=== PATIENT | male | born 1975 | race Caucasian/White ===

== ENCOUNTER 2024-02-07 15:39 | Inpatient (IN) | payer BC, SELFPAY ==
[2024-02-07] VITALS (65 sets, daily range): BP systolic 147–240; BP diastolic 87–140; PULSE 63–85; TEMP 36.4–36.9; O2SAT 94–98; BMI 53.1; BMI 53.9
--- NOTE | 2024-02-07 15:57 | XR_ITS ---
The [address] [address] Patient Name: HEMANTH RIVERA MRN: [id number] date: 1975 Sex: M Assigned Patient Location: ER Current Patient Location: ER Accession/Order Number: [id number] Exam Date: 02/07/2024 16:15 Report Date: 02/07/2024 16:27 At the request of: VALERIE PAULSON Procedure: XR chest 1V EXAMINATION: XR chest 1V HISTORY: SOB COMPARISON: No relevant comparison available. FINDINGS: LUNGS: Mild haziness within the mid lung regions bilaterally partially obscuring the bronchovascular markings. Slight wall thickening of a few bronchi. VASCULATURE: No increased pulmonary vasculature. PLEURA: No pneumothorax, effusion, or pleural thickening. CARDIAC: No cardiomegaly or cardiac silhouette abnormality. MEDIASTINUM: No visible mass or adenopathy. BONES: No fracture or visible bone lesion. OTHER: Negative. XR/XR chest 1V IMPRESSION: 1. Examination is limited by patient body habitus and AP portable technique. 2. Possible mild bronchiolitis. 2. Mild pulmonary infiltrates/pulmonary edema versus atelectasis. Electronically authenticated by: JUAN JC Date: 02/07/2024 16:27
--- NOTE | 2024-02-07 15:57 | ECG_ITS ---
The [facility] Test Date: 2024-02-07 Pat Name: HEMANTH RIVERA Department: Room: - Gender: Male [employer] Worker: : 1975 Requested By: Order Number: [id number] Reading MD: AJ MURRAY Measurements Intervals [place] Rate: 63 P: 20 [place]: 190 QRS: -50 QRSD: 102 T: 77 QT: 420 QTc: 427 Interpretive Statements 1100 Sinus rhythm 2630 Left anterior fascicular block 5234 Left ventricular hypertrophy with repolarization abnormality 9150 abnormal ECG No previous ECG available for comparison Electronically Signed On 02-08-2024 8:56:40 EST by AJ MURRAY
--- NOTE | 2024-02-07 15:58 | ED.GENADUL1 ---
HPI HPI - General Adult General Chief complaint: Shortness of Breath/Dyspnea Stated complaint: SOB Time Seen by Provider: 02/07/24 15:48 History of Present Illness HPI narrative: 49-year-old male presents for shortness of breath. He has been having this for for 5 days and it only comes on with exertion. He has not had any pain or fever or cough. He has had no symptoms like this in the past. He does not smoke and never did. He has no history of asthma or heart disease. He has a history of hypertension and has been taking his blood pressure medicine regularly. He reports he had an ultrasound of his leg 2 days ago at another facility to check the valves. He does not know the result of the test. Related Data Home Medications ?Medication ?Instructions ?Recorded ?Confirmed hydrochlorothiazide 25 mg tablet mg 02/07/24 lisinopril 40 mg tablet mg 02/07/24 metoprolol succinate 200 mg mg PO 02/07/24 tablet,extended release 24 hr Allergies Allergy/AdvReac Type Severity Reaction Status Date / Time No Known Drug Allergies Allergy Verified 02/07/24 15:49 Opioid HPI Opioid Management Most Recent Opioid Data: No Data to Display Review of Systems ROS Narrative A ten point review of systems is negative except as noted above. PFSH PFSH Social History Little interest or pleasure in doing things: not at all Feeling down, depressed, or hopeless: not at all Exam Narrative Exam Narrative: Nurses note and vital signs reviewed and patient is not hypoxic. General: The patient appears well and in no apparent distress and is speaking in full sentences. Patient is resting comfortably on cart. Skin: Warm, dry, no pallor noted. There is no rash noted. Head: Normocephalic, atraumatic Eye: Normal conjunctiva, no drainage Ears, Nose, Mouth, and Throat: oral mucosa is moist. Nares patent. Cardiovascular: Regular Rate and Rhythm Respiratory: Patient is in no distress, no accessory muscle use, lungs are clear to auscultation, no wheezing, rales or rhonchi Back: non-tender GI: Obese and nontender Musculoskeletal: Left leg is swollen compared to the right Neurological: A&O, normal speech Psychiatric: Cooperative Constitutional Vital Signs, click to edit/add: Last Vital Signs Temp 98.4 F 02/07/24 15:53 Pulse 67 02/07/24 15:53 Resp 18 02/07/24 15:53 BP 188/100 H 02/07/24 17:57 Pulse Ox 95 02/07/24 16:14 O2 Del Method Room Air 02/07/24 16:14 Course Vital Signs Vital signs: Vital Signs Temperature 98.4 F 02/07/24 15:53 Pulse Rate 67 02/07/24 15:53 Respiratory Rate 18 02/07/24 15:53 Blood Pressure 200/140 H 02/07/24 15:53 Pulse Oximetry 96 02/07/24 15:53 Oxygen Delivery Method Room Air 02/07/24 15:53 Temperature 98.4 F 02/07/24 15:53 Pulse Rate 67 02/07/24 15:53 Respiratory Rate 18 02/07/24 15:53 Blood Pressure 188/100 H 02/07/24 17:57 Pulse Oximetry 95 02/07/24 16:14 Oxygen Delivery Method Room Air 02/07/24 16:14 Medical Decision Making MDM Narrative Medical decision making narrative: Chest x-ray is consistent with heart failure and BUN and creatinine are elevated. In December of last year he had a normal BUN and creatinine. He was given IV Bumex and is being admitted. D-dimer is elevated but he had a negative Doppler of his left leg on February 04, 2 days ago. He will likely need VQ scan because he cannot receive IV contrast and was given a single dose of Lovenox here. He is hemodynamically stable and agreeable for admission. Treatment diagnosis and disposition were discussed with the patient Differential Diagnosis Differential Diagnosis: Pneumonia, heart failure, pulmonary edema, kidney failure Lab Data Lab results reviewed: Yes I reviewed the patient's lab results Labs: Lab Results 02/07/24 02/07/24 Range/Units 16:08 17:47 WBC 9.0 (4.0-11.0) 10^3/uL RBC 4.16 L (4.70-6.10) 10^6/uL Hgb 12.1 L (14.0-18.0) g/dL Hct 37.7 L (42.0-54.0) % MCV 90.6 (80.0-94.0) fL MCH 29.1 (25.9-34.0) pg MCHC 32.1 (29.9-35.2) g/dL RDW 13.2 (11.0-15.0) % Plt Count 305 (150-450) 10^3/uL MPV 10.6 (9.5-13.5) fL Neut % (Auto) 65.5 (43.0-75.0) % Lymph % (Auto) 23.1 (20.5-60.0) % [place] % (Auto) 5.9 (1.7-12.0) % Eos % (Auto) 4.1 (0.9-7.0) % Baso % (Auto) 1.2 (0.2-2.0) % Neut # (Auto) 5.9 (1.4-6.5) 10^3/uL Lymph # (Auto) 2.1 (1.2-3.8) 10^3/uL [place] # (Auto) 0.5 (0.3-0.8) 10^3/uL Eos # (Auto) 0.4 (0.0-0.7) 10^3/uL Baso # (Auto) 0.1 (0.0-0.1) 10^3/uL Abs Immat Gran (auto) 0.02 (0.00-0.03) 10^3/uL Imm/Tot Granulo (auto) 0.2 (0.0-0.5) % D-Dimer 1.47 H* (<=0.59) mg/L FEU Sodium 142 (136-145) mmol/L Potassium 4.6 (3.5-5.1) mmol/L Chloride 108 H (98-107) mmol/L Carbon Dioxide 26.5 (21.0-32.0) mmol/L Anion Gap 12.1 BUN 41.0 H (7.0-18.0) mg/dL Creatinine 2.81 H (0.70-1.30) mg/dL Est GFR ( Amer) 29 L (>=60 mL/min/1.73m^2) Est GFR (Non-Af Amer) 24 L (>=60 mL/min/1.73m^2) BUN/Creatinine Ratio 14.6 Glucose 101 (74-106) mg/dL Calcium 8.5 (8.5-10.1) mg/dL Troponin I High Sens 79.2 H* 70.6 (4.0-76.1) pg/mL Influenza Type A Ag Negative Influenza Type B Ag Negative SARS-CoV-2 Ag (CV2AG) Negative (NEGATIVE) Imaging Data Chest x-ray: Radiologist's impression: ITS Impressions Chest X-Ray 02/07/24 15:57 IMPRESSION: 1. Examination is limited by patient body habitus and AP portable technique. 2. Possible mild bronchiolitis. 2. Mild pulmonary infiltrates/pulmonary edema versus atelectasis. Electronically authenticated by: JUAN JC Date: 02/07/2024 16:27 ECG Data Attestation: I personally reviewed and interpreted this ECG as follows: (EKG on my interpretation shows normal sinus rhythm with LVH) Critical Care Time Critical Care Time Critical Care Time: Yes Total Critical Care Time: 35 Attestation: Due to the high probability of sudden and clinically significant deterioration in the patient's condition he/she required the highest level of my preparedness to intervene urgently I provided critical care time including documentation time, medication orders and management, reevaluation, vital sign assessment, ordering and reviewing of lab tests, ordering and reviewing of x-ray studies, and admission orders. Aggregate critical care time is 35 minutes including only time during which I was engaged in work directly related to his/her care and did not include time spent treating other patients simultaneously. Discharge Plan Discharge Chief Complaint: Shortness of Breath/Dyspnea Clinical Impression: Congestive heart failure, Acute kidney injury, Essential hypertension Patient Disposition: Admitted As Inpatient Time of Disposition Decision: 18:30 Condition: Fair
[2024-02-07 16:28] LABS: Basophils Absolute Auto 0.1 10^3/uL (0.0-0.1); Basophils Percent Auto 1.2 % (0.2-2.0); Eosinophils Absolute Auto 0.4 10^3/uL (0.0-0.7); Eosinophils Percent Auto 4.1 % (0.9-7.0); Hematocrit 37.7 % (42.0-54.0); Hemoglobin 12.1 g/dL (14.0-18.0); Immature Granulocytes Abs Auto 0.02 10^3/uL (0.00-0.03); Immature Granulocytes Pct Auto 0.2 % (0.0-0.5); Lymphocytes Absolute Auto 2.1 10^3/uL (1.2-3.8); Lymphocytes Percent Auto 23.1 % (20.5-60.0); Mean Corpuscular HGB Conc 32.1 g/dL (29.9-35.2); Mean Corpuscular Hemoglobin 29.1 pg (25.9-34.0); Mean Corpuscular Volume 90.6 fL (80.0-94.0); Mean Platelet Volume 10.6 fL (9.5-13.5); Monocytes Absolute Auto 0.5 10^3/uL (0.3-0.8); Monocytes Percent Auto 5.9 % (1.7-12.0); Neutrophils Absolute Auto 5.9 10^3/uL (1.4-6.5); Neutrophils Percent Auto 65.5 % (43.0-75.0); Platelet Count 305 10^3/uL (150-450); Red Blood Count 4.16 10^6/uL (4.70-6.10); Red Cell Distribution Width 13.2 % (11.0-15.0)
[2024-02-07 16:41] LABS: Influenza Virus A Antigen Negative; Influenza Virus B Antigen Negative; Internal Control Within Normal Limits; SARS-CoV-2 Ag NEGATIVE (NEGATIVE)
[2024-02-07 16:49] LABS: Anion Gap 12.1; BUN Creatinine Ratio 14.6; Calcium 8.5 mg/dL (8.5-10.1); Carbon Dioxide 26.5 mmol/L (21.0-32.0); Chloride 108 mmol/L (98-107); Estimated GFR (African America 29 (>=60 mL/min/1.73m^2); Estimated GFR (Non-African Ame 24 (>=60 mL/min/1.73m^2); Glucose 101 mg/dL (74-106); Potassium 4.6 mmol/L (3.5-5.1); Sodium 142 mmol/L (136-145)
[2024-02-07 16:57] LABS: D Dimer 1.47 mg/L FEU (<=0.59)
[2024-02-07 16:58] LABS: Troponin I High Sensitivity 79.2 pg/mL (4.0-76.1)
[2024-02-07] MEDS: HYDRALAZINE HCL 20 MG/ML VIAL 10 MG IVP ×2 (17:12→18:39)
[2024-02-07 18:11] LABS: Troponin I High Sensitivity 70.6 pg/mL (4.0-76.1)
[2024-02-07] MEDS: BUMETANIDE 1 MG/4 ML VIAL IVP (18:39)
[2024-02-07] MEDS: ENOXAPARIN SODIUM 100 MG/ML SYRINGE 150 MG SUBQ (18:40)
[2024-02-07] MEDS: LABETALOL HCL 20 MG/4 ML SYRINGE 10 MG IVP (21:10)
[2024-02-07] MEDS: NITROGLYCERIN 0.4 MG BOTTLE SL (21:11)
[2024-02-07 21:36] LABS: Troponin I High Sensitivity 68.6 pg/mL (4.0-76.1)
[2024-02-07] MEDS: NICARDIPINE IN NACL, ISO-OSM 40 MG/200 ML PIGGYBACK 25 MG IV (21:57)
[2024-02-07 22:00] LABS: Magnesium 2.1 mg/dL (1.8-2.4)
[2024-02-07 22:42] LABS: Bilirubin Urine NEGATIVE (NEGATIVE); Blood Urine SMALL (NEGATIVE); Clarity Urine CLEAR (CLEAR); Color Urine LT. YELLOW (YELLOW); Glucose Urine UA NEGATIVE (NEGATIVE); Ketones Urine NEGATIVE (NEGATIVE); Leukocyte Esterase Urine NEGATIVE (NEGATIVE); Nitrite Urine NEGATIVE (NEGATIVE); Protein Urine >=300 mg/dL (NEG/TRACE); Specific Gravity Urine 1.015 (1.005-1.025); Urobilinogen Urine 0.2 EU/dL (0.2-1.0); pH Urine 6.5 (5.0-9.0)
[2024-02-07 22:54] LABS: Amphetamine Screen Urine NEGATIVE (NEGATIVE); Bacteria Urine TRACE #/HPF (NONE SEEN); Barbiturates Screen Urine NEGATIVE (NEGATIVE); Benzodiazepines Screen Urine NEGATIVE (NEGATIVE); Buprenorphine Screen Urine NEGATIVE (NEGATIVE); Cannabinoid Screen Urine NEGATIVE (NEGATIVE); Cast Seen? NONE SEEN #/LPF (NONE SEEN); Cocaine Screen Urine NEGATIVE (NEGATIVE); Crystals Seen? None Seen #/HPF (None Seen); Methadone Screen Urine NEGATIVE (NEGATIVE); Methamphetamines Screen Urine NEGATIVE (NEGATIVE); Mucus Urine NONE SEEN (NONE SEEN); Opiate Screen Urine NEGATIVE (NEGATIVE); Oxycodone Screen Urine NEGATIVE (NEGATIVE); Phencyclidine Screen Urine NEGATIVE (NEGATIVE); RBC Urine 0-2 #/HPF (0-2); Squamous Epithelial Cell Urine NONE SEEN #/LPF (NONE/RARE); Tricyclic Antidepressant Urine NEGATIVE (NEGATIVE); WBC Urine 0-2 #/HPF (NONE SEEN)
[2024-02-08] VITALS (73 sets, daily range): BP systolic 120–203; BP diastolic 73–127; PULSE 56–88; TEMP 36.5–36.7; O2SAT 93–97
[2024-02-08] MEDS: NICARDIPINE IN NACL, ISO-OSM 40 MG/200 ML PIGGYBACK 25 MG IV (04:15)
[2024-02-08] MEDS: ACETAMINOPHEN 325 MG TABLET 650 MG PO (05:17)
[2024-02-08 06:38] LABS: Basophils Absolute Auto 0.1 10^3/uL (0.0-0.1); Basophils Percent Auto 1.2 % (0.2-2.0); Eosinophils Absolute Auto 0.3 10^3/uL (0.0-0.7); Eosinophils Percent Auto 3.5 % (0.9-7.0); Hematocrit 39.2 % (42.0-54.0); Hemoglobin 12.6 g/dL (14.0-18.0); Immature Granulocytes Abs Auto 0.01 10^3/uL (0.00-0.03); Immature Granulocytes Pct Auto 0.1 % (0.0-0.5); Lymphocytes Absolute Auto 2.3 10^3/uL (1.2-3.8); Lymphocytes Percent Auto 25.4 % (20.5-60.0); Mean Corpuscular HGB Conc 32.1 g/dL (29.9-35.2); Mean Corpuscular Hemoglobin 28.8 pg (25.9-34.0); Mean Corpuscular Volume 89.5 fL (80.0-94.0); Mean Platelet Volume 10.7 fL (9.5-13.5); Monocytes Absolute Auto 0.5 10^3/uL (0.3-0.8); Neutrophils Absolute Auto 5.8 10^3/uL (1.4-6.5); Neutrophils Percent Auto 63.8 % (43.0-75.0); Platelet Count 325 10^3/uL (150-450); Red Blood Count 4.38 10^6/uL (4.70-6.10); Red Cell Distribution Width 13.3 % (11.0-15.0); White Blood Count 9.1 10^3/uL (4.0-11.0)
--- NOTE | 2024-02-08 06:53 | P.HP_ITS ---
HPI H&P: HPI History of Present Illness Chief complaint: CHF , DELIO, ESSENTIAL HYPERTENSION, Narrative: Patient presented to the emergency room with increasing shortness of breath, some headache. Mostly just the shortness of breath. In ER found to have significantly elevated high blood pressure and acute renal failure. Patient admitted for workup and treatment of same Opioid HPI Opioid Management Most Recent Pain and Opioid Data: Last Pain Scale 1 02/08/24 06:35 02/08/24 Last Pain Assessment 02/08/24 12:00 Last MAR Pain Assessment 02/08/24 06:35 Last ORT Total Score 0 02/07/24 20:37 02/07/24 Last ORT Risk Category Low Risk 02/07/24 20:37 02/07/24 Ur Phencyclidine Scrn Negative (NEGATIVE) 02/07/24 22:28 08/25 Review of Systems ROS Status of ROS 10 or more systems reviewed and unremark able except as noted in history and below PFSH PFSH Medical History Hypertension ?I10 - Essential (primary) hypertension (ICD-10) Family History Other Family history of diabetes mellitus Family history of hypertension Family history of myocardial infarction Social History Within the past year, how often did you have a drink containing alcohol: monthly or less Within the past year, how many standard drinks containing alcohol did you have on a typical day: 1 or 2 Total score: 0 Score interpretation: A score less than 4 is consistent with normal alcohol consumption. 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 Highest level of school completed/degree received: high school graduate Are you now , , , , never or living with a partner: In a typical week, how many times do you talk on the telephone with family, friends, or neighbors: 3 or more times per week How often do you get together with friends or relatives: 3 or more times per week Little interest or pleasure in doing things: not at all Feeling down, depressed, or hopeless: not at all Do you think of yourself as: straight/heterosexual Gender Identity: male Meds Home Medications and Allergies Home Medications ?Medication ?Instructions ?Recorded ?Confirmed ?Type hydrochlorothiazide 25 mg tablet 25 mg PO DAILY 02/07/24 02/07/24 History lisinopril 40 mg tablet 40 mg PO DAILY 02/07/24 02/07/24 History metoprolol succinate 200 mg 200 mg PO DAILY 02/07/24 02/07/24 History tablet,extended release 24 hr Allergies Allergy/AdvReac Type Severity Reaction Status Date / Time No Known Drug Allergies Allergy Verified 02/07/24 15:49 Exam Constitutional Vital Signs, click to edit/add: Last Vital Signs Temp 98.2 F 02/07/24 23:32 Pulse 70 02/08/24 06:15 Resp 16 02/08/24 06:15 BP 167/86 H 02/08/24 06:15 Pulse Ox 97 02/08/24 05:00 O2 Del Method Room Air 02/08/24 05:00 Documenting provider has reviewed patient's vital signs: yes Common normals: no apparent distress Lymph Other: Possibly lymphedema lower extremities Chest Common normals: inspection of chest normal and palpation of chest normal Respiratory Common normals: normal respiratory effort and no retractions Cardio Common normals: regular rate and regular rhythm GI Common normals: Normal to inspection, nondistended, normoactive bowel sounds present Extremity Common normals: abnormal to inspection (Chronic but appears to be more venous stasis type edema) Results Labs Labs: Short CBC 02/07/24 02/08/24 Range/Units 16:08 05:38 WBC 9.0 9.1 (4.0-11.0) 10^3/uL Hgb 12.1 L 12.6 L (14.0-18.0) g/dL Hct 37.7 L 39.2 L (42.0-54.0) % Plt Count 305 325 (150-450) 10^3/uL BMP 02/07/24 16:08 Sodium 142 Potassium 4.6 Chloride 108 H Carbon Dioxide 26.5 BUN 41.0 H Creatinine 2.81 H Glucose 101 Calcium 8.5 Urine 02/07/24 Range/Units 22:28 Urine Color Lt. yellow (YELLOW) Urine Clarity Clear (CLEAR) Urine pH 6.5 (5.0-9.0) Ur Specific [place] 1.015 (1.005-1.025) Urine Protein >=300 A (NEG/TRACE) mg/dL Urine Glucose (UA) Negative (NEGATIVE) mg/dL Assessment and Plan Assessment and Plan (1) Essential hypertension: (2) Acute kidney injury: (3) Congestive heart failure: Plan Admission findings: Respiratory distress, significantly elevated systolic and diastolic blood pressure resulting in heart failure consistent with hypertensive emergency. Patient transferred to ICU on Cardene drip Hypertensive emergency(organs affected her lung heart and kidney)-shortness of breath is slightly better this morning. Blood pressure is better this morning. Able to wean off of the Cardene drip. Will adjust his oral medications. Have patient ambulate to evaluate the shortness of breath. Elevated high-sensitivity troponin I think this is likely secondary to the hypertensive emergency. His troponins are trending downward currently Elevated BNP-I think this is related to his hypertensive emergency. It is slightly elevated further today. He did have some urine output last night with the diuresis with the Bumex, chest x-ray is clear and the edema that he does have appears to be more consistent with venous stasis which she is in the workup for that Iron deficiency anemia-monitor daily Proteinuria likely secondary to the hypertensive urgency-follow as an outpatient Acute kidney injury secondary to the hypertensive emergency. Creatinine is somewhat better today. Continue to monitor Admission status: Patient with hypertensive emergency organs affected her lung heart and kidney-placed on Cardene drip and transferred to ICU, medically necessary treatment will span 2 midnights. Inpatient status.
[2024-02-08 07:07] LABS: INR 1.03; Partial Thromboplastin Time 32.5 sec (22.3-36.2); Prothrombin Time 10.9 sec (9.0-11.6)
[2024-02-08 07:27] LABS: Alanine Aminotransferase 26 U/L (16-63); Albumin Globulin Ratio 0.6; Albumin Level 2.6 g/dL (3.4-5.0); Alkaline Phosphatase 98 U/L (46-116); Anion Gap 14.3; Aspartate Amino Transferase 19 U/L (15-37); BUN Creatinine Ratio 14.1; Bilirubin Total 0.6 mg/dL (0.2-1.0); Calcium 8.8 mg/dL (8.5-10.1); Carbon Dioxide 23.6 mmol/L (21.0-32.0); Chloride 109 mmol/L (98-107); Estimated GFR (African America 32 (>=60 mL/min/1.73m^2); Estimated GFR (Non-African Ame 27 (>=60 mL/min/1.73m^2); Globulin 4.5 g/dL; Glucose 82 mg/dL (74-106); Magnesium 1.9 mg/dL (1.8-2.4); Potassium 3.9 mmol/L (3.5-5.1); Sodium 143 mmol/L (136-145); Total Protein 7.1 g/dL (6.4-8.2)
[2024-02-08] MEDS: AMLODIPINE BESYLATE 5 MG TABLET 2.5 MG PO ×2 (07:27→09:59)
[2024-02-08] MEDS: METOPROLOL SUCCINATE 100 MG TAB.ER.24H 200 MG PO (07:27)
[2024-02-08 07:33] LABS: Thyroid Stimulating Hormone 2.921 uIU/mL (0.358-3.740)
[2024-02-08] MEDS: CLONIDINE HCL 0.1 MG TABLET PO ×3 (09:59→21:15)
--- NOTE | 2024-02-08 13:44 | PC.NURSE ---
aware of transfer to room 203. ambulated to room with family and belongings. report given to carmen gallagher
[2024-02-08] MEDS: LABETALOL HCL 20 MG/4 ML SYRINGE 10 MG IVP (21:15)
[2024-02-09] VITALS (11 sets, daily range): BP systolic 156–203; BP diastolic 76–127; PULSE 57–74; TEMP 36.4–36.7; O2SAT 94–96
[2024-02-09] MEDS: CLONIDINE HCL 0.1 MG TABLET PO (05:54)
[2024-02-09 06:28] LABS: Basophils Absolute Auto 0.1 10^3/uL (0.0-0.1); Basophils Percent Auto 1.4 % (0.2-2.0); Eosinophils Absolute Auto 0.4 10^3/uL (0.0-0.7); Eosinophils Percent Auto 5.1 % (0.9-7.0); Hematocrit 38.5 % (42.0-54.0); Hemoglobin 12.1 g/dL (14.0-18.0); Immature Granulocytes Abs Auto 0.01 10^3/uL (0.00-0.03); Immature Granulocytes Pct Auto 0.1 % (0.0-0.5); Lymphocytes Absolute Auto 2.5 10^3/uL (1.2-3.8); Lymphocytes Percent Auto 32.4 % (20.5-60.0); Mean Corpuscular HGB Conc 31.4 g/dL (29.9-35.2); Mean Corpuscular Hemoglobin 28.5 pg (25.9-34.0); Mean Corpuscular Volume 90.6 fL (80.0-94.0); Mean Platelet Volume 10.2 fL (9.5-13.5); Monocytes Absolute Auto 0.5 10^3/uL (0.3-0.8); Monocytes Percent Auto 6.7 % (1.7-12.0); Neutrophils Absolute Auto 4.1 10^3/uL (1.4-6.5); Neutrophils Percent Auto 54.3 % (43.0-75.0); Platelet Count 302 10^3/uL (150-450); Red Blood Count 4.25 10^6/uL (4.70-6.10); Red Cell Distribution Width 13.6 % (11.0-15.0); White Blood Count 7.6 10^3/uL (4.0-11.0)
[2024-02-09 06:48] LABS: Anion Gap 14.9; BUN Creatinine Ratio 15.2; Calcium 8.6 mg/dL (8.5-10.1); Carbon Dioxide 24.4 mmol/L (21.0-32.0); Chloride 109 mmol/L (98-107); Estimated GFR (African America 33 (>=60 mL/min/1.73m^2); Estimated GFR (Non-African Ame 27 (>=60 mL/min/1.73m^2); Glucose 81 mg/dL (74-106); Potassium 4.3 mmol/L (3.5-5.1); Sodium 144 mmol/L (136-145)
[2024-02-09] MEDS: METOPROLOL SUCCINATE 100 MG TAB.ER.24H 200 MG PO (08:43)
[2024-02-09] MEDS: AMLODIPINE BESYLATE 5 MG TABLET 10 MG PO (08:43)
--- NOTE | 2024-02-09 09:01 | P.DS_ITS ---
DS: Providers Provider Date of admission: 02/07/24 20:26 Primary care physician: JOHANN LEE DS: Diagnosis Discharge Diagnosis (1) Essential hypertension: (2) Acute kidney injury: (3) Congestive heart failure: Plan Admission findings: Respiratory distress, significantly elevated systolic and diastolic blood pressure resulting in heart failure consistent with hypertensive emergency. Patient transferred to ICU on Cardene drip Hypertensive emergency(organs affected her lung heart and kidney)-shortness of breath is slightly better this morning. Blood pressure is better this morning. Able to wean off of the Cardene drip. Will adjust his oral medications. Have patient ambulate to evaluate the shortness of breath. Elevated high-sensitivity troponin I think this is likely secondary to the hypertensive emergency. His troponins are trending downward currently Elevated BNP-I think this is related to his hypertensive emergency. It is slightly elevated further today. He did have some urine output last night with the diuresis with the Bumex, chest x-ray is clear and the edema that he does have appears to be more consistent with venous stasis which she is in the workup for that Iron deficiency anemia-monitor daily Proteinuria likely secondary to the hypertensive urgency-follow as an outpatient Acute kidney injury secondary to the hypertensive emergency. Creatinine is somewhat better today. Continue to monitor Admission status: Patient with hypertensive emergency organs affected her lung heart and kidney-placed on Cardene drip and transferred to ICU, medically necessary treatment will span 2 midnights. Inpatient status. ? DS: Summary Hospital Course Hospital Course: Patient presented to the emergency with increasing shortness of breath and headache. Found to have hypertensive emergency. Placed on Cardene drip and transferred to the intensive care unit, medications were adjusted we are able to wean him off of his Cardene drip, still having significant elevations in blood pressures and medications were adjusted the day prior to discharge, blood pressure still up this morning and clonidine was increased to 0.2 mg 3 times a day. If he stable later today can be discharged to home in improving condition. Medications see list. Follow-up with his PCP WILLIAM. Status at Discharge Overall status at discharge: patient is not back to baseline Time Spent with Patient Time attestation: Total time spent providing and/or coordinating discharge services: Time spent: greater than 30 minutes Exam Constitutional Vital Signs, click to edit/add: Last Vital Signs Temp 97.6 F 02/09/24 05:53 Pulse 61 02/09/24 07:52 Resp 19 02/09/24 05:53 BP 173/100 H 02/09/24 05:53 Pulse Ox 96 02/09/24 05:53 O2 Del Method Room Air 02/09/24 05:53 Documenting provider has reviewed patient's vital signs: yes Common normals: no apparent distress Lymph Other: Possibly lymphedema lower extremities Chest Common normals: inspection of chest normal and palpation of chest normal Respiratory Common normals: normal respiratory effort and no retractions Cardio Common normals: regular rate and regular rhythm GI Common normals: Normal to inspection, nondistended, normoactive bowel sounds present Extremity Common normals: abnormal to inspection (Chronic but appears to be more venous stasis type edema) DS: Data Data Completed and Pending Labs on day of discharge: Labs from last 24 hours 02/09/24 05:56 WBC 7.6 RBC 4.25 L Hgb 12.1 L Hct 38.5 L MCV 90.6 MCH 28.5 MCHC 31.4 RDW 13.6 Plt Count 302 MPV 10.2 Neut % (Auto) 54.3 Lymph % (Auto) 32.4 [place] % (Auto) 6.7 Eos % (Auto) 5.1 Baso % (Auto) 1.4 Neut # (Auto) 4.1 Lymph # (Auto) 2.5 [place] # (Auto) 0.5 Eos # (Auto) 0.4 Baso # (Auto) 0.1 Abs Immat Gran (auto) 0.01 Imm/Tot Granulo (auto) 0.1 Sodium 144 Potassium 4.3 Chloride 109 H Carbon Dioxide 24.4 Anion Gap 14.9 BUN 38.0 H Creatinine 2.50 H Est GFR ( Amer) 33 L Est GFR (Non-Af Amer) 27 L BUN/Creatinine Ratio 15.2 Glucose 81 Calcium 8.6 NT-Pro-B Natriuret Pep 1600.0 H* Discharge Plan Discharge Disposition: Home, Self-Care Condition: Fair Discharge Medications: New clonidine HCl 0.1 mg Tablet 0.1 mg PO TID Qty: 90 11RF amlodipine 10 mg tablet 10 mg PO DAILY Qty: 30 11RF Continued metoprolol succinate 200 mg tablet extended release 24 hr 200 mg PO DAILY hydrochlorothiazide 25 mg tablet 25 mg PO DAILY Discontinued lisinopril 40 mg tablet 40 mg PO DAILY Activity: resume usual activities as tolerated Diet: diabetic diet Print Language: Kinyarwanda Patient Instructions: Acute Kidney Injury (DC), Chronic Hypertension (DC), Hypertensive Crisis (DC) Forms: Portal Instructions Follow Up Appointments: Follow up with Dr. Lee next week Discuss BP medications Discharge Date/Time: 02/09/24 15:30
[2024-02-09] MEDS: CLONIDINE HCL 0.1 MG TABLET 0.2 MG PO (13:18)
--- NOTE | 2024-02-11 14:33 | CM.DCFOLLOWU ---
Person spoke with: patient How are you feeling?well How is your pain?no pain Did you understand your discharge instructions?yes Do you have any questions about your discharge instructions?no Were you given any prescriptions at discharge?yes Were you able to get your prescriptions filled?yes Do you understand how to take your medications as ordered?yes Do you have any questions about your follow up appointment and do you plan to keep your follow up appointment? no questions, already had follow up with PCP and spoke about BP meds Is there anything else that you would like to discuss?no Questions/Comments/Concerns/Other:none
== END 2024-02-09 15:30 | disposition home or self-care (01) | DRG 305 ==
LOC: ER 18:30 → MS 20:29 → ICU 21:51 → MS 02-08 13:47
PROVIDERS: Internal Medicine; Registered Nurse; Admitting Provider Family Medicine; Emergency Provider Emergency Medicine; PCP Family Medicine; Visit Provider Family Medicine
DX: I16.1 Hypertensive emergency (principal); N17.9 Acute kidney failure, unspecified; D50.9 Iron deficiency anemia, unspecified; I11.0 Hypertensive heart disease with heart failure; R80.9 Proteinuria, unspecified; I50.9 Heart failure, unspecified; R06.03 Acute respiratory distress; I87.8 Other specified disorders of veins; R79.89 Other specified abnormal findings of blood chemistry
CPT/HCPCS: 36415; 71045; 80048; 80053; 80307; 81001; 83735; 83880; 84100; 84436; 84443; 84484; 85025; 85378; 85610; 85730; 87804; 87811; 93005; 94761; 96372; 96374; 96375; 96376; 99285; J0360; J1650; J1920; J2404

== ENCOUNTER 2024-10-22 21:59 | Inpatient (IN) | payer BC, SELFPAY ==
--- OUTSIDE RECORDS SUMMARY | 2024-10-22 22:05 | XMS_ITS | CCD ---
Author Organization [facility]iniSy[facility] Care Team Providers Care Statement Distribution Clerk Name Role Phone ROSA, DR JUVENCIO Fish Consulting Unavailable ROSA, DR JUVENCIO Fish Attending Unavailable ROSA, DR JUVENCIO Fish Admitting Unavailable ROSA, DR JUVENCIO Fish Primary Care Unavailable ILAERMELINDA Admitting Unavailable ILAERMELINDA Attending Unavailable ROSA, DR JUVENCIO Fish Primary Care Unavailable Rosa, DO Juvencio M. Primary Care Provider Rosa, DO Juvencio M. Referring Provider [phone] MD Eber Krause Attending Provider [phone] Rosa, Juvencio Unavailable Michelle Cristina Unavailable Rosa, DO Juvencio M. Primary Care Provider MICHELE Cristina Attending Provider ROSA, JUVENCIO M Primary Care Physician Rosa, DO Juvencio M. Primary Care Provider MICHELE Cristina Attending Provider [phone] EDVIN HASTINGS. Attending Unavailab EDVIN Webb Referring Unavailab EDVIN Webb Admitting Unavailab le ROSA, JUVENCIO M Admitting Unavailable ROSA, JUVENCIO M Attending Unavailable ROSA, JUVENCIO M Referring Unavailable Rosa DO, Juvencio M. Primary Care Provider Edvin Hastings MD Attending Provider Rosa DO, Juvencio M. Primary Care Provider Daniel Gloria MD Attending Provider Juvencio Lee Primary Care Unavailable Edvin Hastings Admitting Edvin Alicia Attending Lettyabl e Daniel Gloria Admitting Unavai lable FranciaomDaniel styles Attending Unavai lable Rosa Juvencio MBaljeet Primary Care Unavailable Daniel Gloria Attending Unavai lable Rosa Juvencio MBaljeet Primary Care Unavailable Daniel Gloria Admitting Unavai lable FranciaomDaniel styles Attending Unavai lable Rosa Juvencio MBaljeet Primary Care Unavailable Daniel Gloria Admitting Unavai lable Rosa DO, Juvencio MBaljeet Primary Care Provider Juvencio Lee DO Referring Provider Daniel Gloria MD Attending Provider Juvencio Lee DO Attending Provider Edvin Hastings MD Attending Provider [phone] Medications Current Medications Medication Drug Class(es) Dates Sig (Normalized) Sig (Original) acetaminophen 500 mg oral tablet (15 sources) Start: 05-07-2023 take 1 tablet by mouth every six hours as needed Acetaminophen (Tylenol Extra Strength) 500 mg tablet Active 1 TAB PO Every 6 hours May 07, 2023 1:00am FreeTextSi tablet as needed Orally every 6 hrs; Note: Source Status: Taking; Provider: Rosa Henning ( ) Complies with drug therapy take 1 tablet by mouth every six hours Tylenol Extra Strength 500 MG 1 tablet as needed Orally every 6 hrs Active amLODIPine 10 mg oral tablet (20 sources) Dihydropyridine Calcium Channel Jasson Start: 02-10-2024 take 1 tablet by mouth once daily Amlodipine 10 mg tablet Active 10 MG PO Daily February 10, 2024 1:00am Complies with drug therapy Start: 05-07-2023 End: 12-25-2023 take 5 mg by mouth once daily Amlodipine 10 mg tablet Discontinued 5 MG PO Daily May 07, 2023 5:44pm December 25, 2023 3:17pm Start: 05-07-2023 End: 05-07-2023 take 0.5 tablet by mouth once daily Amlodipine 10 mg tablet Discontinued 0.5 TAB PO Daily May 07, 2023 1:00am May 07, 2023 5:45pm FreeTextSi/2 tab Orally Once a day; Note: Source Status: Taking; Refills: 5; Provider: Rosa Fish Start: 05-07-2023 End: 12-25-2023 take 5 mg by mouth once daily Amlodipine Discontinued 5 MG PO Daily May 07, 2023 5:44pm December 25, 2023 3:17pm take 0.5 tablet by m outh once daily amLODIPine Besylate 10 MG 1/2 tab Orally Once a day for 30 days Active take 1 tablet by wilder th every twenty-four hours amLODIPine Besylate 10 MG 1 tablet Orally Once a day for 30 day(s) Active carvedilol 25 mg oral tablet (6 sources) alpha-Adrenergic Jasson, beta-Adrenergic Jasson Start: 07-08-2024 take 1 tablet by mouth twice daily at mealtime Carvedilol (Coreg) 25 mg tablet Active 25 MG PO Twice daily 60 30 July 08, 2024 12:00am must administer with a meal/food Complies with drug therapy cloNIDine hydrochloride 0.1 mg oral tablet (20 sources) Central alpha-2 Adrenergic Agonist Start: 07-08-2024 take 1 tablet by mouth three times daily Clonidine Hcl 0.1 mg tablet Active 0.1 MG PO Three times daily July 08, 2024 3:16pm Complies with drug therapy Start: 03-11-2024 End: 06-10-2024 take 1 tablet by mouth three times daily Clonidine Hcl 0.2 mg tablet Discontinued 0.2 MG PO Three times daily 270 90 March 11, 2024 1:00am June 10, 2024 3:37pm Start: 02-10-2024 End: 07-08-2024 take 2 tablets by mouth three times daily Clonidine Hcl 0.1 mg tablet Discontinued 0.2 MG PO Three times daily February 10, 2024 1:00am July 08, 2024 3:16pm CPAP (13 sources) Start: 05-07-2023 CPAP Active 0 .Route .[facility] May 07, 2023 12:00am Medication Name: CPAP Machine; Note: Source Status: Taking; Provider: JuvencioRosa ( ) Start: 05-07-2023 CPAP Active 0 .Route .[facility] May 07, 2023 1:00am Medication Name: CPAP Machine; Note: Source Status: Taking; Provider: Juvencio Rosa ( ) Start: 05-07-2023 CPAP Active 0 .ROUTE .[facility] May 07, 2023 1:00am Medication Name: CPAP Machine; Note: Source Status: Taking; Provider: JuvencioAnitaes ( ) CPAP Machine (6 sources) CPAP Machine Act frances ergocalciferol 1.25 mg oral capsule (9 sources) Provitamin D2 Compound Start: 2022 take 1 capsule by mouth every week Vitamin D (Ergocalciferol) 1.25 MG (47153 UT) 1 capsule Orally weekly for 90 days Oct, Active hydroCHLOROthiazide 25 mg oral tablet (20 sources) Thiazide Diuretic Start: 2024 take 1 tablet by mouth once daily Hydrochlorothiazide 25 mg tablet Active 25 MG PO Daily September 17, 2024 3:48pm Complies with drug therapy Start: 06-18-2024 End: 09-17-2024 take 1 tablet by mouth once daily Hydrochlorothiazide 25 mg tablet Discontinued 0 .ROUTE .COMPLEX 90 June 18, 2024 7:57am September 17, 2024 3:48pm TAKE 1 TABLET BY MOUTH DAILY Start: 05-07-2023 End: 06-18-2024 take 1 tablet by mouth once daily Hydrochlorothiazide 25 mg tablet Discontinued 25 MG PO Daily May 07, 2023 5:44pm March 09, 2024 1:39pm take 1 tablet by wilder th every twenty-four hours hydroCHLOROthiazide 25 mg 1 tablet in the morning Orally Once a day for 30 day(s) Active Tylenol Extra Strength 500 MG (12 sources) take 1 tablet by wilder th every six hours as needed Tylenol Extra Strength 500 MG 1 tablet as needed Orally every 6 hrs Active Completed/Discontinued Medications Medication Drug Class(es) Dates Sig (Normalized) Sig (Original) lisinopril 40 mg oral tablet (20 sources) Angiotensin Converting Enzyme Inhibitor Start: 12-25-2023 End: 02-10-2024 take 1 tablet by mouth once daily Lisinopril 40 mg tablet Discontinued 40 MG PO Daily December 25, 2023 3:27pm February 10, 2024 4:13pm Start: 06-03-2023 End: 12-25-2023 take 1 tablet by mouth once daily Lisinopril 40 mg tablet Discontinued 0 .ROUTE .COMPLEX June 03, 2023 11:43am December 25, 2023 3:27pm TAKE 1 TABLET BY MOUTH EVERY DAY FOR 30 DAYS Start: 06-03-2023 End: 12-25-2023 take 1 tablet by mouth once daily Lisinopril Discontinued 0 .ROUTE .COMPLEX June 03, 2023 11:43am December 25, 2023 3:27pm TAKE 1 TABLET BY MOUTH EVERY DAY FOR 30 DAYS Start: 05-07-2023 End: 06-03-2023 take 1 tablet by mouth once daily Lisinopril 40 mg tablet Discontinued 40 MG PO Daily May 07, 2023 5:44pm June 03, 2023 11:43am take 1 tablet by wilder th every twenty-four hours Lisinopril 40 mg 1 tablet Orally Once a day for 30 day(s) Active 24 hr metoprolol succinate 200 mg extended release oral tablet (20 sources) beta-Adrenergic Jasson Start: 06-10-2024 End: 07-08-2024 take 1 tablet by mouth once daily Metoprolol Succinate 200 mg tablet extended release 24 hr Discontinued 200 MG PO Daily June 10, 2024 3:37pm July 08, 2024 3:48pm Start: 03-31-2024 End: 06-10-2024 take 1 tablet by mouth once daily Metoprolol Succinate 200 mg tablet extended release 24 hr Discontinued 0 .ROUTE .COMPLEX March 31, 2024 3:24pm June 10, 2024 3:38pm TAKE 1 TABLET BY MOUTH DAILY Start: 03-31-2024 End: 06-10-2024 take 1 tablet by mouth once daily Metoprolol Succinate 200 mg tablet extended release 24 hr Discontinued 0 .ROUTE .COMPLEX March 31, 2024 3:24pm June 10, 2024 3:38pm TAKE 1 TABLET BY MOUTH DAILY Start: 03-31-2024 take 1 tablet by wilder th once daily Metoprolol Succinate 200 mg tablet extended release 24 hr Active 0 .ROUTE .COMPLEX March 31, 2024 3:24pm TAKE 1 TABLET BY MOUTH DAILY Start: 12-25-2023 End: 03-31-2024 take 1 tablet by mouth once daily Metoprolol Succinate 200 mg tablet extended release 24 hr Discontinued 200 MG PO Daily December 25, 2023 3:33pm March 31, 2024 3:24pm Start: 05-07-2023 End: 12-25-2023 take 1 tablet by mouth once daily Metoprolol Succinate 100 mg tablet extended release 24 hr Discontinued 100 MG PO Daily May 07, 2023 1:00am December 25, 2023 3:33pm Start: 05-07-2023 End: 05-07-2023 take 1 tablet by mouth once daily Metoprolol Succinate 50 mg tablet extended release 24 hr Discontinued 50 MG PO Daily May 07, 2023 5:44pm May 07, 2023 5:49pm Start: 11-24-2021 take 1 tablet by wilder th every twenty-four hours Metoprolol Succinate ER 50 MG 1 tablet Orally Once a day for 90 days Nov, Active Start: 11-24-2021 take 1 tablet by wilder th every twenty-four hours Metoprolol Succinate ER 25 MG 1 tablet Orally Once a day for 30 days Nov, Active Problems Active Problems Problem Classification Problem Date Documented Date Episodic/Chronic Coma; stupor; and brain damage (20 sources) Daytime somnolence; Translations: [Somnolence] Onset: 03-08-2021 Resolved: 03-08-2021 Episodic Diabetes mellitus without complication (1 source) Other abnormal glucose; Translations: [Other abnormal glucose] Onset: 07-13-2024 Episodic Essential hypertension (20 sources) Essential (primary) hypertension; Translations: [Malignant hypertension] Onset: 01-23-2021 Resolved: 11-20-2021 Chronic Malaise and fatigue (20 sources) Chronic fatigue, unspecified; Translations: [Fatigue] Onset: 01-23-2021 Resolved: 05-24-2021 Chronic Other connective tissue disease (8 sources) Other specified soft tissue disorders; Translations: [Swelling of limb] 12-25-2023 Episodic Other connective tissue disease (11 sources) Swelling of left lower limb; Translations: [Other specified soft tissue disorders] 2024 Episodic Other diseases of veins and lymphatics (9 sources) Venous insufficiency of leg; Translations: [Venous insufficiency (chronic) (peripheral)] 02-13-2024 Episodic Other diseases of veins and lymphatics (5 sources) Venous insufficiency (chronic) (peripheral); Translations: [Venous (peripheral) insufficiency, unspecified] 02-13-2024 Episodic Other lower respiratory disease (7 sources) Dyspnea on exertion; Translations: [Other forms of dyspnea] 07-08-2024 Episodic Other lower respiratory disease (3 sources) Other forms of dyspnea; Translations: [Other respiratory abnormalities] 07-08-2024 Episodic Other lower respiratory disease (1 source) Dyspnea, unspecified; Translations: [Dyspnea, unspecified] Onset: 08-10-2024 Episodic Other nutritional; endocrine; and metabolic disorders (20 sources) Severe obesity; Translations: [Other obesity due to excess calories] Chronic Other nutritional; endocrine; and metabolic disorders (4 sources) Body mass index (BMI) 50.0-59.9, adult; Translations: [Body Mass Index 50.0-59.9, adult] 06-10-2024 Chronic Other screening for suspected conditions (not mental disorders or infectious disease) (8 sources) Abnormal results of kidney function studies; Translations: [Other specified abnormal findings of blood chemistry] Onset: 08-10-2024 Episodic Residual codes; unclassified (20 sources) Obstructive sleep apnea syndrome; Translations: [Obstructive sleep apnea (adult) (pediatric)] 02-10-2024 Chronic Residual codes; unclassified (6 sources) Obstructive sleep apnea (adult) (pediatric); Translations: [Obstructive sleep apnea (adult)(pediatric)] Onset: 10-25-2021 Resolved: 10-25-2021 Chronic Past or Other Problems Problem Classification Problem Date Documented Da te Episodic/Chronic Varicose veins of lower extremity (1 source) Varicose veins of bilateral lower extremities with pain; Translations: [Varicose veins of bilateral lower extremities with pain] Onset: 02-05-2024 Episodic Results Test Name Value Interpretation Reference Range Facility US renal doppleron US renal doppler [place] [address] Ultrasound Report Signed Patient: Suresh Vallejo MR#: [id number] 0 : 1975 Acct:[id number] Age/Sex: 49 / M ADM Date: 08/10/24 Loc: UL Room: Type: [facility] [place] CLI Attending Dr: Daniel Gloria MD Ordering Provider: Daniel Gloria MD Date of Service: 08/10/24 US/US renal doppler: R/O Renal artery stenosis Copies to: Daniel Gloria MD Renal artery duplex examination performed using B-mode, color flow and spectral Doppler assessment (CPT: 74603) INDICATION: FINDINGS: Aorta: PSV 54.2 cm/s Right Kidney Size: 11.81 cm x 1.69 cm x 6.5 cm Left Kidney Size: 11.09 cm x 5.4 cm x 5.54 cm Right renal artery origin: PSV not visualized Right proximal renal artery: PSV not visualized Right mid renal artery: PSV not visualized Right distal renal artery: PSV not visualized RI: Unable to compute. RAR: Unable to compute Left renal artery origin: PSV not visualized Left proximal renal artery: PSV not visualized Left mid renal artery: PSV not visualized Left distal renal artery: PSV 23.2 cm/s RI: Unabe to compute RAR: Unable to compute. US/US renal doppler IMPRESSION: Nondiagnostic study. Impression dictated by: Edvin Hastings MD,FACS,FSVS 08/11/2024 12:33 PM Dictation Location: [place] [address] Tech: Elis Sotelo Transcribed By: [facility] 08/11/24 1233 Dictated By: Edvin Hastings MD 08/11/24 1232 Signed By: 08/11/24 1233 Normal [facility] echo [facility]horacicon [facility] echo transthoracic [facility] [place] [address] Echocardiogram Signed Patient: Suresh Vallejo MR#: [id number] 0 : 1975 Acct:[id number] Age/Sex: 49 / M ADM Date: 08/10/24 Loc: UL Room: Type: [facility] CLI Attending Dr: Daniel Gloria MD Ordering Provider: Daniel Gloria MD Date of Service: 08/10/2411/27/847 [facility] echo transthoracic: I10 - Essential (primary) hypertension Copies to: MD Ernesto English MD, [facility] Weight: 380 lb Performed By: ALICIA Amador BSA: 2.7 m2 BP: 183/112 mmHg HR: 57 Reason For Study: I10 - Essential (primary) hypertension History: HTN Interpretation Summary Moderate concentric left ventricular hypertrophy. The LV ejection fraction is 55 %. A variety of Doppler measurements indicate normal left ventricular diastolic function. Mild aortic root dilatation. The aortic root is 4.0 cm There is no prior echocardiogram noted for this patient. Procedure/Quality: A two-dimensional transthoracic echocardiogram with color flow, Doppler and injection of contrast agent Definity was performed. The study was technically good in quality. There is no prior echocardiogram noted for this patient. Left Ventricle: Moderate concentric left ventricular hypertrophy. Left ventricular systolic function is normal. The LV ejection fraction is 55 %. A variety of Doppler measurements indicate normal left ventricular diastolic function. Left Atrium: The left atrium appears normal in size. The atrial septum appears normal. Right Atrium: The right atrium appears normal in size. Right Ventricle: The right ventricular size, thickness and function are normal. Aortic Valve: The aortic valve is normal in structure and function. Mitral Valve: The mitral valve is normal. There is trace mitral regurgitation. Tricuspid Valve: The tricuspid valve is normal in structure. Pulmonic Valve: The pulmonic valve is not well seen, but is grossly normal. Arteries: Mild aortic root dilatation. The aortic root is 4.0 cm. Pericardium/Pleura: No pericardial effusion seen. There is no pleural effusion. IVC/Hepatic Veins: The IVC is normal in size with an inspiratory collapse of greater then 50%, suggesting normal right atrial pressure. Miscellaneous: No thrombus, vegetation or mass is seen. Measurements with Normals IVSd: 1.9 cm (0.7-1.1 cm)LVIDd: 5.3 cm (3.7-5.4 cm) LVPWd: 1.7 cm (0.7-1.1 cm)LVIDs: 3.4 cm (2.3-3.6 cm) LA dimension: 3.8 cm (2.3-4.0 cm)Ao root diam: 3.9 cm(2.0-3.6 cm) asc Aorta Diam: 4.0 cm(2.1-3.4cm) Doppler with Normals LV V1 max: 105.7 cm/sec (0.7-1.7m/s)MV E max saleem: 96.0 cm/sec(0.8-1.3m/s) MV A max saleem: 93.1 cm/sec(0.0-0.0m/s) MV E/A: 1.0 (<1.5) MMode/2D Measurements Calculations RVDd: 3.7 cm FS: 35.8 % Ao root area: LVOT diam: 2.8 cm TAPSE: 3.6 cm EDV(Teich): 12.1 cm2 LVOT area: 6.0 cm2 RV S Saleem: 133.6 ml 19.4 cm/sec ESV(Teich): 46.8 ml EF(Teich): 65.0 % __ LVLd ap4: 10.8 cm SV(MOD-sp4): LAV(MOD-sp4): LA A2 area: 22.1 cm2 EDV(MOD-sp4): 157.0 ml 69.1 ml 296.0 ml LAV(MOD-sp2): LA A4 area: 21.6 cm2 LVLs ap4: 9.4 cm 60.9 ml LA length (vol): ESV(MOD-sp4): 5.4 cm 139.0 ml LA vol: 74.9 ml EF(MOD-sp4): 53.0 % LA vol index: 27.3 ml/m2 Doppler Measurements Calculations MV dec time: MV V2 max: E/E' lat: 11.8 MV P1/2t max saleem: 0.31 sec 98.3 cm/sec E/E' med: 10.1 92.9 cm/sec MV max PG: MV P1/2t: 87.4 msec 33.0 mmHg MV V2 mean: MVA(P1/2t): 2.5 cm2 60.2 cm/sec MV dec slope: MV mean P.4 cm/sec2 1.7 mmHg MV V2 VTI: 41.3 cm MVA(VTI): 3.9 cm2 __ Ao V2 max: LV V1 max PG: MR max saelem: RAP systole: 5.0 mmHg 182.3 cm/sec 4.5 mmHg 288.1 cm/sec Ao max PG: LV V1 mean PG: MR max P.3 mmHg 2.5 mmHg 33.2 mmHg Ao mean PG: LV V1 mean: 6.0 mmHg 74.8 cm/sec Ao V2 mean: LV V1 VTI: 113.8 cm/sec 27.2 cm Ao V2 VTI: 45.7 cm MARGAUX(I,D): 3.6 cm2 MARGAUX(V,D): 3.5 cm2 Transcribed By: SCV Performed At: 08/10/24 0938 Signed By: Ernesto Ch MD, [facility] 08/10/24 1041 Normal [facility] A1C with Estimated Average G luon 07-13-2024 Glucose [Mass/Vol] 128 mg/dL Normal [facility] Comment on above: Result Comment: PERF ORMED BY: [place] [address] PATHOLOGIST COMMODITY INDUSTRY ANALYST SEBASTIAN SIMMS M.D. Performed By: #### R SHANA DINERO, ALD #### [facility] , #### A1C WT eA, [facility] #### [facility] [address] A1C with Estimated Average G luOrdered By: Daniel Gloria on 07-13-2024 HbA1c (Bld) [Mass fraction] 6.1 % High 4.3-5.6 [facility] Comment on above: Result Comment: Incr eased risk for diabetes: 5.7 - 6.4 diabetes: >6.4 glycemic control for adults with diabetes: <7.0 Performed By: #### R KASHT UMETRA, ALD #### [facility] , #### A1C WTH eA, BMP #### [facility] [address] [place] [address] Increased risk for d iabetes: 5.7 - 6.4diabetes: >6.4glycemic control for adults with diabetes: <7.0 Aldosteroneon 07-13-2024 Aldosterone 8.6 ng/dL Normal 0.0-30.0 [facility] Comment on above: Result Comment: This test was developed and its performance characteristics determined by [facility]. It has not been cleared or approved by the Food and Drug Administration. Performed at: [facility] [address] [id number] Research Programmer: John Mandel MD, Phone: [phone] PERFORMED BY: [place] [address] PATHOLOGIST COMMODITY INDUSTRY ANALYST SEBASTIAN SIMMS M.D. Performed By: #### R ENACT, UMETRA, ALD #### [facility] , #### A1C WTH eA, BMP #### [facility] [address] [place] [address] Basic Metabolic PanelOrdered By: Daniel Gloria on 07-13-2024 Anion gap [Moles/Vol] 11.8 mmol/L 6.0-15.0 [facility] Comment on above: Performed By: #### R ENACT, UMETRA, ALD #### [facility] , #### A1C WTH eA, BMP #### [facility] [address] [place] [address] Calcium [Mass/Vol] 8.8 mg/dL 8.6-10.3 [facility] Comment on above: Result Comment: PERF ORMED BY: [place] [address] PATHOLOGIST COMMODITY INDU[employer]Y ANALYST SEBASTIAN SIMMS M.D. Performed By: #### R ENACT, UMETRA, ALD #### [facility] , #### A1C WTH eA, BMP #### [facility] [address] [place] [address] [place] Chloride [Moles/Vol] 103 mmol/L 98-107 [facility] Comment on above: Performed By: #### R ROSETTE, UMETRA, ALD #### [facility] , #### A1C WTH eA, BMP #### [facility] [address] CO2 [Moles/Vol] 27.0 mmol/L 21.0-31.0 [facility] Comment on above: Performed By: #### R ENACT, UMETRA, ALD #### [facility] , #### A1C WTH eA, BMP #### [facility] [address] Creatinine [Mass/Vol] 2.53 mg/dL High 0.70-1.30 [facility] Comment on above: Performed By: #### R KASHT, UMETRA, ALD #### [facility] , #### A1C WTH eA, BMP #### [facility] [address] Glucose [Mass/Vol] 119 mg/dL High 70-100 [facility] Comment on above: Result Comment: [place] om Glucose Reference Range is dependent on time and content of last meal. Glucose of more than 200 mg/dL in a nonstressed, ambulatory subject supports the diagnosis of Diabetes Mellitus. ADA recommended reference range Performed By: #### R ENACT, UMETRA, ALD #### [facility] , #### A1C WTH eA, BMP #### [facility] [address] [place] [address] ADA recommended refe rence rangeRandom Glucose Reference Range is dependent on time and content of last meal. Glucose of more than 200 mg/dL in a nonstressed, ambulatory subject supports the diagnosis of Diabetes Mellitus. Potassium [Moles/Vol] 3.8 mmol/L 3.5-5.1 [facility] Comment on above: Performed By: #### R ENACT, UMETRA, ALD #### [facility] , #### A1C WTH eA, BMP #### [facility] [address] Sodium [Moles/Vol] 138 mmol/L 136-145 [facility] Comment on above: Performed By: #### R ENACT, UMETRA, ALD #### [facility] , #### A1C WTH eA, BMP #### [facility] [address] [place] [address] Urea nitrogen [Mass/Vol] 40 mg/dL High 7-25 [facility] Comment on above: Performed By: #### R ENACT, UMETRA, ALD #### [facility] , #### A1C WTH eA, BMP #### [address] Basic Metabolic Panelon 07-02 Estimated GFR 29.915 mL/Min Normal [facility] Comment on above: Performed By: #### R ENACT, UMETRA, ALD #### [facility] , #### A1C WTH eA, BMP #### [facility] [address] [place] [address] Blood estimated average gluc ose determination by estimation from glycated hemoglobinOrdered By: Daniel Gloria on 07-13-2024 Average glucose Estimated from glycated hemoglobin (Bld) [Mass/Vol] Glucose mean value [Mass/volume] in Blood Estimated from glycated hemoglobin [facility] Average glucose Estimated from glycated hemoglobin (Bld) [Mass/Vol] 128 mg/dL [facility] Calcium [Mass/volume] in Ser um or PlasmaOrdered By: Daniel Glorai on 07-13-2024 Calcium [Mass/Vol] Calcium [Mass/volume ] in Serum or Plasma 8.6-10.3 [facility] Carbon dioxide, total [Moles /volume] in Serum or PlasmaOrdered By: Daniel Gloria on 07-13-2024 CO2 [Moles/Vol] Carbon dioxide, tota l [Moles/volume] in Serum or Plasma 21.0-31.0 [facility] Chloride [Moles/volume] in S brenton or PlasmaOrdered By: Daniel Gloria on 07-13-2024 Chloride [Moles/Vol] Chloride [Moles/vol ume] in Serum or Plasma 98-107 [facility] Creatinine [Mass/volume] in Serum or PlasmaOrdered By: Daniel Gloria on 07-13-2024 Creatinine [Mass/Vol] Creatinine [Mass/v olume] in Serum or Plasma High 0.70-1.30 [facility] Glucose [Mass/volume] in Ser um or PlasmaOrdered By: Daniel Gloria on 07-13-2024 Glucose [Mass/Vol] Glucose [Mass/volume ] in Serum or Plasma High 70-100 [facility] Comment on above: ADA recommended refe rence rangeRandom Glucose Reference Range is dependent on time and content of last meal. Glucose of more than 200 mg/dL in a nonstressed, ambulatory subject supports the diagnosis of Diabetes Mellitus. Hemoglobin A1c/Hemoglobin.to frandy in BloodOrdered By: Daniel Gloria on 07-13-2024 HbA1c (Bld) [Mass fraction] Hemoglobin A1c percentage High 4.3-5.6 [facility] Comment on above: Increased risk for d iabetes: 5.7 - 6.4diabetes: >6.4glycemic control for adults with diabetes: <7.0 Metanephrine Urine Randomon 07-13-2024 Creatinine, Random Ur 73.3 mg/dL Normal Not Estab. [facility] Comment on above: Performed By: #### R SHANA DINERO ALD #### [facility] , #### A1C WT eA, BMP #### [facility] [address] Metanephrine Random Urine 49 Normal Undefined [facility] Comment on above: Result Comment: This test was developed and its performance characteristics determined by [facility]. It has not been cleared or approved by the Food and Drug Administration. Performed By: #### R SHANA DINERO ALD #### [facility] , #### A1C WTH eA, BMP #### [address] Metanephrine/Creatinin e Ratio 0.4 Normal 0.0-1.0 [facility] Comment on above: Result Comment: Resu lt Units: ug/mg Creat Performed at: [address] [id number] Research Programmer: John Mandel MD, Phone: [phone] Performed By: #### R ENACT, UMETRA, ALD #### [facility] , #### A1C WTH eA, BMP #### [address] Normetanephrine Random Urine 199 Normal Undefined [facility] Comment on above: Result Comment: This test was developed and its performance characteristics determined by [facility]. It has not been cleared or approved by the Food and Drug Administration. PERFORMED BY: [place] [address] PATHOLOGIST [employer]ITY INDUSTRY ANALYST SEBASTIAN SIMMS M.D. Performed By: #### R ENACT, UMETRA, ALD #### [facility] , #### A1C WTH eA, BMP #### [address] Metanephrines [Mass/volume] in 24 hour UrineOrdered By: Daniel Gloria on 07-13-2024 Metanephrines (24H U) [Mass/Vol] Metanephrines [Mass/volume] in 24 hour Urine Undefined [facility] Comment on above: This test was develo ped and its performance characteristicsdetermined by [facility]. It has not been cleared orapproved by the Food and Drug Administration. Metanephrines (24H U) [Mass/Vol] 49 ug/L Undefined [facility] Comment on above: This test was develo ped and its performance characteristicsdetermined by [facility]. It has not been cleared orapproved by the Food and Drug Administration. Metanephrines/Creatinine [Ma ss Ratio] in UrineOrdered By: Daniel Gloria on 07-13-2024 Metanephrines/Creatini ne (U) [Mass ratio] Metanephrines/Creatinine [Mass Ratio] in Urine 0.0-1.0 [facility] Comment on above: Result Units: ug/mg CreatPerformed at: [facility] - [facility] [address] [id number] Director: John Mandel MD, Phone: [phone] Metanephrines/Creatini ne (U) [Mass ratio] 0.4 0.0-1.0 [facility] Comment on above: Result Units: ug/mg CreatPerformed at: [facility] - [facility] [address] [id number] Director: John Mandel MD, Phone: [phone] No Panel InformationOrdered By: Daniel Gloria on 07-13-2024 Estimated GFR (CKD-EPI) 29.915 mL/Min [facility] Creatinine Clearance (Chem N/A [facility] Normetanephrine [Mass/volume ] in 24 hour UrineOrdered By: Daniel Gloria on 07-13-2024 Normetanephrine (24H U) [Mass/Vol] Normetanephrine [Mass/volume] in 24 hour Urine Undefined [facility] Comment on above: This test was develo ped and its performance characteristicsdetermined by [facility]. It has not been cleared orapproved by the Food and Drug Administration. Normetanephrine (24H U) [Mass/Vol] 199 ug/L Undefined [facility] Comment on above: This test was develo ped and its performance characteristicsdetermined by [facility]. It has not been cleared orapproved by the Food and Drug Administration. Potassium [Moles/volume] in Serum or PlasmaOrdered By: Daniel Gloria on 07-13-2024 Potassium [Moles/Vol] Potassium [Moles/v olume] in Serum or Plasma 3.5-5.1 [facility] Renin Activityon 07-13-2024 Renin Activity 0.247 Normal 0.167-5.38 0 [facility] Comment on above: Result Comment: This test was developed and its performance characteristics determined by [facility]. It has not been cleared or approved by the Food and Drug Administration. Performed at: [address] [id number] Research Programmer: John Mandel MD, Phone: [phone] PERFORMED BY: [place] [address] PATHOLOGIST COMMODITY INDU[employer]Y ANALYST SEBASTIAN SIMMS M.D. Performed By: #### R ENACT, UMETRA, ALD #### [facility] , #### A1C WTH eA, BMP #### [address] Renin activityOrdered By: Trino Gloria on 07-13-2024 Renin (P) [Catalytic activity/Vol] Renin activity 0.167-5.38 0 [facility] Comment on above: This test was develo ped and its performance characteristicsdetermined by [facility]. It has not been cleared orapproved by the Food and Drug Administration.Performed at: [address] [id number] Director: John Mandel MD, Phone: [phone] Renin (P) [Catalytic activity/Vol] 0.247 ng/mL/hr 0.167-5.38 0 [facility] Comment on above: This test was develo ped and its performance characteristicsdetermined by [facility]. It has not been cleared orapproved by the Food and Drug Administration.Performed at: [address] [id number] Director: John Mandel MD, Phone: [phone] Serum or plasma aldosterone measurement (mass/volume)Ordered By: Daniel Gloria on 07-13-2024 Aldosterone [Mass/Vol] Serum or plasma a ldosterone measurement (mass/volume) 0.0-30.0 [facility] Comment on above: This test was develo ped and its performance characteristicsdetermined by [facility]. It has not been cleared orapproved by the Food and Drug Administration.Performed at: [address] [id number] Director: John Mandel MD, Phone: [phone] Aldosterone [Mass/Vol] 8.6 ng/dL 0.0-30.0 [facility] Comment on above: This test was develo ped and its performance characteristicsdetermined by [facility]. It has not been cleared orapproved by the Food and Drug Administration.Performed at: [facility] [address] [id number] Director: John Mandel MD, Phone: [phone] Serum or plasma anion gap de terminationOrdered By: Daniel Gloria on 07-13-2024 Anion gap [Moles/Vol] Serum or plasma an ion gap determination 6.0-15.0 [facility] Sodium [Moles/volume] in Ser um or PlasmaOrdered By: Daniel Gloria on 07-13-2024 Sodium [Moles/Vol] Sodium [Moles/volume ] in Serum or Plasma 136-145 [facility] Urea nitrogen [Mass/volume] in Serum or PlasmaOrdered By: Daniel Gloria on 07-13-2024 Urea nitrogen [Mass/Vol] Urea nitrogen [Mass/volume] in Serum or Plasma High 7-25 [facility] Urine creatinine measurement (mass/volume)Ordered By: Daniel Gloria on 07-13-2024 Creatinine (U) [Mass/Vol] Creatinine [Mass/volume] in Urine Not Estab. [facility] Creatinine (U) [Mass/Vol] 73.3 mg/dL Not Estab. [facility] FPG ECG *CARDIOLOGY ONLY*on 07-08-2024 FPG ECG *CARDIOLOGY ONLY* [facility] [place] [address] [place] [address] Electrocardiograph Report Signed Patient: Suresh Vallejo MR#: [id number] 0 : 1975 Acct:[id number] Age/Sex: 49 / M ADM Date: 07/08/24 Loc: EKGCARDIO Room: Type: [facility] Attending Dr: Daniel Gloria MD Ordering Provider: Daniel Gloria MD Date of Service: 07/08/2409/26/1511 ECG/FPG ECG *CARDIOLOGY ONLY*: I10 - Essential (primary) hypertension Copies to: Test Reason : Blood Pressure : */* mmHG Vent. Rate : 58 BPM Atrial Rate : 58 BPM P-R Int : 216 ms QRS Dur : 112 ms QT Int : 412 ms P-R-T Axes : 14 -28 57 degrees QTcB Int : 404 ms Sinus bradycardia with 1st degree AV block Minimal voltage criteria for LVH, may be normal variant ( Matti product ) Borderline ECG No previous ECGs available Confirmed by Daniel Gloria ([id number]) on 07/08/2024 4:29:16 PM Referred By: Electronically Signed By: Daniel Gloria Transcribed By: MUS Signed By Daniel Gloria MD 07/08/24 4011 Normal [facility] Basophils Auto (Bld) [#/Vol] on 02-09-2024 Basophils (Bld) [#/Vol] Automated basophil count 0.0-0.1 [facility] Basophils/100 WBC Auto (Bld) on 02-09-2024 Basophils/100 WBC (Bld) Automated basophil % 0.2-2.0 [facility] Eosinophils/100 WBC Auto (Bl d)on 02-09-2024 Eosinophils/100 WBC (Bld) Automated eosinophil % 0.9-7.0 [facility] Erythrocyte distribution wid th Auto (RBC) [Ratio]on 02-09-2024 Erythrocyte distribution width (RBC) [Ratio] Erythrocyte distribution width [Ratio] by Automated count 11.0-15.0 [facility] Estimated glomerular filtrat ion rate (GFR) non- Americanon 02-09-2024 GFR/1.73 sq M.predicted among non-blacks MDRD (S/P/Bld) [Vol rate/Area] Estimated glomerular filtration rate (GFR) non- Low >=60 mL/min/1.7 3m 2 [facility] Hematocrit Auto (Bld) [Volum e fraction]on 02-09-2024 Hematocrit (Bld) [Volume fraction] Hematocrit [Volume Fraction] of Blood by Automated count Low 42.0-54.0 [facility] Hemoglobin [Mass/volume] in Bloodon 02-09-2024 Hemoglobin (Bld) [Mass/Vol] Hemoglobin [Mass/volume] in Blood Low 14.0-18.0 [facility] Laboratory - Chemistry and C hemistry - challengeon 02-09-2024 Calcium [Mass/Vol] 8.6 mg/dL 8.5-10.1 [facility] Chloride [Moles/Vol] 109 mmol/L High 98-107 [facility] CO2 [Moles/Vol] 24.4 mmol/L 21.0-32.0 [facility] Creatinine [Mass/Vol] 2.50 mg/dL High 0.70-1.30 [facility] GFR/1.73 sq M.predicted MDRD (S/P/Bld) [Vol rate/Area] 33 mL/min/{1.73_m2} Low >=60 mL/min/1.7 3m 2 [facility] Glucose [Mass/Vol] 81 mg/dL 74-106 [facility] Natriuretic peptide B (Bld) [Mass/Vol] 1600.0 pg/mL Critically high <=900.0 [facility] Comment on above: RESULTS CALLED TO LAZ VELASQUEZ RN @BY [place] [phone] Potassium [Moles/Vol] 4.3 mmol/L 3.5-5.1 [facility] Sodium [Moles/Vol] 144 mmol/L 136-145 [facility] Urea nitrogen [Mass/Vol] 38.0 mg/dL High 7.0-18.0 [facility] Urea nitrogen/Creatinine [Mass ratio] 15.2 mg/mg [facility] Laboratory - Hematology and Cell countson 02-09-2024 Immature granulocytes/100 WBC (Bld) 0.1 % 0.0-0.5 [facility] Leukocytes [#/volume] correc miguel for nucleated erythrocytes in Blood by Automated counon 02-09-2024 WBC corrected for nucl RBC Auto (Bld) [#/Vol] Leukocytes [#/volume] corrected for nucleated erythrocytes in Blood by Automated coun 4.0-11.0 [facility] Lymphocytes Auto (Bld) [#/Vo l]on 02-09-2024 Lymphocytes (Bld) [#/Vol] Lymphocytes [#/volume] in Blood by Automated count 1.2-3.8 [facility] Lymphocytes/100 WBC Auto (Bl d)on 02-09-2024 Lymphocytes/100 WBC (Bld) Lymphocytes/100 leukocytes in Blood by Automated count 20.5-60.0 [facility] MCH Auto (RBC) [Entitic mass ]on 02-09-2024 MCH (RBC) [Entitic mass] MCH [Entitic mass] by Automated count 25.9-34.0 [facility] MCHC Auto (RBC) [Mass/Vol]on 02-09-2024 MCHC (RBC) [Mass/Vol] MCHC [Mass/volume] by Automated count 29.9-35.2 [facility] MCV Auto (RBC) [Entitic vol] on 02-09-2024 MCV (RBC) [Entitic vol] MCV [Entitic volume] by Automated count 80.0-94.0 [facility] Monocytes Auto (Bld) [#/Vol] on 02-09-2024 Monocytes (Bld) [#/Vol] Automated blood monocyte count 0.3-0.8 [facility] Monocytes/100 WBC Auto (Bld) on 02-09-2024 Monocytes/100 WBC (Bld) Automated monocyte % 1.7-12.0 [facility] Neutrophils Auto (Bld) [#/Vo l]on 02-09-2024 Neutrophils (Bld) [#/Vol] Neutrophils [#/volume] in Blood by Automated count 1.4-6.5 [facility] Neutrophils/100 WBC Auto (Bl d)on 02-09-2024 Neutrophils/100 WBC (Bld) Automated neutrophil % 43.0-75.0 [facility] No Panel Informationon 02-08 Eosinophils # (Auto) 0.4 10 3/uL 0.0-0.7 [facility] Immature Granulocyte # (Auto) 0.01 10 3/uL 0.00-0.03 [facility] Platelet mean volume Auto (B ld) [Entitic vol]on 02-09-2024 Platelet mean volume (Bld) [Entitic vol] Platelet mean volume [Entitic volume] in Blood by Automated count 9.5-13.5 [facility] Platelets Auto (Bld) [#/Vol] on 02-09-2024 Platelets (Bld) [#/Vol] Platelets [#/volume] in Blood by Automated count 150-450 [facility] RBC Auto (Bld) [#/Vol]on RBC (Bld) [#/Vol] Erythrocytes [#/volu me] in Blood by Automated count Low 4.70-6.10 [facility] Serum or plasma anion gap de terminationon 02-09-2024 Anion gap [Moles/Vol] Serum or plasma an ion gap determination [facility] Activated partial thrombopla stin time (aPTT) in platelet poor plasma by coagulation aon 02-08-2024 aPTT Coag (PPP) [Time] Activated partial thromboplastin time (aPTT) in platelet poor plasma by coagulation a 22.3-36.2 [facility] Basophils Auto (Bld) [#/Vol] on 02-08-2024 Basophils (Bld) [#/Vol] Automated basophil count 0.0-0.1 [facility] Basophils/100 WBC Auto (Bld) on 02-08-2024 Basophils/100 WBC (Bld) Automated basophil % 0.2-2.0 [facility] Eosinophils/100 WBC Auto (Bl d)on 02-08-2024 Eosinophils/100 WBC (Bld) Automated eosinophil % 0.9-7.0 [facility] Erythrocyte distribution wid th Auto (RBC) [Ratio]on 02-08-2024 Erythrocyte distribution width (RBC) [Ratio] Erythrocyte distribution width [Ratio] by Automated count 11.0-15.0 [facility] Estimated glomerular filtrat ion rate (GFR) non- Americanon 02-08-2024 GFR/1.73 sq M.predicted among non-blacks MDRD (S/P/Bld) [Vol rate/Area] Estimated glomerular filtration rate (GFR) non- Low >=60 mL/min/1.7 3m 2 [facility] Globulin Calc (S) [Mass/Vol] on 02-08-2024 Globulin (S) [Mass/Vol] Serum globulin measurement by calculation (mass/volume) [facility] Hematocrit Auto (Bld) [Volum e fraction]on 02-08-2024 Hematocrit (Bld) [Volume fraction] Hematocrit [Volume Fraction] of Blood by Automated count Low 42.0-54.0 [facility] Hemoglobin [Mass/volume] in Bloodon 02-08-2024 Hemoglobin (Bld) [Mass/Vol] Hemoglobin [Mass/volume] in Blood Low 14.0-18.0 [facility] INR in Platelet poor plasma by Coagulation assayon 02-08-2024 INR Coag (PPP) [Relative time] INR in Platelet poor plasma by Coagulation assay [facility] Comment on above: DESIRED INR:2.0-3.0 CONDITIONS NOT LISTED BELOW2.5-3.5 FOR PROSTHETIC HEART VALVE REPLACEMENT2.5-3.5 RECURRENT THROMBOSIS Laboratory - Chemistry and C hemistry - challengeon 02-08-2024 Albumin [Mass/Vol] 2.6 g/dL Low 3.4-5.0 [facility] ALP [Catalytic activity/Vol] 98 U/L 46-116 [facility] ALT [Catalytic activity/Vol] 26 U/L 16-63 [facility] AST [Catalytic activity/Vol] 19 U/L 15-37 [facility] Bilirubin [Mass/Vol] 0.6 mg/dL 0.2-1.0 [facility] Calcium [Mass/Vol] 8.8 mg/dL 8.5-10.1 [facility] Chloride [Moles/Vol] 109 mmol/L High 98-107 [facility] CO2 [Moles/Vol] 23.6 mmol/L 21.0-32.0 [facility] Creatinine [Mass/Vol] 2.55 mg/dL High 0.70-1.30 [facility] GFR/1.73 sq M.predicted MDRD (S/P/Bld) [Vol rate/Area] 32 mL/min/{1.73_m2} Low >=60 mL/min/1.7 3m 2 [facility] Glucose [Mass/Vol] 82 mg/dL 74-106 [facility] Magnesium [Mass/Vol] 1.9 mg/dL 1.8-2.4 [facility] Natriuretic peptide B (Bld) [Mass/Vol] 4053.0 pg/mL Critically high <=900.0 [facility] Comment on above: RESULTS CALLED TO DONALDO SANTO RN @BY Kim Madrid at 0731 Potassium [Moles/Vol] 3.9 mmol/L 3.5-5.1 [facility] Protein [Mass/Vol] 7.1 g/dL 6.4-8.2 [facility] Sodium [Moles/Vol] 143 mmol/L 136-145 [facility] T4 [Mass/Vol] 6.90 ug/dL 4.50-12.10 [facility] TSH Qn 2.921 m[IU]/L 0.358-3.74 0 [facility] Urea nitrogen [Mass/Vol] 36.0 mg/dL High 7.0-18.0 [facility] Urea nitrogen/Creatinine [Mass ratio] 14.1 mg/mg [facility] Laboratory - Hematology and Cell countson 02-08-2024 Immature granulocytes/100 WBC (Bld) 0.1 % 0.0-0.5 [facility] Leukocytes [#/volume] correc miguel for nucleated erythrocytes in Blood by Automated counon 02-08-2024 WBC corrected for nucl RBC Auto (Bld) [#/Vol] Leukocytes [#/volume] corrected for nucleated erythrocytes in Blood by Automated coun 4.0-11.0 [facility] Lymphocytes Auto (Bld) [#/Vo l]on 02-08-2024 Lymphocytes (Bld) [#/Vol] Lymphocytes [#/volume] in Blood by Automated count 1.2-3.8 [facility] Lymphocytes/100 WBC Auto (Bl d)on 02-08-2024 Lymphocytes/100 WBC (Bld) Lymphocytes/100 leukocytes in Blood by Automated count 20.5-60.0 [facility] MCH Auto (RBC) [Entitic mass ]on 02-08-2024 MCH (RBC) [Entitic mass] MCH [Entitic mass] by Automated count 25.9-34.0 [facility] MCHC Auto (RBC) [Mass/Vol]on 02-08-2024 MCHC (RBC) [Mass/Vol] MCHC [Mass/volume] by Automated count 29.9-35.2 [facility] MCV Auto (RBC) [Entitic vol] on 02-08-2024 MCV (RBC) [Entitic vol] MCV [Entitic volume] by Automated count 80.0-94.0 [facility] Monocytes Auto (Bld) [#/Vol] on 02-08-2024 Monocytes (Bld) [#/Vol] Automated blood monocyte count 0.3-0.8 [facility] Monocytes/100 WBC Auto (Bld) on 02-08-2024 Monocytes/100 WBC (Bld) Automated monocyte % 1.7-12.0 [facility] Neutrophils Auto (Bld) [#/Vo l]on 02-08-2024 Neutrophils (Bld) [#/Vol] Neutrophils [#/volume] in Blood by Automated count 1.4-6.5 [facility] Neutrophils/100 WBC Auto (Bl d)on 02-08-2024 Neutrophils/100 WBC (Bld) Automated neutrophil % 43.0-75.0 [facility] No Panel Informationon 02-07 Eosinophils # (Auto) 0.3 10 3/uL 0.0-0.7 [facility] Immature Granulocyte # (Auto) 0.01 10 3/uL 0.00-0.03 [facility] Phosphorus Level 4.0 mg/dL 2.6-4.7 [facility] Platelet mean volume Auto (B ld) [Entitic vol]on 02-08-2024 Platelet mean volume (Bld) [Entitic vol] Platelet mean volume [Entitic volume] in Blood by Automated count 9.5-13.5 [facility] Platelets Auto (Bld) [#/Vol] on 02-08-2024 Platelets (Bld) [#/Vol] Platelets [#/volume] in Blood by Automated count 150-450 [facility] Prothrombin time (PT)on PT Coag (PPP) [Time] Prothrombin time (PT) 9.0- 11.6 [facility] RBC Auto (Bld) [#/Vol]on RBC (Bld) [#/Vol] Erythrocytes [#/volu me] in Blood by Automated count Low 4.70-6.10 [facility] Serum or plasma albumin/glob ulin mass ratioon 02-08-2024 Albumin/Globulin [Mass ratio] Serum or plasma albumin/globulin mass ratio [facility] Serum or plasma anion gap de terminationon 02-08-2024 Anion gap [Moles/Vol] Serum or plasma an ion gap determination [facility] Buprenorphine [Presence] in Urineon 02-07-2024 Buprenorphine Ql (U) Buprenorphine [Pres ence] in Urine NEGATIVE [facility] Comment on above: DRUG CLASS TEST SYST EM CUT-OFF CONCENTRATIONS ARE ASFOLLOWS:AMP (Amphetamine): 500 ng/mLBAR (Barbiturates): 200 ng/mLBZO (Benzodiazepines): 150 ng/mLBUP (Buprenorphine): 10 ng/mLCOC (Cocaine): 150 ng/mLmAMP (Methamphetamine): 500 ng/mLMTD (Methadone): 200 ng/mLOPI (Opiates): 100 ng/mLOXY (Oxycodone): 100 ng/mLPCP (Phencyclidine): 25 ng/mLTHC (Cannabinoids): 50 ng/mLTCA (Trycyclic Antidepressants): 300 ng/mL Laboratory - Chemistry and C hemistry - challengeon 02-07-2024 Bilirubin Ql (U) Negative NEGATIVE [facility] Glucose (U) [Mass/Vol] Negative NEGATIVE [facility] Ketones Ql (U) Negative NEGATIVE [facility] pH (U) 6.5 [pH] 5.0-9.0 [facility] Specific gravity (U) [Rel density] 1.015 1.005-1.02 5 [facility] Urobilinogen Qn (U) 0.2 {Abiola'U}/dL 0.2-1.0 [facility] Magnesium [Mass/Vol] 2.1 mg/dL 1.8-2.4 [facility] Natriuretic peptide B (Bld) [Mass/Vol] 3918.0 pg/mL Critically high <=900.0 [facility] Comment on above: RESULTS CALLED TO RICHIE Tang @BY Rogelio [place] 1934 Laboratory - Drug toxicology on 02-07-2024 Amphetamines Ql (U) Negative NEGATIVE [facility] Benzodiazepines Ql (U) Negative NEGATIVE [facility] Cocaine Ql (U) Negative NEGATIVE [facility] Opiates Ql (U) Negative NEGATIVE [facility] Phencyclidine Ql (U) Negative NEGATIVE [facility] Laboratory - Specimen inform ationon 02-07-2024 Appearance (U) CLEAR CLEAR [facility] Color (U) LT. YELLOW YELLOW [facility] Laboratory - Urinalysison Leukocyte esterase Test strip Ql (U) Negative NEGATIVE [facility] Mucus Ql (Urine sed) NONE SEEN NONE SEEN [facility] Nitrite Ql (U) Negative NEGATIVE [facility] Protein Ql (U) >=300 mg/dL Abnormal NEG/TRACE [facility] Methadone [Presence] in Urin e by Screen methodon 02-07-2024 Methadone Screen Ql (U) Methadone [Presence] in Urine by Screen method NEGATIVE [facility] No Panel Informationon 02-06 Urine Bacteria TRACE #/HPF Abnormal NONE SEEN [facility] Urine Barbiturates Screen Negative NEGATIVE [facility] Urine Marijuana (THC) Screen Negative NEGATIVE [facility] Urine Methamphetamines Screen Negative NEGATIVE [facility] Urine Occult Blood SMALL Abnormal NEGATIVE [facility] Urine Other Casts NONE SEEN #/LPF NONE SEEN [facility] Urine Other Crystals None Seen #/HPF None Seen [facility] Urine RBC 0-2 #/HPF 0-2 [facility] Urine Squamous Epithelial Cells NONE SEEN #/LPF NONE/RARE [facility] Urine WBC 0-2 #/HPF Abnormal NONE SEEN [facility] Troponin I High Sensitivity 68.6 pg/mL 4.0-76.1 [facility] Comment on above: CUT-OFF POINTS HAVE BEEN ESTABLISHED BASED ON THE FOURTHUNIVERSAL DEFINITION OF MYOCARDIAL INFARCTION. THE UPPERREFERENCE LIMIT (URL) OF TROPONIN, DEFINED THE 99THPERCENTILE OF cTnI DISTRIBUTION IN A REFERENCE POPULATION,HAS BEEN CONFIRMED THE DECISION THRESHOLD FOR MIDIAGNOSIS.99TH PERCENTILE = 76.2 PG/MLNOTE: HIGH-SENSITIVITY TROPONIN ASSAY IS NOT INTENDED TO BEUSED IN ISOLATION BUT SHOULD BE INTERPRETED IN CONJUNCTIONWITH OTHER DIAGNOSTIC AND CLINICAL INFORMATION. Urine tricyclic antidepressa nt measurementon 02-07-2024 Tricyclic antidepressants (U) [Mass/Vol] Urine tricyclic antidepressant measurement NEGATIVE [facility] oxyCODONE+oxyMORphone [Prese nce] in Urine by Screen methodon 02-07-2024 oxyCODONE+oxyMORphone Screen Ql (U) oxyCODONE+oxyMORphone [Presence] in Urine by Screen method NEGATIVE [facility] US venous duplex LE BIon US venous duplex LE BI [facility] [place] [address] [place] [address] Ultrasound Report Signed Patient: Suresh Vallejo MR#: [id number] 0 : 1975 Acct:[id number] Age/Sex: 49 / M ADM Date: 02/05/24 Loc: Room: Type: [facility] Attending Dr: Edvin Hastings MD Ordering Provider: Edvin Hastings MD Date of Service: 02/05/24 US/US venous duplex LE BI: I83.813 - Varicose veins of bilateral lower extremities w... Copies to: Edvin Hastings MD BILATERAL LOWER EXTREMITY VENOUS DUPLEX INDICATION: Symptomatic varicose veins. PROCEDURE: Color-flow duplex scanning is used to interrogate the deep venous system of the right and left lower extremities. The common femoral vein, femoral vein and popliteal vein show good compressibility with normal proximal and distal augmentation. The calf veins are compressible. US/US venous duplex LE BI IMPRESSION: NO EVIDENCE FOR DEEP VEIN THROMBOSIS OR PROXIMAL SUPERFICIAL THROMBOPHLEBITIS IN THE RIGHT OR LEFT LOWER EXTREMITY. Continuous flow and severe reflux was identified in the bilateral common femoral vein saphenofemoral junction and greater saphenous veins and femoral vein. Severe reflux and continuous flow was also identified in the left lesser saphenous vein. The greater saphenous vein was patent from the groin to the ankle, bilaterally and was massively enlarged, bilaterally. Impression dictated by: Edvin Hastings MD02/06/2024 4:14 PM Dictation Location[facility] Tech: Oksana Lucia Transcribed By: LAKSHMI 02/06/24 1614 Dictated By: Edvin Hastings MD 02/06/24 1613 Signed By: 02/06/24 161 Normal [facility] US Lower Extremity Venous Du plex Bilateralon 01-13-2024 US Lower Extremity Venous Duplex Bilateral Exam Date/Time: 01/08/2024 15:51 EST Reason for Exam: I83.813 Report IMPRESSION: NO DVT OF EITHER LOWER EXTREMITY IDENTIFIED. EXAM: US Lower Extremity Venous Duplex Bilateral DATE: 01/08/2024 3:15 PM CLINICAL HISTORY: I83.813. COMPARISON: 12/25/2023. TECHNIQUE: Diamond scale, compression, color and waveform Doppler analysis of the deep and superficial venous systems of both lower extremities was performed with augmentation. Spectral Doppler waveforms were evaluated for spontaneity, phasicity and appropriate augmentation. FINDINGS: There is no venous thrombus, abnormal masses, organized fluid collections, or other findings of concern identified within either lower extremity. Ordering Provider: , FINAL REPORT Dictated: 01/13/2024 1:50 pm Kenn Crow MD Signed (Electronic Signature): 01/13/2024 1:50 pm Signed by: Kenn Crow MD Transcribed by: MARTINEZ Technologist: AARON Kimbrough [facility] US Lower Extremity Venous Du plex Lefton 12-26-2023 US Lower Extremity Venous Duplex Left Exam Date/Time: 12/25/2023 20:30 EDT Reason for Exam: LEFT LEG PAIN Report IMPRESSION: NO LEFT LOWER EXTREMITY DVT IDENTIFIED. APPROXIMATELY 5.4 CM LEFT POPLITEAL CYST. EXAM: US Lower Extremity Venous Duplex Left DATE: 12/25/2023 7:49 PM CLINICAL HISTORY: LEFT LEG PAIN. COMPARISON: None available. TECHNIQUE: Grayscale, compression, color and waveform Doppler analysis of the left lower extremity venous systems was performed with augmentation. Spectral Doppler waveforms were evaluated for spontaneity, phasicity and appropriate augmentation. FINDINGS: An approximately 5.4 x 2.9 x 2.3 cm left popliteal cyst is most consistent with a Araujo's cyst. Ill-defined edema is present within the superficial calf, with nonvisualization of the calf veins. There is no deep or superficial venous thrombosis or other findings of concern identified within the left lower extremity. No DVT present within the visualized right common femoral vein. Ordering Provider: JUVENCIO LEE FINAL REPORT Dictated: 12/26/2023 11:00 am Kenn Crow MD Signed (Electronic Signature): 12/26/2023 11:00 am Signed by: Kenn Crow MD Transcribed by: MARTINEZ Technologist: AARON Kimbrough [facility] CHEMISTRYOrdered By: SYSTEM SYSTEM on 10-10-2022 25-hydroxyvitamin D3 [Mass/Vol] 13.6 ng/mL Low 30.0 - 100.0 ng/mL [facility] Albumin [Mass/Vol] 3.8 g/dL Normal 3.3 - 5.0 gm/dL [facility] Albumin/Globulin [Mass ratio] 0.9 {ratio} Low 1.1 - 2.2 [facility] ALP [Catalytic activity/Vol] 78 [iU]/d Normal 21 - 98 Int._Unit/ L [facility] ALT No additional P-5'-P [Catalytic activity/Vol] 32 [iU]/d Normal 6 - 46 Int._Unit/ L [facility] Anion gap [Moles/Vol] 11 mmol/L Normal 6 - 16 mEq/L [facility] AST [Catalytic activity/Vol] 23 [iU]/d Normal 5 - 43 Int._Unit/ L [facility] Bilirubin [Mass/Vol] 0.5 mg/dL Normal 0.0 - 1 .1 mg/dL [facility] Calcium [Mass/Vol] 9.2 mg/dL Normal 8.9 - 11. 1 mg/dL [facility] Chloride [Moles/Vol] 103 mmol/L Normal 101 - 1 11 mmol/L [facility] Cholesterol [Mass/Vol] 165 mg/dL Normal 120 - 200 mg/dL [facility] Cholesterol in HDL [Mass/Vol] 46 mg/dL Invalid Interpretation Code [facility] Cholesterol in LDL [Mass/Vol] 96 mg/dL Normal <=129mg/dL [facility] Cholesterol in VLDL [Mass/Vol] 14 mg/dL Normal 7 - 40 mg/dL [facility] CO2 [Moles/Vol] 28 mmol/L Normal 21 - 31 mmol/L [facility] Cobalamin (Vitamin B12) [Mass/Vol] 279 pg/mL Normal 50 - 1500 pg/mL [facility] Creatinine [Mass/Vol] 1.7 mg/dL High 0.5 - 1.3 mg/dL [facility] GFR/1.73 sq M.predicted among non-blacks MDRD (S/P/Bld) [Vol rate/Area] 49 mL/min/1.73 m2 Low >=59mL/min /1.73 m2 [facility] Chem S Globulin (S) [Mass/Vol] 4.4 g/dL High 1.4 - 4.0 gm/dL [facility] Glucose [Mass/Vol] 90 mg/dL Normal 55 - 199 mg/dL [facility] Potassium [Moles/Vol] 3.3 mmol/L Low 3.5 - 5.3 mmol/L [facility] Protein [Mass/Vol] 8.2 g/dL High 6.0 - 7.8 gm/dL [facility] Sodium [Moles/Vol] 139 mmol/L Normal 135 - 145 mmol/L [facility] Triglyceride [Mass/Vol] 71 mg/dL Normal <=149mg/dL [facility] TSH Qn 1.71 m[IU]/L Normal 0.34 - 5.60 mcIU/mL [facility] Urea nitrogen [Mass/Vol] 16 mg/dL Normal 5 - 21 mg/dL [facility] Urea nitrogen/Creatinine [Mass ratio] 9 mg/mg Low 10 - 20 [facility] HEMATOLOGYOrdered By: SYSTEM SYSTEM on 10-10-2022 Basophils/100 WBC (Bld) 1.1 % Normal 0.0 - 2.0 % [facility]eAutoSS Basophils/Leukocytes Auto (Bld) [Pure # fraction] 0.1 E9/L Normal 0.0 - 0.2 E9/L [facility] Eosinophils/100 WBC (Bld) 1.5 % Normal 0.0 - 8.0 % [facility] Eosinophils/Leukocytes Auto (Bld) [Pure # fraction] 0.1 E9/L Normal 0.0 - 0.5 E9/L [facility] Lymphocytes/100 WBC (Bld) 26.6 % Normal 14.0 - 50.0 % [facility] Lymphocytes/Leukocytes Auto (Bld) [Pure # fraction] 2.4 E9/L Normal 1.0 - 4.0 E9/L [facility]AutoSS Monocytes/100 WBC (Bld) 5.8 % Normal 4.0 - 14.0 % [facility]eAutoSS Monocytes/Leukocytes Auto (Bld) [Pure # fraction] 0.5 E9/L Normal 0.2 - 1.0 E9/L [facility] Neutrophils/100 WBC (Bld) 65.0 % Normal 36.0 - 75.0 % [facility] Neutrophils/Leukocytes Auto (Bld) [Pure # fraction] 5.8 E9/L Normal 2.0 - 7.5 E9/L [facility] HEMATOLOGYOrdered By: Mamadou Guevara on 10-10-2022 Erythrocyte distribution width (RBC) [Ratio] 14.3 % High 10.9 - 14.2 % [facility] Hematocrit (Bld) [Volume fraction] 44.9 % Normal 37.7 - 49.0 % [facility] Hemoglobin (Bld) [Mass/Vol] 15.1 g/dL Normal 13.5 - 17.5 gm/dL [facility] MCH (RBC) [Entitic mass] 28.7 pg Normal 27.0 - 34.0 pg [facility] MCHC (RBC) [Mass/Vol] 33.7 g/dL Normal 31.4 - 36.0 gm/dL [facility] MCV (RBC) [Entitic vol] 85.2 fL Normal 80.0 - 100.0 fL [facility] Platelet mean volume (Bld) [Entitic vol] 8.6 fL Normal 6.4 - 10.8 fL [facility] Platelets (Bld) [#/Vol] 316.0 E9/L Normal 150.0 - 500.0 E9/L [facility] RBC (Bld) [#/Vol] 5.3 E12/L Normal 4.3 - 5.9 E12/L [facility] WBC corrected for nucl RBC Auto (Bld) [#/Vol] 8.9 E9/L Normal 4.0 - 11.0 E9/L [facility] CBC AUTO DIFFon 02-07-2021 BASO # 0.1 103/ul Normal 0.0-0.1 [facility] Comment on above: Performed By: #### C BC #### [facility] [address] [address] [address] Aubrey Tatum Basophils/100 WBC (Bld) 0.8 % Normal 0.2-2.0 [facility] Comment on above: Performed By: #### C BC #### [facility] [address] [place] [address] Dr. Aubrey Tatum EO # 0.1 103/ul Normal 0.0-0.7 [facility] Comment on above: Performed By: #### C BC #### [facility] [address] [place] [address] Dr. Aubrey Tatum Eosinophils/100 WBC (Bld) 1.3 % Normal 0.9-7.0 [facility] Comment on above: Performed By: #### C BC #### [facility] [address] [place] [address] Dr. Aubrey Tatum Erythrocyte distribution width (RBC) [Ratio] 13.6 % Normal 11.0-15.0 [facility] Comment on above: Performed By: #### C BC #### [facility] [address] [place] [address] Dr. Aubrey Tatum Hematocrit (Bld) [Volume fraction] 41.0 % Critically low 42.0-54.0 [facility] Comment on above: Performed By: #### C BC #### [facility] [address] [place] [address] Dr. Aubrey Tatum Hemoglobin (Bld) [Mass/Vol] 13.0 g/dL Critically low 14.0-18.0 [facility] Comment on above: Performed By: #### C BC #### [facility] [address] [place] [address] Dr. Aubrey Tatum IG # 0.02 10e3/ul Normal 0.00-0.03 [facility] Comment on above: Performed By: #### C BC #### [facility] [address] [place] [address] Dr. Aubrey Tatum IG % 0.2 % Normal 0.0-0.5 [facility] Comment on above: Performed By: #### C BC #### [facility] [address] [place] [address] Dr. Aubrey Tatum LYMPH # 2.0 103/ul Normal 1.2-3.8 [facility] Comment on above: Performed By: #### C BC #### [facility] [address] [place] [address] Dr. Aubrey Tatum Lymphocytes/100 WBC (Bld) 21.8 % Normal 20.5-60.0 [facility] Comment on above: Performed By: #### C BC #### [facility] [address] [place] [address] Dr. Aubrey Tatum MANUAL DIFF REQ NO Normal [facility] Comment on above: Performed By: #### C BC #### [facility] [address] [place] [address] Dr. Aubrey Tatum MCH (RBC) [Entitic mass] 28.1 pg Normal 25.9-34.0 [facility] Comment on above: Performed By: #### C BC #### [facility] [address] [place] [address] Dr. Aubrey Tatum MCHC (RBC) [Mass/Vol] 31.7 g/dL Normal 29.9-35.2 [facility] Comment on above: Performed By: #### C BC #### [facility] [address] [place] [address] Dr. Aubrey Tatum MCV (RBC) [Entitic vol] 88.7 fL Normal 80.0-94.0 [facility] Comment on above: Performed By: #### C BC #### [facility] [address] [place] [address] Dr. Aubrey Tatum MONO # 0.5 103/ul Normal 0.3-0.8 [facility] Comment on above: Performed By: #### C BC #### [facility] [address] [place] [address] Dr. Aubrey Tatum Monocytes/100 WBC (Bld) 5.7 % Normal 1.7-12.0 [facility] Comment on above: Performed By: #### C BC #### [facility] [address] [place] [address] Dr. Aubrey Tatum NEUT # 6.4 103/ul Normal 1.4-6.5 [facility] Comment on above: Performed By: #### C BC #### [facility] [address] [address] [address] Aubrey Tatum Neutrophils/100 WBC (Bld) 70.2 % Normal 43.0-75.0 [facility] Comment on above: Performed By: #### C BC #### [facility] [address] [place] [address] Dr. Aubrey Tatum Platelet mean volume (Bld) [Entitic vol] 9.6 fL Normal 9.5-13.5 [facility] Comment on above: Performed By: #### C BC #### [facility] [address] [place] [address] Dr. Aubrey Tatum PLT 334 103/ul Normal 150-450 [facility] Comment on above: Performed By: #### C BC #### [facility] [address] [place] [address] Dr. Aubrey Tatum RBC 4.62 106/ul Critically low 4.70-6.10 [facility] Comment on above: Performed By: #### C BC #### [facility] [address] [place] [address] Dr. Aubrey Tatum WBC 9.1 103/ul Normal 4.0-11.0 [facility] Comment on above: Performed By: #### C BC #### [facility] [address] [place] [address] Dr. Aubrey Tatum FREE T3on 02-07-2021 FREE T3 2.57 pg/mlL Critically low 2.77-5.27 [facility] Comment on above: Performed By: #### L IPID, CMP, FT3, TSH #### [facility] [address] [place] [address] Dr. Aubrey Tatum FREE T4on 02-07-2021 Free T4 [Mass/Vol] 0.93 ng/dL Normal 0.78-2.19 [facility] Comment on above: Performed By: #### F T4 #### [facility] [address] [place] [address] Dr. Aubrey Tatum LIPID PROFILEon 02-07-2021 CHOL-HDL RATIO NORM SEE BELOW Normal [facility] Comment on above: Result Comment: 3.3 - 4.4 LOW RISK 4.4 - 7.1 AVERAGE RISK 7.1 - 11.0 MODERATE RISK >11.0 HIGH RISK Performed By: #### L IPID, CMP, FT3, TSH #### [facility] [address] [address] [address] Aubrey Tatum Cholesterol [Mass/Vol] 155 mg/dL Normal <=200 Th e [facility] Comment on above: Performed By: #### L IPID, CMP, FT3, TSH #### [facility] [address] [address] [address] Aubrey Tatum Cholesterol in HDL [Mass/Vol] 51 mg/dL Normal [facility] Comment on above: Performed By: #### L IPID, CMP, FT3, TSH #### [facility] [address] [address] [address] Aubrey Tatum Cholesterol in LDL [Mass/Vol] 94.2 mg/dL Normal [facility] Comment on above: Performed By: #### L IPID, CMP, FT3, TSH #### [facility] [address] [address] [address] Aubrey Tatum Cholesterol.total/Chol esterol in HDL [Mass ratio] 3.0 {ratio} Normal [facility] Comment on above: Performed By: #### L IPID, CMP, FT3, TSH #### [facility] [address] [address] [address] Aubrey Tatum HDL NORMAL > or = 60 mg/dl - LO W CARDIOVASCULAR RISK <40 mg/dl - HIGH CARDIOVASCULAR RISK Normal [facility] Comment on above: Performed By: #### L IPID, CMP, FT3, TSH #### [facility] [address] [address] [address] Aubrey Tatum LDL CALC NORMAL SEE BELOW Normal [facility] Comment on above: Result Comment: <100 mg/dl OPTIMAL 100 - 129 mg/dl NEAR OR ABOVE OPTIMAL 130 - 159 mg/dl BORDERLINE HIGH 160 - 189 mg/dl HIGH >190 mg/dl VERY HIGH Performed By: #### L IPID, CMP, FT3, TSH #### [facility] [address] [place] [address] Dr. Aubrey Tatum Triglyceride [Mass/Vol] 49 mg/dL Normal <=150 [facility] Comment on above: Performed By: #### L IPID, CMP, FT3, TSH #### [facility] [address] [address] [address] Aubrey Tatum VLDL CALC 9.8 mg/dL Normal [facility] Comment on above: Performed By: #### L IPID, CMP, FT3, TSH #### [facility] [address] [place] [address] Dr. Aubrey Tatum PROF 14(COMP METB)on 021 Albumin [Mass/Vol] 3.1 g/dL Critically low 3.5-5.0 [facility] Comment on above: Performed By: #### L IPID, CMP, FT3, TSH #### [facility] [address] [place] [address] Dr. Aubrey Tatum Albumin/Globulin [Mass ratio] 0.7 {ratio} Normal [facility] Comment on above: Performed By: #### L IPID, CMP, FT3, TSH #### [facility] [address] [place] [address] Dr. Aubrey Tatum ALP [Catalytic activity/Vol] 86 U/L Normal 38-126 [facility] Comment on above: Performed By: #### L IPID, CMP, FT3, TSH #### [facility] [address] [place] [address] Dr. Aubrey Tatum ALT [Catalytic activity/Vol] 45 U/L Normal 21-72 [facility] Comment on above: Performed By: #### L IPID, CMP, FT3, TSH #### [facility] [address] [place] [address] Dr. Aubrey Tatum Anion gap [Moles/Vol] 11.7 mmol/L Normal [facility] Comment on above: Performed By: #### L IPID, CMP, FT3, TSH #### [facility] [address] [place] [address] Dr. Aubrey Tatum AST [Catalytic activity/Vol] 26 U/L Normal 17-59 [facility] Comment on above: Performed By: #### L IPID, CMP, FT3, TSH #### [facility] [address] [address] [address] Aubrey Tatum Bilirubin [Mass/Vol] 0.4 mg/dL Normal 0.2-1.3 [facility] Comment on above: Performed By: #### L IPID, CMP, FT3, TSH #### [facility] [address] [address] [address] Aubrey Tatum Calcium [Mass/Vol] 9.0 mg/dL Normal 8.4-10.2 [facility] Comment on above: Performed By: #### L IPID, CMP, FT3, TSH #### [facility] [address] [address] [address] Aubrey Tatum Chloride [Moles/Vol] 103 mmol/L Normal 98-107 [facility] Comment on above: Performed By: #### L IPID, CMP, FT3, TSH #### [facility] [address] [address] [address] Aubrey Tatum CO2 [Moles/Vol] 27.9 mmol/L Normal 22.0-30.0 [facility] Comment on above: Performed By: #### L IPID, CMP, FT3, TSH #### [facility] [address] [address] [address] Aubrey Tatum Creatinine [Mass/Vol] 1.31 mg/dL Critically high 0.66-1.25 [facility] Comment on above: Performed By: #### L IPID, CMP, FT3, TSH #### [facility] [address] [address] [address] Aubrey Tatum EGFR-AF PORTUGUESE >60 Normal >=60 [facility] Comment on above: Performed By: #### L IPID, CMP, FT3, TSH #### [facility] [address] [address] [address] Aubrey Tatum EGFR-NON AF [place]UES[place] 58 mL/min/1.73m2 Critically low >=60 [facility] Comment on above: Performed By: #### L IPID, CMP, FT3, TSH #### [facility] [address] [address] [address] Aubrey Tatum Globulin (S) [Mass/Vol] 4.5 g/dL Normal [facility] Comment on above: Performed By: #### L IPID, CMP, FT3, TSH #### [facility] [address] [place] [address] Dr. Aubrey Tatum Glucose [Mass/Vol] 85 mg/dL Normal 74-106 [facility] Comment on above: Performed By: #### L IPID, CMP, FT3, TSH #### [facility] [address] [place] [address] Dr. Aubrey Tatum Potassium [Moles/Vol] 3.6 mmol/L Normal 3.4-5.0 [facility] Comment on above: Performed By: #### L IPID, CMP, FT3, TSH #### [facility] [address] [place] [address] Dr. Aubrey Tatum Protein [Mass/Vol] 7.6 g/dL Normal 6.1-8.2 [facility] Comment on above: Performed By: #### L IPID, CMP, FT3, TSH #### [facility] [address] [place] [address] Dr. Aubrey Tatum Sodium [Moles/Vol] 139 mmol/L Normal 137-145 [facility] Comment on above: Performed By: #### L IPID, CMP, FT3, TSH #### [facility] [address] [place] [address] Dr. Aubrey Tatum Urea nitrogen [Mass/Vol] 26.0 mg/dL Critically high 9.0-20.0 [facility] Comment on above: Performed By: #### L IPID, CMP, FT3, TSH #### [facility] [address] [place] [address] Dr. Aubrey Tatum Urea nitrogen/Creatinine [Mass ratio] 19.8 mg/mg Normal [facility] Comment on above: Performed By: #### L IPID, CMP, FT3, TSH #### [facility] [address] [place], [place] [address] Dr. Aubrey Tatum TSHon 02-07-2021 TSH 2.234 uIU/mL Normal 0.470-4.68 0 [facility] Comment on above: Performed By: #### L IPID, CMP, FT3, TSH #### [facility] [address] [place], [place] [address] Dr. Aubrey Tatum TSH RANGE SEE BELOW Normal [facility] Comment on above: Result Comment: <0.3 4 UIU/ml HYPERTHYROID 0.34-5.60 UIU/ml EUTHYROID >5.60 UIU/ml HYPOTHYROID Performed By: #### L IPID, CMP, FT3, TSH #### [facility] [address] [address] [address] Aubrey Tatum Vital Signs Date Time Vital Sign Value Performing Clinician Facility 09-24-2024 15:38-0400 Body temperature 97.5 [degF] Juvencio Rosa DO Work Phone: [facility] 09-24-2024 15:38-0400 Diastolic blood pressure 98 mm[Hg] Juvencio Rosa DO Work Phone: [facility] 09-24-2024 15:38-0400 Heart rate 78 /min Juvencio Rosa DO Work Phone: [facility] 09-24-2024 15:38-0400 SaO2% (BldA) [Mass fraction] 97 % Juvencio Rosa DO Work Phone: [facility] 09-24-2024 15:38-0400 Systolic blood pressure 190 mm[Hg] Juvencio Rosa DO Work Phone: [facility] 09-17-2024 15:37-0400 Body height 177.8 cm Juvencio Rosa DO Work Phone: [facility] 09-17-2024 15:37-0400 Body mass index (BMI) [Ratio] 55.1 kg/m2 Juvencio Rosa DO Work Phone: [facility] 09-17-2024 15:37-0400 Body temperature 99 [degF] Juvencio Rosa DO Work Phone: [facility] 09-17-2024 15:37-0400 Body weight 174.34 kg Juvencio Rosa DO Work Phone: [facility] 09-17-2024 15:37-0400 Diastolic blood pressure 100 mm[Hg] Juvencio Rosa DO Work Phone: [facility] 09-17-2024 15:37-0400 Heart rate 74 /min Juvencio Rosa DO Work Phone: [facility] 09-17-2024 15:37-0400 Respiratory rate 18 /min Juvencio Rosa DO Work Phone: [facility] 09-17-2024 15:37-0400 SaO2% (BldA) [Mass fraction] 96 % Juvencio Rosa DO Work Phone: [facility] 09-17-2024 15:37-0400 Systolic blood pressure 152 mm[Hg] Juvencio Rosa DO Work Phone: [facility] 07-08-2024 15:21-0400 Body height 177.8 cm Juvencio Rosa DO Work Phone: [facility] 07-08-2024 15:21-0400 Body mass index (BMI) [Ratio] 55.2 kg/m2 Juvencio Rosa DO Work Phone: [facility] 07-08-2024 15:21-0400 Body weight 174.63 kg Juvencio Rosa DO Work Phone: [facility] 07-08-2024 15:21-0400 Diastolic blood pressure 80 mm[Hg] Juvencio Rosa DO Work Phone: [facility] 07-08-2024 15:21-0400 Heart rate 95 /min Juvencio Rosa DO Work Phone: [facility] 07-08-2024 15:21-0400 Respiratory rate 18 /min Juvencio Rosa DO Work Phone: [facility] 07-08-2024 15:21-0400 SaO2% (BldA) [Mass fraction] 95 % Juvencio Rosa DO Work Phone: [facility] 07-08-2024 15:21-0400 Systolic blood pressure 128 mm[Hg] Juvencio Rosa DO Work Phone: [facility] 06-18-2024 15:39-0400 Body height 177.8 cm Juvencio Rosa DO Work Phone: [facility] 06-18-2024 15:39-0400 Body mass index (BMI) [Ratio] 54.1 kg/m2 Juvencio Rosa DO Work Phone: [facility] 06-18-2024 15:39-0400 Body temperature 97.5 [degF] Juvencio Rosa DO Work Phone: [facility] 06-18-2024 15:39-0400 Body weight 171 kg Juvencio Rosa DO Work Phone: [facility] 06-18-2024 15:39-0400 Diastolic blood pressure 78 mm[Hg] Juvencio Rosa DO Work Phone: [facility] 06-18-2024 15:39-0400 Heart rate 60 /min Juvencio Rosa DO Work Phone: [facility] 06-18-2024 15:39-0400 SaO2% (BldA) [Mass fraction] 99 % Juvencio Rosa DO Work Phone: [facility] 06-18-2024 15:39-0400 Systolic blood pressure 160 mm[Hg] Juvencio Rosa DO Work Phone: [facility] 06-10-2024 15:34-0400 Body height 177.8 cm [facility] 06-10-2024 15:34-0400 Body mass index (BMI) [Ratio] 54.2 kg/m2 [facility] 06-10-2024 15:34-0400 Body temperature 97.8 [degF] [facility] 06-10-2024 15:34-0400 Body weight 171.45 kg [facility] 06-10-2024 15:34-0400 Diastolic blood pressure 100 mm[Hg] [facility] 06-10-2024 15:34-0400 Heart rate 62 /min [facility] 06-10-2024 15:34-0400 Respiratory rate 18 /min [facility] 06-10-2024 15:34-0400 SaO2% (BldA) [Mass fraction] 98 % [facility] 06-10-2024 15:34-0400 Systolic blood pressure 142 mm[Hg] [facility] 03-11-2024 15:38-0500 Body height 177.8 cm Juvencio Rosa DO Work Phone: [facility] 03-11-2024 15:38-0500 Body mass index (BMI) [Ratio] 52.6 kg/m2 Juvencio Rosa DO Work Phone: [facility] 03-11-2024 15:38-0500 Body temperature 97.2 [degF] Juvencio Rosa DO Work Phone: [facility] 03-11-2024 15:38-0500 Body weight 166.46 kg Juvencio Rosa DO Work Phone: [facility] 03-11-2024 15:38-0500 Diastolic blood pressure 88 mm[Hg] Juvencio Rosa DO Work Phone: [facility] 03-11-2024 15:38-0500 Heart rate 62 /min Juvencio Rosa DO Work Phone: [facility] 03-11-2024 15:38-0500 Respiratory rate 18 /min Juvencio Rosa DO Work Phone: [facility] 03-11-2024 15:38-0500 SaO2% (BldA) [Mass fraction] 97 % Juvencio Rosa DO Work Phone: [facility] 03-11-2024 15:38-0500 Systolic blood pressure 122 mm[Hg] Juvencio Rosa DO Work Phone: [facility] 02-10-2024 15:08-0500 Body height 177.8 cm Juvencio Rosa DO Work Phone: [facility] 02-10-2024 15:08-0500 Body mass index (BMI) [Ratio] 54.5 kg/m2 Juvencio Rosa DO Work Phone: [facility] 02-10-2024 15:08-0500 Body temperature 98.2 [degF] Juvencio Rosa DO Work Phone: [facility] 02-10-2024 15:08-0500 Body weight 172.36 kg Juvencio Rosa DO Work Phone: [facility] 02-10-2024 15:08-0500 Diastolic blood pressure 112 mm[Hg] Juvencio Rosa DO Work Phone: [facility] 02-10-2024 15:08-0500 Heart rate 59 /min Juvencio Rosa DO Work Phone: [facility] 02-10-2024 15:08-0500 Respiratory rate 18 /min Juvencio Rosa DO Work Phone: [facility] 02-10-2024 15:08-0500 SaO2% (BldA) [Mass fraction] 99 % Juvencio Rosa DO Work Phone: [facility] 02-10-2024 15:08-0500 Systolic blood pressure 170 mm[Hg] Juvencio Rosa DO Work Phone: [facility] 01-16-2024 15:20-0500 Body height 177.8 cm [facility] 01-16-2024 15:20-0500 Body mass index (BMI) [Ratio] 52.4 kg/m2 [facility] 01-16-2024 15:20-0500 Body temperature 97.8 [degF] [facility] 01-16-2024 15:20-0500 Body weight 166 kg [facility] 01-16-2024 15:20-0500 Diastolic blood pressure 78 mm[Hg] [facility] 01-16-2024 15:20-0500 Heart rate 72 /min [facility] 01-16-2024 15:20-0500 Respiratory rate 16 /min [facility] 01-16-2024 15:20-0500 SaO2% (BldA) [Mass fraction] 98 % [facility] 01-16-2024 15:20-0500 Systolic blood pressure 124 mm[Hg] [facility] 2024 15:17-0400 Body height 177.8 cm [facility] 2024 15:17-0400 Body mass index (BMI) [Ratio] 52.4 kg/m2 [facility] 2024 15:17-0400 Body temperature 98.6 [degF] [facility] 2024 15:17-0400 Body weight 166 kg [facility] 2024 15:17-0400 Diastolic blood pressure 94 mm[Hg] [facility] 2024 15:17-0400 Heart rate 74 /min [facility] 2024 15:17-0400 Respiratory rate 16 /min [facility] 2024 15:17-0400 SaO2% (BldA) [Mass fraction] 98 % [facility] 2024 15:17-0400 Systolic blood pressure 158 mm[Hg] [facility] 12-25-2023 15:18-0400 Diastolic blood pressure 100 mm[Hg] [facility] 12-25-2023 15:18-0400 Systolic blood pressure 152 mm[Hg] [facility] 12-25-2023 15:15-0400 Body height 177.8 cm [facility] 12-25-2023 15:15-0400 Body mass index (BMI) [Ratio] 52.6 kg/m2 [facility] 12-25-2023 15:15-0400 Body weight 166.46 kg [facility] 12-25-2023 15:15-0400 Heart rate 70 /min [facility] 12-25-2023 15:15-0400 Respiratory rate 18 /min [facility] 12-25-2023 15:15-0400 SaO2% (BldA) [Mass fraction] 98 % [facility] 11-06-2022 16:30-0400 Body height 177.8 cm Juvencio Rosa Other [employer] [facility] [employer] Other 11-06-2022 16:30-0400 Body mass index (BMI) [Ratio] 49.93 kg/m2 Juvencio Rosa Other [employer] [facility] [employer] Other 11-06-2022 16:30-0400 Body temperature 97.7 [degF] Juvencio Rosa Other [employer] Other 11-06-2022 16:30-0400 Body weight 157.85 kg Juvencio Rosa Other [employer] Other 11-06-2022 16:30-0400 Diastolic blood pressure 74 mm[Hg] Juvencio Rosa Other [employer] Other 11-06-2022 16:30-0400 Respiratory rate 20 /min Juvencio Rosa Other [employer] Other 11-06-2022 16:30-0400 SaO2% (BldA) [Mass fraction] 97 % Juvencio Rosa Other [employer] Other 11-06-2022 16:30-0400 Systolic blood pressure 170 mm[Hg] Juvencio Rosa Other [employer] Other 10-24-2022 15:15-0400 Body height 177.8 cm Michelle Ibeth Other [employer] Other 10-24-2022 15:15-0400 Body mass index (BMI) [Ratio] 50.64 kg/m2 Michelle Ibeth Other [employer] Other 10-24-2022 15:15-0400 Body weight 160.12 kg Michelle Ibeth Other [employer] Other 10-24-2022 15:15-0400 Diastolic blood pressure 95 mm[Hg] Michelle Ibeth Other [employer] Other 10-24-2022 15:15-0400 SaO2% (BldA) [Mass fraction] 97 % Michelle Ibeth Other [employer] Other 10-24-2022 15:15-0400 Systolic blood pressure 153 mm[Hg] Michelle Ibeth Other [employer] Other 05-02-2022 16:30-0500 Body height 177.8 cm Juvencio Rosa Other [employer] Other 05-02-2022 16:30-0500 Body mass index (BMI) [Ratio] 53.94 kg/m2 Juvencio Rosa Other [employer] Other 05-02-2022 16:30-0500 Body temperature 97.5 [degF] Juvencio Rosa Other [employer] Other 05-02-2022 16:30-0500 Body weight 170.55 kg Juvencio Rosa Other [employer] Other 05-02-2022 16:30-0500 Diastolic blood pressure 90 mm[Hg] Juvencio Rosa Other [employer] Other 05-02-2022 16:30-0500 Respiratory rate 20 /min Juvencio Rosa Other [employer] Other 05-02-2022 16:30-0500 SaO2% (BldA) [Mass fraction] 97 % Juvencio Rosa Other [employer] Other 05-02-2022 16:30-0500 Systolic blood pressure 150 mm[Hg] Juvencio Rosa Other [employer] Other 01-31-2022 19:45-0500 Body height 177.8 cm Juvencio Rosa Other [employer] Other 01-31-2022 19:45-0500 Body mass index (BMI) [Ratio] 54.95 kg/m2 Ujvencio Rosa Other [employer] Other 01-31-2022 19:45-0500 Body temperature 99.1 [degF] Juvencio Rosa Other [employer] Other 01-31-2022 19:45-0500 Body weight 173.73 kg Juvencio Rosa Other [employer] Other 01-31-2022 19:45-0500 Diastolic blood pressure 92 mm[Hg] Juvencio Rosa Other [employer] Other 01-31-2022 19:45-0500 Respiratory rate 20 /min Juvencio Rosa Other [employer] Other 01-31-2022 19:45-0500 SaO2% (BldA) [Mass fraction] 98 % Juvencio Rosa Other [employer] Other 01-31-2022 19:45-0500 Systolic blood pressure 142 mm[Hg] Juvencio Rosa Other [employer] Other 11-24-2021 09:45-0400 Body height 177.8 cm Juvencio Rosa Other [employer] Other 11-24-2021 09:45-0400 Body mass index (BMI) [Ratio] 53.23 kg/m2 Juvencio Rosa Other [employer] Other 11-24-2021 09:45-0400 Body temperature 97.6 [degF] Juvencio Rosa Other [employer] Other 11-24-2021 09:45-0400 Body weight 168.29 kg Juvencio Rosa Other [employer] Other 11-24-2021 09:45-0400 Diastolic blood pressure 102 mm[Hg] Juvencio Rosa Other [employer] Other 11-24-2021 09:45-0400 Respiratory rate 20 /min Juvencio Rosa Other [employer] Other 11-24-2021 09:45-0400 SaO2% (BldA) [Mass fraction] 99 % Juvencio Rosa Other [employer] Other 11-24-2021 09:45-0400 Systolic blood pressure 148 mm[Hg] Juvencio Rosa Other [employer] Other 10-25-2021 16:15-0400 Body height 177.8 cm Michelle Ibeth Other [employer] Other 10-25-2021 16:15-0400 Body mass index (BMI) [Ratio] 54.09 kg/m2 Michelle Ibeth Other [employer] Other 10-25-2021 16:15-0400 Body temperature 97.3 [degF] Michelle Ibeth Other [employer] Other 10-25-2021 16:15-0400 Body weight 171.01 kg Michelle Ibeth Other [employer] Other 10-25-2021 16:15-0400 Diastolic blood pressure 111 mm[Hg] Michelle Ibeth Other [employer] Other 10-25-2021 16:15-0400 SaO2% (BldA) [Mass fraction] 96 % Michelle Ibeth Other [employer] Other 10-25-2021 16:15-0400 Systolic blood pressure 182 mm[Hg] Michelle Ibeth Other [employer] Other 01-05-2022 17:30-0500 Body height 177.8 cm Juvencio Rosa Other [employer] Other 03-08-2021 17:30-0500 Body mass index (BMI) [Ratio] 57.93 kg/m2 Juvencio Rosa Other [employer] Other 03-08-2021 17:30-0500 Body temperature 98.9 [degF] Juvencio Rosa Other [employer] Other 03-08-2021 17:30-0500 Body weight 183.16 kg Juvencio Rosa Other [employer] Other 03-08-2021 17:30-0500 Diastolic blood pressure 90 mm[Hg] Juvencio Rosa Other [employer] Other 03-08-2021 17:30-0500 Respiratory rate 20 /min Juvencio Rosa Other [employer] Other 03-08-2021 17:30-0500 SaO2% (BldA) [Mass fraction] 96 % Juvencio Rosa Other [employer] Other 03-08-2021 17:30-0500 Systolic blood pressure 144 mm[Hg] Juvencio Rosa Other [employer] Other 01-23-2021 17:45-0500 Body height 177.8 cm Juvencio Rosa Other [employer] Other 01-23-2021 17:45-0500 Body mass index (BMI) [Ratio] 57.24 kg/m2 Juvencio Rosa Other [employer] Other 01-23-2021 17:45-0500 Body temperature 98.7 [degF] Juvencio Rosa Other [employer] Other 01-23-2021 17:45-0500 Body weight 180.99 kg Juvencio Rosa Other [employer] Other 01-23-2021 17:45-0500 Diastolic blood pressure 90 mm[Hg] Juvencio Rosa Other [employer] Other 01-23-2021 17:45-0500 Respiratory rate 20 /min Juvencio Rosa Other [employer] Other 01-23-2021 17:45-0500 SaO2% (BldA) [Mass fraction] 98 % Juvencio Rosa Other [employer] Other 01-23-2021 17:45-0500 Systolic blood pressure 138 mm[Hg] Juvencio Rosa Other [employer] Other Encounters Encounter Date Encounter Type Care Provider Facility Start: 09-24-2024 End: 09-24-2024 ambulatory Juvencio M. Rosa DO Work Phone: [facility] Work Phone: Start: 09-24-2024 End: 09-24-2024 Patient encounter procedure Edvin Hastings MD -[facility] V[facility] [place] Work Phone: Start: 09-17-2024 End: 09-17-2024 ambulatory Juvencio M. Rosa DO Work Phone: [facility] Work Phone: Start: 09-17-2024 End: 09-17-2024 Patient encounter procedure Juvencioasif AdamsRosa M DO -[facility] [place] Work Phone: Start: 08-10-2024 End: 08-10-2024 ambulatory Juvencio Abe. Rosa DO Work Phone: [facility] Work Phone: Start: 08-10-2024 End: 08-10-2024 Patient encounter procedure Juvencio Rosa DO Work Phone: [facility]-Ultrasound [facility] [place] Work Phone: Start: 07-13-2024 End: 07-13-2024 Patient encounter procedure Juvencio Rosa DO Work Phone: [facility]-Lab [facility] [place] Work Phone: Start: 07-13-2024 End: 07-13-2024 ambulatory Juvencio M. Rosa DO Work Phone: [facility] Work Phone: Start: 07-08-2024 End: 07-08-2024 ambulatory Juvencio Abe. Rosa DO Work Phone: [facility] Work Phone: Start: 07-08-2024 End: 07-08-2024 Patient encounter procedure Juvencio Rosa DO Work Phone: [facility] Work Phone: Start: 06-18-2024 End: 06-18-2024 Patient encounter procedure Juvencio Rosa DO Work Phone: [facility] Vascular Surgery [place] Work Phone: Start: 06-10-2024 End: 06-10-[address] [facility] Work Phone: Start: 06-10-2024 End: 06-10-2024 Patient encounter procedure [facility] [place] Work Phone: Start: 05-20-2024 End: 05-20-[address] [facility] Work Phone: Start: 05-20-2024 End: 05-20-2024 Patient encounter procedure [facility] S[facility] Work Phone: Start: 03-11-2024 End: 03-11-2024 ambulatory Juvencio M. Rosa DO Work Phone: [facility] Work Phone: Start: 03-11-2024 End: 03-11-2024 Patient encounter procedure Juvencio Rosa DO Work Phone: [facility] Work Phone: Start: 02-13-2024 End: 02-13-2024 Patient encounter procedure Juvencio Rosa DO Work Phone: [facility] Vascular Surg Work Phone: Start: 02-10-2024 End: 02-10-2024 Patient encounter procedure Juvencio Rosa DO Work Phone: [facility] Work Phone: Start: 02-10-2024 Non-patient / Non-visit Juvencio Rosa DO Work Phone: [facility] Work Phone: Start: 02-09-2024 Non-patient / Non-visit Juvencio Rosa DO Work Phone: [facility] [place] Work Phone: Start: 02-08-2024 Non-patient / Non-visit Juvencio Rosa DO Work Phone: [facility] [place] Work Phone: Start: 02-07-2024 Non-patient / Non-visit Juvencio Rosa DO Work Phone: [facility] [place] Work Phone: Start: 02-05-2024 End: 02-05-2024 Patient encounter procedure Juvencioasif AdamsRosa DO Work Phone: [facility]-Ultrasound [facility] [place] Work Phone: Start: 02-05-2024 End: 02-05-2024 ambulatory Juvencio M. Rosa Facility:[facility] Start: 01-16-2024 End: 01-16-[address] [facility] Work Phone: Start: 01-16-2024 End: 01-16-2024 Patient encounter procedure [facility] Vascular Surgery [place] Work Phone: Start: 01-08-2024 End: 01-08-2024 ambulatory EDVIN HASTINGS Facility:[facility] Start: 01-08-2024 End: 01-08-2024 Patient encounter procedure EDVIN HASTINGS [facility] Start: 2024 End: [address] [facility] Work Phone: Start: 2024 End: 2024 Patient encounter procedure [facility] Vascular Surgery [place] Work Phone: Start: 12-25-2023 End: 12-25-2023 ambulatory JUVENCIO Abe ROSA Facility:[facility] Start: 12-25-2023 End: 12-25-2023 Patient encounter procedure JUVENCIOAsif ADAMSGLES [facility] Start: 12-25-2023 End: 12-25-[address] [facility] Work Phone: Start: 12-25-2023 End: 12-25-2023 Patient encounter procedure [facility] Work Phone: Start: 04-12-2023 End: 04-12-2023 ambulatory Juvencio Rosa Other [employer] Other Start: 04-12-2023 Telephone encounter Juvencio Rosa [facility] Start: 02-28-2023 End: 02-28-2023 ambulatory Juvencio Rosa Other [employer] Other Start: 02-28-2023 Telephone encounter Juvencio Rosa [facility] Start: 01-08-2023 End: 01-08-2023 ambulatory Juvencio Rosa Other [employer] Other Start: 01-08-2023 Telephone encounter Juvencio Rosa [facility] Start: 12-06-2022 End: 12-06-2022 ambulatory Juvencio Rosa Other [employer] Other Start: 12-06-2022 Telephone encounter Juvencio Rosa [facility] Start: 11-20-2022 End: 11-20-2022 ambulatory Juvencio Rosa Other [employer] Other Start: 11-20-2022 Telephone encounter Juvencio Rosa [facility] Start: 11-06-2022 End: 11-06-2022 ambulatory Juvencio Rosa Other [employer] Other Start: 11-06-2022 Office outpatient visit 15 minutes Juvencio Rosa [facility] Start: 10-30-2022 End: 10-30-2022 ambulatory Juvencio Rosa Other [employer] Other Start: 10-30-2022 Telephone encounter Juvencio Rosa [facility] Start: 10-24-2022 End: 10-24-2022 Patient encounter procedure DO Juvencio Rosa Work Phone: [facility] Work Phone: Start: 10-24-2022 End: 10-24-2022 ambulatory DO Juvencio M. Rosa Work Phone: [facility] Work Phone: Start: 10-24-2022 Office outpatient visit 10 minutes Michelle Ibeth [facility] Start: 10-16-2022 End: 10-16-2022 ambulatory Juvencio Rosa Other [employer] Other Start: 10-16-2022 Telephone encounter Juvencio Rosa [facility] Start: 10-10-2022 End: 10-10-2022 Patient encounter procedure JUVENCIO M ROSA [facility] Start: 09-18-2022 End: 09-18-2022 ambulatory Juvencio Rosa Other [employer] Other Start: 09-18-2022 Telephone encounter Juvencio Rosa [facility] Start: 05-07-2022 End: 05-07-2022 ambulatory Juvencio Rosa Other [employer] Other Start: 05-07-2022 Telephone encounter Juvencio Rosa [facility] Start: 05-04-2022 End: 05-04-2022 ambulatory Juvencio Rosa Other [employer] Other Start: 05-04-2022 Telephone encounter Juvencio Rosa [facility] Start: 05-02-2022 End: 05-02-2022 ambulatory Juvencio Rosa Other [employer] Other Start: 05-02-2022 Office outpatient visit 15 minutes Juvencio Rosa [facility] Start: 01-31-2022 End: 01-31-2022 ambulatory Juvencio Rosa Other [employer] Other Start: 01-31-2022 Office outpatient visit 15 minutes Juvencio Rosa [facility] Start: 12-22-2021 End: 12-22-2021 ambulatory Juvencio Rosa Other [employer] Other Start: 12-22-2021 Telephone encounter Juvencio Rosa [facility] Start: 11-24-2021 End: 11-24-2021 ambulatory Juvencio Rosa Other [employer] Other Start: 11-24-2021 Office outpatient visit 15 minutes Juvencio Rosa [facility] Start: 11-20-2021 End: 11-20-2021 ambulatory Juvencio Rosa Other [employer] Other Start: 11-20-2021 Telephone encounter Juvencio Rosa [facility] Start: 10-25-2021 End: 10-25-2021 Patient encounter procedure DO Juvencio Rosa Work Phone: [facility] Start: 10-25-2021 End: 10-25-2021 ambulatory Michelle Ibeth Other [employer] Other Start: 10-25-2021 Office outpatient visit 10 minutes Michelle Ibeth [facility] Start: 09-07-2021 End: 09-07-2021 ambulatory Juvencio Rosa Other [employer] Other Start: 09-07-2021 Telephone encounter Juvencio Rosa [facility] Start: 07-24-2021 End: 07-24-2021 ambulatory Juvencio Rosa Other [employer] Other Start: 07-24-2021 Telephone encounter Juvencio Rosa [facility] Start: 05-31-2021 End: 05-31-2021 ambulatory Juvencio Rosa Other [employer] Other Start: 05-31-2021 Telephone encounter Juvencio Rosa [facility] Start: 05-30-2021 End: 05-30-2021 Patient encounter procedure DO Juvencio Rosa Work Phone: [facility] Start: 05-24-2021 End: 05-24-2021 ambulatory Juvencio Rosa Other [employer] Other Start: 05-24-2021 Telephone encounter Juvencio Rosa [facility] Start: 05-16-2021 End: 05-16-2021 ambulatory Juvencio Rosa Other [employer] Other Start: 05-16-2021 Telephone encounter Juvencio Rosa [facility] Start: 04-14-2021 End: 04-14-2021 ambulatory Juvencio Rosa Other [employer] Other Start: 04-14-2021 Telephone encounter Juvencio Rosa [facility] Start: 03-08-2021 End: 03-08-2021 ambulatory Juvencio Rosa Other [employer] Other Start: 03-08-2021 Office outpatient visit 15 minutes Juvencio Rosa [facility] Start: 03-08-2021 Telephone encounter Juvencio Rosa [facility] Start: 02-07-2021 End: 02-08-[address] JUVENCIO LEE Facility:[facility] Start: 01-23-2021 End: 01-23-2021 ambulatory Juvencio Rosa Other [employer] Other Start: 01-23-2021 Office outpatient visit 25 minutes Juvencioasif AdamsRosa [facility] Start: 08-30-2020 ambulatory ERMELINDA Hawthorne y:H1 Procedures Date Procedure Procedure Detail Performing Clinician Start: 08-10-2024 Doppler ultrasonogra phy of kidney Juvencio Rosa DO Work Phone: Start: 02-05-2024 Duplex scan of lower limb veins Juvencio Rosa DO Work Phone: Plan of Treatment Date Care Activity Detail Author Start: 08-10-2024 Doppler ultrasonogra phy of kidney US renal doppler [facility] Start: 08-10-2024 US Unspecified body region [facility] Start: 07-13-2024 Aldosterone [Mass/vo lume] in Serum or Plasma [facility] Start: 07-13-2024 Renin [Enzymatic activity/volume] in Plasma [facility] Start: 07-13-2024 [facility] Start: 07-08-2024 [facility] Start: 02-10-2024 Patient referral [facility] Work Phone: Aldosterone [Mass/vo lume] in Serum or Plasma [facility] Creatinine [Mass/vol ume] in Urine [facility] Metanephrines [Mass/ volume] in 24 hour Urine [facility] Metanephrines/Creati nine [Mass Ratio] in Urine [facility] Normetanephrine [Mass/volume] in 24 hour Urine [facility] Patient referral [facility] Work Phone: Renin [Enzymatic activity/volume] in Plasma [facility] US Heart Transthoracic [facility] US Lower extremity v ein - bilateral [facility] US Lower extremity v ein - bilateral [facility] US Unspecified body region [facility] Immunizations Immunization Date Immunization Notes Care Provider Fa cility 08-14-2020 Do not use COVID-19 Pfizer 2 dose Juvencio Rosa Other [facility] 07-24-2020 COVID-19 Vaccine Pfizer - Documentation Purposes Only Juvencio Rosa Other [facility] NEGATED: Highlighted row has not occurred!01-23-2021 influenza, injectable, quadrivalent, contains preservative Patient Objection Juvencio Rosa Other [employer] Other NEGATED: Highlighted row has not occurred!12-09-2019 influenza, injectable, quadrivalent, contains preservative Patient Objection Juvencio Rosa Other [employer] Other NEGATED: Highlighted row has not occurred!01-05-2019 influenza, injectable, quadrivalent, contains preservative Patient Objection Juvencio Rosa Other [employer] Other NEGATED: Highlighted row has not occurred!01-04-2017 influenza, injectable, quadrivalent, contains preservative Patient Objection Juvencio Rosa Other [employer] Other Payers Date Payer Category Payer Self-pay [id number] 1975 Unknown [id number] 1975 Unknown [id number] [id number] [id number] 1973 Unknown [id number] 2.16.8 [id number] 1973 Unknown [id number] 2.16.8 [id number] 1959 Unknown [id number] Unknown [id number] 2.16.8 [id number] Unknown [id number] 2.16.8 [id number] Unknown [id number] 2.16.8 [id number] Unknown [id number] [id number] [id number] Social History Date Type Detail Facility Tobacco smoking stat us ORIS Unknown if ever smoked [employer] Other Start: 1975 Sex Assigned At Male F [facility] Sex Assigned At [facility] Tobacco smoking status No Smokin g Status Entered [facility] Start: 12-25-2023 End: 07-08-2024 Tobacco smoking status NHIS Never smoked tobacco (finding) [facility] Start: 01-16-2024 End: 08-11-2024 Sex Male (finding) [facility] Clinical Notes 01-23-2021 to 07-08-2024 Note Date & Type Note Facility 07-08-2024 Evaluation note Diagnosis Onset Date Resolution Dyspnea on exertion acute July 082024 3:10pm Essential (primary) hypertension acute July 08, 2024 3: 10pm Obstructive sleep apnea acute 2024 3:10pm Elevated serum creatinine noneactive July 08, 2024 3: 10pm Essential (primary) hypertension acute September 17, 2024 3:16pm [facility] Work Phone: 1(804) 946-426204-09-2025 Evaluation note* Diagnosis Onset Date Resolution Status Admit Date Essential (primary) hypertension acute June 10, 2024 3:32pm Body mass index [BMI] 50.0-59.9, adult noneactive June 10, 2024 3:32pm Venous insufficiency of left leg acute June 18, 2024 3:36pm [facility] Work Phone: 1(728) 275-969304-09-2025 Evaluation note* Diagnosis Onset Date Resolution Status Admit Date Essential (primary) hypertension acute June 10, 2024 3:32pm Body mass index [BMI] 50.0-59.9, adult noneactive June 10, 2024 3:32pm Venous insufficiency of left leg acute June 18, 2024 3:36pm Dyspnea on exertion acute July 082024 3:10pm Essential (primary) hypertension acute July 08, 2024 3: 10pm Obstructive sleep apnea acute 2024 3:10pm Elevated serum creatinine noneactive July 08, 2024 3:10pm [facility] Work Phone: 1(123) 545-653401-08-2025 Evaluation note* Diagnosis Onset Date Resolution Status Admit Date Essential (primary) hypertension acute March 11 3:24pm [facility] Work Phone: 1(729) 261-143410-23-2024 Evaluation note* Diagnosis Onset Date Resolution Status Admit Date Essential (primary) hypertension acute December 24 3:13pm Left leg swelling noneactive December 25, 2023 3:13pm Swelling of left lower extremity acute January 01 3:14pm [facility] Work Phone: 1(485) 764-535610-23-2024 Evaluation note* Diagnosis Onset Date Resolution Status Admit Date Essential (primary) hypertension acute December 24 3:13pm Left leg swelling noneactive December 25, 2023 3:13pm Swelling of left lower extremity acute January 01 3:14pm Essential (primary) hypertension acute February 09 3:07pm Obstructive sleep apnea acute D ec2023 3:07pm Venous insufficiency of left leg acute February 12, 2 024 3:29pm Essential (primary) hypertension acute March 11 3:24pm [facility] Work Phone: 1([phone]) 744-812912-28-2023 Evaluation note* Encounter Date Diagnosis Assessment Notes Treatment Notes Treatment Clinical Notes Feb, Decreased GFR (ICD-10 - R94.4) [facility] Other 10-05-2023 Evaluation note* Encounter Date Diagnosis Assessment Notes Treatment Notes Treatment Clinical Notes Dec, Decreased GFR (ICD-10 - R94.4) [facility] Other 09-19-2023 Evaluation note* Encounter Date Diagnosis Assessment Notes Treatment Notes Treatment Clinical Notes Nov, Essential (primary) hypertension (ICD-10 - I10) [facility] Other 09-05-2023 Evaluation note* Encounter Date Diagnosis Assessment Notes Treatment Notes Treatment Clinical Notes Nov, Essential (primary) hypertension (ICD-10 - I10) eRX sent. Pt to take two fo current med then start new one a day med. Nov, Other The goal of hypertension as always to have a blood pressure within acceptable limits, with patient staying compliant with medication. Increased activity, monitoring diet, and weight loss are always encouraged. [facility] Other 08-23-2023 Evaluation note* Encounter Date Diagnosis Assessment Notes Treatment Notes Treatment Clinical Notes Oct, Obstructive sleep apnea (ICD-10 - G47.33) [facility] Other 07-18-2023 Evaluation note* Encounter Date Diagnosis Assessment Notes Treatment Notes Treatment Clinical Notes Sep, Essential (primary) hypertension (ICD-10 - I10) [facility] Other 03-03-2023 Evaluation note* Encounter Date Diagnosis Assessment Notes Treatment Notes Treatment Clinical Notes May, Essential (primary) hypertension (ICD-10 - I10) [facility] Other 03-01-2023 Evaluation note* Encounter Date Diagnosis Assessment Notes Treatment Notes Treatment Clinical Notes May, Essential (primary) hypertension (ICD-10 - I10) May, Chronic fatigue (ICD-10 - R53.82) May, Other The goal of hypertension as always to have a blood pressure within acceptable limits, with patient staying compliant with medication. Increased activity, monitoring diet, and weight loss are always encouraged. [facility] Other 03-01-2023 Evaluation note* Encounter Date Diagnosis Assessment Notes Treatment Notes Treatment Clinical Notes May, Essential (primary) hypertension (ICD-10 - I10) May, Chronic fatigue (ICD-10 - R53.82) Discussed with patient that we can pursue some blood work, I would suggest thyroid as well as some vitamin review. He voices agreement and understanding and we will call him with results. May, Other The goal of hypertension as always to have a blood pressure within acceptable limits, with patient staying compliant with medication. Increased activity, monitoring diet, and weight loss are always encouraged. [facility] Other 11-30-2022 Evaluation note* Encounter Date Diagnosis Assessment Notes Treatment Notes Treatment Clinical Notes Jan, Essential (primary) hypertension (ICD-10 - I10) Better control with his blood pressure with the quadruple therapy. I am somewhat concerned about his increased swelling in his legs. I wonder if this could be secondary to his amlodipine. Therefore I would like him to decrease the amlodipine to 5 mg. We may need to adjust his other medication if the swelling improves but his blood pressure increases. He voices agreement and understanding and will call with update. Jan, Other The goal of hypertension as always to have a blood pressure within acceptable limits, with patient staying compliant with medication. Increased activity, monitoring diet, and weight loss are always encouraged. [facility] Other 10-21-2022 Evaluation note* Encounter Date Diagnosis Assessment Notes Treatment Notes Treatment Clinical Notes Dec, Essential (primary) hypertension (ICD-10 - I10) [facility] Other 09-23-2022 Evaluation note* Encounter Date Diagnosis Assessment Notes Treatment Notes Treatment Clinical Notes Nov, Essential (primary) hypertension (ICD-10 - I10) eRX sent. Will recheck in 2-3 months. Nov, Other The goal of hypertension as always to have a blood pressure within acceptable limits, with patient staying compliant with medication. Increased activity, monitoring diet, and weight loss are always encouraged. [facility] Other 09-19-2022 Evaluation note* Encounter Date Diagnosis Assessment Notes Treatment Notes Treatment Clinical Notes Nov, Essential (primary) hypertension (ICD-10 - I10) [facility] Other 08-24-2022 Evaluation note* Encounter Date Diagnosis Assessment Notes Treatment Notes Treatment Clinical Notes Oct, Obstructive sleep apnea (ICD-10 - G47.33) [facility] Other 05-23-2022 Evaluation note* Encounter Date Diagnosis Assessment Notes Treatment Notes Treatment Clinical Notes July, Essential (primary) hypertension (ICD-10 - I10) [facility] Other 03-23-2022 Evaluation note* Encounter Date Diagnosis Assessment Notes Treatment Notes Treatment Clinical Notes May, Chronic fatigue (ICD-10 - R53.82) [facility] Other 02-11-2022 Evaluation note* Encounter Date Diagnosis Assessment Notes Treatment Notes Treatment Clinical Notes Apr, Essential (primary) hypertension (ICD-10 - I10) [facility] Other 01-05-2022 Evaluation note* Encounter Date Diagnosis Assessment Notes Treatment Notes Treatment Clinical Notes Mar, Essential (primary) hypertension (ICD-10 - I10) Lengthy discussion with patient that he really needs to take his medications routinely. If that means leaving them at work and taking them when he gets to work every day, or setting an alarm on his phone, or putting a note on the dash of his car, he really needs to take this medication routinely. His weight is also continue to elevate and now he is over 400 pounds. This is not good, and really not helping his cause with his blood pressure. He voices agreement and understanding to the all of this. Mar, Daytime somnolence (ICD-10 - R40.0) Lengthy discussion with patient today that I think it is quite reasonable to have him see sleep medicine for review. He would like to go ahead and pursue this. We will make referral. Mar, Other The goal of hypertension as always to have a blood pressure within acceptable limits, with patient staying compliant with medication. Increased activity, monitoring diet, and weight loss are always encouraged. [facility] Other 11-22-2021 Evaluation note* Encounter Date Diagnosis Assessment Notes Treatment Notes Treatment Clinical Notes Jan, Essential (primary) hypertension (ICD-10 - I10) Stable control today, but certainly at the upper limit of normal. We talked at great length regarding his weight, which is almost 400 pounds. He really needs to start watching his diet much more carefully and stay away from fast food. He needs to lose a lot of weight. Jan, Chronic fatigue (ICD-10 - R53.82) Lengthy 30+ minute discussion today. I think I would like to pursue some blood work, as we need to make sure there are not any abnormalities on the blood work that could be contributing to his weight gain, specifically thyroid. Jan, Other The goal of hypertension as always to have a blood pressure within acceptable limits, with patient staying compliant with medication. Increased activity, monitoring diet, and weight loss are always encouraged. [facility] [employer] Other Evaluation + Plan note No data available for this section [facility] assessment information available [facility] Work Phone: Evaluation noteNo InformationNortUPMC [facility] [employer] Other Evaluation note* Diagnosis Onset Date Resolution Status Essential (primary) hypertension acute Left leg swelling noneactive [facility] Work Phone: Evaluation note* Diagnosis Onset Date Resolution Status Admit Date Essential (primary) hypertension acu te June 10, 2024 3:32pm [facility] Work Phone: History general Narrative - Reported* Type Description Date Medical History Hypertension [facility] [employer] Other History general Narrative - Reported* Type Description Date Medical History Hypertension Medical History Sleep Apnea [facility] [employer] Other Hospital Discharge instructions No data available for this section [facility] No data available for this section [facility] HospitalReason for referral (narrative)No reason for referral information availablePark[facility] Work Phone: Summary Purpose Family History Relationship Condition Age at Onset Recorded Date/T lucas brother Diabetes mellitus Unknown Unknown father Diabetes mellitus Unknown Hypertension Unknown mother Unknown Diabetes mellitus Unknown Malignant neoplasm of pancreas Unknown Advance Directives Advance Directive Response Recorded Date/ Time Advance Directives No December 26, 2016 11:07am Advance Directive Response Recorded Date/ Time Advance Directives No December 26, 2016 10:07am Chief Complaint and Reason for Visit Chief Complaint r06.83 e66.9 i10 day time fatigue Chief Complaint Sleep apnea 31-90 da y follow up Chief Complaint Sleep apnea annual f ollow up Chief Complaint BP concerns Reason for Visit Essential (primary) hypertension Left leg swelling Chief Complaint BP concerns REF BY DR. LEE FOR LEG SWELLING Reason for Visit Essential (primary) hypertension Left leg swelling Chief Complaint Admit Date BP concerns December 25, 2023 3 :13pm REF BY DR. LEE FOR LEG SWELLING [facility] 2023 3:14pm GO OVER F/F DONE AT [facility] January 16, 2024 3:15pm Reason for Visit Admit Date Essential (primary) hypertension December 25, 2023 3:13pm Left leg swelling December 25, 2023 3 :13pm Swelling of left lower extremity 2024 3:14pm Chief Complaint Admit Date BP concerns December 25, 2023 3 :13pm REF BY DR. LEE FOR LEG SWELLING Dec 2023 3:14pm GO OVER F/F DONE AT [facility] January 16, 2024 3:15pm I83.813 February 05, 2024 3 :22pm Amb Documentation February 10, 2024 1 2:03pm chest congestion February 10, 2024 3 :07pm GO OVER F/F DONE [place] [facility] February 13, 2024 3:29pm one month March 11, 2024 3: 24pm Reason for Visit Admit Date Essential (primary) hypertension December 25, 2023 3:13pm Left leg swelling December 25, 2023 3 :13pm Swelling of left lower extremity 2024 3:14pm Essential (primary) hypertension [facility] [place] [facility] 2023 3:07pm Obstructive sleep apnea February 09 3:07pm Venous insufficiency of left leg [facility] [place] [facility] 2023 3:29pm Essential (primary) hypertension March 11, 2024 3:24pm Chief Complaint Admit Date one month March 11, 2024 3: 24pm rfa lt gsv May 20, 2024 1:1 4pm Reason for Visit Admit Date Essential (primary) hypertension March 11, 2024 3:24pm Chief Complaint Admit Date rfa lt gsv May 20, 2024 1:1 4pm 3 MONTH June 10, 2024 3:32 pm Reason for Visit Admit Date Essential (primary) hypertension June 102024 3:32pm Chief Complaint Admit Date rfa lt gsv May 20, 2024 1:1 4pm 3 MONTH June 10, 2024 3:32 pm 4 WK S/P RFA LEFT LEG June 18, 2024 3 :36pm Essential HTN July 08, 2024 3:10pm Reason for Visit Admit Date Essential (primary) hypertension June 102024 3:32pm Body mass index [BMI] 50.0-59.9, adult A pril 2024 3:32pm Venous insufficiency of left leg June 022024 3:36pm Reason for Visit Admit Date Essential (primary) hypertension June 102024 3:32pm Body mass index [BMI] 50.0-59.9, adult A pril 2024 3:32pm Venous insufficiency of left leg June 022024 3:36pm Dyspnea on exertion July 08, 2024 3:10pm Essential (primary) hypertension July 3:10pm Obstructive sleep apnea July 08, 2024 3: 10pm Elevated serum creatinine July 08, 2024 3:10pm Chief Complaint Admit Date rfa lt gsv May 20, 2024 1:1 4pm 3 MONTH June 10, 2024 3:32 pm 4 WK S/P RFA LEFT LEG June 18, 2024 3 :36pm Essential HTN July 08, 2024 3:10pm I10 July 08, 2024 3:12pm I10 July 13, 2024 3:32p m Chief Complaint Admit Date rfa lt gsv May 20, 2024 1:1 4pm 3 MONTH June 10, 2024 3:32 pm 4 WK S/P RFA LEFT LEG June 18, 2024 3 :36pm Essential HTN July 08, 2024 3:10pm I10 July 08, 2024 3:12pm I10 July 13, 2024 3:32p m I10 August 10, 2024 7:58a m Chief Complaint Admit Date Essential HTN July 08, 2024 3:10pm I10 July 08, 2024 3:12pm I10 July 13, 2024 3:32p m I10 August 10, 2024 7:58a m 3 month follow up September 17, 2024 3:16 pm Reason for Visit Admit Date Dyspnea on exertion July 08, 2024 3:10pm Essential (primary) hypertension July 3:10pm Obstructive sleep apnea July 08, 2024 3: 10pm Elevated serum creatinine July 08, 2024 3:10pm Essential (primary) hypertension September 172024 3:16pm Chief Complaint Admit Date Essential HTN July 08, 2024 3:10pm I10 July 08, 2024 3:12pm I10 July 13, 2024 3:32p m I10 August 10, 2024 7:58a m 3 month follow up September 17, 2024 3:16 pm 3 mo VV F/U no testing September 24, 2024 3 :37pm Additional Source Comments (unrecognized sect ion and content) No Status Records FoundNo Status Records FoundNo Status Records Found INFORMATION SOURCE (unrecogn ized section and content) DATE CREATED AUTHOR 02/12/2021 [facility] DATE CREATED AUTHOR AUTHOR'S ORGANIZ ATION [facility]20[facility] DATE CREATED AUTHOR AUTHOR'S ORGANIZ ATION 09/14/2024 [facility] Care Teams (unrecognized sec tion and content) Team Status: Inactive Member Role Status Dates Juvencio Lee DO Primary Care Provider, Referring Provider Active Eber Krause MD Attending Provider Active Team Status: Active Member Role Status Dates Juvencio Lee DO Primary Care Provider Active Team Status: Inactive Member Role Status Dates Juvencio Lee DO Primary Care Provider Active Michelle Cristina APRN [facility] Attending Provider Active Team Status: Inactive Member Role Status Dates Juvencio Lee DO Primary Care Provid er, Attending Provider Active Start: December 25, 2023 End: December 25, 2023 Team Status: Inactive Member Role Status Dates Juvencio Lee DO Primary Care Provider Active Start: 2024 End: 2024 Edvin Hastings MD Attending Provider Active Start: 2024 End: 2024 Team Status: Inactive Member Role Status Dates Juvencio Lee DO Primary Care Provider Active Start: January 16, 2024 End: January 16, 2024 Edvin Hastings MD Attending Provider Active Start: January 16, 2024 End: January 16, 2024 Team Status: Inactive Member Role Status Dates Juvencio Lee DO Primary Care Provider Active Start: February 05, 2024 End: February 05, 2024 Edvin Hastings MD Attending Provider Active Start: February 05, 2024 End: February 05, 2024 Team Status: Active Member Role Status Dates Juvencio Lee DO Primary Care Provider Active Start: February 07, 2024 Suresh Naik DO Attending Provider Active S tart: February 07, 2024 Team Status: Active Member Role Status Dates Juvencio Lee DO Primary Care Provider Active Start: February 08, 2024 Kristopher Andrew MD Attending Provider Active Sta rt: February 08, 2024 Team Status: Active Member Role Status Dates Juvencio Lee DO Primary Care Provider Active Start: February 09, 2024 Kristopher Andrew MD Attending Provider Active Sta rt: February 09, 2024 Team Status: Active Member Role Status Dates Juvencio Lee DO Primary Care Provider Active Start: February 10, 2024 Victor M Chiu LPN Attending Provider Active St art: February 10, 2024 Team Status: Inactive Member Role Status Dates Juvencio Lee DO Primary Care Provid er, Attending Provider Active Start: February 10, 2024 End: February 10, 2024 Team Status: Inactive Member Role Status Dates Juvencio Lee DO Primary Care Provider Active Start: February 13, 2024 End: February 13, 2024 Edvin Hastings MD Attending Provider Active Start: February 13, 2024 End: February 13, 2024 Team Status: Inactive Member Role Status Dates Juvencio Lee DO Primary Care Provid er, Attending Provider Active Start: March 11, 2024 End: March 11, 2024 Team Status: Inactive Member Role Status Dates Juvencio Lee DO Primary Care Provider Active Start: May 20, 2024 End: May 20, 2024 Edvin Hastings MD Attending Provider Active Start: May 20, 2024 End: May 20, 2024 Team Status: Inactive Member Role Status Dates Juvencio Lee DO Primary Care Provid er, Attending Provider Active Start: June 10, 2024 End: June 10, 2024 Team Status: Inactive Member Role Status Dates Juvencio Lee DO Primary Care Provider Active Start: June 18, 2024 End: June 18, 2024 Edvin Hastings MD Attending Provider Active Start: June 18, 2024 End: June 18, 2024 Team Status: Inactive Member Role Status Dates Juvencio Lee DO Primary Care Provid er, Referring Provider Active Start: July 08, 2024 End: July 08, 2024 Daniel Gloria MD Attending Provider Activ e Start: July 08, 2024 End: July 08, 2024 Team Status: Active Member Role Status Dates Juvencio Lee DO Primary Care Provider Active Start: July 08, 2024 Daniel Gloria MD Attending Provider Activ e Start: July 08, 2024 Team Status: Inactive Member Role Status Dates Juvencio Lee DO Primary Care Provider Active Start: July 08, 2024 End: July 08, 2024 Daniel Gloria MD Attending Provider Activ e Start: July 08, 2024 End: July 08, 2024 Team Status: Inactive Member Role Status Dates Juvencio Lee DO Primary Care Provider Active Start: July 13, 2024 End: July 13, 2024 Daniel Gloria MD Attending Provider Activ e Start: July 13, 2024 End: July 13, 2024 Team Status: Inactive Member Role Status Dates Juvencio Lee DO Primary Care Provider Active Start: August 10, 2024 End: August 10, 2024 Daniel Gloria MD Attending Provider Activ e Start: August 10, 2024 End: August 10, 2024 Team Status: Inactive Member Role Status Dates Juvencio Lee DO Primary Care Provider Active Start: July 08, 2024 End: July 08, 2024 Juvencio Lee DO Referring Provider Active S tart: July 08, 2024 End: July 08, 2024 Daniel Gloria MD Attending Provider Activ e Start: July 08, 2024 End: July 08, 2024 Team Status: Inactive Member Role Status Dates Juvencio Lee DO Primary Care Provider Active Start: September 17, 2024 End: September 17, 2024 Juvencio Lee DO Attending Provider Active S tart: September 17, 2024 End: September 17, 2024 Team Status: Inactive Member Role Status Dates Juvencio Lee DO Primary Care Provider Active Start: September 24, 2024 End: September 24, 2024 Edvin Hastings MD Attending Provider Active Start: September 24, 2024 End: September 24, 2024 Goals (unrecognized section and content) Goals may be documented in a n alternate sectionNo InformationNo InformationNo InformationNo InformationNo InformationNo InformationNo InformationNo InformationNo InformationNo InformationGoals may be documented in an alternate sectionNo InformationNo InformationNo InformationNo InformationNo InformationNo InformationNo InformationNo InformationNo Information No data available for this sectionNo InformationNo InformationGoals may be documented in an alternate sectionNo InformationNo InformationNo InformationNo InformationNo InformationNo InformationNo InformationGoals may be documented in an alternate section No data available for this sectionGoals may be documented in an alternate section No data available for this sectionGoals may be documented in an alternate sectionGoals may be documented in an alternate sectionGoals may be documented in an alternate sectionGoals may be documented in an alternate sectionGoals may be documented in an alternate sectionGoals may be documented in an alternate sectionGoals may be documented in an alternate sectionGoals may be documented in an alternate sectionGoals may be documented in an alternate sectionGoals may be documented in an alternate sectionGoals may be documented in an alternate section REASON FOR VISIT (unrecogniz ed section and content) 6 month Follow upSleep Med R eferralFollow up, Review Labs he had drawn 02/2021, Hypertension Management - Takes medications as prescribed the best he can, states he does forget on occasion, Patient denies checking his blood pressure at homerefill norvascSleep Lab Referralrefill hctzlab reminderrefill norvasclisinoprilSLEEP LABrefill norvascfollow upRefill Metoprolol2 month Follow up3 month Follow uprefill metoprololrefill Lisinopril3 month Follow uprefill norvascLab resultsSLEEP LABrefill Vit D6 month Follow up, pt says he hadnt' taken his bp medications for a few days but i'm back on them -refill metoprolollab remindercmp lab results/ reminderLab reminderrefill hctz FOR RECORDS PERTAINING TO PATIENTS WHO ARE OR HAVE BEEN ENROLLED IN A CHEMICAL DEPENDENCY/SUBSTANCEABUSE PROGRAM, SOME INFORMATION MAY BE OMITTED. This clinical summary was aggregated from multiple sources. Caution should be exercised in using it in the provision of clinical care. This summary normalizes information from multiple sources, and as a consequence, information in this document may materially change the coding, format and clinical context of patient data. In addition, data may be omitted in some cases. CLINICAL DECISIONS SHOULD BE BASED ON THE PRIMARY CLINICAL RECORDS. [facility] [facility] provides no warranty or guarantee of the accuracy or completeness of information in this document.
[2024-10-22 22:10] VITALS: BP 180/82; PULSE 76; TEMP 37.9; O2SAT 98; BMI 55.2
[2024-10-23] VITALS (9 sets, daily range): BP systolic 140–172; BP diastolic 71–93; PULSE 63–79; TEMP 36.7–37.2; O2SAT 92–98; BMI 54.6
--- NOTE | 2024-10-23 00:33 | ED.EXTPRO1 ---
HPI - Extremity Problem General Chief complaint: Extremity Problem, Nontraumatic Stated complaint: EXTREMITY PROBLEM NONTRAUMATIC Time Seen by Provider: 10/22/24 23:57 Source: patient Mode of arrival: walk-in Limitations: no limitations History of Present Illness HPI Narrative: This 49-year-old male who is morbidly obese is brought to the emergency department by his family for evaluation of redness and swelling of the left lower extremity. The patient states the symptoms have been present for about a week. He has also been having some fevers chills nausea and diarrhea. He denies any chest pain or shortness of breath. The patient states that since having the surgery several years ago the left leg has been larger than the right leg. At this time it is markedly enlarged compared to the right leg with multiple sores on the anterior surface with redness and swelling that extends from the foot to the lower medial thigh. He is also noted to have a fever. The patient's family states that he did not realize it was this red and swollen because he is always wearing pants. He is not diabetic. Related Data Home Medications ?Medication ?Instructions ?Recorded ?Confirmed hydrochlorothiazide 25 mg tablet 25 mg PO DAILY 02/07/24 10/22/24 metoprolol succinate 200 mg 200 mg PO DAILY 02/07/24 02/07/24 tablet,extended release 24 hr carvedilol 25 mg tablet mg 10/22/24 clonidine HCl 0.2 mg tablet mg 10/22/24 Previous Rx's ?Medication ?Instructions ?Recorded amlodipine 10 mg tablet 10 mg PO DAILY #30 tabs 02/09/24 clonidine HCl 0.1 mg tablet 0.1 mg PO TID #90 tabs 02/09/24 Allergies Allergy/AdvReac Type Severity Reaction Status Date / Time No Known Drug Allergies Allergy Verified 10/22/24 22:13 Review of Systems ROS Status of ROS 10 or more systems reviewed and unremarkable except as noted in history and below PFSH PFS Medical History Hypertension ?I10 - Essential (primary) hypertension (ICD-10) Family History Other Family history of diabetes mellitus Family history of hypertension Family history of myocardial infarction Social History Within the past year, how often did you have a drink containing alcohol: monthly or less Within the past year, how many standard drinks containing alcohol did you have on a typical day: 1 or 2 Total score: 0 Score interpretation: A score less than 4 is consistent with normal alcohol consumption. Smoking status: Never smoker Non-prescribed substance use: denies use Previous occupational history: [employer] Highest level of school completed/degree received: high school graduate Are you now , , , , never or living with a partner: In a typical week, how many times do you talk on the telephone with family, friends, or neighbors: 3 or more times per week How often do you get together with friends or relatives: 3 or more times per week Little interest or pleasure in doing things: not at all Feeling down, depressed, or hopeless: not at all Do you think of yourself as: straight/heterosexual Gender Identity: male Exam Narrative Exam Narrative: Vital signs and Nursing Notes reviewed: Patient is febrile with a normal pulse, blood pressure is elevated at 180/82, he is not hypoxic with pulse ox of 98% on room air General: Awake, alert, oriented, mildly ill-appearing obese adult male, no respiratory distress HEENT: Normocephalic atraumatic, mucous membranes are pink and dry Neck: Supple, no meningeal signs, no anterior or posterior cervical lymphadenopathy Chest: Lungs are clear to auscultation with good air entry, there is no wheezing rhonchi or rales appreciated no accessory muscle use, patient is speaking in complete sentences-no chest wall tenderness to palpation CVS: Regular rate and rhythm S1-S2, no murmurs rubs or gallops, pulses are brisk and equal bilaterally ABD: Soft, nondistended, nontender, no rebound guarding or rigidity, bowel sounds are normal, no pulsatile masses appreciated Extremities: The left lower extremity is markedly enlarged compared to the right lower extremity with circumferential lower leg erythema and multiple small sores on the anterior, lateral and to a lesser extent posterior surface of the leg. The erythema extends medially up to the lower thigh, foot is also edematous. Toes are warm and sensate. Dorsalis pedis pulses present-there is no drainage to culture Skin: Normal the exception of the left lower leg as described above Neuro: No focal deficits Constitutional Vital Signs, click to edit/add: Last Vital Signs Temp 100.3 F 10/22/24 22:10 Pulse 76 10/22/24 22:10 Resp 18 10/22/24 22:10 BP 180/82 H 10/22/24 22:10 Pulse Ox 98 10/22/24 22:10 O2 Del Method Room Air 10/22/24 22:10 Course Vital Signs Vital signs: Vital Signs Temperature 100.3 F 10/22/24 22:10 Pulse Rate 76 10/22/24 22:10 Respiratory Rate 18 10/22/24 22:10 Blood Pressure 180/82 H 10/22/24 22:10 Pulse Oximetry 98 10/22/24 22:10 Oxygen Delivery Method Room Air 10/22/24 22:10 Temperature 100.3 F 10/22/24 22:10 Pulse Rate 76 10/22/24 22:10 Respiratory Rate 18 10/22/24 22:10 Blood Pressure 180/82 H 10/22/24 22:10 Pulse Oximetry 98 10/22/24 22:10 Oxygen Delivery Method Room Air 10/22/24 22:10 MDM - Extremity (Nontraumatic) MDM Narrative Medical decision making narrative: This 49-year-old male who is morbidly obese and states that his left leg is always swollen compared to the right leg after having knee surgery in the past is brought to the emergency department by his family after his saw his left leg. The patient has not been feeling well for the past several days with chills, sweats and diarrhea. He does have a history of chronic renal insufficiency. His baseline creatinine is around 2.5-2.8. On arrival he was taken to room 2. His left leg is markedly erythematous and edematous with multiple sores on the anterior and posterior surface with redness extending up past the knee into the lower medial thigh. His foot is warm and sensate with a palpable dorsalis pedis pulse. He was febrile upon arrival and a septic workup was ordered. EKG is a sinus rhythm at 76 bpm with no acute changes. An IV was placed and he was medicated with IV fluids and Tylenol. Empiric antibiotics including Zofran and vancomycin were ordered. The patient has a markedly elevated white count at 21.5. Hemoglobin is stable at 12. His D-dimer is elevated at 1.39. Ultrasound is not available at this time and he was given subcutaneous Lovenox pending an ultrasound evaluation for DVT. His sodium is 132. Potassium is mildly low at 3.2. 1 is 46 and creatinine is 3.79. Troponin is normal at 44.8. Lactic is normal at 1.9. Glucose was 119. He remains hemodynamically stable in the emergency department. The full 30 cc/kg of normal saline was not given to the patient due to his compromised kidney function. He appears more comfortable after the fluids, Tylenol and antibiotics. He remains hemodynamically stable on the monitor. The case was discussed with the hospitalist and the patient is accepted for admission. Lab Data Attestation: I reviewed the patient's lab results. Labs: Lab Results 10/23/24 Range/Units 00:40 WBC 21.5 H (4.0-11.0) 10^3/uL RBC 4.10 L (4.70-6.10) 10^6/uL Hgb 12.0 L (14.0-18.0) g/dL Hct 35.5 L (42.0-54.0) % MCV 86.6 (80.0-94.0) fL MCH 29.3 (25.9-34.0) pg MCHC 33.8 (29.9-35.2) g/dL RDW 13.6 (11.0-15.0) % Plt Count 257 (150-450) 10^3/uL MPV 10.3 (9.5-13.5) fL Neut % (Auto) 87.6 H (43.0-75.0) % Lymph % (Auto) 7.6 L (20.5-60.0) % [place] % (Auto) 3.3 (1.7-12.0) % Eos % (Auto) 0.8 L (0.9-7.0) % Baso % (Auto) 0.2 (0.2-2.0) % Neut # (Auto) 18.9 H (1.4-6.5) 10^3/uL Lymph # (Auto) 1.6 (1.2-3.8) 10^3/uL [place] # (Auto) 0.7 (0.3-0.8) 10^3/uL Eos # (Auto) 0.2 (0.0-0.7) 10^3/uL Baso # (Auto) 0.1 (0.0-0.1) 10^3/uL Abs Immat Gran (auto) 0.10 H (0.00-0.03) 10^3/uL Imm/Tot Granulo (auto) 0.5 (0.0-0.5) % PT 11.3 (9.0-11.6) sec INR 1.07 APTT 35.6 (22.3-36.2) sec D-Dimer 1.39 H* (<=0.59) mg/L FEU Sodium 132 L (136-145) mmol/L Potassium 3.2 L (3.5-5.1) mmol/L Chloride 97 L (98-107) mmol/L Carbon Dioxide 25.1 (21.0-32.0) mmol/L Anion Gap 13.1 BUN 46.0 H (7.0-18.0) mg/dL Creatinine 3.79 H (0.70-1.30) mg/dL Est GFR ( Amer) 21 L (>=60 mL/min/1.73m^2) Est GFR (Non-Af Amer) 17 L (>=60 mL/min/1.73m^2) BUN/Creatinine Ratio 12.1 Glucose 119 H (74-106) mg/dL Lactate 1.1 (0.4-2.0) mmol/L Calcium 8.5 (8.5-10.1) mg/dL Total Bilirubin 0.4 (0.2-1.0) mg/dL AST 24 (15-37) U/L ALT 27 (16-63) U/L Alkaline Phosphatase 89 (46-116) U/L Troponin I High Sens 44.8 (4.0-76.1) pg/mL Total Protein 7.8 (6.4-8.2) g/dL Albumin 2.4 L (3.4-5.0) g/dL Globulin 5.4 g/dL Albumin/Globulin Ratio 0.4 ECG Data Attestation ECG: I personally reviewed and interpreted this ECG as follows: (Sinus rhythm at 76 bpm, nonspecific interventricular conduction delay, no acute ST segment elevation or T wave inversion) Discharge Plan Discharge Chief Complaint: Extremity Problem, Nontraumatic Clinical Impression: Cellulitis of left lower limb, Acute kidney injury Patient Disposition: Admitted As Inpatient Time of Disposition Decision: 02:36 Condition: Good
[2024-10-23 01:01] LABS: Hematocrit 35.5 % (42.0-54.0); Hemoglobin 12.0 g/dL (14.0-18.0); Immature Granulocytes Abs Auto 0.10 10^3/uL (0.00-0.03); Immature Granulocytes Pct Auto 0.5 % (0.0-0.5); Lymphocytes Absolute Auto 1.6 10^3/uL (1.2-3.8); Mean Corpuscular HGB Conc 33.8 g/dL (29.9-35.2); Mean Corpuscular Hemoglobin 29.3 pg (25.9-34.0); Mean Corpuscular Volume 86.6 fL (80.0-94.0); Platelet Count 257 10^3/uL (150-450); Red Blood Count 4.10 10^6/uL (4.70-6.10); White Blood Count 21.5 10^3/uL (4.0-11.0)
[2024-10-23] MEDS: ACETAMINOPHEN 325 MG TABLET 650 MG PO (01:02)
[2024-10-23] MEDS: 0.9 % SODIUM CHLORIDE 1,000 ML 999 ML IV (01:03)
[2024-10-23] MEDS: PIPERACILLIN SODIUM/TAZOBACTAM 3.375 GM in 0.9 % SODIUM CHLORIDE 50 ML IV ×2 (01:04→16:33)
[2024-10-23 01:14] LABS: INR 1.07; Partial Thromboplastin Time 35.6 sec (22.3-36.2); Prothrombin Time 11.3 sec (9.0-11.6)
[2024-10-23 01:19] LABS: Lactate/Lactic Acid 1.1 mmol/L (0.4-2.0)
[2024-10-23 01:25] LABS: Alanine Aminotransferase 27 U/L (16-63); Albumin Globulin Ratio 0.4; Albumin Level 2.4 g/dL (3.4-5.0); Alkaline Phosphatase 89 U/L (46-116); Anion Gap 13.1; Aspartate Amino Transferase 24 U/L (15-37); Blood Urea Nitrogen 46.0 mg/dL (7.0-18.0); Calcium 8.5 mg/dL (8.5-10.1); Carbon Dioxide 25.1 mmol/L (21.0-32.0); Chloride 97 mmol/L (98-107); Estimated GFR (African America 21 (>=60 mL/min/1.73m^2); Estimated GFR (Non-African Ame 17 (>=60 mL/min/1.73m^2); Globulin 5.4 g/dL; Glucose 119 mg/dL (74-106); Potassium 3.2 mmol/L (3.5-5.1); Sodium 132 mmol/L (136-145); Total Protein 7.8 g/dL (6.4-8.2)
[2024-10-23] MEDS: VANCOMYCIN HCL 2,000 MG in 0.9 % SODIUM CHLORIDE 500 ML 250 MG IV (02:03)
[2024-10-23] MEDS: ENOXAPARIN SODIUM 120 MG/0.8 ML SYRINGE 150 MG SUBQ (02:06)
--- NOTE | 2024-10-23 02:33 | ECG_ITS ---
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
--- OUTSIDE RECORDS SUMMARY | 2024-10-23 03:23 | XMS_ITS | CCD ---
Author Organization [facility] CliniSyma Care Team Providers Care Buttoner Name Role Phone ROSA, DR JUVENCIO Fish Consulting Unavailable ROSA, DR JUVENCIO Fish Attending Unavailable ROSA, DR JUVENCIO Fish Admitting Unavailable ROSA, DR JUVENCIO Fish Primary Care Unavailable ILAERMELINDA Admitting Unavailable ILAERMELINDA Attending Unavailable ROSA, DR JUVENCIO Fish Primary Care Unavailable Rosa, DO Juvencio M. Primary Care Provider Rosa, DO Juvencio M. Referring Provider MD Eber Krause Attending Provider Rosa, Juvencio Unavailable Michelle Cristina Unavailable Rosa, DO Juvencio M. Primary Care Provider MICHELE Cristina Attending Provider [phone] ROSA, JUVENCIO M Primary Care Physician [phone] Rosa, DO Juvencio M. Primary Care Provider MICHELE Cristina Attending Provider EDVIN HASTINGS. Attending Unavailab EDVIN Webb Referring Unavailab EDVIN Webb Admitting Unavailab le ROSA, JUVENCIO M Admitting Unavailable ROSA, JUVENCIO M Attending Unavailable ROSA, JUVENCIO M Referring Unavailable Rosa DO, Juvencio M. Primary Care Provider Edvin Hastings MD Attending Provider [phone] Rosa DO, Juvencio M. Primary Care Provider [...] Attending Provider Edvin Hastings MD Attending Provider [phone] Medications Current Medications Medication Drug Class(es) Dates [...] ) Start: 05-07-2023 CPAP Active 0 .Route .[facility] May 07, 2023 1:00am Medication Name: CPAP [...] every week Vitamin D (Ergocalciferol) 1.25 MG (22488 UT) 1 capsule Orally weekly for 90 [...] Facility US renal doppleron US renal doppler [facility] [place] [address] Ultrasound Report Signed Patient: Suresh Vallejo MR#: [id number] 0 : 1975 Acct:[id number] Age/Sex: 49 / M ADM Date: 08/10/24 Loc: UL Room: Type: [facility] CLI Attending Dr: Daniel Gloria MD Ordering Provider: Daniel Gloria MD Date of Service: 08/10/24 US/US renal doppler: R/O Renal artery stenosis Copies to: Daniel Gloria MD Renal artery duplex examination performed using B-mode, color flow and spectral Doppler assessment (CPT: 54819) INDICATION: FINDINGS: Aorta: PSV 54.2 cm/s Right [...] Hastings MD,FACS,FSVS 08/11/2024 12:33 PM Dictation Location: [place] [address] Tech: Elis Sotelo Transcribed By: [facility] 08/11/24 1233 Dictated By: Edvin Hastings MD 08/11/24 1232 Signed By: 08/11/24 1233 Normal [facility] echo transthoracicon [facility] echo transthoracic [facility] [place] [address] Echocardiogram Signed Patient: Suresh Vallejo MR#: [id number] 0 : 1975 Acct:[id number] Age/Sex: 49 / M ADM Date: 08/10/24 Loc: UL Room: Type: [facility] CLI Attending Dr: Daniel Gloria MD Ordering Provider: Daniel Gloria MD Date of Service: 08/10/2411/27/847 ECH/[facility] echo transthoracic: I10 - Essential (primary) hypertension Copies to: MD Ernesto English MD, [facility] Weight: 380 lb Performed By: ALICIA [...] max: LV V1 max PG: MR max saleem: RAP systole: 5.0 mmHg 182.3 cm/sec 4.5 [...] 08/10/24 0938 Signed By: Ernesto Ch MD, [facility] 08/10/24 1041 Normal [facility] A1C with Estimated Average G luon 07-13-2024 Glucose [Mass/Vol] 128 mg/dL Normal [facility] Comment on above: Result Comment: PERF ORMED BY: [place] [address] PATHOLOGIST RESIDENT PROGRAM SPECIALIST SBEASTIAN SIMMS M.D. Performed By: #### R SHANA DINERO, ALD #### [facility] , #### A1C WT eA, [facility] #### [facility] [address] A1C with Estimated Average G luOrdered By: Daniel Gloria on 07-13-2024 HbA1c (Bld) [Mass fraction] 6.1 % High 4.3-5.6 [facility] Comment on above: Result Comment: Incr eased risk for diabetes: 5.7 - 6.4 diabetes: >6.4 glycemic control for adults with diabetes: <7.0 Performed By: #### R KASHT UMETRA, ALD #### [facility] , #### A1C WTH eA, BMP #### [facility] [address] [place] [address] Increased risk for d iabetes: 5.7 - 6.4diabetes: >6.4glycemic control for adults with diabetes: <7.0 Aldosteroneon 07-13-2024 Aldosterone 8.6 ng/dL Normal 0.0-30.0 [facility] Comment on above: Result Comment: This test was developed and its performance characteristics determined by [facility]. It has not been cleared or approved by the Food and Drug Administration. Performed at: [facility] [address] [id number] [employer] Plant Operators: John Mandel MD, Phone: [phone] PERFORMED BY: [place] [address] PATHOLOGIST RESIDENT PROGRAM SPECIALIST SEBASTIAN SIMMS M.D. Performed By: #### R ENACT, UMETRA, ALD #### [facility] , #### A1C WTH eA, BMP #### [facility] [address] [place] [address] Basic Metabolic PanelOrdered By: Daniel Gloria on 07-13-2024 Anion gap [Moles/Vol] 11.8 mmol/L 6.0-15.0 [facility] Comment on above: Performed By: #### R ENACT, UMETRA, ALD #### [facility] , #### A1C WTH eA, BMP #### [facility] [address] [place] [address] Calcium [Mass/Vol] 8.8 mg/dL 8.6-10.3 [facility] Comment on above: Result Comment: PERF ORMED BY: [place] [address] PATHOLOGIST RESIDENT PROGRAM SPECIALIST SEBASTIAN SIMMS M.D. Performed By: #### R ENACT, UMETRA, ALD #### [facility] , #### A1C WTH eA, BMP #### [facility] [address] [place] [address] [place] Chloride [Moles/Vol] 103 mmol/L 98-107 [facility] Comment on above: Performed By: #### R ROSETTE, UMETRA, ALD #### [facility] , #### A1C WTH eA, BMP #### [facility] [address] CO2 [Moles/Vol] 27.0 mmol/L 21.0-31.0 [facility] Comment on above: Performed By: #### R ENACT, UMETRA, ALD #### [facility] , #### A1C WTH eA, BMP #### [facility] [address] Creatinine [Mass/Vol] 2.53 mg/dL High 0.70-1.30 [facility] Comment on above: Performed By: #### R KASHT, UMETRA, ALD #### [facility] , #### A1C WTH eA, BMP #### [facility] [address] Glucose [Mass/Vol] 119 mg/dL High 70-100 [facility] Comment on above: Result Comment: [place] om Glucose Reference Range is dependent on time and content of last meal. Glucose of more than 200 mg/dL in a nonstressed, ambulatory subject supports the diagnosis of Diabetes Mellitus. ADA recommended reference range Performed By: #### R ENACT, UMETRA, ALD #### [facility] , #### A1C WTH eA, BMP #### [facility] [address] [place] [address] ADA recommended refe rence rangeRandom Glucose Reference Range is dependent on time and content of last meal. Glucose of more than 200 mg/dL in a nonstressed, ambulatory subject supports the diagnosis of Diabetes Mellitus. Potassium [Moles/Vol] 3.8 mmol/L 3.5-5.1 [facility] Comment on above: Performed By: #### R ENACT, UMETRA, ALD #### [facility] , #### A1C WTH eA, BMP #### [facility] [address] Sodium [Moles/Vol] 138 mmol/L 136-145 [facility] Comment on above: Performed By: #### R ENACT, UMETRA, ALD #### [facility] , #### A1C WTH eA, BMP #### [facility] [address] [place] [address] Urea nitrogen [Mass/Vol] 40 mg/dL High 7-25 [facility] Comment on above: Performed By: #### R ENACT, UMETRA, ALD #### [facility] , #### A1C WTH eA, BMP #### [address] Basic Metabolic Panelon 07-02 Estimated GFR 29.915 mL/Min Normal [facility] Comment on above: Performed By: #### R ENACT, UMETRA, ALD #### [facility] , #### A1C WTH eA, BMP #### [facility] [address] [place] [address] Blood estimated average gluc ose determination by estimation from glycated hemoglobinOrdered By: Daniel Gloria on 07-13-2024 Average glucose Estimated from glycated hemoglobin (Bld) [Mass/Vol] Glucose mean value [Mass/volume] in Blood Estimated from glycated hemoglobin [facility] Average glucose Estimated from glycated hemoglobin (Bld) [Mass/Vol] 128 mg/dL [facility] Calcium [Mass/volume] in Ser um or PlasmaOrdered By: Daniel Gloria on 07-13-2024 Calcium [Mass/Vol] Calcium [Mass/volume ] in Serum or Plasma 8.6-10.3 [facility] Carbon dioxide, total [Moles /volume] in Serum or PlasmaOrdered By: Daniel Gloria on 07-13-2024 CO2 [Moles/Vol] Carbon dioxide, tota l [Moles/volume] in Serum or Plasma 21.0-31.0 [facility] Chloride [Moles/volume] in S brenton or PlasmaOrdered By: Daniel Gloria on 07-13-2024 Chloride [Moles/Vol] Chloride [Moles/vol ume] in Serum or Plasma 98-107 [facility] Creatinine [Mass/volume] in Serum or PlasmaOrdered By: Daniel Gloria on 07-13-2024 Creatinine [Mass/Vol] Creatinine [Mass/v olume] in Serum or Plasma High 0.70-1.30 [facility] Glucose [Mass/volume] in Ser um or PlasmaOrdered By: Daniel Gloria on 07-13-2024 Glucose [Mass/Vol] Glucose [Mass/volume ] in Serum or Plasma High 70-100 [facility] Comment on above: ADA recommended refe rence rangeRandom Glucose Reference Range is dependent on time and content of last meal. Glucose of more than 200 mg/dL in a nonstressed, ambulatory subject supports the diagnosis of Diabetes Mellitus. Hemoglobin A1c/Hemoglobin.to frandy in BloodOrdered By: Daniel Gloria on 07-13-2024 HbA1c (Bld) [Mass fraction] Hemoglobin A1c percentage High 4.3-5.6 [facility] Comment on above: Increased risk for d iabetes: 5.7 - 6.4diabetes: >6.4glycemic control for adults with diabetes: <7.0 Metanephrine Urine Randomon 07-13-2024 Creatinine, Random Ur 73.3 mg/dL Normal Not Estab. [facility] Comment on above: Performed By: #### R SHANA DINERO ALD #### [facility] , #### A1C WT eA, BMP #### [facility] [address] Metanephrine Random Urine 49 Normal Undefined [facility] Comment on above: Result Comment: This test was developed and its performance characteristics determined by [facility]. It has not been cleared or approved by the Food and Drug Administration. Performed By: #### R SHANA DINERO ALD #### [facility] , #### A1C WTH eA, BMP #### [address] Metanephrine/Creatinin e Ratio 0.4 Normal 0.0-1.0 [facility] Comment on above: Result Comment: Resu lt Units: ug/mg Creat Performed at: [address] [id number] [employer] Operators: John Mandel MD, Phone: [phone] Performed By: #### R ENACT, UMETRA, ALD #### [facility] , #### A1C WTH eA, BMP #### [address] Normetanephrine Random Urine 199 Normal Undefined [facility] Comment on above: Result Comment: This test was developed and its performance characteristics determined by [facility]. It has not been cleared or approved by the Food and Drug Administration. PERFORMED BY: [place] [address] PATHOLOGIST RESIDENT PROGRAM SPECIALIST SEBASTIAN SIMMS M.D. Performed By: #### R ENACT, UMETRA, ALD #### [facility] , #### A1C WTH eA, BMP #### [address] Metanephrines [Mass/volume] in 24 hour UrineOrdered By: Daniel Gloria on 07-13-2024 Metanephrines (24H U) [Mass/Vol] Metanephrines [Mass/volume] in 24 hour Urine Undefined [facility] Comment on above: This test was develo ped and its performance characteristicsdetermined by [facility]. It has not been cleared orapproved by the Food and Drug Administration. Metanephrines (24H U) [Mass/Vol] 49 ug/L Undefined [facility] Comment on above: This test was develo ped and its performance characteristicsdetermined by [facility]. It has not been cleared orapproved by the Food and Drug Administration. Metanephrines/Creatinine [Ma ss Ratio] in UrineOrdered By: Daniel Gloria on 07-13-2024 Metanephrines/Creatini ne (U) [Mass ratio] Metanephrines/Creatinine [Mass Ratio] in Urine 0.0-1.0 [facility] Comment on above: Result Units: ug/mg CreatPerformed at: [facility] [address] [id number] Director: John Mandel MD, Phone: [phone] Metanephrines/Creatini ne (U) [Mass ratio] 0.4 0.0-1.0 [facility] Comment on above: Result Units: ug/mg CreatPerformed at: [facility] [address] [id number] Director: John Mandel MD, Phone: [phone] No Panel InformationOrdered By: Daniel Gloria on 07-13-2024 Estimated GFR (CKD-EPI) 29.915 mL/Min [facility] Creatinine Clearance (Chem N/A [facility] Normetanephrine [Mass/volume ] in 24 hour UrineOrdered By: Daniel Gloria on 07-13-2024 Normetanephrine (24H U) [Mass/Vol] Normetanephrine [Mass/volume] in 24 hour Urine Undefined [facility] Comment on above: This test was develo ped and its performance characteristicsdetermined by [facility]. It has not been cleared orapproved by the Food and Drug Administration. Normetanephrine (24H U) [Mass/Vol] 199 ug/L Undefined [facility] Comment on above: This test was develo ped and its performance characteristicsdetermined by [facility]. It has not been cleared orapproved by the Food and Drug Administration. Potassium [Moles/volume] in Serum or PlasmaOrdered By: Daniel Gloria on 07-13-2024 Potassium [Moles/Vol] Potassium [Moles/v olume] in Serum or Plasma 3.5-5.1 [facility] Renin Activityon 07-13-2024 Renin Activity 0.247 Normal 0.167-5.38 0 [facility] Comment on above: Result Comment: This test was developed and its performance characteristics determined by [facility]. It has not been cleared or approved by the Food and Drug Administration. Performed at: [address] [id number] [employer] Operators: John Mandel MD, Phone: [phone] PERFORMED BY: [place] [address] PATHOLOGIST RESIDENT PROGRAM SPECIALIST SEBASTIAN SIMMS M.D. Performed By: #### R ENACT, UMETRA, ALD #### [facility] , #### A1C WTH eA, BMP #### [address] Renin activityOrdered By: Trino Gloria on 07-13-2024 Renin (P) [Catalytic activity/Vol] Renin activity 0.167-5.38 0 [facility] Comment on above: This test was develo ped and its performance characteristicsdetermined by [facility]. It has not been cleared orapproved by the Food and Drug Administration.Performed at: [address] [id number] Director: John Mandel MD, Phone: [phone] Renin (P) [Catalytic activity/Vol] 0.247 ng/mL/hr 0.167-5.38 0 [facility] Comment on above: This test was develo ped and its performance characteristicsdetermined by [facility]. It has not been cleared orapproved by the Food and Drug Administration.Performed at: [address] [id number] Director: John Mandel MD, Phone: [phone] Serum or plasma aldosterone measurement (mass/volume)Ordered By: Daniel Gloria on 07-13-2024 Aldosterone [Mass/Vol] Serum or plasma a ldosterone measurement (mass/volume) 0.0-30.0 [facility] Comment on above: This test was develo ped and its performance characteristicsdetermined by [facility]. It has not been cleared orapproved by the Food and Drug Administration.Performed at: [address] [id number] Director: John Mandel MD, Phone: [phone] Aldosterone [Mass/Vol] 8.6 ng/dL 0.0-30.0 [facility] Comment on above: This test was develo ped and its performance characteristicsdetermined by [facility]. It has not been cleared orapproved by the Food and Drug Administration.Performed at: [facility] [address] [id number] Director: John Mandel MD, Phone: [phone] Serum or plasma anion gap de terminationOrdered By: Daniel Gloria on 07-13-2024 Anion gap [Moles/Vol] Serum or plasma an ion gap determination 6.0-15.0 [facility] Sodium [Moles/volume] in Ser um or PlasmaOrdered By: Daniel Gloria on 07-13-2024 Sodium [Moles/Vol] Sodium [Moles/volume ] in Serum or Plasma 136-145 [facility] Urea nitrogen [Mass/volume] in Serum or PlasmaOrdered By: Daniel Gloria on 07-13-2024 Urea nitrogen [Mass/Vol] Urea nitrogen [Mass/volume] in Serum or Plasma High 7-25 [facility] Urine creatinine measurement (mass/volume)Ordered By: Daniel Gloria on 07-13-2024 Creatinine (U) [Mass/Vol] Creatinine [Mass/volume] in Urine Not Estab. [facility] Creatinine (U) [Mass/Vol] 73.3 mg/dL Not Estab. [facility] FPG ECG *CARDIOLOGY ONLY*on 07-08-2024 FPG ECG *CARDIOLOGY ONLY* [facility] [place] [address] [place] [address] Electrocardiograph Report Signed Patient: Suresh Vallejo MR#: [id number] 0 : 1975 Acct:[id number] Age/Sex: 49 / M ADM Date: 07/08/24 Loc: EKGCARDIO Room: Type: [facility] Attending Dr: Daniel Gloria MD Ordering Provider: [...] previous ECGs available Confirmed by Daniel Gloria ([id number]) on 07/08/2024 4:29:16 PM Referred By: Electronically Signed By: Daniel Gloria Transcribed By: MUS Signed By Daniel Gloria MD 07/08/24 4778 Normal [facility] Basophils Auto (Bld) [#/Vol] on 02-09-2024 Basophils (Bld) [#/Vol] Automated basophil count 0.0-0.1 [facility] Basophils/100 WBC Auto (Bld) on 02-09-2024 Basophils/100 WBC (Bld) Automated basophil % 0.2-2.0 [facility] Eosinophils/100 WBC Auto (Bl d)on 02-09-2024 Eosinophils/100 WBC (Bld) Automated eosinophil % 0.9-7.0 [facility] Erythrocyte distribution wid th Auto (RBC) [Ratio]on 02-09-2024 Erythrocyte distribution width (RBC) [Ratio] Erythrocyte distribution width [Ratio] by Automated count 11.0-15.0 [facility] Estimated glomerular filtrat ion rate (GFR) non- Americanon 02-09-2024 GFR/1.73 sq M.predicted among non-blacks MDRD (S/P/Bld) [Vol rate/Area] Estimated glomerular filtration rate (GFR) non- Low >=60 mL/min/1.7 3m 2 [facility] Hematocrit Auto (Bld) [Volum e fraction]on 02-09-2024 Hematocrit (Bld) [Volume fraction] Hematocrit [Volume Fraction] of Blood by Automated count Low 42.0-54.0 [facility] Hemoglobin [Mass/volume] in Bloodon 02-09-2024 Hemoglobin (Bld) [Mass/Vol] Hemoglobin [Mass/volume] in Blood Low 14.0-18.0 [facility] Laboratory - Chemistry and C hemistry - challengeon 02-09-2024 Calcium [Mass/Vol] 8.6 mg/dL 8.5-10.1 [facility] Chloride [Moles/Vol] 109 mmol/L High 98-107 [facility] CO2 [Moles/Vol] 24.4 mmol/L 21.0-32.0 [facility] Creatinine [Mass/Vol] 2.50 mg/dL High 0.70-1.30 [facility] GFR/1.73 sq M.predicted MDRD (S/P/Bld) [Vol rate/Area] 33 mL/min/{1.73_m2} Low >=60 mL/min/1.7 3m 2 [facility] Glucose [Mass/Vol] 81 mg/dL 74-106 [facility] Natriuretic peptide B (Bld) [Mass/Vol] 1600.0 pg/mL Critically high <=900.0 [facility] Comment on above: RESULTS CALLED TO LAZ VELASQUEZ RN @BY Kim [place] [id number] Potassium [Moles/Vol] 4.3 mmol/L 3.5-5.1 [facility] Sodium [Moles/Vol] 144 mmol/L 136-145 [facility] Urea nitrogen [Mass/Vol] 38.0 mg/dL High 7.0-18.0 [facility] Urea nitrogen/Creatinine [Mass ratio] 15.2 mg/mg [facility] Laboratory - Hematology and Cell countson 02-09-2024 Immature granulocytes/100 WBC (Bld) 0.1 % 0.0-0.5 [facility] Leukocytes [#/volume] correc miguel for nucleated erythrocytes in Blood by Automated counon 02-09-2024 WBC corrected for nucl RBC Auto (Bld) [#/Vol] Leukocytes [#/volume] corrected for nucleated erythrocytes in Blood by Automated coun 4.0-11.0 [facility] Lymphocytes Auto (Bld) [#/Vo l]on 02-09-2024 Lymphocytes (Bld) [#/Vol] Lymphocytes [#/volume] in Blood by Automated count 1.2-3.8 [facility] Lymphocytes/100 WBC Auto (Bl d)on 02-09-2024 Lymphocytes/100 WBC (Bld) Lymphocytes/100 leukocytes in Blood by Automated count 20.5-60.0 [facility] MCH Auto (RBC) [Entitic mass ]on 02-09-2024 MCH (RBC) [Entitic mass] MCH [Entitic mass] by Automated count 25.9-34.0 [facility] MCHC Auto (RBC) [Mass/Vol]on 02-09-2024 MCHC (RBC) [Mass/Vol] MCHC [Mass/volume] by Automated count 29.9-35.2 [facility] MCV Auto (RBC) [Entitic vol] on 02-09-2024 MCV (RBC) [Entitic vol] MCV [Entitic volume] by Automated count 80.0-94.0 [facility] Monocytes Auto (Bld) [#/Vol] on 02-09-2024 Monocytes (Bld) [#/Vol] Automated blood monocyte count 0.3-0.8 [facility] Monocytes/100 WBC Auto (Bld) on 02-09-2024 Monocytes/100 WBC (Bld) Automated monocyte % 1.7-12.0 [facility] Neutrophils Auto (Bld) [#/Vo l]on 02-09-2024 Neutrophils (Bld) [#/Vol] Neutrophils [#/volume] in Blood by Automated count 1.4-6.5 [facility] Neutrophils/100 WBC Auto (Bl d)on 02-09-2024 Neutrophils/100 WBC (Bld) Automated neutrophil % 43.0-75.0 [facility] No Panel Informationon 02-08 Eosinophils # (Auto) 0.4 10 3/uL 0.0-0.7 [facility] Immature Granulocyte # (Auto) 0.01 10 3/uL 0.00-0.03 [facility] Platelet mean volume Auto (B ld) [Entitic vol]on 02-09-2024 Platelet mean volume (Bld) [Entitic vol] Platelet mean volume [Entitic volume] in Blood by Automated count 9.5-13.5 [facility] Platelets Auto (Bld) [#/Vol] on 02-09-2024 Platelets (Bld) [#/Vol] Platelets [#/volume] in Blood by Automated count 150-450 [facility] RBC Auto (Bld) [#/Vol]on RBC (Bld) [#/Vol] Erythrocytes [#/volu me] in Blood by Automated count Low 4.70-6.10 [facility] Serum or plasma anion gap de terminationon 02-09-2024 Anion gap [Moles/Vol] Serum or plasma an ion gap determination [facility] Activated partial thrombopla stin time (aPTT) in platelet poor plasma by coagulation aon 02-08-2024 aPTT Coag (PPP) [Time] Activated partial thromboplastin time (aPTT) in platelet poor plasma by coagulation a 22.3-36.2 [facility] Basophils Auto (Bld) [#/Vol] on 02-08-2024 Basophils (Bld) [#/Vol] Automated basophil count 0.0-0.1 [facility] Basophils/100 WBC Auto (Bld) on 02-08-2024 Basophils/100 WBC (Bld) Automated basophil % 0.2-2.0 [facility] Eosinophils/100 WBC Auto (Bl d)on 02-08-2024 Eosinophils/100 WBC (Bld) Automated eosinophil % 0.9-7.0 [facility] Erythrocyte distribution wid th Auto (RBC) [Ratio]on 02-08-2024 Erythrocyte distribution width (RBC) [Ratio] Erythrocyte distribution width [Ratio] by Automated count 11.0-15.0 [facility] Estimated glomerular filtrat ion rate (GFR) non- Americanon 02-08-2024 GFR/1.73 sq M.predicted among non-blacks MDRD (S/P/Bld) [Vol rate/Area] Estimated glomerular filtration rate (GFR) non- Low >=60 mL/min/1.7 3m 2 [facility] Globulin Calc (S) [Mass/Vol] on 02-08-2024 Globulin (S) [Mass/Vol] Serum globulin measurement by calculation (mass/volume) [facility] Hematocrit Auto (Bld) [Volum e fraction]on 02-08-2024 Hematocrit (Bld) [Volume fraction] Hematocrit [Volume Fraction] of Blood by Automated count Low 42.0-54.0 [facility] Hemoglobin [Mass/volume] in Bloodon 02-08-2024 Hemoglobin (Bld) [Mass/Vol] Hemoglobin [Mass/volume] in Blood Low 14.0-18.0 [facility] INR in Platelet poor plasma by Coagulation assayon 02-08-2024 INR Coag (PPP) [Relative time] INR in Platelet poor plasma by Coagulation assay [facility] Comment on above: DESIRED INR:2.0-3.0 CONDITIONS NOT LISTED BELOW2.5-3.5 FOR PROSTHETIC HEART VALVE REPLACEMENT2.5-3.5 RECURRENT THROMBOSIS Laboratory - Chemistry and C hemistry - challengeon 02-08-2024 Albumin [Mass/Vol] 2.6 g/dL Low 3.4-5.0 [facility] ALP [Catalytic activity/Vol] 98 U/L 46-116 [facility] ALT [Catalytic activity/Vol] 26 U/L 16-63 [facility] AST [Catalytic activity/Vol] 19 U/L 15-37 [facility] Bilirubin [Mass/Vol] 0.6 mg/dL 0.2-1.0 [facility] Calcium [Mass/Vol] 8.8 mg/dL 8.5-10.1 [facility] [facility] Chloride [Moles/Vol] 109 mmol/L High 98-107 [facility] CO2 [Moles/Vol] 23.6 mmol/L 21.0-32.0 [facility] Creatinine [Mass/Vol] 2.55 mg/dL High 0.70-1.30 [facility] GFR/1.73 sq M.predicted MDRD (S/P/Bld) [Vol rate/Area] 32 mL/min/{1.73_m2} Low >=60 mL/min/1.7 3m 2 [facility] Glucose [Mass/Vol] 82 mg/dL 74-106 [facility] Magnesium [Mass/Vol] 1.9 mg/dL 1.8-2.4 [facility] Natriuretic peptide B (Bld) [Mass/Vol] 4053.0 pg/mL Critically high <=900.0 [facility] Comment on above: RESULTS CALLED TO DONALDO SANTO RN @BY Kim Madrid at 0731 Potassium [Moles/Vol] 3.9 mmol/L 3.5-5.1 [facility] Protein [Mass/Vol] 7.1 g/dL 6.4-8.2 [facility] Sodium [Moles/Vol] 143 mmol/L 136-145 [facility] T4 [Mass/Vol] 6.90 ug/dL 4.50-12.10 [facility] TSH Qn 2.921 m[IU]/L 0.358-3.74 0 [facility] Urea nitrogen [Mass/Vol] 36.0 mg/dL High 7.0-18.0 [facility] Urea nitrogen/Creatinine [Mass ratio] 14.1 mg/mg [facility] Laboratory - Hematology and Cell countson 02-08-2024 Immature granulocytes/100 WBC (Bld) 0.1 % 0.0-0.5 [facility] Leukocytes [#/volume] correc miguel for nucleated erythrocytes in Blood by Automated counon 02-08-2024 WBC corrected for nucl RBC Auto (Bld) [#/Vol] Leukocytes [#/volume] corrected for nucleated erythrocytes in Blood by Automated coun 4.0-11.0 [facility] Lymphocytes Auto (Bld) [#/Vo l]on 02-08-2024 Lymphocytes (Bld) [#/Vol] Lymphocytes [#/volume] in Blood by Automated count 1.2-3.8 [facility] Lymphocytes/100 WBC Auto (Bl d)on 02-08-2024 Lymphocytes/100 WBC (Bld) Lymphocytes/100 leukocytes in Blood by Automated count 20.5-60.0 [facility] MCH Auto (RBC) [Entitic mass ]on 02-08-2024 MCH (RBC) [Entitic mass] MCH [Entitic mass] by Automated count 25.9-34.0 [facility] MCHC Auto (RBC) [Mass/Vol]on 02-08-2024 MCHC (RBC) [Mass/Vol] MCHC [Mass/volume] by Automated count 29.9-35.2 [facility] MCV Auto (RBC) [Entitic vol] on 02-08-2024 MCV (RBC) [Entitic vol] MCV [Entitic volume] by Automated count 80.0-94.0 [facility] Monocytes Auto (Bld) [#/Vol] on 02-08-2024 Monocytes (Bld) [#/Vol] Automated blood monocyte count 0.3-0.8 [facility] Monocytes/100 WBC Auto (Bld) on 02-08-2024 Monocytes/100 WBC (Bld) Automated monocyte % 1.7-12.0 [facility] Neutrophils Auto (Bld) [#/Vo l]on 02-08-2024 Neutrophils (Bld) [#/Vol] Neutrophils [#/volume] in Blood by Automated count 1.4-6.5 [facility] Neutrophils/100 WBC Auto (Bl d)on 02-08-2024 Neutrophils/100 WBC (Bld) Automated neutrophil % 43.0-75.0 [facility] No Panel Informationon 02-07 Eosinophils # (Auto) 0.3 10 3/uL 0.0-0.7 [facility] Immature Granulocyte # (Auto) 0.01 10 3/uL 0.00-0.03 [facility] Phosphorus Level 4.0 mg/dL 2.6-4.7 [facility] Platelet mean volume Auto (B ld) [Entitic vol]on 02-08-2024 Platelet mean volume (Bld) [Entitic vol] Platelet mean volume [Entitic volume] in Blood by Automated count 9.5-13.5 [facility] Platelets Auto (Bld) [#/Vol] on 02-08-2024 Platelets (Bld) [#/Vol] Platelets [#/volume] in Blood by Automated count 150-450 [facility] Prothrombin time (PT)on PT Coag (PPP) [Time] Prothrombin time (PT) 9.0- 11.6 [facility] RBC Auto (Bld) [#/Vol]on RBC (Bld) [#/Vol] Erythrocytes [#/volu me] in Blood by Automated count Low 4.70-6.10 [facility] Serum or plasma albumin/glob ulin mass ratioon 02-08-2024 Albumin/Globulin [Mass ratio] Serum or plasma albumin/globulin mass ratio [facility] Serum or plasma anion gap de terminationon 02-08-2024 Anion gap [Moles/Vol] Serum or plasma an ion gap determination [facility] Buprenorphine [Presence] in Urineon 02-07-2024 Buprenorphine Ql (U) Buprenorphine [Pres ence] in Urine NEGATIVE [facility] Comment on above: DRUG CLASS TEST SYST EM CUT-OFF CONCENTRATIONS ARE ASFOLLOWS:AMP (Amphetamine): 500 ng/mLBAR (Barbiturates): 200 ng/mLBZO (Benzodiazepines): 150 ng/mLBUP (Buprenorphine): 10 ng/mLCOC (Cocaine): 150 ng/mLmAMP (Methamphetamine): 500 ng/mLMTD (Methadone): 200 ng/mLOPI (Opiates): 100 ng/mLOXY (Oxycodone): 100 ng/mLPCP (Phencyclidine): 25 ng/mLTHC (Cannabinoids): 50 ng/mLTCA (Trycyclic Antidepressants): 300 ng/mL Laboratory - Chemistry and C hemistry - challengeon 02-07-2024 Bilirubin Ql (U) Negative NEGATIVE [facility] Glucose (U) [Mass/Vol] Negative NEGATIVE [facility] Ketones Ql (U) Negative NEGATIVE [facility] pH (U) 6.5 [pH] 5.0-9.0 [facility] Specific gravity (U) [Rel density] 1.015 1.005-1.02 5 [facility] Urobilinogen Qn (U) 0.2 {Abiola'U}/dL 0.2-1.0 [facility] Magnesium [Mass/Vol] 2.1 mg/dL 1.8-2.4 [facility] Natriuretic peptide B (Bld) [Mass/Vol] 3918.0 pg/mL Critically high <=900.0 [facility] Comment on above: RESULTS CALLED TO RICHIE Tang @BY Rogelio [place] 1934 Laboratory - Drug toxicology on 02-07-2024 Amphetamines Ql (U) Negative NEGATIVE [facility] Benzodiazepines Ql (U) Negative NEGATIVE [facility] Cocaine Ql (U) Negative NEGATIVE [facility] Opiates Ql (U) Negative NEGATIVE [facility] Phencyclidine Ql (U) Negative NEGATIVE [facility] Laboratory - Specimen inform ationon 02-07-2024 Appearance (U) CLEAR CLEAR [facility] Color (U) LT. YELLOW YELLOW [facility] Laboratory - Urinalysison Leukocyte esterase Test strip Ql (U) Negative NEGATIVE [facility] Mucus Ql (Urine sed) NONE SEEN NONE SEEN [facility] Nitrite Ql (U) Negative NEGATIVE [facility] Protein Ql (U) >=300 mg/dL Abnormal NEG/TRACE [facility] Methadone [Presence] in Urin e by Screen methodon 02-07-2024 Methadone Screen Ql (U) Methadone [Presence] in Urine by Screen method NEGATIVE [facility] No Panel Informationon 02-06 Urine Bacteria TRACE #/HPF Abnormal NONE SEEN [facility] Urine Barbiturates Screen Negative NEGATIVE [facility] Urine Marijuana (THC) Screen Negative NEGATIVE [facility] Urine Methamphetamines Screen Negative NEGATIVE [facility] Urine Occult Blood SMALL Abnormal NEGATIVE [facility] Urine Other Casts NONE SEEN #/LPF NONE SEEN [facility] Urine Other Crystals None Seen #/HPF None Seen [facility] Urine RBC 0-2 #/HPF 0-2 [facility] Urine Squamous Epithelial Cells NONE SEEN #/LPF NONE/RARE [facility] Urine WBC 0-2 #/HPF Abnormal NONE SEEN [facility] Troponin I High Sensitivity 68.6 pg/mL 4.0-76.1 [facility] Comment on above: CUT-OFF POINTS HAVE BEEN [...] (U) [Mass/Vol] Urine tricyclic antidepressant measurement NEGATIVE [facility] oxyCODONE+oxyMORphone [Prese nce] in Urine by Screen methodon 02-07-2024 oxyCODONE+oxyMORphone Screen Ql (U) oxyCODONE+oxyMORphone [Presence] in Urine by Screen method NEGATIVE [facility] US venous duplex LE BIon US venous duplex LE BI [facility] [place] [address] [place] [address] Ultrasound Report Signed Patient: Suresh Vallejo MR#: [id number] 0 : 1975 Acct:[id number] Age/Sex: 49 / M ADM Date: 02/05/24 Loc: Room: Type: [facility] Attending Dr: Edvin Hastings MD Ordering [...] Edvin Hastings MD02/06/2024 4:14 PM [facility] Tech: Oksana Lucia Transcribed By: LAKSHMI 02/06/24 1614 Dictated By: Edvin Hastings MD 02/06/24 1613 Signed By: 02/06/24 161 Normal [facility] US Lower Extremity Venous [...] MD Transcribed by: MARTINEZ Technologist: AARON [facility] US Lower Extremity Venous Du plex [...] MD Transcribed by: MARTINEZ Technologist: AARON [facility] CHEMISTRYOrdered By: SYSTEM SYSTEM on 10-10-2022 [...] 0.0-0.1 [facility] Comment on above: Performed By: #### C BC #### [facility] Laboratory [address] [address] [address] Aubrey Tatum Basophils/100 WBC (Bld) 0.8 % Normal 0.2-2.0 [facility] Comment on above: Performed By: #### C BC #### [facility] Laboratory [address] [place] [address] Dr. Aubrey Tatum EO # 0.1 103/ul Normal 0.0-0.7 [facility] Comment on above: Performed By: #### C BC #### [facility] Laboratory [address] [place] [address] Dr. Aubrey Tatum Eosinophils/100 WBC (Bld) 1.3 % Normal 0.9-7.0 [facility] Comment on above: Performed By: #### C BC #### [facility] Laboratory [address] [place] [address] Dr. Aubrey Tatum Erythrocyte distribution width (RBC) [Ratio] 13.6 % Normal 11.0-15.0 [facility] Comment on above: Performed By: #### C BC #### [facility] Laboratory [address] [place] [address] Dr. Aubrey Tatum Hematocrit (Bld) [Volume fraction] 41.0 % Critically low 42.0-54.0 [facility] Comment on above: Performed By: #### C BC #### [facility] Laboratory [address] [place] [address] Dr. Aubrey Tatum Hemoglobin (Bld) [Mass/Vol] 13.0 g/dL Critically low 14.0-18.0 [facility] Comment on above: Performed By: #### C BC #### [facility] Laboratory [address] [place] [address] Dr. Aubrey Tatum IG # 0.02 10e3/ul Normal 0.00-0.03 [facility] Comment on above: Performed By: #### C BC #### [facility] Laboratory [address] [place] [address] Dr. Aubrey Tatum IG % 0.2 % Normal 0.0-0.5 [facility] Comment on above: Performed By: #### C BC #### [facility] Laboratory [address] [place] [address] Dr. Aubrey Tatum LYMPH # 2.0 103/ul Normal 1.2-3.8 [facility] Comment on above: Performed By: #### C BC #### [facility] Laboratory [address] [place] [address] Dr. Aubrey Tatum Lymphocytes/100 WBC (Bld) 21.8 % Normal 20.5-60.0 [facility] Comment on above: Performed By: #### C BC #### [facility] Laboratory [address] [place] [address] Dr. Aubrey Tatum MANUAL DIFF REQ NO Normal [facility] Comment on above: Performed By: #### C BC #### [facility] Laboratory [address] [place] [address] Dr. Aubrey Tatum MCH (RBC) [Entitic mass] 28.1 pg Normal 25.9-34.0 [facility] Comment on above: Performed By: #### C BC #### [facility] Laboratory [address] [place] [address] Dr. Aubrey Tatum MCHC (RBC) [Mass/Vol] 31.7 g/dL Normal 29.9-35.2 [facility] Comment on above: Performed By: #### C BC #### [facility] Laboratory [address] [place] [address] Dr. Aubrey Tatum MCV (RBC) [Entitic vol] 88.7 fL Normal 80.0-94.0 [facility] Comment on above: Performed By: #### C BC #### [facility] Laboratory [address] [place] [address] Dr. Aubrey Tatum MONO # 0.5 103/ul Normal 0.3-0.8 [facility] Comment on above: Performed By: #### C BC #### [facility] Laboratory [address] [place] [address] Dr. Aubrey Tatum Monocytes/100 WBC (Bld) 5.7 % Normal 1.7-12.0 [facility] Comment on above: Performed By: #### C BC #### [facility] Laboratory [address] [place] [address] Dr. Aubrey Tatum NEUT # 6.4 103/ul Normal 1.4-6.5 [facility] Comment on above: Performed By: #### C BC #### [facility] Laboratory [address] [address] [address] Aubrey Tatum Neutrophils/100 WBC (Bld) 70.2 % Normal 43.0-75.0 [facility] Comment on above: Performed By: #### C BC #### [facility] Laboratory [address] [place] [address] Dr. Aubrey Tatum Platelet mean volume (Bld) [Entitic vol] 9.6 fL Normal 9.5-13.5 [facility] Comment on above: Performed By: #### C BC #### [facility] Laboratory [address] [place] [address] Dr. Aubrey Tatum PLT 334 103/ul Normal 150-450 [facility] Comment on above: Performed By: #### C BC #### [facility] Laboratory [address] [place] [address] Dr. Aubrey Tatum RBC 4.62 106/ul Critically low 4.70-6.10 [facility] Comment on above: Performed By: #### C BC #### [facility] Laboratory [address] [place] [address] Dr. Aubrey Tatum WBC 9.1 103/ul Normal 4.0-11.0 [facility] Comment on above: Performed By: #### C BC #### [facility] Laboratory [address] [place] [address] Dr. Aubrey Tatum FREE T3on 02-07-2021 FREE T3 2.57 pg/mlL Critically low 2.77-5.27 [facility] Comment on above: Performed By: #### L IPID, CMP, FT3, TSH #### [facility] Laboratory [address] [place] [address] Dr. Aubrey Tatum FREE T4on 02-07-2021 Free T4 [Mass/Vol] 0.93 ng/dL Normal 0.78-2.19 [facility] Comment on above: Performed By: #### F T4 #### [facility] Laboratory [address] [place] [address] Dr. Aubrey Tatum LIPID PROFILEon 02-07-2021 CHOL-HDL RATIO NORM SEE BELOW Normal [facility] Comment on above: Result Comment: 3.3 - 4.4 LOW RISK 4.4 - 7.1 AVERAGE RISK 7.1 - 11.0 MODERATE RISK >11.0 HIGH RISK Performed By: #### L IPID, CMP, FT3, TSH #### [facility] Laboratory [address] [address] [address] Aubrey Tatum Cholesterol [Mass/Vol] 155 mg/dL Normal <=200 Th e [facility] Comment on above: Performed By: #### L IPID, CMP, FT3, TSH #### [facility] Laboratory [address] [address] [address] Aubrey Tatum Cholesterol in HDL [Mass/Vol] 51 mg/dL Normal [facility] Comment on above: Performed By: #### L IPID, CMP, FT3, TSH #### [facility] Laboratory [address] [address] [address] Aubrey Tatum Cholesterol in LDL [Mass/Vol] 94.2 mg/dL Normal [facility] Comment on above: Performed By: #### L IPID, CMP, FT3, TSH #### [facility] Laboratory [address] [address] [address] Aubrey Tatum Cholesterol.total/Chol esterol in HDL [Mass ratio] 3.0 {ratio} Normal [facility] Comment on above: Performed By: #### L IPID, CMP, FT3, TSH #### [facility] Laboratory [address] [address] [address] Aubrey Tatum HDL NORMAL > or = 60 mg/dl - LO W CARDIOVASCULAR RISK <40 mg/dl - HIGH CARDIOVASCULAR RISK Normal [facility] Comment on above: Performed By: #### L IPID, CMP, FT3, TSH #### [facility] Laboratory [address] [address] [address] Aubrey Tatum LDL CALC NORMAL SEE BELOW Normal [facility] Comment on above: Result Comment: <100 mg/dl OPTIMAL 100 - 129 mg/dl NEAR OR ABOVE OPTIMAL 130 - 159 mg/dl BORDERLINE HIGH 160 - 189 mg/dl HIGH >190 mg/dl VERY HIGH Performed By: #### L IPID, CMP, FT3, TSH #### [facility] Laboratory [address] [place] [address] Dr. Aubrey Tatum Triglyceride [Mass/Vol] 49 mg/dL Normal <=150 [facility] Comment on above: Performed By: #### L IPID, CMP, FT3, TSH #### [facility] Laboratory [address] [address] [address] Aubrey Tatum VLDL CALC 9.8 mg/dL Normal [facility] Comment on above: Performed By: #### L IPID, CMP, FT3, TSH #### [facility] Laboratory [address] [place] [address] Dr. Aubrey Tatum PROF 14(COMP METB)on 021 Albumin [Mass/Vol] 3.1 g/dL Critically low 3.5-5.0 [facility] Comment on above: Performed By: #### L IPID, CMP, FT3, TSH #### [facility] Laboratory [address] [place] [address] Dr. Aubrey Tatum Albumin/Globulin [Mass ratio] 0.7 {ratio} Normal [facility] Comment on above: Performed By: #### L IPID, CMP, FT3, TSH #### [facility] Laboratory [address] [place] [address] Dr. Aubrey Tatum ALP [Catalytic activity/Vol] 86 U/L Normal 38-126 [facility] Comment on above: Performed By: #### L IPID, CMP, FT3, TSH #### [facility] Laboratory [address] [place] [address] Dr. Aubrey Tatum ALT [Catalytic activity/Vol] 45 U/L Normal 21-72 [facility] Comment on above: Performed By: #### L IPID, CMP, FT3, TSH #### [facility] Laboratory [address] [place] [address] Dr. Aubrey Tatum Anion gap [Moles/Vol] 11.7 mmol/L Normal [facility] Comment on above: Performed By: #### L IPID, CMP, FT3, TSH #### [facility] Laboratory [address] [place] [address] Dr. Aubrey Tatum AST [Catalytic activity/Vol] 26 U/L Normal 17-59 [facility] Comment on above: Performed By: #### L IPID, CMP, FT3, TSH #### [facility] Laboratory [address] [address] [address] Aubrey Tatum Bilirubin [Mass/Vol] 0.4 mg/dL Normal 0.2-1.3 [facility] Comment on above: Performed By: #### L IPID, CMP, FT3, TSH #### [facility] Laboratory [address] [address] [address] Aubrey Tatum Calcium [Mass/Vol] 9.0 mg/dL Normal 8.4-10.2 [facility] Comment on above: Performed By: #### L IPID, CMP, FT3, TSH #### [facility] Laboratory [address] [address] [address] Aubrey Tatum Chloride [Moles/Vol] 103 mmol/L Normal 98-107 [facility] Comment on above: Performed By: #### L IPID, CMP, FT3, TSH #### [facility] Laboratory [address] [address] [address] Aubrey Tatum CO2 [Moles/Vol] 27.9 mmol/L Normal 22.0-30.0 [facility] Comment on above: Performed By: #### L IPID, CMP, FT3, TSH #### [facility] Laboratory [address] [address] [address] Aubrey Tatum Creatinine [Mass/Vol] 1.31 mg/dL Critically high 0.66-1.25 [facility] Comment on above: Performed By: #### L IPID, CMP, FT3, TSH #### [facility] Laboratory [address] [address] [address] Aubrey Tatum EGFR-AF [place]ORE[place] >60 Normal >=60 [facility] Comment on above: Performed By: #### L IPID, CMP, FT3, TSH #### [facility] Laboratory [address] [address] [address] Aubrey Tatum EGFR-NON AF [place]ORE[place] 58 mL/min/1.73m2 Critically low >=60 [facility] Comment on above: Performed By: #### L IPID, CMP, FT3, TSH #### [facility] Laboratory [address] [address] [address] Aubrey Tatum Globulin (S) [Mass/Vol] 4.5 g/dL Normal [facility] Comment on above: Performed By: #### L IPID, CMP, FT3, TSH #### [facility] Laboratory [address] [place] [address] Dr. Aubrey Tatum Glucose [Mass/Vol] 85 mg/dL Normal 74-106 [facility] Comment on above: Performed By: #### L IPID, CMP, FT3, TSH #### [facility] Laboratory [address] [place] [address] Dr. Aubrey Tatum Potassium [Moles/Vol] 3.6 mmol/L Normal 3.4-5.0 [facility] Comment on above: Performed By: #### L IPID, CMP, FT3, TSH #### [facility] Laboratory [address] [place] [address] Dr. Aubrey Tatum Protein [Mass/Vol] 7.6 g/dL Normal 6.1-8.2 [facility] Comment on above: Performed By: #### L IPID, CMP, FT3, TSH #### [facility] Laboratory [address] [place] [address] Dr. Aubrey Tatum Sodium [Moles/Vol] 139 mmol/L Normal 137-145 [facility] Comment on above: Performed By: #### L IPID, CMP, FT3, TSH #### [facility] Laboratory [address] [place] [address] Dr. Aubrey Tatum Urea nitrogen [Mass/Vol] 26.0 mg/dL Critically high 9.0-20.0 [facility] Comment on above: Performed By: #### L IPID, CMP, FT3, TSH #### [facility] Laboratory [address] [place] [address] Dr. Aubrey Tatum Urea nitrogen/Creatinine [Mass ratio] 19.8 mg/mg Normal [facility] Comment on above: Performed By: #### L IPID, CMP, FT3, TSH #### [facility] Laboratory [address] [place], [place] [address] Dr. Aubrey Tatum TSHon 02-07-2021 TSH 2.234 uIU/mL Normal 0.470-4.68 0 [facility] Comment on above: Performed By: #### L IPID, CMP, FT3, TSH #### [facility] Laboratory [address] [place], [place] [address] Dr. Aubrey Tatum TSH RANGE SEE BELOW Normal [facility] Comment on above: Result Comment: <0.3 4 UIU/ml HYPERTHYROID 0.34-5.60 UIU/ml EUTHYROID >5.60 UIU/ml HYPOTHYROID Performed By: #### L IPID, CMP, FT3, TSH #### [facility] Laboratory [address] [address] [address] Aubrey Tatum Vital Signs Date Time Vital Sign Value Performing Clinician Facility 09-24-2024 15:38-0400 Body temperature 97.5 [degF] Juvencio Rosa DO Work Phone: [facility] 09-24-2024 15:38-0400 Diastolic blood pressure 98 mm[Hg] Juvencio Rosa DO Work Phone: [facility] 09-24-2024 15:38-0400 Heart rate 78 /min Juvencio Rosa DO Work Phone: [facility] 09-24-2024 15:38-0400 SaO2% (BldA) [Mass fraction] 97 % Juvencio Rosa DO Work Phone: [facility] 09-24-2024 15:38-0400 Systolic blood pressure 190 mm[Hg] Juvencio Rosa DO Work Phone: [facility] 09-17-2024 15:37-0400 Body height 177.8 cm Juvencio Rosa DO Work Phone: [facility] 09-17-2024 15:37-0400 Body mass index (BMI) [Ratio] 55.1 kg/m2 Juvencio Rosa DO Work Phone: [facility] 09-17-2024 15:37-0400 Body temperature 99 [degF] Juvencio Rosa DO Work Phone: [facility] 09-17-2024 15:37-0400 Body weight 174.34 kg Juvencio Rosa DO Work Phone: [facility] 09-17-2024 15:37-0400 Diastolic blood pressure 100 mm[Hg] Juvencio Rosa DO Work Phone: [facility] 09-17-2024 15:37-0400 Heart rate 74 /min Juvencio Rosa DO Work Phone: [facility] 09-17-2024 15:37-0400 Respiratory rate 18 /min Juvencio Rosa DO Work Phone: [facility] 09-17-2024 15:37-0400 SaO2% (BldA) [Mass fraction] 96 % Juvencio Rosa DO Work Phone: [facility] 09-17-2024 15:37-0400 Systolic blood pressure 152 mm[Hg] Juvencio Rosa DO Work Phone: [facility] 07-08-2024 15:21-0400 Body height 177.8 cm Juvencio Rosa DO Work Phone: [facility] 07-08-2024 15:21-0400 Body mass index (BMI) [Ratio] 55.2 kg/m2 Juvencio Rosa DO Work Phone: [facility] 07-08-2024 15:21-0400 Body weight 174.63 kg Juvencio Rosa DO Work Phone: [facility] 07-08-2024 15:21-0400 Diastolic blood pressure 80 mm[Hg] Juvencio Rosa DO Work Phone: [facility] 07-08-2024 15:21-0400 Heart rate 95 /min Juvencio Rosa DO Work Phone: [facility] 07-08-2024 15:21-0400 Respiratory rate 18 /min Juvencio Rosa DO Work Phone: [facility] 07-08-2024 15:21-0400 SaO2% (BldA) [Mass fraction] 95 % Juvencio Rosa DO Work Phone: [facility] 07-08-2024 15:21-0400 Systolic blood pressure 128 mm[Hg] Juvencio Rosa DO Work Phone: [facility] 06-18-2024 15:39-0400 Body height 177.8 cm Juvencio Rosa DO Work Phone: [facility] 06-18-2024 15:39-0400 Body mass index (BMI) [Ratio] 54.1 kg/m2 Juvencio Rosa DO Work Phone: [facility] 06-18-2024 15:39-0400 Body temperature 97.5 [degF] Juvencio Rosa DO Work Phone: [facility] 06-18-2024 15:39-0400 Body weight 171 kg Juvencio Rosa DO Work Phone: [facility] 06-18-2024 15:39-0400 Diastolic blood pressure 78 mm[Hg] Juvencio Rosa DO Work Phone: [facility] 06-18-2024 15:39-0400 Heart rate 60 /min Juvencio Rosa DO Work Phone: [facility] 06-18-2024 15:39-0400 SaO2% (BldA) [Mass fraction] 99 % Juvencio Rosa DO Work Phone: [facility] 06-18-2024 15:39-0400 Systolic blood pressure 160 mm[Hg] Juvencio Rosa DO Work Phone: [facility] 06-10-2024 15:34-0400 Body height 177.[address] [facility] 06-10-2024 15:34-0400 Body mass index (BMI) [Ratio] 54.2 kg/m2 [facility] 06-10-2024 15:34-0400 Body temperature 97.8 [degF] [facility] 06-10-2024 15:34-0400 Body weight 171.[address] [facility] 06-10-2024 15:34-0400 Diastolic blood pressure 100 mm[Hg] [facility] 06-10-2024 15:34-0400 Heart rate 62 /min [facility] 06-10-2024 15:34-0400 Respiratory rate 18 /min [facility] 06-10-2024 15:34-0400 SaO2% (BldA) [Mass fraction] 98 % [facility] 06-10-2024 15:34-0400 Systolic blood pressure 142 mm[Hg] [facility] 03-11-2024 15:38-0500 Body height 177.8 cm Juvencio Rosa DO Work Phone: [facility] 03-11-2024 15:38-0500 Body mass index (BMI) [Ratio] 52.6 kg/m2 Juvencio Rosa DO Work Phone: [facility] 03-11-2024 15:38-0500 Body temperature 97.2 [degF] Juvencio Rosa DO Work Phone: [facility] 03-11-2024 15:38-0500 Body weight 166.46 kg Juvencio Rosa DO Work Phone: [facility] 03-11-2024 15:38-0500 Diastolic blood pressure 88 mm[Hg] Juvencio Rosa DO Work Phone: [facility] 03-11-2024 15:38-0500 Heart rate 62 /min Juvencio Rosa DO Work Phone: [facility] 03-11-2024 15:38-0500 Respiratory rate 18 /min Juvencio Rosa DO Work Phone: [facility] 03-11-2024 15:38-0500 SaO2% (BldA) [Mass fraction] 97 % Juvencio Rosa DO Work Phone: [facility] 03-11-2024 15:38-0500 Systolic blood pressure 122 mm[Hg] Juvencio Rosa DO Work Phone: [facility] 02-10-2024 15:08-0500 Body height 177.8 cm Juvencio Rosa DO Work Phone: [facility] 02-10-2024 15:08-0500 Body mass index (BMI) [Ratio] 54.5 kg/m2 Juvencio Rosa DO Work Phone: [facility] 02-10-2024 15:08-0500 Body temperature 98.2 [degF] Juvencio Rosa DO Work Phone: [facility] 02-10-2024 15:08-0500 Body weight 172.36 kg Juvencio Rosa DO Work Phone: [facility] 02-10-2024 15:08-0500 Diastolic blood pressure 112 mm[Hg] Juvencio Rosa DO Work Phone: [facility] 02-10-2024 15:08-0500 Heart rate 59 /min Juvencio Rosa DO Work Phone: [facility] 02-10-2024 15:08-0500 Respiratory rate 18 /min Juvencio Rosa DO Work Phone: [facility] 02-10-2024 15:08-0500 SaO2% (BldA) [Mass fraction] 99 % Juvencio Rosa DO Work Phone: [facility] 02-10-2024 15:08-0500 Systolic blood pressure 170 mm[Hg] Juvencio Rosa DO Work Phone: [facility] 01-16-2024 15:20-0500 Body height 177.[address] [facility] 01-16-2024 15:20-0500 Body mass index (BMI) [Ratio] 52.4 kg/m2 [facility] 01-16-2024 15:20-0500 Body temperature 97.8 [degF] [facility] 01-16-2024 15:20-0500 Body weight [address] [facility] 01-16-2024 15:20-0500 Diastolic blood pressure 78 mm[Hg] [facility] 01-16-2024 15:20-0500 Heart rate 72 /min [facility] 01-16-2024 15:20-0500 Respiratory rate 16 /min [facility] 01-16-2024 15:20-0500 SaO2% (BldA) [Mass fraction] 98 % [facility] 01-16-2024 15:20-0500 Systolic blood pressure 124 mm[Hg] [facility] 2024 15:17-0400 Body height 177.[address] [facility] 2024 15:17-0400 Body mass index (BMI) [Ratio] 52.4 kg/m2 [facility] 2024 15:17-0400 Body temperature 98.6 [degF] [facility] 2024 15:17-0400 Body weight [address] [facility] 2024 15:17-0400 Diastolic blood pressure 94 mm[Hg] [facility] 2024 15:17-0400 Heart rate 74 /min [facility] 2024 15:17-0400 Respiratory rate 16 /min [facility] 2024 15:17-0400 SaO2% (BldA) [Mass fraction] 98 % [facility] 2024 15:17-0400 Systolic blood pressure 158 mm[Hg] [facility] 12-25-2023 15:18-0400 Diastolic blood pressure 100 mm[Hg] [facility] 12-25-2023 15:18-0400 Systolic blood pressure 152 mm[Hg] [facility] 12-25-2023 15:15-0400 Body height 177.[address] [facility] 12-25-2023 15:15-0400 Body mass index (BMI) [Ratio] 52.6 kg/m2 [facility] 12-25-2023 15:15-0400 Body weight 166.[address] [facility] 12-25-2023 15:15-0400 Heart rate 70 /min [facility] 12-25-2023 15:15-0400 Respiratory rate 18 /min [facility] 12-25-2023 15:15-0400 SaO2% (BldA) [Mass fraction] 98 % [facility] 11-06-2022 16:30-0400 Body height 177.8 cm Juvencio Rosa Other [facility] [employer] [facility] [employer] Other 11-06-2022 16:30-0400 Body mass index (BMI) [Ratio] 49.93 kg/m2 Juvencio Rosa Other [employer] [employer] [facility] [employer] Other 11-06-2022 16:30-0400 Body temperature 97.7 [degF] Juvencio Rosa Other [facility] Other 11-06-2022 16:30-0400 Body weight 157.85 kg Juvencio Rosa Other [employer] Other 11-06-2022 16:30-0400 Diastolic blood pressure 74 mm[Hg] Juvencio Rosa Other [employer] Other 11-06-2022 16:30-0400 Respiratory rate 20 /min Juvencio Rosa Other [employer] Other 11-06-2022 16:30-0400 SaO2% (BldA) [Mass fraction] 97 % Juvencio Rosa Other [employer] Other 11-06-2022 16:30-0400 Systolic blood pressure 170 mm[Hg] Juvencio Rosa Other [employer] Other 10-24-2022 15:15-0400 Body height 177.8 cm Michelle Ibeth Other [employer] Other 10-24-2022 15:15-0400 Body mass index (BMI) [Ratio] 50.64 kg/m2 Michelle Ibeth Other [facility] Other 10-24-2022 15:15-0400 Body weight 160.12 kg Michelle Ibeth Other [employer] Other 10-24-2022 15:15-0400 Diastolic blood pressure 95 mm[Hg] Michelle Ibeth Other [employer] Other 10-24-2022 15:15-0400 SaO2% (BldA) [Mass fraction] 97 % Michelle Ibeth Other [employer] Other 10-24-2022 15:15-0400 Systolic blood pressure 153 mm[Hg] Michelle Ibeth Other [employer] Other 05-02-2022 16:30-0500 Body height 177.8 cm Juvencio Rosa Other [employer] Other 05-02-2022 16:30-0500 Body mass index (BMI) [Ratio] 53.94 kg/m2 Juvencio Rosa Other [employer] Other 05-02-2022 16:30-0500 Body temperature 97.5 [degF] Juvencio Rosa Other [employer] Other 05-02-2022 16:30-0500 Body weight 170.55 kg Juvencio Rosa Other [facility] Other 05-02-2022 16:30-0500 Diastolic blood pressure 90 mm[Hg] Juvencio Rosa Other [employer] Other 05-02-2022 16:30-0500 Respiratory rate 20 /min Juvencio Rosa Other [employer] Other 05-02-2022 16:30-0500 SaO2% (BldA) [Mass fraction] 97 % Juvencio Rosa Other [employer] Other 05-02-2022 16:30-0500 Systolic blood pressure 150 mm[Hg] Juvencio Rosa Other [employer] Other 01-31-2022 19:45-0500 Body height 177.8 cm Juvencio Rosa Other [employer] Other 01-31-2022 19:45-0500 Body mass index (BMI) [Ratio] 54.95 kg/m2 Juvencio Rosa Other [facility] Other 01-31-2022 19:45-0500 Body temperature 99.1 [degF] Juvencio Rosa Other [facility] Other 01-31-2022 19:45-0500 Body weight 173.73 kg Juvencio Rosa Other [facility] Other 01-31-2022 19:45-0500 Diastolic blood pressure 92 mm[Hg] Juvencio Rosa Other [employer] Other 01-31-2022 19:45-0500 Respiratory rate 20 /min Juvencio Rosa Other [employer] Other 01-31-2022 19:45-0500 SaO2% (BldA) [Mass fraction] 98 % Juvencio Rosa Other [employer] Other 01-31-2022 19:45-0500 Systolic blood pressure 142 mm[Hg] Juvencio Rosa Other [employer] Other 11-24-2021 09:45-0400 Body height 177.8 cm Juvencio Rosa Other [employer] Other 11-24-2021 09:45-0400 Body mass index (BMI) [Ratio] 53.23 kg/m2 Juvencio Rosa Other [employer] Other 11-24-2021 09:45-0400 Body temperature 97.6 [degF] Juvencio Rosa Other [facility] Other 11-24-2021 09:45-0400 Body weight 168.29 kg Juvencio Rosa Other [employer] Other 11-24-2021 09:45-0400 Diastolic blood pressure 102 mm[Hg] Juvencio Rosa Other [facility] Other 11-24-2021 09:45-0400 Respiratory rate 20 /min Juvencio Rosa Other [employer] Other 11-24-2021 09:45-0400 SaO2% (BldA) [Mass fraction] 99 % Juvencio Rosa Other [employer] Other 11-24-2021 09:45-0400 Systolic blood pressure 148 mm[Hg] Juvencio Rosa Other [employer] Other 10-25-2021 16:15-0400 Body height 177.8 cm Michelle Ibeth Other [employer] Other 10-25-2021 16:15-0400 Body mass index (BMI) [Ratio] 54.09 kg/m2 Michelle Ibeth Other [employer] Other 10-25-2021 16:15-0400 Body temperature 97.3 [degF] Michelle Ibeth Other [employer] Other 10-25-2021 16:15-0400 Body weight 171.01 kg Michelle Ibeth Other [employer] Other 10-25-2021 16:15-0400 Diastolic blood pressure 111 mm[Hg] Michelle Ibeth Other [employer] Other 10-25-2021 16:15-0400 SaO2% (BldA) [Mass fraction] 96 % Michelle Ibeth Other [facility] Other 10-25-2021 16:15-0400 Systolic blood pressure 182 mm[Hg] Michelle Ibeth Other [employer] Other 01-05-2022 17:30-0500 Body height 177.8 cm Juvencio Rosa Other [employer] Other 03-08-2021 17:30-0500 Body mass index (BMI) [Ratio] 57.93 kg/m2 Juvencio Rosa Other [employer] Other 03-08-2021 17:30-0500 Body temperature 98.9 [degF] Juvencio Rosa Other [employer] Other 03-08-2021 17:30-0500 Body weight 183.16 kg Juvencio Rosa Other [employer] Other 03-08-2021 17:30-0500 Diastolic blood pressure 90 mm[Hg] Juvencio Rosa Other [employer] Other 03-08-2021 17:30-0500 Respiratory rate 20 /min Juvencio Rosa Other [employer] Other 03-08-2021 17:30-0500 SaO2% (BldA) [Mass fraction] 96 % Juvencio Rosa Other [employer] Other 03-08-2021 17:30-0500 Systolic blood pressure 144 mm[Hg] Juvencio Rosa Other [employer] Other 01-23-2021 17:45-0500 Body height 177.8 cm Juvencio Rosa Other [employer] Other 01-23-2021 17:45-0500 Body mass index (BMI) [Ratio] 57.24 kg/m2 Juvencio Rosa Other [employer] Other 01-23-2021 17:45-0500 Body temperature 98.7 [degF] Juvencio Rosa Other [employer] Other 01-23-2021 17:45-0500 Body weight 180.99 kg Juvencio Rosa Other [facility] Other 01-23-2021 17:45-0500 Diastolic blood pressure 90 mm[Hg] Juvencio Rosa Other [employer] Other 01-23-2021 17:45-0500 Respiratory rate 20 /min Juvencio Rosa Other [employer] Other 01-23-2021 17:45-0500 SaO2% (BldA) [Mass fraction] 98 % Juvencio Rosa Other [facility] Other 01-23-2021 17:45-0500 Systolic blood pressure 138 mm[Hg] Juvencio Rosa Other [employer] Other Encounters Encounter Date Encounter Type Care Provider Facility Start: 09-24-2024 End: 09-24-2024 ambulatory Juvencio M. Rosa DO Work Phone: [facility] Work Phone: Start: 09-24-2024 End: 09-24-2024 Patient encounter procedure Edvin Hastings MD -[facility] [place] Work Phone: Start: 09-17-2024 End: 09-17-2024 ambulatory Juvencio M. Rosa DO Work Phone: [facility] Work Phone: Start: 09-17-2024 End: 09-17-2024 Patient encounter procedure Juvencioasif AdamsRosa M DO -[facility] [place] Work Phone: Start: 08-10-2024 End: 08-10-2024 ambulatory Juvencio Abe. Rosa DO Work Phone: [facility] Work Phone: Start: 08-10-2024 End: 08-10-2024 Patient encounter procedure Juvencio Rosa DO Work Phone: [facility]-Ultrasound [place] Work Phone: Start: 07-13-2024 End: 07-13-2024 Patient encounter procedure Juvencio Rosa DO Work Phone: [facility]-Lab [place] Work Phone: Start: 07-13-2024 End: 07-13-2024 ambulatory Juvencio M. Rosa DO Work Phone: [facility] Work Phone: Start: 07-08-2024 End: 07-08-2024 ambulatory Juvencio Abe. Rosa DO Work Phone: [facility] Work Phone: Start: 07-08-2024 End: 07-08-2024 Patient encounter procedure Juvencio Rosa DO Work Phone: [facility] Work Phone: Start: 06-18-2024 End: 06-18-2024 Patient encounter procedure Juvencio Rosa DO Work Phone: [facility] V[facility] [place] Work Phone: Start: 06-10-2024 End: 06-10-2024 ambulatory [facility] Work Phone: Start: 06-10-2024 End: 06-10-2024 Patient encounter procedure [facility] [place] Work Phone: Start: 05-20-2024 End: 05-20-2024 ambulatory [facility] Work Phone: Start: 05-20-2024 End: 05-20-2024 Patient encounter procedure [facility] Work Phone: Start: 03-11-2024 End: 03-11-2024 ambulatory Juvencio M. Rosa DO Work Phone: [facility] Work Phone: Start: 03-11-2024 End: 03-11-2024 Patient encounter procedure Juvencio Rosa DO Work Phone: [facility] Work Phone: Start: 02-13-2024 End: 02-13-2024 Patient encounter procedure Juvencio Rosa DO Work Phone: [facility] Work Phone: Start: 02-10-2024 End: 02-10-2024 Patient encounter procedure Juvencio Rosa DO Work Phone: [facility] Work Phone: Start: 02-10-2024 Non-patient / Non-visit Juvencio Rosa DO Work Phone: [facility] Work Phone: Start: 02-09-2024 Non-patient / Non-visit Juvencio Rosa DO Work Phone: [facility] Work Phone: Start: 02-08-2024 Non-patient / Non-visit Juvencio Rosa DO Work Phone: [facility] Work Phone: Start: 02-07-2024 Non-patient / Non-visit Juvencio Rosa DO Work Phone: [facility] Work Phone: Start: 02-05-2024 End: 02-05-2024 Patient encounter procedure Juvencioasif AdamsRosa DO Work Phone: [facility]-Ultrasound [place] Work Phone: Start: 02-05-2024 End: 02-05-2024 ambulatory Juvencio M. Rosa Facility:[facility] Start: 01-16-2024 End: 01-16-2024 ambulatory [facility] Work Phone: Start: 01-16-2024 End: 01-16-2024 Patient encounter procedure [facility] [place] Work Phone: Start: 01-08-2024 End: 01-08-2024 ambulatory EDVIN HASTINGS Facility:[facility] Start: 01-08-2024 End: 01-08-2024 Patient encounter procedure EDVIN HASTINGS [facility] Start: 2024 End: 2024 ambulatory [facility] Work Phone: Start: 2024 End: 2024 Patient encounter procedure [facility] [place] Work Phone: Start: 12-25-2023 End: 12-25-2023 ambulatory JUVENCIO Abe ROSA Facility:[facility] Start: 12-25-2023 End: 12-25-2023 Patient encounter procedure JUVENCIOAsif ADAMSGLES [facility] Start: 12-25-2023 End: 12-25-2023 ambulatory [facility] Work Phone: Start: 12-25-2023 End: 12-25-2023 Patient encounter procedure [facility] Work Phone: Start: 04-12-2023 End: 04-12-2023 ambulatory Juvencio Rosa Other [employer] Other Start: 04-12-2023 Telephone encounter Juvencio Rosa [facility] Start: 02-28-2023 End: 02-28-2023 ambulatory Juvencio Rosa Other [employer] Other Start: 02-28-2023 Telephone encounter Juvencio Rosa [facility] Start: 01-08-2023 End: 01-08-2023 ambulatory Juvencio Rosa Other [facility] Other Start: 01-08-2023 Telephone encounter Juvencio Rosa [facility] Start: 12-06-2022 End: 12-06-2022 ambulatory Juvencio Rosa Other [facility] Other Start: 12-06-2022 Telephone encounter Juvencio Rosa [facility] Start: 11-20-2022 End: 11-20-2022 ambulatory Juvencio Rosa Other [facility] Other Start: 11-20-2022 Telephone encounter Juvencio Rosa [facility] Start: 11-06-2022 End: 11-06-2022 ambulatory Juvencio Rosa Other [employer] Other Start: 11-06-2022 Office outpatient visit 15 minutes Juvencio Rosa [facility] Start: 10-30-2022 End: 10-30-2022 ambulatory Juvencio Rosa Other [employer] Other Start: 10-30-2022 Telephone encounter Juvencio Rosa [facility] Start: 10-24-2022 End: 10-24-2022 Patient encounter procedure DO Juvencio Rosa Work Phone: [facility] Work Phone: Start: 10-24-2022 End: 10-24-2022 ambulatory DO Juvencio M. Rosa Work Phone: [facility] Work Phone: Start: 10-24-2022 Office outpatient visit 10 minutes Michelle Ibeth [facility] Start: 10-16-2022 End: 10-16-2022 ambulatory Juvencio Rosa Other [employer] Other Start: 10-16-2022 Telephone encounter Juvencio Rosa [facility] Start: 10-10-2022 End: 10-10-2022 Patient encounter procedure JUVENCIO M ROSA [facility] Start: 09-18-2022 End: 09-18-2022 ambulatory Juvencio Rosa Other [employer] Other Start: 09-18-2022 Telephone encounter Juvencio Rosa [facility] Start: 05-07-2022 End: 05-07-2022 ambulatory Juvencio Rosa Other [employer] Other Start: 05-07-2022 Telephone encounter Juvencio Rosa [facility] Start: 05-04-2022 End: 05-04-2022 ambulatory Juvencio Rosa Other [employer] Other Start: 05-04-2022 Telephone encounter Juvencio Rosa [facility] Start: 05-02-2022 End: 05-02-2022 ambulatory Juvencio Rosa Other [employer] Other Start: 05-02-2022 Office outpatient visit 15 minutes Juvencio Rosa [facility] Start: 01-31-2022 End: 01-31-2022 ambulatory Juvencio Rosa Other [employer] Other Start: 01-31-2022 Office outpatient visit 15 minutes Juvencio Rosa [facility] Start: 12-22-2021 End: 12-22-2021 ambulatory Juvencio Rosa Other [employer] Other Start: 12-22-2021 Telephone encounter Juvencio Rosa [facility] Start: 11-24-2021 End: 11-24-2021 ambulatory Juvencio Rosa Other [employer] Other Start: 11-24-2021 Office outpatient visit 15 minutes Juvencio Rosa [facility] Start: 11-20-2021 End: 11-20-2021 ambulatory Juvencio Rosa Other [employer] Other Start: 11-20-2021 Telephone encounter Juvencio Rosa [facility] Start: 10-25-2021 End: 10-25-2021 Patient encounter procedure DO Juvencio Rosa Work Phone: [facility] Start: 10-25-2021 End: 10-25-2021 ambulatory Michelle Ibeth Other [employer] Other Start: 10-25-2021 Office outpatient visit 10 minutes Michelle Ibeth [facility] Start: 09-07-2021 End: 09-07-2021 ambulatory Juvencio Rosa Other [employer] Other Start: 09-07-2021 Telephone encounter Juvencio Rosa [facility] Start: 07-24-2021 End: 07-24-2021 ambulatory Juvencio Rosa Other [employer] Other Start: 07-24-2021 Telephone encounter Juvencio Rosa [facility] Start: 05-31-2021 End: 05-31-2021 ambulatory Juvencio Rosa Other [employer] Other Start: 05-31-2021 Telephone encounter Juvencio Rosa [facility] Start: 05-30-2021 End: 05-30-2021 Patient encounter procedure DO Juvencio Rosa Work Phone: [facility] Start: 05-24-2021 End: 05-24-2021 ambulatory Juvencio Rosa Other [employer] Other Start: 05-24-2021 Telephone encounter Juvencio Rosa [facility] Start: 05-16-2021 End: 05-16-2021 ambulatory Juvencio Rosa Other [employer] Other Start: 05-16-2021 Telephone encounter Juvencio Rosa [facility] Start: 04-14-2021 End: 04-14-2021 ambulatory Juvencio Rosa Other [employer] Other Start: 04-14-2021 Telephone encounter Juvencio Rosa [facility] Start: 03-08-2021 End: 03-08-2021 ambulatory Juvencio Rosa Other [employer] Other Start: 03-08-2021 Office outpatient visit 15 minutes Juvencio Rosa [facility] Start: 03-08-2021 Telephone encounter Juvencio Rosa [facility] Start: 02-07-2021 End: 02-08-[address] JUVENCIO LEE Facility:[facility] Start: 01-23-2021 End: 01-23-2021 ambulatory Juvencio Rosa Other [facility] Other Start: 01-23-2021 Office outpatient visit 25 minutes Juvencioasif AdamsRosa [facility] Start: 08-30-2020 ambulatory ERMELINDA Hawthorne y:[facility]1 Procedures Date Procedure Procedure Detail Performing Clinician Start: 08-10-2024 Doppler ultrasonogra phy of kidney Juvencio Rosa DO Work Phone: Start: 02-05-2024 Duplex scan of lower limb veins Juvencio Rosa DO Work Phone: Plan of Treatment Date Care Activity Detail Author Start: 08-10-2024 Doppler ultrasonogra phy of kidney US renal doppler [facility] Start: 08-10-2024 US Unspecified body region [facility] Start: 07-13-2024 Aldosterone [Mass/vo lume] in Serum or Plasma [facility] Start: 07-13-2024 Renin [Enzymatic activity/volume] in Plasma [facility] Start: 07-13-2024 [facility] Start: 07-08-2024 [facility] Start: 02-10-2024 Patient referral [facility] Work Phone: Aldosterone [Mass/vo lume] in Serum or Plasma [facility] Creatinine [Mass/vol ume] in Urine [facility] Metanephrines [Mass/ volume] in 24 hour Urine [facility] Metanephrines/Creati nine [Mass Ratio] in Urine [facility] Normetanephrine [Mass/volume] in 24 hour Urine [facility] Patient referral [facility] Work Phone: Renin [Enzymatic activity/volume] in Plasma [facility] US Heart Transthoracic [facility] US Lower extremity v ein - bilateral [facility] US Lower extremity v ein - bilateral [facility] US Unspecified body region [facility] Immunizations Immunization Date Immunization Notes Care Provider Fa cility 08-14-2020 Do not use COVID-19 Pfizer 2 dose Juvencio Rosa Other [facility] 07-24-2020 COVID-19 Vaccine Pfizer - Documentation Purposes Only Juvencio Rosa Other [facility] NEGATED: Highlighted row has not occurred!01-23-2021 influenza, injectable, quadrivalent, contains preservative Patient Objection Juvencio Rosa Other [facility] Other NEGATED: Highlighted row has not occurred!12-09-2019 influenza, injectable, quadrivalent, contains preservative Patient Objection Juvencio Rosa Other [facility] Other NEGATED: Highlighted row has not occurred!01-05-2019 influenza, injectable, quadrivalent, contains preservative Patient Objection Juvencio Rosa Other [facility] Other NEGATED: Highlighted row has not occurred!01-04-2017 influenza, injectable, quadrivalent, contains preservative Patient Objection Juvencio Rosa Other [facility] Other Payers Date Payer Category Payer Self-pay [id number] 1975 Unknown [id number] 2.16.84 [id number] 1975 Unknown [id number] 2.16.84 [id number] 1973 Unknown [id number] 2.16.8 [id number] 1973 Unknown [id number] 2.16.8 [id number] 1959 Unknown [id number] Unknown [id number] 2.16.8 [id number] Unknown [id number] 2.16.8 [id number] Unknown [id number] 2.16.8 [id number] Unknown [id number] 2.16.8 [id number] Social History Date Type Detail Facility Tobacco smoking stat us NVIS Unknown if ever smoked [facility] Other Start: 1975 Sex Assigned At Male [facility] Sex Assigned At [facility] Tobacco smoking status No Smokin g Status Entered [facility] Start: 12-25-2023 End: 07-08-2024 Tobacco smoking status NHIS Never smoked tobacco (finding) [facility] Start: 01-16-2024 End: 08-11-2024 Sex Male (finding) [facility] Clinical Notes 01-23-2021 to 07-08-2024 Note Date & Type Note Facility 07-08-2024 Evaluation note Diagnosis Onset Date Resolution Dyspnea on exertion acute July 082024 3:10pm Essential (primary) hypertension acute July 08, 2024 3: 10pm Obstructive sleep apnea acute 2024 3:10pm Elevated serum creatinine noneactive July 08, 2024 3: 10pm Essential (primary) hypertension acute September 17, 2024 3:16pm [facility] Work Phone: 1(623) 738-471404-09-2025 Evaluation note* Diagnosis Onset Date Resolution Status Admit Date Essential (primary) hypertension acute June 10, 2024 3:32pm Body mass index [BMI] 50.0-59.9, adult noneactive June 10, 2024 3:32pm Venous insufficiency of left leg acute June 18, 2024 3:36pm [facility] Work Phone: 1(451) 699-213604-09-2025 Evaluation note* Diagnosis Onset Date Resolution Status [...] serum creatinine noneactive July 08, 2024 3:10pm [facility] Work Phone: 1(163) 615-723701-08-2025 Evaluation note* Diagnosis Onset Date Resolution Status Admit Date Essential (primary) hypertension acute March 11 3:24pm [facility] Work Phone: 1(509) 390-390210-23-2024 Evaluation note* Diagnosis Onset Date Resolution Status Admit Date Essential (primary) hypertension acute December 24 3:13pm Left leg swelling noneactive December 25, 2023 3:13pm Swelling of left lower extremity acute January 01 3:14pm [facility] Work Phone: 1(238) 192-957010-23-2024 Evaluation note* Diagnosis Onset Date Resolution Status [...] Essential (primary) hypertension acute March 11 3:24pm [facility] Work Phone: 1([phone]) 121-423512-28-2023 Evaluation note* Encounter Date Diagnosis Assessment Notes Treatment Notes Treatment Clinical Notes Feb, Decreased GFR (ICD-10 - R94.4) [facility] Other 10-05-2023 Evaluation note* Encounter Date Diagnosis Assessment Notes Treatment Notes Treatment Clinical Notes Dec, Decreased GFR (ICD-10 - R94.4) [facility] Other 09-19-2023 Evaluation note* Encounter Date Diagnosis Assessment Notes Treatment Notes Treatment Clinical Notes Nov, Essential (primary) hypertension (ICD-10 - I10) [facility] Other 09-05-2023 Evaluation note* Encounter Date Diagnosis [...] diet, and weight loss are always encouraged. [facility] Other 08-23-2023 Evaluation note* Encounter Date Diagnosis Assessment Notes Treatment Notes Treatment Clinical Notes Oct, Obstructive sleep apnea (ICD-10 - G47.33) [facility] Other 07-18-2023 Evaluation note* Encounter Date Diagnosis Assessment Notes Treatment Notes Treatment Clinical Notes Sep, Essential (primary) hypertension (ICD-10 - I10) [facility] 03-03-2023 Evaluation note* Encounter Date Diagnosis Assessment Notes Treatment Notes Treatment Clinical Notes May, Essential (primary) hypertension (ICD-10 - I10) [facility] 03-01-2023 Evaluation note* Encounter Date Diagnosis Assessment Notes Treatment Notes Treatment Clinical Notes May, Essential (primary) hypertension (ICD-10 - I10) May, Chronic fatigue (ICD-10 - R53.82) May, Other The goal of hypertension as always to have a blood pressure within acceptable limits, with patient staying compliant with medication. Increased activity, monitoring diet, and weight loss are always encouraged. [facility] Other 03-01-2023 Evaluation note* Encounter Date Diagnosis [...] diet, and weight loss are always encouraged. [facility] Other 11-30-2022 Evaluation note* Encounter Date Diagnosis [...] diet, and weight loss are always encouraged. [facility] Other 10-21-2022 Evaluation note* Encounter Date Diagnosis Assessment Notes Treatment Notes Treatment Clinical Notes Dec, Essential (primary) hypertension (ICD-10 - I10) [facility] Other 09-23-2022 Evaluation note* Encounter Date Diagnosis Assessment Notes Treatment Notes Treatment Clinical Notes Nov, Essential (primary) hypertension (ICD-10 - I10) eRX sent. Will recheck in 2-3 months. Nov, Other The goal of hypertension as always to have a blood pressure within acceptable limits, with patient staying compliant with medication. Increased activity, monitoring diet, and weight loss are always encouraged. [facility] Other 09-19-2022 Evaluation note* Encounter Date Diagnosis Assessment Notes Treatment Notes Treatment Clinical Notes Nov, Essential (primary) hypertension (ICD-10 - I10) [facility] Other 08-24-2022 Evaluation note* Encounter Date Diagnosis Assessment Notes Treatment Notes Treatment Clinical Notes Oct, Obstructive sleep apnea (ICD-10 - G47.33) [facility] Other 05-23-2022 Evaluation note* Encounter Date Diagnosis Assessment Notes Treatment Notes Treatment Clinical Notes July, Essential (primary) hypertension (ICD-10 - I10) [facility] Other 03-23-2022 Evaluation note* Encounter Date Diagnosis Assessment Notes Treatment Notes Treatment Clinical Notes May, Chronic fatigue (ICD-10 - R53.82) [facility] Other 02-11-2022 Evaluation note* Encounter Date Diagnosis Assessment Notes Treatment Notes Treatment Clinical Notes Apr, Essential (primary) hypertension (ICD-10 - I10) [facility] Other 01-05-2022 Evaluation note* Encounter Date Diagnosis [...] diet, and weight loss are always encouraged. [facility] Other 11-22-2021 Evaluation note* Encounter Date Diagnosis [...] diet, and weight loss are always encouraged. [facility] Other Evaluation + Plan note No data available for this section [facility] information available [facility] Work Phone: Evaluation [facility]No [facility] Other Evaluation note* Diagnosis Onset Date Resolution Status Essential (primary) hypertension acute Left leg swelling noneactive [facility] Work Phone: Evaluation note* Diagnosis Onset Date Resolution Status Admit Date Essential (primary) hypertension acu te June 10, 2024 3:32pm [facility] Work Phone: History general Narrative - Reported* Type Description Date Medical History Hypertension [facility] Other History general Narrative - Reported* Type Description Date Medical History Hypertension Medical History Sleep Apnea [facility] Other Hospital Discharge instructions No data available for this section [facility] No data available for this section [facility] (narrative)No reason for referral [facility] available[facility] Work Phone: Summary Purpose Family History Relationship [...] REF BY DR. LEE FOR LEG SWELLING [facility] 2023 3:14pm GO OVER F/F DONE AT [facility] January 16, 2024 3:15pm Reason for Visit Admit Date Essential (primary) hypertension December 25, 2023 3:13pm Left leg swelling December 25, 2023 3 :13pm Swelling of left lower extremity 2024 3:14pm Chief Complaint Admit Date BP concerns December 25, 2023 3 :13pm REF BY DR. LEE FOR LEG SWELLING Dec 2023 3:14pm GO OVER F/F DONE AT [facility] January 16, 2024 3:15pm I83.813 February 05, 2024 3 :22pm Amb Documentation February 10, 2024 1 2:03pm chest congestion February 10, 2024 3 :07pm GO OVER F/F DONE AT [facility] February 13, 2024 3:29pm one month March 11, 2024 3: 24pm Reason for Visit Admit Date Essential (primary) hypertension December 25, 2023 3:13pm Left leg swelling December 25, 2023 3 :13pm Swelling of left lower extremity 2024 3:14pm [facility] ([facility] 3:07[facility] Obstructive sleep apnea February 09 3:07pm Venous insufficiency of left leg [facility] 3:29[facility] Essential (primary) hypertension March [...] DATE CREATED AUTHOR AUTHOR'S ORGANIZ ATION [facility]/18/2024 [facility] DATE CREATED AUTHOR AUTHOR'S ORGANIZ ATION 09/14/2024 [facility] Care Teams (unrecognized sec tion and content) Team Status: Inactive Member Role Status Dates Juvencio Lee DO Primary Care Provider, Referring Provider Active Eber Krause MD Attending Provider Active Team Status: Active Member Role Status Dates Juvencio Lee DO Primary Care Provider Active Team Status: Inactive Member Role Status Dates Juvencio Lee DO Primary Care Provider Active Michelle Crisitna APRN [facility] Attending Provider Active Team Status: Inactive Member [...] BE BASED ON THE PRIMARY CLINICAL RECORDS. [facility]. provides no warranty or guarantee of the accuracy or completeness of information in this document.
--- NOTE | 2024-10-23 05:23 | US_ITS ---
[address] [address] Patient Name: HEMANTH RIVREA MRN: [id number] date: 1975 Sex: M Assigned Patient Location: [place] Current Patient Location: [place] Accession/Order Number: [id number] Exam Date: 10/23/2024 07:15 Report Date: 10/23/2024 14:20 At the request of: NATALIE VILLATORO MD Procedure: US renal BI Bilateral Renal Ultrasound HISTORY: Acute kidney injury. COMPARISON: None RIGHT kidney measures 11.7 cm. LEFT kidney measures 10.5 cm. Hydronephrosis: None RENAL STONE: No shadowing renal calculus is seen. RENAL LESIONS: 4.8 cm anechoic cyst superior pole right kidney. URINARY BLADDER: Unremarkable REPRODUCTIVE STRUCTURES Not assessed IMPRESSION : No hydronephrosis. Impression dictated by: Hemanth Bates M.D. 10/23/2024 2:20 PM Dictation Location: [place] [address] Electronically authenticated by: [id number] Y Date: 10/23/2024 14:20
[2024-10-23] MEDS: 0.9 % SODIUM CHLORIDE 1,000 ML 100 ML IV ×2 (05:49→16:33)
[2024-10-23] MEDS: CLONIDINE HCL 0.1 MG TABLET PO ×2 (05:51→13:27)
[2024-10-23] MEDS: POTASSIUM CHLORIDE 10 MEQ ER TABLET 20 MEQ PO (05:51)
[2024-10-23] MEDS: HEPARIN SODIUM (PORCINE) 5,000 UNIT/ML VIAL 5000 UNIT SUBQ ×2 (08:14→16:38)
[2024-10-23] MEDS: CARVEDILOL 25 MG TABLET PO ×2 (08:14→16:33)
[2024-10-23] MEDS: AMLODIPINE BESYLATE 5 MG TABLET 10 MG PO (08:15)
--- NOTE | 2024-10-23 09:00 | CM.NOTE ---
[facility] Dr. Garcia[facility] Santana discussed diagnosis and plan of care. Pt will need IV antibiotics and could possibly require long term care administrator IV antibiotics at discharge. Pt verbalizes understanding.
--- NOTE | 2024-10-23 14:38 | CT_ITS ---
[address] [address] Patient Name: HEMANTH RIVERA MRN: [id number] date: 1975 Sex: M Assigned Patient Location: [place] Current Patient Location: [place] Accession/Order Number: [id number] Exam Date: 10/23/2024 15:04 Report Date: 10/23/2024 16:20 At the request of: NATALIE VILLATORO MD Procedure: CT lower leg LT wo con CT left lower leg without contrast TECHNIQUE: The CT exam was performed using one or more the following dose reduction techniques: Automated exposure control, adjustment of the MA and/or Kv according to patient size, or use of the iterative reconstruction technique. COMPARISON: None HISTORY: Cellulitis. Assessment for abscess. Assessment for osteomyelitis Skin thickening and subcutaneous fatty stranding consistent with cellulitis. No distended fluid collection seen to suggest abscess. No subcutaneous air. No muscle infiltration. Intact bony structures. CT/CT lower leg LT wo con IMPRESSION: Cellulitis. No subcutaneous air. No abscess. No osteomyelitis. Impression dictated by: Hemanth Bates M.D. 10/23/2024 4:20 PM Dictation Location: [employer] Electronically authenticated by: [id number] Y Date: 10/23/2024 16:20
--- NOTE | 2024-10-23 14:43 | PM.HP ---
HPI H&P: HPI History of Present Illness Chief complaint: DELIO, LEFT LOWER EXT. CELLULITIS Narrative: Mr. Vallejo is a 49-year-old gentleman with the history of hypertension and CKD. Patient came in with history of progressive left leg pain, swelling, redness and tenderness over the last many weeks and even months. Patient has quite extensive cellulitis involving the left leg. Patient reports having fever and chills. No chest pain or palpitation. No abdominal pain, nausea or vomiting Opioid HPI Opioid Management Most Recent Pain and Opioid Data: Last Pain Scale 5 10/22/24, 22:10 Last Pain Assessment Today, 04:00 Last ORT Total Score 0 Today, 03:27 Last ORT Risk Category Low Risk Today, 03:27 Ur Phencyclidine Scrn, (NEGATIVE) Negative 02/07/24, 22:28 Review of Systems ROS Status of ROS 10 or more systems reviewed and unremarkable except as noted in history and below PFSH PFS Medical History (Updated 10/23/24 @ 14:46 by María Santana MD) Essential hypertension ?I10 - Essential (primary) hypertension (ICD-10) Acute kidney injury ?N17.9 - Acute kidney failure, unspecified (ICD-10) Congestive heart failure ?I50.9 - Heart failure, unspecified (ICD-10) Surgical History (Updated 10/23/24 @ 03:38 by Lora Badillo RN) Deficient knowledge of leg surgery ?Z55.8 - Other problems related to education and literacy (ICD-10) Family History (Updated 10/23/24 @ 03:42 by Lora Badillo RN) Mother Family history of cancer Family history of diabetes mellitus Father Family history of diabetes mellitus Other Family history of hypertension Family history of myocardial infarction Social History (Updated 10/23/24 @ 03:42 by Lora Badillo RN) Within the past year, how often did you have a drink containing alcohol: never Within the past year, how many standard drinks containing alcohol did you have on a typical day: 1 or 2 Within the past year, how often did you have six or more drinks on one occasion: never Total score: 0 Score interpretation: A score less than 4 is consistent with normal alcohol consumption. Smoking status: Never smoker Second hand tobacco smoke exposure: No Non-prescribed substance use: denies use Previous occupational history: [employer] Known occupational exposures/hazards: No Highest level of school completed/degree received: high school graduate Are you now , , , , never or living with a partner: In a typical week, how many times do you talk on the telephone with family, friends, or neighbors: 3 or more times per week How often do you get together with friends or relatives: 3 or more times per week Little interest or pleasure in doing things: not at all Feeling down, depressed, or hopeless: not at all Feel stressed/tense/nervous/anxious/difficulty sleeping: not at all Do you think of yourself as: straight/heterosexual Gender Identity: male Meds Home Medications and Allergies Home Medications ?Medication ?Instructions ?Recorded ?Confirmed ?Type hydrochlorothiazide 25 mg tablet 25 mg PO DAILY 02/07/24 10/22/24 History amlodipine 10 mg tablet 10 mg PO DAILY #30 tabs 02/09/24 10/22/24 Rx clonidine HCl 0.1 mg tablet 0.1 mg PO TID #90 tabs 02/09/24 10/23/24 Rx carvedilol 25 mg tablet 25 mg PO Q12H 10/22/24 10/23/24 History Allergies Allergy/AdvReac Type Severity Reaction Status Date / Time No Known Drug Allergies Allergy Verified 10/22/24 22:13 Exam Narrative Exam Narrative: [pt is awake and alert. oriented to place, time and person, morbidly obese HEENT: [place] conjunctiva and NL buccal mucosa Neck: Supple, no tenderness Endocrine: No Thyromegaly. Vascular: No JVD or carotid bruit. Lymphatic: No cervical lymphadenopathy. Chest: CTA no DTP. Heart RRR, no extra sound or murmur. Abd: Soft, no tenderness, no rebound and no rigidity. Increase abd girth therefore clinically I could not exclude the possibility of intra abd mass or organomegaly. LE: No cyanosis or clubbing, quite extensive erythema, swelling, tenderness, induration and superficial ulceration involving the left leg from the knee down to the ankle. The left leg is triple size the right leg. No clinical evidence of superficial abscess or fluctuation. Faint dorsalis pedis pulse. Neuro: A A O. Nl speech, comprehension and attention. Nl and symetrical motor and tone examination through out. []] Constitutional Vital Signs, click to edit/add: Last Vital Signs Temp 98.2 F 10/23/24 07:26 Pulse 74 10/23/24 08:00 Resp 18 10/23/24 08:00 BP 172/93 H 10/23/24 08:15 Pulse Ox 92 L 10/23/24 07:26 O2 Del Method Room Air 10/23/24 07:26 Results Labs Labs: Short CBC 10/23/24 Range/Units 00:40 WBC 21.5 H (4.0-11.0) 10^3/uL Hgb 12.0 L (14.0-18.0) g/dL Hct 35.5 L (42.0-54.0) % Plt Count 257 (150-450) 10^3/uL BMP 10/23/24 00:40 Sodium 132 L Potassium 3.2 L Chloride 97 L Carbon Dioxide 25.1 BUN 46.0 H Creatinine 3.79 H Glucose 119 H Calcium 8.5 Liver Function 10/23/24 Range/Units 00:40 Total Bilirubin 0.4 (0.2-1.0) mg/dL AST 24 (15-37) U/L ALT 27 (16-63) U/L Alkaline Phosphatase 89 (46-116) U/L Albumin 2.4 L (3.4-5.0) g/dL Assessment and Plan Assessment and Plan (1) Acute kidney injury: (2) Cellulitis of left lower limb: (3) Sepsis: (4) Obesity: (5) Sleep apnea: (6) CKD (chronic kidney disease): Plan Sepsis present on admission. Please refer to initial sepsis evaluation, diagnosis and treatment completed in the emergency room department according to sepsis protocol Quite extensive cellulitis involving the right leg anteriorly, medially, laterally and posteriorly up to a point that the left leg is triple size the right leg I start the patient on broad-spectrum antibiotic I requested venous ultrasound rule out DVT I requested the CT scan rule out deep tissue abscess or osteomyelitis Thus far, no clinical evidence of compartment syndrome. Faint dorsalis pedis pulse but palpable I anticipate that patient would require long-term intravenous antibiotic as this may not get better in a few days. Acute on chronic kidney failure. Patient has chronic stage IV. GFR is in the mid 20s. This could be acute kidney failure or progression of chronic kidney disease Requested UA to see if he has any RBC or protein to suggest glomerulonephritis. This could be related to sepsis or postinfectious glomerulonephritis Requested renal ultrasound rule out obstructive uropathy. That came back negative. If his kidney function continues to worsen he would need referral to see nephrology and possible initiation of dialysis. Thus far there is no indication for urgent dialysis. Obstructive sleep apnea. Patient will ask his family to bring his CPAP machine from home Morbid obesity. Patient weighs about 400 pounds. Diet, exercise and lifestyle modification. Patient may benefit from GLP-1. Patient may benefit from gastric bypass surgery. Noncompliance It appears that patient neglected the development of cellulitis involving his left leg 4 weeks if not months. Counseling and education were provided. DVT prophylaxis Heparin subcu Hypertension Resume preadmission home medications. Adjust accordingly Chronic medical conditions not listed above, incidental findings seen on labs and imaging. These would need to be addressed. Could be addressed when time and condition are appropriate. Could be addressed in the outpatient setting by PCP collaboration with other needed outpatient providers.
[2024-10-23] MEDS: DOCUSATE SODIUM 100 MG CAPSULE PO (21:59)
[2024-10-23] MEDS: CLONIDINE HCL 0.1 MG TABLET 0.2 MG PO (22:00)
[2024-10-23 22:13] LABS: Glucose Urine UA NEGATIVE (NEGATIVE)
[2024-10-23 22:23] LABS: Crystals Seen? Seen #/HPF (None Seen)
[2024-10-23 22:24] LABS: Cast Seen? NONE SEEN #/LPF (NONE SEEN)
[2024-10-23 22:25] LABS: Urine Culture Indicated YES-FRMC
[2024-10-24] VITALS: BP 137/80; PULSE 67; TEMP 37.1; O2SAT 91
[2024-10-24] MEDS: HEPARIN SODIUM (PORCINE) 5,000 UNIT/ML VIAL 5000 UNIT SUBQ ×3 (02:05→17:08)
[2024-10-24 03:53] VITALS: BP 165/91; PULSE 72; TEMP 37.4; O2SAT 91
[2024-10-24] MEDS: CLONIDINE HCL 0.1 MG TABLET 0.2 MG PO (04:59)
[2024-10-24] MEDS: PIPERACILLIN SODIUM/TAZOBACTAM 3.375 GM in 0.9 % SODIUM CHLORIDE 50 ML IV ×2 (04:59→17:07)
[2024-10-24 07:24] LABS: Hematocrit 34.5 % (42.0-54.0); Hemoglobin 11.3 g/dL (14.0-18.0); Immature Granulocytes Abs Auto 0.10 10^3/uL (0.00-0.03); Immature Granulocytes Pct Auto 0.6 % (0.0-0.5); Lymphocytes Absolute Auto 1.6 10^3/uL (1.2-3.8); Mean Corpuscular HGB Conc 32.8 g/dL (29.9-35.2); Mean Corpuscular Hemoglobin 28.6 pg (25.9-34.0); Mean Corpuscular Volume 87.3 fL (80.0-94.0); Platelet Count 257 10^3/uL (150-450); Red Blood Count 3.95 10^6/uL (4.70-6.10); White Blood Count 16.7 10^3/uL (4.0-11.0)
[2024-10-24 07:38] LABS: Anion Gap 14.7; Blood Urea Nitrogen 45.0 mg/dL (7.0-18.0); Calcium 8.7 mg/dL (8.5-10.1); Carbon Dioxide 23.7 mmol/L (21.0-32.0); Chloride 100 mmol/L (98-107); Estimated GFR (African America 23 (>=60 mL/min/1.73m^2); Estimated GFR (Non-African Ame 19 (>=60 mL/min/1.73m^2); Glucose 106 mg/dL (74-106); Potassium 3.4 mmol/L (3.5-5.1); Sodium 135 mmol/L (136-145)
[2024-10-24 08:00] VITALS: BP 147/71; PULSE 65; TEMP 36.9; O2SAT 94
[2024-10-24] MEDS: CARVEDILOL 25 MG TABLET PO ×2 (08:14→17:08)
[2024-10-24] MEDS: AMLODIPINE BESYLATE 5 MG TABLET 10 MG PO (08:14)
[2024-10-24] MEDS: DOCUSATE SODIUM 100 MG CAPSULE PO ×2 (08:14→20:59)
[2024-10-24] MEDS: FUROSEMIDE 40 MG/4 ML VIAL IVP ×2 (08:57→20:46)
[2024-10-24] MEDS: POTASSIUM CHLORIDE 10 MEQ ER TABLET 20 MEQ PO (08:57)
--- NOTE | 2024-10-24 09:23 | PM.PN ---
Progress Note: Subjective Subjective Interval history: Patient is feeling somewhat better. Less pain and discomfort in the leg. No chest pain. No abdominal pain. No nausea or vomiting. Exam Narrative Exam Narrative: [pt is awake and alert. oriented to place, time and person, morbidly obese HEENT: [place] conjunctiva and NL buccal mucosa Neck: Supple, no tenderness Endocrine: No Thyromegaly. Vascular: No JVD or carotid bruit. Lymphatic: No cervical lymphadenopathy. Chest: CTA no DTP. Heart RRR, no extra sound or murmur. Abd: Soft, no tenderness, no rebound and no rigidity. Increase abd girth therefore clinically I could not exclude the possibility of intra abd mass or organomegaly. LE: No cyanosis or clubbing, quite extensive erythema, swelling, tenderness, induration and superficial ulceration involving the left leg from the knee down to the ankle. The left leg is triple size the right leg. No clinical evidence of superficial abscess or fluctuation. Faint dorsalis pedis pulse. Erythema, induration and tenderness are fading away compared to admission state Neuro: A A O. Nl speech, comprehension and attention. Nl and symetrical motor and tone examination through out. []] Constitutional Vital Signs, click to edit/add: Last Vital Signs Temp 98.4 F 10/24/24 08:00 Pulse 65 10/24/24 08:00 Resp 18 10/24/24 08:00 BP 147/71 H 10/24/24 08:00 Pulse Ox 94 L 10/24/24 08:00 O2 Del Method Room Air 10/24/24 08:00 Progress Note: Objective Labs Labs: Short CBC 10/24/24 Range/Units 07:06 WBC 16.7 H (4.0-11.0) 10^3/uL Hgb 11.3 L (14.0-18.0) g/dL Hct 34.5 L (42.0-54.0) % Plt Count 257 (150-450) 10^3/uL BMP 10/24/24 07:06 Sodium 135 L Potassium 3.4 L Chloride 100 Carbon Dioxide 23.7 BUN 45.0 H Creatinine 3.38 H Glucose 106 Calcium 8.7 Urine 10/23/24 Range/Units 21:56 Urine Color Lt. yellow (YELLOW) Urine Clarity Sl cloudy (CLEAR) Urine pH 5.5 (5.0-9.0) Ur Specific [place] 1.025 (1.005-1.025) Urine Protein 100 A (NEG/TRACE) mg/dL Urine Glucose (UA) Negative (NEGATIVE) mg/dL Progress Note: A&P Assessment and Plan (1) Acute kidney injury: (2) Cellulitis of left lower limb: (3) Sepsis: (4) Obesity: (5) Sleep apnea: (6) CKD (chronic kidney disease): Plan Sepsis present on admission. Please refer to initial sepsis evaluation, diagnosis and treatment completed in the emergency room department according to sepsis protocol Quite extensive cellulitis involving the right leg anteriorly, medially, laterally and posteriorly up to a point that the left leg is triple size the right leg I start the patient on broad-spectrum antibiotic I requested venous ultrasound rule out DVT. I requested the CT scan rule out deep tissue abscess or osteomyelitis. This came back negative for deep tissue abscess or osteomyelitis Thus far, no clinical evidence of compartment syndrome. Faint dorsalis pedis pulse but palpable I anticipate that patient would require long-term intravenous antibiotic as this may not get better in a few days. Acute on chronic kidney failure. Patient has chronic stage IV. GFR is in the mid 20s. This could be acute kidney failure or progression of chronic kidney disease Requested UA to see if he has any RBC or protein to suggest glomerulonephritis. No significant microscopic immaturity or proteinuria. This could be related to sepsis or postinfectious glomerulonephritis Requested renal ultrasound rule out obstructive uropathy. That came back negative. If his kidney function continues to worsen he would need referral to see nephrology and possible initiation of dialysis. Thus far there is no indication for urgent dialysis. I will refer patient to follow-up with nephrology in the outpatient setting. Obstructive sleep apnea. Patient will ask his family to bring his CPAP machine from home Morbid obesity. Patient weighs about 400 pounds. Diet, exercise and lifestyle modification. Patient may benefit from GLP-1. Patient may benefit from gastric bypass surgery. Noncompliance It appears that patient neglected the development of cellulitis involving his left leg 4 weeks if not months. Counseling and education were provided. DVT prophylaxis Heparin subcu Hypertension Resume preadmission home medications. Adjust accordingly Chronic medical conditions not listed above, incidental findings seen on labs and imaging. These would need to be addressed. Could be addressed when time and condition are appropriate. Could be addressed in the outpatient setting by PCP collaboration with other needed outpatient providers.
[2024-10-24 11:46] VITALS: BP 142/73; PULSE 68; TEMP 36.8; O2SAT 93
[2024-10-24] MEDS: CLONIDINE HCL 0.1 MG TABLET PO ×2 (13:16→20:59)
[2024-10-24 16:00] VITALS: BP 142/70; PULSE 68; O2SAT 94
[2024-10-24 20:00] VITALS: BP 136/77; PULSE 67; TEMP 36.6; O2SAT 92
[2024-10-25] VITALS (7 sets, daily range): BP systolic 139–167; BP diastolic 76–89; PULSE 68–76; TEMP 36.6–36.9; O2SAT 92–94
[2024-10-25] MEDS: VANCOMYCIN HCL 2,000 MG in 0.9 % SODIUM CHLORIDE 500 ML 250 MG IV (00:06)
[2024-10-25] MEDS: HEPARIN SODIUM (PORCINE) 5,000 UNIT/ML VIAL 5000 UNIT SUBQ ×2 (00:06→09:16)
[2024-10-25] MEDS: PIPERACILLIN SODIUM/TAZOBACTAM 3.375 GM in 0.9 % SODIUM CHLORIDE 50 ML IV ×2 (04:54→16:50)
[2024-10-25] MEDS: CLONIDINE HCL 0.1 MG TABLET PO ×3 (05:02→21:07)
[2024-10-25 06:38] LABS: Hematocrit 31.3 % (42.0-54.0); Hemoglobin 10.4 g/dL (14.0-18.0); Mean Corpuscular HGB Conc 33.2 g/dL (29.9-35.2); Mean Corpuscular Hemoglobin 28.7 pg (25.9-34.0); Mean Corpuscular Volume 86.2 fL (80.0-94.0); Platelet Count 279 10^3/uL (150-450); Red Blood Count 3.63 10^6/uL (4.70-6.10); White Blood Count 15.7 10^3/uL (4.0-11.0)
[2024-10-25 06:51] LABS: Anion Gap 16.0; Blood Urea Nitrogen 42.0 mg/dL (7.0-18.0); Calcium 8.6 mg/dL (8.5-10.1); Carbon Dioxide 22.3 mmol/L (21.0-32.0); Chloride 100 mmol/L (98-107); Estimated GFR (African America 25 (>=60 mL/min/1.73m^2); Estimated GFR (Non-African Ame 21 (>=60 mL/min/1.73m^2); Glucose 111 mg/dL (74-106); Potassium 3.3 mmol/L (3.5-5.1); Sodium 135 mmol/L (136-145)
[2024-10-25] MEDS: AMLODIPINE BESYLATE 5 MG TABLET 10 MG PO (09:16)
[2024-10-25] MEDS: CARVEDILOL 25 MG TABLET PO ×2 (09:16→16:50)
[2024-10-25] MEDS: DOCUSATE SODIUM 100 MG CAPSULE PO (09:16)
--- NOTE | 2024-10-25 09:45 | P.PN_ITS ---
Progress Note: Subjective Subjective Interval history: Persistent discomfort, redness and swelling of the left leg. No chest pain. No abdominal pain. No nausea or vomiting. Exam Narrative Exam Narrative: [pt is awake and alert. oriented to place, time and person, morbidly obese HEENT: [place] conjunctiva and NL buccal mucosa Neck: Supple, no tenderness Endocrine: No Thyromegaly. Vascular: No JVD or carotid bruit. Lymphatic: No cervical lymphadenopathy. Chest: CTA no DTP. Heart RRR, no extra sound or murmur. Abd: Soft, no tenderness, no rebound and no rigidity. Increase abd girth therefore clinically I could not exclude the possibility of intra abd mass or organomegaly. LE: No cyanosis or clubbing, quite extensive erythema, swelling, tenderness, induration and superficial ulceration involving the left leg from the knee down to the ankle. The left leg is triple size the right leg. No clinical evidence of superficial abscess or fluctuation. Faint dorsalis pedis pulse. Erythema, induration and tenderness are fading away compared to admission state Neuro: A A O. Nl speech, comprehension and attention. Nl and symetrical motor and tone examination through out. []] Constitutional Vital Signs, click to edit/add: Last Vital Signs Temp 98.3 F 10/25/24 07:36 Pulse 72 10/25/24 07:36 Resp 18 10/25/24 07:47 BP 158/85 H 10/25/24 07:36 Pulse Ox 92 L 10/25/24 07:36 O2 Del Method Room Air 10/25/24 07:36 Progress Note: Objective Labs Labs: Short CBC 10/25/24 Range/Units 06:22 WBC 15.7 H (4.0-11.0) 10^3/uL Hgb 10.4 L (14.0-18.0) g/dL Hct 31.3 L (42.0-54.0) % Plt Count 279 (150-450) 10^3/uL BMP 10/25/24 06:22 Sodium 135 L Potassium 3.3 L Chloride 100 Carbon Dioxide 22.3 BUN 42.0 H Creatinine 3.17 H Glucose 111 H Calcium 8.6 Progress Note: A&P Assessment and Plan (1) Acute kidney injury: (2) Cellulitis of left lower limb: (3) Sepsis: (4) Obesity: (5) Sleep apnea: (6) CKD (chronic kidney disease): Plan Sepsis present on admission. Please refer to initial sepsis evaluation, diagnosis and treatment completed in the emergency room department according to sepsis protocol Quite extensive cellulitis involving the right leg anteriorly, medially, laterally and posteriorly up to a point that the left leg is triple size the right leg Continue Vanco and Zosyn manage by pharmacy I requested venous ultrasound rule out DVT. Negative for DVT but positive for superficial saphenous vein thrombosis. I started patient on Xarelto 10 mg daily for DVT prophylaxis. Recommend repeat ultrasound in 7 to 10 days to exclude the progression into the deep system. I requested the CT scan rule out deep tissue abscess or osteomyelitis. This came back negative for deep tissue abscess or osteomyelitis Thus far, no clinical evidence of compartment syndrome. Faint dorsalis pedis pulse but palpable I anticipate that patient would require long-term intravenous antibiotic as this may not get better in a few days. Acute on chronic kidney failure. Patient has chronic stage IV. GFR is in the mid 20s. This could be acute kidney failure or progression of chronic kidney disease Requested UA to see if he has any RBC or protein to suggest glomerulonephritis. No significant microscopic immaturity or proteinuria. This could be related to sepsis or postinfectious glomerulonephritis Requested renal ultrasound rule out obstructive uropathy. That came back negative. His kidney function improved over the last 48 hours. Thus far there is no indication for urgent dialysis. Continue diuresis to keep patient in a euvolemic state I will refer patient to follow-up with nephrology in the outpatient setting. Obstructive sleep apnea. Patient will ask his family to bring his CPAP machine from home Morbid obesity. Patient weighs about 400 pounds. Diet, exercise and lifestyle modification. Patient may benefit from GLP-1. Patient may benefit from gastric bypass surgery. Noncompliance It appears that patient neglected the development of cellulitis involving his left leg 4 weeks if not months. Counseling and education were provided. DVT prophylaxis Heparin subcu Hypertension Resume preadmission home medications. Adjust accordingly Chronic medical conditions not listed above, incidental findings seen on labs and imaging. These would need to be addressed. Could be addressed when time and condition are appropriate. Could be addressed in the outpatient setting by PCP collaboration with other needed outpatient providers.
[2024-10-25] MEDS: POTASSIUM CHLORIDE 10 MEQ ER TABLET 20 MEQ PO (10:46)
[2024-10-25] MEDS: FUROSEMIDE 20 MG/2 ML VIAL 40 MG IV ×2 (10:47→22:50)
[2024-10-25] MEDS: RIVAROXABAN 10 MG TABLET PO (10:47)
[2024-10-26] VITALS (7 sets, daily range): BP systolic 158–168; BP diastolic 83–93; PULSE 70–72; TEMP 36.6–37.2; O2SAT 91–95
[2024-10-26] MEDS: PIPERACILLIN SODIUM/TAZOBACTAM 3.375 GM in 0.9 % SODIUM CHLORIDE 50 ML IV (04:44)
[2024-10-26] MEDS: CLONIDINE HCL 0.1 MG TABLET PO (05:12)
[2024-10-26 06:21] LABS: Anion Gap 15.9; Blood Urea Nitrogen 40.0 mg/dL (7.0-18.0); Calcium 8.6 mg/dL (8.5-10.1); Carbon Dioxide 23.4 mmol/L (21.0-32.0); Chloride 100 mmol/L (98-107); Estimated GFR (African America 27 (>=60 mL/min/1.73m^2); Estimated GFR (Non-African Ame 22 (>=60 mL/min/1.73m^2); Glucose 123 mg/dL (74-106); Potassium 3.3 mmol/L (3.5-5.1); Sodium 136 mmol/L (136-145)
--- NOTE | 2024-10-26 08:10 | CM.NOTE ---
Rounds made with Dr. Santana, discussed plan of care with pt. Pt will need halfway IV antibiotic as outpatient. Pt is in agreement to have treatment in [facility]. 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 Possible discharge to home tomorrow.
[2024-10-26] MEDS: CARVEDILOL 25 MG TABLET PO ×2 (08:41→17:43)
[2024-10-26] MEDS: AMLODIPINE BESYLATE 5 MG TABLET 10 MG PO (08:41)
[2024-10-26] MEDS: TORSEMIDE 20 MG TABLET 40 MG PO (08:41)
[2024-10-26] MEDS: RIVAROXABAN 10 MG TABLET PO (08:41)
[2024-10-26] MEDS: POTASSIUM CHLORIDE 10 MEQ ER TABLET 20 MEQ PO (08:41)
[2024-10-26] MEDS: HYDRALAZINE HCL 25 MG TABLET PO ×2 (08:42→20:05)
--- NOTE | 2024-10-26 08:58 | P.PN_ITS ---
Progress Note: Subjective Subjective Interval history: Persistent discomfort, redness and swelling of the left leg. No chest pain. No abdominal pain. No nausea or vomiting. Exam Narrative Exam Narrative: [pt is awake and alert. oriented to place, time and person, morbidly obese HEENT: [place] conjunctiva and NL buccal mucosa Neck: Supple, no tenderness Endocrine: No Thyromegaly. Vascular: No JVD or carotid bruit. Lymphatic: No cervical lymphadenopathy. Chest: CTA no DTP. Heart RRR, no extra sound or murmur. Abd: Soft, no tenderness, no rebound and no rigidity. Increase abd girth therefore clinically I could not exclude the possibility of intra abd mass or organomegaly. LE: No cyanosis or clubbing, quite extensive erythema, swelling, tenderness, induration and superficial ulceration involving the left leg from the knee down to the ankle. The left leg is triple size the right leg. No clinical evidence of superficial abscess or fluctuation. Faint dorsalis pedis pulse. Erythema, induration and tenderness are fading away compared to admission state Neuro: A A O. Nl speech, comprehension and attention. Nl and symetrical motor and tone examination through out. []] Constitutional Vital Signs, click to edit/add: Last Vital Signs Temp 99.0 F 10/26/24 08:45 Pulse 72 10/26/24 08:45 Resp 18 10/26/24 08:45 BP 168/93 H 10/26/24 08:45 Pulse Ox 92 L 10/26/24 08:45 O2 Del Method Room Air 10/26/24 08:45 Progress Note: Objective Labs Labs: [facility] 10/26/24 05:49 Sodium 136 Potassium 3.3 L Chloride 100 Carbon Dioxide 23.4 BUN 40.0 H Creatinine 3.04 H Glucose 123 H Calcium 8.6 Progress Note: A&P Assessment and Plan (1) Acute kidney injury: (2) Cellulitis of left lower limb: (3) Sepsis: (4) Obesity: (5) Sleep apnea: (6) CKD (chronic kidney disease): Plan Sepsis present on admission. Please refer to initial sepsis evaluation, diagnosis and treatment completed in the emergency room department according to sepsis protocol Quite extensive cellulitis involving the right leg anteriorly, medially, laterally and posteriorly up to a point that the left leg is triple size the right leg Continue Vanco and Zosyn manage by pharmacy I requested venous ultrasound rule out DVT. Negative for DVT but positive for superficial saphenous vein thrombosis. I started patient on Xarelto 10 mg daily for DVT prophylaxis. Recommend repeat ultrasound in 7 to 10 days to exclude the progression into the deep system. I requested the CT scan rule out deep tissue abscess or osteomyelitis. This came back negative for deep tissue abscess or osteomyelitis Thus far, no clinical evidence of compartment syndrome. Faint dorsalis pedis pulse but palpable Persistent but improved extensive cellulitis involving the left leg from the knee down to the foot. I recommend patient to have long-term IV antibiotic. We will arrange for outpatient ertapenem daily infusion for 10 days in addition to oral doxycycline to cover possibility of MRSA Saphenous vein thrombus Start the patient on Xarelto 10 mg daily for DVT prophylaxis Patient will continue to have increased risk of progression into the deep system while he has active infection therefore I will continue Xarelto for the next 15 days post discharge Recommend repeat ultrasound in 10 days to exclude progression into the deep venous system Acute on chronic kidney failure. Patient has chronic stage IV. GFR is in the mid 20s. This could be acute kidney failure or progression of chronic kidney disease Requested UA to see if he has any RBC or protein to suggest glomerulonephritis. No significant microscopic immaturity or proteinuria. This could be related to sepsis or postinfectious glomerulonephritis Requested renal ultrasound rule out obstructive uropathy. That came back negative. His kidney function improved over the last 48 hours. Thus far there is no indication for urgent dialysis. Continue diuresis to keep patient in a euvolemic state I will refer patient to follow-up with nephrology in the outpatient setting. Obstructive sleep apnea. Patient will ask his family to bring his CPAP machine from home Morbid obesity. Patient weighs about 400 pounds. Diet, exercise and lifestyle modification. Patient may benefit from GLP-1. Patient may benefit from gastric bypass surgery. Noncompliance It appears that patient neglected the development of cellulitis involving his left leg 4 weeks if not months. Counseling and education were provided. DVT prophylaxis Heparin subcu Hypertension Resume preadmission home medications. Adjust accordingly Will discontinue clonidine due to potential side effect and rebound hypertensi on. I started patient on Demadex 40 mg daily. I started patient on hydralazine 25 mg twice daily with additional titration may be needed to keep systolic between 140 and 160 Chronic medical conditions not listed above, incidental findings seen on labs and imaging. These would need to be addressed. Could be addressed when time and condition are appropriate. Could be addressed in the outpatient setting by PCP collaboration with other needed outpatient providers.
[2024-10-26] MEDS: ERTAPENEM SODIUM 0.5 GM in 0.9 % SODIUM CHLORIDE 50 ML IV (10:40)
[2024-10-26] MEDS: 0.9 % SODIUM CHLORIDE 250 ML 10 ML IV (10:40)
--- NOTE | 2024-10-26 11:29 | CM.NOTE ---
Pt at discharge will f/u with [facility] for additional 10 days of IV antibiotics. Called centralized scheduling to set up appointment to start on 10/28 3:00. Copy also given to pharmacy. Updated pt on date and time for start after discharge. Pt will discharge to home 10/27.
[2024-10-26] MEDS: ACETAMINOPHEN 325 MG TABLET 650 MG PO (17:42)
[2024-10-26] MEDS: VANCOMYCIN HCL 2,000 MG in 0.9 % SODIUM CHLORIDE 500 ML 250 MG IV (22:23)
[2024-10-27 03:49] VITALS: BP 176/74; PULSE 71; TEMP 37.3; O2SAT 93
[2024-10-27 04:21] VITALS: BP 168/74
[2024-10-27 06:10] LABS: Anion Gap 15.5; Blood Urea Nitrogen 39.0 mg/dL (7.0-18.0); Calcium 9.0 mg/dL (8.5-10.1); Carbon Dioxide 24.8 mmol/L (21.0-32.0); Chloride 101 mmol/L (98-107); Estimated GFR (African America 28 (>=60 mL/min/1.73m^2); Estimated GFR (Non-African Ame 23 (>=60 mL/min/1.73m^2); Glucose 104 mg/dL (74-106); Potassium 3.3 mmol/L (3.5-5.1); Sodium 138 mmol/L (136-145)
[2024-10-27] MEDS: AMLODIPINE BESYLATE 5 MG TABLET 10 MG PO (09:04)
[2024-10-27] MEDS: TORSEMIDE 20 MG TABLET 40 MG PO (09:04)
[2024-10-27] MEDS: RIVAROXABAN 10 MG TABLET PO (09:04)
[2024-10-27] MEDS: CARVEDILOL 25 MG TABLET PO (09:04)
[2024-10-27] MEDS: HYDRALAZINE HCL 25 MG TABLET PO ×2 (09:04→10:59)
[2024-10-27] MEDS: ACETAMINOPHEN 325 MG TABLET 650 MG PO (09:05)
[2024-10-27] MEDS: POTASSIUM CHLORIDE 10 MEQ ER TABLET 20 MEQ PO ×2 (09:05→10:59)
[2024-10-27 09:08] VITALS: BP 177/95; PULSE 77; TEMP 37.2; O2SAT 92
--- NOTE | 2024-10-27 09:15 | CM.NOTE ---
Rounds made with Dr. Santana, pt will discharge to home today. Pt will f/u with PCP, wound, and Dr. Awan and appointments are scheduled. Called pharmacy regarding IV dose of vancomycin for today. Vancomycin at this time is q 36hr, next dose to be 10/28 scheduled in [facility]. Updated RN
[2024-10-27] MEDS: ERTAPENEM SODIUM 0.5 GM in 0.9 % SODIUM CHLORIDE 50 ML IV (10:29)
[2024-10-27 10:33] VITALS: BP 151/74
--- NOTE | 2024-10-27 10:36 | P.DS_ITS ---
DS: Providers Provider Date of admission: 10/23/24 03:09 Primary care physician: JOHANN LEE DS: Diagnosis Discharge Diagnosis (1) Acute kidney injury: (2) Cellulitis of left lower limb: (3) Sepsis: (4) Obesity: (5) Sleep apnea: (6) CKD (chronic kidney disease): Plan As listed above and below and others that are not listed DS: Summary Hospital Course Hospital Course: Mr. Vallejo is a 49-year-old gentleman who came in with left leg pain, swelling and redness and was found to have the following Sepsis present on admission. Please refer to initial sepsis evaluation, diagnosis and treatment completed in the emergency room department according to sepsis protocol Quite extensive cellulitis involving the right leg anteriorly, medially, laterally and posteriorly up to a point that the left leg is triple size the right leg Treated with Vanco and Zosyn manage by pharmacy I requested venous ultrasound rule out DVT. Negative for DVT but positive for superficial saphenous vein thrombosis. I started patient on Xarelto 10 mg daily for DVT prophylaxis. Recommend repeat ultrasound in 7 to 10 days to exclude the progression into the deep system. I requested the CT scan rule out deep tissue abscess or osteomyelitis. This ca me back negative for deep tissue abscess or osteomyelitis Thus far, no clinical evidence of compartment syndrome. Faint dorsalis pedis pulse but palpable Persistent but improved extensive cellulitis involving the left leg from the knee down to the foot. I recommend patient to have long-term IV antibiotic. We will arrange for outpatient ertapenem daily infusion for 10 days in addition to oral doxycycline to cover possibility of MRSA Outpatient CBC and CRP weekly for 3 weeks, results to be communicated to PCP. Saphenous vein thrombus Treatment is a debatable between conservative management versus full anticoagulation. Warm compresses, leg elevation. Started the patient on Xarelto 10 mg daily for DVT prophylaxis Patient will continue to have increased risk of progression into the deep system while he has active infection therefore I will continue Xarelto for the next 20 days post discharge Recommend repeat ultrasound in 10 days to exclude progression into the deep venous system. Results to be communicated to PCP Acute on chronic kidney failure. Acute component had resolved otherwise patient kidney function is back to his stage IV kidney failure with a baseline creatinine around 2.8. Patient has chronic stage IV. GFR is in the mid 20s. This could be acute kidney failure or progression of chronic kidney disease Requested UA to see if he has any RBC or protein to suggest glomerulonephritis. No significant microscopic immaturity or proteinuria. This could be related to sepsis or postinfectious glomerulonephritis Requested renal ultrasound rule out obstructive uropathy. That came back negative. His kidney function improved over the last 96 hours. Thus far there is no indication for urgent dialysis. Continue diuresis to keep patient in a euvolemic state I will refer patient to follow-up with nephrology in the outpatient setting. Obstructive sleep apnea. Patient will ask his family to bring his CPAP machine from home Morbid obesity. Patient weighs about 400 pounds. Diet, exercise and lifestyle modification. Patient may benefit from GLP-1. Patient may benefit from gastric bypass surgery. Noncompliance It appears that patient neglected the development of cellulitis involving his left leg 4 weeks if not months. Counseling and education were provided. DVT prophylaxis Heparin subcu patient will be discharged home on Xarelto 10 mg daily for 20 days. Repeat ultrasound in 10 days to exclude progression into the deep system. Hypertension Resume preadmission home medications. Adjust accordingly Will discontinue clonidine due to potential side effect and rebound hypertension. I started patient on Demadex 40 mg daily. I started patient on hydralazine 25 mg twice daily with additional titration may be needed to keep systolic between 140 and 160. Hydralazine has been increased to 50 mg twice daily. Chronic medical conditions not listed above, incidental findings seen on labs and imaging. These would need to be addressed. Could be addressed when time and condition are appropriate. Could be addressed in the outpatient setting by PCP collaboration with other needed outpatient providers. Patient has multiple complex medical issues as listed above and others that are not listed. All appear to be stable. I do not have any clear or strong clinical justification to extend inpatient hospitalization. Patient however will require close and frequent monitoring as well as additional work-up, investigation and therapeutic intervention that could take place from this point on post discharge. That is to prevent relapse, decompensation, rehospitalization and other medical implications. I instructed patient to ask her primary care doctor to obtain [facility] record entirely to address abnormalities seen on labs and imaging that I have and have not addressed during this hospitalization, follow-up on pending blood work, imaging and pathology is if available and to follow-up on needed medical care in the outpatient setting. Time Spent with Patient Time attestation: Total time spent providing and/or coordinating discharge services: Exam Constitutional Vital Signs, click to edit/add: Last Vital Signs Temp 98.9 F 10/27/24 09:08 Pulse 77 10/27/24 09:08 Resp 18 10/27/24 09:08 BP 151/74 H 10/27/24 10:33 Pulse Ox 92 L 10/27/24 09:08 O2 Del Method Room Air 10/27/24 09:08 DS: Data Data Completed and Pending Labs on day of discharge: Labs from last 24 hours 10/27/24 05:49 Sodium 138 Potassium 3.3 L Chloride 101 Carbon Dioxide 24.8 Anion Gap 15.5 BUN 39.0 H Creatinine 2.86 H Est GFR ( Amer) 28 L Est GFR (Non-Af Amer) 23 L BUN/Creatinine Ratio 13.6 Glucose 104 Calcium 9.0 Preliminary micro results at discharge 10/23/24 00:45 Blood Culture Result 2 - Preliminary Blood - Left Antecubital NO GROWTH AT 36-48 HOURS. FINAL TO FOLLOW. 10/23/24 00:40 Blood Culture Result 1 - Preliminary Blood - Right Antecubital NO GROWTH AT 36-48 HOURS. FINAL TO FOLLOW. Discharge Plan Discharge Disposition: Home, Self-Care Condition: Good Discharge Medications: New hydralazine 50 mg tablet 50 mg PO BID Qty: 60 2RF Xarelto 10 mg Tablet 10 mg PO QD Qty: 20 0RF torsemide 40 mg tablet 40 mg PO QD Qty: 30 1RF doxycycline monohydrate 100 mg tablet 100 mg PO BID 10 Days Qty: 20 0RF potassium chloride 10 mEq Tablet,Er Particles/Crystals 10 meq PO QD Qty: 30 0RF ertapenem 1 gram recon soln 500 mg IV DAILY 10 Days Continued amlodipine 10 mg tablet 10 mg PO DAILY Qty: 30 11RF carvedilol 25 mg tablet 25 mg PO Q12H Discontinued hydrochlorothiazide 25 mg tablet 25 mg PO DAILY clonidine HCl 0.1 mg Tablet 0.1 mg PO TID Qty: 90 11RF Print Language: [place] Activity Restrictions/Additional Instructions: I may not have addressed or treated all of your medical illnesses or the abnormal blood work or imaging studies during this hospitalization. Please ask your primary care provider to obtain [facility] records entirely to follow up on all of the abnormal physical, laboratory, and imaging findings that I have not addressed. Please return back to the emergency room or seek medical attention if your symptoms worsen or return. Recommended blood test CBC BMP and CRP weekly for 3 weeks, results to be communicated to primary care doctor. Recommend repeat venous ultrasound of your left leg to make sure that the clot does not go into the deep vein system. Meanwhile continue to take a blood thinner Xarelto 1 tablet daily for 20 days. Please return back to the emergency room if you develop worsening pain, swelling and redness in the left leg or if you develop any fever or chills Please follow-up with your primary care doctor, heart doctor Dr. Sanchez and new kidney doctor Dr. Porras. Discharging you from [facility] does not mean that your medical care ends here and now. You may still need additional monitoring, work up, investigation, and treatment plan to be handled from this point on by out patient providers including your primary care provider and specialists. For any medication question, please contact your retail pharmacist or your primary care provider. Thank you. Forms: Portal Instructions Follow Up Appointments: Nirav. 11/03 @ 3pm with Dr. Porras (Nephrology) [facility] Pam Plazausky [phone] Sat. 11/04 @ 1:30pm [facility] [address] [place] [address] , [address], [place] [phone] . 11/12 @ 2:30pm with Dr. Lee [facility] Jacky Melendez [address], [place] [phone]
--- NOTE | 2024-10-27 10:54 | CM.NOTE ---
Pt provided with oupatient requisition for weekly CRP,CMP, and CBC x3 weeks. L leg Doppler repeat in 10 days f/u for venous thrombosis r/o progression into deep vein system. Pt verbalizes understanding.
--- NOTE | 2024-10-27 10:57 | CM.NOTE ---
Faxed outpatient orders to lab and radiology.
--- NOTE | 2024-10-27 11:26 | PC.NURSE ---
RN clarified patient is being dcd on ertapenem IV. This RN will removed the PIV from his left AC and the [facility] can place a new one tomorrow
--- NOTE | 2024-10-28 09:30 | CM.NOTE ---
Called Dr. Hanley's office to schedule f/u appointment for pt. Left message, updated Dr. Santana.
--- NOTE | 2024-10-28 09:39 | CM.NOTE ---
Call back from Dayan's office appointment scheduled for Nov 04 at 10:45. Called pt for update of new appointment and additional medication being called in 10/27 to pharmacy. Pt verbalizes understanding.
--- NOTE | 2024-10-28 12:16 | CM.NOTE ---
Unable to reach , called 's phone and updated with new appointment scheduled for vascular Dr. Bhakta Nov 04 @10:45. 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 verbalizes understanding. Pt will also be seen in [facility] today for IV antibiotics. Left paper with Dr. Bhakta's appointment information to be given to pt on arrival.
== END 2024-10-27 12:19 | disposition home or self-care (01) | DRG 872 ==
LOC: ER 10-23 02:37 → MS 10-23 03:19
PROVIDERS: Admitting Provider Internal Medicine; Emergency Provider Emergency Medicine; PCP Family Medicine; Visit Provider Internal Medicine
DX: A41.9 Sepsis, unspecified organism (principal); L03.116 Cellulitis of left lower limb; N17.9 Acute kidney failure, unspecified; N18.4 Chronic kidney disease, stage 4 (severe); I13.0 Hypertensive heart and chronic kidney disease with heart failure and stage 1 through stage 4 chronic kidney disease, or unspecified chronic kidney disease; I82.812 Embolism and thrombosis of superficial veins of left lower extremity; Z68.43 Body mass index [BMI] 50.0-59.9, adult; E66.01 Morbid (severe) obesity due to excess calories; G47.33 Obstructive sleep apnea (adult) (pediatric); Z91.198 Patient's noncompliance with other medical treatment and regimen for other reason; Z79.899 Other long term (current) drug therapy; I50.9 Heart failure, unspecified
CPT/HCPCS: 36415; 71045; 73700; 76775; 80048; 80053; 81001; 83605; 84484; 85025; 85027; 85378; 85610; 85730; 86140; 87040; 87086; 93005; 93971; 96365; 96367; 96372; 99285; J0696; J1335; J1644; J1650; J1938; J2543; J3373

== ENCOUNTER 2024-10-29 14:24 | Emergency (ER) | payer BC, SELFPAY ==
[2024-10-29 14:29] VITALS: BP 161/87; PULSE 72; TEMP 36.6; O2SAT 97; BMI 52.2
--- OUTSIDE RECORDS SUMMARY | 2024-10-29 14:29 | XMS_ITS | Encounter Summary ---
Author Organization [facility] Address [address] [place] [address] Phone Care Team Providers Care Referral Agent Name Role Phone Unavailable Primary Care Provider Unavailabl e Encounter Details Date Type Department Care Team (Late st Contact Info) Description 08/10/2024 Scanned Document [facility] [address] [place] [address] Scanning, Generic Provider Social History Tobacco Use Types Packs/Day Years Used Date Smoking Tobacco: Never Assessed Sex and Gender Information Value Date Recorded Sex Assigned at Not on file Legal Sex Male 10:53 AM EDT Gender Identity Not on file Sexual Orientation Not on file documented as of this encounter Plan of Treatment Not on file documented as of this encounter Procedures Procedure Name Priority Date/Time Associated Diagnosis Comments ECHOCARDIOGRAM 08/10/2024 documented in this encounter Results * Echocardiogram (08/10/2024) Narrative 08/10/2024 Ordered by an unspecified provider. us Generic Provider Scanning CV ECHO PROCEDURES Fin al Result documented in this encounter Visit Diagnoses Not on filedocumented in this encounter
--- OUTSIDE RECORDS SUMMARY | 2024-10-29 14:29 | XMS_ITS | Clinical Summary ---
Author Organization [facility] Address [address] [place] [address] Care Team Providers Care Wrecker Driver Name Role Phone Unavailable Primary Care Provider Unavailabl e Social History Tobacco Use Types Packs/Day Years Used Date Smoking Tobacco: Never Assessed Sex and Gender Information Value Date Recorded Sex Assigned at Not on file Legal Sex Male 9:49 PM EDT Gender Identity Not on file Sexual Orientation Not on file Last Filed Vital Signs Vital Sign Reading Time Taken Comments Blood Pressure 162/98 01/16/2019 12:00 PM EST Pulse - - Temperature - - Respiratory Rate - - Oxygen Saturation - - Inhaled Oxygen Concentration - - Weight 159 kg (351 lb) 01/16/2019 12:00 PM EST Height 180.3 cm (5' 11 ) 01/16/2019 12:00 PM EST Body Mass Index 48.95 01/16/2019 12:00 PM EST Plan of Treatment Not on file Insurance [facility]
--- OUTSIDE RECORDS SUMMARY | 2024-10-29 14:29 | XMS_ITS | Clinical Summary ---
Author Organization [facility] Address [address] [place] [address] Phone Care Team Providers Care Fagoting Machine Operator Name Role Phone Unavailable Primary Care Provider Unavailabl e Encounters Date Type Department Care Team Description 08/10/2024 Scanned Document [facility] [address] [address] Scanning, Generic Provider from Last 3 Months Social History Tobacco Use Types Packs/Day Years Used Date Smoking Tobacco: Never Assessed Sex and Gender Information Value Date Recorded Sex Assigned at Not on file Legal Sex Male 10:53 AM EDT Gender Identity Not on file Sexual Orientation Not on file Plan of Treatment Health Maintenance Due Date Last Done Comments CT Colonography 1973 Colonoscopy 1973 Colorectal Cancer Screening 1973 FIT-DNA (Cologuard) 1973 FIT 1973 HIV Screening 1973 Lipid Panel 1973 Sigmoidoscopy 1973 Yearly Adult Physical 1973 MMR Vaccines (1 of 1 - Stand gurmeet series) 1974 Hepatitis C Screening 1991 Hepatitis B Vaccines (1 of 3 - 19+ 3-dose series) 01/03/1992 DTaP/Tdap/Td Vaccines (1 - Tdap) 1995 PSA Prostate Cancer Screening 2018 Pneumococcal Vaccine (1 of 1 - PCV) 2023 Zoster Vaccines (1 of 2) 2023 COVID-19 Vaccine (1 - 2023-2 5 season) 2023 Influenza Vaccine (#1) 2024 HIB Vaccines Aged Out No longer eligi ble based on patient's age to complete this topic HPV Vaccines Aged Out No longer eligi ble based on patient's age to complete this topic Hepatitis A Vaccines Aged Out No long er eligible based on patient's age to complete this topic IPV Vaccines Aged Out No longer eligi ble based on patient's age to complete this topic Meningococcal Vaccine Aged Out No anjana adrianna eligible based on patient's age to complete this topic Rotavirus Vaccines Aged Out No longer eligible based on patient's age to complete this topic Procedures Procedure Name Priority Date/Time Associated Diagnosis Comments ECHOCARDIOGRAM 08/10/2024 from Last 3 Months Results * Echocardiogram (08/10/2024) Narrative 08/10/2024 Ordered by an unspecified provider. us Generic Provider Scanning CV ECHO PROCEDURES Fin al Result from Last 3 Months Insurance [facility]
[2024-10-29] MEDS: DIPHENHYDRAMINE HCL 50 MG/ML VIAL 25 MG IVP (14:50)
[2024-10-29] MEDS: METHYLPREDNISOLONE SOD SUCC PF 125 MG/2 ML VIAL IVP (14:50)
--- OUTSIDE RECORDS SUMMARY | 2024-10-29 15:01 | XMS_ITS | CCD ---
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 Primary Care Provider Rosa, DO Juvencio M. Referring Provider [phone] MD Eber Krause Attending Provider Rosa, Juvencio Unavailable Michelle Cristina Unavailable Rosa, DO Juvencio M. Primary Care Provider MICHELE Cristina Attending Provider [phone] ROSA, JUVENCIO M Primary Care Physician Rosa, DO Juvencio M. Primary Care Provider MICHELE Cristina Attending Provider [phone] EDVIN HASTINGS. Attending Unavailab EDVIN Webb Referring Unavailab EDVIN Webb Admitting Unavailab le ROSA, JUVENCIO M Admitting Unavailable ROSA, JUVENCIO M Attending Unavailable ROSA, JUVENCIO M Referring Unavailable Rosa DO, Juvencio M. Primary Care Provider Edvin Hastings MD Attending Provider Rosa DO, Juvencio M. Primary Care Provider Daniel Gloria MD Attending Provider Rosa DO, Juvencio M. Primary Care Provider Rosa DO, Juvencio MBaljeet Referring Provider Daniel Gloria MD Attending Provider Rosa DO, Juvencio M. Attending Provider [phone] Edvin Hastings MD Attending Provider [phone] Rosa DO, Juvencio M. Primary Care Provider Daniel Gloria MD Attending Provider Randi Garcia DO Attending Provider [phone] María Santana MD Attending Provider Daniel Gloria Attending Unavai lable Rosa, Juvencio M. Primary Care Unavailable Daniel Gloria Admitting Unavai lable Rosa, Juvencio M. Primary Care Unavailable Edvin Hastings Admitting UnavailEdvin Perez Attending UnavailDaniel Sarabia Attending Unavai lable Rosa, Juvencio M. Primary Care Unavailable Daniel Gloria Admitting Unavai lable Rosa, Juvencio M. Primary Care Unavailable María Santana Admitting Unavailable María Santana Attending Unavailable Daniel Gloria Attending Unavai lable Rosa, Juvencio M. Primary Care Unavailable Daniel Gloria Admitting Unavai lable Medications Current Medications Medication Drug Class(es) Dates Sig (Normalized) Sig (Original) acetaminophen 500 mg oral tablet (16 sources) Start: 05-07-2023 take 1 tablet by mouth every six hours as needed take 1 tablet by mouth every six hours Tylenol Extra Strength 500 MG 1 tablet as needed Orally every 6 hrs Active amLODIPine 10 mg oral tablet (20 sources) Dihydropyridine Calcium Channel Jasson Start: 02-10-2024 take 1 tablet by mouth once daily Start: 05-07-2023 End: 12-25-2023 take 5 mg [...] day(s) Active carvedilol 25 mg oral tablet (7 sources) alpha-Adrenergic Jasson, beta-Adrenergic Jasson Start: 07-08-2024 take 1 tablet by mouth twice daily at mealtime cloNIDine hydrochloride 0.1 mg oral tablet (20 sources) Central alpha-2 Adrenergic Agonist Start: 07-08-2024 take 1 tablet by mouth three times daily Start: 03-11-2024 End: 06-10-2024 take 1 tablet [...] 2024 1:00am July 08, 2024 3:16pm CPAP (14 sources) Start: 05-07-2023 CPAP Active 0 .Route .MEDSUPPLY May 07, 2023 12:00am Medication Name: CPAP Machine; Note: Source Status: Taking; Provider: Rosa Henning ( ) Start: 05-07-2023 CPAP Active 0 .Route .MEDSUPPLY May 07, 2023 1:00am Medication Name: CPAP Machine; Note: Source Status: Taking; Provider: Rosa Henning ( ) Start: 05-07-2023 CPAP Active 0 .ROUTE .MEDSUPPLY May 07, 2023 1:00am Medication Name: CPAP Machine; Note: Source Status: Taking; Provider: JuvencioRosa ( ) CPAP Machine (6 sources) CPAP Machine Active ergocalciferol 1.25 mg oral capsule (9 sources) Provitamin D2 Compound Start: 10-17-19 take 1 capsule by mouth every week Vitamin D (Ergocalciferol ) 1.25 MG (08229 UT) 1 capsule Orally weekly for 90 days Oct, Active hydroCHLOROthiazide 25 mg oral tablet (20 sources) Thiazide Diuretic Start: 10-14-19 take 1 tablet by mouth once daily Start: 09-17-2024 End: 10-13-2024 take 1 tablet by mouth once daily Hydrochlorothiazide 25 mg tablet Discontinued 25 MG PO Daily September 17, 2024 3:48pm October 13, 2024 1:53pm Start: 06-18-2024 End: 09-17-2024 take 1 tablet [...] 24 hr Discontinued 200 MG PO Daily 90 90 December 25, 2023 3:33pm March 31, 2024 3:24pm Start: 05-07-2023 End: 12-25-2023 take 1 tablet by mouth once daily Metoprolol Succinate 100 mg tablet extended release 24 hr Discontinued 100 MG PO Daily 90 90 May 07, 2023 1:00am December 25, 2023 [...] Translations: [Somnolence] Onset: 03-08-2021 Resolved: 03-08-2021 Episodic Essential hypertension (20 sources) Essential (primary) hypertension; Translations: [Malignant hypertension] Onset: 01-23-2021 Resolved: 11-20-2021 Chronic Malaise and fatigue (20 sources) Chronic fatigue, unspecified; Translations: [Fatigue] Onset: 01-23-2021 Resolved: 05-24-2021 Chronic Other connective tissue disease (8 sources) Other specified soft tissue disorders; Translations: [Swelling of limb] 12-25-2023 Episodic Other connective tissue disease (12 sources) Swelling of left lower limb; Translations: [Other specified soft tissue disorders] 2024 Episodic Other diseases of veins and lymphatics (11 sources) Venous insufficiency of leg; Translations: [Venous insufficiency (chronic) (peripheral)] 02-13-2024 Episodic Other diseases of veins and lymphatics (5 sources) Venous insufficiency (chronic) (peripheral); Translations: [Venous (peripheral) insufficiency, unspecified] 02-13-2024 Episodic Other lower respiratory disease (8 sources) Dyspnea on exertion; Translations: [Other forms [...] Classification Problem Date Documented Da te Episodic/Chronic Diabetes mellitus without complication (1 source) Other abnormal glucose; Translations: [Other abnormal glucose] Onset: 07-13-2024 Episodic Varicose veins of lower extremity (1 source) Varicose veins of bilateral lower extremities with pain; Translations: [Varicose veins of bilateral lower extremities with pain] Onset: 02-05-2024 Episodic Results Test Name Value Interpretation Reference Range Facility Basophils Auto (Bld) [#/Vol] Ordered By: María Santana on 10-24-2024 Basophils (Bld) [#/Vol] 0.1 10 3/uL 0.0-0.1 [facility] Basophils/100 WBC Auto (Bld) Ordered By: María Santana on 10-24-2024 Basophils/100 WBC (Bld) 0.4 % 0.2-2.0 [facility] Eosinophils/100 WBC Auto (Bl d)Ordered By: María Santana on 10-24-2024 Eosinophils/100 WBC (Bld) 0.4 % Low 0.9-7.0 [facility] Erythrocyte distribution wid th Auto (RBC) [Ratio]Ordered By: María Santana on 10-24-2024 Erythrocyte distribution width (RBC) [Ratio] 13.5 % 11.0-15.0 [facility] Glomerular filtration rate ( GFR) estimation in non- AmericanOrdered By: María Santana on 10-24-2024 GFR/1.73 sq M.predicted among non-blacks MDRD (S/P/Bld) [Vol rate/Area] 19 mL/min/{1.73_m2} Low >=60 mL/min/1.7 3m 2 [facility] Hematocrit Auto (Bld) [Volum e fraction]Ordered By: María Santana on 10-24-2024 Hematocrit (Bld) [Volume fraction] 34.5 % Low 42.0-54.0 [facility] Hemoglobin [Mass/volume] in BloodOrdered By: María Santana on 10-24-2024 Hemoglobin (Bld) [Mass/Vol] 11.3 g/dL Low 14.0-18.0 [facility] Laboratory - Chemistry and C hemistry - challengeOrdered By: María Santana on 10-24-2024 Calcium [Mass/Vol] 8.7 mg/dL 8.5-10.1 [facility] [place] [facility] Chloride [Moles/Vol] 100 mmol/L 98-107 [facility] CO2 [Moles/Vol] 23.7 mmol/L 21.0-32.0 [facility] Creatinine [Mass/Vol] 3.38 mg/dL High 0.70-1.[address] [facility] GFR/1.73 sq M.predicted MDRD (S/P/Bld) [Vol rate/Area] 23 mL/min/{1.73_m2} Low >=60 mL/min/1.7 3m 2 [facility] Glucose [Mass/Vol] 106 mg/dL 74-106 [facility] [place] [facility] Potassium [Moles/Vol] 3.4 mmol/L Low 3.5-5.[address] [facility] Sodium [Moles/Vol] 135 mmol/L Low 136-145 [facility] Urea nitrogen [Mass/Vol] 45.0 mg/dL High 7.0-18.0 [facility] Urea nitrogen/Creatinine [Mass ratio] 13.3 mg/mg [facility] Laboratory - Hematology and Cell countsOrdered By: María Santana on 10-24-2024 Immature granulocytes/100 WBC (Bld) 0.6 % High 0.0-0.5 [facility] Leukocytes [#/volume] correc miguel for nucleated erythrocytes in Blood by Automated counOrdered By: María Santana on 10-24-2024 WBC corrected for nucl RBC Auto (Bld) [#/Vol] 16.7 10 3/uL High 4.0-11.0 [facility] Lymphocytes Auto (Bld) [#/Vo l]Ordered By: María Santana on 10-24-2024 Lymphocytes (Bld) [#/Vol] 1.6 10 3/uL 1.2-3.8 [facility] Lymphocytes/100 WBC Auto (Bl d)Ordered By: María Santana on 10-24-2024 Lymphocytes/100 WBC (Bld) 9.5 % Low 20.5-60.0 [facility] MCH Auto (RBC) [Entitic mass ]Ordered By: María Santana on 10-24-2024 MCH (RBC) [Entitic mass] 28.6 pg 25.9-34.0 [facility] MCHC Auto (RBC) [Mass/Vol]Or dered By: María Santana on 10-24-2024 MCHC (RBC) [Mass/Vol] 32.8 g/dL 29.9-35.[address] [facility] MCV Auto (RBC) [Entitic vol] Ordered By: María Santana on 10-24-2024 MCV (RBC) [Entitic vol] 87.3 fL 80.0-94.0 [facility] Monocytes Auto (Bld) [#/Vol] Ordered By: María Santana on 10-24-2024 Monocytes (Bld) [#/Vol] 0.8 10 3/uL 0.3-0.8 [facility] Monocytes/100 WBC Auto (Bld) Ordered By: María Santana on 10-24-2024 Monocytes/100 WBC (Bld) 4.9 % 1.7-12.0 [facility] Neutrophils Auto (Bld) [#/Vo l]Ordered By: María Santana on 10-24-2024 Neutrophils (Bld) [#/Vol] 14.1 10 3/uL High 1.4-6.5 [facility] Neutrophils/100 WBC Auto (Bl d)Ordered By: María Santana on 10-24-2024 Neutrophils/100 WBC (Bld) 84.2 % High 43.0-75.0 [facility] No Panel InformationOrdered By: María Santana on 10-24-2024 Eosinophils # (Auto) 0.1 10 3/uL 0.0-0.[address] [facility] Immature Granulocyte # (Auto) 0.10 10 3/uL High 0.00-0.03 [facility] Platelet mean volume Auto (B ld) [Entitic vol]Ordered By: María Santana on 10-24-2024 Platelet mean volume (Bld) [Entitic vol] 10.8 fL 9.5-13.5 [facility] Platelets Auto (Bld) [#/Vol] Ordered By: María Santana on 10-24-2024 Platelets (Bld) [#/Vol] 257 10 3/uL 150-450 [facility] RBC Auto (Bld) [#/Vol]Ordere d By: María Santana on 10-24-2024 RBC (Bld) [#/Vol] 3.95 10 6/uL Low 4.70-6.10 [facility] Serum or plasma anion gap de terminationOrdered By: María Santana on 10-24-2024 Anion gap [Moles/Vol] 14.7 mmol/L [facility] Activated partial thrombopla stin time (aPTT) in platelet poor plasma by coagulation aOrdered By: Randi Garcia on 10-23-2024 aPTT Coag (PPP) [Time] 35.6 s 22.3-36.2 [facility] Basophils Auto (Bld) [#/Vol] Ordered By: Randi Marker on 10-23-2024 Basophils (Bld) [#/Vol] 0.1 10 3/uL 0.0-0.1 [facility] Basophils/100 WBC Auto (Bld) Ordered By: Randi Marker on 10-23-2024 Basophils/100 WBC (Bld) 0.2 % 0.2-2.0 [facility] Eosinophils/100 WBC Auto (Bl d)Ordered By: Randi Marker on 10-23-2024 Eosinophils/100 WBC (Bld) 0.8 % Low 0.9-7.0 [facility] Erythrocyte distribution wid th Auto (RBC) [Ratio]Ordered By: Randi Marker on 10-23-2024 Erythrocyte distribution width (RBC) [Ratio] 13.6 % 11.0-15.0 [facility] Fibrin D-dimer [Presence] in Platelet poor plasma by Latex agglutinationOrdered By: Randi Marker on 10-23-2024 Fibrin D-dimer LA Ql (PPP) 1.39 mg/L FEU Critically high <=0.59 [facility] Comment on above: RESULTS CALLED TO WALTER Martinez (Baker), RN @BY Jad Keane MLT at [address]119Increases in D-Dimer concentration observed withthromboembolic events can be variable due to localization,size, and age of the thrombus. Therefore, a thromboembolicevent cannot be diagnosed with certainty on the basis of thereference range. D-Dimers may also be elevated for a varietyof disorders including advanced age, , coronarydisease, cancer, liver disease, infection, inflammation,hematoma, DIC, trauma, post-surgery, diabetes, thrombolyticor anticoagulant therapy, stress, and generalizedhospitalization. Globulin Calc (S) [Mass/Vol] Ordered By: Randi Marker on 10-23-2024 Globulin (S) [Mass/Vol] 5.4 g/dL [facility] Glomerular filtration rate ( GFR) estimation in non- AmericanOrdered By: Randi Marker on 10-23-2024 GFR/1.73 sq M.predicted among non-blacks MDRD (S/P/Bld) [Vol rate/Area] 17 mL/min/{1.73_m2} Low >=60 mL/min/1.7 3m 2 [facility] Hematocrit Auto (Bld) [Volum e fraction]Ordered By: Randi Marker on 10-23-2024 Hematocrit (Bld) [Volume fraction] 35.5 % Low 42.0-54.0 [facility] Hemoglobin [Mass/volume] in BloodOrdered By: Randi Marker on 10-23-2024 Hemoglobin (Bld) [Mass/Vol] 12.0 g/dL Low 14.0-18.0 [facility] INR in Platelet poor plasma by Coagulation assayOrdered By: Randi Marker on 10-23-2024 INR Coag (PPP) [Relative time] 1.07 {INR} [facility] Comment on above: DESIRED INR:2.0-3.0 CONDITIONS NOT LISTED BELOW2.5-3.5 FOR PROSTHETIC HEART VALVE REPLACEMENT2.5-3.5 [facility] Laboratory - Chemistry and C hemistry - challengeOrdered By: María Santana on 10-23-2024 Bilirubin Ql (U) Negative NEGATIVE [facility] Glucose (U) [Mass/Vol] Negative NEGATIVE [facility] Ketones Ql (U) Negative NEGATIVE [facility] pH (U) 5.5 [pH] 5.0-9.0 [facility] Specific gravity (U) [Rel density] 1.025 1.005-1.02 5 [facility] Urobilinogen Qn (U) 1.0 {Abiola'U}/dL 0.2-1.0 [facility] Laboratory - Chemistry and C hemistry - challengeOrdered By: Randi Marker on 10-23-2024 Albumin [Mass/Vol] 2.4 g/dL Low 3.4-5.0 [facility] ALP [Catalytic activity/Vol] 89 U/L 46-116 [facility] ALT [Catalytic activity/Vol] 27 U/L 16-63 [facility] AST [Catalytic activity/Vol] 24 U/L 15-37 [facility] Bilirubin [Mass/Vol] 0.4 mg/dL 0.2-1.0 [facility] Calcium [Mass/Vol] 8.5 mg/dL 8.5-10.1 [facility] Chloride [Moles/Vol] 97 mmol/L Low 98-107 [facility] CO2 [Moles/Vol] 25.1 mmol/L 21.0-32.0 [facility] Creatinine [Mass/Vol] 3.79 mg/dL High 0.70-1.[address] [facility] GFR/1.73 sq M.predicted MDRD (S/P/Bld) [Vol rate/Area] 21 mL/min/{1.73_m2} Low >=60 mL/min/1.7 3m 2 [facility] Glucose [Mass/Vol] 119 mg/dL High 74-106 [facility] Lactate [Moles/Vol] 1.1 mmol/L 0.4-2.0 [facility] Potassium [Moles/Vol] 3.2 mmol/L Low 3.5-5.[address] [facility] Protein [Mass/Vol] 7.8 g/dL 6.4-8.2 [facility] Sodium [Moles/Vol] 132 mmol/L Low 136-145 [facility] Urea nitrogen [Mass/Vol] 46.0 mg/dL High 7.0-18.0 [facility] Urea nitrogen/Creatinine [Mass ratio] 12.1 mg/mg [facility] Laboratory - Hematology and Cell countsOrdered By: Randi Marker on 10-23-2024 Immature granulocytes/100 WBC (Bld) 0.5 % 0.0-0.5 [facility] Laboratory - Specimen inform ationOrdered By: María Santana on 10-23-2024 Appearance (U) SL CLOUDY CLEAR [facility] Color (U) LT. YELLOW YELLOW [facility] Laboratory - UrinalysisOrder ed By: María Santana on 10-23-2024 Amorphous sediment LM Ql (Urine sed) FEW [facility] Leukocyte esterase Test strip Ql (U) Negative NEGATIVE [facility] Mucus Ql (Urine sed) NONE SEEN NONE SEEN [facility] Nitrite Ql (U) Negative NEGATIVE [facility] Protein Ql (U) 100 mg/dL Abnormal NEG/TRACE [facility] Leukocytes [#/volume] correc miguel for nucleated erythrocytes in Blood by Automated counOrdered By: Randi Marker on 10-23-2024 WBC corrected for nucl RBC Auto (Bld) [#/Vol] 21.5 10 3/uL High 4.0-11.0 [facility] Lymphocytes Auto (Bld) [#/Vo l]Ordered By: Randi Marker on 10-23-2024 Lymphocytes (Bld) [#/Vol] 1.6 10 3/uL 1.2-3.8 [facility] Lymphocytes/100 WBC Auto (Bl d)Ordered By: Randi Marker on 10-23-2024 Lymphocytes/100 WBC (Bld) 7.6 % Low 20.5-60.0 [facility] MCH Auto (RBC) [Entitic mass ]Ordered By: Randi Marker on 10-23-2024 MCH (RBC) [Entitic mass] 29.3 pg 25.9-34.0 [facility] MCHC Auto (RBC) [Mass/Vol]Or dered By: Randi Marker on 10-23-2024 MCHC (RBC) [Mass/Vol] 33.8 g/dL 29.9-35.[address] [facility] MCV Auto (RBC) [Entitic vol] Ordered By: Randi Marker on 10-23-2024 MCV (RBC) [Entitic vol] 86.6 fL 80.0-94.0 [facility] Monocytes Auto (Bld) [#/Vol] Ordered By: Randi Marker on 10-23-2024 Monocytes (Bld) [#/Vol] 0.7 10 3/uL 0.3-0.8 [facility] Monocytes/100 WBC Auto (Bld) Ordered By: Randi Marker on 10-23-2024 Monocytes/100 WBC (Bld) 3.3 % 1.7-12.0 [facility] Neutrophils Auto (Bld) [#/Vo l]Ordered By: Randi Marker on 10-23-2024 Neutrophils (Bld) [#/Vol] 18.9 10 3/uL High 1.4-6.5 [facility] Neutrophils/100 WBC Auto (Bl d)Ordered By: Randi Marker on 10-23-2024 Neutrophils/100 WBC (Bld) 87.6 % High 43.0-75.0 [facility] No Panel InformationOrdered By: María Santana on 10-23-2024 Urine Bacteria TRACE #/HPF Abnormal NONE SEEN [facility] Urine Culture Reflexed YES-[facility] Urine Occult Blood LARGE Abnormal NEGATIVE [facility] Urine Other Casts NONE SEEN #/LPF NONE SEEN [facility] Urine Other Crystals Seen #/HPF Abnormal None Seen [facility] Urine RBC 5-10 #/HPF Abnormal 0-2 [facility] Urine Squamous Epithelial Cells FEW #/LPF Abnormal NONE/RARE [facility] Urine WBC 2-5 #/HPF Abnormal NONE SEEN [facility] No Panel InformationOrdered By: Randi Marker on 10-23-2024 Eosinophils # (Auto) 0.2 10 3/uL 0.0-0.[address] [facility] Immature Granulocyte # (Auto) 0.10 10 3/uL High 0.00-0.03 [facility] Troponin I High Sensitivity 44.8 pg/mL 4.0-76.1 [facility] Comment on above: CUT-OFF POINTS HAVE [...] IN CONJUNCTIONWITH OTHER DIAGNOSTIC AND CLINICAL INFORMATION. Platelet mean volume Auto (B ld) [Entitic vol]Ordered By: Randi Marker on 10-23-2024 Platelet mean volume (Bld) [Entitic vol] 10.3 fL 9.5-13.5 [facility] Platelets Auto (Bld) [#/Vol] Ordered By: Randi Marker on 10-23-2024 Platelets (Bld) [#/Vol] 257 10 3/uL 150-450 [facility] Prothrombin time (PT)Ordered By: Randi Marker on 10-23-2024 PT Coag (PPP) [Time] 11.3 s 9.0-11.6 [facility] RBC Auto (Bld) [#/Vol]Ordere d By: Randi Marker on 10-23-2024 RBC (Bld) [#/Vol] 4.10 10 6/uL Low 4.70-6.10 [facility] Serum or plasma albumin/glob ulin mass ratioOrdered By: Randi Marker on 10-23-2024 Albumin/Globulin [Mass ratio] 0.4 {ratio} [facility] Serum or plasma anion gap de terminationOrdered By: Randi Marker on 10-23-2024 Anion gap [Moles/Vol] 13.1 mmol/L [facility] Urine Cultureon 10-23-2024 Bacteria identified Cx Nom (U) No Growth 2 Days PERFORMED BY: [place] [address] PATHOLOGIST SPECIAL INVESTIGATOR SHLOMO FIGUEROA M.D. Normal [facility] Comment on above: Performed By: #### C UU #### [address] US renal doppleron 5 US renal doppler [facility] [place] [address] [place] [address] Ultrasound Report Signed Patient: uSresh Vallejo MR#: [id number] 0 : 1975 Acct:[id number] Age/Sex: 49 / M ADM Date: 08/10/24 Loc: Room: Type: [facility] Attending Dr: Daniel Gloria MD Ordering Provider: Daniel Gloria MD Date of Service: 08/10/24 US/US renal doppler: R/O Renal artery stenosis Copies to: Daniel Gloria MD Renal artery duplex examination performed using B-mode, color flow and spectral Doppler assessment (CPT: 81591) INDICATION: FINDINGS: Aorta: PSV 54.2 cm/s Right [...] Hastings MD,FACS,FSVS 08/11/2024 12:33 PM Dictation Location: [place] [address] Tech: Elis Adamsanastasiia Transcribed By: PWS 08/11/24 1233 Dictated By: Edvin Hastings MD 08/11/24 1232 Signed By: 08/11/24 1233 Normal [facility] echo transthoracicon [facility] echo transthoracic [place] [address] Echocardiogram Signed Patient: Suresh Vallejo MR#: [id number] 0 : 1975 Acct:[id number] Age/Sex: 49 / M ADM Date: 08/10/24 Loc: Room: Type: [facility] Attending Dr: Daniel Gloria MD Ordering Provider: Daniel Gloria MD Date of Service: 08/10/2411/27/847 [facility] echo transthoracic: I10 - Essential (primary) hypertension Copies to: MD Ernesto English MD, [facility] Weight: 380 lb Performed By: ALICIA Amador [...] 3.6 cm2 MARGAUX(V,D): 3.5 cm2 Transcribed By: GENET Performed At: 08/10/24 0938 Signed By: Ernesto Ch MD, [facility] 08/10/24 1041 Normal [facility] A1C with Estimated Average G luon 07-13-2024 Glucose [Mass/Vol] 128 mg/dL Normal [facility] Comment on above: Result Comment: PERF ORMED BY: [place] [address] PATHOLOGIST SPECIAL INVESTIGATOR SEBASTIAN SIMMS M.D. Performed By: #### R ENACT, UMETRA, ALD #### [facility] , #### A1C WTH eA, BMP #### [address] Aldosteroneon 07-13-2024 Aldosterone 8.6 ng/dL Normal 0.0-30.0 [facility] Comment on above: Result Comment: This test was developed and its performance characteristics determined by [employer]. It has not been cleared or approved by the Food and Drug Administration. Performed at: [address] [id number] [employer]: John Mandel MD, Phone: [phone] PERFORMED BY: [place] [address] PATHOLOGIST SPECIAL INVESTIGATOR SEBASTIAN SIMMS M.D. Performed By: #### R ENACT, UMETRA, ALD #### [facility] , #### A1C WTH eA, BMP #### [facility] [address] [place], [place] [id number] [facility] Basic Metabolic Panelon 07-02 Estimated GFR 29.915 mL/Min Normal [facility] Comment on above: Performed By: #### R ENACT, UMETRA, ALD #### [facility] , #### A1C WTH eA, BMP #### [facility] [address] [place] [address] Blood estimated average gluc ose determination by estimation from glycated hemoglobinOrdered By: Daniel Gloria on 07-13-2024 Average glucose Estimated from glycated hemoglobin (Bld) [Mass/Vol] Glucose mean value [Mass/volume] in Blood Estimated from glycated hemoglobin [facility] Average glucose Estimated from glycated hemoglobin (Bld) [Mass/Vol] 128 mg/dL [facility] Calcium [Mass/volume] in Ser um or PlasmaOrdered By: Daniel Gloria on 07-13-2024 Calcium [Mass/Vol] Calcium [Mass/volume ] in Serum or Plasma 8.6-10.3 [facility] Calcium [Mass/Vol] 8.8 mg/dL Normal 8.6-10.3 [facility] [place] [facility] Comment on above: Result Comment: PERF ORMED BY: [place] [address] PATHOLOGIST SPECIAL INVESTIGATOR SEBASTIAN SIMMS M.D. Performed By: #### R KASHTSHANA, ALD #### [facility] , #### A1C WTH eA, BMP #### [facility] [address] [place] [address] [place] Carbon dioxide, total [Moles /volume] in Serum or PlasmaOrdered By: Daniel Gloria on 07-13-2024 CO2 [Moles/Vol] Carbon dioxide, tota l [Moles/volume] in Serum or Plasma 21.0-31.0 [facility] CO2 [Moles/Vol] 27.0 mmol/L Normal 21.0-31.0 [facility] Comment on above: Performed By: #### R ENACT, UMETRA, ALD #### [facility] , #### A1C WTH eA, BMP #### [facility] [address] [place] [address] [place] Chloride [Moles/volume] in S brenton or PlasmaOrdered By: Daniel Gloria on 07-13-2024 Chloride [Moles/Vol] Chloride [Moles/vol ume] in Serum or Plasma 98-107 [facility] Chloride [Moles/Vol] 103 mmol/L Normal 98-107 [facility] Comment on above: Performed By: #### R ENACT UMETRA, ALD #### [facility] , #### A1C WTH eA, BMP #### [facility] [address] Creatinine [Mass/volume] in Serum or PlasmaOrdered By: Daniel Gloria on 07-13-2024 Creatinine [Mass/Vol] Creatinine [Mass/v olume] in Serum or Plasma High 0.70-1.30 [facility] Creatinine [Mass/Vol] 2.53 mg/dL High 0.70-1.[address] [facility] Comment on above: Performed By: #### R KATHY DINEROETRA, ALD #### [facility] , #### A1C WTH eA, BMP #### [facility] [address] Glucose [Mass/volume] in Ser um or PlasmaOrdered By: Daniel Gloria on 07-13-2024 Glucose [Mass/Vol] Glucose [Mass/volume ] in Serum or Plasma High 70-100 [facility] Comment on above: ADA recommended refe rence rangeRandom Glucose Reference Range is dependent on time and content of last meal. Glucose of more than 200 mg/dL in a nonstressed, ambulatory subject supports the diagnosis of Diabetes Mellitus. Glucose [Mass/Vol] 119 mg/dL High 70-100 [facility] Comment on above: ADA recommended refe rence rangeRandom Glucose Reference Range is dependent on time and content of last meal. Glucose of more than 200 mg/dL in a nonstressed, ambulatory subject supports the diagnosis of Diabetes Mellitus. Result Comment: [place] om Glucose Reference Range is dependent on time and content of last meal. Glucose of more than 200 mg/dL in a nonstressed, ambulatory subject supports the diagnosis of Diabetes Mellitus. ADA recommended reference range Performed By: #### R ENACT, UMETRA, ALD #### [facility] , #### A1C WTH eA, BMP #### [facility] [address] [place] [address] [place] Hemoglobin A1c/Hemoglobin.to frandy in BloodOrdered By: Daniel Gloria on 07-13-2024 HbA1c (Bld) [Mass fraction] Hemoglobin A1c percentage High 4.3-5.6 [facility] Comment on above: Increased risk for d iabetes: 5.7 - 6.4diabetes: >6.4glycemic control for adults with diabetes: <7.0 HbA1c (Bld) [Mass fraction] 6.1 % High 4.3-5.6 [facility] Comment on above: Increased risk for d iabetes: 5.7 - 6.4diabetes: >6.4glycemic control for adults with diabetes: <7.0 Result Comment: Incr eased risk for diabetes: 5.7 - 6.4 diabetes: >6.4 glycemic control for adults with diabetes: <7.0 Performed By: #### R SHANA DINERO, ALD #### [facility] , #### A1C WTH eA, BMP #### [facility] [address] [place] [id number] [place] Metanephrine Urine Randomon 07-13-2024 Creatinine, Random Ur 73.3 mg/dL Normal Not Estab. [facility] Comment on above: Performed By: #### R KASHTKATHYETRA, ALD #### [facility] , #### A1C WTH eA, BMP #### [facility] [address] [place] [address] [place] Metanephrine Random Urine 49 Normal Undefined [facility] Comment on above: Result Comment: This test was developed and its performance characteristics determined by [facility]. It has not been cleared or approved by the Food and Drug Administration. Performed By: #### R ENACT UMETRA, ALD #### [facility] , #### A1C WTH eA, BMP #### [facility] [address] Metanephrine/Creatinin e Ratio 0.4 Normal 0.0-1.0 [facility] Comment on above: Result Comment: Resu lt Units: ug/mg Creat Performed at: [address] [id number] Repairer Recreational Vehicle: John Mandel MD, Phone: [phone] Performed By: #### R ENACT, UMETRA, ALD #### [facility] , #### A1C WTH eA, BMP #### [facility] [address] Normetanephrine Random Urine 199 Normal Undefined [facility] Comment on above: Result Comment: This test was developed and its performance characteristics determined by [facility]. It has not been cleared or approved by the Food and Drug Administration. PERFORMED BY: [place] [address] PATHOLOGIST SPECIAL INVESTIGATOR SEBASTIAN SIMMS M.D. Performed By: #### R ENACT, UMETRA, ALD #### [facility] , #### A1C WTH eA, BMP #### [facility] [address] Metanephrines [Mass/volume] in 24 hour UrineOrdered By: Daniel Gloria on 07-13-2024 Metanephrines (24H U) [Mass/Vol] Metanephrines [Mass/volume] in 24 hour Urine Undefined [facility] Comment on above: This test was develo ped and its performance characteristicsdetermined by [facility]. It has not been cleared orapproved by the Food and Drug Administration. Metanephrines (24H U) [Mass/Vol] 49 ug/L Undefined [facility] Comment on above: This test was develo ped and its performance characteristicsdetermined by [facility]. It has not been cleared orapproved by the Food and Drug Administration. Metanephrines/Creatinine [Ma ss Ratio] in UrineOrdered By: Daniel Gloria on 07-13-2024 Metanephrines/Creatini ne (U) [Mass ratio] Metanephrines/Creatinine [Mass Ratio] in Urine 0.0-1.0 [facility] Comment on above: Result Units: ug/mg CreatPerformed at: BN - [facility] [address] [id number] Director: John Mandel MD, Phone: [phone] Metanephrines/Creatini ne (U) [Mass ratio] 0.4 0.0-1.0 [facility] Comment on above: Result Units: ug/mg CreatPerformed at: - [facility] [address] [id number] Director: John Mandel MD, Phone: [phone] No Panel InformationOrdered By: Daniel Gloria on 07-13-2024 Estimated GFR (CKD-EPI) 29.915 mL/Min [facility] Creatinine Clearance (Chem N/A [facility] Normetanephrine [Mass/volume ] in 24 hour UrineOrdered By: Daniel Gloria on 07-13-2024 Normetanephrine (24H U) [Mass/Vol] Normetanephrine [Mass/volume] in 24 hour Urine Undefined [facility] Comment on above: This test was develo ped and its performance characteristicsdetermined by [facility]. It has not been cleared orapproved by the Food and Drug Administration. Normetanephrine (24H U) [Mass/Vol] 199 ug/L Undefined [facility] Comment on above: This test was develo ped and its performance characteristicsdetermined by [facility]. It has not been cleared orapproved by the Food and Drug Administration. Potassium [Moles/volume] in Serum or PlasmaOrdered By: Daniel Gloria on 07-13-2024 Potassium [Moles/Vol] Potassium [Moles/v olume] in Serum or Plasma 3.5-5.1 [facility] Potassium [Moles/Vol] 3.8 mmol/L Normal 3.5-5.[address] [facility] Comment on above: Performed By: #### R ENACT, UMETRA, ALD #### [facility] , #### A1C WT eA, BMP #### [address] Renin Activityon 07-13-2024 Renin Activity 0.247 Normal 0.167-5.38 0 [facility] Comment on above: Result Comment: This test was developed and its performance characteristics determined by [facility]. It has not been cleared or approved by the Food and Drug Administration. Performed at: [address] [id number] Repaire[employer] Recreational Vehicle: John Mandel MD, Phone: [phone] PERFORMED BY: [facility] [address] [place] [address] PATHOLOGIST SPECIAL INVESTIGATOR SEBASTIAN SIMMS M.D. Performed By: #### R ENACT, UMETRA, ALD #### [facility] , #### A1C WTH eA, BMP #### [facility] [address] Renin activityOrdered By: Trino Gloria on 07-13-2024 Renin (P) [Catalytic activity/Vol] Renin activity 0.167-5.38 0 [facility] Comment on above: This test was develo ped and its performance characteristicsdetermined by [facility]. It has not been cleared orapproved by the Food and Drug Administration.Performed at: [address] [id number] Director: John Mandel MD, Phone: [phone] Renin (P) [Catalytic activity/Vol] 0.247 ng/mL/hr 0.167-5.38 0 [facility] Comment on above: This test was develo ped and its performance characteristicsdetermined by [facility]. It has not been cleared orapproved by the Food and Drug Administration.Performed at: [address] [id number] Director: John Mandel MD, Phone: [phone] Serum or plasma aldosterone measurement (mass/volume)Ordered By: Daniel Gloria on 07-13-2024 Aldosterone [Mass/Vol] Serum or plasma a ldosterone measurement (mass/volume) 0.0-30.0 [facility] Comment on above: This test was develo ped and its performance characteristicsdetermined by [facility]. It has not been cleared orapproved by the Food and Drug Administration.Performed at: [facility] - [facility] [id number] Director: John Mandel MD, Phone: [phone] Aldosterone [Mass/Vol] 8.6 ng/dL 0.0-30.0 [facility] Comment on above: This test was develo ped and its performance characteristicsdetermined by [facility]. It has not been cleared orapproved by the Food and Drug Administration.Performed at: - [address] [id number] Director: John Mandel MD, Phone: [phone] Serum or plasma anion gap de terminationOrdered By: Daniel Gloria on 07-13-2024 Anion gap [Moles/Vol] Serum or plasma an ion gap determination 6.0-15.0 [facility] Anion gap [Moles/Vol] 11.8 mmol/L Normal 6.0-15.0 [facility] Comment on above: Performed By: #### R SHANA DINERO ALD #### [facility] , #### A1C WTH eA, BMP #### [facility] [address] [place] [address] [place] Sodium [Moles/volume] in Ser um or PlasmaOrdered By: Daniel Gloria on 07-13-2024 Sodium [Moles/Vol] Sodium [Moles/volume ] in Serum or Plasma 136-145 [facility] Sodium [Moles/Vol] 138 mmol/L Normal 136-145 [facility] Comment on above: Performed By: #### R SHANA DINERO ALD #### [facility] , #### A1C WT eA, BMP #### [facility] [address] [place] [id number] [place] Urea nitrogen [Mass/volume] in Serum or PlasmaOrdered By: Daniel Gloria on 07-13-2024 Urea nitrogen [Mass/Vol] Urea nitrogen [Mass/volume] in Serum or Plasma High 7-25 [facility] Urea nitrogen [Mass/Vol] 40 mg/dL High 7-25 [facility] Comment on above: Performed By: #### R ENACT, UMETRA, ALD #### [facility] , #### A1C WTH eA, BMP #### [address] Urine creatinine measurement (mass/volume)Ordered By: Daniel Gloria on 07-13-2024 Creatinine (U) [Mass/Vol] Creatinine [Mass/volume] in Urine Not Estab. [facility] Creatinine (U) [Mass/Vol] 73.3 mg/dL Not Estab. [facility]PG ECG *CARDIOLOGY ONLY*on 07-08-2024 FPG ECG *CARDIOLOGY ONLY* [facility] [place] [address] [place] [address] Electrocardiograph Report Signed Patient: Suresh Vallejo MR#: [id number] 0 : 1975 Acct:[id number] Age/Sex: 49 / M ADM Date: 07/08/24 Loc: [facility] Room: Type: [facility] Attending Dr: Daniel Gloria MD Ordering Provider: [...] for LVH, may be normal variant ( [place] product ) Borderline ECG No previous ECGs available Confirmed by Daniel Gloria ([id number]) on 07/08/2024 4:29:16 PM Referred By: Electronically Signed By: Daniel Gloria Transcribed By: MUS Signed By Daniel Gloria MD 07/08/24 5918 Normal [facility] Basophils Auto (Bld) [#/Vol] on 02-09-2024 Basophils (Bld) [#/Vol] Automated basophil count 0.0-0.1 [facility] Basophils/100 WBC Auto (Bld) on 02-09-2024 Basophils/100 WBC (Bld) Automated basophil % 0.2-2.0 [facility] Eosinophils/100 WBC Auto (Bl d)on 02-09-2024 Eosinophils/100 WBC (Bld) Automated eosinophil % 0.9-7.0 [facility] Erythrocyte distribution wid th Auto (RBC) [Ratio]on 02-09-2024 Erythrocyte distribution width (RBC) [Ratio] Erythrocyte distribution width [Ratio] by Automated count 11.0-15.0 [facility] Estimated glomerular filtrat ion rate (GFR) non- Americanon 02-09-2024 GFR/1.73 sq M.predicted among non-blacks MDRD (S/P/Bld) [Vol rate/Area] Estimated glomerular filtration rate (GFR) non- Low >=60 mL/min/1.7 3m 2 [facility] Hematocrit Auto (Bld) [Volum e fraction]on 02-09-2024 Hematocrit (Bld) [Volume fraction] Hematocrit [Volume Fraction] of Blood by Automated count Low 42.0-54.0 [facility] Hemoglobin [Mass/volume] in Bloodon 02-09-2024 Hemoglobin (Bld) [Mass/Vol] Hemoglobin [Mass/volume] in Blood Low 14.0-18.0 [facility] Laboratory - Chemistry and C hemistry - challengeon 02-09-2024 Calcium [Mass/Vol] 8.6 mg/dL 8.5-10.1 [facility] Chloride [Moles/Vol] 109 mmol/L High 98-107 [facility] CO2 [Moles/Vol] 24.4 mmol/L 21.0-32.0 [facility] Creatinine [Mass/Vol] 2.50 mg/dL High 0.70-1.[address] [facility] GFR/1.73 sq M.predicted MDRD (S/P/Bld) [Vol rate/Area] 33 mL/min/{1.73_m2} Low >=60 mL/min/1.7 3m 2 [facility] Glucose [Mass/Vol] 81 mg/dL 74-106 [facility] Natriuretic peptide B (Bld) [Mass/Vol] 1600.0 pg/mL Critically high <=900.0 [facility] Comment on above: RESULTS CALLED TO LAZ VELASQUEZ RN @BY [facility] [id number] Potassium [Moles/Vol] 4.3 mmol/L 3.5-5.[address] [facility] Sodium [Moles/Vol] 144 mmol/L 136-145 [facility] Urea nitrogen [Mass/Vol] 38.0 mg/dL High 7.0-18.0 [facility] Urea nitrogen/Creatinine [Mass ratio] 15.2 mg/mg [facility] Laboratory - Hematology and Cell countson 02-09-2024 Immature granulocytes/100 WBC (Bld) 0.1 % 0.0-0.5 [facility] Leukocytes [#/volume] correc miguel for nucleated erythrocytes in Blood by Automated counon 02-09-2024 WBC corrected for nucl RBC Auto (Bld) [#/Vol] Leukocytes [#/volume] corrected for nucleated erythrocytes in Blood by Automated coun 4.0-11.0 [facility] Lymphocytes Auto (Bld) [#/Vo l]on 02-09-2024 Lymphocytes (Bld) [#/Vol] Lymphocytes [#/volume] in Blood by Automated count 1.2-3.8 [facility] Lymphocytes/100 WBC Auto (Bl d)on 02-09-2024 Lymphocytes/100 WBC (Bld) Lymphocytes/100 leukocytes in Blood by Automated count 20.5-60.0 [facility] MCH Auto (RBC) [Entitic mass ]on 02-09-2024 MCH (RBC) [Entitic mass] MCH [Entitic mass] by Automated count 25.9-34.0 [facility] MCHC Auto (RBC) [Mass/Vol]on 02-09-2024 MCHC (RBC) [Mass/Vol] MCHC [Mass/volume] by Automated count 29.9-35.2 [facility] MCV Auto (RBC) [Entitic vol] on 02-09-2024 MCV (RBC) [Entitic vol] MCV [Entitic volume] by Automated count 80.0-94.0 [facility] Monocytes Auto (Bld) [#/Vol] on 02-09-2024 Monocytes (Bld) [#/Vol] Automated blood monocyte count 0.3-0.8 [facility] Monocytes/100 WBC Auto (Bld) on 02-09-2024 Monocytes/100 WBC (Bld) Automated monocyte % 1.7-12.0 [facility] Neutrophils Auto (Bld) [#/Vo l]on 02-09-2024 Neutrophils (Bld) [#/Vol] Neutrophils [#/volume] in Blood by Automated count 1.4-6.5 [facility] Neutrophils/100 WBC Auto (Bl d)on 02-09-2024 Neutrophils/100 WBC (Bld) Automated neutrophil % 43.0-75.0 [facility] No Panel Informationon 02-08 Eosinophils # (Auto) 0.4 10 3/uL 0.0-0.[address] [facility] Immature Granulocyte # (Auto) 0.01 10 3/uL 0.00-0.03 [facility] Platelet mean volume Auto (B ld) [Entitic vol]on 02-09-2024 Platelet mean volume (Bld) [Entitic vol] Platelet mean volume [Entitic volume] in Blood by Automated count 9.5-13.5 [facility] Platelets Auto (Bld) [#/Vol] on 02-09-2024 Platelets (Bld) [#/Vol] Platelets [#/volume] in Blood by Automated count 150-450 [facility] RBC Auto (Bld) [#/Vol]on RBC (Bld) [#/Vol] Erythrocytes [#/volu me] in Blood by Automated count Low 4.70-6.10 [facility] Serum or plasma anion gap de terminationon 02-09-2024 Anion gap [Moles/Vol] Serum or plasma an ion gap determination [facility] Activated partial thrombopla stin time (aPTT) in platelet poor plasma by coagulation aon 02-08-2024 aPTT Coag (PPP) [Time] Activated partial thromboplastin time (aPTT) in platelet poor plasma by coagulation a 22.3-36.2 [facility] Basophils Auto (Bld) [#/Vol] on 02-08-2024 Basophils (Bld) [#/Vol] Automated basophil count 0.0-0.1 [facility] Basophils/100 WBC Auto (Bld) on 02-08-2024 Basophils/100 WBC (Bld) Automated basophil % 0.2-2.0 [facility] Eosinophils/100 WBC Auto (Bl d)on 02-08-2024 Eosinophils/100 WBC (Bld) Automated eosinophil % 0.9-7.0 [facility] Erythrocyte distribution wid th Auto (RBC) [Ratio]on 02-08-2024 Erythrocyte distribution width (RBC) [Ratio] Erythrocyte distribution width [Ratio] by Automated count 11.0-15.0 [facility] Estimated glomerular filtrat ion rate (GFR) non- Americanon 02-08-2024 GFR/1.73 sq M.predicted among non-blacks MDRD (S/P/Bld) [Vol rate/Area] Estimated glomerular filtration rate (GFR) non- Low >=60 mL/min/1.7 3m 2 [facility] Globulin Calc (S) [Mass/Vol] on 02-08-2024 Globulin (S) [Mass/Vol] Serum globulin measurement by calculation (mass/volume) [facility] Hematocrit Auto (Bld) [Volum e fraction]on 02-08-2024 Hematocrit (Bld) [Volume fraction] Hematocrit [Volume Fraction] of Blood by Automated count Low 42.0-54.0 [facility] Hemoglobin [Mass/volume] in Bloodon 02-08-2024 Hemoglobin (Bld) [Mass/Vol] Hemoglobin [Mass/volume] in Blood Low 14.0-18.0 [facility] INR in Platelet poor plasma by Coagulation assayon 02-08-2024 INR Coag (PPP) [Relative time] INR in Platelet poor plasma by Coagulation assay [facility] Comment on above: DESIRED INR:2.0-3.0 CONDITIONS NOT LISTED BELOW2.5-3.5 FOR PROSTHETIC HEART VALVE REPLACEMENT2.5-3.5 [facility]ROMBOSIS Laboratory - Chemistry and C hemistry - challengeon 02-08-2024 Albumin [Mass/Vol] 2.6 g/dL Low 3.4-5.0 [facility] ALP [Catalytic activity/Vol] 98 U/L 46-116 [facility] ALT [Catalytic activity/Vol] 26 U/L 16-63 [facility] AST [Catalytic activity/Vol] 19 U/L 15-37 [facility] Bilirubin [Mass/Vol] 0.6 mg/dL 0.2-1.0 [facility] Calcium [Mass/Vol] 8.8 mg/dL 8.5-10.1 [facility] Chloride [Moles/Vol] 109 mmol/L High 98-107 [facility] CO2 [Moles/Vol] 23.6 mmol/L 21.0-32.0 [facility] Creatinine [Mass/Vol] 2.55 mg/dL High 0.70-1.[address] [facility] GFR/1.73 sq M.predicted MDRD (S/P/Bld) [Vol rate/Area] 32 mL/min/{1.73_m2} Low >=60 mL/min/1.7 3m 2 [facility] Glucose [Mass/Vol] 82 mg/dL 74-106 [facility] Magnesium [Mass/Vol] 1.9 mg/dL 1.8-2.4 [facility] Natriuretic peptide B (Bld) [Mass/Vol] 4053.0 pg/mL Critically high <=900.0 [facility] Comment on above: RESULTS CALLED TO DONALDO SANTO RN @BY Kim [place] at 0731 Potassium [Moles/Vol] 3.9 mmol/L 3.5-5.[address] [facility] Protein [Mass/Vol] 7.1 g/dL 6.4-8.2 [facility] Sodium [Moles/Vol] 143 mmol/L 136-145 [facility] T4 [Mass/Vol] 6.90 ug/dL 4.50-12.10 [facility] TSH Qn 2.921 m[IU]/L 0.358-3.74 0 [facility] Urea nitrogen [Mass/Vol] 36.0 mg/dL High 7.0-18.0 [facility] Urea nitrogen/Creatinine [Mass ratio] 14.1 mg/mg [facility] Laboratory - Hematology and Cell countson 02-08-2024 Immature granulocytes/100 WBC (Bld) 0.1 % 0.0-0.5 [facility] Leukocytes [#/volume] correc miguel for nucleated erythrocytes in Blood by Automated counon 02-08-2024 WBC corrected for nucl RBC Auto (Bld) [#/Vol] Leukocytes [#/volume] corrected for nucleated erythrocytes in Blood by Automated coun 4.0-11.0 [facility] Lymphocytes Auto (Bld) [#/Vo l]on 02-08-2024 Lymphocytes (Bld) [#/Vol] Lymphocytes [#/volume] in Blood by Automated count 1.2-3.8 [facility] Lymphocytes/100 WBC Auto (Bl d)on 02-08-2024 Lymphocytes/100 WBC (Bld) Lymphocytes/100 leukocytes in Blood by Automated count 20.5-60.0 [facility] MCH Auto (RBC) [Entitic mass ]on 02-08-2024 MCH (RBC) [Entitic mass] MCH [Entitic mass] by Automated count 25.9-34.0 [facility] MCHC Auto (RBC) [Mass/Vol]on 02-08-2024 MCHC (RBC) [Mass/Vol] MCHC [Mass/volume] by Automated count 29.9-35.2 [facility] MCV Auto (RBC) [Entitic vol] on 02-08-2024 MCV (RBC) [Entitic vol] MCV [Entitic volume] by Automated count 80.0-94.0 [facility] Monocytes Auto (Bld) [#/Vol] on 02-08-2024 Monocytes (Bld) [#/Vol] Automated blood monocyte count 0.3-0.8 [facility] Monocytes/100 WBC Auto (Bld) on 02-08-2024 Monocytes/100 WBC (Bld) Automated monocyte % 1.7-12.0 [facility] Neutrophils Auto (Bld) [#/Vo l]on 02-08-2024 Neutrophils (Bld) [#/Vol] Neutrophils [#/volume] in Blood by Automated count 1.4-6.5 [facility] Neutrophils/100 WBC Auto (Bl d)on 02-08-2024 Neutrophils/100 WBC (Bld) Automated neutrophil % 43.0-75.0 [facility] No Panel Informationon 02-07 Eosinophils # (Auto) 0.3 10 3/uL 0.0-0.[address] [facility] Immature Granulocyte # (Auto) 0.01 10 3/uL 0.00-0.03 [facility] Phosphorus Level 4.0 mg/dL 2.6-4.7 [facility] Platelet mean volume Auto (B ld) [Entitic vol]on 02-08-2024 Platelet mean volume (Bld) [Entitic vol] Platelet mean volume [Entitic volume] in Blood by Automated count 9.5-13.5 [facility] Platelets Auto (Bld) [#/Vol] on 02-08-2024 Platelets (Bld) [#/Vol] Platelets [#/volume] in Blood by Automated count 150-450 [facility] Prothrombin time (PT)on PT Coag (PPP) [Time] Prothrombin time (PT) 9.0- 11.6 [facility] RBC Auto (Bld) [#/Vol]on RBC (Bld) [#/Vol] Erythrocytes [#/volu me] in Blood by Automated count Low 4.70-6.10 [facility] Serum or plasma albumin/glob ulin mass ratioon 02-08-2024 Albumin/Globulin [Mass ratio] Serum or plasma albumin/globulin mass ratio [facility] Serum or plasma anion gap de terminationon 02-08-2024 Anion gap [Moles/Vol] Serum or plasma an ion gap determination [facility] Buprenorphine [Presence] in Urineon 02-07-2024 Buprenorphine Ql (U) Buprenorphine [Pres ence] in Urine NEGATIVE [facility] Comment on above: DRUG CLASS TEST [...] challengeon 02-07-2024 Bilirubin Ql (U) Negative NEGATIVE [facility] Glucose (U) [Mass/Vol] Negative NEGATIVE [facility] Ketones Ql (U) Negative NEGATIVE [facility] pH (U) 6.5 [pH] 5.0-9.0 [facility] Specific gravity (U) [Rel density] 1.015 1.005-1.02 5 [facility] Urobilinogen Qn (U) 0.2 {Abiola'U}/dL 0.2-1.0 [facility] Magnesium [Mass/Vol] 2.1 mg/dL 1.8-2.4 [facility] Natriuretic peptide B (Bld) [Mass/Vol] 3918.0 pg/mL Critically high <=900.0 [facility] Comment on above: RESULTS CALLED TO ER RICHIE Whitney @BY Rogelio [place] 193 Laboratory - Drug toxicology on 02-07-2024 Amphetamines Ql (U) Negative NEGATIVE [facility] Benzodiazepines Ql (U) Negative NEGATIVE [facility] Cocaine Ql (U) Negative NEGATIVE [facility] Opiates Ql (U) Negative NEGATIVE [facility] Phencyclidine Ql (U) Negative NEGATIVE [facility] Laboratory - Specimen inform ationon 02-07-2024 Appearance (U) CLEAR CLEAR [facility] Color (U) LT. YELLOW YELLOW [facility] Laboratory - Urinalysison Leukocyte esterase Test strip Ql (U) Negative NEGATIVE [facility] Mucus Ql (Urine sed) NONE SEEN NONE SEEN [facility] Nitrite Ql (U) Negative NEGATIVE [facility] Protein Ql (U) >=300 mg/dL Abnormal NEG/TRACE [facility] Methadone [Presence] in Urin e by Screen methodon 02-07-2024 Methadone Screen Ql (U) Methadone [Presence] in Urine by Screen method NEGATIVE [facility] No Panel Informationon 02-06 Urine Bacteria TRACE #/HPF Abnormal NONE SEEN [facility] Urine Barbiturates Screen Negative NEGATIVE [facility] Urine Marijuana (THC) Screen Negative NEGATIVE [facility] Urine Methamphetamines Screen Negative NEGATIVE [facility] Urine Occult Blood SMALL [facility] Urine Other Casts NONE SEEN #/LPF NONE SEEN [facility] Urine Other Crystals None Seen #/HPF None Seen [facility] Urine RBC 0-2 #/HPF 0-2 [facility] Urine Squamous Epithelial Cells NONE SEEN #/LPF NONE/RARE [facility] Urine WBC 0-2 #/HPF Abnormal NONE SEEN [facility] Troponin I High Sensitivity 68.6 pg/mL 4.0-76.1 [facility] Comment on above: CUT-OFF POINTS HAVE [...] (U) [Mass/Vol] Urine tricyclic antidepressant measurement NEGATIVE [facility] oxyCODONE+oxyMORphone [Prese nce] in Urine by Screen methodon 02-07-2024 oxyCODONE+oxyMORphone Screen Ql (U) oxyCODONE+oxyMORphone [Presence] in Urine by Screen method NEGATIVE [facility] US venous duplex LE BIon US venous duplex LE BI [place] [address] Ultrasound Report Signed Patient: Suresh Vallejo MR#: [id number] 0 : 1975 Acct:[id number] Age/Sex: 49 / M ADM Date: 02/05/24 Loc: UL Room: Type: [facility] Attending Dr: Edvin Hastings MD Ordering [...] veins are compressible. US/US venous duplex LE IMPRESSION: NO EVIDENCE FOR DEEP VEIN THROMBOSIS [...] Edvin Hastings MD02/06/2024 4:14 PM Dictation Location: [place] [address] Tech: Oksana Lucia Transcribed By: LAKSHMI 02/06/24 161 Dictated By: Edvin Hastings MD 02/06/24 1613 Signed By: 02/06/24 1614 Aquilino [facility] [place] Lower Extremity Venous Du [...] Crow MD Transcribed by: MARTINEZ Technologist: AARON Rolle [facility] [place] Lower Extremity Venous Du plex Lefton [...] Crow MD Transcribed by: MARTINEZ Technologist: AARON Rolle [facility] CHEMISTRYOrdered By: SYSTEM SYSTEM on 10-10-2022 25-hydroxyvitamin [...] 10 - 20 [facility] HEMATOLOGYOrdered By: [employer] SYSTEM on 10-10-2022 Basophils/100 WBC (Bld) 1.1 [...] 5.8 E9/L Normal 2.0 - 7.5 E9/L [facility] HEMATOLOGYOrdered By: Mamadou Guevara on 10-10-2022 Erythrocyte distribution width (RBC) [Ratio] 14.3 % High 10.9 - 14.2 % [facility] Hematocrit (Bld) [Volume fraction] 44.9 % Normal 37.7 - 49.0 % [facility] Hemoglobin (Bld) [Mass/Vol] 15.1 g/dL Normal 13.5 - 17.5 gm/dL [facility] MCH (RBC) [Entitic mass] 28.7 pg Normal 27.0 - 34.0 pg [facility] MCHC (RBC) [Mass/Vol] 33.7 g/dL Normal 31.4 - 36.0 gm/dL [facility] MCV (RBC) [Entitic vol] 85.2 fL Normal 80.0 - 100.0 fL [facility] Platelet mean volume (Bld) [Entitic vol] 8.6 fL Normal 6.4 - 10.8 fL [facility] Platelets (Bld) [#/Vol] 316.0 E9/L Normal 150.0 - 500.0 E9/L [facility] RBC (Bld) [#/Vol] 5.3 E12/L Normal 4.3 - 5.9 E12/L [facility] WBC corrected for nucl RBC Auto (Bld) [#/Vol] 8.9 E9/L Normal 4.0 - 11.0 E9/L [facility] CBC AUTO DIFFon 02-07-2021 BASO # 0.1 103/ul Normal 0.0-0.1 [facility] Comment on above: Performed By: #### C BC #### [facility] [address] [place] [address] Dr. Aubrey Tatum Basophils/100 WBC (Bld) 0.8 % Normal 0.2-2.0 [facility] Comment on above: Performed By: #### C BC #### [facility] [address] [place] [address] Dr. Aubrey Tatum EO # 0.1 103/ul Normal 0.0-0.7 [facility] Comment on above: Performed By: #### C BC #### [facility] [address] [place] [address] Dr. Aubrey Tatum Eosinophils/100 WBC (Bld) 1.3 % Normal 0.9-7.0 [facility] Comment on above: Performed By: #### C BC #### [facility] [address] [place] [address] Dr. Aubrey Tatum Erythrocyte distribution width (RBC) [Ratio] 13.6 % Normal 11.0-15.0 [facility] Comment on above: Performed By: #### C BC #### [facility] [address] [place] [address] Dr. Aubrey Tatum Hematocrit (Bld) [Volume fraction] 41.0 % Critically low 42.0-54.0 [facility] Comment on above: Performed By: #### C BC #### [facility] [address] [place] [address] Dr. Aubrey Tatum Hemoglobin (Bld) [Mass/Vol] 13.0 g/dL Critically low 14.0-18.0 [facility] Comment on above: Performed By: #### C BC #### [facility] [address] [place] [address] Dr. Aubrey Tatum IG # 0.02 10e3/ul Normal 0.00-0.03 [facility] Comment on above: Performed By: #### C BC #### [facility] [address] [place] [address] Dr. Aubrey Tatum IG % 0.2 % Normal 0.0-0.5 [facility] Comment on above: Performed By: #### C BC #### [facility] [address] [place] [address] Dr. Aubrey Tatum LYMPH # 2.0 103/ul Normal 1.2-3.8 [facility] Comment on above: Performed By: #### C BC #### [facility] [address] [place] [address] Dr. Aubrey Tatum Lymphocytes/100 WBC (Bld) 21.8 % Normal 20.5-60.0 [facility] Comment on above: Performed By: #### C BC #### [facility] [address] [place] [address] Dr. Aubrey Tatum MANUAL DIFF REQ NO Normal [facility] Comment on above: Performed By: #### C BC #### [facility] [address] [place] [address] Dr. Aubrey Tatum MCH (RBC) [Entitic mass] 28.1 pg Normal 25.9-34.0 [facility] Comment on above: Performed By: #### C BC #### [facility] [address] [place] [address] Dr. Aubrey Tatum MCHC (RBC) [Mass/Vol] 31.7 g/dL Normal 29.9-35.2 [facility] Comment on above: Performed By: #### C BC #### [facility] [address] [place] [address] Dr. Aubrey Tatum MCV (RBC) [Entitic vol] 88.7 fL Normal 80.0-94.0 [facility] Comment on above: Performed By: #### C BC #### [facility] [address] [place] [address] Dr. Aubrey Tatum MONO # 0.5 103/ul Normal 0.3-0.8 [facility] Comment on above: Performed By: #### C BC #### [facility] [address] [place] [address] Dr. Aubrey Tatum Monocytes/100 WBC (Bld) 5.7 % Normal 1.7-12.0 [facility] Comment on above: Performed By: #### C BC #### [facility] [address] [place] [address] Dr. Aubrey Tatum NEUT # 6.4 103/ul Normal 1.4-6.5 [facility] Comment on above: Performed By: #### C BC #### [facility] [address] [place] [address] Dr. Aubrey Tatum Neutrophils/100 WBC (Bld) 70.2 % Normal 43.0-75.0 [facility] Comment on above: Performed By: #### C BC #### [facility] [address] [place] [address] Dr. Aubrey Tatum Platelet mean volume (Bld) [Entitic vol] 9.6 fL Normal 9.5-13.5 [facility] Comment on above: Performed By: #### C BC #### [facility] [address] [place] [address] Dr. Aubrey Tatum PLT 334 103/ul Normal 150-450 [facility] Comment on above: Performed By: #### C BC #### [facility] [address] [place] [address] Dr. Aubrey Tatum RBC 4.62 106/ul Critically low 4.70-6.10 [facility] Comment on above: Performed By: #### C BC #### [facility] [address] [place] [address] Dr. Aubrey Tatum WBC 9.1 103/ul Normal 4.0-11.0 [facility] Comment on above: Performed By: #### C BC #### [facility] [address] [place] [address] Dr. Aubrey Tatum FREE T3on 02-07-2021 FREE T3 2.57 pg/mlL Critically low 2.77-5.27 [facility] Comment on above: Performed By: #### L IPID, CMP, FT3, TSH #### [facility] [address] [place] [address] Dr. Aubrey Tatum FREE T4on 02-07-2021 Free T4 [Mass/Vol] 0.93 ng/dL Normal 0.78-2.19 [facility] Comment on above: Performed By: #### F T4 #### [facility] [address] [place] [address] Dr. Aubrey Tatum LIPID PROFILEon 02-07-2021 CHOL-HDL RATIO NORM SEE BELOW Normal [facility] Comment on above: Result Comment: 3.3 - 4.4 LOW RISK 4.4 - 7.1 AVERAGE RISK 7.1 - 11.0 MODERATE RISK >11.0 HIGH RISK Performed By: #### L IPID, CMP, FT3, TSH #### [facility] [address] [place] [address] Dr. Aubrey Tatum Cholesterol [Mass/Vol] 155 mg/dL Normal <=200 Th [facility] Comment on above: Performed By: #### L IPID, CMP, FT3, TSH #### [facility] [address] [place] [address] Dr. Aubrey Tatum Cholesterol in HDL [Mass/Vol] 51 mg/dL Normal [facility] Comment on above: Performed By: #### L IPID, CMP, FT3, TSH #### [facility] [address] [place] [address] Dr. Aubrey Tatum Cholesterol in LDL [Mass/Vol] 94.2 mg/dL Normal [facility] Comment on above: Performed By: #### L IPID, CMP, FT3, TSH #### [facility] [address] [place] [address] Dr. Aubrey Tatum Cholesterol.total/Chol esterol in HDL [Mass ratio] 3.0 {ratio} Normal [facility] Comment on above: Performed By: #### L IPID, CMP, FT3, TSH #### [facility] [address] [place] [address] [address] Aubrey Tatum HDL NORMAL > or = 60 mg/dl - LO W CARDIOVASCULAR RISK <40 mg/dl - HIGH CARDIOVASCULAR RISK Normal [facility] Comment on above: Performed By: #### L IPID, CMP, FT3, TSH #### [facility] [address] [place] [address] Dr. Aubrey Tatum LDL CALC NORMAL SEE BELOW Normal [facility] Comment on above: Result Comment: <100 mg/dl OPTIMAL 100 - 129 mg/dl NEAR OR ABOVE OPTIMAL 130 - 159 mg/dl BORDERLINE HIGH 160 - 189 mg/dl HIGH >190 mg/dl VERY HIGH Performed By: #### L IPID, CMP, FT3, TSH #### [facility] [address] [place] [address] Dr. Aubrey Tatum Triglyceride [Mass/Vol] 49 mg/dL Normal <=150 [facility] Comment on above: Performed By: #### L IPID, CMP, FT3, TSH #### [facility] [address] [place] [address] [address] Aubrey Tatum VLDL CALC 9.8 mg/dL Normal [facility] Comment on above: Performed By: #### L IPID, CMP, FT3, TSH #### [facility] [address] [place] [address] [address] Aubrey Tatum PROF 14(COMP METB)on 021 Albumin [Mass/Vol] 3.1 g/dL Critically low 3.5-5.0 Th e [facility] Comment on above: Performed By: #### L IPID, CMP, FT3, TSH #### [facility] [address] [place] [address] [address] Aubrey Tatum Albumin/Globulin [Mass ratio] 0.7 {ratio} Normal [facility] Comment on above: Performed By: #### L IPID, CMP, FT3, TSH #### [facility] [address] [place] [address] [address] Aubrey Tatum ALP [Catalytic activity/Vol] 86 U/L Normal 38-126 [facility] Comment on above: Performed By: #### L IPID, CMP, FT3, TSH #### [facility] [address] [place] [address] [address] Aubrey Tatum ALT [Catalytic activity/Vol] 45 U/L Normal 21-72 [facility] Comment on above: Performed By: #### L IPID, CMP, FT3, TSH #### [facility] [address] [place] [address] Dr. Aubrey Tatum Anion gap [Moles/Vol] 11.7 mmol/L Normal [facility] Comment on above: Performed By: #### L IPID, CMP, FT3, TSH #### [facility] [address] [place] [address] [address] Aubrey Tatum AST [Catalytic activity/Vol] 26 U/L Normal 17-59 [facility] Comment on above: Performed By: #### L IPID, CMP, FT3, TSH #### [facility] [address] [place] [address] Dr. Aubrey Tatum Bilirubin [Mass/Vol] 0.4 mg/dL Normal 0.2-1.3 [facility] Comment on above: Performed By: #### L IPID, CMP, FT3, TSH #### [facility] [address] [place] [address] Dr. Aubrey Tatum Calcium [Mass/Vol] 9.0 mg/dL Normal 8.4-10.2 [facility] Comment on above: Performed By: #### L IPID, CMP, FT3, TSH #### [facility] [address] [place] [address] Dr. Aubrey Tatum Chloride [Moles/Vol] 103 mmol/L Normal 98-107 [facility] Comment on above: Performed By: #### L IPID, CMP, FT3, TSH #### [facility] [address] [place] [address] Dr. Aubrey Tatum CO2 [Moles/Vol] 27.9 mmol/L Normal 22.0-30.0 [facility] Comment on above: Performed By: #### L IPID, CMP, FT3, TSH #### [facility] [address] [place] [address] [address] Aubrey Tatum Creatinine [Mass/Vol] 1.31 mg/dL Critically high 0.66-1.25 [facility] Comment on above: Performed By: #### L IPID, CMP, FT3, TSH #### [facility] [address] [place] [address] Dr. Aubrey Tatum EGFR-AF IRISH >60 Normal >=60 [facility] Comment on above: Performed By: #### L IPID, CMP, FT3, TSH #### [facility] [address] [place] [address] Dr. Aubrey Tatum EGFR-NON AF IRISH 58 mL/min/1.73m2 Critically low >=60 [facility] Comment on above: Performed By: #### L IPID, CMP, FT3, TSH #### [facility] [address] [place] [address] Dr. Aubrey Tatum Globulin (S) [Mass/Vol] 4.5 g/dL Normal [facility] Comment on above: Performed By: #### L IPID, CMP, FT3, TSH #### [facility] [address] [place] [address] Dr. Aubrey Tatum Glucose [Mass/Vol] 85 mg/dL Normal 74-106 [facility] Comment on above: Performed By: #### L IPID, CMP, FT3, TSH #### [facility] [address] [place] [address] Dr. Aubrey Tatum Potassium [Moles/Vol] 3.6 mmol/L Normal 3.4-5.0 [facility] Comment on above: Performed By: #### L IPID, CMP, FT3, TSH #### [facility] [address] [place] [address] Dr. Aubrey Tatum Protein [Mass/Vol] 7.6 g/dL Normal 6.1-8.2 [facility] Comment on above: Performed By: #### L IPID, CMP, FT3, TSH #### [facility] [address] [place] [address] Dr. Aubrey Tatum Sodium [Moles/Vol] 139 mmol/L Normal 137-145 [facility] Comment on above: Performed By: #### L IPID, CMP, FT3, TSH #### [facility] [address] [place] [address] Dr. Aubrey Tatum Urea nitrogen [Mass/Vol] 26.0 mg/dL Critically high 9.0-20.0 [facility] Comment on above: Performed By: #### L IPID, CMP, FT3, TSH #### [facility] [address] [place] [address] Dr. Aubrey Tatum Urea nitrogen/Creatinine [Mass ratio] 19.8 mg/mg Normal [facility] Comment on above: Performed By: #### L IPID, CMP, FT3, TSH #### [facility] [address] [place] [address] Dr. Aubrey Tatum TSHon 02-07-2021 TSH 2.234 uIU/mL Normal 0.470-4.68 0 [facility] Comment on above: Performed By: #### L IPID, CMP, FT3, TSH #### [facility] [address] [place] [address] Dr. Aubrey Tatum TSH RANGE SEE BELOW Normal [facility] Comment on above: Result Comment: <0.3 4 UIU/ml HYPERTHYROID 0.34-5.60 UIU/ml EUTHYROID >5.60 UIU/ml HYPOTHYROID Performed By: #### L IPID, CMP, FT3, TSH #### [facility] [address] [place] [address] Dr. Aubrey Tatum Vital Signs Date Time Vital Sign Value Performing Clinician Facility 09-24-2024 15:38-0400 Body temperature 97.5 [degF] Juvencio Rosa DO Work Phone: [facility] 09-24-2024 15:38-0400 Diastolic blood pressure 98 mm[Hg] Juvencio Rosa DO Work Phone: [facility] 09-24-2024 15:38-0400 Heart rate 78 /min Juvencio Rosa DO Work Phone: [facility] 09-24-2024 15:38-0400 SaO2% (BldA) [Mass fraction] 97 % Juvencio Rosa DO Work Phone: [facility] 09-24-2024 15:38-0400 Systolic blood pressure 190 mm[Hg] Juvencio Rosa DO Work Phone: [facility] 09-17-2024 15:37-0400 Body height 177.8 cm Juvencio Rosa DO Work Phone: [facility] 09-17-2024 15:37-0400 Body mass index (BMI) [Ratio] 55.1 kg/m2 Juvencio Rosa DO Work Phone: [facility] 09-17-2024 15:37-0400 Body temperature 99 [degF] Juvencio Rosa DO Work Phone: [facility] 09-17-2024 15:37-0400 Body weight 174.34 kg Juvencio Rosa DO Work Phone: [facility] 09-17-2024 15:37-0400 Diastolic blood pressure 100 mm[Hg] Juvencio Rosa DO Work Phone: [facility] 09-17-2024 15:37-0400 Heart rate 74 /min Juvencio Rosa DO Work Phone: [facility] 09-17-2024 15:37-0400 Respiratory rate 18 /min Juvencio Rosa DO Work Phone: [facility] 09-17-2024 15:37-0400 SaO2% (BldA) [Mass fraction] 96 % Juvencio Rosa DO Work Phone: [facility] 09-17-2024 15:37-0400 Systolic blood pressure 152 mm[Hg] Juvencio Rosa DO Work Phone: [facility] 07-08-2024 15:21-0400 Body height 177.8 cm Juvencio Rosa DO Work Phone: [facility] 07-08-2024 15:21-0400 Body mass index (BMI) [Ratio] 55.2 kg/m2 Juvencio Rosa DO Work Phone: [facility] 07-08-2024 15:21-0400 Body weight 174.63 kg Juvencio Rosa DO Work Phone: [facility] 07-08-2024 15:21-0400 Diastolic blood pressure 80 mm[Hg] Juvencio Rosa DO Work Phone: [facility] 07-08-2024 15:21-0400 Heart rate 95 /min Juvencio Rosa DO Work Phone: [facility] 07-08-2024 15:21-0400 Respiratory rate 18 /min Juvencio Rosa DO Work Phone: [facility] 07-08-2024 15:21-0400 SaO2% (BldA) [Mass fraction] 95 % Juvencio Rosa DO Work Phone: [facility] 07-08-2024 15:21-0400 Systolic blood pressure 128 mm[Hg] Juvencio Rosa DO Work Phone: [facility] 06-18-2024 15:39-0400 Body height 177.8 cm Juvencio Rosa DO Work Phone: [facility] 06-18-2024 15:39-0400 Body mass index (BMI) [Ratio] 54.1 kg/m2 Juvencio Rosa DO Work Phone: [facility] 06-18-2024 15:39-0400 Body temperature 97.5 [degF] Juvencio Rosa DO Work Phone: [facility] 06-18-2024 15:39-0400 Body weight 171 kg Juvencio Rosa DO Work Phone: [facility] 06-18-2024 15:39-0400 Diastolic blood pressure 78 mm[Hg] Juvencio Rosa DO Work Phone: [facility] 06-18-2024 15:39-0400 Heart rate 60 /min Juvencio Rosa DO Work Phone: [facility] 06-18-2024 15:39-0400 SaO2% (BldA) [Mass fraction] 99 % Juvencio Rosa DO Work Phone: [facility] 06-18-2024 15:39-0400 Systolic blood pressure 160 mm[Hg] Juvencio Rosa DO Work Phone: [facility] 06-10-2024 15:34-0400 Body height 177.8 cm [facility] 06-10-2024 15:34-0400 Body mass index (BMI) [Ratio] 54.2 kg/m2 [facility] 06-10-2024 15:34-0400 Body temperature 97.8 [degF] [facility] 06-10-2024 15:34-0400 Body weight 171.45 kg [facility] 06-10-2024 15:34-0400 Diastolic blood pressure 100 mm[Hg] [facility] 06-10-2024 15:34-0400 Heart rate 62 /min [facility] 06-10-2024 15:34-0400 Respiratory rate 18 /min [facility] 06-10-2024 15:34-0400 SaO2% (BldA) [Mass fraction] 98 % [facility] 06-10-2024 15:34-0400 Systolic blood pressure 142 mm[Hg] [facility] 03-11-2024 15:38-0500 Body height 177.8 cm Juvencio Rosa DO Work Phone: [facility] 03-11-2024 15:38-0500 Body mass index (BMI) [Ratio] 52.6 kg/m2 Juvencio Rosa DO Work Phone: [facility] 03-11-2024 15:38-0500 Body temperature 97.2 [degF] Juvencio Rosa DO Work Phone: [facility] 03-11-2024 15:38-0500 Body weight 166.46 kg Juvencio Rosa DO Work Phone: [facility] 03-11-2024 15:38-0500 Diastolic blood pressure 88 mm[Hg] Juvencio Rosa DO Work Phone: [facility] 03-11-2024 15:38-0500 Heart rate 62 /min Juvencio Rosa DO Work Phone: [facility] 03-11-2024 15:38-0500 Respiratory rate 18 /min Juvencio Rosa DO Work Phone: [facility] 03-11-2024 15:38-0500 SaO2% (BldA) [Mass fraction] 97 % Juvencio Rosa DO Work Phone: [facility] 03-11-2024 15:38-0500 Systolic blood pressure 122 mm[Hg] Juvencio Rosa DO Work Phone: [facility] 02-10-2024 15:08-0500 Body height 177.8 cm Juvencio Rosa DO Work Phone: [facility] 02-10-2024 15:08-0500 Body mass index (BMI) [Ratio] 54.5 kg/m2 Juvencio Rosa DO Work Phone: [facility] 02-10-2024 15:08-0500 Body temperature 98.2 [degF] Juvencio Rosa DO Work Phone: [facility] 02-10-2024 15:08-0500 Body weight 172.36 kg Juvencio Rosa DO Work Phone: [facility] 02-10-2024 15:08-0500 Diastolic blood pressure 112 mm[Hg] Juvencio Rosa DO Work Phone: [facility] 02-10-2024 15:08-0500 Heart rate 59 /min Juvencio Rosa DO Work Phone: [facility] 02-10-2024 15:08-0500 Respiratory rate 18 /min Juvencio Rosa DO Work Phone: [facility] 02-10-2024 15:08-0500 SaO2% (BldA) [Mass fraction] 99 % Juvencio Rosa DO Work Phone: [facility] 02-10-2024 15:08-0500 Systolic blood pressure 170 mm[Hg] Juvencio Rosa DO Work Phone: [facility] 01-16-2024 15:20-0500 Body height 177.8 cm [facility] 01-16-2024 15:20-0500 Body mass index (BMI) [Ratio] 52.4 kg/m2 [facility] 01-16-2024 15:20-0500 Body temperature 97.8 [degF] [facility] 01-16-2024 15:20-0500 Body weight 166 kg [facility] 01-16-2024 15:20-0500 Diastolic blood pressure 78 mm[Hg] [facility] 01-16-2024 15:20-0500 Heart rate 72 /min [facility] 01-16-2024 15:20-0500 Respiratory rate 16 /min [facility] 01-16-2024 15:20-0500 SaO2% (BldA) [Mass fraction] 98 % [facility] 01-16-2024 15:20-0500 Systolic blood pressure 124 mm[Hg] [facility] 2024 15:17-0400 Body height 177.8 cm [facility] 2024 15:17-0400 Body mass index (BMI) [Ratio] 52.4 kg/m2 [facility] 2024 15:17-0400 Body temperature 98.6 [degF] [facility] 2024 15:17-0400 Body weight 166 kg [facility] 2024 15:17-0400 Diastolic blood pressure 94 mm[Hg] [facility] 2024 15:17-0400 Heart rate 74 /min [facility] 2024 15:17-0400 Respiratory rate 16 /min [facility] 2024 15:17-0400 SaO2% (BldA) [Mass fraction] 98 % [facility] 2024 15:17-0400 Systolic blood pressure 158 mm[Hg] [facility] 12-25-2023 15:18-0400 Diastolic blood pressure 100 mm[Hg] [facility] 12-25-2023 15:18-0400 Systolic blood pressure 152 mm[Hg] [facility] 12-25-2023 15:15-0400 Body height 177.8 cm [facility] 12-25-2023 15:15-0400 Body mass index (BMI) [Ratio] 52.6 kg/m2 [facility] 12-25-2023 15:15-0400 Body weight 166.46 kg [facility] 12-25-2023 15:15-0400 Heart rate 70 /min [facility] 12-25-2023 15:15-0400 Respiratory rate 18 /min [facility] 12-25-2023 15:15-0400 SaO2% (BldA) [Mass fraction] 98 % [facility] 11-06-2022 16:30-0400 Body height 177.8 cm Juvencio Lee Other [email or web address] Other 11-06-2022 16:30-0400 Body mass index (BMI) [Ratio] 49.93 kg/m2 Juvencio Rosa Other [email or web address] Other 11-06-2022 16:30-0400 Body temperature 97.7 [degF] Juvencio Rosa Other [email or web address] Other 11-06-2022 16:30-0400 Body weight 157.85 kg Juvencio Rosa Other [email or web address] Other 11-06-2022 16:30-0400 Diastolic blood pressure 74 mm[Hg] Juvencio Rosa Other [email or web address] Other 11-06-2022 16:30-0400 Respiratory rate 20 /min Juvencio Rosa Other [email or web address] Other 11-06-2022 16:30-0400 SaO2% (BldA) [Mass fraction] 97 % Juvencio Rosa Other [email or web address] Other 11-06-2022 16:30-0400 Systolic blood pressure 170 mm[Hg] Juvencio Rosa Other [email or web address] Other 10-24-2022 15:15-0400 Body height 177.8 cm Michelle Ibeth Other [email or web address] Other 10-24-2022 15:15-0400 Body mass index (BMI) [Ratio] 50.64 kg/m2 Michelle Ibeth Other [email or web address] Other 10-24-2022 15:15-0400 Body weight 160.12 kg Michelle Ibeth Other [email or web address] Other 10-24-2022 15:15-0400 Diastolic blood pressure 95 mm[Hg] Michelle Ibeth Other [email or web address] Other 10-24-2022 15:15-0400 SaO2% (BldA) [Mass fraction] 97 % Michelle Ibeth Other [email or web address] Other 10-24-2022 15:15-0400 Systolic blood pressure 153 mm[Hg] Michelle Ibeth Other [email or web address] Other 05-02-2022 16:30-0500 Body height 177.8 cm Juvencio Rosa Other [email or web address] Other 05-02-2022 16:30-0500 Body mass index (BMI) [Ratio] 53.94 kg/m2 Juvencio Rosa Other [email or web address] Other 05-02-2022 16:30-0500 Body temperature 97.5 [degF] Juvencio Rosa Other [email or web address] Other 05-02-2022 16:30-0500 Body weight 170.55 kg Juvencio Rosa Other [email or web address] Other 05-02-2022 16:30-0500 Diastolic blood pressure 90 mm[Hg] Juvencio Rosa Other [email or web address] Other 05-02-2022 16:30-0500 Respiratory rate 20 /min Juvencio Rosa Other [email or web address] Other 05-02-2022 16:30-0500 SaO2% (BldA) [Mass fraction] 97 % Juvencio Rosa Other [email or web address] Other 05-02-2022 16:30-0500 Systolic blood pressure 150 mm[Hg] Juvencio Rosa Other [email or web address] Other 01-31-2022 19:45-0500 Body height 177.8 cm Juvencio Rosa Other [email or web address] Other 01-31-2022 19:45-0500 Body mass index (BMI) [Ratio] 54.95 kg/m2 Juvencio Rosa Other [email or web address] Other 01-31-2022 19:45-0500 Body temperature 99.1 [degF] Juvencio Rosa Other [email or web address] Other 01-31-2022 19:45-0500 Body weight 173.73 kg Juvencio Rosa Other [email or web address] Other 01-31-2022 19:45-0500 Diastolic blood pressure 92 mm[Hg] Juvencio Rosa Other [email or web address] Other 01-31-2022 19:45-0500 Respiratory rate 20 /min Juvencio Rosa Other [email or web address] Other 01-31-2022 19:45-0500 SaO2% (BldA) [Mass fraction] 98 % Juvencio Rosa Other [email or web address] Other 01-31-2022 19:45-0500 Systolic blood pressure 142 mm[Hg] Juvencio Rosa Other [email or web address] Other 11-24-2021 09:45-0400 Body height 177.8 cm Juvencio Rosa Other [email or web address] Other 11-24-2021 09:45-0400 Body mass index (BMI) [Ratio] 53.23 kg/m2 Juvencio Rosa Other [email or web address] Other 11-24-2021 09:45-0400 Body temperature 97.6 [degF] Juvencio Rosa Other [email or web address] Other 11-24-2021 09:45-0400 Body weight 168.29 kg Juvencio Rosa Other [email or web address] Other 11-24-2021 09:45-0400 Diastolic blood pressure 102 mm[Hg] Juvencio Rosa Other [email or web address] Other 11-24-2021 09:45-0400 Respiratory rate 20 /min Juvencio Rosa Other [email or web address] Other 11-24-2021 09:45-0400 SaO2% (BldA) [Mass fraction] 99 % Juvencio Rosa Other [email or web address] Other 11-24-2021 09:45-0400 Systolic blood pressure 148 mm[Hg] Juvencio Rosa Other [email or web address] Other 10-25-2021 16:15-0400 Body height 177.8 cm Michelle Ibeth Other [email or web address] Other 10-25-2021 16:15-0400 Body mass index (BMI) [Ratio] 54.09 kg/m2 Michelle Ibeth Other [email or web address] Other 10-25-2021 16:15-0400 Body temperature 97.3 [degF] Michelle Ibeth Other [email or web address] Other 10-25-2021 16:15-0400 Body weight 171.01 kg Michelle Ibeth Other [email or web address] Other 10-25-2021 16:15-0400 Diastolic blood pressure 111 mm[Hg] Michelle Ibeth Other [email or web address] Other 10-25-2021 16:15-0400 SaO2% (BldA) [Mass fraction] 96 % Michelle Ibeth Other [email or web address] Other 10-25-2021 16:15-0400 Systolic blood pressure 182 mm[Hg] Michelle Ibeth Other [email or web address] Other 03-08-2021 17:30-0500 Body height 177.8 cm Juvencio Rosa Other [email or web address] Other 03-08-2021 17:30-0500 Body mass index (BMI) [Ratio] 57.93 kg/m2 Juvencio Rosa Other [email or web address] Other 03-08-2021 17:30-0500 Body temperature 98.9 [degF] Juvencio Rosa Other [email or web address] Other 03-08-2021 17:30-0500 Body weight 183.16 kg Juvencio Rosa Other [email or web address] Other 03-08-2021 17:30-0500 Diastolic blood pressure 90 mm[Hg] Juvencio Rosa Other [email or web address] Other 03-08-2021 17:30-0500 Respiratory rate 20 /min Juvencio Rosa Other [email or web address] Other 03-08-2021 17:30-0500 SaO2% (BldA) [Mass fraction] 96 % Juvencio Rosa Other [email or web address] Other 03-08-2021 17:30-0500 Systolic blood pressure 144 mm[Hg] Juvencio Rosa Other [email or web address] Other 01-23-2021 17:45-0500 Body height 177.8 cm Juvencio Rosa Other [email or web address] Other 01-23-2021 17:45-0500 Body mass index (BMI) [Ratio] 57.24 kg/m2 Juvencio Rosa Other [email or web address] Other 01-23-2021 17:45-0500 Body temperature 98.7 [degF] Juvencio Rosa Other [email or web address] Other 01-23-2021 17:45-0500 Body weight 180.99 kg Juvencio Rosa Other [facility] Other 01-23-2021 17:45-0500 Diastolic blood pressure 90 mm[Hg] Juvencio Rosa Other [email or web address] Other 01-23-2021 17:45-0500 Respiratory rate 20 /min Juvencio Rosa Other [email or web address] Other 01-23-2021 17:45-0500 SaO2% (BldA) [Mass fraction] 98 % Juvencio Lee Other [email or web address] Other 01-23-2021 17:45-0500 Systolic blood pressure 138 mm[Hg] Juvencio Howardes Other [place] Other Encounters Encounter Date Encounter Type Care Provider Facility Start: 10-24-2024 Non-patient / Non-visit María Santana MD -[facility] Work Phone: Start: 10-23-2024 End: 10-23-2024 ambulatory Juvencioasif Adamsgles DO Work Phone: [facility] Work Phone: Start: 10-23-2024 End: 10-23-2024 Departed Referred María Santana MD -[facility] Start: 10-23-2024 Non-patient / Non-visit Randi Porras Jose DO -[facility] Work Phone: Start: 09-24-2024 End: 09-24-2024 ambulatory Juvencioasif Adamsgles DO Work Phone: [facility] Work Phone: Start: 09-24-2024 End: 09-24-2024 Patient encounter procedure Edvin Hastings MD -[facility] [place] Work Phone: Start: 09-17-2024 End: 09-17-2024 ambulatory Juvencio M. Rosa DO Work Phone: [facility] Work Phone: Start: 09-17-2024 End: 09-17-2024 Patient encounter procedure Juvencio Fish DO -[facility] Family Medicine [place] Work Phone: Start: 08-10-2024 End: 08-10-2024 ambulatory Juvencio Abe. Rosa DO Work Phone: [facility] Work Phone: Start: 08-10-2024 End: 08-10-2024 Patient encounter procedure Juvencio Rosa DO Work Phone: [facility] [place] Work Phone: Start: 07-13-2024 End: 07-13-2024 Patient encounter procedure Juvencio Rosa DO Work Phone: [facility] [place] Work Phone: Start: 07-13-2024 End: 07-13-2024 ambulatory Juvencio Abe. Rosa DO Work Phone: [facility] Work Phone: Start: 07-08-2024 End: 07-08-2024 ambulatory Juvencio Abe. Rosa DO Work Phone: [facility] Work Phone: Start: 07-08-2024 End: 07-08-2024 Patient encounter procedure Juvencio Rosa DO Work Phone: [facility] Work Phone: Start: 06-18-2024 End: 06-18-2024 Patient encounter procedure Juvencio Rosa DO Work Phone: [facility] [place] Work Phone: Start: 06-10-2024 End: 06-10-2024 ambulatory [facility] Work Phone: Start: 06-10-2024 End: 06-10-2024 Patient encounter procedure [facility] [place] Work Phone: Start: 05-20-2024 End: 05-20-2024 ambulatory [facility] Work Phone: Start: 05-20-2024 End: 05-20-2024 Patient encounter procedure [facility] Work Phone: Start: 03-11-2024 End: 03-11-2024 ambulatory Juvencio M. Rosa DO Work Phone: [facility] Work Phone: Start: 03-11-2024 End: 03-11-2024 Patient encounter procedure Juvencio Rosa DO Work Phone: [facility] [place] Work Phone: Start: 02-13-2024 End: 02-13-2024 Patient encounter procedure Juvencio Rosa DO Work Phone: [facility] Work Phone: Start: 02-10-2024 End: 02-10-2024 Patient encounter procedure Juvencio Rosa DO Work Phone: [facility] [place] Work Phone: Start: 02-10-2024 Non-patient / Non-visit Juvencio Rosa DO Work Phone: [facility] [place] Work Phone: Start: 02-09-2024 Non-patient / Non-visit Juvencio Rosa DO Work Phone: [facility] Work Phone: Start: 02-08-2024 Non-patient / Non-visit Juvencio Rosa DO Work Phone: [facility] Work Phone: Start: 02-07-2024 Non-patient / Non-visit Juvencio Rosa DO Work Phone: [facility] Work Phone: Start: 02-05-2024 End: 02-05-2024 Patient encounter procedure Juvencio Howardes DO Work Phone: [facility] [place] Work Phone: Start: 02-05-2024 End: 02-05-2024 ambulatory Juvencio M. Rosa Facility:[facility] Start: 01-16-2024 End: 01-16-2024 ambulatory [facility] Work Phone: Start: 01-16-2024 End: 01-16-2024 Patient encounter procedure [facility] [place] Work Phone: Start: 01-08-2024 End: 01-08-2024 ambulatory EDVIN HASTINGS [place] Start: 01-08-2024 End: 01-08-2024 Patient encounter procedure EDVIN HASTINGS [facility] Start: 2024 End: 2024 ambulatory [facility] Work Phone: Start: 2024 End: 2024 Patient encounter procedure [facility] [place] Work Phone: Start: 12-25-2023 End: 12-25-2023 ambulatory JUVENCIO M ROSA [place] Start: 12-25-2023 End: 12-25-2023 Patient encounter procedure JUVENCIO Abe ADAMSROSA [facility] Start: 12-25-2023 End: 12-25-2023 ambulatory [facility] Work Phone: Start: 12-25-2023 End: 12-25-2023 Patient encounter procedure [facility] [place] Work Phone: Start: 04-12-2023 End: 04-12-2023 ambulatory Juvencio Rosa Other [email or web address] Other Start: 04-12-2023 Telephone encounter Juvencio Rosa [facility] Start: 02-28-2023 End: 02-28-2023 ambulatory Juvencio Rosa Other [email or web address] Other Start: 02-28-2023 Telephone encounter Juvencio Rosa [facility] Start: 01-08-2023 End: 01-08-2023 ambulatory Juvencio Rosa Other [email or web address] Other Start: 01-08-2023 Telephone encounter Juvencio Rosa [facility] Start: 12-06-2022 End: 12-06-2022 ambulatory Juvencio Rosa Other [email or web address] Other Start: 12-06-2022 Telephone encounter Juvencio Rosa [facility] Start: 11-20-2022 End: 11-20-2022 ambulatory Juvencio Rosa Other [email or web address] Other Start: 11-20-2022 Telephone encounter Juvencio Rosa [facility] Start: 11-06-2022 End: 11-06-2022 ambulatory Juvencio Rosa Other [email or web address] Other Start: 11-06-2022 Office outpatient visit 15 minutes Juvencio Rosa [facility] Start: 10-30-2022 End: 10-30-2022 ambulatory Juvencio Rosa Other [email or web address] Other Start: 10-30-2022 Telephone encounter Juvencio Rosa [facility] Start: 10-24-2022 End: 10-24-2022 Patient encounter procedure DO Juvencio Rosa Work Phone: [facility]-Sleep Lab Work Phone: Start: 10-24-2022 End: 10-24-2022 ambulatory DO Juvencio iFsh. Rosa Work Phone: [facility] Work Phone: Start: 10-24-2022 Office outpatient visit 10 minutes Michelleruth Cristina [facility] Start: 10-16-2022 End: 10-16-2022 ambulatory Juvencio Orsa Other [email or web address] Other Start: 10-16-2022 Telephone encounter Juvencio Rosa [facility] Start: 10-10-2022 End: 10-10-2022 Patient encounter procedure JUVENCIO M ROSA [facility] Start: 09-18-2022 End: 09-18-2022 ambulatory Juvencio Rosa Other [email or web address] Other Start: 09-18-2022 Telephone encounter Juvencio Rosa [facility] Start: 05-07-2022 End: 05-07-2022 ambulatory Juvencio Rosa Other [email or web address] Other Start: 05-07-2022 Telephone encounter Juvencio Rosa [facility] Start: 05-04-2022 End: 05-04-2022 ambulatory Juvencio Rosa Other [email or web address] Other Start: 05-04-2022 Telephone encounter Juvencio Rosa [facility] Start: 05-02-2022 End: 05-02-2022 ambulatory Juvencio Rosa Other [email or web address] Other Start: 05-02-2022 Office outpatient visit 15 minutes Juvencio Rosa [facility] Start: 01-31-2022 End: 01-31-2022 ambulatory Juvencio Rosa Other [email or web address] Other Start: 01-31-2022 Office outpatient visit 15 minutes Juvencio Rosa [facility] Start: 12-22-2021 End: 12-22-2021 ambulatory Juvencio Rosa Other [email or web address] Other Start: 12-22-2021 Telephone encounter Juvencio Rosa [facility] Start: 11-24-2021 End: 11-24-2021 ambulatory Juvencio Rosa Other [email or web address] Other Start: 11-24-2021 Office outpatient visit 15 minutes Juvencio Rosa [facility] Start: 11-20-2021 End: 11-20-2021 ambulatory Juvencio Rosa Other [email or web address] Other Start: 11-20-2021 Telephone encounter Juvencio Rosa [facility] Start: 10-25-2021 End: 10-25-2021 Patient encounter procedure DO Juvencio Rosa Work Phone: [facility] Start: 10-25-2021 End: 10-25-2021 ambulatory Michelle Ibeth Other [email or web address] Other Start: 10-25-2021 Office outpatient visit 10 minutes Michelle Ibeth [facility] Start: 09-07-2021 End: 09-07-2021 ambulatory Juvencio Rosa Other [email or web address] Other Start: 09-07-2021 Telephone encounter Juvencio Rosa [facility] Start: 07-24-2021 End: 07-24-2021 ambulatory Juvencio Rosa Other [email or web address] Other Start: 07-24-2021 Telephone encounter Juvencio Rosa [facility] Start: 05-31-2021 End: 05-31-2021 ambulatory Juvencio Rosa Other [email or web address] Other Start: 05-31-2021 Telephone encounter Juvencio Rosa [facility] Start: 05-30-2021 End: 05-30-2021 Patient encounter procedure DO Juvencio Rosa Work Phone: [facility] Start: 05-24-2021 End: 05-24-2021 ambulatory Juvencio Rosa Other [email or web address] Other Start: 05-24-2021 Telephone encounter Juvencio Rosa [facility] Start: 05-16-2021 End: 05-16-2021 ambulatory Juvencio Rosa Other [email or web address] Other Start: 05-16-2021 Telephone encounter Juvencio Rosa [facility] Start: 04-14-2021 End: 04-14-2021 ambulatory Juvencio Rosa Other [email or web address] Other Start: 04-14-2021 Telephone encounter Juvencio Rosa [facility] Start: 03-08-2021 End: 03-08-2021 ambulatory Juvencio Rosa Other [email or web address] Other Start: 03-08-2021 Office outpatient visit 15 minutes Juvencio Rosa [facility] Start: 03-08-2021 Telephone encounter Juvencio Rosa [facility] Start: 02-07-2021 End: 02-08-[address] HENNING M ROSA Facility: Start: 01-23-2021 End: 01-23-2021 ambulatory Juvencio Rosa Other [email or web address] Other Start: 01-23-2021 Office outpatient visit 25 minutes Juvencioasif Lee [facility] Start: 08-30-2020 ambulatory ERMELINDA Hawthorne y:H1 Procedures Date Procedure Procedure Detail Performing Clinician Start: 08-10-2024 Doppler ultrasonogra phy of kidney Juvencio Rosa DO Work Phone: Start: 02-05-2024 Duplex scan of lower limb veins Juvencio Rosa DO Work Phone: Plan of Treatment Date Care Activity Detail Author Start: 10-23-2024 Urine culture [facility] Start: 10-23-2024 Bacteria identified in Urine by Culture Urine Culture [facility] Start: 08-10-2024 Doppler ultrasonogra phy of kidney US renal doppler [facility] Start: 08-10-2024 US Unspecified body region [facility] Start: 07-13-2024 Aldosterone [Mass/vo lume] in Serum or Plasma [facility] Start: 07-13-2024 Renin [Enzymatic activity/volume] in Plasma [facility] Start: 07-13-2024 [facility] Start: 07-08-2024 [facility] Start: 02-10-2024 Patient referral [facility] Work Phone: Aldosterone [Mass/vo lume] in Serum or Plasma [facility] Creatinine [Mass/vol ume] in Urine [facility] Metanephrines [Mass/ volume] in 24 hour Urine [facility] Metanephrines/Creati nine [Mass Ratio] in Urine [facility] Normetanephrine [Mass/volume] in 24 hour Urine [facility] Patient referral [facility] Work Phone: Renin [Enzymatic activity/volume] in Plasma [facility] Lower extremity v ein - bilateral [facility] US Lower extremity v ein - bilateral [facility] US Unspecified body region F [facility] Immunizations Immunization Date Immunization Notes Care Provider Fa lisbeth 08-14-2020 Do not use COVID-19 Pfizer 2 dose Juvencio Rosa Other [facility] 07-24-2020 COVID-19 Vaccine Pfizer - Documentation Purposes Only Juvencio Rosa Other [facility] NEGATED: Highlighted row has not occurred!01-23-2021 influenza, injectable, quadrivalent, contains preservative Patient Objection Juvencio Rosa Other [email or web address] Other NEGATED: Highlighted row has not occurred!12-09-2019 influenza, injectable, quadrivalent, contains preservative Patient Objection Juvencio Rosa Other [email or web address] Other NEGATED: Highlighted row has not occurred!01-05-2019 influenza, injectable, quadrivalent, contains preservative Patient Objection Juvencio Rosa Other [email or web address] Other NEGATED: Highlighted row has not occurred!01-04-2017 influenza, injectable, quadrivalent, contains preservative Patient Objection Juvencio Rosa Other [email or web address] Other Payers Date Payer Category Payer Self-pay [id number] 1975 Unknown [id number] 2.16.84 [id number] 1975 Unknown [id number] 2.16.84 [id number] 1973 Unknown [id number] 2.16.8 [id number] 1973 Unknown [id number] 2.16.8 [id number] 1959 Unknown [id number] Unknown [id number] 2.16.8 [id number] Unknown [id number] 2.16.8 [id number] Unknown [id number] 2.16.8 [id number] Unknown [id number] 2.16.8 [id number] Unknown [id number] 2.16.8 [id number] Social History Date Type Detail Facility Tobacco smoking stat us AKIS Unknown if ever smoked [email or web address] Other Start: 1975 Sex Assigned At Male F [facility] Sex Assigned At [facility] Tobacco smoking status No Smokin g Status Entered [facility] Start: 12-25-2023 End: 07-08-2024 Tobacco smoking status NHIS Never smoked tobacco (finding) [facility] Start: 01-16-2024 End: 08-11-2024 Sex Male (finding) [facility] Clinical Notes 01-23-2021 to 09-17-2024 Note Date & Type Note Facility 09-17-2024 Evaluation note Diagnosis Onset Date Resolution Essential (primary) hypertension acute September 17, 2024 3:16pm Venous insufficiency of left leg acute September 24, 2024 3:37pm [facility] Work Phone: 1(502) 554-164705-07-2025 Evaluation note* Diagnosis Onset Date Resolution Status Admit Date Dyspnea on exertion acute July 082024 3:10pm Essential (primary) hypertension acute July 08, 2024 3: 10pm Obstructive sleep apnea acute M 2024 3:10pm Elevated serum creatinine noneactive July 08, 2024 3:10pm Essential (primary) hypertension acute September 17, 2024 3:16pm [facility] Work Phone: 1(409) 613-210304-09-2025 Evaluation note* Diagnosis Onset Date Resolution Status Admit Date Essential (primary) hypertension acute June 10, 2024 3:32pm Body mass index [BMI] 50.0-59.9, adult noneactive June 10, 2024 3:32pm Venous insufficiency of left leg acute June 18, 2024 3:36pm [facility] Work Phone: 1([phone]) 881-760504-09-2025 Evaluation note* Diagnosis Onset Date Resolution Status [...] serum creatinine noneactive July 08, 2024 3:10pm [facility] Work Phone: 1(284) 645-788901-08-2025 Evaluation note* Diagnosis Onset Date Resolution Status Admit Date Essential (primary) hypertension acute March 11 3:24pm [facility] Work Phone: 1(942) 604-632310-23-2024 Evaluation note* Diagnosis Onset Date Resolution Status Admit Date Essential (primary) hypertension acute December 24 3:13pm Left leg swelling noneactive December 25, 2023 3:13pm Swelling of left lower extremity acute January 01 3:14pm [facility] Work Phone: 1([phone]) 927-167410-23-2024 Evaluation note* Diagnosis Onset Date Resolution Status [...] Essential (primary) hypertension acute March 11 3:24pm [facility] Work Phone: 1(457) 126-538912-28-2023 Evaluation note* Encounter Date Diagnosis Assessment Notes Treatment Notes Treatment Clinical Notes Feb, Decreased GFR (ICD-10 - R94.4) [email or web address] Other 10-05-2023 Evaluation note* Encounter Date Diagnosis Assessment Notes Treatment Notes Treatment Clinical Notes Dec, Decreased GFR (ICD-10 - R94.4) [email or web address] Other 09-19-2023 Evaluation note* Encounter Date Diagnosis Assessment Notes Treatment Notes Treatment Clinical Notes Nov, Essential (primary) hypertension (ICD-10 - I10) [email or web address] Other 09-05-2023 Evaluation note* Encounter Date Diagnosis [...] diet, and weight loss are always encouraged. [email or web address] Other 08-23-2023 Evaluation note* Encounter Date Diagnosis Assessment Notes Treatment Notes Treatment Clinical Notes Oct, Obstructive sleep apnea (ICD-10 - G47.33) [email or web address] Other 07-18-2023 Evaluation note* Encounter Date Diagnosis Assessment Notes Treatment Notes Treatment Clinical Notes Sep, Essential (primary) hypertension (ICD-10 - I10) [email or web address] Other 03-03-2023 Evaluation note* Encounter Date Diagnosis Assessment Notes Treatment Notes Treatment Clinical Notes May, Essential (primary) hypertension (ICD-10 - I10) [email or web address] Other 03-01-2023 Evaluation note* Encounter Date Diagnosis Assessment Notes Treatment Notes Treatment Clinical Notes May, Essential (primary) hypertension (ICD-10 - I10) May, Chronic fatigue (ICD-10 - R53.82) May, Other The goal of hypertension as always to have a blood pressure within acceptable limits, with patient staying compliant with medication. Increased activity, monitoring diet, and weight loss are always encouraged. [email or web address] Other 03-01-2023 Evaluation note* Encounter Date Diagnosis [...] diet, and weight loss are always encouraged. [email or web address] Other 11-30-2022 Evaluation note* Encounter Date Diagnosis [...] diet, and weight loss are always encouraged. [email or web address] Other 10-21-2022 Evaluation note* Encounter Date Diagnosis Assessment Notes Treatment Notes Treatment Clinical Notes Dec, Essential (primary) hypertension (ICD-10 - I10) [email or web address] Other 09-23-2022 Evaluation note* Encounter Date Diagnosis Assessment Notes Treatment Notes Treatment Clinical Notes Nov, Essential (primary) hypertension (ICD-10 - I10) eRX sent. Will recheck in 2-3 months. Nov, Other The goal of hypertension as always to have a blood pressure within acceptable limits, with patient staying compliant with medication. Increased activity, monitoring diet, and weight loss are always encouraged. [email or web address] Other 09-19-2022 Evaluation note* Encounter Date Diagnosis Assessment Notes Treatment Notes Treatment Clinical Notes Nov, Essential (primary) hypertension (ICD-10 - I10) [email or web address] Other 08-24-2022 Evaluation note* Encounter Date Diagnosis Assessment Notes Treatment Notes Treatment Clinical Notes Oct, Obstructive sleep apnea (ICD-10 - G47.33) [email or web address] Other 05-23-2022 Evaluation note* Encounter Date Diagnosis Assessment Notes Treatment Notes Treatment Clinical Notes July, Essential (primary) hypertension (ICD-10 - I10) [email or web address] Other 03-23-2022 Evaluation note* Encounter Date Diagnosis Assessment Notes Treatment Notes Treatment Clinical Notes May, Chronic fatigue (ICD-10 - R53.82) [email or web address] Other 02-11-2022 Evaluation note* Encounter Date Diagnosis Assessment Notes Treatment Notes Treatment Clinical Notes Apr, Essential (primary) hypertension (ICD-10 - I10) [email or web address] Other 01-05-2022 Evaluation note* Encounter Date Diagnosis [...] diet, and weight loss are always encouraged. [email or web address] Other 11-22-2021 Evaluation note* Encounter Date Diagnosis [...] diet, and weight loss are always encouraged. [facility] Other Evaluation + Plan note No data available for this section [facility] information available [facility] Work Phone: Evaluation noteNo [facility]Well[facility] Other Evaluation note* Diagnosis Onset Date Resolution Status Essential (primary) hypertension acute Left leg swelling noneactive [facility] Work Phone: Evaluation note* Diagnosis Onset Date Resolution Status Admit Date Essential (primary) hypertension acu te June 10, 2024 3:32pm [facility] Work Phone: History general Narrative - Reported* Type Description Date Medical History Hypertension [facility] Other History general Narrative - Reported* Type Description Date Medical History Hypertension Medical History Sleep Apnea [facility] Other Hospital Discharge instructions No data available for this section [facility] No data available for this section [facility] (narrative)No reason for referral [facility] Work Phone: Summary Purpose Family History No Family History Records Found Relationship Condition Age at Onset Recorded Date/T lucas brother Diabetes mellitus Unknown Unknown father Diabetes mellitus Unknown Hypertension Unknown mother Unknown Diabetes mellitus Unknown Malignant neoplasm of pancreas Unknown Advance Directives No Advanced Directives Records Found Advance Directive Response Recorded Date/ Time Advance [...] REF BY DR. LEE FOR LEG SWELLING [facility] 2023 3:14pm [place] [facility] [place] 3:15pm Reason for Visit Admit Date Essential (primary) hypertension December 25, 2023 3:13pm Left leg swelling December 25, 2023 3 :13pm Swelling of left lower extremity 2024 3:14pm Chief Complaint Admit Date BP concerns December 25, 2023 3 :13pm REF BY DR. LEE FOR LEG SWELLING Dec 2023 3:14pm [place] [facility] [place] 16, [place]24 3:15pm I83.813 February 05, 2024 3 :22pm Amb Documentation February 10, 2024 1 2:03pm chest congestion February 10, 2024 3 :07pm GO OVER F/F DONE [place] [facility] [place] February 13, 2024 3:29pm one month March 11, 2024 3: 24pm Reason for Visit Admit Date Essential (primary) hypertension December 25, 2023 3:13pm Left leg swelling December 25, 2023 3 :13pm Swelling of left lower extremity 2024 3:14pm Essential (primary) hypertension [facility] 2023 3:07pm Obstructive sleep apnea February 09 3:07pm Venous insufficiency of left leg [facility] 2023 3:29pm Essential (primary) hypertension March 11, [...] no testing September 24, 2024 3 :37pm Chief Complaint Admit Date I10 August 10, 2024 7:58a m 3 month follow up September 17, 2024 3:16 pm 3 mo VV F/U no testing September 24, 2024 3 :37pm Unknown October 23, 2024 9: 56pm Reason for Visit Admit Date Essential (primary) hypertension September 172024 3:16pm Venous insufficiency of left leg September 242024 3:37pm Additional Source Comments (unrecognized sect ion and content) No Status Records FoundNo Status Records FoundNo Status Records Found INFORMATION SOURCE (unrecogn ized section and content) DATE CREATED AUTHOR 02/12/2021 [facility] DATE CREATED AUTHOR AUTHOR'S ORGANIZ ATION 01/18/2024 [facility] DATE CREATED AUTHOR AUTHOR'S ORGANIZ ATION 10/27/2024 [facility] Care Teams (unrecognized sec tion and content) Team Status: Inactive Member Role Status Dates Juvencio Lee DO Primary Care Provider, Referring Provider Active Eber Krause MD Attending Provider Active Team Status: Active Member Role Status Dates Juvencio Lee DO Primary Care Provider Active Team Status: Inactive Member Role Status Dates Juvencio Lee DO Primary Care Provider Active Michelle Cristina APRN [facility] Attending Provider Active Team Status: Inactive Member [...] Status: Inactive Member Role Status Dates Juvencio M. Rosa , DO Primary Care Provider Active Start: February [...] Status: Inactive Member Role Status Dates Juvencio M. Rosa , DO Primary Care Provider Active Start: August 10, 2024 End: August 10, 2024 Daniel Gloria MD Attending Provider Activ e Start: August 10, 2024 End: August 10, 2024 Team Status: Inactive Member Role Status Dates Juvencio FishBaljeet Rosa DO Primary Care Provider Active Start: July 08, 2024 End: July 08, 2024 Juvencio Lee DO Referring Provider Active S tart: July 08, 2024 End: July 08, 2024 Daniel Gloria MD Attending Provider Activ e Start: July 08, 2024 End: July 08, 2024 Team Status: Inactive Member Role Status Dates Juvencio MBaljeet Lee Primary Care Provider Active Start: September 17, 2024 End: September 17, 2024 Juvencio Howardes DO Attending Provider Active S tart: September 17, 2024 End: September 17, 2024 Team Status: Inactive Member Role Status Dates Juvencio MBaljeet Lee DO Primary Care Provider Active Start: September 24, 2024 End: September 24, 2024 Edvin Hastings MD Attending Provider Active Start: September 24, 2024 End: September 24, 2024 Team Status: Active Member Role Status Dates Juvencio AbeBaljeet Lee Primary Care Provider Active Start: October 23, 2024 Randi Garcia , DO Attending Provider Active Start: October 23, 2024 Team Status: Inactive Member Role Status Dates Juvencio MBaljeet Howardes DO Primary Care Provider Active Start: October 23, 2024 End: October 23, 2024 María Santana MD Attending Provider Active Sta rt: October 23, 2024 End: October 23, 2024 Team Status: Active Member Role Status Dates Juvencio MBaljeet Lee DO Primary Care Provider Active Start: October 24, 2024 María Santana MD Attending Provider Active Sta rt: October 24, 2024 Goals (unrecognized section and content) [...] BE BASED ON THE PRIMARY CLINICAL RECORDS. [employer] [facility]. provides no warranty or guarantee of the accuracy or completeness of information in this document.
[2024-10-29 15:07] LABS: Hematocrit 33.6 % (42.0-54.0); Hemoglobin 10.8 g/dL (14.0-18.0); Immature Granulocytes Abs Auto 0.31 10^3/uL (0.00-0.03); Immature Granulocytes Pct Auto 1.7 % (0.0-0.5); Lymphocytes Absolute Auto 1.7 10^3/uL (1.2-3.8); Mean Corpuscular HGB Conc 32.1 g/dL (29.9-35.2); Mean Corpuscular Hemoglobin 28.3 pg (25.9-34.0); Mean Corpuscular Volume 88.0 fL (80.0-94.0); Platelet Count 547 10^3/uL (150-450); Red Blood Count 3.82 10^6/uL (4.70-6.10); White Blood Count 18.4 10^3/uL (4.0-11.0)
[2024-10-29 15:20] LABS: Alanine Aminotransferase 26 U/L (16-63); Albumin Globulin Ratio 0.3; Albumin Level 1.8 g/dL (3.4-5.0); Alkaline Phosphatase 128 U/L (46-116); Anion Gap 11.9; Aspartate Amino Transferase 23 U/L (15-37); Blood Urea Nitrogen 41.0 mg/dL (7.0-18.0); Calcium 8.4 mg/dL (8.5-10.1); Carbon Dioxide 23.9 mmol/L (21.0-32.0); Chloride 102 mmol/L (98-107); Estimated GFR (African America 24 (>=60 mL/min/1.73m^2); Estimated GFR (Non-African Ame 20 (>=60 mL/min/1.73m^2); Globulin 5.9 g/dL; Glucose 112 mg/dL (74-106); Potassium 3.8 mmol/L (3.5-5.1); Sodium 134 mmol/L (136-145); Total Protein 7.7 g/dL (6.4-8.2)
[2024-10-29] MEDS: ERTAPENEM SODIUM 1 GM in 0.9 % SODIUM CHLORIDE 50 ML IV (16:28)
--- NOTE | 2024-10-29 17:21 | ED.ALLEREA1 ---
HPI - Allergic Reaction General Chief complaint: Allergic Reaction Stated complaint: RASH ALLERGIC REACTION Time Seen by Provider: 10/29/24 14:33 Source: patient Mode of arrival: walk-in Limitations: no limitations History of Present Illness HPI narrative: The patient is a 49-year-old male who was just discharged from the hospital on the of this month which is 2 days ago with a diagnosis of left leg cellulitis, was planned to get ertapenem as outpatient daily when the IV center noted that he had a rash on his anymore for evaluation, the patient he did not receive any antibiotics today and the rash developed at least yesterday when he noticed that. The patient mentioned that he has been taking the antibiotic he was prescribed and he denies any other symptoms He denies any difficulty breathing nausea vomiting or any other concerns And he mentioned that he had no fever and no increase in redness in the left leg Related Data Home Medications ?Medication ?Instructions ?Recorded ?Confirmed carvedilol 25 mg tablet 25 mg PO Q12H 10/22/24 10/23/24 Previous Rx's ?Medication ?Instructions ?Recorded amlodipine 10 mg tablet 10 mg PO DAILY #30 tabs 02/09/24 hydralazine 50 mg tablet 50 mg PO BID #60 tabs 10/27/24 rivaroxaban 10 mg tablet (Xarelto) 10 mg PO QD #20 tabs 10/27/24 torsemide 40 mg tablet 40 mg PO QD #30 tabs 10/27/24 rivaroxaban 10 mg tablet (Xarelto) 10 mg PO DAILY #25 tabs 10/28/24 ceftriaxone 1 gram solution for 1 g IV DAILY 7 days #10 ea 10/29/24 injection prednisone 50 mg tablet 50 mg PO DAILY 3 days #3 tabs 10/29/24 Allergies Allergy/AdvReac Type Severity Reaction Status Date / Time No Known Drug Allergies Allergy Verified 10/29/24 14:28 Review of Systems ROS Status of ROS 10 or more systems reviewed and unremarkable except as noted in history and below [facility] Medical History (Updated 10/29/24 @ 17:47 by Sena Izquierdo MD) Essential hypertension ?I10 - Essential (primary) hypertension (ICD-10) Acute kidney injury ?N17.9 - Acute kidney failure, unspecified (ICD-10) Congestive heart failure ?I50.9 - Heart failure, unspecified (ICD-10) Surgical History (Updated 10/23/24 @ 03:38 by Lora Badillo RN) Deficient knowledge of leg surgery ?Z55.8 - Other problems related to education and literacy (ICD-10) Family History (Updated 10/23/24 @ 03:42 by Lora Badillo RN) Mother Family history of cancer Family history of diabetes mellitus Father Family history of diabetes mellitus Other Family history of hypertension Family history of myocardial infarction Social History (Updated 10/23/24 @ 03:42 by Lora Badillo RN) Within the past year, how often did you have a drink containing alcohol: never Within the past year, how many standard drinks containing alcohol did you have on a typical day: 1 or 2 Within the past year, how often did you have six or more drinks on one occasion: never Total score: 0 Score interpretation: A score less than 4 is consistent with normal alcohol consumption. Smoking status: Never smoker Second hand tobacco smoke exposure: No Non-prescribed substance use: denies use Previous occupational history: [employer] Known occupational exposures/hazards: No Highest level of school completed/degree received: high school graduate Are you now , , , , never or living with a partner: In a typical week, how many times do you talk on the telephone with family, friends, or neighbors: 3 or more times per week How often do you get together with friends or relatives: 3 or more times per week Little interest or pleasure in doing things: not at all Feeling down, depressed, or hopeless: not at all Feel stressed/tense/nervous/anxious/difficulty sleeping: not at all Do you think of yourself as: straight/heterosexual Gender Identity: male Exam Narrative Exam Narrative: Nurses notes and vital signs reviewed and patient is not hypoxic. General: Well-appearing and in no apparent distress. Skin: There is a papular rash on the anterior of the right ankle as well as the right anterior of the forearm bilaterally mostly the upper neck and the patient have no rash in the face or the back of the neck Head: Normocephalic, atraumatic. Neck: Supple, non-tender. Eye: Pupils are equal, round and EOMI. No scleral icterus. Ears, Nose, Mouth, and Throat: TM are clear, no nasal mucosal hypertrophy. Oral mucosa is moist, no posterior oropharynx erythema, uvula is mid-line Cardiovascular: Regular Rate and Rhythm without murmur, gallop or rub. Respiratory: No accessory muscle use or respiratory distress. Lungs are clear to auscultation, no wheezing, rales or rhonchi Chest Wall: no tenderness Back: No midline thoracic or lumbar vertebral tenderness. No CVA tenderness Musculoskeletal: normal ROM, no calf or popliteal tenderness, the patient have chronic edema and mostly lymphedema of the left lower extremity extending to the knee with redness that seems to be warm and chronic although it does not look like active cellulitis GI: Abdomen is soft, non-distended. Normal bowel sounds. No masses appreciated. No tenderness to palpation. No rebound, guarding, or rigidity noted. Neurological: A&O x4. No cranial nerve dysfunction observed. Constitutional Vital Signs, click to edit/add: Last Vital Signs Temp 98 F 10/29/24 14:29 Pulse 72 10/29/24 14:29 Resp 16 10/29/24 14:29 BP 161/87 H 10/29/24 14:29 Pulse Ox 97 10/29/24 14:29 O2 Del Method Room Air 10/29/24 14:29 Course Vital Signs Vital signs: Vital Signs Temperature 98 F 10/29/24 14:29 Pulse Rate 72 10/29/24 14:29 Respiratory Rate 16 10/29/24 14:29 Blood Pressure 161/87 H 10/29/24 14:29 Pulse Oximetry 97 10/29/24 14:29 Oxygen Delivery Method Room Air 10/29/24 14:29 Temperature 98 F 10/29/24 14:29 Pulse Rate 72 10/29/24 14:29 Respiratory Rate 16 10/29/24 14:29 Blood Pressure 161/87 H 10/29/24 14:29 Pulse Oximetry 97 10/29/24 14:29 Oxygen Delivery Method Room Air 10/29/24 14:29 MDM - Allergic Reaction MDM Narrative Medical decision making narrative: Upon arrival it was noted that the patient have a rash that is significant only to the exposed area mostly the anterior of the right ankle as well as the left forearm mildly and within the proximal as well as the right mostly proximal arm The patient CBC did show some elevation of white blood cell but his presentation clinically does not correlate with worsening as it does seem it is resolving and the swelling is not pitting anymore and it is not tense Chemistry showing almost chronic kidney disease similar to his last presentation The rash was papular not hive-like The patient was provided with Benadryl 1 dose as well as Solu-Medrol after which she was feeling much better It was noted that the patient was taking antibiotic including doxycycline and ertapenem today and his rash does not seem to be secondary to the antibiotic After speaking with Dr. Marin the ID doctor the patient did not show up for his follow-up with him yet and I did explain to him my concern that this rash could be secondary to doxycycline the plan was just to continue the ertapenem right now and hold the doxycycline The patient was provided with ertapenem here in the ER with no symptoms--- his showed up at the bedside mentioned that he is not taking any antibiotic p.o. at home although the patient earlier said he is taking his medication The patient was provided with vancomycin and Zosyn also while he was in the hospital Right now the patient will be discharged home with ceftriaxone 1 g daily as replacement to the ertapenem just to make sure that we are covering possible allergic reaction although the patient did not have any symptoms with the ertapenem The patient ceftriaxone will be 1 g daily for the next 7 days with instruction to follow-up with Dr. Marin with appointment to be called tomorrow morning The patient at the bedside also instructed about the monitoring of the symptoms in case of fever or increasing redness in the left leg or any new rash the patient to be coming back to the ER The patient discharged home with the prednisone daily for the next 3 days Lab Data Labs: Lab Results 10/29/24 Range/Units 14:57 WBC 18.4 H (4.0-11.0) 10^3/uL RBC 3.82 L (4.70-6.10) 10^6/uL Hgb 10.8 L (14.0-18.0) g/dL Hct 33.6 L (42.0-54.0) % MCV 88.0 (80.0-94.0) fL MCH 28.3 (25.9-34.0) pg MCHC 32.1 (29.9-35.2) g/dL RDW 14.1 (11.0-15.0) % Plt Count 547 H (150-450) 10^3/uL MPV 9.9 (9.5-13.5) fL Neut % (Auto) 79.5 H (43.0-75.0) % Lymph % (Auto) 9.5 L (20.5-60.0) % [place] % (Auto) 5.2 (1.7-12.0) % Eos % (Auto) 3.6 (0.9-7.0) % Baso % (Auto) 0.5 (0.2-2.0) % Neut # (Auto) 14.6 H (1.4-6.5) 10^3/uL Lymph # (Auto) 1.7 (1.2-3.8) 10^3/uL [place] # (Auto) 1.0 H (0.3-0.8) 10^3/uL Eos # (Auto) 0.7 (0.0-0.7) 10^3/uL Baso # (Auto) 0.1 (0.0-0.1) 10^3/uL Abs Immat Gran (auto) 0.31 H (0.00-0.03) 10^3/uL Imm/Tot Granulo (auto) 1.7 H (0.0-0.5) % Sodium 134 L (136-145) mmol/L Potassium 3.8 (3.5-5.1) mmol/L Chloride 102 (98-107) mmol/L Carbon Dioxide 23.9 (21.0-32.0) mmol/L Anion Gap 11.9 BUN 41.0 H (7.0-18.0) mg/dL Creatinine 3.34 H (0.70-1.30) mg/dL Est GFR ( Amer) 24 L (>=60 mL/min/1.73m^2) Est GFR (Non-Af Amer) 20 L (>=60 mL/min/1.73m^2) BUN/Creatinine Ratio 12.3 Glucose 112 H (74-106) mg/dL Calcium 8.4 L (8.5-10.1) mg/dL Total Bilirubin 0.4 (0.2-1.0) mg/dL AST 23 (15-37) U/L ALT 26 (16-63) U/L Alkaline Phosphatase 128 H (46-116) U/L Total Protein 7.7 (6.4-8.2) g/dL Albumin 1.8 L (3.4-5.0) g/dL Globulin 5.9 g/dL Albumin/Globulin Ratio 0.3 Discharge Plan Discharge Chief Complaint: Allergic Reaction Clinical Impression: Rash Patient Disposition: Home, Self-Care Time of Disposition Decision: 17:48 Condition: Good Prescriptions / Home Meds: New prednisone 50 mg tablet 50 mg PO DAILY 3 Days Qty: 3 0RF ceftriaxone 1 gram recon soln 1 g IV DAILY 7 Days Qty: 10 0RF Discontinued ertapenem 1 gram recon soln 500 mg IV DAILY 10 Days doxycycline monohydrate 100 mg tablet 100 mg PO BID 10 Days Qty: 20 0RF potassium chloride 10 mEq Tablet,Er Particles/Crystals 10 meq PO QD Qty: 30 0RF No Action amlodipine 10 mg tablet 10 mg PO DAILY Qty: 30 11RF carvedilol 25 mg tablet 25 mg PO Q12H hydralazine 50 mg tablet 50 mg PO BID Qty: 60 2RF Xarelto 10 mg Tablet 10 mg PO QD Qty: 20 0RF torsemide 40 mg tablet 40 mg PO QD Qty: 30 1RF Xarelto 10 mg tablet 10 mg PO DAILY Qty: 25 0RF Rx Instructions: for 25 days. This is in addition to the previously prescribed Xarelto 10 mg daily for 20 days. Total 45 days Print Language: Greek Instructions: Acute Rash (ED) Referrals: Dr Marin [Other] - As soon as possible JOHANN JOEL [Primary Care Provider, Family Practice] - 1 week
== END 2024-10-29 18:22 | disposition home or self-care (01) ==
PROVIDERS: Emergency Provider Emergency Medicine; PCP Family Medicine
DX: R21 Rash and other nonspecific skin eruption (principal)
CPT/HCPCS: 36415; 80053; 85025; 96365; 96375; 99285; J1200; J1335; J2919

== ENCOUNTER 2024-10-30 12:18 | Outpatient (RCR) | payer BC, SELFPAY ==
[2024-10-30 14:40] VITALS: BP 184/92; PULSE 76; TEMP 36.6; O2SAT 92
== END 2024-11-01 23:59 | disposition home or self-care (01) ==
LOC: INF 12:18
PROVIDERS: PCP Family Medicine; Visit Provider Emergency Medicine
DX: L03.90 Cellulitis, unspecified (principal)
CPT/HCPCS: 96365; J0696

== ENCOUNTER 2024-10-31 15:50 | Outpatient (RCR) | payer BC, SELFPAY ==
[2024-10-28 15:19] VITALS: BP 178/95; PULSE 93; TEMP 36.7; O2SAT 95
[2024-10-28] MEDS: ERTAPENEM SODIUM 1 GM in 0.9 % SODIUM CHLORIDE 50 ML IV (15:59)
[2024-10-29 13:45] VITALS: BP 143/79; PULSE 79; TEMP 36.9; O2SAT 96
--- NOTE | 2024-10-29 14:22 | PC.NURSE ---
1400: Dr. Santana instructs to refer pt. to PCP. 1404: Dr. Lee office called, left voice message for office nurse. 1423: No return call from Dr. Lee. Dr. Izquierdo, ER physician given update on patient and instructs to have pt. be seen in ER. Pt. aware and compliant. Pt. taken to ER via w/c.
[2024-10-31 16:10] VITALS: BP 165/92; PULSE 67; TEMP 36.3; O2SAT 94
[2024-11-01 15:15] VITALS: BP 153/81; PULSE 70; TEMP 36.5; O2SAT 95
== END 2024-11-01 23:59 | disposition home or self-care (01) ==
LOC: INF 15:50
PROVIDERS: PCP Family Medicine; Visit Provider Internal Medicine
DX: L03.116 Cellulitis of left lower limb (principal)
CPT/HCPCS: 96365; J0696; J1335

== ENCOUNTER 2024-11-06 12:53 | Outpatient (RCR) | payer BC, SELFPAY ==
[2024-11-02 15:12] VITALS: BP 126/80; PULSE 80; TEMP 37; O2SAT 98
[2024-11-03 13:17] VITALS: BP 135/71; PULSE 64; TEMP 36.4; O2SAT 95
[2024-11-04 12:57] VITALS: BP 148/70; PULSE 70; TEMP 36.5; O2SAT 97
[2024-11-05 15:06] VITALS: BP 166/86; PULSE 66; TEMP 36.7; O2SAT 95
== END 2024-12-01 23:59 | disposition home or self-care (01) ==
LOC: INF 12:53
PROVIDERS: PCP Family Medicine; Visit Provider Emergency Medicine
DX: L03.90 Cellulitis, unspecified (principal)
CPT/HCPCS: 96365; J0696

== ENCOUNTER 2024-11-10 11:22 | Outpatient (RCR) | payer BC, SELFPAY ==
--- OUTSIDE RECORDS SUMMARY | 2024-11-09 10:24 | XMS_ITS | Continuity of Care Document ---
Author Organization [facility] Address [address] [place] [address] Phone Care Team Providers Care Sliver Machine Operator Name Role Phone Juvencio Lee DO Primary Care Provider [phone] Juvencio Lee DO Attending Provider Rasheed Bhakta MD Attending Provider Jose Randi Porras Attending Provider [phone] María Santana MD Attending Provider Tyra Eugene Attending Provider Unavailable Sena Izquierdo MD Attending Provider Verena Porras Attending Provider José Luis Marin MD Attending Provider Sena Izquierdo MD Referring Provider Care Teams Patient Care Team Team Status: Active Member Role Status Dates Juvencio Lee DO Primary Care Provider Active Visit Care Team Team Status: Inactive Member Role Status Dates Juvencio Lee DO Primary Care Provider Active Start: September 17, 2024 End: September 17, 2024 Juvencio Lee DO Attending Provider Active S tart: September 17, 2024 End: September 17, 2024 Visit Care Team Team Status: Inactive Member Role Status Dates Juvencio Lee DO Primary Care Provider Active Start: September 24, 2024 End: September 24, 2024 Rasheed Bhakta MD Attending Provider Active Start: September 24, 2024 End: September 24, 2024 Visit Care Team Team Status: Active Member Role Status Dates Juvencio Lee DO Primary Care Provider Active Start: October 23, 2024 Randibenoit Porras Jose DO Attending Provider Active Start: October 23, 2024 Visit Care Team Team Status: Inactive Member Role Status Dates Juvencio Lee DO Primary Care Provider Active Start: October 23, 2024 End: October 23, 2024 María Santana MD Attending Provider Active Sta rt: October 23, 2024 End: October 23, 2024 Visit Care Team Team Status: Active Member Role Status Dates Juvencio Lee DO Primary Care Provider Active Start: October 24, 2024 María Santana MD Attending Provider Active Sta rt: October 24, 2024 Visit Care Team Team Status: Active Member Role Status Dates Juvencio Lee DO Primary Care Provider Active Start: October 25, 2024 María Santana MD Attending Provider Active Sta rt: October 25, 2024 Visit Care Team Team Status: Active Member Role Status Dates Juvencio Lee DO Primary Care Provider Active Start: October 26, 2024 María Santana MD Attending Provider Active Sta rt: October 26, 2024 Visit Care Team Team Status: Active Member Role Status Dates Juvencio Lee DO Primary Care Provider Active Start: October 27, 2024 María Santana MD Attending Provider Active Sta rt: October 27, 2024 Visit Care Team Team Status: Active Member Role Status Dates Juvencio Lee DO Primary Care Provider Active Start: October 28, 2024 Tyra Eugene Attending Provider Active Start: 2024 Visit Care Team Team Status: Active Member Role Status Dates Juvencio Lee DO Primary Care Provider Active Start: October 29, 2024 Sena Izquierdo MD Attending Provider Active Sta rt: October 29, 2024 Visit Care Team Team Status: Inactive Member Role Status Dates Juvencio Lee DO Primary Care Provider Active Start: November 03, 2024 End: November 03, 2024 Norbert Porras MD Attending Provider Active Start : November 03, 2024 End: November 03, 2024 Visit Care Team Team Status: Inactive Member Role Status Dates Juvencio Lee DO Primary Care Provider Active Start: November 04, 2024 End: November 04, 2024 Juvencio Lee DO Attending Provider Active S tart: November 04, 2024 End: November 04, 2024 Patient Care Team Team Status: Inactive Member Role Status Dates Juvencio Lee DO Primary Care Provider Active Start: November 09, 2024 End: November 09, 2024 José Luis Marin MD Attending Provider Active Sta rt: November 09, 2024 End: November 09, 2024 Sena Izquierdo MD Referring Provider Active Sta rt: November 09, 2024 End: November 09, 2024 Chief Complaint and Reason for Visit Chief Complaint Admit Date 3 month follow up September 17, 2024 3:16 pm 3 mo VV F/U no testing September 24, 2024 3 :37pm Unknown October 23, 2024 9: 56pm Amb Documentation October 28, 2024 9: 25am CKD 4 November 03, 2024 2:41pm Hospital follow up/ FMLA Paperwork [facility] 2024 10:44am Ref: Dr. Sena Izquierdo - Cellulitis L. Low er Leg November 09, 2024 1:57pm Reason for Visit Admit Date Essential (primary) hypertension September 172024 3:16pm Venous insufficiency of left leg September 242024 3:37pm Anemia of renal disease November 03, 2:41pm CKD (chronic kidney disease) stage 4, GF R 15-29 ml/min November 03, 2024 2:41pm Hypertensive chronic kidney disease with stage 1 through stage 4 chronic ki November 03, 2024 2:41pm Proteinuria November 03, 2024 2:41pm Secondary hyperparathyroidism November 03, 2024 2:41pm Hypertensive chronic kidney disease with stage 1 through stage 4 chronic ki November 04, 2024 10:44am [facility] 10[facility] Allergies, Adverse Reactions, Alerts Allergen Type Severity Reaction Last Updated Verified Status ertapenem Allergy Unknown Hives November 04, 2024 10:55am Ye s Active Social History Smoking Status Status Start Date End Date Date of Observa tion Never smoked tobacco (finding) November 09, 2024 2:03pm Observation Status Observation Response Date of Response Legal Sex Male (finding) Sex Assigned At Male [birth year] Family History Relationship Condition Age at Onset Recorded Date/T lucas brother Diabetes mellitus Unknown Unknown father Diabetes mellitus Unknown Hypertension Unknown mother Unknown Hypertension Unknown Diabetes mellitus Unknown Malignant neoplasm of pancreas Unknown Problems Active Problems Medical Problem Onset Date Status Obstructive sleep apnea Unknown Active Swelling of left lower extremity Unknown Active Secondary hyperparathyroidism Unknown Ac tive Dyspnea on exertion Unknown Active CKD (chronic kidney disease) stage 4, GFR 15-29 ml/min Unknown Active Cellulitis Unknown Active Hypertensive chronic kidney disease with stage 1 through stage 4 chronic kidney disease, or unspecified chronic kidney disease Unknown Active Venous insufficiency of left leg Unknown Active Proteinuria Unknown Active Essential (primary) hypertension Unknown Active Anemia of renal disease Unknown Active Medications Medication Status Dose Units Route Directions Qty Days St art Date Stop Date End Date Instructions Adherence Lisinopril 40 mg tablet Discont inued 0 .ROUTE .[facility] June 03, 2023 11:43a m Octob er 2023 3:27p m TAKE 1 TABLET BY MOUTH EVERY DAY FOR 30 DAYS Hydrochloro thiazide 25 mg tablet Discont inued 25 MG PO Daily 2024 1:39pm June 18, 2024 7:57a m Metoprolol Succinate 200 mg tablet extended release 24 hr Discont inued 0 .ROUTE .[facility] 2024 3:24pm June 10, 2024 3:38p m TAKE 1 TABLET BY MOUTH DAILY Hydrochloro thiazide 25 mg tablet Discont inued 0 .ROUTE .[facility] June 18, 2024 7:57am September 17, 2024 3:48p m TAKE 1 TABLET BY MOUTH DAILY Hydrochloro thiazide 25 mg tablet Discont inued 0 .ROUTE .COMPLEX October 13, 2024 1:53pm [facility] 2024 2:50p m TAKE 1 TABLET BY MOUTH DAILY Amlodipine 10 mg tablet Active 10 MG PO Daily [facility] er 2023 1:00am Complies with drug therapy Clonidine Hcl 0.1 mg tablet Discont inued 0.2 MG PO Three times daily [facility] er 2023 1:00am July 08, 2024 3:16p m Clonidine Hcl 0.1 mg tablet Discont inued 0.1 MG PO Three times daily July 08, 2024 3:16pm [facility] 2024 2:50p m Ceftriaxone 1 gram recon soln Discont inued 1 [facility] 12:00a m [facility] 2024 2:01p m Hydralazine 50 mg tablet Active 50 MG PO Twice daily 2024 12:00a m Complies with drug therapy Rivaroxaban (Xarelto) 10 mg tablet Discont inued 20 MG PO Daily 2024 12:00a m [facility] 2024 10:53 am for 35 days Torsemide 40 mg tablet Discont inued 40 MG PO Every morning 2024 12:00a m [facility]2024 10:53 am Rivaroxaban (Xarelto) 10 mg tablet Active 10 MG PO Daily Nov 2024 10:52a m Complies with drug therapy Lisinopril 40 mg tablet Discont inued 1 TAB PO Daily May 07, 2023 1:00am May 07, 2023 5:45p m FreeTextSi tablet Orally Once a day; Note: Source Status: Taking; Refills: 5; Qty: 30 Tablet; Provider: Rosa Fish Amlodipine 10 mg tablet Discont inued 0.5 TAB PO Daily May 07, 2023 1:00am May 07, 2023 5:45p m FreeTextSi/2 tab Orally Once a day; Note: Source Status: Taking; Refills: 5; Provider: Rosa Fish Hydrochloro thiazide 25 mg tablet Discont inued 1 TAB PO Daily May 07, 2023 1:00am May 07, 2023 5:45p m FreeTextSi tablet in the morning Orally Once a day; Note: Source Status: Taking; Refills: 5; Provider: Rosa Fish Acetaminoph en (Tylenol Extra Strength) 500 mg tablet Discont inued 1 TAB PO Every 6 hours May 07, 2023 1:00am [facility]2024 2:51p m FreeTextSi tablet as needed Orally every 6 hrs; Note: Source Status: Taking; Provider: Rosa Henning ( ) Metoprolol Succinate 50 mg tablet extended release 24 hr Discont inued 1 TAB PO Daily May 07, 2023 1:00am May 07, 2023 5:45p m FreeTextSi tablet Orally Once a day; Note: Source Status: Refill; Refills: 1; Qty: 90 Tablet; Provider: Rosa Fish CPAP Active 0 .Route .MEDSUPPLY May 07, 2023 1:00am Medication Name: CPAP Machine; Note: Source Status: Taking; Provider: Rosa Henning ( ) Hydrochloro thiazide 25 mg tablet Discont inued 25 MG PO Daily May 07, 2023 5:44pm [facility] 2024 1:39p m Lisinopril 40 mg tablet Discont inued 40 MG PO Daily May 07, 2023 5:44pm June 03, 2023 11:43 am Metoprolol Succinate 50 mg tablet extended release 24 hr Discont inued 50 MG PO Daily May 07, 2023 5:44pm May 07, 2023 5:49p m Amlodipine 10 mg tablet Discont inued 5 MG PO Daily May 07, 2023 5:44pm Octob er 2023 3:17p m Metoprolol Succinate 100 mg tablet extended release 24 hr Discont inued 100 MG PO Daily 90 May 07, 2023 1:00am Octob er 2023 3:33p m Acetaminoph en (Tylenol Extra Strength) 500 mg tablet Active 500 MG PO Every 6 hours as needed 2024 2:51pm FreeTextSi tablet as needed Orally every 6 hrs; Note: Source Status: Taking; Provider: Rosa Henning ( ) Complies with drug therapy Lisinopril 40 mg tablet Discont inued 40 MG PO Daily Octobe r 2023 3:27pm Decem 2023 4:13p m Metoprolol Succinate 200 mg tablet extended release 24 hr Discont inued 200 MG PO Daily Octobe r 2023 3:33pm [facility] 2024 3:24p m Clonidine Hcl 0.2 mg tablet Discont inued 0.2 MG PO Three times daily 270 2024 1:00am June 10, 2024 3:37p m Carvedilol (Coreg) 25 mg tablet Active 25 MG PO Twice daily 60 July 08, 2024 12:00a m must administer with a meal/food Complies with drug therapy Metoprolol Succinate 200 mg tablet extended release 24 hr Discont inued 200 MG PO Daily June 10, 2024 3:37pm July 08, 2024 3:48p m Hydrochloro thiazide 25 mg tablet Discont inued 25 MG PO Daily September 17, 2024 3:48pm [facility] 2024 1:53p m Torsemide 20 mg tablet Active 40 MG PO Daily 2024 12:00a m Complies with drug therapy Immunizations Immunization Event Date Not Given Reason Dose Number Plating Operator Lot Number Vaccine Information Statement (VIS) Detail Administration Location COVID-19 mRNA, Comirnaty (GoYoDeo) July 24, 2020 COVID-19 mRNA, Comirnaty (GoYoDeo) August 14, 2020 Procedures Procedure Date Performed Status Urine Culture October 23, 2024 completed Relevant Diagnostic Tests and/or Laboratory Data Laboratory Results Test Collection Date/Time Result Date/Time Result Interpretation Reference Range Result Comment Performing Site Troponin I High Sensitiv ity October 23, 2024 12:40am October 23, 2024 12:40am 44.8 pg/mL 4.0-76.1 CUT-OFF POINTS HAVE BEEN ESTABLISHED BASED ON THE FOURTHUNIVE RSAL DEFINITION OF MYOCARDIAL INFARCTION. THE UPPERREFERE NCE LIMIT (URL) OF TROPONIN, DEFINED THE 99THPERCENT ILE OF cTnI DISTRIBUTIO N IN A REFERENCE POPULATION, HAS BEEN CONFIRMED THE DECISION THRESHOLD FOR MIDIAGNOSIS .99TH PERCENTILE = 76.2 PG/MLNOTE: HIGH-SENSIT IVITY TROPONIN ASSAY IS NOT INTENDED TO BEUSED IN ISOLATION BUT SHOULD BE INTERPRETED IN CONJUNCTION WITH OTHER DIAGNOSTIC AND CLINICAL INFORMATION . Anion Gap October 23, 2024 12:40am October 23, 2024 12:40am 13.1 Lactic Acid Level October 23, 2024 12:40am October 23, 2024 12:40am 1.1 mmol/L 0.4-2.0 D-Dimer Quantita tive (PE/DVT) October 23, 2024 12:40am October 23, 2024 12:40am 1.39 mg/L FEU Above upper panic limits <=0.59 RESULTS CALLED TO WALTER Martinez (Baker), RN @BY Jad Keane MLT at [id number] es in D-Dimer concentrati on observed withthrombo embolic events can be variable due to localizatio n,size, and age of the thrombus. Therefore, a thromboembo licevent cannot be diagnosed with certainty on the basis of thereferenc e range. D-Dimers may also be elevated for a varietyof disorders including advanced age, , coronarydis ease, cancer, liver disease, infection, inflammatio n,hematoma, DIC, trauma, post-surger y, diabetes, thrombolyti cor anticoagula nt therapy, stress, and generalized hospitaliza tion. Activate d Partial Thrombop last Time October 23, 2024 12:40am October 23, 2024 12:40am 35.6 sec 22.3-36.2 Prothrom b Time Internat ional Ratio October 23, 2024 12:40am October 23, 2024 12:40am 1.07 DESIRED INR:2.0-3.0 CONDITIONS NOT LISTED BELOW2.5-3. 5 FOR PROSTHETIC HEART VALVE REPLACEMENT 2.5-3.5 RECURRENT THROMBOSIS Basophil s # (Auto) October 23, 2024 12:40am October 23, 2024 12:40am 0.1 10 3/uL 0.0-0.1 Urine Culture Reflexed October 23, 2024 9:56pm YES-MC Anion Gap October 24, 2024 7:06am October 24, 2024 7:06am 14.7 Basophil s # (Auto) October 24, 2024 7:06am October 24, 2024 7:06am 0.1 10 3/uL 0.0-0.1 Anion Gap October 25, 2024 6:22am October 25, 2024 6:22am 16.0 C-Reacti ve Protein, Quantita tive October 25, 2024 6:22am October 25, 2024 6:22am 30.92 mg/dL Above high normal <=0.50 Hematocr it October 25, 2024 6:22am October 25, 2024 6:22am 31.3 % Below low normal 42.0-54.0 Anion Gap October 26, 2024 5:49am October 26, 2024 5:49am 15.9 Anion Gap October 27, 2024 5:49am October 27, 2024 5:49am 15.5 Anion Gap October 29, 2024 2:57pm October 29, 2024 2:57pm 11.9 Basophil s # (Auto) October 29, 2024 2:57pm October 29, 2024 2:57pm 0.1 10 3/uL 0.0-0.1 Albumin/ Globulin Ratio October 23, 2024 12:40am October 23, 2024 12:40am 0.4 Prothrom bin Time October 23, 2024 12:40am October 23, 2024 12:40am 11.3 sec 9.0-11.6 Basophil s (%) (Auto) October 23, 2024 12:40am October 23, 2024 12:40am 0.2 % 0.2-2.0 Urine Other Casts October 23, 2024 9:56pm NONE SEEN #/LPF NONE SEEN BUN/Crea tinine Ratio October 24, 2024 7:06am October 24, 2024 7:06am 13.3 Basophil s (%) (Auto) October 24, 2024 7:06am October 24, 2024 7:06am 0.4 % 0.2-2.0 BUN/Crea tinine Ratio October 25, 2024 6:22am October 25, 2024 6:22am 13.2 Hemoglob in October 25, 2024 6:22am October 25, 2024 6:22am 10.4 g/dL Below low normal 14.0-18.0 BUN/Crea tinine Ratio October 26, 2024 5:49am October 26, 2024 5:49am 13.2 BUN/Crea tinine Ratio October 27, 2024 5:49am October 27, 2024 5:49am 13.6 Albumin/ Globulin Ratio October 29, 2024 2:57pm October 29, 2024 2:57pm 0.3 Basophil s (%) (Auto) October 29, 2024 2:57pm October 29, 2024 2:57pm 0.5 % 0.2-2.0 Albumin October 23, 2024 12:40am October 23, 2024 12:40am 2.4 g/dL Below low normal 3.4-5.0 Eosinoph ils # (Auto) October 23, 2024 12:40am October 23, 2024 12:40am 0.2 10 3/uL 0.0-0.7 Urine Other Crystals October 23, 2024 9:56pm Seen #/HPF Abnormal (applies to non-numeric results) None Seen Blood Urea Nitrogen October 24, 2024 7:06am October 24, 2024 7:06am 45.0 mg/dL Above high normal 7.0-18.0 Eosinoph ils # (Auto) October 24, 2024 7:06am October 24, 2024 7:06am 0.1 10 3/uL 0.0-0.7 Blood Urea Nitrogen October 25, 2024 6:22am October 25, 2024 6:22am 42.0 mg/dL Above high normal 7.0-18.0 Mean Corpuscu lar Hemoglob in October 25, 2024 6:22am October 25, 2024 6:22am 28.7 pg 25.9-34.0 Blood Urea Nitrogen October 26, 2024 5:49am October 26, 2024 5:49am 40.0 mg/dL Above high normal 7.0-18.0 Blood Urea Nitrogen October 27, 2024 5:49am October 27, 2024 5:49am 39.0 mg/dL Above high normal 7.0-18.0 Albumin October 29, 2024 2:57pm October 29, 2024 2:57pm 1.8 g/dL Below low normal 3.4-5.0 Eosinoph ils # (Auto) October 29, 2024 2:57pm October 29, 2024 2:57pm 0.7 10 3/uL 0.0-0.7 Alkaline Phosphat ase October 23, 2024 12:40am October 23, 2024 12:40am 89 U/L 46-116 Eosinoph ils (%) (Auto) October 23, 2024 12:40am October 23, 2024 12:40am 0.8 % Below low normal 0.9-7.0 Urine Amorphou s Sediment October 23, 2024 9:56pm FEW Calcium Level October 24, 2024 7:06am October 24, 2024 7:06am 8.7 mg/dL 8.5-10.1 Eosinoph ils (%) (Auto) October 24, 2024 7:06am October 24, 2024 7:06am 0.4 % Below low normal 0.9-7.0 Calcium Level October 25, 2024 6:22am October 25, 2024 6:22am 8.6 mg/dL 8.5-10.1 Mean Corpuscu lar Hemoglob in Concent October 25, 2024 6:22am October 25, 2024 6:22am 33.2 g/dL 29.9-35.2 Calcium Level October 26, 2024 5:49am October 26, 2024 5:49am 8.6 mg/dL 8.5-10.1 Calcium Level October 27, 2024 5:49am October 27, 2024 5:49am 9.0 mg/dL 8.5-10.1 Alkaline Phosphat ase October 29, 2024 2:57pm October 29, 2024 2:57pm 128 U/L Above high normal 46-116 Eosinoph ils (%) (Auto) October 29, 2024 2:57pm October 29, 2024 2:57pm 3.6 % 0.9-7.0 Alanine Aminotra nsferase (ALT/SGP T) October 23, 2024 12:40am October 23, 2024 12:40am 27 U/L 16-63 Hematocr it October 23, 2024 12:40am October 23, 2024 12:40am 35.5 % Below low normal 42.0-54.0 Urine Bacteria October 23, 2024 9:56pm TRACE #/HPF Abnormal (applies to non-numeric results) NONE SEEN Chloride Level October 24, 2024 7:06am October 24, 2024 7:06am 100 mmol/L 98-107 Hematocr it October 24, 2024 7:06am October 24, 2024 7:06am 34.5 % Below low normal 42.0-54.0 Chloride Level October 25, 2024 6:22am October 25, 2024 6:22am 100 mmol/L 98-107 Mean Corpuscu lar Volume October 25, 2024 6:22am October 25, 2024 6:22am 86.2 fL 80.0-94.0 Chloride Level October 26, 2024 5:49am October 26, 2024 5:49am 100 mmol/L 98-107 Chloride Level October 27, 2024 5:49am October 27, 2024 5:49am 101 mmol/L 98-107 Alanine Aminotra nsferase (ALT/SGP T) October 29, 2024 2:57pm October 29, 2024 2:57pm 26 U/L 16-63 Hematocr it October 29, 2024 2:57pm October 29, 2024 2:57pm 33.6 % Below low normal 42.0-54.0 Aspartat e Amino Transf (AST/SGO T) October 23, 2024 12:40am October 23, 2024 12:40am 24 U/L 15-37 Hemoglob in October 23, 2024 12:40am October 23, 2024 12:40am 12.0 g/dL Below low normal 14.0-18.0 Urine Bilirubi n October 23, 2024 9:56pm NEGATIVE NEGATIVE Carbon Dioxide Level October 24, 2024 7:06am October 24, 2024 7:06am 23.7 mmol/L 21.0-32.0 Hemoglob in October 24, 2024 7:06am October 24, 2024 7:06am 11.3 g/dL Below low normal 14.0-18.0 Carbon Dioxide Level October 25, 2024 6:22am October 25, 2024 6:22am 22.3 mmol/L 21.0-32.0 Mean Platelet Volume October 25, 2024 6:22am October 25, 2024 6:22am 10.5 fL 9.5-13.5 Carbon Dioxide Level October 26, 2024 5:49am October 26, 2024 5:49am 23.4 mmol/L 21.0-32.0 Carbon Dioxide Level October 27, 2024 5:49am October 27, 2024 5:49am 24.8 mmol/L 21.0-32.0 Aspartat e Amino Transf (AST/SGO T) October 29, 2024 2:57pm October 29, 2024 2:57pm 23 U/L 15-37 Hemoglob in October 29, 2024 2:57pm October 29, 2024 2:57pm 10.8 g/dL Below low normal 14.0-18.0 BUN/Crea tinine Ratio October 23, 2024 12:40am October 23, 2024 12:40am 12.1 Immature Granuloc yte # (Auto) October 23, 2024 12:40am October 23, 2024 12:40am 0.10 10 3/uL Above high normal 0.00-0.03 Urine Occult Blood October 23, 2024 9:56pm LARGE Abnormal (applies to non-numeric results) NEGATIVE Creatini ne October 24, 2024 7:06am October 24, 2024 7:06am 3.38 mg/dL Above high normal 0.70-1.30 Immature Granuloc yte # (Auto) October 24, 2024 7:06am October 24, 2024 7:06am 0.10 10 3/uL Above high normal 0.00-0.03 Creatini ne October 25, 2024 6:22am October 25, 2024 6:22am 3.17 mg/dL Above high normal 0.70-1.30 Platelet Count October 25, 2024 6:22am October 25, 2024 6:22am 279 10 3/uL 150-450 Creatini ne October 26, 2024 5:49am October 26, 2024 5:49am 3.04 mg/dL Above high normal 0.70-1.30 Creatini ne October 27, 2024 5:49am October 27, 2024 5:49am 2.86 mg/dL Above high normal 0.70-1.30 BUN/Crea tinine Ratio October 29, 2024 2:57pm October 29, 2024 2:57pm 12.3 Immature Granuloc yte # (Auto) October 29, 2024 2:57pm October 29, 2024 2:57pm 0.31 10 3/uL Above high normal 0.00-0.03 Blood Urea Nitrogen October 23, 2024 12:40am October 23, 2024 12:40am 46.0 mg/dL Above high normal 7.0-18.0 Immature Granuloc yte % (Auto) October 23, 2024 12:40am October 23, 2024 12:40am 0.5 % 0.0-0.5 Urine Appearan ce October 23, 2024 9:56pm SL CLOUDY CLEAR Estimate d GFR ( ) October 24, 2024 7:06am October 24, 2024 7:06am 23 Below low normal >=60 mL/min/1.7 3m 2 Immature Granuloc yte % (Auto) October 24, 2024 7:06am October 24, 2024 7:06am 0.6 % Above high normal 0.0-0.5 Estimate d GFR ( ) October 25, 2024 6:22am October 25, 2024 6:22am 25 Below low normal >=60 mL/min/1.7 3m 2 Red Blood Count October 25, 2024 6:22am October 25, 2024 6:22am 3.63 10 6/uL Below low normal 4.70-6.10 Estimate d GFR ( ) October 26, 2024 5:49am October 26, 2024 5:49am 27 Below low normal >=60 mL/min/1.7 3m 2 Estimate d GFR ( ) October 27, 2024 5:49am October 27, 2024 5:49am 28 Below low normal >=60 mL/min/1.7 3m 2 Blood Urea Nitrogen October 29, 2024 2:57pm October 29, 2024 2:57pm 41.0 mg/dL Above high normal 7.0-18.0 Immature Granuloc yte % (Auto) October 29, 2024 2:57pm October 29, 2024 2:57pm 1.7 % Above high normal 0.0-0.5 Calcium Level October 23, 2024 12:40am October 23, 2024 12:40am 8.5 mg/dL 8.5-10.1 Lymphocy bela # (Auto) October 23, 2024 12:40am October 23, 2024 12:40am 1.6 10 3/uL 1.2-3.8 Urine Color October 23, 2024 9:56pm LT. YELLOW YELLOW Estimate d GFR (Non-Afr ican [place] October 24, 2024 7:06am October 24, 2024 7:06am 19 Below low normal >=60 mL/min/1.7 3m 2 Lymphocy bela # (Auto) October 24, 2024 7:06am October 24, 2024 7:06am 1.6 10 3/uL 1.2-3.8 Estimate d GFR (Non-Afr ican [place] October 25, 2024 6:22am October 25, 2024 6:22am 21 Below low normal >=60 mL/min/1.7 3m 2 Red Cell Distribu tion Width October 25, 2024 6:22am October 25, 2024 6:22am 13.7 % 11.0-15.0 Estimate d GFR (Non-Afr ican [place] October 26, 2024 5:49am October 26, 2024 5:49am 22 Below low normal >=60 mL/min/1.7 3m 2 Estimate d GFR (Non-Afr ican [place] October 27, 2024 5:49am October 27, 2024 5:49am 23 Below low normal >=60 mL/min/1.7 3m 2 Calcium Level October 29, 2024 2:57pm October 29, 2024 2:57pm 8.4 mg/dL Below low normal 8.5-10.1 Lymphocy bela # (Auto) October 29, 2024 2:57pm October 29, 2024 2:57pm 1.7 10 3/uL 1.2-3.8 Chloride Level October 23, 2024 12:40am October 23, 2024 12:40am 97 mmol/L Below low normal 98-107 Lymphocy bela (%) (Auto) October 23, 2024 12:40am October 23, 2024 12:40am 7.6 % Below low normal 20.5-60.0 Urine Glucose (UA) October 23, 2024 9:56pm NEGATIVE mg/dL NEGATIVE Glucose Level October 24, 2024 7:06am October 24, 2024 7:06am 106 mg/dL 74-106 Lymphocy bela (%) (Auto) October 24, 2024 7:06am October 24, 2024 7:06am 9.5 % Below low normal 20.5-60.0 Glucose Level October 25, 2024 6:22am October 25, 2024 6:22am 111 mg/dL Above high normal 74-106 Correcte d White Blood Count October 25, 2024 6:22am October 25, 2024 6:22am 15.7 10 3/uL Above high normal 4.0-11.0 Glucose Level October 26, 2024 5:49am October 26, 2024 5:49am 123 mg/dL Above high normal 74-106 Glucose Level October 27, 2024 5:49am October 27, 2024 5:49am 104 mg/dL 74-106 Chloride Level October 29, 2024 2:57pm October 29, 2024 2:57pm 102 mmol/L 98-107 Lymphocy bela (%) (Auto) October 29, 2024 2:57pm October 29, 2024 2:57pm 9.5 % Below low normal 20.5-60.0 Carbon Dioxide Level October 23, 2024 12:40am October 23, 2024 12:40am 25.1 mmol/L 21.0-32.0 Mean Corpuscu lar Hemoglob in October 23, 2024 12:40am October 23, 2024 12:40am 29.3 pg 25.9-34.0 Urine Ketones October 23, 2024 9:56pm NEGATIVE mg/dL NEGATIVE Potassiu m Level October 24, 2024 7:06am October 24, 2024 7:06am 3.4 mmol/L Below low normal 3.5-5.1 Mean Corpuscu lar Hemoglob in October 24, 2024 7:06am October 24, 2024 7:06am 28.6 pg 25.9-34.0 Potassiu m Level October 25, 2024 6:22am October 25, 2024 6:22am 3.3 mmol/L Below low normal 3.5-5.1 Potassiu m Level October 26, 2024 5:49am October 26, 2024 5:49am 3.3 mmol/L Below low normal 3.5-5.1 Potassiu m Level October 27, 2024 5:49am October 27, 2024 5:49am 3.3 mmol/L Below low normal 3.5-5.1 Carbon Dioxide Level October 29, 2024 2:57pm October 29, 2024 2:57pm 23.9 mmol/L 21.0-32.0 Mean Corpuscu lar Hemoglob in October 29, 2024 2:57pm October 29, 2024 2:57pm 28.3 pg 25.9-34.0 Creatini ne October 23, 2024 12:40am October 23, 2024 12:40am 3.79 mg/dL Above high normal 0.70-1.30 Mean Corpuscu lar Hemoglob in [facility] October 23, 2024 12:40am October 23, 2024 12:40am 33.8 g/dL 29.9-35.2 Urine Leukocyt e Esterase October 23, 2024 9:56pm NEGATIVE NEGATIVE Sodium Level October 24, 2024 7:06am October 24, 2024 7:06am 135 mmol/L Below low normal 136-145 Mean Corpuscu lar Hemoglob in [facility] October 24, 2024 7:06am October 24, 2024 7:06am 32.8 g/dL 29.9-35.2 Sodium Level October 25, 2024 6:22am October 25, 2024 6:22am 135 mmol/L Below low normal 136-145 Sodium Level October 26, 2024 5:49am October 26, 2024 5:49am 136 mmol/L 136-145 Sodium Level October 27, 2024 5:49am October 27, 2024 5:49am 138 mmol/L 136-145 Creatini ne October 29, 2024 2:57pm October 29, 2024 2:57pm 3.34 mg/dL Above high normal 0.70-1.30 Mean Corpuscu lar Hemoglob in [facility] October 29, 2024 2:57pm October 29, 2024 2:57pm 32.1 g/dL 29.9-35.2 Estimate d GFR ( ) October 23, 2024 12:40am October 23, 2024 12:40am 21 Below low normal >=60 mL/min/1.7 3m 2 Mean Corpuscu lar Volume October 23, 2024 12:40am October 23, 2024 12:40am 86.6 fL 80.0-94.0 Urine Mucus October 23, 2024 9:56pm NONE SEEN NONE SEEN Mean Corpuscu lar Volume October 24, 2024 7:06am October 24, 2024 7:06am 87.3 fL 80.0-94.0 Estimate d GFR ( ) October 29, 2024 2:57pm October 29, 2024 2:57pm 24 Below low normal >=60 mL/min/1.7 3m 2 Mean Corpuscu lar Volume October 29, 2024 2:57pm October 29, 2024 2:57pm 88.0 fL 80.0-94.0 Estimate d GFR (Non-Afr ican [place] October 23, 2024 12:40am October 23, 2024 12:40am 17 Below low normal >=60 mL/min/1.7 3m 2 Monocyte s # (Auto) October 23, 2024 12:40am October 23, 2024 12:40am 0.7 10 3/uL 0.3-0.8 Urine Nitrite October 23, 2024 9:56pm NEGATIVE NEGATIVE Monocyte s # (Auto) October 24, 2024 7:06am October 24, 2024 7:06am 0.8 10 3/uL 0.3-0.8 Estimate d GFR (Non-Afr ican [place] October 29, 2024 2:57pm October 29, 2024 2:57pm 20 Below low normal >=60 mL/min/1.7 3m 2 Monocyte s # (Auto) October 29, 2024 2:57pm October 29, 2024 2:57pm 1.0 10 3/uL Above high normal 0.3-0.8 Globulin October 23, 2024 12:40am October 23, 2024 12:40am 5.4 g/dL Monocyte s (%) (Auto) October 23, 2024 12:40am October 23, 2024 12:40am 3.3 % 1.7-12.0 Urine pH October 23, 2024 9:56pm 5.5 5.0-9.0 Monocyte s (%) (Auto) October 24, 2024 7:06am October 24, 2024 7:06am 4.9 % 1.7-12.0 Globulin October 29, 2024 2:57pm October 29, 2024 2:57pm 5.9 g/dL Monocyte s (%) (Auto) October 29, 2024 2:57pm October 29, 2024 2:57pm 5.2 % 1.7-12.0 Glucose Level October 23, 2024 12:40am October 23, 2024 12:40am 119 mg/dL Above high normal 74-106 Mean Platelet Volume October 23, 2024 12:40am October 23, 2024 12:40am 10.3 fL 9.5-13.5 Urine Protein October 23, 2024 9:56pm 100 mg/dL Abnormal (applies to non-numeric results) NEG/TRACE Mean Platelet Volume October 24, 2024 7:06am October 24, 2024 7:06am 10.8 fL 9.5-13.5 Glucose Level October 29, 2024 2:57pm October 29, 2024 2:57pm 112 mg/dL Above high normal 74-106 Mean Platelet Volume October 29, 2024 2:57pm October 29, 2024 2:57pm 9.9 fL 9.5-13.5 Potassiu m Level October 23, 2024 12:40am October 23, 2024 12:40am 3.2 mmol/L Below low normal 3.5-5.1 Neutroph ils # (Auto) October 23, 2024 12:40am October 23, 2024 12:40am 18.9 10 3/uL Above high normal 1.4-6.5 Urine RBC October 23, 2024 9:56pm 5-10 #/HPF Abnormal (applies to non-numeric results) 0-2 Neutroph ils # (Auto) October 24, 2024 7:06am October 24, 2024 7:06am 14.1 10 3/uL Above high normal 1.4-6.5 [place] m Level October 29, 2024 2:57pm October 29, 2024 2:57pm 3.8 mmol/L 3.5-5.1 Neutroph ils # (Auto) October 29, 2024 2:57pm October 29, 2024 2:57pm 14.6 10 3/uL Above high normal 1.4-6.5 Sodium Level October 23, 2024 12:40am October 23, 2024 12:40am 132 mmol/L Below low normal 136-145 Neutroph ils (%) (Auto) October 23, 2024 12:40am October 23, 2024 12:40am 87.6 % Above high normal 43.0-75.0 Urine Specific [place] October 23, 2024 9:56pm 1.025 1.005-1.02 5 Neutroph ils (%) (Auto) October 24, 2024 7:06am October 24, 2024 7:06am 84.2 % Above high normal 43.0-75.0 Sodium Level October 29, 2024 2:57pm October 29, 2024 2:57pm 134 mmol/L Below low normal 136-145 Neutroph ils (%) (Auto) October 29, 2024 2:57pm October 29, 2024 2:57pm 79.5 % Above high normal 43.0-75.0 Total Bilirubi n October 23, 2024 12:40am October 23, 2024 12:40am 0.4 mg/dL 0.2-1.0 Platelet Count October 23, 2024 12:40am October 23, 2024 12:40am 257 10 3/uL 150-450 Urine Squamous Epitheli al Cells October 23, 2024 9:56pm FEW #/LPF Abnormal (applies to non-numeric results) NONE/RARE Platelet Count October 24, 2024 7:06am October 24, 2024 7:06am 257 10 3/uL 150-450 Total Bilirubi n October 29, 2024 2:57pm October 29, 2024 2:57pm 0.4 mg/dL 0.2-1.0 Platelet Count October 29, 2024 2:57pm October 29, 2024 2:57pm 547 10 3/uL Above high normal 150-450 Total Protein October 23, 2024 12:40am October 23, 2024 12:40am 7.8 g/dL 6.4-8.2 Red Blood Count October 23, 2024 12:40am October 23, 2024 12:40am 4.10 10 6/uL Below low normal 4.70-6.10 Urine Urobilin ogen October 23, 2024 9:56pm 1.0 EU/dL 0.2-1.0 Red Blood Count October 24, 2024 7:06am October 24, 2024 7:06am 3.95 10 6/uL Below low normal 4.70-6.10 Total Protein October 29, 2024 2:57pm October 29, 2024 2:57pm 7.7 g/dL 6.4-8.2 Red Blood Count October 29, 2024 2:57pm October 29, 2024 2:57pm 3.82 10 6/uL Below low normal 4.70-6.10 Red Cell Distribu tion Width October 23, 2024 12:40am October 23, 2024 12:40am 13.6 % 11.0-15.0 Urine WBC October 23, 2024 9:56pm 2-5 #/HPF Abnormal (applies to non-numeric results) NONE SEEN Red Cell Distribu tion Width October 24, 2024 7:06am October 24, 2024 7:06am 13.5 % 11.0-15.0 Red Cell Distribu tion Width October 29, 2024 2:57pm October 29, 2024 2:57pm 14.1 % 11.0-15.0 Correcte d White Blood Count October 23, 2024 12:40am October 23, 2024 12:40am 21.5 10 3/uL Above high normal 4.0-11.0 Correcte d White Blood Count October 24, 2024 7:06am October 24, 2024 7:06am 16.7 10 3/uL Above high normal 4.0-11.0 Correcte d White Blood Count October 29, 2024 2:57pm October 29, 2024 2:57pm 18.4 10 3/uL Above high normal 4.0-11.0 Microbiology Results Procedure Source Result Collection Date/Time Result Date/Time Result Comment Performing Site Urine Culture Urine, Not Otherwise Specified No Growth 2 Days October 23, 2024 9:56pm October 26, 2024 12:17pm [facility] [id number] [address] [place] [address] Vital Signs Vital Reading Result Reference Range Collection Date/Time Height 70 [in_i] September 17, 2024 3:37pm Weight 174.34 kg September 17, 2024 3:37pm Body Temperature 99.0 [degF] 97.6-99.0 September 17, 2024 3:37pm Heart Rate 74 /min 60-100 September 17, 2024 3:37pm Respiratory rate 18 /min 12-September 17, 2024 3:37pm Oxygen saturation by Pulse oximetry 96 % 95-100 September 17, 2024 3:37 pm BP Systolic 152 mm[Hg] 100-140 September 17, 2024 3:37pm BP Diastolic 100 mm[Hg] 60-100 September 17, 2024 3:37pm BMI (Body Mass Index) 55.1 kg/m2 September 012024 3:37pm Body Temperature 97.5 [degF] 97.6-99.0 September 24, 2024 3:38pm Heart Rate 78 /min 60-100 September 24, 2024 3:38pm Oxygen saturation by Pulse oximetry 97 % 95-100 September 24, 2024 3:38 pm BP Systolic 190 mm[Hg] 100-140 September 24, 2024 3:38pm BP Diastolic 98 mm[Hg] 60-100 September 24, 2024 3:38pm Height 70 [in_i] November 03, 2024 2:42pm Weight 169.41 kg November 03, 2024 2:42pm Body Temperature 98.2 [degF] 97.6-99.0 November 032024 2:42pm Heart Rate 68 /min 60-100 November 03, 2024 2:42pm Respiratory rate 20 /min -November 032024 2:42pm Oxygen saturation by Pulse oximetry 98 % 95-100 November 03, 2024 2:42pm BP Systolic 150 mm[Hg] 100-140 November 03, 2024 2:42pm BP Diastolic 80 mm[Hg] 60-100 November 03, 2024 2:42pm BMI (Body Mass Index) 53.6 kg/m2 2024 2:42pm Height 70 [in_i] November 09, 2024 2:03pm Weight 169.64 kg November 09, 2024 2:03pm Body Temperature 98.0 [degF] 97.6-99.0 November 092024 2:03pm Heart Rate 77 /min 60-100 November 09, 2024 2:03pm BP Systolic 139 mm[Hg] 100-140 November 09, 2024 2:03pm BP Diastolic 79 mm[Hg] 60-100 November 09, 2024 2:03pm BMI (Body Mass Index) 53.6 kg/m2 2024 2:03pm Advance Directives Advance Directive Response Recorded Date/ Time Advance Directives No November 10:21am Insurance Providers Guarantor Suresh Vallejo Address [address] [address] Contact Info. Home Phone: Payer Policy Id Subscriber's Name Subscriber Id Effectiv e Date Expiration Date Kevin QUIROGA [id number] Suresh Vallejo [id number] Encounters Encounter Location(s) Arrival/Admit Date Discharge/Depart Date Provider(s) Departed Physician/Prov ider Office Visit -[facility] [place] September 17, 2024 3:16pm September 17, 2024 3:55pm Abe Villegas DO Departed Physician/Prov ider Office Visit -[facility] [place] September 24, 2024 3:37pm September 24, 2024 3:48pm Rasheed Bhakta MD Non-patient / Non-visit -[facility] October 23, 2024 12:40am Randi Garcia DO Departed Referred -[facility] October 23, 2024 9:56pm October 23, 2024 9:57pm María Santana MD Non-patient / Non-visit -[facility] October 24, 2024 7:06am María Santana MD Non-patient / Non-visit -[facility] October 25, 2024 6:22am María Santana MD Non-patient / Non-visit -[facility] October 26, 2024 5:49am María Santana MD Non-patient / Non-visit -[facility] October 27, 2024 5:49am María Santana MD Non-patient / Non-visit -[facility] Primary Care October 28, 2024 9:25am Tyra Eugene Non-patient / Non-visit -[facility] October 29, 2024 2:57pm Sena Izquierdo MD Departed Physician/Prov ider Office Visit -[facility] November 03, 2024 2:41pm November 03, 2024 3:10pm Norbert Porras MD Departed Physician/Prov ider Office Visit -[facility] November 04, 2024 10:44am November 04, 2024 11:30am Abe Villegas DO Departed Physician/Prov ider Office Visit -[facility] Infect Dis November 09, 2024 1:57pm November 09, 2024 2:21pm José Luis Marin MD Recent Diagnosis Onset Date Admit Date Essential (primary) hypertension Unknown September 17, 2024 3:16pm Venous insufficiency of left leg Unknown September 24, 2024 3:37pm Anemia of renal disease Unknown Novembe r 2024 2:41pm CKD (chronic kidney disease) stage 4, GFR 15-29 ml/min Unknown November 03, 2024 2:41pm Hypertensive chronic kidney disease with stage 1 through stage 4 chronic ki Unknown November 03, 2024 2:41p m Proteinuria Unknown November 03, 2:41pm Secondary hyperparathyroidism Unknown Se pt2024 2:41pm Hypertensive chronic kidney disease with stage 1 through stage 4 chronic ki Unknown November 04, 2024 10:44 am Swelling of left lower extremity Unknown November 04, 2024 10:44am Assessments Diagnosis Onset Date Resolution Status Admit Date Essential (primary) hypertension acu te September 17, 2024 3:16pm Venous insufficiency of left leg acu te September 24, 2024 3:37pm Anemia of renal disease acute S eptember 2024 2:41pm CKD (chronic kidney disease) stage 4, GFR 15-29 ml/min acute Sept2024 2:41pm Hypertensive chronic kidney disease with stage 1 through stage 4 chronic ki acute November 2:41pm Proteinuria acute November 2:41pm Secondary hyperparathyroidism acute November 03, 2024 2:41pm Hypertensive chronic kidney disease with stage 1 through stage 4 chronic ki acute November 10:44am Swelling of left lower extremity acu te November 04, 2024 10:44am Plan of Treatment Author Norbert Porras [facility] Authored November 04, 2024 11:46am It was a pleasure to see Mr. Vallejo in our office for an evaluation and management of the CKD. As you know he has a longstanding CKD likely due to the hypertension with most recent serum creatinine of 3.2 mg/dL. His renal ultrasound showed a right renal cyst with no evidence of kidney stone or hydronephrosis. I have advised him to avoid NSAIDs or any other jcoa-lvu-vamlcog nephrotoxic medications. I discussed with the importance of good blood pressure control and weight loss with diet modification to slow down the progression of his CKD. He has anemia due to the unclear etiology. Differential diagnoses are CKD, iron deficiency or paraproteinemia. I have ordered a workup to rule out these differential diagnosis. He has a proteinuria with hypoalbuminemia may be due to the hypertensive nephrosclerosis. Other differential diagnosis is paraproteinemia. His blood pressure is high. Will continue current dose of the antihypertensive medications. His serum calcium is within normal limit. Will check PTH and vitamin D. Author [facility] Authored September 20, 2024 6:20 pm Patient is well aware that asif scales needs to start monitoring his diet more carefully, as even a modest amount of weight loss would help his blood pressure tremendously. He voices agreement and understanding. We will recheck again in 3 months. He knows he needs to take his medication consistently every day. Author Rasheed Bhakta [facility] Authored September 24, 2024 3:51 pm This patient's BMI is about 55. I am not going to have much influence on his leg swelling without his help in cooperation. He needs to lose weight. I have minimal effect on his overall outcome. This is meant to be a team effort. I reinforced this point today. I will see him as needed. I did offer to send him to a weight loss specialist. Author [facility] Authored November 05, 2024 12:49pm Quite lengthy discussion wit h patient today regarding his hospital stay as well as upcoming visits. He is scheduled to see infectious disease at some point moving forward. This appointment still needs to be scheduled. Continue to monitor leg carefully. Certainly any worsening of symptoms would necessitate return to the ER. Continue to keep leg elevated and I cannot offer use of hand lotion (which he desires for dry skin) until he is seen by infectious disease. Continue to follow-up with cardiology as well as nephrology. No other change today. [facility] paperwork completed, specifically in regard to him being off work until the -this will be after he sees cardiology but also infectious disease. We may need to extend this potentially. Future Tests Future scheduled test information is unavailable Pending Tests Test Name Ordered Date Scheduled Date Immunofixation, (SARAH), Urine November 03, 2024 3:03pm 6 Weeks Renal Function Panel November 03, 2024 3:03pm 6 Weeks Future Visits Future appointment information is unavailable Referrals to Other Providers Referral information is unavailable Future Procedures Procedure Name Ordered Date Scheduled Date Dipstick and Microscopic November 03, 2024 3:0 3pm 6 Weeks Hemogram CBC Without Diff November 03, 2024 3: 03pm 6 Weeks Iron and TIBC Profile November 03, 2024 3:03pm 6 Weeks Ferritin November 03, 2024 3:03pm 6 Wee ks Immunofixation,Serum November 03, 2024 3:03pm 6 Weeks Free K+L LT Chains, Qn, S November 03, 2024 3: 03pm 6 Weeks Magnesium November 03, 2024 3:03pm 6 [place] ks Protein Creat Ratio Ur Random November 03 3:03pm 6 Weeks Parathyroid Hormone Intact November 03, 2024 3 :03pm 6 Weeks Prot Electrophoresis w/Interp November 03 3:03pm 6 Weeks Protein Electrophoresis, Serum November 03 3:03pm 6 Weeks Uric Acid November 03, 2024 3:03pm 6 [place] ks Vitamin D 25 Hydroxy Total November 03, 2024 3 :03pm 6 Weeks Future Medications Future medication information is unavailable Patient Instructions Patient instructions are unavailable
--- OUTSIDE RECORDS SUMMARY | 2024-11-10 11:26 | XMS_ITS | Clinical Summary ---
Author Organization [facility] Address [address] [place] [address] Care Team Providers Care Travel Rn Or Name Role Phone Unavailable Primary Care Provider [...] Plan of Treatment Not on file Insurance [facility]
--- OUTSIDE RECORDS SUMMARY | 2024-11-10 11:26 | XMS_ITS | Encounter Summary ---
Author Organization [facility] Address [address] [place] [address] Phone Care Team Providers Care Recreation Center Director Name Role Phone Unavailable Primary Care Provider Unavailabl e Encounter Details Date Type Department Care Team (Late st Contact Info) Description 08/10/2024 Scanned Document [facility] [address] [place] [address] Scanning, Generic Provider Social History [...]
--- OUTSIDE RECORDS SUMMARY | 2024-11-10 11:26 | XMS_ITS | Clinical Summary ---
Author Organization [facility] Address [address] [place] [address] Phone Care Team Providers Care Buzzle Buffer Name Role Phone Unavailable Primary Care Provider Unavailabl e Encounters Date Type Department Care Team Description 08/10/2024 Scanned Document [facility] [address] [place] [address] Scanning, Generic Provider from Last [...] COVID-19 Vaccine (1 - 2023-2 5 season) 2024 Influenza Vaccine (#1) 2024 HIB Vaccines Aged [...] al Result from Last 3 Months Insurance [facility]
--- OUTSIDE RECORDS SUMMARY | 2024-11-10 11:37 | XMS_ITS | CCD ---
Author Organization [facility] CliniSypr Care Team Providers Care Fire Tower Keeper Name Role Phone ROSA, DR JUVENCIO Fish [...] M. Primary Care Provider Rosa DO, Juvencio M. Referring Provider [phone] Daniel Gloria MD Attending Provider Rosa DO, Juvencio M. Attending Provider Edvin Hastings MD Attending Provider Rosa DO, Juvencio M. Primary Care Provider Daniel Gloria MD Attending Provider Randi Garcia DO Attending Provider María Santana MD Attending Provider Daniel Gloria Attending Unavai lable Rosa, Juvencio M. Primary Care Unavailable Daniel Gloria Admitting Unavai lable Rosa, Juvencio M. Primary Care Unavailable Edvin Hastings Admitting UnavailEdvin Perez Attending Unavailabl e Daniel Gloria Attending Unavai lable Rosa, Juvencio M. Primary Care Unavailable Daniel Gloria Admitting Unavai lable Rosa, Juvencio M. Primary Care Unavailable María Santana Admitting Unavailable María Santana Attending Unavailable Daniel Gloria Attending Unavai lable Rosa, Juvencio M. Primary Care Unavailable Daniel Gloria Admitting Unavai lable Tyra Eugene Attending Provider Unavailable Sena Izquierdo MD Attending Provider Norbert Porras MD Attending Provider [phone] Rosa DO, Juvencio M. Primary Care Provider José Luis Marin MD Attending Provider Sena Izquierdo MD Referring Provider Medications Current Medications Medication Drug Class(es) Dates Sig (Normalized) Sig (Original) acetaminophen 500 mg oral tablet (20 sources) Start: 05-07-2023 End: 09-02-2025 take 1 tablet by mouth every six hours as needed Acetaminophen (Tylenol Extra Strength) 500 mg tablet Active 500 MG PO Every 6 hours as needed November 03, 2024 2:51pm FreeTextSi tablet as needed Orally [...] day(s) Active carvedilol 25 mg oral tablet (10 sources) alpha-Adrenergic Jasson, beta-Adrenergic Jasson Start: 07-08-2024 take 1 tablet by mouth twice daily at mealtime Carvedilol (Coreg) 25 mg tablet Active 25 MG PO Twice daily 60 July 08, 2024 12:00am must administer with a meal/food Complies with drug therapy CPAP (17 sources) Start: 05-07-2023 CPAP Active 0 .Route .[facility] May 07, 2023 12:00am Medication Name: CPAP Machine; Note: Source Status: Taking; Provider: Rosa Henning ( ) Start: 05-07-2023 CPAP Active 0 .Route .[facility] May 07, 2023 1:00am Medication Name: CPAP Machine; Note: Source Status: Taking; Provider: Rosa Henning ( ) Start: 05-07-2023 CPAP Active 0 .ROUTE .[facility] May 07, 2023 1:00am Medication Name: CPAP Machine; Note: Source Status: Taking; Provider: Rosa Henning ( ) CPAP Machine (6 sources) CPAP Machine Act frances ergocalciferol 1.25 mg oral capsule (9 sources) Provitamin D2 Compound Start: 10-17-19 take 1 capsule by mouth every week Vitamin D (Ergocalciferol) 1.25 MG (75901 UT) 1 capsule Orally weekly for 90 days Oct, Active hydrALAZINE hydrochloride 50 mg oral tablet (3 sources) Arteriolar Vasodilator Start: 11-04-19 take 1 tablet by mouth twice daily Hydralazine 50 mg tablet Active 50 MG PO Twice daily November 03, 2024 12:00am Complies with drug therapy rivaroxaban 10 mg oral tablet (5 sources) Factor Xa Inhibitor Start: 11-05-19 take 1 tablet by mouth once daily Rivaroxaban (Xarelto) 10 mg tablet Active 10 MG PO Daily November 04, 2024 10:52am Complies with drug therapy Start: 11-03-2024 End: 11-04-2024 take 2 tablets by mouth once daily Rivaroxaban (Xarelto) 10 mg tablet Discontinued 20 MG PO Daily November 03, 2024 12:00am November 04, 2024 10:53am for 35 days torsemide 20 mg oral tablet (5 sources) Loop Diuretic Start: 11-04-2024 take 2 tablets by mouth once daily Torsemide 20 mg tablet Active 40 MG PO Daily November 04, 2024 12:00am Complies with drug therapy Start: 11-03-2024 End: 11-04-2024 take 1 tablet by mouth once daily in the morning Torsemide 40 mg tablet Discontinued 40 MG PO Every morning November 03, 2024 12:00am November 04, 2024 10:53am Start: 11-03-2024 take 1 tablet by wilder th once daily in the morning Torsemide 40 mg tablet Active 40 MG PO Every morning November 03, 2024 12:00am Complies with drug therapy Tylenol Extra Strength 500 MG (12 sources) take 1 tablet by wilder th every six hours as needed Tylenol Extra Strength 500 MG 1 tablet as needed Orally every 6 hrs Active Completed/Discontinued Medications Medication Drug Class(es) Dates Sig (Normalized) Sig (Original) cefTRIAXone 1000 mg injection (3 sources) Cephalosporin Antibacterial Start: 11-03-2024 End: 11-09-2024 inject 1 g by intramuscular injection once daily Ceftriaxone 1 gram recon soln Discontinued 1 GM IM Daily November 03, 2024 12:00am November 09, 2024 2:01pm cloNIDine hydrochloride 0.1 mg oral tablet (20 sources) Central alpha-2 Adrenergic Agonist Start: 07-08-2024 End: 11-03-2024 take 1 tablet by mouth three times daily Clonidine Hcl 0.1 mg tablet Discontinued 0.1 MG PO Three times daily July 08, 2024 3:16pm November 03, 2024 2:50pm Start: 03-11-2024 End: 06-10-2024 take 1 tablet [...] 10, 2024 1:00am July 08, 2024 3:16pm hydroCHLOROthiazide 25 mg oral tablet (20 sources) Thiazide Diuretic Start: 10-13-2024 End: 11-03-2024 take 1 tablet by mouth once daily Hydrochlorothiazide 25 mg tablet Discontinued 0 .ROUTE .COMPLEX 90 October 13, 2024 1:53pm November 03, 2024 2:50pm TAKE 1 TABLET BY MOUTH DAILY Start: 09-17-2024 End: 10-13-2024 take 1 tablet [...] Once a day for 30 day(s) Active lisinopril 40 mg oral tablet (20 sources) [...] Problem Classification Problem Date Documented Date Episodic/Chronic Chronic kidney disease (12 sources) Chronic kidney disease stage 4; Translations: [Chronic kidney disease, stage 4 (severe)] 11-03-2024 Chronic Coma; stupor; and brain damage (20 sources) Daytime somnolence; Translations: [Somnolence] Onset: 2 Resolved: 2 Episodic Essential hypertension (20 sources) Essential (primary) hypertension; Translations: [Malignant hypertension] Onset: 1 Resolved: 2 Chronic Genitourinary symptoms and ill-defined conditions (6 sources) Proteinuria; Translations: [Proteinuria, unspecified] 11-03-2024 Episodic Hypertension with complications and secondary hypertension (7 sources) Chronic kidney disease due to hypertension; Translations: [Hypertensive chronic kidney disease with stage 1 through stage 4 chronic kidney disease, or unspecified chronic kidney disease] 11-03-2024 Chronic Malaise and fatigue (20 sources) Chronic fatigue, unspecified; Translations: [Fatigue] Onset: 1 Resolved: 2 Chronic Other connective tissue disease (8 sources) Other specified soft tissue disorders; Translations: [Swelling of limb] 12-25-2023 Episodic Other connective tissue disease (16 sources) Swelling of left lower limb; Translations: [Other specified soft tissue disorders] 2024 Episodic Other diseases of kidney and ureters (6 sources) Secondary hyperparathyroidism; Translations: [Secondary hyperparathyroidism of renal origin] 11-03-2024 Chronic Other diseases of veins and lymphatics (17 sources) Venous insufficiency of leg; Translations: [Venous insufficiency (chronic) (peripheral)] 02-13-2024 Episodic Other diseases of veins and lymphatics (5 sources) Venous insufficiency (chronic) (peripheral); Translations: [Venous (peripheral) insufficiency, unspecified] 02-13-2024 Episodic Other lower respiratory disease (11 sources) Dyspnea on exertion; Translations: [Other forms of dyspnea] 07-08-2024 Episodic Other lower respiratory disease (3 sources) Other forms of dyspnea; Translations: [Other respiratory abnormalities] 07-08-2024 Episodic Other lower respiratory disease (1 source) Dyspnea, unspecified; Translations: [Dyspnea, unspecified] Onset: 5 Episodic Other nutritional; endocrine; and metabolic disorders [...] specified abnormal findings of blood chemistry] Onset: 5 Episodic Residual codes; unclassified (20 sources) Obstructive sleep apnea syndrome; Translations: [Obstructive sleep apnea (adult) (pediatric)] 02-10-2024 Chronic Residual codes; unclassified (6 sources) Obstructive sleep apnea (adult) (pediatric); Translations: [Obstructive sleep apnea (adult)(pediatric)] Onset: 2 Resolved: 2 Chronic Skin and subcutaneous tissue infections (1 source) Cellulitis; Translations: [Cellulitis, unspecified] 11-09-2024 Episodic Past or Other Problems Problem Classification Problem [...] Facility Basophils Auto (Bld) [#/Vol] Ordered By: Sena Izquierdo on 10-29-2024 Basophils (Bld) [#/Vol] 0.1 10 3/uL 0.0-0.1 [facility] Basophils/100 WBC Auto (Bld) Ordered By: Sena Izquierdo on 10-29-2024 Basophils/100 WBC (Bld) 0.5 % 0.2-2.0 [facility] Eosinophils/100 WBC Auto (Bl d)Ordered By: Sena Izquierdo on 10-29-2024 Eosinophils/100 WBC (Bld) 3.6 % 0.9-7.0 [facility] Erythrocyte distribution wid th Auto (RBC) [Ratio]Ordered By: Sena Izquierdo on 10-29-2024 Erythrocyte distribution width (RBC) [Ratio] 14.1 % 11.0-15.0 [facility] Globulin Calc (S) [Mass/Vol] Ordered By: Sena Izquierdo on 10-29-2024 Globulin (S) [Mass/Vol] 5.9 g/dL [facility] Glomerular filtration rate ( GFR) estimation in non- AmericanOrdered By: Sena Izquierdo on 10-29-2024 GFR/1.73 sq M.predicted among non-blacks MDRD (S/P/Bld) [Vol rate/Area] 20 mL/min/{1.73_m2} Low >=60 mL/min/1.7 2 [facility] Hematocrit Auto (Bld) [Volum e fraction]Ordered By: Sena Izquierdo on 10-29-2024 Hematocrit (Bld) [Volume fraction] 33.6 % Low 42.0-54.0 [facility] Hemoglobin [Mass/volume] in BloodOrdered By: Sena Izquierdo on 10-29-2024 Hemoglobin (Bld) [Mass/Vol] 10.8 g/dL Low 14.0-18.0 [facility] Laboratory - Chemistry and C hemistry - challengeOrdered By: Sena Izquierdo on 10-29-2024 Albumin [Mass/Vol] 1.8 g/dL Low 3.4-5.0 [facility] ALP [Catalytic activity/Vol] 128 U/L High 46-116 [facility] ALT [Catalytic activity/Vol] 26 U/L 16-63 [facility] AST [Catalytic activity/Vol] 23 U/L 15-37 [facility] Bilirubin [Mass/Vol] 0.4 mg/dL 0.2-1.0 [facility] Calcium [Mass/Vol] 8.4 mg/dL Low 8.5-10.1 [facility] Chloride [Moles/Vol] 102 mmol/L 98-107 [facility] CO2 [Moles/Vol] 23.9 mmol/L 21.0-32.0 [facility] Creatinine [Mass/Vol] 3.34 mg/dL High 0.70-1.30 [facility] GFR/1.73 sq M.predicted MDRD (S/P/Bld) [Vol rate/Area] 24 mL/min/{1.73_m2} Low >=60 mL/min/1.7 3m 2 [facility] Glucose [Mass/Vol] 112 mg/dL High 74-106 [facility] Potassium [Moles/Vol] 3.8 mmol/L 3.5-5.1 [facility] Protein [Mass/Vol] 7.7 g/dL 6.4-8.2 [facility] Sodium [Moles/Vol] 134 mmol/L Low 136-145 [facility] Urea nitrogen [Mass/Vol] 41.0 mg/dL High 7.0-18.0 [facility] Urea nitrogen/Creatinine [Mass ratio] 12.3 mg/mg [facility] - Hematology and Cell countsOrdered By: Sena Izquierdo on 10-29-2024 Immature granulocytes/100 WBC (Bld) 1.7 % High 0.0-0.5 [facility] Leukocytes [#/volume] correc miguel for nucleated erythrocytes in Blood by Automated counOrdered By: Sena Izquierdo on 10-29-2024 WBC corrected for nucl RBC Auto (Bld) [#/Vol] 18.4 10 3/uL High 4.0-11.0 [facility] Lymphocytes Auto (Bld) [#/Vo l]Ordered By: Sena Izquierdo on 10-29-2024 Lymphocytes (Bld) [#/Vol] 1.7 10 3/uL 1.2-3.8 [facility] Lymphocytes/100 WBC Auto (Bl d)Ordered By: Sena Izquierdo on 10-29-2024 Lymphocytes/100 WBC (Bld) 9.5 % Low 20.5-60.0 [facility] MCH Auto (RBC) [Entitic mass ]Ordered By: Sena Izquierdo on 10-29-2024 MCH (RBC) [Entitic mass] 28.3 pg 25.9-34.0 [facility] MCHC Auto (RBC) [Mass/Vol]Or dered By: Sena Izquierdo on 10-29-2024 MCHC (RBC) [Mass/Vol] 32.1 g/dL 29.9-35.2 [facility] MCV Auto (RBC) [Entitic vol] Ordered By: Sena Izquierdo on 10-29-2024 MCV (RBC) [Entitic vol] 88.0 fL 80.0-94.0 [facility] Monocytes Auto (Bld) [#/Vol] Ordered By: Sena Izquierdo on 10-29-2024 Monocytes (Bld) [#/Vol] 1.0 10 3/uL High 0.3-0.8 [facility] Monocytes/100 WBC Auto (Bld) Ordered By: Sena Izquierdo on 10-29-2024 Monocytes/100 WBC (Bld) 5.2 % 1.7-12.0 [facility] Neutrophils Auto (Bld) [#/Vo l]Ordered By: Sena Izquierdo on 10-29-2024 Neutrophils (Bld) [#/Vol] 14.6 10 3/uL High 1.4-6.5 [facility] Neutrophils/100 WBC Auto (Bl d)Ordered By: Sena Izquierdo on 10-29-2024 Neutrophils/100 WBC (Bld) 79.5 % High 43.0-75.0 [facility] No Panel InformationOrdered By: Sena Izquierdo on 10-29-2024 Eosinophils # (Auto) 0.7 10 3/uL 0.0-0.7 [facility] Immature Granulocyte # (Auto) 0.31 10 3/uL High 0.00-0.03 [facility] Platelet mean volume Auto (B ld) [Entitic vol]Ordered By: Sena Izquierdo on 10-29-2024 Platelet mean volume (Bld) [Entitic vol] 9.9 fL 9.5-13.5 [facility] Platelets Auto (Bld) [#/Vol] Ordered By: Sena Izquierdo on 10-29-2024 Platelets (Bld) [#/Vol] 547 10 3/uL High 150-450 [facility] RBC Auto (Bld) [#/Vol]Ordere d By: Sena Izquierdo on 10-29-2024 RBC (Bld) [#/Vol] 3.82 10 6/uL Low 4.70-6.10 [facility] Serum or plasma albumin/glob ulin mass ratioOrdered By: Sena Izquierdo on 10-29-2024 Albumin/Globulin [Mass ratio] 0.3 {ratio} [facility] Serum or plasma anion gap de terminationOrdered By: Sena Izquierdo on 10-29-2024 Anion gap [Moles/Vol] 11.9 mmol/L [facility] Glomerular filtration rate ( GFR) estimation in non- AmericanOrdered By: María Santana on 10-27-2024 GFR/1.73 sq M.predicted among non-blacks MDRD (S/P/Bld) [Vol rate/Area] 23 mL/min/{1.73_m2} Low >=60 mL/min/1.7 3m 2 [facility] - Chemistry and C hemistry - challengeOrdered By: María Santana on 10-27-2024 Calcium [Mass/Vol] 9.0 mg/dL 8.5-10.1 [facility] Chloride [Moles/Vol] 101 mmol/L 98-107 [facility] CO2 [Moles/Vol] 24.8 mmol/L 21.0-32.0 [facility] Creatinine [Mass/Vol] 2.86 mg/dL High 0.70-1.30 [facility] GFR/1.73 sq M.predicted MDRD (S/P/Bld) [Vol rate/Area] 28 mL/min/{1.73_m2} Low >=60 mL/min/1.7 3m 2 [facility] Glucose [Mass/Vol] 104 mg/dL 74-106 [facility] Potassium [Moles/Vol] 3.3 mmol/L Low 3.5-5.1 [facility] Sodium [Moles/Vol] 138 mmol/L 136-145 [facility] Urea nitrogen [Mass/Vol] 39.0 mg/dL High 7.0-18.0 [facility] Urea nitrogen/Creatinine [Mass ratio] 13.6 mg/mg [facility] Serum or plasma anion gap de terminationOrdered By: María Santana on 10-27-2024 Anion gap [Moles/Vol] 15.5 mmol/L [facility] Glomerular filtration rate ( GFR) estimation in non- AmericanOrdered By: María Santana on 10-26-2024 GFR/1.73 sq M.predicted among non-blacks MDRD (S/P/Bld) [Vol rate/Area] 22 mL/min/{1.73_m2} Low >=60 mL/min/1.7 3m 2 [facility] - Chemistry and C hemistry - challengeOrdered By: María Santana on 10-26-2024 Calcium [Mass/Vol] 8.6 mg/dL 8.5-10.1 [facility] Chloride [Moles/Vol] 100 mmol/L 98-107 [facility] CO2 [Moles/Vol] 23.4 mmol/L 21.0-32.0 [facility] Creatinine [Mass/Vol] 3.04 mg/dL High 0.70-1.30 [facility] GFR/1.73 sq M.predicted MDRD (S/P/Bld) [Vol rate/Area] 27 mL/min/{1.73_m2} Low >=60 mL/min/1.7 3m 2 [facility] Glucose [Mass/Vol] 123 mg/dL High 74-106 [facility] Potassium [Moles/Vol] 3.3 mmol/L Low 3.5-5.1 [facility] Sodium [Moles/Vol] 136 mmol/L 136-145 [facility] Urea nitrogen [Mass/Vol] 40.0 mg/dL High 7.0-18.0 [facility] Urea nitrogen/Creatinine [Mass ratio] 13.2 mg/mg [facility] Serum or plasma anion gap de terminationOrdered By: María Santana on 10-26-2024 Anion gap [Moles/Vol] 15.9 mmol/L [facility] Erythrocyte distribution wid th Auto (RBC) [Ratio]Ordered By: María Santana on 10-25-2024 Erythrocyte distribution width (RBC) [Ratio] 13.7 % 11.0-15.0 [facility] Glomerular filtration rate ( GFR) estimation in non- AmericanOrdered By: María Santana on 10-25-2024 GFR/1.73 sq M.predicted among non-blacks MDRD (S/P/Bld) [Vol rate/Area] 21 mL/min/{1.73_m2} Low >=60 mL/min/1.7 3m 2 [facility] Hematocrit Auto (Bld) [Volum e fraction]Ordered By: María Santana on 10-25-2024 Hematocrit (Bld) [Volume fraction] 31.3 % Low 42.0-54.0 [facility] Hemoglobin [Mass/volume] in BloodOrdered By: María Santana on 10-25-2024 Hemoglobin (Bld) [Mass/Vol] 10.4 g/dL Low 14.0-18.0 [facility] - Chemistry and C hemistry - challengeOrdered By: María Santana on 10-25-2024 Calcium [Mass/Vol] 8.6 mg/dL 8.5-10.1 [facility] Chloride [Moles/Vol] 100 mmol/L 98-107 [facility] CO2 [Moles/Vol] 22.3 mmol/L 21.0-32.0 [facility] Creatinine [Mass/Vol] 3.17 mg/dL High 0.70-1.30 [facility] GFR/1.73 sq M.predicted MDRD (S/P/Bld) [Vol rate/Area] 25 mL/min/{1.73_m2} Low >=60 mL/min/1.[address] [place] [address] Glucose [Mass/Vol] 111 mg/dL High 74-106 [facility] Potassium [Moles/Vol] 3.3 mmol/L Low 3.5-5.1 [facility] Sodium [Moles/Vol] 135 mmol/L Low 136-145 [facility] Urea nitrogen [Mass/Vol] 42.0 mg/dL High 7.0-18.0 [facility] Urea nitrogen/Creatinine [Mass ratio] 13.2 mg/mg [facility] Leukocytes [#/volume] correc miguel for nucleated erythrocytes in Blood by Automated counOrdered By: María Santana on 10-25-2024 WBC corrected for nucl RBC Auto (Bld) [#/Vol] 15.7 10 3/uL High 4.0-11.0 [facility] MCH Auto (RBC) [Entitic mass ]Ordered By: María Santana on 10-25-2024 MCH (RBC) [Entitic mass] 28.7 pg 25.9-34.0 [facility] MCHC Auto (RBC) [Mass/Vol]Or dered By: María Santana on 10-25-2024 MCHC (RBC) [Mass/Vol] 33.2 g/dL 29.9-35.2 [facility] MCV Auto (RBC) [Entitic vol] Ordered By: María Santana on 10-25-2024 MCV (RBC) [Entitic vol] 86.2 fL 80.0-94.0 [facility] No Panel InformationOrdered By: María Santana on 10-25-2024 C-Reactive Protein, Quantitative 30.92 mg/dL High <=0.50 [facility] Platelet mean volume Auto (B ld) [Entitic vol]Ordered By: María Santana on 10-25-2024 Platelet mean volume (Bld) [Entitic vol] 10.5 fL 9.5-13.5 [facility] Platelets Auto (Bld) [#/Vol] Ordered By: María Santana on 10-25-2024 Platelets (Bld) [#/Vol] 279 10 3/uL 150-450 [facility] RBC Auto (Bld) [#/Vol]Ordere d By: María Santana on 10-25-2024 RBC (Bld) [#/Vol] 3.63 10 6/uL Low 4.70-6.10 [facility] Serum or plasma anion gap de terminationOrdered By: María Santana on 10-25-2024 Anion gap [Moles/Vol] 16.0 mmol/L [facility] Basophils Auto (Bld) [#/Vol] Ordered By: María Santana on 10-24-2024 Basophils (Bld) [#/Vol] 0.1 10 3/uL 0.0-0.1 [facility] Basophils/100 WBC Auto (Bld) Ordered By: María Santana on 10-24-2024 Basophils/100 WBC (Bld) 0.4 % 0.2-2.0 [facility] Eosinophils/100 WBC Auto (Bl d)Ordered By: María Santana on 10-24-2024 Eosinophils/100 WBC (Bld) 0.4 % Low 0.9-7.0 [facility] Erythrocyte distribution wid th Auto (RBC) [Ratio]Ordered By: María Santana on 10-24-2024 Erythrocyte distribution width (RBC) [Ratio] 13.5 % 11.0-15.0 [facility] Glomerular filtration rate ( GFR) estimation in non- AmericanOrdered By: María Santana on 10-24-2024 GFR/1.73 sq M.predicted among non-blacks MDRD (S/P/Bld) [Vol rate/Area] 19 mL/min/{1.73_m2} Low >=60 mL/min/1.7 3m 2 [facility] Hematocrit Auto (Bld) [Volum e fraction]Ordered By: María Santana on 10-24-2024 Hematocrit (Bld) [Volume fraction] 34.5 % Low 42.0-54.0 [facility] Hemoglobin [Mass/volume] in BloodOrdered By: María Santana on 10-24-2024 Hemoglobin (Bld) [Mass/Vol] 11.3 g/dL Low 14.0-18.0 [facility] - Chemistry and C hemistry - challengeOrdered By: María Santana on 10-24-2024 Calcium [Mass/Vol] 8.7 mg/dL 8.5-10.1 [facility] Chloride [Moles/Vol] 100 mmol/L 98-107 [facility] CO2 [Moles/Vol] 23.7 mmol/L 21.0-32.0 [facility] Creatinine [Mass/Vol] 3.38 mg/dL High 0.70-1.30 [facility] GFR/1.73 sq M.predicted MDRD (S/P/Bld) [Vol rate/Area] 23 mL/min/{1.73_m2} Low >=60 mL/min/1.7 3m 2 [facility] Glucose [Mass/Vol] 106 mg/dL 74-106 [facility] Potassium [Moles/Vol] 3.4 mmol/L Low 3.5-5.1 [facility] Sodium [Moles/Vol] 135 mmol/L Low 136-145 [facility] Urea nitrogen [Mass/Vol] 45.0 mg/dL High 7.0-18.0 [facility] Urea nitrogen/Creatinine [Mass ratio] 13.3 mg/mg [facility] - Hematology and Cell countsOrdered By: María Santana on 10-24-2024 Immature granulocytes/100 WBC (Bld) 0.6 % High 0.0-0.5 [facility] Leukocytes [#/volume] correc miguel for nucleated erythrocytes in Blood by Automated counOrdered By: María Santana on 10-24-2024 WBC corrected for nucl RBC Auto (Bld) [#/Vol] 16.7 10 3/uL High 4.0-11.0 [facility] Lymphocytes Auto (Bld) [#/Vo l]Ordered By: María Santana on 10-24-2024 Lymphocytes (Bld) [#/Vol] 1.6 10 3/uL 1.2-3.8 [facility] Lymphocytes/100 WBC Auto (Bl d)Ordered By: María Santana on 10-24-2024 Lymphocytes/100 WBC (Bld) 9.5 % Low 20.5-60.0 [facility] MCH Auto (RBC) [Entitic mass ]Ordered By: María Santana on 10-24-2024 MCH (RBC) [Entitic mass] 28.6 pg 25.9-34.0 [facility] MCHC Auto (RBC) [Mass/Vol]Or dered By: María Santana on 10-24-2024 MCHC (RBC) [Mass/Vol] 32.8 g/dL 29.9-35.2 [facility] MCV Auto (RBC) [Entitic vol] Ordered By: María Santana on 10-24-2024 MCV (RBC) [Entitic vol] 87.3 fL 80.0-94.0 [facility] Monocytes Auto (Bld) [#/Vol] Ordered By: María Santana on 10-24-2024 Monocytes (Bld) [#/Vol] 0.8 10 3/uL 0.3-0.8 [facility] Monocytes/100 WBC Auto (Bld) Ordered By: María Santana on 10-24-2024 Monocytes/100 WBC (Bld) 4.9 % 1.7-12.0 [facility] Neutrophils Auto (Bld) [#/Vo l]Ordered By: María Santana on 10-24-2024 Neutrophils (Bld) [#/Vol] 14.1 10 3/uL High 1.4-6.5 [facility] Neutrophils/100 WBC Auto (Bl d)Ordered By: María Santana on 10-24-2024 Neutrophils/100 WBC (Bld) 84.2 % High 43.0-75.0 [facility] No Panel InformationOrdered By: María Santana on 10-24-2024 Eosinophils # (Auto) 0.1 10 3/uL 0.0-0.7 [facility] Immature Granulocyte # (Auto) 0.10 10 3/uL High 0.00-0.03 [facility] Platelet mean volume Auto (B ld) [Entitic vol]Ordered By: María Santana on 10-24-2024 Platelet mean volume (Bld) [Entitic vol] 10.8 fL 9.5-13.5 [facility] Platelets Auto (Bld) [#/Vol] Ordered By: María Santana on 10-24-2024 Platelets (Bld) [#/Vol] 257 10 3/uL 150-450 [facility] RBC Auto (Bld) [#/Vol]Ordere d By: María Santana on 10-24-2024 RBC (Bld) [#/Vol] 3.95 10 6/uL Low 4.70-6.10 [facility] Serum or plasma anion gap de terminationOrdered By: María Santana on 10-24-2024 Anion gap [Moles/Vol] 14.7 mmol/L [facility] Activated partial thrombopla stin time (aPTT) in platelet poor plasma by coagulation aOrdered By: Randi Garcia on 10-23-2024 aPTT Coag (PPP) [Time] 35.6 s 22.3-36.2 [facility] Basophils Auto (Bld) [#/Vol] Ordered By: Randi Marker on 10-23-2024 Basophils (Bld) [#/Vol] 0.1 10 3/uL 0.0-0.1 [facility] Basophils/100 WBC Auto (Bld) Ordered By: Randi Marker on 10-23-2024 Basophils/100 WBC (Bld) 0.2 % 0.2-2.0 [facility] Eosinophils/100 WBC Auto (Bl d)Ordered By: Randi Marker on 10-23-2024 Eosinophils/100 WBC (Bld) 0.8 % Low 0.9-7.0 [facility] Erythrocyte distribution wid th Auto (RBC) [Ratio]Ordered By: Randi Marker on 10-23-2024 Erythrocyte distribution width (RBC) [Ratio] 13.6 % 11.0-15.0 [facility] Fibrin D-dimer [Presence] in Platelet poor plasma by Latex agglutinationOrdered By: Randi Marker on 10-23-2024 Fibrin D-dimer LA Ql (PPP) 1.39 mg/L FEU Critically high <=0.59 [facility] Comment on above: RESULTS CALLED TO [...] on 10-23-2024 Globulin (S) [Mass/Vol] 5.4 g/dL [facility] Glomerular filtration rate ( GFR) estimation in non- AmericanOrdered By: Randi Marker on 10-23-2024 GFR/1.73 sq M.predicted among non-blacks MDRD (S/P/Bld) [Vol rate/Area] 17 mL/min/{1.73_m2} Low >=60 mL/min/1.7 3m 2 [facility] Hematocrit Auto (Bld) [Volum e fraction]Ordered By: Randi Marker on 10-23-2024 Hematocrit (Bld) [Volume fraction] 35.5 % Low 42.0-54.0 [facility] Hemoglobin [Mass/volume] in BloodOrdered By: Randi Marker on 10-23-2024 Hemoglobin (Bld) [Mass/Vol] 12.0 g/dL Low 14.0-18.0 [facility] [facility] in Platelet poor plasma by Coagulation assayOrdered By: Randi Marker on 10-23-2024 INR Coag (PPP) [Relative time] 1.07 {INR} [facility] Comment on above: DESIRED INR:2.0-3.0 CONDITIONS NOT LISTED BELOW2.5-3.5 FOR PROSTHETIC HEART VALVE REPLACEMENT2.5-3.5 RECURRENT THROMBOSIS Laboratory - Chemistry and C hemistry - challengeOrdered By: María Santana on 10-23-2024 Bilirubin Ql (U) Negative NEGATIVE [facility] Glucose (U) [Mass/Vol] Negative NEGATIVE [facility] Ketones Ql (U) Negative NEGATIVE [facility] pH (U) 5.5 [pH] 5.0-9.0 [facility] Specific gravity (U) [Rel density] 1.025 1.005-1.02 5 [facility] Urobilinogen Qn (U) 1.0 {Abiola'U}/dL 0.2-1.0 [facility] Laboratory - Chemistry and C hemistry - challengeOrdered By: Randi Marker on 10-23-2024 Albumin [Mass/Vol] 2.4 g/dL Low 3.4-5.0 [facility] ALP [Catalytic activity/Vol] 89 U/L 46-116 [facility] ALT [Catalytic activity/Vol] 27 U/L 16-63 [facility] AST [Catalytic activity/Vol] 24 U/L 15-37 [facility] Bilirubin [Mass/Vol] 0.4 mg/dL 0.2-1.0 [facility] Calcium [Mass/Vol] 8.5 mg/dL 8.5-10.1 [facility] Chloride [Moles/Vol] 97 mmol/L Low 98-107 [facility] CO2 [Moles/Vol] 25.1 mmol/L 21.0-32.0 [facility] Creatinine [Mass/Vol] 3.79 mg/dL High 0.70-1.30 [facility] GFR/1.73 sq M.predicted MDRD (S/P/Bld) [Vol rate/Area] 21 mL/min/{1.73_m2} Low >=60 mL/min/1.7 3m 2 [facility] Glucose [Mass/Vol] 119 mg/dL High 74-106 [facility] Lactate [Moles/Vol] 1.1 mmol/L 0.4-2.0 [facility] Potassium [Moles/Vol] 3.2 mmol/L Low 3.5-5.1 [facility] Protein [Mass/Vol] 7.8 g/dL 6.4-8.2 [facility] Sodium [Moles/Vol] 132 mmol/L Low 136-145 [facility] Urea nitrogen [Mass/Vol] 46.0 mg/dL High 7.0-18.0 [facility] Urea nitrogen/Creatinine [Mass ratio] 12.1 mg/mg [facility] Laboratory - Hematology and Cell countsOrdered By: Randi Garcia on 10-23-2024 Immature granulocytes/100 WBC (Bld) 0.5 % 0.0-0.5 [facility] Laboratory - Specimen inform ationOrdered By: María Santana on 10-23-2024 Appearance (U) SL CLOUDY CLEAR [facility] Color (U) LT. YELLOW YELLOW [facility] Laboratory - UrinalysisOrder ed By: María Santana on 10-23-2024 Amorphous sediment LM Ql (Urine sed) FEW [facility] Leukocyte esterase Test strip Ql (U) Negative NEGATIVE [facility] Mucus Ql (Urine sed) NONE SEEN NONE SEEN [facility] Nitrite Ql (U) Negative NEGATIVE [facility] Protein Ql (U) 100 mg/dL Abnormal NEG/TRACE [facility] Leukocytes [#/volume] correc miguel for nucleated erythrocytes in Blood by Automated counOrdered By: Randi Marker on 10-23-2024 WBC corrected for nucl RBC Auto (Bld) [#/Vol] 21.5 10 3/uL High 4.0-11.0 [facility] Lymphocytes Auto (Bld) [#/Vo l]Ordered By: Randi Marker on 10-23-2024 Lymphocytes (Bld) [#/Vol] 1.6 10 3/uL 1.2-3.8 [facility] Lymphocytes/100 WBC Auto (Bl d)Ordered By: Randi Marker on 10-23-2024 Lymphocytes/100 WBC (Bld) 7.6 % Low 20.5-60.0 [facility] MCH Auto (RBC) [Entitic mass ]Ordered By: Randi Marker on 10-23-2024 MCH (RBC) [Entitic mass] 29.3 pg 25.9-34.0 [facility] MCHC Auto (RBC) [Mass/Vol]Or dered By: Randi Marker on 10-23-2024 MCHC (RBC) [Mass/Vol] 33.8 g/dL 29.9-35.2 [facility] MCV Auto (RBC) [Entitic vol] Ordered By: Ranid Marker on 10-23-2024 MCV (RBC) [Entitic vol] 86.6 fL 80.0-94.0 [facility] Monocytes Auto (Bld) [#/Vol] Ordered By: Randi Marker on 10-23-2024 Monocytes (Bld) [#/Vol] 0.7 10 3/uL 0.3-0.8 [facility] Monocytes/100 WBC Auto (Bld) Ordered By: Randi Marker on 10-23-2024 Monocytes/100 WBC (Bld) 3.3 % 1.7-12.0 [facility] Neutrophils Auto (Bld) [#/Vo l]Ordered By: Randi Marker on 10-23-2024 Neutrophils (Bld) [#/Vol] 18.9 10 3/uL High 1.4-6.5 [facility] Neutrophils/100 WBC Auto (Bl d)Ordered By: Randi Marker on 10-23-2024 Neutrophils/100 WBC (Bld) 87.6 % High 43.0-75.0 [facility] No Panel InformationOrdered By: María Santana on 10-23-2024 Urine Bacteria TRACE #/HPF Abnormal NONE SEEN [facility] Urine Culture Reflexed YES-[facility] Urine Occult Blood LARGE Abnormal NEGATIVE [facility] Urine Other Casts NONE SEEN #/LPF NONE SEEN [facility] Urine Other Crystals Seen #/HPF Abnormal None Seen [facility] Urine RBC 5-10 #/HPF Abnormal 0-2 [facility] Urine Squamous Epithelial Cells FEW #/LPF Abnormal NONE/RARE [facility] Urine WBC 2-5 #/HPF Abnormal NONE SEEN [facility] No Panel InformationOrdered By: Randi Marker on 10-23-2024 Eosinophils # (Auto) 0.2 10 3/uL 0.0-0.7 [facility] Immature Granulocyte # (Auto) 0.10 10 3/uL High 0.00-0.03 [facility] Troponin I High Sensitivity 44.8 pg/mL 4.0-76.1 [facility] Comment on above: CUT-OFF POINTS HAVE [...] volume (Bld) [Entitic vol] 10.3 fL 9.5-13.5 [facility] Platelets Auto (Bld) [#/Vol] Ordered By: Randi Marker on 10-23-2024 Platelets (Bld) [#/Vol] 257 10 3/uL 150-450 [facility] Prothrombin time (PT)Ordered By: Randi Marker on 10-23-2024 PT Coag (PPP) [Time] 11.3 s 9.0-11.6 [facility] RBC Auto (Bld) [#/Vol]Ordere d By: Randi Marker on 10-23-2024 RBC (Bld) [#/Vol] 4.10 10 6/uL Low 4.70-6.10 [facility] Serum or plasma albumin/glob ulin mass ratioOrdered By: Randi Marker on 10-23-2024 Albumin/Globulin [Mass ratio] 0.4 {ratio} [facility] Serum or plasma anion gap de terminationOrdered By: Randi Marker on 10-23-2024 Anion gap [Moles/Vol] 13.1 mmol/L [facility] Urine Cultureon 10-23-2024 Bacteria identified Cx Nom (U) No Growth 2 Days PERFORMED BY: [place] [address] PATHOLOGIST SOFTWARE TEST MANAGER SHLOMO Rolle [facility] Comment on above: Performed By: #### C UU #### [address] Urine cultureOrdered By: Evangelist Santana on 10-23-2024 Bacteria identified Cx Nom (U) No Growth 2 Days [facility] US renal doppleron US renal doppler [facility] [place] [place] [address] Ultrasound Report Signed Patient: Suresh Vallejo MR#: [id number] 0 : 1975 Acct:[id number] Age/Sex: 49 / M ADM Date: 08/10/24 Loc: Room: Type: [facility] Attending Dr: Daniel Gloria MD Ordering Provider: Daniel Gloria MD Date of Service: 08/10/24 US/US renal doppler: R/O Renal artery stenosis Copies to: Daniel Gloria MD Renal artery duplex examination performed using B-mode, color flow and spectral Doppler assessment (CPT: 34109) INDICATION: FINDINGS: Aorta: PSV 54.2 cm/s Right [...] 08/11/2024 12:33 PM Dictation Location: [place] [address] Tech: Elis Sotelo Transcribed By: [facility] 08/11/24 1233 Dictated By: Edvin Hastings MD 08/11/24 1232 Signed By: 08/11/24 1233 Normal [facility] echo transthoracicon [facility] echo transthoracic [facility] [place] [address] Echocardiogram Signed Patient: Suresh Vallejo MR#: [id number] 0 : 1975 Acct:[id number] Age/Sex: 49 / M ADM Date: 08/10/24 Loc: Room: Type: [facility] Attending Dr: Daniel Gloria MD Ordering Provider: Daniel Gloria MD Date of Service: 08/10/2411/27/847 [facility] echo transthoracic: I10 - Essential (primary) hypertension Copies to: MD Ernesto English MD, [facility] Weight: 380 lb Performed By: ALICIA [...] 3.5 cm2 Transcribed By: GENET Performed At: 08/10/2438 Signed By: Ernesto Ch MD, [facility] 08/10/24 1041 Normal [facility] A1C with Estimated Average G svenn 07-13-2024 Glucose [Mass/Vol] 128 mg/dL Normal [facility] Comment on above: Result Comment: PERF ORMED BY: [place] [address] PATHOLOGIST SOFTWARE TEST MANAGER SEBASTIAN SIMMS M.D. Performed By: #### R ENACT, UMETRA, ALD #### [facility] , #### A1C WTH eA, BMP #### [address] Aldosteroneon 07-13-2024 Aldosterone 8.6 ng/dL Normal 0.0-30.0 [facility] Comment on above: Result Comment: This test was developed and its performance characteristics determined by [facility]. It has not been cleared or approved by the Food and Drug Administration. Performed at: [address] [id number] Material Cutter: John Mandel MD, Phone: [phone] PERFORMED BY: [place] [address] PATHOLOGIST SOFTWARE TEST MANAGER SEBASTIAN SIMMS M.D. Performed By: #### R ENACT, UMETRA, ALD #### [facility] , #### A1C WTH eA, BMP #### [facility] [address] [place] [address] Basic Metabolic Panelon 07-02 Estimated GFR 29.915 mL/Min Normal [facility] Comment on above: Performed By: #### R ENACT, UMETRA, ALD #### [facility] , #### A1C WTH eA, BMP #### [facility] [address] Blood estimated average gluc ose determination by estimation from glycated hemoglobinOrdered By: Daniel Gloria on 07-13-2024 Average glucose Estimated from glycated hemoglobin (Bld) [Mass/Vol] Glucose mean value [Mass/volume] in Blood Estimated from glycated hemoglobin [facility] Average glucose Estimated from glycated hemoglobin (Bld) [Mass/Vol] 128 mg/dL [facility] Calcium [Mass/volume] in Ser um or PlasmaOrdered By: Daniel Gloria on 07-13-2024 Calcium [Mass/Vol] Calcium [Mass/volume ] in Serum or Plasma 8.6-10.3 [facility] Calcium [Mass/Vol] 8.8 mg/dL Normal 8.6-10.3 [facility] Comment on above: Result Comment: PERF ORMED BY: [place] [address] PATHOLOGIST SOFTWARE TEST MANAGER SEBASTIAN SIMMS M.D. Performed By: #### R ENACT, UMETRA, ALD #### [facility] , #### A1C WTH eA, BMP #### [facility] [address] [place] [address] [place] Carbon dioxide, total [Moles /volume] in Serum or PlasmaOrdered By: Daniel Gloria on 07-13-2024 CO2 [Moles/Vol] Carbon dioxide, tota l [Moles/volume] in Serum or Plasma 21.0-31.0 [facility] CO2 [Moles/Vol] 27.0 mmol/L Normal 21.0-31.0 [facility] Comment on above: Performed By: #### R ENACT, UMETRA, ALD #### [facility] , #### A1C WTH eA, BMP #### [facility] [address] [place] [address] [place] Chloride [Moles/volume] in S brenton or PlasmaOrdered By: Daniel Gloria on 07-13-2024 Chloride [Moles/Vol] Chloride [Moles/vol ume] in Serum or Plasma 98-107 [facility] Chloride [Moles/Vol] 103 mmol/L Normal 98-107 [facility] Comment on above: Performed By: #### R SHANA DINERO, ALD #### [facility] , #### A1C WTH eA, BMP #### [facility] [address] Creatinine [Mass/volume] in Serum or PlasmaOrdered By: Daniel Gloria on 07-13-2024 Creatinine [Mass/Vol] Creatinine [Mass/v olume] in Serum or Plasma High 0.70-1.30 [facility] Creatinine [Mass/Vol] 2.53 mg/dL High 0.70-1.30 [facility] Comment on above: Performed By: #### R SHANA DINERO, ALD #### [facility] , #### A1C WTH eA, BMP #### [place] [address] [place] Glucose [Mass/volume] in Ser um or PlasmaOrdered By: Daniel Gloria on 07-13-2024 Glucose [Mass/Vol] Glucose [Mass/volume ] in Serum or Plasma High 70-100 [facility] Comment on above: ADA recommended refe rence rangeRandom Glucose Reference Range is dependent on time and content of last meal. Glucose of more than 200 mg/dL in a nonstressed, ambulatory subject supports the diagnosis of Diabetes Mellitus. Glucose [Mass/Vol] 119 mg/dL High 70-100 [facility] Comment on above: ADA recommended refe rence rangeRandom Glucose Reference Range is dependent on time and content of last meal. Glucose of more than 200 mg/dL in a nonstressed, ambulatory subject supports the diagnosis of Diabetes Mellitus. Result Comment: [place] Glucose Reference Range is dependent on time and content of last meal. Glucose of more than 200 mg/dL in a nonstressed, ambulatory subject supports the diagnosis of Diabetes Mellitus. ADA recommended reference range Performed By: #### R ENACT UMETRA, ALD #### [facility] , #### A1C WTH eA, BMP #### [facility] [address] Hemoglobin A1c/Hemoglobin.to frandy in BloodOrdered By: Daniel Gloria on 07-13-2024 HbA1c (Bld) [Mass fraction] Hemoglobin A1c percentage High 4.3-5.6 [facility] Comment on above: Increased risk for d iabetes: 5.7 - 6.4diabetes: >6.4glycemic control for adults with diabetes: <7.0 HbA1c (Bld) [Mass fraction] 6.1 % High 4.3-5.6 [facility] Comment on above: Increased risk for d iabetes: 5.7 - 6.4diabetes: >6.4glycemic control for adults with diabetes: <7.0 Result Comment: Incr eased risk for diabetes: 5.7 - 6.4 diabetes: >6.4 glycemic control for adults with diabetes: <7.0 Performed By: #### R SHANA DINERO, ALD #### [facility] , #### A1C WTH eA, BMP #### [address] Metanephrine Urine Randomon 07-13-2024 Creatinine, Random Ur 73.3 mg/dL Normal Not Estab. [facility] Comment on above: Performed By: #### R SHANA DINERO, ALD #### [facility] , #### A1C WTH eA, BMP #### [address] Metanephrine Random Urine 49 Normal Undefined [facility] Comment on above: Result Comment: This test was developed and its performance characteristics determined by [facility]. It has not been cleared or approved by the Food and Drug Administration. Performed By: #### R SHANA DINERO, ALD #### [facility] , #### A1C WTH eA, BMP #### [address] Metanephrine/Creatinin e Ratio 0.4 Normal 0.0-1.0 [facility] Comment on above: Result Comment: Resu lt Units: ug/mg Creat Performed at: [facility] [address] [id number] Material Cutter: John Mandel MD, Phone: [phone] Performed By: #### R ENACT, UMETRA, ALD #### [facility] , #### A1C WTH eA, BMP #### [facility] [address] Normetanephrine Random Urine 199 Normal Undefined [facility] Comment on above: Result Comment: This test was developed and its performance characteristics determined by [facility]. It has not been cleared or approved by the Food and Drug Administration. PERFORMED BY: [place] [address] PATHOLOGIST SOFTWARE TEST MANAGER SEBASTIAN SIMMS M.D. Performed By: #### R ENACT, UMETRA, ALD #### [facility] , #### A1C WTH eA, BMP #### [facility] [address] Metanephrines [Mass/volume] in 24 hour UrineOrdered By: Daniel Gloria on 07-13-2024 Metanephrines (24H U) [Mass/Vol] Metanephrines [Mass/volume] in 24 hour Urine Undefined [facility] Comment on above: This test was develo ped and its performance characteristicsdetermined by [facility]. It has not been cleared orapproved by the Food and Drug Administration. Metanephrines (24H U) [Mass/Vol] 49 ug/L Undefined [facility] Comment on above: This test was develo ped and its performance characteristicsdetermined by [facility]. It has not been cleared orapproved by the Food and Drug Administration. Metanephrines/Creatinine [Ma ss Ratio] in UrineOrdered By: Daniel Gloria on 07-13-2024 Metanephrines/Creatini ne (U) [Mass ratio] Metanephrines/Creatinine [Mass Ratio] in Urine 0.0-1.0 [facility] Comment on above: Result Units: ug/mg CreatPerformed at: [facility] - [facility] [id number] Director: John Mandel MD, Phone: [phone] Metanephrines/Creatini ne (U) [Mass ratio] 0.4 0.0-1.0 [facility] Comment on above: Result Units: ug/mg CreatPerformed at: - [facility] [id number] Director: John Mandel MD, Phone: [phone] No Panel InformationOrdered By: Daniel Gloria on 07-13-2024 Estimated GFR (CKD-EPI) 29.915 mL/Min [facility] Creatinine Clearance (Chem N/A [facility] Normetanephrine [Mass/volume ] in 24 hour UrineOrdered By: Daniel Gloria on 07-13-2024 Normetanephrine (24H U) [Mass/Vol] Normetanephrine [Mass/volume] in 24 hour Urine [facility] Comment on above: This test was develo ped and its performance characteristicsdetermined by [facility]. It has not been cleared orapproved by the Food and Drug Administration. Normetanephrine (24H U) [Mass/Vol] 199 ug/L Undefined [facility] Comment on above: This test was develo ped and its performance characteristicsdetermined by [facility]. It has not been cleared orapproved by the Food and Drug Administration. Potassium [Moles/volume] in Serum or PlasmaOrdered By: Daniel Gloria on 07-13-2024 Potassium [Moles/Vol] Potassium [Moles/v olume] in Serum or Plasma 3.5-5.1 [facility] Potassium [Moles/Vol] 3.8 mmol/L Normal 3.5-5.1 [facility] Comment on above: Performed By: #### R ENACT, UMETRA, ALD #### [facility] , #### A1C WTH eA, BMP #### [facility] [address] [place] [address] Renin Activityon 07-13-2024 Renin Activity 0.247 Normal 0.167-5.38 0 [facility] Comment on above: Result Comment: This test was developed and its performance characteristics determined by [facility]. It has not been cleared or approved by the Food and Drug Administration. Performed at: [address] [id number] Material Cutter: Jhon Mandel MD, Phone: [phone] PERFORMED BY: [place] [address] PATHOLOGIST SOFTWARE TEST MANAGER SEBASTIAN SIMMS M.D. Performed By: #### R ENACT, UMETRA, ALD #### [facility] , #### A1C WTH eA, BMP #### [address] Renin activityOrdered By: Trino Gloria on 07-13-2024 Renin (P) [Catalytic activity/Vol] Renin activity 0.167-5.38 0 [facility] Comment on above: This test was develo ped and its performance characteristicsdetermined by [facility]. It has not been cleared orapproved by the Food and Drug Administration.Performed at: [address] [id number] Director: John Mandel MD, Phone: [phone] Renin (P) [Catalytic activity/Vol] 0.247 ng/mL/hr 0.167-5.38 0 [facility] Comment on above: This test was develo ped and its performance characteristicsdetermined by [facility]. It has not been cleared orapproved by the Food and Drug Administration.Performed at: [address] [id number] Director: John Mandel MD, Phone: [phone] Serum or plasma aldosterone measurement (mass/volume)Ordered By: Daniel Gloria on 07-13-2024 Aldosterone [Mass/Vol] Serum or plasma a ldosterone measurement (mass/volume) 0.0-30.0 [facility] Comment on above: This test was develo ped and its performance characteristicsdetermined by [facility]. It has not been cleared orapproved by the Food and Drug Administration.Performed at: - [facility] [id number] Director: John Mandel MD, Phone: [phone] Aldosterone [Mass/Vol] 8.6 ng/dL 0.0-30.0 [facility] Comment on above: This test was develo ped and its performance characteristicsdetermined by [facility]. It has not been cleared orapproved by the Food and Drug Administration.Performed at: - [facility] [id number] Director: John Mandel MD, Phone: [phone] Serum or plasma anion gap de terminationOrdered By: Daniel Gloria on 07-13-2024 Anion gap [Moles/Vol] Serum or plasma an ion gap determination 6.0-15.0 [facility] Anion gap [Moles/Vol] 11.8 mmol/L Normal 6.0-15.0 [facility] Comment on above: Performed By: #### R KASHTSHANA, ALD #### [facility] , #### A1C WTH eA, BMP #### [facility] [address] [place] [address] [place] Sodium [Moles/volume] in Ser um or PlasmaOrdered By: Daniel Gloria on 07-13-2024 Sodium [Moles/Vol] Sodium [Moles/volume ] in Serum or Plasma 136-145 [facility] Sodium [Moles/Vol] 138 mmol/L Normal 136-145 [facility] Comment on above: Performed By: #### R ENACTKATHYETRA, ALD #### [facility] , #### A1C WT eA, BMP #### [facility] [address] [place] [address] [place] Urea nitrogen [Mass/volume] in Serum or PlasmaOrdered By: Daniel Gloria on 07-13-2024 Urea nitrogen [Mass/Vol] Urea nitrogen [Mass/volume] in Serum or Plasma High 7-25 [facility] Urea nitrogen [Mass/Vol] 40 mg/dL High 7-25 [facility] Comment on above: Performed By: #### R ENACT, UMETRA, ALD #### [facility] , #### A1C WT eA, BMP #### [address] Urine creatinine measurement (mass/volume)Ordered By: Daniel Gloria on 07-13-2024 Creatinine (U) [Mass/Vol] Creatinine [Mass/volume] in Urine Not Estab. [facility] Creatinine (U) [Mass/Vol] 73.3 mg/dL Not Estab. [facility] ECG *CARDIOLOGY ONLY*on 07-08-2024 FPG ECG *CARDIOLOGY ONLY* [facility] Main [place] [address] [place] [address] Electrocardiograph Report Signed Patient: Suresh Vallejo MR#: [id number] 0 : 1975 Acct:[id number] Age/Sex: 49 / M ADM Date: 07/08/24 [facility] Attending Dr: Daniel Gloria MD Ordering Provider: [...] previous ECGs available Confirmed by Daniel Gloria ([id number]) on 07/08/2024 4:29:16 PM Referred By: Electronically Signed By: Daniel Gloria Transcribed By: MUS Signed By Daniel Gloria MD 07/08/24 0334 Normal [facility] Basophils Auto (Bld) [#/Vol] on 02-09-2024 Basophils (Bld) [#/Vol] Automated basophil count 0.0-0.1 [facility] Basophils/100 WBC Auto (Bld) on 02-09-2024 Basophils/100 WBC (Bld) Automated basophil % 0.2-2.0 [facility] Eosinophils/100 WBC Auto (Bl d)on 02-09-2024 Eosinophils/100 WBC (Bld) Automated eosinophil % 0.9-7.0 [facility] Erythrocyte distribution wid th Auto (RBC) [Ratio]on 02-09-2024 Erythrocyte distribution width (RBC) [Ratio] Erythrocyte distribution width [Ratio] by Automated count 11.0-15.0 [facility] Estimated glomerular filtrat ion rate (GFR) non- Americanon 02-09-2024 GFR/1.73 sq M.predicted among non-blacks MDRD (S/P/Bld) [Vol rate/Area] Estimated glomerular filtration rate (GFR) non- Low >=60 mL/min/1.7 3m 2 [facility] Hematocrit Auto (Bld) [Volum e fraction]on 02-09-2024 Hematocrit (Bld) [Volume fraction] Hematocrit [Volume Fraction] of Blood by Automated count Low 42.0-54.0 [facility] Hemoglobin [Mass/volume] in Bloodon 02-09-2024 Hemoglobin (Bld) [Mass/Vol] Hemoglobin [Mass/volume] in Blood Low 14.0-18.0 [facility] Laboratory - Chemistry and C hemistry - challengeon 02-09-2024 Calcium [Mass/Vol] 8.6 mg/dL 8.5-10.1 [facility] Chloride [Moles/Vol] 109 mmol/L High 98-107 [facility] CO2 [Moles/Vol] 24.4 mmol/L 21.0-32.0 [facility] Creatinine [Mass/Vol] 2.50 mg/dL High 0.70-1.30 [facility] GFR/1.73 sq M.predicted MDRD (S/P/Bld) [Vol rate/Area] 33 mL/min/{1.73_m2} Low >=60 mL/min/1.7 3m 2 [facility] Glucose [Mass/Vol] 81 mg/dL 74-106 [facility] Natriuretic peptide B (Bld) [Mass/Vol] 1600.0 pg/mL Critically high <=900.0 [facility] Comment on above: RESULTS CALLED TO LAZ VELASQUEZ RN @BY Kim [place] [phone] Potassium [Moles/Vol] 4.3 mmol/L 3.5-5.1 [facility] Sodium [Moles/Vol] 144 mmol/L 136-145 [facility] Urea nitrogen [Mass/Vol] 38.0 mg/dL High 7.0-18.0 [facility] Urea nitrogen/Creatinine [Mass ratio] 15.2 mg/mg [facility] Laboratory - Hematology and Cell countson 02-09-2024 Immature granulocytes/100 WBC (Bld) 0.1 % 0.0-0.5 [facility] Leukocytes [#/volume] correc miguel for nucleated erythrocytes in Blood by Automated counon 02-09-2024 WBC corrected for nucl RBC Auto (Bld) [#/Vol] Leukocytes [#/volume] corrected for nucleated erythrocytes in Blood by Automated coun 4.0-11.0 [facility] Lymphocytes Auto (Bld) [#/Vo l]on 02-09-2024 Lymphocytes (Bld) [#/Vol] Lymphocytes [#/volume] in Blood by Automated count 1.2-3.8 [facility] Lymphocytes/100 WBC Auto (Bl d)on 02-09-2024 Lymphocytes/100 WBC (Bld) Lymphocytes/100 leukocytes in Blood by Automated count 20.5-60.0 [facility] MCH Auto (RBC) [Entitic mass ]on 02-09-2024 MCH (RBC) [Entitic mass] MCH [Entitic mass] by Automated count 25.9-34.0 [facility] MCHC Auto (RBC) [Mass/Vol]on 02-09-2024 MCHC (RBC) [Mass/Vol] MCHC [Mass/volume] by Automated count 29.9-35.2 [facility] MCV Auto (RBC) [Entitic vol] on 02-09-2024 MCV (RBC) [Entitic vol] MCV [Entitic volume] by Automated count 80.0-94.0 [facility] Monocytes Auto (Bld) [#/Vol] on 02-09-2024 Monocytes (Bld) [#/Vol] Automated blood monocyte count 0.3-0.8 [facility] Monocytes/100 WBC Auto (Bld) on 02-09-2024 Monocytes/100 WBC (Bld) Automated monocyte % 1.7-12.0 [facility] Neutrophils Auto (Bld) [#/Vo l]on 02-09-2024 Neutrophils (Bld) [#/Vol] Neutrophils [#/volume] in Blood by Automated count 1.4-6.5 [facility] Neutrophils/100 WBC Auto (Bl d)on 02-09-2024 Neutrophils/100 WBC (Bld) Automated neutrophil % 43.0-75.0 [facility] No Panel Informationon 02-08 Eosinophils # (Auto) 0.4 10 3/uL 0.0-0.7 [facility] Immature Granulocyte # (Auto) 0.01 10 3/uL 0.00-0.03 [facility] Platelet mean volume Auto (B ld) [Entitic vol]on 02-09-2024 Platelet mean volume (Bld) [Entitic vol] Platelet mean volume [Entitic volume] in Blood by Automated count 9.5-13.5 [facility] Platelets Auto (Bld) [#/Vol] on 02-09-2024 Platelets (Bld) [#/Vol] Platelets [#/volume] in Blood by Automated count 150-450 [facility] RBC Auto (Bld) [#/Vol]on RBC (Bld) [#/Vol] Erythrocytes [#/volu me] in Blood by Automated count Low 4.70-6.10 [facility] Serum or plasma anion gap de terminationon 02-09-2024 Anion gap [Moles/Vol] Serum or plasma an ion gap determination [facility] Activated partial thrombopla stin time (aPTT) in platelet poor plasma by coagulation aon 02-08-2024 aPTT Coag (PPP) [Time] Activated partial thromboplastin time (aPTT) in platelet poor plasma by coagulation a 22.3-36.2 [facility] Basophils Auto (Bld) [#/Vol] on 02-08-2024 Basophils (Bld) [#/Vol] Automated basophil count 0.0-0.1 [facility] Basophils/100 WBC Auto (Bld) on 02-08-2024 Basophils/100 WBC (Bld) Automated basophil % 0.2-2.0 [facility] Eosinophils/100 WBC Auto (Bl d)on 02-08-2024 Eosinophils/100 WBC (Bld) Automated eosinophil % 0.9-7.0 [facility] Erythrocyte distribution wid th Auto (RBC) [Ratio]on 02-08-2024 Erythrocyte distribution width (RBC) [Ratio] Erythrocyte distribution width [Ratio] by Automated count 11.0-15.0 [facility] Estimated glomerular filtrat ion rate (GFR) non- Americanon 02-08-2024 GFR/1.73 sq M.predicted among non-blacks MDRD (S/P/Bld) [Vol rate/Area] Estimated glomerular filtration rate (GFR) non- Low >=60 mL/min/1.7 3m 2 [facility] Globulin Calc (S) [Mass/Vol] on 02-08-2024 Globulin (S) [Mass/Vol] Serum globulin measurement by calculation (mass/volume) [facility] Hematocrit Auto (Bld) [Volum e fraction]on 02-08-2024 Hematocrit (Bld) [Volume fraction] Hematocrit [Volume Fraction] of Blood by Automated count Low 42.0-54.0 [facility] Hemoglobin [Mass/volume] in Bloodon 02-08-2024 Hemoglobin (Bld) [Mass/Vol] Hemoglobin [Mass/volume] in Blood Low 14.0-18.0 [facility] INR in Platelet poor plasma by Coagulation assayon 02-08-2024 INR Coag (PPP) [Relative time] INR in Platelet poor plasma by Coagulation assay [facility] Comment on above: DESIRED INR:2.0-3.0 CONDITIONS NOT LISTED BELOW2.5-3.5 FOR PROSTHETIC HEART VALVE REPLACEMENT2.5-3.5 RECURRENT THROMBOSIS Laboratory - Chemistry and C hemistry - challengeon 02-08-2024 Albumin [Mass/Vol] 2.6 g/dL Low 3.4-5.0 [facility] ALP [Catalytic activity/Vol] 98 U/L 46-116 [facility] ALT [Catalytic activity/Vol] 26 U/L 16-63 [facility] AST [Catalytic activity/Vol] 19 U/L 15-37 [facility] Bilirubin [Mass/Vol] 0.6 mg/dL 0.2-1.0 [facility] Calcium [Mass/Vol] 8.8 mg/dL 8.5-10.1 [facility] Chloride [Moles/Vol] 109 mmol/L High 98-107 [facility] CO2 [Moles/Vol] 23.6 mmol/L 21.0-32.0 [facility] Creatinine [Mass/Vol] 2.55 mg/dL High 0.70-1.30 [facility] GFR/1.73 sq M.predicted MDRD (S/P/Bld) [Vol rate/Area] 32 mL/min/{1.73_m2} Low >=60 mL/min/1.7 3m 2 [facility] Glucose [Mass/Vol] 82 mg/dL 74-106 [facility] Magnesium [Mass/Vol] 1.9 mg/dL 1.8-2.4 [facility] Natriuretic peptide B (Bld) [Mass/Vol] 4053.0 pg/mL Critically high <=900.0 [facility] Comment on above: RESULTS CALLED TO DONALDO SANTO RN @BY Kim Madrid at 0731 Potassium [Moles/Vol] 3.9 mmol/L 3.5-5.1 [facility] Protein [Mass/Vol] 7.1 g/dL 6.4-8.2 [facility] Sodium [Moles/Vol] 143 mmol/L 136-145 [facility] T4 [Mass/Vol] 6.90 ug/dL 4.50-12.10 [facility] TSH Qn 2.921 m[IU]/L 0.358-3.74 0 [facility] Urea nitrogen [Mass/Vol] 36.0 mg/dL High 7.0-18.0 [facility] Urea nitrogen/Creatinine [Mass ratio] 14.1 mg/mg [facility] Laboratory - Hematology and Cell countson 02-08-2024 Immature granulocytes/100 WBC (Bld) 0.1 % 0.0-0.5 [facility] Leukocytes [#/volume] correc miguel for nucleated erythrocytes in Blood by Automated counon 02-08-2024 WBC corrected for nucl RBC Auto (Bld) [#/Vol] Leukocytes [#/volume] corrected for nucleated erythrocytes in Blood by Automated coun 4.0-11.0 [facility] Lymphocytes Auto (Bld) [#/Vo l]on 02-08-2024 Lymphocytes (Bld) [#/Vol] Lymphocytes [#/volume] in Blood by Automated count 1.2-3.8 [facility] Lymphocytes/100 WBC Auto (Bl d)on 02-08-2024 Lymphocytes/100 WBC (Bld) Lymphocytes/100 leukocytes in Blood by Automated count 20.5-60.0 [facility] MCH Auto (RBC) [Entitic mass ]on 02-08-2024 MCH (RBC) [Entitic mass] MCH [Entitic mass] by Automated count 25.9-34.0 [facility] MCHC Auto (RBC) [Mass/Vol]on 02-08-2024 MCHC (RBC) [Mass/Vol] MCHC [Mass/volume] by Automated count 29.9-35.2 [facility] MCV Auto (RBC) [Entitic vol] on 02-08-2024 MCV (RBC) [Entitic vol] MCV [Entitic volume] by Automated count 80.0-94.0 [facility] Monocytes Auto (Bld) [#/Vol] on 02-08-2024 Monocytes (Bld) [#/Vol] Automated blood monocyte count 0.3-0.8 [facility] Monocytes/100 WBC Auto (Bld) on 02-08-2024 Monocytes/100 WBC (Bld) Automated monocyte % 1.7-12.0 [facility] Neutrophils Auto (Bld) [#/Vo l]on 02-08-2024 Neutrophils (Bld) [#/Vol] Neutrophils [#/volume] in Blood by Automated count 1.4-6.5 [facility] Neutrophils/100 WBC Auto (Bl d)on 02-08-2024 Neutrophils/100 WBC (Bld) Automated neutrophil % 43.0-75.0 [facility] No Panel Informationon 02-07 Eosinophils # (Auto) 0.3 10 3/uL 0.0-0.7 [facility] Immature Granulocyte # (Auto) 0.01 10 3/uL 0.00-0.03 [facility] Phosphorus Level 4.0 mg/dL 2.6-4.7 [facility] Platelet mean volume Auto (B ld) [Entitic vol]on 02-08-2024 Platelet mean volume (Bld) [Entitic vol] Platelet mean volume [Entitic volume] in Blood by Automated count 9.5-13.5 [facility] Platelets Auto (Bld) [#/Vol] on 02-08-2024 Platelets (Bld) [#/Vol] Platelets [#/volume] in Blood by Automated count 150-450 [facility] Prothrombin time (PT)on PT Coag (PPP) [Time] Prothrombin time (PT) 9.0- 11.6 [facility] RBC Auto (Bld) [#/Vol]on RBC (Bld) [#/Vol] Erythrocytes [#/volu me] in Blood by Automated count Low 4.70-6.10 [facility] Serum or plasma albumin/glob ulin mass ratioon 02-08-2024 Albumin/Globulin [Mass ratio] Serum or plasma albumin/globulin mass ratio [facility] Serum or plasma anion gap de terminationon 02-08-2024 Anion gap [Moles/Vol] Serum or plasma an ion gap determination [facility] Buprenorphine [Presence] in Urineon 02-07-2024 Buprenorphine Ql (U) Buprenorphine [Pres ence] in Urine NEGATIVE [facility] Comment on above: DRUG CLASS TEST [...] challengeon 02-07-2024 Bilirubin Ql (U) Negative NEGATIVE [facility] Glucose (U) [Mass/Vol] Negative NEGATIVE [facility] Ketones Ql (U) Negative NEGATIVE [facility] pH (U) 6.5 [pH] 5.0-9.0 [facility] Specific gravity (U) [Rel density] 1.015 1.005-1.02 5 [facility] Urobilinogen Qn (U) 0.2 {Abiola'U}/dL 0.2-1.0 [facility] Magnesium [Mass/Vol] 2.1 mg/dL 1.8-2.4 [facility] Natriuretic peptide B (Bld) [Mass/Vol] 3918.0 pg/mL Critically high <=900.0 [facility] Comment on above: RESULTS CALLED TO ER RICHIE Whitney @BY Rogelio [place] 1934 Laboratory - Drug toxicology on 02-07-2024 Amphetamines Ql (U) Negative NEGATIVE [facility] Benzodiazepines Ql (U) Negative NEGATIVE [facility] Cocaine Ql (U) Negative NEGATIVE [facility] Opiates Ql (U) Negative NEGATIVE [facility] Phencyclidine Ql (U) Negative NEGATIVE [facility] Laboratory - Specimen inform ationon 02-07-2024 Appearance (U) CLEAR CLEAR [facility] Color (U) LT. YELLOW YELLOW [facility] Laboratory - Urinalysison Leukocyte esterase Test strip Ql (U) Negative NEGATIVE [facility] Mucus Ql (Urine sed) NONE SEEN NONE SEEN [facility] Nitrite Ql (U) Negative NEGATIVE [facility] Protein Ql (U) >=300 mg/dL Abnormal NEG/TRACE [facility] Methadone [Presence] in Urin e by Screen methodon 02-07-2024 Methadone Screen Ql (U) Methadone [Presence] in Urine by Screen method NEGATIVE [facility] No Panel Informationon 02-06 Urine Bacteria TRACE #/HPF Abnormal NONE SEEN [facility] Urine Barbiturates Screen Negative NEGATIVE [facility] Urine Marijuana (THC) Screen Negative NEGATIVE [facility] Urine Methamphetamines Screen Negative NEGATIVE [facility] Urine Occult Blood SMALL Abnormal NEGATIVE [facility] Urine Other Casts NONE SEEN #/LPF NONE [facility]EN [facility] Urine Other Crystals None Seen #/HPF None Seen [facility] Urine RBC 0-2 #/HPF 0-2 [facility] Urine Squamous Epithelial Cells NONE SEEN #/LPF NONE/RARE [facility] Urine WBC 0-2 #/HPF Abnormal NONE SEEN [facility] Troponin I High Sensitivity 68.6 pg/mL 4.0-76.1 [facility] Comment on above: CUT-OFF POINTS HAVE [...] (U) [Mass/Vol] Urine tricyclic antidepressant measurement NEGATIVE [facility] oxyCODONE+oxyMORphone [Prese nce] in Urine by Screen methodon 02-07-2024 oxyCODONE+oxyMORphone Screen Ql (U) oxyCODONE+oxyMORphone [Presence] in Urine by Screen method NEGATIVE [facility] US venous duplex LE BIon US venous duplex LE BI [facility] [place] [address] Ultrasound Report Signed Patient: Suresh Vallejo MR#: [id number] 0 : 1975 Acct:[id number] Age/Sex: 49 / M ADM Date: 02/05/24 Loc: Room: Type: [facility] Attending Dr: Edvin Hastings MD Ordering Provider: [...] Edvin Hastings MD02/06/2024 4:14 PM Dictation Location: [place] [address] Tech: Oksana Lucia Transcribed By: [facility] 02/06/24 1614 Dictated By: Edvin Hastings MD 02/06/24 1613 Signed By: 02/06/24 1614 Normal [facility] US Lower Extremity Venous Du [...] MD Transcribed by: MARTINEZ Technologist: AARON [facility] US Lower Extremity Venous Du plex [...] MD Transcribed by: MARTINEZ Technologist: AARON [facility] CHEMISTRYOrdered By: SYSTEM SYSTEM on 10-10-2022 [...] 33.7 g/dL Normal 31.4 - 36.0 gm/dL [facility] HemeAutoSS MCV (RBC) [Entitic vol] 85.2 fL Normal 80.0 - 100.0 fL [facility] Platelet mean volume (Bld) [Entitic vol] 8.6 fL Normal 6.4 - 10.8 fL [facility]eAuto[facility] Platelets (Bld) [#/Vol] 316.0 E9/L Normal 150.0 - 500.0 E9/L [facility]eAuto[facility] RBC (Bld) [#/Vol] 5.3 E12/L Normal 4.3 - 5.9 E12/L [facility] WBC corrected for nucl RBC Auto (Bld) [#/Vol] 8.9 E9/L Normal 4.0 - 11.0 E9/L [facility] CBC AUTO DIFFon 02-07-2021 BASO # 0.1 103/ul Normal 0.0-0.1 [facility] Comment on above: Performed By: #### C BC #### [facility] [address] [place] [address] [address] Aubrey Tatum Basophils/100 WBC (Bld) 0.8 % Normal 0.2-2.0 [facility] Comment on above: Performed By: #### C BC #### [facility] [address] [address] [address] Aubrey Tatum EO # 0.1 103/ul Normal 0.0-0.7 [facility] Comment on above: Performed By: #### C BC #### [facility] [address] [address] [address] Aubrey Tatum Eosinophils/100 WBC (Bld) 1.3 % Normal 0.9-7.0 [facility] Comment on above: Performed By: #### C BC #### [facility] [address] [address] [address] Aubrey Tatum Erythrocyte distribution width (RBC) [Ratio] 13.6 % Normal 11.0-15.0 [facility] Comment on above: Performed By: #### C BC #### [facility] [address] [place] [address] Dr. Aubrey Tatum Hematocrit (Bld) [Volume fraction] 41.0 % Critically low 42.0-54.0 [facility] Comment on above: Performed By: #### C BC #### [facility] [address] [place] [address] Dr. Aubrey Tatum Hemoglobin (Bld) [Mass/Vol] 13.0 g/dL Critically low 14.0-18.0 [facility] Comment on above: Performed By: #### C BC #### [facility] [address] [place] [address] Dr. Aubrey Tatum IG # 0.02 10e3/ul Normal 0.00-0.03 [facility] Comment on above: Performed By: #### C BC #### [facility] [address] [place] [address] Dr. Aubrey Tatum IG % 0.2 % Normal 0.0-0.5 [facility] Comment on above: Performed By: #### C BC #### [facility] [address] [place] [address] Dr. Aubrey Tatum LYMPH # 2.0 103/ul Normal 1.2-3.8 [facility] Comment on above: Performed By: #### C BC #### [facility] [address] [place] [address] Dr. Aubrey Tatum Lymphocytes/100 WBC (Bld) 21.8 % Normal 20.5-60.0 [facility] Comment on above: Performed By: #### C BC #### [facility] [address] [place] [address] Dr. Aubrey Tatum MANUAL DIFF REQ NO Normal [facility] Comment on above: Performed By: #### C BC #### [facility] [address] [place] [address] Dr. Aubrey Tatum MCH (RBC) [Entitic mass] 28.1 pg Normal 25.9-34.0 [facility] Comment on above: Performed By: #### C BC #### [facility] [address] [address] [address] Aubrey Tatum MCHC (RBC) [Mass/Vol] 31.7 g/dL Normal 29.9-35.2 [facility] Comment on above: Performed By: #### C BC #### [facility] [address] [address] [address] Aubrey Tatum MCV (RBC) [Entitic vol] 88.7 fL Normal 80.0-94.0 [facility] Comment on above: Performed By: #### C BC #### [facility] [address] [address] [address] Aubrey Tatum MONO # 0.5 103/ul Normal 0.3-0.8 [facility] Comment on above: Performed By: #### C BC #### [facility] [address] [place] [address] Dr. Aubrey Tatum Monocytes/100 WBC (Bld) 5.7 % Normal 1.7-12.0 [facility] Comment on above: Performed By: #### C BC #### [facility] [address] [place] [address] Dr. Aubrey Tatum NEUT # 6.4 103/ul Normal 1.4-6.5 [facility] Comment on above: Performed By: #### C BC #### [facility] [address] [place] [address] Dr. Aubrey Tatum Neutrophils/100 WBC (Bld) 70.2 % Normal 43.0-75.0 [facility] Comment on above: Performed By: #### C BC #### [facility] [address] [place] [address] Dr. Aubrey Tatum Platelet mean volume (Bld) [Entitic vol] 9.6 fL Normal 9.5-13.5 [facility] Comment on above: Performed By: #### C BC #### [facility] [address] [place] [address] Dr. Aubrey Tatum PLT 334 103/ul Normal 150-450 [facility] Comment on above: Performed By: #### C BC #### [facility] [address] [place] [address] Dr. Aubrey Tatum RBC 4.62 106/ul Critically low 4.70-6.10 [facility] Comment on above: Performed By: #### C BC #### [facility] [address] [place] [address] Dr. Aubrey Tatum WBC 9.1 103/ul Normal 4.0-11.0 [facility] Comment on above: Performed By: #### C BC #### [facility] [address] [place] [address] Dr. Aubrey Tatum FREE T3on 02-07-2021 FREE T3 2.57 pg/mlL Critically low 2.77-5.27 [facility] Comment on above: Performed By: #### L IPID, CMP, FT3, TSH #### [facility] [address] [place] [address] Dr. Aubrey Tatum FREE T4on 02-07-2021 Free T4 [Mass/Vol] 0.93 ng/dL Normal 0.78-2.19 [facility] Comment on above: Performed By: #### F T4 #### [facility] [address] [place] [address] Dr. Aubrey Tatum LIPID PROFILEon 02-07-2021 CHOL-HDL RATIO NORM SEE BELOW Normal [facility] Comment on above: Result Comment: 3.3 - 4.4 LOW RISK 4.4 - 7.1 AVERAGE RISK 7.1 - 11.0 MODERATE RISK >11.0 HIGH RISK Performed By: #### L IPID, CMP, FT3, TSH #### [facility] [address] [place] [address] Dr. Aubrey Tatum Cholesterol [Mass/Vol] 155 mg/dL Normal <=200 [facility] Comment on above: Performed By: #### L IPID, CMP, FT3, TSH #### [facility] [address] [place] [address] Dr. Aubrey Tatum Cholesterol in HDL [Mass/Vol] 51 mg/dL Normal [facility] Comment on above: Performed By: #### L IPID, CMP, FT3, TSH #### [facility] [address] [address] [address] Aubrey Tatum Cholesterol in LDL [Mass/Vol] 94.2 mg/dL Normal [facility] Comment on above: Performed By: #### L IPID, CMP, FT3, TSH #### [facility] [address] [address] [address] Aubrey Tatum Cholesterol.total/Chol esterol in HDL [Mass ratio] 3.0 {ratio} Normal [facility] Comment on above: Performed By: #### L IPID, CMP, FT3, TSH #### [facility] [address] [address] [address] Aubrey Tatum HDL NORMAL > or = 60 mg/dl - LO W CARDIOVASCULAR RISK <40 mg/dl - HIGH CARDIOVASCULAR RISK Normal [facility] Comment on above: Performed By: #### L IPID, CMP, FT3, TSH #### [facility] [address] [address] [address] Aubrey Tatum LDL CALC NORMAL SEE BELOW Normal [facility] Comment on above: Result Comment: <100 mg/dl OPTIMAL 100 - 129 mg/dl NEAR OR ABOVE OPTIMAL 130 - 159 mg/dl BORDERLINE HIGH 160 - 189 mg/dl HIGH >190 mg/dl VERY HIGH Performed By: #### L IPID, CMP, FT3, TSH #### [facility] [address] [address] [address] Aubrey Tatum Triglyceride [Mass/Vol] 49 mg/dL Normal <=150 [facility] Comment on above: Performed By: #### L IPID, CMP, FT3, TSH #### [facility] [address] [address] [address] Aubrey Tatum VLDL CALC 9.8 mg/dL Normal [facility] Comment on above: Performed By: #### L IPID, CMP, FT3, TSH #### [facility] [address] [address] [address] Aubrey Tatum PROF 14(COMP METB)on 021 Albumin [Mass/Vol] 3.1 g/dL Critically low 3.5-5.0 [facility] Comment on above: Performed By: #### L IPID, CMP, FT3, TSH #### [facility] [address] [place] [address] Dr. Aubrey Tatum Albumin/Globulin [Mass ratio] 0.7 {ratio} Normal [facility] Comment on above: Performed By: #### L IPID, CMP, FT3, TSH #### [facility] [address] [place] [address] Dr. Aubrey Tatum ALP [Catalytic activity/Vol] 86 U/L Normal 38-126 [facility] Comment on above: Performed By: #### L IPID, CMP, FT3, TSH #### [facility] [address] [place] [address] Dr. Aubrey Tatum ALT [Catalytic activity/Vol] 45 U/L Normal 21-72 [facility] Comment on above: Performed By: #### L IPID, CMP, FT3, TSH #### [facility] [address] [place] [address] Dr. Aubrey Tatum Anion gap [Moles/Vol] 11.7 mmol/L Normal Th [facility] Comment on above: Performed By: #### L IPID, CMP, FT3, TSH #### [facility] [address] [place] [address] Dr. Aubrey Tatum AST [Catalytic activity/Vol] 26 U/L Normal 17-59 [facility] Comment on above: Performed By: #### L IPID, CMP, FT3, TSH #### [facility] [address] [place] [address] Dr. Aubrey Tatum Bilirubin [Mass/Vol] 0.4 mg/dL Normal 0.2-1.3 [facility] Comment on above: Performed By: #### L IPID, CMP, FT3, TSH #### [facility] [address] [place] [address] Dr. Aubrey Tatum Calcium [Mass/Vol] 9.0 mg/dL Normal 8.4-10.2 [facility] Comment on above: Performed By: #### L IPID, CMP, FT3, TSH #### [facility] [address] [place], [place] [id number] Dr. Aubrey Tatum Chloride [Moles/Vol] 103 mmol/L Normal 98-107 [facility] Comment on above: Performed By: #### L IPID, CMP, FT3, TSH #### [facility] [address] [place] [address] Dr. Aubrey Tatum CO2 [Moles/Vol] 27.9 mmol/L Normal 22.0-30.0 [facility] Comment on above: Performed By: #### L IPID, CMP, FT3, TSH #### [facility] [address] [address] [address] Aubrey Tatum Creatinine [Mass/Vol] 1.31 mg/dL Critically high 0.66-1.25 [facility] Comment on above: Performed By: #### L IPID, CMP, FT3, TSH #### [facility] [address] [place] [address] Dr. Aubrey Tatum EGFR-AF MAURITIAN >60 Normal >=60 [facility] Comment on above: Performed By: #### L IPID, CMP, FT3, TSH #### [facility] [address] [place] [address] Dr. Aubrey Tatum EGFR-NON AF MAURITIAN 58 mL/min/1.73m2 Critically low >=60 [facility] Comment on above: Performed By: #### L IPID, CMP, FT3, TSH #### [facility] [address] [place] [address] Dr. Aubrey Tatum Globulin (S) [Mass/Vol] 4.5 g/dL Normal [facility] Comment on above: Performed By: #### L IPID, CMP, FT3, TSH #### [facility] [address] [address] [address] Aubrey Tatum Glucose [Mass/Vol] 85 mg/dL Normal 74-106 [facility] Comment on above: Performed By: #### L IPID, CMP, FT3, TSH #### [facility] [address] [place] [address] Dr. Aubrey Tatum Potassium [Moles/Vol] 3.6 mmol/L Normal 3.4-5.0 [facility] Comment on above: Performed By: #### L IPID, CMP, FT3, TSH #### [facility] [address] [place] [address] Dr. Aubrey Tatum Protein [Mass/Vol] 7.6 g/dL Normal 6.1-8.2 [facility] Comment on above: Performed By: #### L IPID, CMP, FT3, TSH #### [facility] [address] [place] [address] Dr. Aubrey Tatum Sodium [Moles/Vol] 139 mmol/L Normal 137-145 [facility] Comment on above: Performed By: #### L IPID, CMP, FT3, TSH #### [facility] [address] [place] [address] Dr. Aubrey Tatum Urea nitrogen [Mass/Vol] 26.0 mg/dL Critically high 9.0-20.0 [facility] Comment on above: Performed By: #### L IPID, CMP, FT3, TSH #### [facility] [address] [place] [address] Dr. Aubrey Tatum Urea nitrogen/Creatinine [Mass ratio] 19.8 mg/mg Normal [facility] Comment on above: Performed By: #### L IPID, CMP, FT3, TSH #### [facility] [address] [place] [address] Dr. Aubrey Tatum TSHon 02-07-2021 TSH 2.234 uIU/mL Normal 0.470-4.68 0 [facility] Comment on above: Performed By: #### L IPID, CMP, FT3, TSH #### [facility] [address] [place] [address] Dr. Aubrey Tatum TSH RANGE SEE BELOW Normal [facility] Comment on above: Result Comment: <0.3 4 UIU/ml HYPERTHYROID 0.34-5.60 UIU/ml EUTHYROID >5.60 UIU/ml HYPOTHYROID Performed By: #### L IPID, CMP, FT3, TSH #### [facility] [address] [place] [address] Dr. Aubrey Tatum Vital Signs Date Time Vital Sign Value Performing Clinician Facility 11-09-2024 14:03-0400 Body height 177.8 cm Juvencio Rosa DO Work Phone: [facility] 11-09-2024 14:03-0400 Body mass index (BMI) [Ratio] 53.6 kg/m2 Juvencio Rosa DO Work Phone: [facility] 11-09-2024 14:03-0400 Body temperature 98 [degF] Juvencio Rosa DO Work Phone: [facility] 11-09-2024 14:03-0400 Body weight 169.64 kg Juvencio Rosa DO Work Phone: [facility] 11-09-2024 14:03-0400 Diastolic blood pressure 79 mm[Hg] Juvencio Rosa DO Work Phone: [facility] 11-09-2024 14:03-0400 Heart rate 77 /min Juvencio Rosa DO Work Phone: [facility] 11-09-2024 14:03-0400 Systolic blood pressure 139 mm[Hg] Juvencio Rosa DO Work Phone: [facility] 11-03-2024 14:42-0400 Body height 177.8 cm Juvencio Rosa DO Work Phone: [facility] 11-03-2024 14:42-0400 Body mass index (BMI) [Ratio] 53.6 kg/m2 Juvencio Rosa DO Work Phone: [facility] 11-03-2024 14:42-0400 Body temperature 98.2 [degF] Juvencio Rosa DO Work Phone: [facility] 11-03-2024 14:42-0400 Body weight 169.41 kg Juvencio Rosa DO Work Phone: [facility] 11-03-2024 14:42-0400 Diastolic blood pressure 80 mm[Hg] Juvencio Rosa DO Work Phone: [facility] 11-03-2024 14:42-0400 Heart rate 68 /min Juvencio Rosa DO Work Phone: [facility] 11-03-2024 14:42-0400 Respiratory rate 20 /min Juvencio Rosa DO Work Phone: [facility] 11-03-2024 14:42-0400 SaO2% (BldA) [Mass fraction] 98 % Juvencio Rosa DO Work Phone: [facility] 11-03-2024 14:42-0400 Systolic blood pressure 150 mm[Hg] Juvencio Rosa DO Work Phone: [facility] 09-24-2024 15:38-0400 Body temperature 97.5 [degF] Juvencio Rosa DO Work Phone: [facility] 09-24-2024 15:38-0400 Diastolic blood pressure 98 mm[Hg] Juvencio Rosa DO Work Phone: [facility] 09-24-2024 15:38-0400 Heart rate 78 /min Juvencio Rosa DO Work Phone: [facility] 09-24-2024 15:38-0400 SaO2% (BldA) [Mass fraction] 97 % Juvencio Rosa DO Work Phone: [facility] 09-24-2024 15:38-0400 Systolic blood pressure 190 mm[Hg] Juvencio Rosa DO Work Phone: [facility] 09-17-2024 15:37-0400 Body height 177.8 cm Juvencio Rosa DO Work Phone: [facility] 09-17-2024 15:37-0400 Body mass index (BMI) [Ratio] 55.1 kg/m2 Juvencio Rosa DO Work Phone: [facility] 09-17-2024 15:37-0400 Body temperature 99 [degF] Juvencio Rosa DO Work Phone: [facility] 09-17-2024 15:37-0400 Body weight 174.34 kg Juvencio Rosa DO Work Phone: [facility] 09-17-2024 15:37-0400 Diastolic blood pressure 100 mm[Hg] Juvencio Rosa DO Work Phone: [facility] 09-17-2024 15:37-0400 Heart rate 74 /min Juvencio Rosa DO Work Phone: [facility] 09-17-2024 15:37-0400 Respiratory rate 18 /min Juvencio Rosa DO Work Phone: [facility] 09-17-2024 15:37-0400 SaO2% (BldA) [Mass fraction] 96 % Juvencio Rosa DO Work Phone: [facility] 09-17-2024 15:37-0400 Systolic blood pressure 152 mm[Hg] Juvencio Rosa DO Work Phone: [facility] 07-08-2024 15:21-0400 Body height 177.8 cm Juvencio Rosa DO Work Phone: [facility] 07-08-2024 15:21-0400 Body mass index (BMI) [Ratio] 55.2 kg/m2 Juvencio Rosa DO Work Phone: [facility] 07-08-2024 15:21-0400 Body weight 174.63 kg Juvencio Rosa DO Work Phone: [facility] 07-08-2024 15:21-0400 Diastolic blood pressure 80 mm[Hg] Juvencio Rosa DO Work Phone: [facility] 07-08-2024 15:21-0400 Heart rate 95 /min Juvencio Rosa DO Work Phone: [facility] 07-08-2024 15:21-0400 Respiratory rate 18 /min Juvencio Rosa DO Work Phone: [facility] 07-08-2024 15:21-0400 SaO2% (BldA) [Mass fraction] 95 % Juvencio Rosa DO Work Phone: [facility] 07-08-2024 15:21-0400 Systolic blood pressure 128 mm[Hg] Juvencio Rosa DO Work Phone: [facility] 06-18-2024 15:39-0400 Body height 177.8 cm Juvencio Rosa DO Work Phone: [facility] 06-18-2024 15:39-0400 Body mass index (BMI) [Ratio] 54.1 kg/m2 Juvencio Rosa DO Work Phone: [facility] 06-18-2024 15:39-0400 Body temperature 97.5 [degF] Juvencio Rosa DO Work Phone: [facility] 06-18-2024 15:39-0400 Body weight 171 kg Juvencio Rosa DO Work Phone: [facility] 06-18-2024 15:39-0400 Diastolic blood pressure 78 mm[Hg] Juvencio Rosa DO Work Phone: [facility] 06-18-2024 15:39-0400 Heart rate 60 /min Juvencio Rosa DO Work Phone: [facility] 06-18-2024 15:39-0400 SaO2% (BldA) [Mass fraction] 99 % Juvencio Rosa DO Work Phone: [facility] 06-18-2024 15:39-0400 Systolic blood pressure 160 mm[Hg] Juvencio Rosa DO Work Phone: [facility] 06-10-2024 15:34-0400 Body height 177.8 cm [facility] 06-10-2024 15:34-0400 Body mass index (BMI) [Ratio] 54.2 kg/m2 [facility] 06-10-2024 15:34-0400 Body temperature 97.8 [degF] [facility] 06-10-2024 15:34-0400 Body weight 171.45 kg [facility] 06-10-2024 15:34-0400 Diastolic blood pressure 100 mm[Hg] [facility] 06-10-2024 15:34-0400 Heart rate 62 /min [facility] 06-10-2024 15:34-0400 Respiratory rate 18 /min [facility] 06-10-2024 15:34-0400 SaO2% (BldA) [Mass fraction] 98 % [facility] 06-10-2024 15:34-0400 Systolic blood pressure 142 mm[Hg] [facility] 03-11-2024 15:38-0500 Body height 177.8 cm Juvencio Rosa DO Work Phone: [facility] 03-11-2024 15:38-0500 Body mass index (BMI) [Ratio] 52.6 kg/m2 Juvencio Rosa DO Work Phone: [facility] 03-11-2024 15:38-0500 Body temperature 97.2 [degF] Juvencio Rosa DO Work Phone: [facility] 03-11-2024 15:38-0500 Body weight 166.46 kg Juvencio Rosa DO Work Phone: [facility] 03-11-2024 15:38-0500 Diastolic blood pressure 88 mm[Hg] Juvencio Rosa DO Work Phone: [facility] 03-11-2024 15:38-0500 Heart rate 62 /min Juvencio Rosa DO Work Phone: [facility] 03-11-2024 15:38-0500 Respiratory rate 18 /min Juvencio Rosa DO Work Phone: [facility] 03-11-2024 15:38-0500 SaO2% (BldA) [Mass fraction] 97 % Juvencio Rosa DO Work Phone: [facility] 03-11-2024 15:38-0500 Systolic blood pressure 122 mm[Hg] Juvencio Rosa DO Work Phone: [facility] 02-10-2024 15:08-0500 Body height 177.8 cm Juvencio Rosa DO Work Phone: [facility] 02-10-2024 15:08-0500 Body mass index (BMI) [Ratio] 54.5 kg/m2 Juvencio Rosa DO Work Phone: [facility] 02-10-2024 15:08-0500 Body temperature 98.2 [degF] Juvencio Rosa DO Work Phone: [facility] 02-10-2024 15:08-0500 Body weight 172.36 kg Juvencio Rosa DO Work Phone: [facility] 02-10-2024 15:08-0500 Diastolic blood pressure 112 mm[Hg] Juvencio Rosa DO Work Phone: [facility] 02-10-2024 15:08-0500 Heart rate 59 /min Juvencio Rosa DO Work Phone: [facility] 02-10-2024 15:08-0500 Respiratory rate 18 /min Juvencio Rosa DO Work Phone: [facility] 02-10-2024 15:08-0500 SaO2% (BldA) [Mass fraction] 99 % Juvencio Rosa DO Work Phone: [facility] 02-10-2024 15:08-0500 Systolic blood pressure 170 mm[Hg] Juvencio Rosa DO Work Phone: [facility] 01-16-2024 15:20-0500 Body height 177.8 cm [facility] 01-16-2024 15:20-0500 Body mass index (BMI) [Ratio] 52.4 kg/m2 [facility] 01-16-2024 15:20-0500 Body temperature 97.8 [degF] [facility] 01-16-2024 15:20-0500 Body weight 166 kg [facility] 01-16-2024 15:20-0500 Diastolic blood pressure 78 mm[Hg] [facility] 01-16-2024 15:20-0500 Heart rate 72 /min [facility] 01-16-2024 15:20-0500 Respiratory rate 16 /min [facility] 01-16-2024 15:20-0500 SaO2% (BldA) [Mass fraction] 98 % [facility] 01-16-2024 15:20-0500 Systolic blood pressure 124 mm[Hg] [facility] 2024 15:17-0400 Body height 177.8 cm [facility] 2024 15:17-0400 Body mass index (BMI) [Ratio] 52.4 kg/m2 [facility] 2024 15:17-0400 Body temperature 98.6 [degF] [facility] 2024 15:17-0400 Body weight 166 kg [facility] 2024 15:17-0400 Diastolic blood pressure 94 mm[Hg] [facility] 2024 15:17-0400 Heart rate 74 /min [facility] 2024 15:17-0400 Respiratory rate 16 /min [facility] 2024 15:17-0400 SaO2% (BldA) [Mass fraction] 98 % [facility] 2024 15:17-0400 Systolic blood pressure 158 mm[Hg] [facility] 12-25-2023 15:18-0400 Diastolic blood pressure 100 mm[Hg] [facility] 12-25-2023 15:18-0400 Systolic blood pressure 152 mm[Hg] [facility] 12-25-2023 15:15-0400 Body height 177.8 cm [facility] 12-25-2023 15:15-0400 Body mass index (BMI) [Ratio] 52.6 kg/m2 [facility] 12-25-2023 15:15-0400 Body weight 166.46 kg [facility] 12-25-2023 15:15-0400 Heart rate 70 /min [facility] 12-25-2023 15:15-0400 Respiratory rate 18 /min [facility] 12-25-2023 15:15-0400 SaO2% (BldA) [Mass fraction] 98 % [facility] 11-06-2022 16:30-0400 Body height 177.8 cm Juvencio Rosa Other [facility] [employer] Other 11-06-2022 16:30-0400 Body mass index (BMI) [Ratio] 49.93 kg/m2 Juvencio Rosa Other [employer] [facility] [employer] Other 11-06-2022 16:30-0400 Body temperature 97.7 [degF] Juvencio Rosa Other [employer] Other 11-06-2022 16:30-0400 Body weight 157.85 kg Juvencio Rosa Other [employer] Other 11-06-2022 16:30-0400 Diastolic blood pressure 74 mm[Hg] Juvencio Rosa Other [employer] Other 11-06-2022 16:30-0400 Respiratory rate 20 /min Juvencio Rosa Other [employer] Other 11-06-2022 16:30-0400 SaO2% (BldA) [Mass fraction] 97 % Juvencio Rosa Other [employer] Other 11-06-2022 16:30-0400 Systolic blood pressure 170 mm[Hg] Juvencio Rosa Other [employer] Other 10-24-2022 15:15-0400 Body height 177.8 cm Michelle Ibeth Other [employer] Other 10-24-2022 15:15-0400 Body mass index (BMI) [Ratio] 50.64 kg/m2 Michelle Ibeth Other [employer] Other 10-24-2022 15:15-0400 Body weight 160.12 kg Michelle Ibeth Other [employer] Other 10-24-2022 15:15-0400 Diastolic blood pressure 95 mm[Hg] Michelle Ibeth Other [employer] Other 10-24-2022 15:15-0400 SaO2% (BldA) [Mass fraction] 97 % Michelle Ibeth Other [employer] Other 10-24-2022 15:15-0400 Systolic blood pressure 153 mm[Hg] Michelle Ibeth Other [employer] Other 05-02-2022 16:30-0500 Body height 177.8 cm Juvencio Rosa Other [employer] Other 05-02-2022 16:30-0500 Body mass index (BMI) [Ratio] 53.94 kg/m2 Juvencio Rosa Other [employer] Other 05-02-2022 16:30-0500 Body temperature 97.5 [degF] Juvencio Rosa Other [employer] Other 05-02-2022 16:30-0500 Body weight 170.55 kg Juvencio Rosa Other [employer] Other 05-02-2022 16:30-0500 Diastolic blood pressure 90 mm[Hg] Juvencio Rosa Other [employer] Other 05-02-2022 16:30-0500 Respiratory rate 20 /min Juvencio Rosa Other [employer] Other 05-02-2022 16:30-0500 SaO2% (BldA) [Mass fraction] 97 % Juvencio Rosa Other [employer] Other 05-02-2022 16:30-0500 Systolic blood pressure 150 mm[Hg] Juvencio Rosa Other [employer] Other 01-31-2022 19:45-0500 Body height 177.8 cm Juvencio Rsoa Other [employer] Other 01-31-2022 19:45-0500 Body mass index (BMI) [Ratio] 54.95 kg/m2 Juvencio Rosa Other [employer] Other 01-31-2022 19:45-0500 Body temperature 99.1 [degF] Juvencio Rosa Other [employer] Other 01-31-2022 19:45-0500 Body weight 173.73 kg Juvencio Rosa Other [employer] Other 01-31-2022 19:45-0500 Diastolic blood pressure 92 mm[Hg] Juvencio Rosa Other [employer] Other 01-31-2022 19:45-0500 Respiratory rate 20 /min Juvencio Rosa Other [employer] Other 01-31-2022 19:45-0500 SaO2% (BldA) [Mass fraction] 98 % Juvencio Rosa Other [employer] Other 01-31-2022 19:45-0500 Systolic blood pressure 142 mm[Hg] Juvencio Rosa Other [employer] Other 11-24-2021 09:45-0400 Body height 177.8 cm Juvencio Rosa Other [employer] Other 11-24-2021 09:45-0400 Body mass index (BMI) [Ratio] 53.23 kg/m2 Juvencio Rosa Other [employer] Other 11-24-2021 09:45-0400 Body temperature 97.6 [degF] Juvencio Rosa Other [employer] Other 11-24-2021 09:45-0400 Body weight 168.29 kg Juvencio Rosa Other [employer] Other 11-24-2021 09:45-0400 Diastolic blood pressure 102 mm[Hg] Juvencio Rosa Other [employer] Other 11-24-2021 09:45-0400 Respiratory rate 20 /min Juvencio Rosa Other [employer] Other 11-24-2021 09:45-0400 SaO2% (BldA) [Mass fraction] 99 % Juvencio Rosa Other [employer] Other 11-24-2021 09:45-0400 Systolic blood pressure 148 mm[Hg] Juvencio Rosa Other [employer] Other 10-25-2021 16:15-0400 Body height 177.8 cm Michelle Ibeth Other [employer] Other 10-25-2021 16:15-0400 Body mass index (BMI) [Ratio] 54.09 kg/m2 Michelle Ibeth Other [employer] Other 10-25-2021 16:15-0400 Body temperature 97.3 [degF] Michelle Ibeth Other [employer] Other 10-25-2021 16:15-0400 Body weight 171.01 kg Michelle Ibeth Other [employer] Other 10-25-2021 16:15-0400 Diastolic blood pressure 111 mm[Hg] Michelle Ibeth Other [employer] Other 10-25-2021 16:15-0400 SaO2% (BldA) [Mass fraction] 96 % Michelle Ibeth Other [employer] Other 10-25-2021 16:15-0400 Systolic blood pressure 182 mm[Hg] Michelle Ibeth Other [employer] Other 03-08-2021 17:30-0500 Body height 177.8 cm Juvencio Rosa Other [employer] Other 03-08-2021 17:30-0500 Body mass index (BMI) [Ratio] 57.93 kg/m2 Juvencio Rosa Other [employer] Other 03-08-2021 17:30-0500 Body temperature 98.9 [degF] Juvencio Rosa Other [employer] Other 03-08-2021 17:30-0500 Body weight 183.16 kg Juvencio Rosa Other [employer] Other 03-08-2021 17:30-0500 Diastolic blood pressure 90 mm[Hg] Juvencio Rosa Other [employer] Other 03-08-2021 17:30-0500 Respiratory rate 20 /min Juvencio Rosa Other [employer] Other 03-08-2021 17:30-0500 SaO2% (BldA) [Mass fraction] 96 % Juvencio Rosa Other [employer] Other 03-08-2021 17:30-0500 Systolic blood pressure 144 mm[Hg] Juvencio Rosa Other [employer] Other 01-23-2021 17:45-0500 Body height 177.8 cm Juvencio Rosa Other [employer] Other 01-23-2021 17:45-0500 Body mass index (BMI) [Ratio] 57.24 kg/m2 Juvencio Roas Other [employer] Other 01-23-2021 17:45-0500 Body temperature 98.7 [degF] Juvencio Rosa Other [employer] Other 01-23-2021 17:45-0500 Body weight 180.99 kg Juvencio Rosa Other [employer] Other 01-23-2021 17:45-0500 Diastolic blood pressure 90 mm[Hg] Juvencio Rosa Other [employer] Other 01-23-2021 17:45-0500 Respiratory rate 20 /min Juvencio Rosa Other [employer] Other 01-23-2021 17:45-0500 SaO2% (BldA) [Mass fraction] 98 % Juvencio Rosa Other [employer] Other 01-23-2021 17:45-0500 Systolic blood pressure 138 mm[Hg] Juvencio Rosa Other [employer] Other Encounters Encounter Date Encounter Type Care Provider Facility Start: 11-09-2024 End: 11-09-2024 ambulatory Juvencio M. Rosa DO Work Phone: [facility] Work Phone: Start: 11-09-2024 End: 11-09-2024 Patient encounter procedure José Luis Marin MD -[facility] Work Phone: Start: 11-04-2024 End: 11-04-2024 ambulatory Juvencio M. Rosa DO Work Phone: [facility] Work Phone: Start: 11-04-2024 End: 11-04-2024 Patient encounter procedure Juvencio Rosa Fish DO -[facility] [place] Work Phone: Start: 11-03-2024 End: 11-03-2024 ambulatory Juvencioasif Adamsgles DO Work Phone: [facility] Work Phone: Start: 11-03-2024 End: 11-03-2024 Patient encounter procedure Norbert Porras MD -[facility] Work Phone: Start: 10-29-2024 Non-patient / Non-visit Sena Izquierdo MD -[facility] Work Phone: Start: 10-28-2024 Non-patient / Non-visit Tyra Eugene -[facility] Work Phone: Start: 10-27-2024 Non-patient / Non-visit María Santana MD -[facility] Work Phone: Start: 10-26-2024 Non-patient / Non-visit María Santana MD -[facility] Work Phone: Start: 10-25-2024 Non-patient / Non-visit María Santana MD -[facility] Work Phone: Start: 10-24-2024 Non-patient / Non-visit María Santana MD -[facility] Work Phone: Start: 10-23-2024 End: 10-23-2024 ambulatory Juvencioasif Lee DO Work Phone: [facility] Work Phone: Start: 10-23-2024 End: 10-23-2024 Departed Referred María Santana MD -[facility] Start: 10-23-2024 Non-patient / Non-visit Randi Garcia DO -[facility] Work Phone: Start: 09-24-2024 End: 09-24-2024 ambulatory Juvencio M. Rosa DO Work Phone: [facility] Work Phone: Start: 09-24-2024 End: 09-24-2024 Patient encounter procedure Edvin Hastings MD -[facility] Vascular Surgery [place] Work Phone: Start: 09-17-2024 End: 09-17-2024 ambulatory Juvencio M. Rosa DO Work Phone: [facility] Work Phone: Start: 09-17-2024 End: 09-17-2024 Patient encounter procedure Juvencioasif AdamsRosa M DO -[facility] [place] Work Phone: Start: 08-10-2024 End: 08-10-2024 ambulatory Juvencio M. Rosa DO Work Phone: [facility] Work Phone: Start: 08-10-2024 End: 08-10-2024 Patient encounter procedure Juvencio Rosa DO Work Phone: [facility] [place] Work Phone: Start: 07-13-2024 End: 07-13-2024 Patient encounter procedure Juvencio Rosa DO Work Phone: [facility] [place] Work Phone: Start: 07-13-2024 End: 07-13-2024 ambulatory Juvencio M. Rosa DO Work Phone: [facility] Work Phone: Start: 07-08-2024 End: 07-08-2024 ambulatory Juvencio M. Rosa DO Work Phone: [facility] Work Phone: Start: 07-08-2024 End: 07-08-2024 Patient encounter procedure Juvencio Rosa DO Work Phone: [facility] Card[facility] Work Phone: Start: 06-18-2024 End: 06-18-2024 Patient encounter procedure Juvencio Rosa DO Work Phone: [facility] Physician [facility] Vascular Surgery [place] Work Phone: Start: 06-10-2024 End: 06-10-2024 ambulatory [facility] Work Phone: Start: 06-10-2024 End: 06-10-2024 Patient encounter procedure [facility] [place] Work Phone: Start: 05-20-2024 End: 05-20-2024 ambulatory [facility] Work Phone: Start: 05-20-2024 End: 05-20-2024 Patient encounter procedure [facility] Vascular Surg Work Phone: Start: 03-11-2024 End: 03-11-2024 ambulatory Juvencio M. Rosa DO Work Phone: [facility] Work Phone: Start: 03-11-2024 End: 03-11-2024 Patient encounter procedure Juvencio Rosa DO Work Phone: [facility] [place] Work Phone: Start: 02-13-2024 End: 02-13-2024 Patient encounter procedure Juvencio Rosa DO Work Phone: [facility] Vascular Surg Work Phone: Start: 02-10-2024 End: 02-10-2024 Patient encounter procedure Juvencio Rosa DO Work Phone: [facility] [place] Work Phone: Start: 02-10-2024 Non-patient / Non-visit Juvencio Rosa DO Work Phone: [facility] [place] Work Phone: Start: 02-09-2024 Non-patient / Non-visit Juvencio Rosa DO Work Phone: [facility] Work Phone: Start: 02-08-2024 Non-patient / Non-visit Juvencio Rosa DO Work Phone: [facility] Work Phone: Start: 02-07-2024 Non-patient / Non-visit Juvencio Rosa DO Work Phone: [facility] Work Phone: Start: 02-05-2024 End: 02-05-2024 Patient encounter procedure Juvencio Rosa DO Work Phone: [facility] [place] Work Phone: Start: 02-05-2024 End: 02-05-2024 ambulatory Juvencio M. Rosa Facility:[facility] Start: 01-16-2024 End: 01-16-2024 ambulatory [facility] Work Phone: Start: 01-16-2024 End: 01-16-2024 Patient encounter procedure [facility] [place] Work Phone: Start: 01-08-2024 End: 01-08-2024 ambulatory EDVIN HASTINGS Facility:[facility] Start: 01-08-2024 End: 01-08-2024 Patient encounter procedure EDVIN HASTINGS [facility] Start: 2024 End: 2024 ambulatory [facility] Work Phone: Start: 2024 End: 2024 Patient encounter procedure [facility] Vascular Surgery [place] Work Phone: Start: 12-25-2023 End: 12-25-2023 ambulatory JUVENCIO M ROSA Facility:[facility] Start: 12-25-2023 End: 12-25-2023 Patient encounter procedure JUVENCIO M ROSA [facility] Start: 12-25-2023 End: 12-25-2023 ambulatory [facility] Work Phone: Start: 12-25-2023 End: 12-25-2023 Patient encounter procedure [facility] Physician [facility] Work Phone: Start: 04-12-2023 End: 04-12-2023 ambulatory Juvencio Rosa Other [employer] Other Start: 04-12-2023 Telephone encounter Juvencio Rosa [facility] Start: 02-28-2023 End: 02-28-2023 ambulatory Juvencio Rosa Other [employer] Other Start: 02-28-2023 Telephone encounter Juvencio Rosa [facility] Start: 01-08-2023 End: 01-08-2023 ambulatory Juvencio Rosa Other [employer] Other Start: 01-08-2023 Telephone encounter Juvencio Rosa [facility] Start: 12-06-2022 End: 12-06-2022 ambulatory Juvencio Rosa Other [employer] Other Start: 12-06-2022 Telephone encounter Juvencio Rosa [facility] Start: 11-20-2022 End: 11-20-2022 ambulatory Juvencio Rosa Other [employer] Other Start: 11-20-2022 Telephone encounter Juvencio Rosa [facility] Start: 11-06-2022 End: 11-06-2022 ambulatory Juvencio Rosa Other [employer] Other Start: 11-06-2022 Office outpatient visit 15 minutes Juvencio Rosa [facility] Start: 10-30-2022 End: 10-30-2022 ambulatory Juvencio Rosa Other [employer] Other Start: 10-30-2022 Telephone encounter Juvencio Rosa [facility] Start: 10-24-2022 End: 10-24-2022 Patient encounter procedure DO Juvencio Rosa Work Phone: [facility] Work Phone: Start: 10-24-2022 End: 10-24-2022 ambulatory DO Juvencio M. Rosa Work Phone: [facility] Work Phone: Start: 10-24-2022 Office outpatient visit 10 minutes Michelle [facility] Start: 10-16-2022 End: 10-16-2022 ambulatory Juvencio Rosa Other [employer] Other Start: 10-16-2022 Telephone encounter Juvencio Rosa [facility] Start: 10-10-2022 End: 10-10-2022 Patient encounter procedure JUVENCIO M ROSA [facility] Start: 09-18-2022 End: 09-18-2022 ambulatory Juvencio Rosa Other [employer] Other Start: 09-18-2022 Telephone encounter Juvencio Rosa [facility] Start: 05-07-2022 End: 05-07-2022 ambulatory Juvencio Rosa Other [employer] Other Start: 05-07-2022 Telephone encounter Juvencio Rosa [facility] Start: 05-04-2022 End: 05-04-2022 ambulatory Juvencio Rosa Other [employer] Other Start: 05-04-2022 Telephone encounter Juvencio Rosa [facility] Start: 05-02-2022 End: 05-02-2022 ambulatory Juvencio Rosa Other [employer] Other Start: 05-02-2022 Office outpatient visit 15 minutes Juvencio Rosa [facility] Start: 01-31-2022 End: 01-31-2022 ambulatory Juvencio Rosa Other [employer] Other Start: 01-31-2022 Office outpatient visit 15 minutes Juvencio Rosa [facility] Start: 12-22-2021 End: 12-22-2021 ambulatory Juvencio Rosa Other [employer] Other Start: 12-22-2021 Telephone encounter Juvencio Rosa [facility] Start: 11-24-2021 End: 11-24-2021 ambulatory Juvencio Rosa Other [employer] Other Start: 11-24-2021 Office outpatient visit 15 minutes Juvencio Rosa [facility] Start: 11-20-2021 End: 11-20-2021 ambulatory Juvencio Rosa Other [employer] Other Start: 11-20-2021 Telephone encounter Juvencio Rosa [facility] Start: 10-25-2021 End: 10-25-2021 Patient encounter procedure DO Juvencio Rosa Work Phone: [facility] Start: 10-25-2021 End: 10-25-2021 ambulatory Michelle Ibeth Other [employer] Other Start: 10-25-2021 Office outpatient visit 10 minutes Michelle Ibeth [facility] Start: 09-07-2021 End: 09-07-2021 ambulatory Juvencio Rosa Other [employer] Other Start: 09-07-2021 Telephone encounter Juvencio Rosa [facility] Start: 07-24-2021 End: 07-24-2021 ambulatory Juvencio Rosa Other [employer] Other Start: 07-24-2021 Telephone encounter Juvencio Rosa [facility] Start: 05-31-2021 End: 05-31-2021 ambulatory Juvencio Rosa Other [employer] Other Start: 05-31-2021 Telephone encounter Juvencio Rosa [facility] Start: 05-30-2021 End: 05-30-2021 Patient encounter procedure DO Juvencio Rosa Work Phone: [facility] Start: 05-24-2021 End: 05-24-2021 ambulatory Juvencio Rosa Other [employer] Other Start: 05-24-2021 Telephone encounter Juvencio Rosa [facility] Start: 05-16-2021 End: 05-16-2021 ambulatory Juvencio Rosa Other [employer] Other Start: 05-16-2021 Telephone encounter Juvencio Rosa [facility] Start: 04-14-2021 End: 04-14-2021 ambulatory Juvencoi Rosa Other [employer] Other Start: 04-14-2021 Telephone encounter Juvencio Rosa [facility] Start: 03-08-2021 End: 03-08-2021 ambulatory Juvencio Rsoa Other [employer] Other Start: 03-08-2021 Office outpatient visit 15 minutes Juvencio Rosa [facility] Start: 03-08-2021 Telephone encounter Juvencio Rosa [facility] Start: 02-07-2021 End: 02-08-[address] HENNING Abe ROSA Facility: Start: 01-23-2021 End: 01-23-2021 ambulatory Juvencio Rosa Other [employer] Other Start: 01-23-2021 Office outpatient visit 25 minutes Juvencio Rosa [facility] Start: 08-30-2020 ambulatory ERMELINDA THORPE Facilit y:H1 Procedures Date Procedure Procedure Detail Performing Clinician Start: 10-23-2024 Urine culture Juvencio Loulou les DO Work Phone: Start: 08-10-2024 Doppler ultrasonogra phy of kidney Juvencio Rosa DO Work Phone: Start: 02-05-2024 Duplex scan of lower limb veins Juvencio Rosa DO Work Phone: Plan of Treatment Date Care Activity Detail Author Start: 10-23-2024 Urine culture [facility] Start: 10-23-2024 Bacteria identified in Urine by Culture Urine Culture [facility] Start: 08-10-2024 Doppler ultrasonogra phy of kidney US renal doppler [facility] Start: 08-10-2024 US Unspecified body region [facility] Start: 07-13-2024 Aldosterone [Mass/vo lume] in Serum or Plasma [facility] Start: 07-13-2024 Renin [Enzymatic activity/volume] in Plasma [facility] Start: 07-13-2024 [facility] Start: 07-08-2024 [facility] Start: 02-10-2024 Patient referral [facility] Work Phone: Aldosterone [Mass/vo lume] in Serum or Plasma [facility] Creatinine [Mass/vol ume] in Urine [facility] Immunofixation for Urine Fir [facility] Metanephrines [Mass/ volume] in 24 hour Urine [facility] Metanephrines/Creati nine [Mass Ratio] in Urine [facility] Normetanephrine [Mass/volume] in 24 hour Urine [facility] Patient referral [facility] Work Phone: Renal function 2000 panel - Serum or Plasma [facility] Renin [Enzymatic activity/volume] in Plasma [facility] US Heart Transthoracic [facility] US Lower extremity v ein - bilateral [facility] US Lower extremity v ein - bilateral [facility] US Unspecified body region [facility] Immunizations Immunization Date Immunization Notes Care Provider Fa cility 08-14-2020 Do not use COVID-19 Pfizer 2 dose Juvencio Rosa Other [facility] 07-24-2020 COVID-19 Vaccine Pfizer - Documentation Purposes Only Juvencio Rosa Other [facility] NEGATED: Highlighted row has not occurred!01-23-2021 influenza, injectable, quadrivalent, contains preservative Patient Objection Juvencio Rosa Other [facility] [employer] Other NEGATED: Highlighted row has not occurred!12-09-2019 influenza, injectable, quadrivalent, contains preservative Patient Objection Juvencio Rosa Other [employer] [facility] [employer] Other NEGATED: Highlighted row has not occurred!01-05-2019 influenza, injectable, quadrivalent, contains preservative Patient Objection Juvencio Rosa Other [employer] [facility] [employer] Other NEGATED: Highlighted row has not occurred!01-04-2017 influenza, injectable, quadrivalent, contains preservative Patient Objection Juvencio Adamsgles Other [employer] Other Payers Date Payer Category Payer Self-pay [id number] 1975 Unknown [id number] 2.16.84 [id number] 1975 Unknown [id number] 2.16.84 [id number] 1973 Unknown [id number] 2.16.8 [id number] 1973 Unknown [id number] 2.16.8 [id number] 1959 Unknown [id number] Unknown [id number] 2.16.8 [id number] Unknown [id number] 2.16.8 [id number] Unknown [id number] 2.16.8 [id number] Unknown [id number] 2.16.8 [id number] Unknown [id number] 2.16.8 [id number] Social History Date Type Detail Facility Tobacco smoking stat us VTIS Unknown if ever smoked [employer] Other Start: 1975 Sex Assigned At Male [facility] Sex Assigned At [facility] Tobacco smoking status No Smokin g Status Entered [facility] Start: 12-25-2023 End: 11-09-2024 Tobacco smoking status NHIS Never smoked tobacco (finding) [facility] Start: 01-16-2024 End: 08-11-2024 Sex Male (finding) [facility] Clinical Notes 01-23-2021 to 09-17-2024 Note Date & Type Note Facility 09-17-2024 Evaluation note Diagnosis Onset Date Resolution Essential (primary) hypertension acute September 17, 2024 3:16pm Venous insufficiency of left leg acute September 24, 2024 3:37pm [facility] Work Phone: 1(322) 881-767907-17-2025 Evaluation note* Diagnosis Onset Date Resolution Status Admit Date Essential (primary) hypertension acu te September 17, 2024 3:16pm Venous insufficiency of left leg acu te September 24, 2024 3:37pm Anemia of renal disease acute 2024 2:41pm CKD (chronic kidney disease) stage 4, GFR 15-29 ml/min acute 2024 2:41pm Hypertensive chronic kidney disease with stage 1 through stage 4 chronic ki acute November 2:41pm Proteinuria acute November 2:41pm Secondary hyperparathyroidism acute November 03, 2024 2:41pm [facility] Work Phone: 1(707) 661-941207-17-2025 Evaluation note* Diagnosis Onset Date Resolution Status Admit Date Essential (primary) hypertension acu te September 17, 2024 3:16pm Venous insufficiency of left leg acu te September 24, 2024 3:37pm Anemia of renal disease acute 2024 2:41pm CKD (chronic kidney disease) stage 4, GFR 15-29 ml/min acute 2024 2:41pm Hypertensive chronic kidney disease with stage 1 through stage 4 chronic ki acute November 2:41pm Proteinuria acute November 2:41pm Secondary hyperparathyroidism acute November 03, 2024 2:41pm Hypertensive chronic kidney disease with stage 1 through stage 4 chronic ki acute November 10:44am Swelling of left lower extremity acu te November 04, 2024 10:44am [facility] Work Phone: 1(847) 120-642705-07-2025 Evaluation note* Diagnosis Onset Date Resolution Status Admit Date Dyspnea on exertion acute July 082024 3:10pm Essential (primary) hypertension acute July 08, 2024 3: 10pm Obstructive sleep apnea acute 2024 3:10pm Elevated serum creatinine noneactive July 08, 2024 3:10pm Essential (primary) hypertension acute September 17, 2024 3:16pm [facility] Work Phone: 1(952) 283-975804-09-2025 Evaluation note* Diagnosis Onset Date Resolution Status Admit Date Essential (primary) hypertension acute June 10, 2024 3:32pm Body mass index [BMI] 50.0-59.9, adult noneactive June 10, 2024 3:32pm Venous insufficiency of left leg acute June 18, 2024 3:36pm [facility] Work Phone: 1(558) 675-941304-09-2025 Evaluation note* Diagnosis Onset Date Resolution Status [...] serum creatinine noneactive July 08, 2024 3:10pm [facility] Work Phone: 1([phone]) 581-479301-08-2025 Evaluation note* Diagnosis Onset Date Resolution Status Admit Date Essential (primary) hypertension acute March 11 3:24pm [facility] Work Phone: 1(423) 633-962610-23-2024 Evaluation note* Diagnosis Onset Date Resolution Status Admit Date Essential (primary) hypertension acute December 24 3:13pm Left leg swelling noneactive December 25, 2023 3:13pm Swelling of left lower extremity acute January 01 3:14pm [facility] Work Phone: 1(426) 641-457210-23-2024 Evaluation note* Diagnosis Onset Date Resolution Status Admit Date Essential (primary) hypertension acute December 24 3:13pm Left leg swelling noneactive December 25, 2023 3:13pm Swelling of left lower extremity acute January 01 3:14pm Essential (primary) hypertension acute [facility], 20 24 3:07pm Obstructive sleep apnea acute D ecember 2023 3:07pm Venous insufficiency of left leg acute February 12 024 3:29pm Essential (primary) hypertension acute March 11 3:24pm [facility] Work Phone: 1(864) 572-638912-28-2023 Evaluation note* Encounter Date Diagnosis Assessment Notes Treatment Notes Treatment Clinical Notes Feb, Decreased GFR (ICD-10 - R94.4) [employer] Other 10-05-2023 Evaluation note* Encounter Date Diagnosis Assessment Notes Treatment Notes Treatment Clinical Notes Dec, Decreased GFR (ICD-10 - R94.4) [employer] Other 09-19-2023 Evaluation note* Encounter Date Diagnosis Assessment Notes Treatment Notes Treatment Clinical Notes Nov, Essential (primary) hypertension (ICD-10 - I10) [employer] Other 09-05-2023 Evaluation note* Encounter Date Diagnosis [...] diet, and weight loss are always encouraged. [employer] Other 08-23-2023 Evaluation note* Encounter Date Diagnosis Assessment Notes Treatment Notes Treatment Clinical Notes Oct, Obstructive sleep apnea (ICD-10 - G47.33) [employer] Other 07-18-2023 Evaluation note* Encounter Date Diagnosis Assessment Notes Treatment Notes Treatment Clinical Notes Sep, Essential (primary) hypertension (ICD-10 - I10) [employer] Other 03-03-2023 Evaluation note* Encounter Date Diagnosis Assessment Notes Treatment Notes Treatment Clinical Notes May, Essential (primary) hypertension (ICD-10 - I10) [employer] Other 03-01-2023 Evaluation note* Encounter Date Diagnosis Assessment Notes Treatment Notes Treatment Clinical Notes May, Essential (primary) hypertension (ICD-10 - I10) May, Chronic fatigue (ICD-10 - R53.82) May, Other The goal of hypertension as always to have a blood pressure within acceptable limits, with patient staying compliant with medication. Increased activity, monitoring diet, and weight loss are always encouraged. [employer] Other 03-01-2023 Evaluation note* Encounter Date Diagnosis [...] diet, and weight loss are always encouraged. [employer] Other 11-30-2022 Evaluation note* Encounter Date Diagnosis [...] diet, and weight loss are always encouraged. [employer] Other 10-21-2022 Evaluation note* Encounter Date Diagnosis Assessment Notes Treatment Notes Treatment Clinical Notes Dec, Essential (primary) hypertension (ICD-10 - I10) [employer] Other 09-23-2022 Evaluation note* Encounter Date Diagnosis Assessment Notes Treatment Notes Treatment Clinical Notes Nov, Essential (primary) hypertension (ICD-10 - I10) eRX sent. Will recheck in 2-3 months. Nov, Other The goal of hypertension as always to have a blood pressure within acceptable limits, with patient staying compliant with medication. Increased activity, monitoring diet, and weight loss are always encouraged. [employer] Other 09-19-2022 Evaluation note* Encounter Date Diagnosis Assessment Notes Treatment Notes Treatment Clinical Notes Nov, Essential (primary) hypertension (ICD-10 - I10) [employer] Other 08-24-2022 Evaluation note* Encounter Date Diagnosis Assessment Notes Treatment Notes Treatment Clinical Notes Oct, Obstructive sleep apnea (ICD-10 - G47.33) [employer] Other 05-23-2022 Evaluation note* Encounter Date Diagnosis Assessment Notes Treatment Notes Treatment Clinical Notes July, Essential (primary) hypertension (ICD-10 - I10) [employer] Other 03-23-2022 Evaluation note* Encounter Date Diagnosis Assessment Notes Treatment Notes Treatment Clinical Notes May, Chronic fatigue (ICD-10 - R53.82) [employer] Other 02-11-2022 Evaluation note* Encounter Date Diagnosis Assessment Notes Treatment Notes Treatment Clinical Notes Apr, Essential (primary) hypertension (ICD-10 - I10) [employer] Other 01-05-2022 Evaluation note* Encounter Date Diagnosis [...] diet, and weight loss are always encouraged. [employer] Other 11-22-2021 Evaluation note* Encounter Date Diagnosis [...] diet, and weight loss are always encouraged. [employer] Other Evaluation + Plan note No data available for this section [facility] Work Phone: Evaluation noteNo [employer] Other Evaluation note* Diagnosis Onset Date Resolution Status Essential (primary) hypertension acute Left leg swelling noneactive [facility] Work Phone: Evaluation note* Diagnosis Onset Date Resolution Status Admit Date Essential (primary) hypertension acu te June 10, 2024 3:32pm [facility] Work Phone: History general Narrative - Reported* Type Description Date Medical History Hypertension [employer] Other History general Narrative - Reported* Type Description Date Medical History Hypertension Medical History Sleep Apnea [facility] [employer] Other Hospital Discharge instructions No data available for this section [facility] No data available for this section [facility] (narrative)No reason for referral information availablePrem[facility] Work Phone: Summary Purpose Family History Relationship Condition Age at Onset Recorded Date/T lucas brother Diabetes mellitus Unknown Unknown father Diabetes mellitus Unknown Hypertension Unknown mother Unknown Diabetes mellitus Unknown Malignant neoplasm of pancreas Unknown Advance Directives Advance Directive Response Recorded Date/ Time Advance Directives No December 26, 2016 11:07am Advance Directive Response Recorded Date/ Time Advance Directives No December 26, 2016 10:07am Advance Directive Response Recorded Date/ Time Advance Directives No October 28, 2024 9:38am Advance Directive Response Recorded Date/ Time Advance Directives No November 10:21am Chief Complaint and Reason for Visit Chief [...] REF BY DR. LEE FOR LEG SWELLING 2023 3:14pm GO OVER F[place] [facility] January 16, 2024 3:15pm Reason for Visit Admit Date Essential (primary) hypertension December 25, 2023 3:13pm Left leg swelling December 25, 2023 3 :13pm Swelling of left lower extremity 2024 3:14pm Chief Complaint Admit Date BP concerns December 25, 2023 3 :13pm REF BY DR. LEE FOR LEG SWELLING Deco 2023 3:14pm GO OVER F[place]F [place] [facility] [place] January 16, 2024 3:15pm I83.813 February 05, 2024 3 :22pm Amb Documentation February 10, 2024 1 2:03pm chest congestion February 10, 2024 3 :07pm [place] [facility] [place] 13, 2024 3:29pm one month March 11, 2024 3: 24pm Reason for Visit Admit Date Essential (primary) hypertension December 25, 2023 3:13pm Left leg swelling December 25, 2023 3 :13pm Swelling of left lower extremity 2024 3:14pm Essential (primary) hypertension Decee r 2023 3:07pm Obstructive sleep apnea February 09 3:07pm Venous insufficiency of left leg Decee r 2023 3:29pm Essential (primary) hypertension March [...] insufficiency of left leg September 242024 3:37pm Chief Complaint Admit Date I10 August 10, 2024 7:58a m 3 month follow up Sujey 17th, 2025 3:16 pm 3 mo VV F/U no testing September 24, 2024 3 :37pm Unknown October 23, 2024 9: 56pm Amb Documentation October 28, 2024 9: 25am CKD 4 November 03, 2024 2:41pm Reason for Visit Admit Date Essential (primary) hypertension September 172024 3:16pm Venous insufficiency of left leg September 242024 3:37pm Anemia of renal disease November 03, 2 025 2:41pm CKD (chronic kidney disease) stage 4, GF R 15-29 ml/min November 03, 2024 2:41pm Hypertensive chronic kidney disease with stage 1 through stage 4 chronic ki November 03, 2024 2:41pm Proteinuria November 03, 2024 2:41pm Secondary hyperparathyroidism November 03, 2024 2:41pm Chief Complaint Admit Date I10 August 10, 2024 7:58a m 3 month follow up September 17, 2024 3:16 pm 3 mo VV F/U no testing September 24, 2024 3 :37pm Unknown October 23, 2024 9: 56pm Amb Documentation October 28, 2024 9: 25am CKD 4 November 03, 2024 2:41pm Hospital follow up/ FMLA Paperwork [facility] 2024 10:44am Chief Complaint Admit Date 3 month follow up September 17, 2024 3:16 pm 3 mo VV F/U no testing September 24, 2024 3 :37pm Unknown October 23, 2024 9: 56pm Amb Documentation October 28, 2024 9: 25am CKD 4 November 03, 2024 2:41pm Hospital follow up/ FMLA Paperwork [facility] 2024 10:44am Ref: Dr. Shetty Diab - Cellulitis L. Low er Leg November 09, 2024 1:57pm Reason for Visit Admit Date Essential (primary) hypertension September 172024 3:16pm Venous insufficiency of left leg September 242024 3:37pm Anemia of renal disease November 03, 2 025 2:41pm CKD (chronic kidney disease) stage 4, GF R 15-29 ml/min November 03, 2024 2:41pm Hypertensive chronic kidney disease with stage 1 through stage 4 chronic ki November 03, 2024 2:41pm Proteinuria November 03, 2024 2:41pm Secondary hyperparathyroidism November 03, 2024 2:41pm Hypertensive chronic kidney disease with stage 1 through stage 4 chronic ki November 04, 2024 10:44am Swelling of left lower extremity Septemb er 2024 10:44am Additional Source Comments (unrecognized sect ion and content) No Status Records FoundNo Status Records FoundNo Status Records Found INFORMATION SOURCE (unrecogn ized section and content) DATE CREATED AUTHOR 02/12/2021 [facility] DATE CREATED AUTHOR AUTHOR'S ORGANIZ ATION 01/18/2024 [place] [facility] DATE CREATED AUTHOR AUTHOR'S ORGANIZ ATION 10/27/2024 [facility] Care Teams (unrecognized sec tion and content) Team Status: Inactive Member Role Status Dates Juvencio Lee DO Primary Care Provider, Referring Provider Active Eber Krause MD Attending Provider Active Team Status: Active Member Role Status Dates Juvencio Lee DO Primary Care Provider Active Team Status: Inactive Member Role Status Dates Juvencio Lee DO Primary Care Provider Active Michelle Cristina APRN [facility] Attending Provider Active Team Status: Inactive [...] Provider Active Start: February 07, 2024 Suresh D Katko , DO Attending Provider Active S tart: February [...] Status: Active Member Role Status Dates Juvencio M. Rosa , DO Primary Care Provider Active Start: October 23, 2024 Randi Porras Jose , DO Attending Provider Active Start: October [...] Provider Active Start: October 24, 2024 María aSntana MD Attending Provider Active Sta rt: October 24, 2024 Team Status: Active Member Role Status Dates Juvencio Lee DO Primary Care Provider Active Start: October 25, 2024 María Santana MD Attending Provider Active Sta rt: October 25, 2024 Team Status: Active Member Role Status Dates Juvencio Lee DO Primary Care Provider Active Start: October 26, 2024 María Santana MD Attending Provider Active Sta rt: October 26, 2024 Team Status: Active Member Role Status Dates Juvencio Lee DO Primary Care Provider Active Start: October 27, 2024 María Santana MD Attending Provider Active Sta rt: October 27, 2024 Team Status: Active Member Role Status Dates Juvencio Lee DO Primary Care Provider Active Start: October 28, 2024 Tyra Eugene Attending Provider Active Start: Au 2024 Team Status: Active Member Role Status Dates Juvencio Lee DO Primary Care Provider Active Start: October 29, 2024 Sena Izquierdo MD Attending Provider Active Sta rt: October 29, 2024 Team Status: Inactive Member Role Status Dates Juvencio Lee DO Primary Care Provider Active Start: November 03, 2024 End: November 03, 2024 Norbert Porras MD Attending Provider Active Start : November 03, 2024 End: November 03, 2024 Team Status: Inactive Member Role Status Dates Juvencio Lee DO Primary Care Provider Active Start: November 04, 2024 End: November 04, 2024 Juvencio Lee DO Attending Provider Active S tart: November 04, 2024 End: November 04, 2024 Team Status: Inactive Member Role Status Dates Juvencio FishBaljeet Lee , Primary Care Provider Active Start: November 09, 2024 End: November 09, 2024 José Luis Marin MD Attending Provider Active Sta rt: November 09, 2024 End: November 09, 2024 Sena Izquierdo MD Referring Provider Active Sta rt: November 09, 2024 End: November 09, 2024 Goals (unrecognized section and content) Goals [...] BE BASED ON THE PRIMARY CLINICAL RECORDS. [facility] provides no warranty or guarantee of the accuracy or completeness of information in this document.
[2024-11-10 11:54] LABS: Hematocrit 36.1 % (42.0-54.0); Hemoglobin 11.6 g/dL (14.0-18.0); Immature Granulocytes Abs Auto 0.04 10^3/uL (0.00-0.03); Immature Granulocytes Pct Auto 0.3 % (0.0-0.5); Lymphocytes Absolute Auto 2.1 10^3/uL (1.2-3.8); Mean Corpuscular HGB Conc 32.1 g/dL (29.9-35.2); Mean Corpuscular Hemoglobin 28.6 pg (25.9-34.0); Mean Corpuscular Volume 88.9 fL (80.0-94.0); Platelet Count 436 10^3/uL (150-450); Red Blood Count 4.06 10^6/uL (4.70-6.10); White Blood Count 12.3 10^3/uL (4.0-11.0)
[2024-11-10 12:38] LABS: Anion Gap 15.1; Blood Urea Nitrogen 48.0 mg/dL (7.0-18.0); Calcium 9.2 mg/dL (8.5-10.1); Carbon Dioxide 26.2 mmol/L (21.0-32.0); Chloride 100 mmol/L (98-107); Estimated GFR (African America 19 (>=60 mL/min/1.73m^2); Estimated GFR (Non-African Ame 15 (>=60 mL/min/1.73m^2); Glucose 95 mg/dL (74-106); Potassium 4.3 mmol/L (3.5-5.1); Sodium 137 mmol/L (136-145)
[2024-11-24 15:31] LABS: Hematocrit 28.4 % (42.0-54.0); Hemoglobin 9.0 g/dL (14.0-18.0); Immature Granulocytes Abs Auto 0.03 10^3/uL (0.00-0.03); Immature Granulocytes Pct Auto 0.4 % (0.0-0.5); Lymphocytes Absolute Auto 2.0 10^3/uL (1.2-3.8); Mean Corpuscular HGB Conc 31.7 g/dL (29.9-35.2); Mean Corpuscular Hemoglobin 27.6 pg (25.9-34.0); Mean Corpuscular Volume 87.1 fL (80.0-94.0); Platelet Count 409 10^3/uL (150-450); Red Blood Count 3.26 10^6/uL (4.70-6.10); White Blood Count 7.8 10^3/uL (4.0-11.0)
[2024-11-24 16:09] LABS: Anion Gap 13.2; Blood Urea Nitrogen 49.0 mg/dL (7.0-18.0); Calcium 8.2 mg/dL (8.5-10.1); Carbon Dioxide 23.4 mmol/L (21.0-32.0); Chloride 102 mmol/L (98-107); Estimated GFR (African America 24 (>=60 mL/min/1.73m^2); Estimated GFR (Non-African Ame 20 (>=60 mL/min/1.73m^2); Glucose 123 mg/dL (74-106); Potassium 3.6 mmol/L (3.5-5.1); Sodium 135 mmol/L (136-145)
== END 2024-12-02 08:08 | disposition home or self-care (01) ==
LOC: LAB 11:22
PROVIDERS: PCP Family Medicine; Visit Provider Internal Medicine
DX: L03.818 Cellulitis of other sites (principal); N17.9 Acute kidney failure, unspecified; I82.819 Embolism and thrombosis of superficial veins of unspecified lower extremity; Z51.81 Encounter for therapeutic drug level monitoring
CPT/HCPCS: 36415; 80048; 85025; 86140; 93971

== ENCOUNTER 2024-11-17 12:47 | Outpatient (OUT) | payer BC, SELFPAY ==
--- OUTSIDE RECORDS SUMMARY | 2024-11-17 12:52 | XMS_ITS | Clinical Summary ---
Author Organization [facility] Address [address] [place] [address] Phone Care Team Providers Care Answering Service Telephone Operator Name Role Phone Unavailable Primary Care [...] on patient's age to complete this topic Insurance [facility]
--- OUTSIDE RECORDS SUMMARY | 2024-11-17 12:52 | XMS_ITS | Encounter Summary ---
Author Organization [facility] Address [address] [place] [address] Phone Care Team Providers Care Justice Court Judge Name Role Phone Unavailable Primary Care Provider Unavailabl e Encounter Details Date Type Department Care Team (Late st Contact Info) Description 08/10/2024 Scanned Document [facility] [address] [place] [address] Scanning, Generic Provider Social History [...]
--- OUTSIDE RECORDS SUMMARY | 2024-11-17 12:52 | XMS_ITS | Clinical Summary ---
Author Organization [facility] Address [address] [place] [address] Care Team Providers Care Control Room Tender Name Role Phone Unavailable Primary Care Provider [...] Plan of Treatment Not on file Insurance [facility]
[2024-11-17 13:24] LABS: Protein Creatinine Ratio Urine 1.34; Total Protein Urine Random 202.8 mg/dL (<=11.9)
[2024-11-17 13:35] LABS: Albumin Level 2.5 g/dL (3.4-5.0); Anion Gap 15.5; Blood Urea Nitrogen 37.0 mg/dL (7.0-18.0); Calcium 8.7 mg/dL (8.5-10.1); Carbon Dioxide 23.7 mmol/L (21.0-32.0); Chloride 103 mmol/L (98-107); Estimated GFR (African America 21 (>=60 mL/min/1.73m^2); Estimated GFR (Non-African Ame 17 (>=60 mL/min/1.73m^2); Glucose 94 mg/dL (74-106); Magnesium 1.8 mg/dL (1.8-2.4); Potassium 4.2 mmol/L (3.5-5.1); Sodium 138 mmol/L (136-145); Uric Acid 9.2 mg/dL (3.5-7.2)
--- OUTSIDE RECORDS SUMMARY | 2024-11-17 13:35 | XMS_ITS | CCD ---
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 Primary Care Provider MICHELE Cristina Attending Provider EDVIN HASTINGS. Attending Unavailab EDVIN Webb Referring Unavailab EDVIN Webb Admitting Unavailab le ROSA, JUVENCIO M Admitting Unavailable ROSA, JUVENCIO M Attending Unavailable ROSA, JUVENCIO M Referring Unavailable Rosa DO, Juvencio M. Primary Care Provider Edvin Hastings MD Attending Provider [phone] Rosa DO, Juvencio M. Primary Care Provider Daniel Gloria MD Attending Provider Rosa DO, Juvencio M. Primary Care Provider Rosa DO, Juvencio M. Referring Provider Daniel Gloria MD Attending Provider Rosa DO, Juvencio M. Attending Provider [phone] Edvin Hastings MD Attending Provider Rosa DO, [...] Attending Provider Norbert Porras MD Attending Provider [phone] Rosa DO, Juvencio M. Primary Care Provider José Luis Marin MD Attending Provider Sena Izquierdo MD Referring Provider [phone] Skip Gomez MD Attending Provider Daniel Gloria MD Attending Provider Medications Current Medications Medication Drug Class(es) Dates Sig (Normalized) Sig (Original) acetaminophen 500 mg oral tablet (20 sources) Start: 05-07-2023 End: 11-03-2024 take 1 tablet by mouth every six [...] day(s) Active carvedilol 25 mg oral tablet (12 sources) alpha-Adrenergic Jasson, beta-Adrenergic Jasson Start: 07-08-2024 take 1 tablet by mouth twice daily at mealtime Carvedilol (Coreg) 25 mg tablet Active 25 MG PO Twice daily 60 30 July 08, 2024 12:00am must administer with a meal/food Complies with drug therapy CPAP (19 sources) Start: 05-07-2023 CPAP Active 0 .Route .[facility] May 07, 2023 12:00am Medication Name: CPAP Machine; Note: Source Status: Taking; Provider: Rosa Henning ( ) Start: 05-07-2023 CPAP Active 0 .Route .[facility] May 07, 2023 1:00am Medication Name: CPAP Machine; Note: Source Status: Taking; Provider: Rosa Henning ( ) Start: 05-07-2023 CPAP Active 0 .ROUTE .[facility] May 07, 2023 1:00am Medication Name: CPAP Machine; Note: Source Status: Taking; Provider: Rosa Henning ( ) CPAP Machine (6 sources) CPAP Machine Act frances ergocalciferol 1.25 mg oral capsule (9 sources) Provitamin D2 Compound Start: 10-17-19 take 1 capsule by mouth every week Vitamin D (Ergocalciferol) 1.25 MG (89231 UT) 1 capsule Orally weekly for 90 days Oct, Active hydrALAZINE hydrochloride 50 mg oral tablet (5 sources) Arteriolar Vasodilator Start: 11-04-19 take 1 tablet by mouth twice daily Hydralazine 50 mg tablet Active 50 MG PO Twice daily November 03, 2024 12:00am Complies with drug therapy rivaroxaban 10 mg oral tablet (9 sources) Factor Xa Inhibitor Start: 11-05-19 take [...] 35 days torsemide 20 mg oral tablet (9 sources) Loop Diuretic Start: 11-04-2024 take 2 [...] (Normalized) Sig (Original) cefTRIAXone 1000 mg injection (5 sources) Cephalosporin Antibacterial Start: 11-03-2024 End: 11-09-2024 [...] 0.2 MG PO Three times daily 270 March 11, 2024 1:00am June 10, 2024 [...] 25 mg tablet Discontinued 0 .ROUTE .[facility] October 13, 2024 1:53pm November 03, 2024 [...] Date Documented Date Episodic/Chronic Chronic kidney disease (20 sources) Chronic kidney disease stage 4; Translations: [Chronic kidney disease, stage 4 (severe)] 11-03-2024 Chronic Coma; stupor; and brain damage (20 sources) Daytime somnolence; Translations: [Somnolence] Onset: 2 Resolved: 2 Episodic Essential hypertension (20 sources) Essential (primary) hypertension; Translations: [Malignant hypertension] Onset: 1 Resolved: 2 Chronic Genitourinary symptoms and ill-defined conditions (10 sources) Proteinuria; Translations: [Proteinuria, unspecified] 11-03-2024 Episodic Hypertension with complications and secondary hypertension (13 sources) Chronic kidney disease due to hypertension; [...] limb] 12-25-2023 Episodic Other connective tissue disease (20 sources) Swelling of left lower limb; Translations: [Other specified soft tissue disorders] 2024 Episodic Other diseases of kidney and ureters (10 sources) Secondary hyperparathyroidism; Translations: [Secondary hyperparathyroidism of renal origin] 11-03-2024 Chronic Other diseases of veins and lymphatics (20 sources) Venous insufficiency of leg; Translations: [Venous insufficiency (chronic) (peripheral)] 02-13-2024 Episodic Other diseases of veins and lymphatics (5 sources) Venous insufficiency (chronic) (peripheral); Translations: [Venous (peripheral) insufficiency, unspecified] 02-13-2024 Episodic Other lower respiratory disease (14 sources) Dyspnea on exertion; Translations: [Other forms [...] conditions (not mental disorders or infectious disease) (9 sources) Abnormal results of kidney function studies; Translations: [Other specified abnormal findings of blood chemistry] Onset: 5 Episodic Phlebitis; thrombophlebitis and thromboembolism (2 sources) Superficial vein thrombosis; Translations: [Acute embolism and thrombosis of other specified veins] 11-11-2024 Episodic Residual codes; unclassified (20 sources) Obstructive sleep apnea syndrome; Translations: [Obstructive sleep apnea (adult) (pediatric)] 02-10-2024 Chronic Residual codes; unclassified (6 sources) Obstructive sleep apnea (adult) (pediatric); Translations: [Obstructive sleep apnea (adult)(pediatric)] Onset: 2 Resolved: 2 Chronic Skin and subcutaneous tissue infections (4 sources) Cellulitis; Translations: [Cellulitis, unspecified] 11-09-2024 Episodic Past [...] (Bld) [#/Vol] Ordered By: María Santana on 11-10-2024 Basophils (Bld) [#/Vol] 0.2 10 3/uL High 0.0-0.1 [facility] Basophils/100 WBC Auto (Bld) Ordered By: María Santana on 11-10-2024 Basophils/100 WBC (Bld) 1.5 % 0.2-2.0 [facility] Eosinophils/100 WBC Auto (Bl d)Ordered By: María Santana on 11-10-2024 Eosinophils/100 WBC (Bld) 1.8 % 0.9-7.0 [facility] Erythrocyte distribution wid th Auto (RBC) [Ratio]Ordered By: María Santana on 11-10-2024 Erythrocyte distribution width (RBC) [Ratio] 14.0 % 11.0-15.0 [facility] Glomerular filtration rate ( GFR) estimation in non- AmericanOrdered By: María Santana on 11-10-2024 GFR/1.73 sq M.predicted among non-blacks MDRD (S/P/Bld) [Vol rate/Area] 15 mL/min/{1.73_m2} Low >=60 mL/min/1.7 3m 2 [facility] Hematocrit Auto (Bld) [Volum e fraction]Ordered By: María Santana on 11-10-2024 Hematocrit (Bld) [Volume fraction] 36.1 % Low 42.0-54.0 [facility] Hemoglobin [Mass/volume] in BloodOrdered By: María Santana on 11-10-2024 Hemoglobin (Bld) [Mass/Vol] 11.6 g/dL Low 14.0-18.0 [facility] Laboratory - Chemistry and C hemistry - challengeOrdered By: María Santana on 11-10-2024 Calcium [Mass/Vol] 9.2 mg/dL 8.5-10.1 [facility] Chloride [Moles/Vol] 100 mmol/L 98-107 [facility] CO2 [Moles/Vol] 26.2 mmol/L 21.0-32.0 [facility] Creatinine [Mass/Vol] 4.15 mg/dL High 0.70-1.30 [facility] GFR/1.73 sq M.predicted MDRD (S/P/Bld) [Vol rate/Area] 19 mL/min/{1.73_m2} Low >=60 mL/min/1.7 3m 2 [facility] Glucose [Mass/Vol] 95 mg/dL 74-106 [facility] Potassium [Moles/Vol] 4.3 mmol/L 3.5-5.1 [facility] Sodium [Moles/Vol] 137 mmol/L 136-145 [facility] Urea nitrogen [Mass/Vol] 48.0 mg/dL High 7.0-18.0 [facility] Urea nitrogen/Creatinine [Mass ratio] 11.6 mg/mg [facility] - Hematology and Cell countsOrdered By: María Santana on 11-10-2024 Immature granulocytes/100 WBC (Bld) 0.3 % 0.0-0.5 [facility] Leukocytes [#/volume] correc miguel for nucleated erythrocytes in Blood by Automated counOrdered By: María Santana on 11-10-2024 WBC corrected for nucl RBC Auto (Bld) [#/Vol] 12.3 10 3/uL High 4.0-11.0 [facility] Lymphocytes Auto (Bld) [#/Vo l]Ordered By: María Santana on 11-10-2024 Lymphocytes (Bld) [#/Vol] 2.1 10 3/uL 1.2-3.8 [facility] Lymphocytes/100 WBC Auto (Bl d)Ordered By: María Santana on 11-10-2024 Lymphocytes/100 WBC (Bld) 16.7 % Low 20.5-60.0 [facility] MCH Auto (RBC) [Entitic mass ]Ordered By: Maíra Santana on 11-10-2024 MCH (RBC) [Entitic mass] 28.6 pg 25.9-34.0 [facility] MCHC Auto (RBC) [Mass/Vol]Or dered By: María Santana on 11-10-2024 MCHC (RBC) [Mass/Vol] 32.1 g/dL 29.9-35.2 [facility] MCV Auto (RBC) [Entitic vol] Ordered By: María Santana on 11-10-2024 MCV (RBC) [Entitic vol] 88.9 fL 80.0-94.0 [facility] Monocytes Auto (Bld) [#/Vol] Ordered By: María Santana on 11-10-2024 Monocytes (Bld) [#/Vol] 0.9 10 3/uL High 0.3-0.8 [facility] Monocytes/100 WBC Auto (Bld) Ordered By: María Santana on 11-10-2024 Monocytes/100 WBC (Bld) 7.3 % 1.7-12.0 [facility] Neutrophils Auto (Bld) [#/Vo l]Ordered By: María Santana on 11-10-2024 Neutrophils (Bld) [#/Vol] 8.9 10 3/uL High 1.4-6.5 [facility] Neutrophils/100 WBC Auto (Bl d)Ordered By: María Santana on 11-10-2024 Neutrophils/100 WBC (Bld) 72.4 % 43.0-75.0 [facility] No Panel InformationOrdered By: María Santana on 11-10-2024 C-Reactive Protein, Quantitative 16.04 mg/dL High <=0.50 [facility] Eosinophils # (Auto) 0.2 10 3/uL 0.0-0.7 [facility] Immature Granulocyte # (Auto) 0.04 10 3/uL High 0.00-0.03 [facility] Platelet mean volume Auto (B ld) [Entitic vol]Ordered By: María Santana on 11-10-2024 Platelet mean volume (Bld) [Entitic vol] 10.3 fL 9.5-13.5 [facility] Platelets Auto (Bld) [#/Vol] Ordered By: María Santana on 11-10-2024 Platelets (Bld) [#/Vol] 436 10 3/uL 150-450 [facility] RBC Auto (Bld) [#/Vol]Ordere d By: María Santana on 11-10-2024 RBC (Bld) [#/Vol] 4.06 10 6/uL Low 4.70-6.10 [facility] Serum or plasma anion gap de terminationOrdered By: María Santana on 11-10-2024 Anion gap [Moles/Vol] 15.1 mmol/L [facility] Basophils Auto (Bld) [#/Vol] Ordered By: Sena Izquierdo on 10-29-2024 Basophils (Bld) [#/Vol] 0.1 10 3/uL 0.0-0.1 [facility] Basophils/100 WBC Auto (Bld) Ordered By: Sena Izquierdo on 10-29-2024 Basophils/100 WBC (Bld) 0.5 % 0.2-2.0 [facility] Eosinophils/100 WBC Auto (Bl d)Ordered By: Sena Izquierdo on 10-29-2024 Eosinophils/100 WBC (Bld) 3.6 % 0.9-7.0 [facility] Erythrocyte distribution wid th Auto (RBC) [Ratio]Ordered By: Sena Izquierdo on 10-29-2024 Erythrocyte distribution width (RBC) [Ratio] 14.1 % 11.0-15.0 [facility] Globulin Calc (S) [Mass/Vol] Ordered By: Sena Izquierdo on 10-29-2024 Globulin (S) [Mass/Vol] 5.9 g/dL [facility] Glomerular filtration rate ( GFR) estimation in non- AmericanOrdered By: Sena Izquierdo on 10-29-2024 GFR/1.73 sq M.predicted among non-blacks MDRD (S/P/Bld) [Vol rate/Area] 20 mL/min/{1.73_m2} Low >=60 mL/min/1.7 3m 2 [facility] Hematocrit Auto (Bld) [Volum e fraction]Ordered By: Sena Izquierdo on 10-29-2024 Hematocrit (Bld) [Volume fraction] 33.6 % Low 42.0-54.0 [facility] Hemoglobin [Mass/volume] in BloodOrdered By: Sena Izquierdo on 10-29-2024 Hemoglobin (Bld) [Mass/Vol] 10.8 g/dL Low 14.0-18.0 [facility] - Chemistry and C hemistry - challengeOrdered By: Sena Izquierdo on 10-29-2024 Albumin [Mass/Vol] 1.8 g/dL Low 3.4-5.0 [facility] ALP [Catalytic activity/Vol] 128 U/L High 46-116 [facility] ALT [Catalytic activity/Vol] 26 U/L 16-63 [facility] AST [Catalytic activity/Vol] 23 U/L 15-37 [facility] Bilirubin [Mass/Vol] 0.4 mg/dL 0.2-1.0 [facility] Calcium [Mass/Vol] 8.4 mg/dL Low 8.5-10.1 [facility] Chloride [Moles/Vol] 102 mmol/L 98-107 [facility] CO2 [Moles/Vol] 23.9 mmol/L 21.0-32.0 [facility] Creatinine [Mass/Vol] 3.34 mg/dL High 0.70-1.30 [facility] GFR/1.73 sq M.predicted MDRD (S/P/Bld) [Vol rate/Area] 24 mL/min/{1.73_m2} Low >=60 mL/min/1.7 3m 2 [facility] Glucose [Mass/Vol] 112 mg/dL High 74-106 [facility] Potassium [Moles/Vol] 3.8 mmol/L 3.5-5.1 [facility] Protein [Mass/Vol] 7.7 g/dL 6.4-8.2 [facility] Sodium [Moles/Vol] 134 mmol/L Low 136-145 [facility] Urea nitrogen [Mass/Vol] 41.0 mg/dL High 7.0-18.0 [facility] Urea nitrogen/Creatinine [Mass ratio] 12.3 mg/mg [facility] - Hematology and Cell countsOrdered By: Sena Izquierdo on 10-29-2024 Immature granulocytes/100 WBC (Bld) 1.7 % High 0.0-0.5 [facility] Leukocytes [#/volume] correc miguel for nucleated erythrocytes in Blood by Automated counOrdered By: Sena Izquierdo on 10-29-2024 WBC corrected for nucl RBC Auto (Bld) [#/Vol] 18.4 10 3/uL High 4.0-11.0 [facility] Lymphocytes Auto (Bld) [#/Vo l]Ordered By: Sena Izquierdo on 10-29-2024 Lymphocytes (Bld) [#/Vol] 1.7 10 3/uL 1.2-3.8 [facility] Lymphocytes/100 WBC Auto (Bl d)Ordered By: Sena Izquierdo on 10-29-2024 Lymphocytes/100 WBC (Bld) 9.5 % Low 20.5-60.0 [facility] MCH Auto (RBC) [Entitic mass ]Ordered By: Sena Izquierdo on 10-29-2024 MCH (RBC) [Entitic mass] 28.3 pg 25.9-34.0 [facility] MCHC Auto (RBC) [Mass/Vol]Or dered By: Sena Izquierdo on 10-29-2024 MCHC (RBC) [Mass/Vol] 32.1 g/dL 29.9-35.2 [facility] MCV Auto (RBC) [Entitic vol] Ordered By: Sena Izquierdo on 10-29-2024 MCV (RBC) [Entitic vol] 88.0 fL 80.0-94.0 [facility] Monocytes Auto (Bld) [#/Vol] Ordered By: Sena Izquierdo on 10-29-2024 Monocytes (Bld) [#/Vol] 1.0 10 3/uL High 0.3-0.8 [facility] Monocytes/100 WBC Auto (Bld) Ordered By: Sena Izquierdo on 10-29-2024 Monocytes/100 WBC (Bld) 5.2 % 1.7-12.0 [facility] Neutrophils Auto (Bld) [#/Vo l]Ordered By: Sena Izquierdo on 10-29-2024 Neutrophils (Bld) [#/Vol] 14.6 10 3/uL High 1.4-6.5 [facility] Neutrophils/100 WBC Auto (Bl d)Ordered By: Sena Izquierdo on 10-29-2024 Neutrophils/100 WBC (Bld) 79.5 % High 43.0-75.0 [facility] No Panel InformationOrdered By: Sena Izquierdo on 10-29-2024 Eosinophils # (Auto) 0.7 10 3/uL 0.0-0.7 [facility] Immature Granulocyte # (Auto) 0.31 10 3/uL High 0.00-0.03 [facility] Platelet mean volume Auto (B ld) [Entitic vol]Ordered By: Sena Izquierdo on 10-29-2024 Platelet mean volume (Bld) [Entitic vol] 9.9 fL 9.5-13.5 [facility] Platelets Auto (Bld) [#/Vol] Ordered By: Sena Izquierdo on 10-29-2024 Platelets (Bld) [#/Vol] 547 10 3/uL High 150-450 [facility] RBC Auto (Bld) [#/Vol]Ordere d By: Sena Izquierdo on 10-29-2024 RBC (Bld) [#/Vol] 3.82 10 6/uL Low 4.70-6.10 [facility] Serum or plasma albumin/glob ulin mass ratioOrdered By: Sena Izquierdo on 10-29-2024 Albumin/Globulin [Mass ratio] 0.3 {ratio} [facility] Serum or plasma anion gap de terminationOrdered By: Sena Izquierdo on 10-29-2024 Anion gap [Moles/Vol] 11.9 mmol/L [facility] Glomerular filtration rate ( GFR) estimation in non- AmericanOrdered By: María Santana on 10-27-2024 GFR/1.73 sq M.predicted among non-blacks MDRD (S/P/Bld) [Vol rate/Area] 23 mL/min/{1.73_m2} Low >=60 mL/min/1.7 3m 2 [facility] - Chemistry and C hemistry - challengeOrdered By: María Santana on 10-27-2024 Calcium [Mass/Vol] 9.0 mg/dL 8.5-10.1 [facility] Chloride [Moles/Vol] 101 mmol/L 98-107 [facility] CO2 [Moles/Vol] 24.8 mmol/L 21.0-32.0 [facility] Creatinine [Mass/Vol] 2.86 mg/dL High 0.70-1.30 [facility] GFR/1.73 sq M.predicted MDRD (S/P/Bld) [Vol rate/Area] 28 mL/min/{1.73_m2} Low >=60 mL/min/1.7 3m 2 [facility] Glucose [Mass/Vol] 104 mg/dL 74-106 [facility] Potassium [Moles/Vol] 3.3 mmol/L Low 3.5-5.1 [facility] Sodium [Moles/Vol] 138 mmol/L 136-145 [facility] Urea nitrogen [Mass/Vol] 39.0 mg/dL High 7.0-18.0 [facility] Urea nitrogen/Creatinine [Mass ratio] 13.6 mg/mg [facility] Serum or plasma anion gap de terminationOrdered By: María Santana on 10-27-2024 Anion gap [Moles/Vol] 15.5 mmol/L [facility] Glomerular filtration rate ( GFR) estimation in non- AmericanOrdered By: María Santana on 10-26-2024 GFR/1.73 sq M.predicted among non-blacks MDRD (S/P/Bld) [Vol rate/Area] 22 mL/min/{1.73_m2} Low >=60 mL/min/1.7 3m 2 [facility] - Chemistry and C hemistry - challengeOrdered By: María Santana on 10-26-2024 Calcium [Mass/Vol] 8.6 mg/dL 8.5-10.1 [facility] Chloride [Moles/Vol] 100 mmol/L 98-107 [facility] CO2 [Moles/Vol] 23.4 mmol/L 21.0-32.0 [facility] Creatinine [Mass/Vol] 3.04 mg/dL High 0.70-1.30 [facility] GFR/1.73 sq M.predicted MDRD (S/P/Bld) [Vol rate/Area] 27 mL/min/{1.73_m2} Low >=60 mL/min/1.7 3m 2 [facility] Glucose [Mass/Vol] 123 mg/dL High 74-106 [facility] Potassium [Moles/Vol] 3.3 mmol/L Low 3.5-5.1 [facility] Sodium [Moles/Vol] 136 mmol/L 136-145 [facility] Urea nitrogen [Mass/Vol] 40.0 mg/dL High 7.0-18.0 [facility] Urea nitrogen/Creatinine [Mass ratio] 13.2 mg/mg [facility] Serum or plasma anion gap de terminationOrdered By: María Santana on 10-26-2024 Anion gap [Moles/Vol] 15.9 mmol/L [facility] Erythrocyte distribution wid th Auto (RBC) [Ratio]Ordered By: María Santana on 10-25-2024 Erythrocyte distribution width (RBC) [Ratio] 13.7 % 11.0-15.0 [facility] Glomerular filtration rate ( GFR) estimation in non- AmericanOrdered By: María Santana on 10-25-2024 GFR/1.73 sq M.predicted among non-blacks MDRD (S/P/Bld) [Vol rate/Area] 21 mL/min/{1.73_m2} Low >=60 mL/min/1.7 3m 2 [facility] Hematocrit Auto (Bld) [Volum e fraction]Ordered By: María Santana on 10-25-2024 Hematocrit (Bld) [Volume fraction] 31.3 % Low 42.0-54.0 [facility] Hemoglobin [Mass/volume] in BloodOrdered By: María Santana on 10-25-2024 Hemoglobin (Bld) [Mass/Vol] 10.4 g/dL Low 14.0-18.0 [facility] - Chemistry and C hemistry - challengeOrdered By: María Santana on 10-25-2024 Calcium [Mass/Vol] 8.6 mg/dL 8.5-10.1 [facility] Chloride [Moles/Vol] 100 mmol/L 98-107 [facility] CO2 [Moles/Vol] 22.3 mmol/L 21.0-32.0 [facility] Creatinine [Mass/Vol] 3.17 mg/dL High 0.70-1.30 [facility] GFR/1.73 sq M.predicted MDRD (S/P/Bld) [Vol rate/Area] 25 mL/min/{1.73_m2} Low >=60 mL/min/1.7 3m 2 [facility] Glucose [Mass/Vol] 111 mg/dL High 74-106 [facility] Potassium [Moles/Vol] 3.3 mmol/L Low 3.5-5.1 [facility] Sodium [Moles/Vol] 135 mmol/L Low 136-145 [facility] Urea nitrogen [Mass/Vol] 42.0 mg/dL High 7.0-18.0 [facility] Urea nitrogen/Creatinine [Mass ratio] 13.2 mg/mg [facility] Leukocytes [#/volume] correc miguel for nucleated erythrocytes in Blood by Automated counOrdered By: María Santana on 10-25-2024 WBC corrected for nucl RBC Auto (Bld) [#/Vol] 15.7 10 3/uL High 4.0-11.0 [facility] MCH Auto (RBC) [Entitic mass ]Ordered By: María Santana on 10-25-2024 MCH (RBC) [Entitic mass] 28.7 pg 25.9-34.0 [facility] MCHC Auto (RBC) [Mass/Vol]Or dered By: María Santana on 10-25-2024 MCHC (RBC) [Mass/Vol] 33.2 g/dL 29.9-35.2 [facility] MCV Auto (RBC) [Entitic vol] Ordered By: María Santana on 10-25-2024 MCV (RBC) [Entitic vol] 86.2 fL 80.0-94.0 [facility] No Panel InformationOrdered By: María Santana on 10-25-2024 C-Reactive Protein, Quantitative 30.92 mg/dL High <=0.50 [facility] Platelet mean volume Auto (B ld) [Entitic vol]Ordered By: María Santana on 10-25-2024 Platelet mean volume (Bld) [Entitic vol] 10.5 fL 9.5-13.5 [facility] Platelets Auto (Bld) [#/Vol] Ordered By: María Santana on 10-25-2024 Platelets (Bld) [#/Vol] 279 10 3/uL 150-450 [facility] RBC Auto (Bld) [#/Vol]Ordere d By: María Santana on 10-25-2024 RBC (Bld) [#/Vol] 3.63 10 6/uL Low 4.70-6.10 [facility] Serum or plasma anion gap de terminationOrdered By: María Santana on 10-25-2024 Anion gap [Moles/Vol] 16.0 mmol/L [facility] Basophils Auto (Bld) [#/Vol] Ordered By: María Santana on 10-24-2024 Basophils (Bld) [#/Vol] 0.1 10 3/uL 0.0-0.1 [facility] Basophils/100 WBC Auto (Bld) Ordered By: María Santana on 10-24-2024 Basophils/100 WBC (Bld) 0.4 % 0.2-2.0 [facility] Eosinophils/100 WBC Auto (Bl d)Ordered By: María Santana on 10-24-2024 Eosinophils/100 WBC (Bld) 0.4 % Low 0.9-7.0 [facility] Erythrocyte distribution wid th Auto (RBC) [Ratio]Ordered By: María Santana on 10-24-2024 Erythrocyte distribution width (RBC) [Ratio] 13.5 % 11.0-15.0 [facility] Glomerular filtration rate ( GFR) estimation in non- AmericanOrdered By: María Santana on 10-24-2024 GFR/1.73 sq M.predicted among non-blacks MDRD (S/P/Bld) [Vol rate/Area] 19 mL/min/{1.73_m2} Low >=60 mL/min/1.7 3m 2 [facility] Hematocrit Auto (Bld) [Volum e fraction]Ordered By: María Santana on 10-24-2024 Hematocrit (Bld) [Volume fraction] 34.5 % Low 42.0-54.0 [facility] Hemoglobin [Mass/volume] in BloodOrdered By: María Santana on 10-24-2024 Hemoglobin (Bld) [Mass/Vol] 11.3 g/dL Low 14.0-18.0 [facility] - Chemistry and C hemistry - challengeOrdered By: María Santana on 10-24-2024 Calcium [Mass/Vol] 8.7 mg/dL 8.5-10.1 [facility] Chloride [Moles/Vol] 100 mmol/L 98-107 [facility] CO2 [Moles/Vol] 23.7 mmol/L 21.0-32.0 [facility] Creatinine [Mass/Vol] 3.38 mg/dL High 0.70-1.30 [facility] GFR/1.73 sq M.predicted MDRD (S/P/Bld) [Vol rate/Area] 23 mL/min/{1.73_m2} Low >=60 mL/min/1.7 3m 2 [facility] Glucose [Mass/Vol] 106 mg/dL 74-106 [facility] Potassium [Moles/Vol] 3.4 mmol/L Low 3.5-5.1 [facility] Sodium [Moles/Vol] 135 mmol/L Low 136-145 [facility] Urea nitrogen [Mass/Vol] 45.0 mg/dL High 7.0-18.0 [facility] Urea nitrogen/Creatinine [Mass ratio] 13.3 mg/mg [facility] - Hematology and Cell countsOrdered By: María Santana on 10-24-2024 Immature granulocytes/100 WBC (Bld) 0.6 % High 0.0-0.5 [facility] Leukocytes [#/volume] correc miguel for nucleated erythrocytes in Blood by Automated counOrdered By: María Santana on 10-24-2024 WBC corrected for nucl RBC Auto (Bld) [#/Vol] 16.7 10 3/uL High 4.0-11.0 [facility] Lymphocytes Auto (Bld) [#/Vo l]Ordered By: María Santana on 10-24-2024 Lymphocytes (Bld) [#/Vol] 1.6 10 3/uL 1.2-3.8 [facility] Lymphocytes/100 WBC Auto (Bl d)Ordered By: María Santana on 10-24-2024 Lymphocytes/100 WBC (Bld) 9.5 % Low 20.5-60.0 [facility] MCH Auto (RBC) [Entitic mass ]Ordered By: María Santana on 10-24-2024 MCH (RBC) [Entitic mass] 28.6 pg 25.9-34.0 [facility] MCHC Auto (RBC) [Mass/Vol]Or dered By: María Santana on 10-24-2024 MCHC (RBC) [Mass/Vol] 32.8 g/dL 29.9-35.2 [facility] MCV Auto (RBC) [Entitic vol] Ordered By: María Santana on 10-24-2024 MCV (RBC) [Entitic vol] 87.3 fL 80.0-94.0 [facility] Monocytes Auto (Bld) [#/Vol] Ordered By: María Santana on 10-24-2024 Monocytes (Bld) [#/Vol] 0.8 10 3/uL 0.3-0.8 [facility] Monocytes/100 WBC Auto (Bld) Ordered By: María Santana on 10-24-2024 Monocytes/100 WBC (Bld) 4.9 % 1.7-12.0 [facility] Neutrophils Auto (Bld) [#/Vo l]Ordered By: María Santana on 10-24-2024 Neutrophils (Bld) [#/Vol] 14.1 10 3/uL High 1.4-6.5 [facility] Neutrophils/100 WBC Auto (Bl d)Ordered By: María Santana on 10-24-2024 Neutrophils/100 WBC (Bld) 84.2 % High 43.0-75.0 [facility] No Panel InformationOrdered By: María Santana on 10-24-2024 Eosinophils # (Auto) 0.1 10 3/uL 0.0-0.7 [facility] Immature Granulocyte # (Auto) 0.10 10 3/uL High 0.00-0.03 [facility] Platelet mean volume Auto (B ld) [Entitic vol]Ordered By: María Santana on 10-24-2024 Platelet mean volume (Bld) [Entitic vol] 10.8 fL 9.5-13.5 [facility] Platelets Auto (Bld) [#/Vol] Ordered By: María Santana on 10-24-2024 Platelets (Bld) [#/Vol] 257 10 3/uL 150-450 [facility] RBC Auto (Bld) [#/Vol]Ordere d By: María Santana on 10-24-2024 RBC (Bld) [#/Vol] 3.95 10 6/uL Low 4.70-6.10 [facility] Serum or plasma anion gap de terminationOrdered By: María Quintanadoris on 10-24-2024 Anion gap [Moles/Vol] 14.7 mmol/L Fi [facility] Activated partial thrombopla stin time (aPTT) in platelet poor plasma by coagulation aOrdered By: Randi Marker on 10-23-2024 aPTT Coag (PPP) [Time] 35.6 s 22.3-36.2 [facility] Basophils Auto (Bld) [#/Vol] Ordered By: Randi Marker on 10-23-2024 Basophils (Bld) [#/Vol] 0.1 10 3/uL 0.0-0.1 [facility] Basophils/100 WBC Auto (Bld) Ordered By: Randi Marker on 10-23-2024 Basophils/100 WBC (Bld) 0.2 % 0.2-2.0 [facility] Eosinophils/100 WBC Auto (Bl d)Ordered By: Randi Marker on 10-23-2024 Eosinophils/100 WBC (Bld) 0.8 % Low 0.9-7.0 [facility] Erythrocyte distribution wid th Auto (RBC) [Ratio]Ordered By: Randi Marker on 10-23-2024 Erythrocyte distribution width (RBC) [Ratio] 13.6 % 11.0-15.0 [facility] Fibrin D-dimer [Presence] in Platelet poor plasma by Latex agglutinationOrdered By: Randi Marker on 10-23-2024 Fibrin D-dimer LA Ql (PPP) 1.39 mg/L FEU Critically high <=0.59 [facility] Comment on above: RESULTS CALLED TO [...] Globulin Calc (S) [Mass/Vol] Ordered By: Randi Garcia on 10-23-2024 Globulin (S) [Mass/Vol] 5.4 g/dL [facility] Glomerular filtration rate ( GFR) estimation in non- AmericanOrdered By: Randi Marker on 10-23-2024 GFR/1.73 sq M.predicted among non-blacks MDRD (S/P/Bld) [Vol rate/Area] 17 mL/min/{1.73_m2} Low >=60 mL/min/1.7 3m 2 [facility] Hematocrit Auto (Bld) [Volum e fraction]Ordered By: Randi Marker on 10-23-2024 Hematocrit (Bld) [Volume fraction] 35.5 % Low 42.0-54.0 [facility] Hemoglobin [Mass/volume] in BloodOrdered By: Randi Marker on 10-23-2024 Hemoglobin (Bld) [Mass/Vol] 12.0 g/dL Low 14.0-18.0 [facility] INR in Platelet poor plasma by Coagulation assayOrdered By: Randi Garcia on 10-23-2024 INR Coag (PPP) [Relative time] 1.07 {INR} [facility] Comment on above: DESIRED INR:2.0-3.0 CONDITIONS NOT LISTED BELOW2.5-3.5 FOR PROSTHETIC HEART VALVE REPLACEMENT2.5-3.5 RECURRENT THROMBOSIS Laboratory - Chemistry and C hemistry - challengeOrdered By: María Santana on 10-23-2024 Bilirubin Ql (U) Negative NEGATIVE [facility] Glucose (U) [Mass/Vol] Negative NEGATIVE [facility] Ketones Ql (U) Negative NEGATIVE [facility] pH (U) 5.5 [pH] 5.0-9.0 [facility] Specific gravity (U) [Rel density] 1.025 1.005-1.02 5 [facility] Urobilinogen Qn (U) 1.0 {Abiola'U}/dL 0.2-1.0 [facility] Laboratory - Chemistry and C hemistry - challengeOrdered By: Randi Marker on 10-23-2024 Albumin [Mass/Vol] 2.4 g/dL Low 3.4-5.0 [facility] ALP [Catalytic activity/Vol] 89 U/L 46-116 [facility] ALT [Catalytic activity/Vol] 27 U/L 16-63 [facility] AST [Catalytic activity/Vol] 24 U/L 15-37 [facility] Bilirubin [Mass/Vol] 0.4 mg/dL 0.2-1.0 [facility] Calcium [Mass/Vol] 8.5 mg/dL 8.5-10.1 [facility] Chloride [Moles/Vol] 97 mmol/L Low 98-107 [facility] CO2 [Moles/Vol] 25.1 mmol/L 21.0-32.0 [facility] Creatinine [Mass/Vol] 3.79 mg/dL High 0.70-1.30 [facility] GFR/1.73 sq M.predicted MDRD (S/P/Bld) [Vol rate/Area] 21 mL/min/{1.73_m2} Low >=60 mL/min/1.7 3m 2 [facility] Glucose [Mass/Vol] 119 mg/dL High 74-106 [facility] Lactate [Moles/Vol] 1.1 mmol/L 0.4-2.0 [facility] Potassium [Moles/Vol] 3.2 mmol/L Low 3.5-5.1 [facility] Protein [Mass/Vol] 7.8 g/dL 6.4-8.2 [facility] Sodium [Moles/Vol] 132 mmol/L Low 136-145 [facility] Urea nitrogen [Mass/Vol] 46.0 mg/dL High 7.0-18.0 [facility] Urea nitrogen/Creatinine [Mass ratio] 12.1 mg/mg [facility] Laboratory - Hematology and Cell countsOrdered By: Randi Marker on 10-23-2024 Immature granulocytes/100 WBC (Bld) 0.5 % 0.0-0.5 [facility] Laboratory - Specimen inform ationOrdered By: María Santana on 10-23-2024 Appearance (U) SL CLOUDY CLEAR [facility] Color (U) LT. YELLOW YELLOW [facility] Laboratory - UrinalysisOrder ed By: María Santana on 10-23-2024 Amorphous sediment LM Ql (Urine sed) FEW [facility] Leukocyte esterase Test strip Ql (U) Negative NEGATIVE [facility] Mucus Ql (Urine sed) NONE SEEN NONE SEEN [facility] Nitrite Ql (U) Negative NEGATIVE [facility] Protein Ql (U) 100 mg/dL Abnormal NEG/TRACE [facility] Leukocytes [#/volume] correc miguel for nucleated erythrocytes in Blood by Automated counOrdered By: Randi Marker on 10-23-2024 WBC corrected for nucl RBC Auto (Bld) [#/Vol] 21.5 10 3/uL High 4.0-11.0 [facility] Lymphocytes Auto (Bld) [#/Vo l]Ordered By: Randi Marker on 10-23-2024 Lymphocytes (Bld) [#/Vol] 1.6 10 3/uL 1.2-3.8 [facility] Lymphocytes/100 WBC Auto (Bl d)Ordered By: Randi Marker on 10-23-2024 Lymphocytes/100 WBC (Bld) 7.6 % Low 20.5-60.0 [facility] MCH Auto (RBC) [Entitic mass ]Ordered By: Randi Marker on 10-23-2024 MCH (RBC) [Entitic mass] 29.3 pg 25.9-34.0 [facility] MCHC Auto (RBC) [Mass/Vol]Or dered By: Randi Marker on 10-23-2024 MCHC (RBC) [Mass/Vol] 33.8 g/dL 29.9-35.2 [facility] MCV Auto (RBC) [Entitic vol] Ordered By: Randi Marker on 10-23-2024 MCV (RBC) [Entitic vol] 86.6 fL 80.0-94.0 [facility] Monocytes Auto (Bld) [#/Vol] Ordered By: Randi Marker on 10-23-2024 Monocytes (Bld) [#/Vol] 0.7 10 3/uL 0.3-0.8 [facility] Monocytes/100 WBC Auto (Bld) Ordered By: Randi Marker on 10-23-2024 Monocytes/100 WBC (Bld) 3.3 % 1.7-12.0 [facility] Neutrophils Auto (Bld) [#/Vo l]Ordered By: Randi Marker on 10-23-2024 Neutrophils (Bld) [#/Vol] 18.9 10 3/uL High 1.4-6.5 [facility] Neutrophils/100 WBC Auto (Bl d)Ordered By: Randi Marker on 10-23-2024 Neutrophils/100 WBC (Bld) 87.6 % High 43.0-75.0 [facility] No Panel InformationOrdered By: María Santana on 10-23-2024 Urine Bacteria TRACE #/HPF Abnormal NONE SEEN [facility] Urine Culture Reflexed YES-[facility] Urine Occult Blood LARGE Abnormal NEGATIVE [facility] Urine Other Casts NONE SEEN #/LPF NONE SEEN [facility] Urine Other Crystals Seen #/HPF Abnormal None Seen [facility] Urine RBC 5-10 #/HPF Abnormal 0-2 [facility] Urine Squamous Epithelial Cells FEW #/LPF Abnormal NONE/RARE [facility] Urine WBC 2-5 #/HPF Abnormal NONE SEEN [facility] No Panel InformationOrdered By: Randi Marker on 10-23-2024 Eosinophils # (Auto) 0.2 10 3/uL 0.0-0.7 [facility] Immature Granulocyte # (Auto) 0.10 10 3/uL High 0.00-0.03 [facility] Troponin I High Sensitivity 44.8 pg/mL 4.0-76.1 [facility] Comment on above: CUT-OFF POINTS HAVE [...] volume (Bld) [Entitic vol] 10.3 fL 9.5-13.5 [facility] Platelets Auto (Bld) [#/Vol] Ordered By: Randi Marker on 10-23-2024 Platelets (Bld) [#/Vol] 257 10 3/uL 150-450 [facility] Prothrombin time (PT)Ordered By: Randi Marker on 10-23-2024 PT Coag (PPP) [Time] 11.3 s 9.0-11.6 [facility] RBC Auto (Bld) [#/Vol]Ordere d By: Randi Marker on 10-23-2024 RBC (Bld) [#/Vol] 4.10 10 6/uL Low 4.70-6.10 [facility] Serum or plasma albumin/glob ulin mass ratioOrdered By: Randi Marker on 10-23-2024 Albumin/Globulin [Mass ratio] 0.4 {ratio} [facility] Serum or plasma anion gap de terminationOrdered By: Randi Marker on 10-23-2024 Anion gap [Moles/Vol] 13.1 mmol/L [facility] Urine Cultureon 10-23-2024 Bacteria identified Cx Nom (U) No Growth 2 Days PERFORMED BY: [place] [address] PATHOLOGIST [employer] SHLOMO FIGUEROA M.D. Normal [facility] Comment on above: Performed By: #### C UU #### [address] Urine cultureOrdered By: Evangelist Santana on 10-23-2024 Bacteria identified Cx Nom (U) No Growth 2 Days [facility] US renal doppleron 5 US renal doppler [facility] [address] [place] [address] Ultrasound Report Signed Patient: Suresh Vallejo MR#: [id number] 0 : 1975 Acct:[id number] Age/Sex: 49 / M ADM Date: 08/10/24 Loc: UL Room: Type: [facility] Attending Dr: Daniel Gloria MD Ordering Provider: Daniel Gloria MD Date of Service: 08/10/24 US/US renal doppler: R/O Renal artery stenosis Copies to: Daneil Gloria MD Renal artery duplex examination performed using B-mode, color flow and spectral Doppler assessment (CPT: 46630) INDICATION: FINDINGS: Aorta: PSV 54.2 cm/s Right [...] Hastings MD,FACS,FSVS 08/11/2024 12:33 PM Dictation Location: [place] [address] Tech: Elis Sotelo Transcribed By: [facility] 08/11/24 1233 Dictated By: Edvin Hastings MD 08/11/24 1232 Signed By: 08/11/24 1233 Normal [facility] ECH echo transthoracicon ECH echo transthoracic [facility] [place] [address] Echocardiogram Signed Patient: Suresh Vallejo MR#: [id number] 0 : 1975 Acct:[id number] Age/Sex: 49 / M ADM Date: 08/10/24 Loc: Room: Type: [facility] Attending Dr: Daniel Gloria MD Ordering Provider: Daniel Gloria MD Date of Service: 08/10/2411/27/847 ECH/ECH echo transthoracic: I10 - Essential (primary) hypertension Copies to: MD Ernesto English MD, [facility] Weight: 380 lb Performed By: ALICIA [...] At: 08/10/2438 Signed By: Ernesto Ch MD, FACC 08/10/24 1041 Normal [facility] A1C with Estimated Average G [facility] 07-13-2024 Glucose [Mass/Vol] 128 mg/dL Normal [facility] Comment on above: Result Comment: PERF ORMED BY: [place] [address] PATHOLOGIST [employer] SEBASTIAN SIMMS M.D. Performed By: #### R ENACT, UMETRA, ALD #### [facility] , #### A1C WT eA, BMP #### [facility] [address] [place] [address] Aldosteroneon 07-13-2024 Aldosterone 8.6 ng/dL Normal 0.0-30.0 [facility] Comment on above: Result Comment: This test was developed and its performance characteristics determined by [facility]. It has not been cleared or approved by the Food and Drug Administration. Performed at: [address] [id number] [employer]: John Mandel MD, Phone: [phone] PERFORMED BY: [place] [id number] PATHOLOGIST [employer] SEBASTIAN SIMMS M.D. Performed By: #### R ENACT, UMETRA, ALD #### [facility] , #### A1C WTH eA, BMP #### [address] Basic Metabolic Panelon 07-02 Estimated GFR 29.915 mL/Min Normal [facility] Comment on above: Performed By: #### R ENACT, UMETRA, ALD #### [facility] , #### A1C WTH eA, BMP #### [address] Blood estimated average gluc ose determination by estimation from glycated hemoglobinOrdered By: Daniel Gloria on 07-13-2024 Average glucose Estimated from glycated hemoglobin (Bld) [Mass/Vol] Glucose mean value [Mass/volume] in Blood Estimated from glycated hemoglobin [facility] Average glucose Estimated from glycated hemoglobin (Bld) [Mass/Vol] 128 mg/dL [facility] Calcium [Mass/volume] in Ser um or PlasmaOrdered By: Daniel Gloria on 07-13-2024 Calcium [Mass/Vol] Calcium [Mass/volume ] in Serum or Plasma 8.6-10.3 [facility] Calcium [Mass/Vol] 8.8 mg/dL Normal 8.6-10.3 [facility] Comment on above: Result Comment: PERF ORMED BY: [place] [address] PATHOLOGIST [employer] SEBASTIAN SIMMS M.D. Performed By: #### R ENACT, UMETRA, ALD #### [facility] , #### A1C WTH eA, BMP #### [facility] [address] [place] [address] Carbon dioxide, total [Moles /volume] in Serum or PlasmaOrdered By: Daniel Gloria on 07-13-2024 CO2 [Moles/Vol] Carbon dioxide, tota l [Moles/volume] in Serum or Plasma 21.0-31.0 [facility] CO2 [Moles/Vol] 27.0 mmol/L Normal 21.0-31.0 [facility] Comment on above: Performed By: #### R ENACT UMETRA, ALD #### [facility] , #### A1C WTH eA, BMP #### [facility] [address] [place] [address] [place] Chloride [Moles/volume] in S brenton or PlasmaOrdered By: Daniel Gloria on 07-13-2024 Chloride [Moles/Vol] Chloride [Moles/vol ume] in Serum or Plasma 98-107 [facility] Chloride [Moles/Vol] 103 mmol/L Normal 98-107 [facility] Comment on above: Performed By: #### R ENACT, UMETRA, ALD #### [facility] , #### A1C WT eA, BMP #### [facility] [address] [place] [address] [place] Creatinine [Mass/volume] in Serum or PlasmaOrdered By: Daniel Gloria on 07-13-2024 Creatinine [Mass/Vol] Creatinine [Mass/v olume] in Serum or Plasma High 0.70-1.30 [facility] Creatinine [Mass/Vol] 2.53 mg/dL High 0.70-1.30 [facility] Comment on above: Performed By: #### R ENACT, UMETRA, ALD #### [facility] , #### A1C WTH eA, BMP #### [facility] [address] [place] [address] [place] Glucose [Mass/volume] in Ser um or PlasmaOrdered By: Daniel Gloria on 07-13-2024 Glucose [Mass/Vol] Glucose [Mass/volume ] in Serum or Plasma High 70-100 [facility] Comment on above: ADA recommended refe rence rangeRandom Glucose Reference Range is dependent on time and content of last meal. Glucose of more than 200 mg/dL in a nonstressed, ambulatory subject supports the diagnosis of Diabetes Mellitus. Glucose [Mass/Vol] 119 mg/dL High 70-100 [facility] Comment on above: ADA recommended refe rence rangeRandom Glucose Reference Range is dependent on time and content of last meal. Glucose of more than 200 mg/dL in a nonstressed, ambulatory subject supports the diagnosis of Diabetes Mellitus. Result Comment: [place] [facility] Glucose Reference Range is dependent on time and content of last meal. Glucose of more than 200 mg/dL in a nonstressed, ambulatory subject supports the diagnosis of Diabetes Mellitus. ADA recommended reference range Performed By: #### R SHANA DINERO, ALD #### [facility] , #### A1C WTH eA, BMP #### [facility] [address] [place] [address] [place] Hemoglobin A1c/Hemoglobin.to frandy in BloodOrdered By: Daniel Gloria on 07-13-2024 HbA1c (Bld) [Mass fraction] Hemoglobin A1c percentage High 4.3-5.6 [facility] Comment on above: Increased risk for d iabetes: 5.7 - 6.4diabetes: >6.4glycemic control for adults with diabetes: <7.0 HbA1c (Bld) [Mass fraction] 6.1 % High 4.3-5.6 [facility] Comment on above: Increased risk for d iabetes: 5.7 - 6.4diabetes: >6.4glycemic control for adults with diabetes: <7.0 Result Comment: Incr eased risk for diabetes: 5.7 - 6.4 diabetes: >6.4 glycemic control for adults with diabetes: <7.0 Performed By: #### R SHANA DINERO, ALD #### [facility] , #### A1C WTH eA, BMP #### [facility] [address] [place] [id number] [place] Metanephrine Urine Randomon 07-13-2024 Creatinine, Random Ur 73.3 mg/dL Normal Not Estab. [facility] Comment on above: Performed By: #### R KATHY DINEROETRA, ALD #### [facility] , #### A1C WTH eA, BMP #### [facility] [address] [place] [id number] [place] Metanephrine Random Urine 49 Normal Undefined [facility] Comment on above: Result Comment: This test was developed and its performance characteristics determined by [facility]. It has not been cleared or approved by the Food and Drug Administration. Performed By: #### R ENACT, UMETRA, ALD #### [facility] , #### A1C WTH eA, BMP #### [facility] [address] [place] [address] Metanephrine/Creatinin e Ratio 0.4 Normal 0.0-1.0 [facility] Comment on above: Result Comment: Resu lt Units: ug/mg Creat Performed at: [address] [id number] [employer]: John Mandel MD, Phone: [phone] Performed By: #### R ENACT, UMETRA, ALD #### [facility] , #### A1C WTH eA, BMP #### [address] Normetanephrine Random Urine 199 Normal Undefined [facility] Comment on above: Result Comment: This test was developed and its performance characteristics determined by [facility]. It has not been cleared or approved by the Food and Drug Administration. PERFORMED BY: [place] [address] PATHOLOGIST [employer] SEBASTIAN SIMMS M.D. Performed By: #### R ENACT, UMETRA, ALD #### [facility] , #### A1C WTH eA, BMP #### [facility] [address] [place] [address] [place] Metanephrines [Mass/volume] in 24 hour UrineOrdered By: Daniel Gloria on 07-13-2024 Metanephrines (24H U) [Mass/Vol] Metanephrines [Mass/volume] in 24 hour Urine Undefined [facility] Comment on above: This test was develo ped and its performance characteristicsdetermined by [facility]. It has not been cleared orapproved by the Food and Drug Administration. Metanephrines (24H U) [Mass/Vol] 49 ug/L Undefined [facility] Comment on above: This test was develo ped and its performance characteristicsdetermined by [facility]. It has not been cleared orapproved by the Food and Drug Administration. Metanephrines/Creatinine [Ma ss Ratio] in UrineOrdered By: Daniel Gloria on 07-13-2024 Metanephrines/Creatini ne (U) [Mass ratio] Metanephrines/Creatinine [Mass Ratio] in Urine 0.0-1.0 [facility] Comment on above: Result Units: ug/mg CreatPerformed at: - [facility] [id number] Director: John Mandel MD, Phone: [phone] Metanephrines/Creatini ne (U) [Mass ratio] 0.4 0.0-1.0 [facility] Comment on above: Result Units: ug/mg CreatPerformed at: - [facility] [id number] Director: John Mandel MD, Phone: [phone] No Panel InformationOrdered By: Daniel Gloria on 07-13-2024 Estimated GFR (CKD-EPI) 29.915 mL/Min [facility] Creatinine Clearance (Chem N/A [facility] Normetanephrine [Mass/volume ] in 24 hour UrineOrdered By: Daniel Gloria on 07-13-2024 Normetanephrine (24H U) [Mass/Vol] Normetanephrine [Mass/volume] in 24 hour Urine Undefined [facility] Comment on above: This test was develo ped and its performance characteristicsdetermined by [facility]. It has not been cleared orapproved by the Food and Drug Administration. Normetanephrine (24H U) [Mass/Vol] 199 ug/L Undefined [facility] Comment on above: This test was develo ped and its performance characteristicsdetermined by [facility]. It has not been cleared orapproved by the Food and Drug Administration. Potassium [Moles/volume] in Serum or PlasmaOrdered By: Daniel Gloria on 07-13-2024 Potassium [Moles/Vol] Potassium [Moles/v olume] in Serum or Plasma 3.5-5.1 [facility] Potassium [Moles/Vol] 3.8 mmol/L Normal 3.5-5.1 [facility] Comment on above: Performed By: #### R ENACT, UMETRA, ALD #### [facility] , #### A1C WTH eA, BMP #### [facility] [address] [place] [address] [place] Renin Activityon 07-13-2024 Renin Activity 0.247 Normal 0.167-5.38 0 [facility] Comment on above: Result Comment: This test was developed and its performance characteristics determined by [facility]. It has not been cleared or approved by the Food and Drug Administration. Performed at: [facility] [employer] [id number] [employer]: John Mandel MD, Phone: [phone] PERFORMED BY: [place] [address] PATHOLOGIST [employer] SEBASTIAN SIMMS M.D. Performed By: #### R ROSETTE, SHANA, ALD #### [facility] , #### A1C WTH eA, BMP #### [facility] [address] [place] [address] Renin activityOrdered By: Trino majano Faizan on 07-13-2024 Renin (P) [Catalytic activity/Vol] Renin activity 0.167-5.38 0 [facility] Comment on above: This test was develo ped and its performance characteristicsdetermined by [facility]. It has not been cleared orapproved by the Food and Drug Administration.Performed at: [facility] [employer] [id number] Director: John Mandel MD, Phone: [phone] Renin (P) [Catalytic activity/Vol] 0.247 ng/mL/hr 0.167-5.38 0 [facility] Comment on above: This test was develo ped and its performance characteristicsdetermined by [facility]. It has not been cleared orapproved by the Food and Drug Administration.Performed at: [address] [id number] Director: John Mandel MD, Phone: [phone] Serum or plasma aldosterone measurement (mass/volume)Ordered By: Daniel Gloria on 07-13-2024 Aldosterone [Mass/Vol] Serum or plasma a ldosterone measurement (mass/volume) 0.0-30.0 [facility] Comment on above: This test was develo ped and its performance characteristicsdetermined by [facility]. It has not been cleared orapproved by the Food and Drug Administration.Performed at: [address] [id number] Director: John Mandel MD, Phone: [phone] Aldosterone [Mass/Vol] 8.6 ng/dL 0.0-30.0 [facility] Comment on above: This test was develo ped and its performance characteristicsdetermined by [facility]. It has not been cleared orapproved by the Food and Drug Administration.Performed at: [address] [id number] Director: John Mandel MD, Phone: [phone] Serum or plasma anion gap de terminationOrdered By: Daniel Gloria on 07-13-2024 Anion gap [Moles/Vol] Serum or plasma an ion gap determination 6.0-15.0 [facility] Anion gap [Moles/Vol] 11.8 mmol/L Normal 6.0-15.0 [facility] Comment on above: Performed By: #### R ENACT, UMETRA, ALD #### [facility] , #### A1C WT eA, BMP #### [address] Sodium [Moles/volume] in Ser um or PlasmaOrdered By: Daniel Gloria on 07-13-2024 Sodium [Moles/Vol] Sodium [Moles/volume ] in Serum or Plasma 136-145 [facility] Sodium [Moles/Vol] 138 mmol/L Normal 136-145 [facility] Comment on above: Performed By: #### R SHANA DINERO, ALD #### [facility] , #### A1C WTH eA, BMP #### [facility] [address] Urea nitrogen [Mass/volume] in Serum or PlasmaOrdered By: Daniel Gloria on 07-13-2024 Urea nitrogen [Mass/Vol] Urea nitrogen [Mass/volume] in Serum or Plasma [facility] 09-25 [facility] [facility] [Mass/Vol] 40 mg/dL [facility] Comment on above: Performed By: #### R KASHTSHANA, ALD #### [facility] , #### A1C WT eA, BMP #### [address] Urine creatinine measurement (mass/volume)Ordered By: Daniel Gloria on 07-13-2024 Creatinine (U) [Mass/Vol] Creatinine [Mass/volume] in Urine Not Estab. [facility] Creatinine (U) [Mass/Vol] 73.3 mg/dL Not Estab. [facility] FPG ECG *CARDIOLOGY ONLY*on 07-08-2024 FPG ECG *CARDIOLOGY ONLY* [facility] [place] [address] [place] [address] Electrocardiograph Report Signed Patient: Suresh Vallejo MR#: [id number] 0 : 1975 Acct:[id number] Age/Sex: 49 / M ADM Date: 07/08/24 Loc: EKGCARDIO Room: Type: [facility] Attending Dr: Daniel Gloria MD Ordering Provider: [...] for LVH, may be normal variant ( [place] product ) Borderline ECG No previous ECGs available Confirmed by Daniel Gloria ([id number]) on 07/08/2024 4:29:16 PM Referred By: Electronically Signed By: Daniel Gloria Transcribed By: MUS Signed By Daniel Gloria MD 07/08/24 9086 Normal [facility] Basophils Auto (Bld) [#/Vol] on 02-09-2024 Basophils (Bld) [#/Vol] Automated basophil count 0.0-0.1 [facility] Basophils/100 WBC Auto (Bld) on 02-09-2024 Basophils/100 WBC (Bld) Automated basophil % 0.2-2.0 [facility] Eosinophils/100 WBC Auto (Bl d)on 02-09-2024 Eosinophils/100 WBC (Bld) Automated eosinophil % 0.9-7.0 [facility] Erythrocyte distribution wid th Auto (RBC) [Ratio]on 02-09-2024 Erythrocyte distribution width (RBC) [Ratio] Erythrocyte distribution width [Ratio] by Automated count 11.0-15.0 [facility] Estimated glomerular filtrat ion rate (GFR) non- Americanon 02-09-2024 GFR/1.73 sq M.predicted among non-blacks MDRD (S/P/Bld) [Vol rate/Area] Estimated glomerular filtration rate (GFR) non- Low >=60 mL/min/1.7 3m 2 [facility] Hematocrit Auto (Bld) [Volum e fraction]on 02-09-2024 Hematocrit (Bld) [Volume fraction] Hematocrit [Volume Fraction] of Blood by Automated count Low 42.0-54.0 [facility] Hemoglobin [Mass/volume] in Bloodon 02-09-2024 Hemoglobin (Bld) [Mass/Vol] Hemoglobin [Mass/volume] in Blood Low 14.0-18.0 [facility] Laboratory - Chemistry and C hemistry - challengeon 02-09-2024 Calcium [Mass/Vol] 8.6 mg/dL 8.5-10.1 [facility] Chloride [Moles/Vol] 109 mmol/L High 98-107 [facility] CO2 [Moles/Vol] 24.4 mmol/L 21.0-32.0 [facility] Creatinine [Mass/Vol] 2.50 mg/dL High 0.70-1.30 [facility] GFR/1.73 sq M.predicted MDRD (S/P/Bld) [Vol rate/Area] 33 mL/min/{1.73_m2} Low >=60 mL/min/1.7 3m 2 [facility] Glucose [Mass/Vol] 81 mg/dL 74-106 [facility] Natriuretic peptide B (Bld) [Mass/Vol] 1600.0 pg/mL Critically high <=900.0 [facility] Comment on above: RESULTS CALLED TO LAZ VELASQUEZ RN @BY [place] [phone] Potassium [Moles/Vol] 4.3 mmol/L 3.5-5.1 [facility] Sodium [Moles/Vol] 144 mmol/L 136-145 [facility] Urea nitrogen [Mass/Vol] 38.0 mg/dL High 7.0-18.0 [facility] Urea nitrogen/Creatinine [Mass ratio] 15.2 mg/mg [facility] Laboratory - Hematology and Cell countson 02-09-2024 Immature granulocytes/100 WBC (Bld) 0.1 % 0.0-0.5 [facility] Leukocytes [#/volume] correc miguel for nucleated erythrocytes in Blood by Automated counon 02-09-2024 WBC corrected for nucl RBC Auto (Bld) [#/Vol] Leukocytes [#/volume] corrected for nucleated erythrocytes in Blood by Automated coun 4.0-11.0 [facility] Lymphocytes Auto (Bld) [#/Vo l]on 02-09-2024 Lymphocytes (Bld) [#/Vol] Lymphocytes [#/volume] in Blood by Automated count 1.2-3.8 [facility] Lymphocytes/100 WBC Auto (Bl d)on 02-09-2024 Lymphocytes/100 WBC (Bld) Lymphocytes/100 leukocytes in Blood by Automated count 20.5-60.0 [facility] MCH Auto (RBC) [Entitic mass ]on 02-09-2024 MCH (RBC) [Entitic mass] MCH [Entitic mass] by Automated count 25.9-34.0 [facility] MCHC Auto (RBC) [Mass/Vol]on 02-09-2024 MCHC (RBC) [Mass/Vol] MCHC [Mass/volume] by Automated count 29.9-35.2 [facility] MCV Auto (RBC) [Entitic vol] on 02-09-2024 MCV (RBC) [Entitic vol] MCV [Entitic volume] by Automated count 80.0-94.0 [facility] Monocytes Auto (Bld) [#/Vol] on 02-09-2024 Monocytes (Bld) [#/Vol] Automated blood monocyte count 0.3-0.8 [facility] Monocytes/100 WBC Auto (Bld) on 02-09-2024 Monocytes/100 WBC (Bld) Automated monocyte % 1.7-12.0 [facility] Neutrophils Auto (Bld) [#/Vo l]on 02-09-2024 Neutrophils (Bld) [#/Vol] Neutrophils [#/volume] in Blood by Automated count 1.4-6.5 [facility] Neutrophils/100 WBC Auto (Bl d)on 02-09-2024 Neutrophils/100 WBC (Bld) Automated neutrophil % 43.0-75.0 [facility] No Panel Informationon 02-08 Eosinophils # (Auto) 0.4 10 3/uL 0.0-0.7 [facility] Immature Granulocyte # (Auto) 0.01 10 3/uL 0.00-0.03 [facility] Platelet mean volume Auto (B ld) [Entitic vol]on 02-09-2024 Platelet mean volume (Bld) [Entitic vol] Platelet mean volume [Entitic volume] in Blood by Automated count 9.5-13.5 [facility] Platelets Auto (Bld) [#/Vol] on 02-09-2024 Platelets (Bld) [#/Vol] Platelets [#/volume] in Blood by Automated count 150-450 [facility] RBC Auto (Bld) [#/Vol]on RBC (Bld) [#/Vol] Erythrocytes [#/volu me] in Blood by Automated count Low 4.70-6.10 [facility] Serum or plasma anion gap de terminationon 02-09-2024 Anion gap [Moles/Vol] Serum or plasma an ion gap determination [facility] Activated partial thrombopla stin time (aPTT) in platelet poor plasma by coagulation aon 02-08-2024 aPTT Coag (PPP) [Time] Activated partial thromboplastin time (aPTT) in platelet poor plasma by coagulation a 22.3-36.2 [facility] Basophils Auto (Bld) [#/Vol] on 02-08-2024 Basophils (Bld) [#/Vol] Automated basophil count 0.0-0.1 [facility] Basophils/100 WBC Auto (Bld) on 02-08-2024 Basophils/100 WBC (Bld) Automated basophil % 0.2-2.0 [facility] Eosinophils/100 WBC Auto (Bl d)on 02-08-2024 Eosinophils/100 WBC (Bld) Automated eosinophil % 0.9-7.0 [facility] Erythrocyte distribution wid th Auto (RBC) [Ratio]on 02-08-2024 Erythrocyte distribution width (RBC) [Ratio] Erythrocyte distribution width [Ratio] by Automated count 11.0-15.0 [facility] Estimated glomerular filtrat ion rate (GFR) non- Americanon 02-08-2024 GFR/1.73 sq M.predicted among non-blacks MDRD (S/P/Bld) [Vol rate/Area] Estimated glomerular filtration rate (GFR) non- Low >=60 mL/min/1.7 3m 2 [facility] Globulin Calc (S) [Mass/Vol] on 02-08-2024 Globulin (S) [Mass/Vol] Serum globulin measurement by calculation (mass/volume) [facility] Hematocrit Auto (Bld) [Volum e fraction]on 02-08-2024 Hematocrit (Bld) [Volume fraction] Hematocrit [Volume Fraction] of Blood by Automated count Low 42.0-54.0 [facility] Hemoglobin [Mass/volume] in Bloodon 02-08-2024 Hemoglobin (Bld) [Mass/Vol] Hemoglobin [Mass/volume] in Blood Low 14.0-18.0 [facility] INR in Platelet poor plasma by Coagulation assayon 02-08-2024 INR Coag (PPP) [Relative time] INR in Platelet poor plasma by Coagulation assay [facility] Comment on above: DESIRED INR:2.0-3.0 CONDITIONS NOT LISTED BELOW2.5-3.5 FOR PROSTHETIC HEART VALVE REPLACEMENT2.5-3.5 [facility]BOSIS Laboratory - Chemistry and C hemistry - challengeon 02-08-2024 Albumin [Mass/Vol] 2.6 g/dL Low 3.4-5.0 [facility] ALP [Catalytic activity/Vol] 98 U/L 46-116 [facility] ALT [Catalytic activity/Vol] 26 U/L 16-63 [facility] AST [Catalytic activity/Vol] 19 U/L 15-37 [facility] Bilirubin [Mass/Vol] 0.6 mg/dL 0.2-1.0 [facility] Calcium [Mass/Vol] 8.8 mg/dL 8.5-10.1 [facility] Chloride [Moles/Vol] 109 mmol/L High 98-107 [facility] CO2 [Moles/Vol] 23.6 mmol/L 21.0-32.0 [facility] Creatinine [Mass/Vol] 2.55 mg/dL High 0.70-1.30 [facility] GFR/1.73 sq M.predicted MDRD (S/P/Bld) [Vol rate/Area] 32 mL/min/{1.73_m2} Low >=60 mL/min/1.7 3m 2 [facility] Glucose [Mass/Vol] 82 mg/dL 74-106 [facility] Magnesium [Mass/Vol] 1.9 mg/dL 1.8-2.4 [facility] Natriuretic peptide B (Bld) [Mass/Vol] 4053.0 pg/mL Critically high <=900.0 [facility] Comment on above: RESULTS CALLED TO DONALDO SANTO RN @BY [place] at 0731 Potassium [Moles/Vol] 3.9 mmol/L 3.5-5.1 [facility] Protein [Mass/Vol] 7.1 g/dL 6.4-8.2 [facility] Sodium [Moles/Vol] 143 mmol/L 136-145 [facility] T4 [Mass/Vol] 6.90 ug/dL 4.50-12.10 [facility] TSH Qn 2.921 m[IU]/L 0.358-3.74 0 [facility] Urea nitrogen [Mass/Vol] 36.0 mg/dL High 7.0-18.0 [facility] Urea nitrogen/Creatinine [Mass ratio] 14.1 mg/mg [facility] Laboratory - Hematology and Cell countson 02-08-2024 Immature granulocytes/100 WBC (Bld) 0.1 % 0.0-0.5 [facility] Leukocytes [#/volume] correc miguel for nucleated erythrocytes in Blood by Automated counon 02-08-2024 WBC corrected for nucl RBC Auto (Bld) [#/Vol] Leukocytes [#/volume] corrected for nucleated erythrocytes in Blood by Automated coun 4.0-11.0 [facility] Lymphocytes Auto (Bld) [#/Vo l]on 02-08-2024 Lymphocytes (Bld) [#/Vol] Lymphocytes [#/volume] in Blood by Automated count 1.2-3.8 [facility] Lymphocytes/100 WBC Auto (Bl d)on 02-08-2024 Lymphocytes/100 WBC (Bld) Lymphocytes/100 leukocytes in Blood by Automated count 20.5-60.0 [facility] MCH Auto (RBC) [Entitic mass ]on 02-08-2024 MCH (RBC) [Entitic mass] MCH [Entitic mass] by Automated count 25.9-34.0 [facility] MCHC Auto (RBC) [Mass/Vol]on 02-08-2024 MCHC (RBC) [Mass/Vol] MCHC [Mass/volume] by Automated count 29.9-35.2 [facility] MCV Auto (RBC) [Entitic vol] on 02-08-2024 MCV (RBC) [Entitic vol] MCV [Entitic volume] by Automated count 80.0-94.0 [facility] Monocytes Auto (Bld) [#/Vol] on 02-08-2024 Monocytes (Bld) [#/Vol] Automated blood monocyte count 0.3-0.8 [facility] Monocytes/100 WBC Auto (Bld) on 02-08-2024 Monocytes/100 WBC (Bld) Automated monocyte % 1.7-12.0 [facility] Neutrophils Auto (Bld) [#/Vo l]on 02-08-2024 Neutrophils (Bld) [#/Vol] Neutrophils [#/volume] in Blood by Automated count 1.4-6.5 [facility] Neutrophils/100 WBC Auto (Bl d)on 02-08-2024 Neutrophils/100 WBC (Bld) Automated neutrophil % 43.0-75.0 [facility] No Panel Informationon 02-07 Eosinophils # (Auto) 0.3 10 3/uL 0.0-0.7 [facility] Immature Granulocyte # (Auto) 0.01 10 3/uL 0.00-0.03 [facility] Phosphorus Level 4.0 mg/dL 2.6-4.7 [facility] Platelet mean volume Auto (B ld) [Entitic vol]on 02-08-2024 Platelet mean volume (Bld) [Entitic vol] Platelet mean volume [Entitic volume] in Blood by Automated count 9.5-13.5 [facility] Platelets Auto (Bld) [#/Vol] on 02-08-2024 Platelets (Bld) [#/Vol] Platelets [#/volume] in Blood by Automated count 150-450 [facility] Prothrombin time (PT)on PT Coag (PPP) [Time] Prothrombin time (PT) 9.0- 11.6 [facility] RBC Auto (Bld) [#/Vol]on RBC (Bld) [#/Vol] Erythrocytes [#/volu me] in Blood by Automated count Low 4.70-6.10 [facility] Serum or plasma albumin/glob ulin mass ratioon 02-08-2024 Albumin/Globulin [Mass ratio] Serum or plasma albumin/globulin mass ratio [facility] Serum or plasma anion gap de terminationon 02-08-2024 Anion gap [Moles/Vol] Serum or plasma an ion gap determination [facility] Buprenorphine [Presence] in Urineon 02-07-2024 Buprenorphine Ql (U) Buprenorphine [Pres ence] in Urine NEGATIVE [facility] Comment on above: DRUG CLASS TEST [...] Bilirubin Ql (U) Negative NEGATIVE [facility] Glucose (U) [Mass/Vol] Negative NEGATIVE [facility] Ketones Ql (U) Negative NEGATIVE [facility] pH (U) 6.5 [pH] 5.0-9.0 [facility] Specific gravity (U) [Rel density] 1.015 1.005-1.02 5 [facility] Urobilinogen Qn (U) 0.2 {Abiola'U}/dL 0.2-1.0 [facility] Magnesium [Mass/Vol] 2.1 mg/dL 1.8-2.4 [facility] Natriuretic peptide B (Bld) [Mass/Vol] 3918.0 pg/mL Critically high <=900.0 [facility] Comment on above: RESULTS CALLED TO RICHIE Tang @BY Rogelio [place] 1934 Laboratory - Drug toxicology on 02-07-2024 Amphetamines Ql (U) Negative NEGATIVE [facility] Benzodiazepines Ql (U) Negative NEGATIVE [facility] Cocaine Ql (U) Negative NEGATIVE [facility] Opiates Ql (U) Negative NEGATIVE [facility] Phencyclidine Ql (U) Negative NEGATIVE [facility] Laboratory - Specimen inform ationon 02-07-2024 Appearance (U) CLEAR CLEAR [facility] Color (U) LT. YELLOW YELLOW [facility] Laboratory - Urinalysison Leukocyte esterase Test strip Ql (U) Negative NEGATIVE [facility] Mucus Ql (Urine sed) NONE SEEN NONE SEEN [facility] Nitrite Ql (U) Negative NEGATIVE [facility] Protein Ql (U) >=300 mg/dL Abnormal NEG/TRACE [facility] Methadone [Presence] in Urin e by Screen methodon 02-07-2024 Methadone Screen Ql (U) Methadone [Presence] in Urine by Screen method NEGATIVE [facility] No Panel Informationon 02-06 Urine Bacteria TRACE #/HPF Abnormal NONE SEEN [facility] Urine Barbiturates Screen Negative NEGATIVE [facility] Urine Marijuana (THC) Screen Negative NEGATIVE [facility] Urine Methamphetamines Screen Negative NEGATIVE [facility] Urine Occult Blood SMALL Abnormal NEGATIVE [facility] Urine Other Casts NONE SEEN #/LPF NONE SEEN Fi [facility] Urine Other Crystals None Seen #/HPF None Seen [facility] Urine RBC 0-2 #/HPF 0-2 [facility] Urine Squamous Epithelial Cells NONE SEEN #/LPF NONE/RARE [facility] Urine WBC 0-2 #/HPF Abnormal NONE SEEN [facility] Troponin I High Sensitivity 68.6 pg/mL 4.0-76.1 [facility] Comment on above: CUT-OFF POINTS HAVE [...] (U) [Mass/Vol] Urine tricyclic antidepressant measurement NEGATIVE [facility] oxyCODONE+oxyMORphone [Prese nce] in Urine by Screen methodon 02-07-2024 oxyCODONE+oxyMORphone Screen Ql (U) oxyCODONE+oxyMORphone [Presence] in Urine by Screen method NEGATIVE [facility] US venous duplex LE BIon US venous duplex LE BI [facility] [place] [address] [place] [address] Ultrasound Report Signed Patient: Suresh Vallejo MR#: [id number] 0 : 1975 Acct:[id number] Age/Sex: 49 / M ADM Date: 02/05/24 Loc: Room: Type: [facility] CLI Attending Dr: Edvin Hastings MD Ordering Provider: [...] Edvin Hastings MD02/06/2024 4:14 PM [facility] Tech: Oksana Lucia Transcribed By: LAKSHMI 02/06/24 161 Dictated By: Edvin Hastings MD 02/06/24 161 Signed By: 02/06/24 161 Normal [facility] US Lower Extremity Venous [...] Crow MD Transcribed by: MARTINEZ Technologist: AARON [facility] US Lower Extremity Venous Du plex [...] Kenn Crow MD Transcribed by: MARTINEZ Technologist: [facility] CHEMISTRYOrdered By: [facility] on 10-10-2022 25-hydroxyvitamin D3 [Mass/Vol] 13.6 [...] 02-07-2021 BASO # 0.1 103/ul Normal 0.0-0.1 [facility] Comment on above: Performed By: #### C BC #### [facility] [address] [place] [address] Dr. Aubrey Tatum Basophils/100 WBC (Bld) 0.8 % Normal 0.2-2.0 [facility] Comment on above: Performed By: #### C BC #### [facility] [address] [place] [address] [address] Aubrey Tatum EO # 0.1 103/ul Normal 0.0-0.7 [facility] Comment on above: Performed By: #### C BC #### [facility] [address] [place] [address] Dr. Aubrey Tatum Eosinophils/100 WBC (Bld) 1.3 % Normal 0.9-7.0 [facility] Comment on above: Performed By: #### C BC #### [facility] [address] [place] [address] Dr. Aubrey Tatum Erythrocyte distribution width (RBC) [Ratio] 13.6 % Normal 11.0-15.0 [facility] Comment on above: Performed By: #### C BC #### [facility] [address] [place] [address] Dr. Aubrey Tatum Hematocrit (Bld) [Volume fraction] 41.0 % Critically low 42.0-54.0 [facility] Comment on above: Performed By: #### C BC #### [facility] [address] [place] [address] Dr. Aubrey Tatum Hemoglobin (Bld) [Mass/Vol] 13.0 g/dL Critically low 14.0-18.0 [facility] Comment on above: Performed By: #### C BC #### [facility] [address] [place] [address] Dr. Aubrey Tatum IG # 0.02 10e3/ul Normal 0.00-0.03 [facility] Comment on above: Performed By: #### C BC #### [facility] [address] [place] [address] Dr. Aubrey Tatum IG % 0.2 % Normal 0.0-0.5 [facility] Comment on above: Performed By: #### C BC #### [facility] [address] [place] [address] Dr. Aubrey Tatum LYMPH # 2.0 103/ul Normal 1.2-3.8 [facility] Comment on above: Performed By: #### C BC #### [facility] [address] [place] [address] Dr. Aubrey Tatum Lymphocytes/100 WBC (Bld) 21.8 % Normal 20.5-60.0 [facility] Comment on above: Performed By: #### C BC #### [facility] [address] [place] [address] Dr. Aubrey Tatum MANUAL DIFF REQ NO Normal [facility] Comment on above: Performed By: #### C BC #### [facility] [address] [place] [address] Dr. Aubrey Tatum MCH (RBC) [Entitic mass] 28.1 pg Normal 25.9-34.0 [facility] Comment on above: Performed By: #### C BC #### [facility] [address] [place] [address] Dr. Aubrey Tatum MCHC (RBC) [Mass/Vol] 31.7 g/dL Normal 29.9-35.2 [facility] Comment on above: Performed By: #### C BC #### [facility] [address] [place] [address] Dr. Aubrey Tatum MCV (RBC) [Entitic vol] 88.7 fL Normal 80.0-94.0 [facility] Comment on above: Performed By: #### C BC #### [facility] [address] [place] [address] Dr. Aubrey Tatum MONO # 0.5 103/ul Normal 0.3-0.8 [facility] Comment on above: Performed By: #### C BC #### [facility] [address] [place] [address] Dr. Aubrey Tatum Monocytes/100 WBC (Bld) 5.7 % Normal 1.7-12.0 [facility] Comment on above: Performed By: #### C BC #### [facility] [address] [place] [address] Dr. Aubrey Tatum NEUT # 6.4 103/ul Normal 1.4-6.5 [facility] Comment on above: Performed By: #### C BC #### [facility] [address] [place] [address] Dr. Aubrey Tatum Neutrophils/100 WBC (Bld) 70.2 % Normal 43.0-75.0 [facility] Comment on above: Performed By: #### C BC #### [facility] [address] [place] [address] Dr. Aubrey Tatum Platelet mean volume (Bld) [Entitic vol] 9.6 fL Normal 9.5-13.5 [facility] Comment on above: Performed By: #### C BC #### [facility] [address] [place] [address] Dr. Aubrey Tatum PLT 334 103/ul Normal 150-450 [facility] Comment on above: Performed By: #### C BC #### [facility] [address] [place] [address] Dr. Aubrey Tatum RBC 4.62 106/ul Critically low 4.70-6.10 [facility] Comment on above: Performed By: #### C BC #### [facility] [address] [place] [address] Dr. Aubrey Tatum WBC 9.1 103/ul Normal 4.0-11.0 [facility] Comment on above: Performed By: #### C BC #### [facility] [address] [place] [address] Dr. Aubrey aTtum FREE T3on 02-07-2021 FREE T3 2.57 pg/mlL Critically low 2.77-5.27 [facility] Comment on above: Performed By: #### L IPID, CMP, FT3, TSH #### [facility] [address] [place] [address] Dr. Aubrey Tatum FREE T4on 02-07-2021 Free T4 [Mass/Vol] 0.93 ng/dL Normal 0.78-2.19 [facility] Comment on above: Performed By: #### F T4 #### [facility] [address] [place] [address] Dr. Aubrey Tatum LIPID PROFILEon 02-07-2021 CHOL-HDL RATIO NORM SEE BELOW Normal [facility] Comment on above: Result Comment: 3.3 - 4.4 LOW RISK 4.4 - 7.1 AVERAGE RISK 7.1 - 11.0 MODERATE RISK >11.0 HIGH RISK Performed By: #### L IPID, CMP, FT3, TSH #### [facility] [address] [address] [address] Aubrey Tatum Cholesterol [Mass/Vol] 155 mg/dL Normal <=200 Th [facility] Comment on above: Performed By: #### L IPID, CMP, FT3, TSH #### [facility] [address] [address] [address] Aubrey Tatum Cholesterol in HDL [Mass/Vol] 51 mg/dL Normal [facility] Comment on above: Performed By: #### L IPID, CMP, FT3, TSH #### [facility] [address] [address] [address] Aubrey Tatum Cholesterol in LDL [Mass/Vol] 94.2 mg/dL Normal [facility] Comment on above: Performed By: #### L IPID, CMP, FT3, TSH #### [facility] [address] [address] [address] Aubrey Tatum Cholesterol.total/Chol esterol in HDL [Mass ratio] 3.0 {ratio} Normal [facility] Comment on above: Performed By: #### L IPID, CMP, FT3, TSH #### [facility] [address] [address] [address] Aubrey Tatum HDL NORMAL > or = 60 mg/dl - LO W CARDIOVASCULAR RISK <40 mg/dl - HIGH CARDIOVASCULAR RISK Normal [facility] Comment on above: Performed By: #### L IPID, CMP, FT3, TSH #### [facility] [address] [address] [address] Aubrey Tatum LDL CALC NORMAL SEE BELOW Normal [facility] Comment on above: Result Comment: <100 mg/dl OPTIMAL 100 - 129 mg/dl NEAR OR ABOVE OPTIMAL 130 - 159 mg/dl BORDERLINE HIGH 160 - 189 mg/dl HIGH >190 mg/dl VERY HIGH Performed By: #### L IPID, CMP, FT3, TSH #### [facility] [address] [address] [address] Aubrey Tatum Triglyceride [Mass/Vol] 49 mg/dL Normal <=150 [facility] Comment on above: Performed By: #### L IPID, CMP, FT3, TSH #### [facility] [address] [address] [address] Aubrey Tatum VLDL CALC 9.8 mg/dL Normal [facility] Comment on above: Performed By: #### L IPID, CMP, FT3, TSH #### [facility] [address] [place] [address] Dr. Aubrey Tatum PROF 14(COMP METB)on 021 Albumin [Mass/Vol] 3.1 g/dL Critically low 3.5-5.0 [facility] Comment on above: Performed By: #### L IPID, CMP, FT3, TSH #### [facility] [address] [place] [address] Dr. Aubrey Tatum Albumin/Globulin [Mass ratio] 0.7 {ratio} Normal [facility] Comment on above: Performed By: #### L IPID, CMP, FT3, TSH #### [facility] [address] [place] [address] Dr. Aubrey Tatum ALP [Catalytic activity/Vol] 86 U/L Normal 38-126 [facility] Comment on above: Performed By: #### L IPID, CMP, FT3, TSH #### [facility] [address] [place] [address] Dr. Aubrey Tatum ALT [Catalytic activity/Vol] 45 U/L Normal 21-72 [facility] Comment on above: Performed By: #### L IPID, CMP, FT3, TSH #### [facility] [address] [place] [address] Dr. Aubrey Tatum Anion gap [Moles/Vol] 11.7 mmol/L Normal [facility] Comment on above: Performed By: #### L IPID, CMP, FT3, TSH #### [facility] [address] [place] [address] Dr. Aubrey Tatum AST [Catalytic activity/Vol] 26 U/L Normal 17-59 [facility] Comment on above: Performed By: #### L IPID, CMP, FT3, TSH #### [facility] [address] [place] [address] Dr. Aubrey Tatum Bilirubin [Mass/Vol] 0.4 mg/dL Normal 0.2-1.3 [facility] Comment on above: Performed By: #### L IPID, CMP, FT3, TSH #### [facility] [address] [place] [address] Dr. Aubrey Tatum Calcium [Mass/Vol] 9.0 mg/dL Normal 8.4-10.2 [facility] Comment on above: Performed By: #### L IPID, CMP, FT3, TSH #### [facility] [address] [place] [address] Dr. Aubrey Tatum Chloride [Moles/Vol] 103 mmol/L Normal 98-107 [facility] Comment on above: Performed By: #### L IPID, CMP, FT3, TSH #### [facility] [address] [place] [address] Dr. Aubrey Tatum CO2 [Moles/Vol] 27.9 mmol/L Normal 22.0-30.0 [facility] Comment on above: Performed By: #### L IPID, CMP, FT3, TSH #### [facility] [address] [place] [address] Dr. Aubrey Tatum Creatinine [Mass/Vol] 1.31 mg/dL Critically high 0.66-1.25 [facility] Comment on above: Performed By: #### L IPID, CMP, FT3, TSH #### [facility] [address] [place] [address] Dr. Aubrey Tatum EGFR-AF GREEK >60 Normal >=60 [facility] Comment on above: Performed By: #### L IPID, CMP, FT3, TSH #### [facility] [address] [place] [address] Dr. Aubrey Tatum EGFR-NON AF GREEK 58 mL/min/1.73m2 Critically low >=60 [facility] Comment on above: Performed By: #### L IPID, CMP, FT3, TSH #### [facility] [address] [place] [address] Dr. Aubrey Tatum Globulin (S) [Mass/Vol] 4.5 g/dL Normal [facility] Comment on above: Performed By: #### L IPID, CMP, FT3, TSH #### [facility] [address] [address] [address] Aubrey Tatum Glucose [Mass/Vol] 85 mg/dL Normal 74-106 [facility] Comment on above: Performed By: #### L IPID, CMP, FT3, TSH #### [facility] [address] [address] [address] Aubrey Tatum Potassium [Moles/Vol] 3.6 mmol/L Normal 3.4-5.0 [facility] Comment on above: Performed By: #### L IPID, CMP, FT3, TSH #### [facility] [address] [place] [address] Dr. Aubrey Tatum Protein [Mass/Vol] 7.6 g/dL Normal 6.1-8.2 [facility] Comment on above: Performed By: #### L IPID, CMP, FT3, TSH #### [facility] [address] [place] [address] Dr. Aubrey Tatum Sodium [Moles/Vol] 139 mmol/L Normal 137-145 [facility] Comment on above: Performed By: #### L IPID, CMP, FT3, TSH #### [facility] [address] [place] [address] Dr. Aubrey Tatum Urea nitrogen [Mass/Vol] 26.0 mg/dL Critically high 9.0-20.0 [facility] Comment on above: Performed By: #### L IPID, CMP, FT3, TSH #### [facility] [address] [address] [address] Aubrey Tatum Urea nitrogen/Creatinine [Mass ratio] 19.8 mg/mg Normal [facility] Comment on above: Performed By: #### L IPID, CMP, FT3, TSH #### [facility] [address] [place] [address] Dr. Aubrey Tatum TSHon 02-07-2021 TSH 2.234 uIU/mL Normal 0.470-4.68 0 [facility] Comment on above: Performed By: #### L IPID, CMP, FT3, TSH #### [facility] [address] [place], [place] [address] Dr. Aubrey Tatum TSH RANGE SEE BELOW Normal [facility] Comment on above: Result Comment: <0.3 4 UIU/ml HYPERTHYROID 0.34-5.60 UIU/ml EUTHYROID >5.60 UIU/ml HYPOTHYROID Performed By: #### L IPID, CMP, FT3, TSH #### [facility] [address] [place], [place] [address] Dr. Aubrey Tatum Vital Signs Date Time Vital Sign Value Performing Clinician Facility 11-13-2024 11:52-0400 Body height 177.8 cm Juvencio Rosa DO Work Phone: [facility] 11-13-2024 11:52-0400 Body mass index (BMI) [Ratio] 53.1 kg/m2 Juvencio Rosa DO Work Phone: [facility] 11-13-2024 11:52-0400 Body weight 167.82 kg Juvencio Rosa DO Work Phone: [facility] 11-13-2024 11:52-0400 Diastolic blood pressure 80 mm[Hg] Juvencio Rosa DO Work Phone: [facility] 11-13-2024 11:52-0400 Heart rate 78 /min Juvencio Rosa DO Work Phone: [facility] 11-13-2024 11:52-0400 Respiratory rate 18 /min Juvencio Rosa DO Work Phone: [facility] 11-13-2024 11:52-0400 SaO2% (BldA) [Mass fraction] 98 % Juvencio Rosa DO Work Phone: [facility] 11-13-2024 11:52-0400 Systolic blood pressure 132 mm[Hg] Juvencio Rosa DO Work Phone: [facility] 11-11-2024 11:18-0400 Body temperature 97.8 [degF] Juvencio Rosa DO Work Phone: [facility] 11-11-2024 11:18-0400 Diastolic blood pressure 88 mm[Hg] Juvencio Rosa DO Work Phone: [facility] 11-11-2024 11:18-0400 Heart rate 82 /min Juvencio Rosa DO Work Phone: [facility] 11-11-2024 11:18-0400 Respiratory rate 16 /min Juvencio Orsa DO Work Phone: [facility] 11-11-2024 11:18-0400 SaO2% (BldA) [Mass fraction] 98 % Juvencio Rosa DO Work Phone: [facility] 11-11-2024 11:18-0400 Systolic blood pressure 132 mm[Hg] Juvencio Rosa DO Work Phone: [facility] 11-09-2024 14:03-0400 Body height 177.8 cm Juvencio Rosa DO Work Phone: [facility] 11-09-2024 14:03-0400 Body mass index (BMI) [Ratio] 53.6 kg/m2 Juvencio Rosa DO Work Phone: [facility] 11-09-2024 14:03-0400 Body temperature 98 [degF] Juvencio Rosa DO Work Phone: [facility] 11-09-2024 14:03-0400 Body weight 169.64 kg Juvencio Rosa DO Work Phone: [facility] 11-09-2024 14:03-0400 Diastolic blood pressure 79 mm[Hg] Juvencio Rosa DO Work Phone: [facility] 11-09-2024 14:03-0400 Heart rate 77 /min Juvencio Rosa DO Work Phone: [facility] 11-09-2024 14:03-0400 Systolic blood pressure 139 mm[Hg] Juvencio Rosa DO Work Phone: [facility] 11-03-2024 14:42-0400 Body height 177.8 cm Juvencio Rosa DO Work Phone: [facility] 11-03-2024 14:42-0400 Body mass index (BMI) [Ratio] 53.6 kg/m2 Juvencio Rosa DO Work Phone: [facility] 11-03-2024 14:42-0400 Body temperature 98.2 [degF] Juvencio Rosa DO Work Phone: [facility] 11-03-2024 14:42-0400 Body weight 169.41 kg Juvencio Rosa DO Work Phone: [facility] 11-03-2024 14:42-0400 Diastolic blood pressure 80 mm[Hg] Juvencio Rosa DO Work Phone: [facility] 11-03-2024 14:42-0400 Heart rate 68 /min Juvencio Rosa DO Work Phone: [facility] 11-03-2024 14:42-0400 Respiratory rate 20 /min Juvencio Rosa DO Work Phone: [facility] 11-03-2024 14:42-0400 SaO2% (BldA) [Mass fraction] 98 % Juvencio Rosa DO Work Phone: [facility] 11-03-2024 14:42-0400 Systolic blood pressure 150 mm[Hg] Juvencio Rosa DO Work Phone: [facility] 09-24-2024 15:38-0400 Body temperature 97.5 [degF] Juvencio Rosa DO Work Phone: [facility] 09-24-2024 15:38-0400 Diastolic blood pressure 98 mm[Hg] Juvencio Rosa DO Work Phone: [facility] 09-24-2024 15:38-0400 Heart rate 78 /min Juvencio Rosa DO Work Phone: [facility] 09-24-2024 15:38-0400 SaO2% (BldA) [Mass fraction] 97 % Juvencio Rosa DO Work Phone: [facility] 09-24-2024 15:38-0400 Systolic blood pressure 190 mm[Hg] Juvencio Rosa DO Work Phone: [facility] 09-17-2024 15:37-0400 Body height 177.8 cm Juvencio Rosa DO Work Phone: [facility] 09-17-2024 15:37-0400 Body mass index (BMI) [Ratio] 55.1 kg/m2 Juvencio Rosa DO Work Phone: [facility] 09-17-2024 15:37-0400 Body temperature 99 [degF] Juvencio Rosa DO Work Phone: [facility] 09-17-2024 15:37-0400 Body weight 174.34 kg Juvencio Rosa DO Work Phone: [facility] 09-17-2024 15:37-0400 Diastolic blood pressure 100 mm[Hg] Juvencio Rosa DO Work Phone: [facility] 09-17-2024 15:37-0400 Heart rate 74 /min Juvencio Rosa DO Work Phone: [facility] 09-17-2024 15:37-0400 Respiratory rate 18 /min Juvencio Rosa DO Work Phone: [facility] 09-17-2024 15:37-0400 SaO2% (BldA) [Mass fraction] 96 % Juvencio Rosa DO Work Phone: [facility] 09-17-2024 15:37-0400 Systolic blood pressure 152 mm[Hg] Juvencio Rosa DO Work Phone: [facility] 07-08-2024 15:21-0400 Body height 177.8 cm Juvencio Rosa DO Work Phone: [facility] 07-08-2024 15:21-0400 Body mass index (BMI) [Ratio] 55.2 kg/m2 Juvencio Rosa DO Work Phone: [facility] 07-08-2024 15:21-0400 Body weight 174.63 kg Juvencio Rosa DO Work Phone: [facility] 07-08-2024 15:21-0400 Diastolic blood pressure 80 mm[Hg] Juvencio Rosa DO Work Phone: [facility] 07-08-2024 15:21-0400 Heart rate 95 /min Juvencio Rosa DO Work Phone: [facility] 07-08-2024 15:21-0400 Respiratory rate 18 /min Juvencio Rosa DO Work Phone: [facility] 07-08-2024 15:21-0400 SaO2% (BldA) [Mass fraction] 95 % Juvencio Rosa DO Work Phone: [facility] 07-08-2024 15:21-0400 Systolic blood pressure 128 mm[Hg] Juvencio Rosa DO Work Phone: [facility] 06-18-2024 15:39-0400 Body height 177.8 cm Juvencio Rosa DO Work Phone: [facility] 06-18-2024 15:39-0400 Body mass index (BMI) [Ratio] 54.1 kg/m2 Juvencio Rosa DO Work Phone: [facility] 06-18-2024 15:39-0400 Body temperature 97.5 [degF] Juvencio Rosa DO Work Phone: [facility] 06-18-2024 15:39-0400 Body weight 171 kg Juvencio Rosa DO Work Phone: [facility] 06-18-2024 15:39-0400 Diastolic blood pressure 78 mm[Hg] Juvencio Rosa DO Work Phone: [facility] 06-18-2024 15:39-0400 Heart rate 60 /min Juvencio Rosa DO Work Phone: [facility] 06-18-2024 15:39-0400 SaO2% (BldA) [Mass fraction] 99 % Juvencio Rosa DO Work Phone: [facility] 06-18-2024 15:39-0400 Systolic blood pressure 160 mm[Hg] Juvencio Rosa DO Work Phone: [facility] 06-10-2024 15:34-0400 Body height 177.8 cm [facility] 06-10-2024 15:34-0400 Body mass index (BMI) [Ratio] 54.2 kg/m2 [facility] 06-10-2024 15:34-0400 Body temperature 97.8 [degF] [facility] 06-10-2024 15:34-0400 Body weight 171.45 kg [facility] 06-10-2024 15:34-0400 Diastolic blood pressure 100 mm[Hg] [facility] 06-10-2024 15:34-0400 Heart rate 62 /min [facility] 06-10-2024 15:34-0400 Respiratory rate 18 /min [facility] 06-10-2024 15:34-0400 SaO2% (BldA) [Mass fraction] 98 % [facility] 06-10-2024 15:34-0400 Systolic blood pressure 142 mm[Hg] [facility] 03-11-2024 15:38-0500 Body height 177.8 cm Juvencio Rosa DO Work Phone: [facility] 03-11-2024 15:38-0500 Body mass index (BMI) [Ratio] 52.6 kg/m2 Juvencio Rosa DO Work Phone: [facility] 03-11-2024 15:38-0500 Body temperature 97.2 [degF] Juvencio Rosa DO Work Phone: [facility] 03-11-2024 15:38-0500 Body weight 166.46 kg Juvencio Rosa DO Work Phone: [facility] 03-11-2024 15:38-0500 Diastolic blood pressure 88 mm[Hg] Juvencio Rosa DO Work Phone: [facility] 03-11-2024 15:38-0500 Heart rate 62 /min Juvencio Rosa DO Work Phone: [facility] 03-11-2024 15:38-0500 Respiratory rate 18 /min Juvencio Rosa DO Work Phone: [facility] 03-11-2024 15:38-0500 SaO2% (BldA) [Mass fraction] 97 % Juvencio Rosa DO Work Phone: [facility] 03-11-2024 15:38-0500 Systolic blood pressure 122 mm[Hg] Juvencio Rosa DO Work Phone: [facility] 02-10-2024 15:08-0500 Body height 177.8 cm Juvencio Rosa DO Work Phone: [facility] 02-10-2024 15:08-0500 Body mass index (BMI) [Ratio] 54.5 kg/m2 Juvencio Rosa DO Work Phone: [facility] 02-10-2024 15:08-0500 Body temperature 98.2 [degF] Juvencio Rosa DO Work Phone: [facility] 02-10-2024 15:08-0500 Body weight 172.36 kg Juvencio Rosa DO Work Phone: [facility] 02-10-2024 15:08-0500 Diastolic blood pressure 112 mm[Hg] Juvencio Rosa DO Work Phone: [facility] 02-10-2024 15:08-0500 Heart rate 59 /min Juvencio Rosa DO Work Phone: [facility] 02-10-2024 15:08-0500 Respiratory rate 18 /min Juvencio Rosa DO Work Phone: [facility] 02-10-2024 15:08-0500 SaO2% (BldA) [Mass fraction] 99 % Juvencio Rosa DO Work Phone: [facility] 02-10-2024 15:08-0500 Systolic blood pressure 170 mm[Hg] Juvencio Rosa DO Work Phone: [facility] 01-16-2024 15:20-0500 Body height 177.8 cm [facility] 01-16-2024 15:20-0500 Body mass index (BMI) [Ratio] 52.4 kg/m2 [facility] 01-16-2024 15:20-0500 Body temperature 97.8 [degF] [facility] 01-16-2024 15:20-0500 Body weight 166 kg [facility] 01-16-2024 15:20-0500 Diastolic blood pressure 78 mm[Hg] [facility] 01-16-2024 15:20-0500 Heart rate 72 /min [facility] 01-16-2024 15:20-0500 Respiratory rate 16 /min [facility] 01-16-2024 15:20-0500 SaO2% (BldA) [Mass fraction] 98 % [facility] 01-16-2024 15:20-0500 Systolic blood pressure 124 mm[Hg] [facility] 2024 15:17-0400 Body height 177.8 cm [facility] 2024 15:17-0400 Body mass index (BMI) [Ratio] 52.4 kg/m2 [facility] 2024 15:17-0400 Body temperature 98.6 [degF] [facility] 2024 15:17-0400 Body weight 166 kg [facility] 2024 15:17-0400 Diastolic blood pressure 94 mm[Hg] [facility] 2024 15:17-0400 Heart rate 74 /min [facility] 2024 15:17-0400 Respiratory rate 16 /min [facility] 2024 15:17-0400 SaO2% (BldA) [Mass fraction] 98 % [facility] 2024 15:17-0400 Systolic blood pressure 158 mm[Hg] [facility] 12-25-2023 15:18-0400 Diastolic blood pressure 100 mm[Hg] [facility] 12-25-2023 15:18-0400 Systolic blood pressure 152 mm[Hg] [facility] 12-25-2023 15:15-0400 Body height 177.8 cm [facility] 12-25-2023 15:15-0400 Body mass index (BMI) [Ratio] 52.6 kg/m2 [facility] 12-25-2023 15:15-0400 Body weight 166.46 kg [facility] 12-25-2023 15:15-0400 Heart rate 70 /min [facility] 12-25-2023 15:15-0400 Respiratory rate 18 /min [facility] 12-25-2023 15:15-0400 SaO2% (BldA) [Mass fraction] 98 % [facility] 11-06-2022 16:30-0400 Body height 177.8 cm Juvencio Lee Other [employer] Other 09-05-2023 16:30-0400 Body mass index (BMI) [Ratio] 49.93 kg/m2 Juvencio Rosa Other [employer] Other 11-06-2022 16:30-0400 Body temperature 97.7 [degF] Juvencio Rosa Other [employer] Other 11-06-2022 16:30-0400 Body weight 157.85 kg Juvencio Rosa Other [employer] Other 11-06-2022 16:30-0400 Diastolic blood pressure 74 mm[Hg] Juvencio Rosa Other [employer] Other 11-06-2022 16:30-0400 Respiratory rate 20 /min Juvencio Rosa Other [employer] Other 11-06-2022 16:30-0400 SaO2% (BldA) [Mass fraction] 97 % Juvencio Rosa Other [employer] Other 11-06-2022 16:30-0400 Systolic blood pressure 170 mm[Hg] Juvencio Rosa Other [employer] Other 10-24-2022 15:15-0400 Body height 177.8 cm Michelle Ibeth Other [employer] Other 10-24-2022 15:15-0400 Body mass index (BMI) [Ratio] 50.64 kg/m2 Michelle Ibeth Other [employer] Other 10-24-2022 15:15-0400 Body weight 160.12 kg Michelle Ibeth Other [employer] Other 10-24-2022 15:15-0400 Diastolic blood pressure 95 mm[Hg] Michelle Ibeth Other [employer] Other 10-24-2022 15:15-0400 SaO2% (BldA) [Mass fraction] 97 % Michelle Ibeth Other [employer] Other 10-24-2022 15:15-0400 Systolic blood pressure 153 mm[Hg] Michelle Ibeth Other [employer] Other 05-02-2022 16:30-0500 Body height 177.8 cm Juvencio Rosa Other [employer] Other 05-02-2022 16:30-0500 Body mass index (BMI) [Ratio] 53.94 kg/m2 Juvencio Rosa Other [employer] Other 05-02-2022 16:30-0500 Body temperature 97.5 [degF] Ujvencio Rosa Other [employer] Other 05-02-2022 16:30-0500 Body weight 170.55 kg Juvencio Rosa Other [employer] Other 05-02-2022 16:30-0500 Diastolic blood pressure 90 mm[Hg] Juvencio Rosa Other [employer] Other 05-02-2022 16:30-0500 Respiratory rate 20 /min Juvencio Rosa Other [employer] Other 05-02-2022 16:30-0500 SaO2% (BldA) [Mass fraction] 97 % Juvencio Rosa Other [employer] Other 05-02-2022 16:30-0500 Systolic blood pressure 150 mm[Hg] Juvencio Rosa Other [employer] Other 01-31-2022 19:45-0500 Body height 177.8 cm Juvencio Rosa Other [employer] Other 01-31-2022 19:45-0500 Body mass index (BMI) [Ratio] 54.95 kg/m2 Juvencio Rosa Other [employer] Other 01-31-2022 19:45-0500 Body temperature 99.1 [degF] Juvencio Rosa Other [employer] Other 01-31-2022 19:45-0500 Body weight 173.73 kg Juvencio Rosa Other [employer] Other 01-31-2022 19:45-0500 Diastolic blood pressure 92 mm[Hg] Juvencio Rosa Other [employer] Other 01-31-2022 19:45-0500 Respiratory rate 20 /min Juvencio Rosa Other [employer] Other 01-31-2022 19:45-0500 SaO2% (BldA) [Mass fraction] 98 % Juvencio Rosa Other [employer] Other 01-31-2022 19:45-0500 Systolic blood pressure 142 mm[Hg] Juvencio Rosa Other [employer] Other 11-24-2021 09:45-0400 Body height 177.8 cm Juvencio Rosa Other [employer] Other 11-24-2021 09:45-0400 Body mass index (BMI) [Ratio] 53.23 kg/m2 Juvencio Rosa Other [employer] Other 11-24-2021 09:45-0400 Body temperature 97.6 [degF] Juvencio Rosa Other [employer] Other 11-24-2021 09:45-0400 Body weight 168.29 kg Juvencio Rosa Other [employer] Other 11-24-2021 09:45-0400 Diastolic blood pressure 102 mm[Hg] Juvencio Rosa Other [employer] Other 11-24-2021 09:45-0400 Respiratory rate 20 /min Juvencio Rosa Other [employer] Other 11-24-2021 09:45-0400 SaO2% (BldA) [Mass fraction] 99 % Juvencio Rosa Other [employer] Other 11-24-2021 09:45-0400 Systolic blood pressure 148 mm[Hg] Juvencio Rosa Other [employer] Other 10-25-2021 16:15-0400 Body height 177.8 cm Michelle Ibeth Other [employer] Other 10-25-2021 16:15-0400 Body mass index (BMI) [Ratio] 54.09 kg/m2 Michelle Ibeth Other [employer] Other 10-25-2021 16:15-0400 Body temperature 97.3 [degF] Michelle Ibeth Other [employer] Other 10-25-2021 16:15-0400 Body weight 171.01 kg Michelle Ibeth Other [employer] Other 10-25-2021 16:15-0400 Diastolic blood pressure 111 mm[Hg] Michelle Ibeth Other [employer] Other 10-25-2021 16:15-0400 SaO2% (BldA) [Mass fraction] 96 % Michelle Ibeth Other [employer] Other 10-25-2021 16:15-0400 Systolic blood pressure 182 mm[Hg] Michelle Ibeth Other [employer] Other 03-08-2021 17:30-0500 Body height 177.8 cm Juvencio Rosa Other [employer] Other 03-08-2021 17:30-0500 Body mass index (BMI) [Ratio] 57.93 kg/m2 Juvencio Rosa Other [employer] Other 03-08-2021 17:30-0500 Body temperature 98.9 [degF] Juvencio Rosa Other [employer] Other 03-08-2021 17:30-0500 Body weight 183.16 kg Juvencio Rosa Other [employer] Other 03-08-2021 17:30-0500 Diastolic blood pressure 90 mm[Hg] Juvencio Rosa Other [employer] Other 03-08-2021 17:30-0500 Respiratory rate 20 /min Juvencio Rosa Other [employer] Other 03-08-2021 17:30-0500 SaO2% (BldA) [Mass fraction] 96 % Juvencio Rosa Other [employer] Other 03-08-2021 17:30-0500 Systolic blood pressure 144 mm[Hg] Juvencio Rosa Other [employer] Other 01-23-2021 17:45-0500 Body height 177.8 cm Juvencio Rosa Other [employer] Other 01-23-2021 17:45-0500 Body mass index (BMI) [Ratio] 57.24 kg/m2 Juvencio Rosa Other [employer] Other 01-23-2021 17:45-0500 Body temperature 98.7 [degF] Juvencio Rosa Other [employer] Other 01-23-2021 17:45-0500 Body weight 180.99 kg Juvencio Rosa Other [employer] Other 01-23-2021 17:45-0500 Diastolic blood pressure 90 mm[Hg] Juvencio Rosa Other [employer] Other 01-23-2021 17:45-0500 Respiratory rate 20 /min Juvencio Rosa Other [employer] Other 01-23-2021 17:45-0500 SaO2% (BldA) [Mass fraction] 98 % Juvencio Rosa Other [facility] Other 01-23-2021 17:45-0500 Systolic blood pressure 138 mm[Hg] Juvencio Lee Other [employer] [place] [employer] Other Encounters Encounter Date Encounter Type Care Provider Facility Start: 11-13-2024 End: 11-13-2024 ambulatory Juvencio Lee DO Work Phone: [facility] Work Phone: Start: 11-13-2024 End: 11-13-2024 Patient encounter procedure Daniel Gloria MD -[facility] Cardiology Work Phone: Start: 11-11-2024 End: 11-11-2024 ambulatory Juvencio Lee DO Work Phone: [facility] Work Phone: Start: 11-11-2024 End: 11-11-2024 Patient encounter procedure Skip Gordon MD -[facility] Vascular Surg Work Phone: Start: 11-10-2024 Non-patient / Non-visit María Santana MD -[facility] Work Phone: Start: 11-09-2024 End: 11-09-2024 ambulatory Juvencio Lee DO Work Phone: [facility] Work Phone: Start: 11-09-2024 End: 11-09-2024 Patient encounter procedure José Luis Marin MD -[facility] Infect Dis Work Phone: Start: 11-04-2024 End: 11-04-2024 ambulatory Juvencio Lee DO Work Phone: [facility] Work Phone: Start: 11-04-2024 End: 11-04-2024 Patient encounter procedure Juvencio Fish DO -[employer] [facility] Work Phone: Start: 11-03-2024 End: 11-03-2024 ambulatory Juvencio Lee DO Work Phone: [facility] Work Phone: Start: 11-03-2024 End: 11-03-2024 Patient encounter procedure Norbert Porras MD -[facility] Neph [facility] Work Phone: Start: 10-29-2024 Non-patient / Non-visit Sena Izquierdo MD -[facility] Work Phone: Start: 10-28-2024 Non-patient / Non-visit [facility] Work Phone: Start: 10-27-2024 Non-patient / Non-visit María Santana MD -[facility] Work Phone: Start: 10-26-2024 Non-patient / Non-visit María Santana MD -[facility] Work Phone: Start: 10-25-2024 Non-patient / Non-visit María Santana MD -[facility] Work Phone: Start: 10-24-2024 Non-patient / Non-visit María Santana MD -[facility] Work Phone: Start: 10-23-2024 End: 10-23-2024 ambulatory Juvencio Lee DO Work Phone: [facility] Work Phone: Start: 10-23-2024 End: 10-23-2024 Departed Referred María Santana MD -[facility] Start: 10-23-2024 Non-patient / Non-visit Randi Garcia DO -[facility] Work Phone: Start: 09-24-2024 End: 09-24-2024 ambulatory Juvencio Lee DO Work Phone: [facility] Work Phone: Start: 09-24-2024 End: 09-24-2024 Patient encounter procedure Edvin Hastings MD -[employer] [facility] V[facility] [place] Work Phone: Start: 09-17-2024 End: 09-17-2024 ambulatory Juvencio M. Rosa DO Work Phone: [facility] Work Phone: Start: 09-17-2024 End: 09-17-2024 Patient encounter procedure Juvencio Rosa M DO -[employer] [facility] [facility] Family Medicine [place] Work Phone: Start: 08-10-2024 End: 08-10-2024 ambulatory Juvencio M. Rosa DO Work Phone: [facility] Work Phone: Start: 08-10-2024 End: 08-10-2024 Patient encounter procedure Juvencio Rosa DO Work Phone: [facility] [place] Work Phone: Start: 07-13-2024 End: 07-13-2024 Patient encounter procedure Juvencio Rosa DO Work Phone: [facility] [place] Work Phone: Start: 07-13-2024 End: 07-13-2024 ambulatory Juvencio M. Rosa DO Work Phone: [facility] Work Phone: Start: 07-08-2024 End: 07-08-2024 ambulatory Juvencio M. Rosa DO Work Phone: [facility] Work Phone: Start: 07-08-2024 End: 07-08-2024 Patient encounter procedure Juvencio Rosa DO Work Phone: [facility] Work Phone: Start: 06-18-2024 End: 06-18-2024 Patient encounter procedure Juvencio Rosa DO Work Phone: [facility] Vascular Surgery [place] Work Phone: Start: 06-10-2024 End: 06-10-2024 ambulatory [facility] Work Phone: Start: 06-10-2024 End: 06-10-2024 Patient encounter procedure [facility] Family [facility] [place] Work Phone: Start: 05-20-2024 End: 05-20-2024 ambulatory [facility] Work Phone: Start: 05-20-2024 End: 05-20-2024 Patient encounter procedure [facility] Work Phone: Start: 03-11-2024 End: 03-11-2024 ambulatory Juvencio M. Rosa DO Work Phone: [facility] Work Phone: Start: 03-11-2024 End: 03-11-2024 Patient encounter procedure Juvencio Rosa DO Work Phone: [facility] [place] Work Phone: Start: 02-13-2024 End: 02-13-2024 Patient encounter procedure Juvencio Rosa DO Work Phone: [facility] Vascular Surg Work Phone: Start: 02-10-2024 End: 02-10-2024 Patient encounter procedure Juvencio Rosa DO Work Phone: [facility] [place] Work Phone: Start: 02-10-2024 Non-patient / Non-visit Juvencio Rosa DO Work Phone: [facility] [place] Work Phone: Start: 02-09-2024 Non-patient / Non-visit Juvencio Rosa DO Work Phone: [facility] Work Phone: Start: 02-08-2024 Non-patient / Non-visit Juvencio Rosa DO Work Phone: [facility] Work Phone: Start: 02-07-2024 Non-patient / Non-visit Juvencio Rosa DO Work Phone: [facility] Work Phone: Start: 02-05-2024 End: 02-05-2024 Patient encounter procedure Juvencio Rosa DO Work Phone: [facility] [place] Work Phone: Start: 02-05-2024 End: 02-05-2024 ambulatory Juvencio Abe. Rosa Facility:[facility] Start: 01-16-2024 End: 01-16-2024 ambulatory [facility] Work Phone: Start: 01-16-2024 End: 01-16-2024 Patient encounter procedure [facility] Vascular Surgery [place] Work Phone: Start: 01-08-2024 End: 01-08-2024 ambulatory EDVIN HASTINGS Facility:[facility] Start: 01-08-2024 End: 01-08-2024 Patient encounter procedure EDVIN HASTINGS [facility] Start: 2024 End: 2024 ambulatory [facility] Work Phone: Start: 2024 End: 2024 Patient encounter procedure [facility] Vascular Surgery [place] Work Phone: Start: 12-25-2023 End: 12-25-2023 ambulatory JUVENCIO M ROSA Facility:[facility] Start: 12-25-2023 End: 12-25-2023 Patient encounter procedure JUVENCIO M ROSA [facility] Start: 12-25-2023 End: 12-25-2023 ambulatory [facility] Work Phone: Start: 12-25-2023 End: 12-25-2023 Patient encounter procedure [facility] Work Phone: Start: 04-12-2023 End: 04-12-2023 ambulatory Juvencio Rosa Other [employer] Other Start: 04-12-2023 Telephone encounter Juvencio Rosa [facility] Start: 02-28-2023 End: 02-28-2023 ambulatory Juvencio Rosa Other [employer] Other Start: 02-28-2023 Telephone encounter Juvencio Rosa [facility] Start: 01-08-2023 End: 01-08-2023 ambulatory Juvencio Rosa Other [employer] Other Start: 01-08-2023 Telephone encounter Juvencio Rosa [facility] Start: 12-06-2022 End: 12-06-2022 ambulatory Juvencio Rosa Other [employer] Other Start: 12-06-2022 Telephone encounter Juvencio Rosa [facility] Start: 11-20-2022 End: 11-20-2022 ambulatory Juvencio Rosa Other [employer] Other Start: 11-20-2022 Telephone encounter Juvencio Rosa [facility] Start: 11-06-2022 End: 11-06-2022 ambulatory Juvencio Rosa Other [employer] Other Start: 11-06-2022 Office outpatient visit 15 minutes Juvencio Rosa [facility] Start: 10-30-2022 End: 10-30-2022 ambulatory Juvencio Rosa Other [employer] Other Start: 10-30-2022 Telephone encounter Juvencio Rosa [facility] Start: 10-24-2022 End: 10-24-2022 Patient encounter procedure DO Juvencio Rosa Work Phone: [facility] Work Phone: Start: 10-24-2022 End: 10-24-2022 ambulatory DO Juvencio M. Rosa Work Phone: [facility] Work Phone: Start: 10-24-2022 Office outpatient visit 10 minutes Michelle [facility] Start: 10-16-2022 End: 10-16-2022 ambulatory Juvencio Rosa Other [employer] Other Start: 10-16-2022 Telephone encounter Juvencio Rosa [facility] Start: 10-10-2022 End: 10-10-2022 Patient encounter procedure JUVENCIO M ROSA [facility] Start: 09-18-2022 End: 09-18-2022 ambulatory Juvencio Rosa Other [employer] Other Start: 09-18-2022 Telephone encounter Juvencio Rosa [facility] Start: 05-07-2022 End: 05-07-2022 ambulatory Juvencio Rosa Other [employer] Other Start: 05-07-2022 Telephone encounter Juvencio Rosa [facility] Start: 05-04-2022 End: 05-04-2022 ambulatory Juvencio Rosa Other [employer] Other Start: 05-04-2022 Telephone encounter Juvencio Rosa [facility] Start: 05-02-2022 End: 05-02-2022 ambulatory Juvencio Rosa Other [employer] Other Start: 05-02-2022 Office outpatient visit 15 minutes Juvencio Rosa [facility] Start: 01-31-2022 End: 01-31-2022 ambulatory Juvencio Rosa Other [employer] Other Start: 01-31-2022 Office outpatient visit 15 minutes Juvencio Rosa [facility] Start: 12-22-2021 End: 12-22-2021 ambulatory Juvencio Rosa Other [employer] Other Start: 12-22-2021 Telephone encounter Juvencio Rosa [facility] Start: 11-24-2021 End: 11-24-2021 ambulatory Juvencio Rosa Other [employer] Other Start: 11-24-2021 Office outpatient visit 15 minutes Juvencio Rosa [facility] Start: 11-20-2021 End: 11-20-2021 ambulatory Juvencio Rosa Other [employer] Other Start: 11-20-2021 Telephone encounter Juvencio Rosa [facility] Start: 10-25-2021 End: 10-25-2021 Patient encounter procedure DO Juvencio Rosa Work Phone: [facility] Start: 10-25-2021 End: 10-25-2021 ambulatory Michelle Ibeth Other [employer] Other Start: 10-25-2021 Office outpatient visit 10 minutes Michelle Ibeth [facility] Start: 09-07-2021 End: 09-07-2021 ambulatory Juvencio Rosa Other [employer] Other Start: 09-07-2021 Telephone encounter Juvencio Rosa [facility] Start: 07-24-2021 End: 07-24-2021 ambulatory Juvencio Rosa Other [employer] Other Start: 07-24-2021 Telephone encounter Juvencio Rosa [facility] Start: 05-31-2021 End: 05-31-2021 ambulatory Juvencio Rosa Other [employer] Other Start: 05-31-2021 Telephone encounter Juvencio Rosa [facility] Start: 05-30-2021 End: 05-30-2021 Patient encounter procedure DO Juvencio Rosa Work Phone: [facility] Start: 05-24-2021 End: 05-24-2021 ambulatory Juvencio Rosa Other [employer] Other Start: 05-24-2021 Telephone encounter Juvencio Rosa [facility] Start: 05-16-2021 End: 05-16-2021 ambulatory Juvencio Rosa Other [employer] Other Start: 05-16-2021 Telephone encounter Juvencio Rosa [facility] Start: 04-14-2021 End: 04-14-2021 ambulatory Juvencio Rosa Other [employer] Other Start: 04-14-2021 Telephone encounter Juvencio Rosa [facility] Start: 03-08-2021 End: 03-08-2021 ambulatory Juvencio Rosa Other [employer] Other Start: 03-08-2021 Office outpatient visit 15 minutes Juvencio Rosa [facility] Start: 03-08-2021 Telephone encounter Juvencio Rosa [facility] Start: 02-07-2021 End: 02-08-[address] HENNING Abe OBRIENROSA Facility: Start: 01-23-2021 End: 01-23-2021 ambulatory Juvencio Rosa Other [employer] Other Start: 01-23-2021 Office outpatient visit 25 minutes Juvencio Rosa [facility] Start: 08-30-2020 ambulatory ERMELINDA THORPE Facilit y:H1 Procedures Date Procedure Procedure Detail Performing Clinician Start: 10-23-2024 Urine culture Juvencio Loulou les DO Work Phone: Start: 08-10-2024 Doppler ultrasonogra phy of kidney Juvencio Rosa DO Work Phone: Start: 02-05-2024 Duplex scan of lower limb veins Juvencio Rosa DO Work Phone: Plan of Treatment Date Care Activity Detail Author Start: 10-23-2024 Urine culture [facility] Start: 10-23-2024 Bacteria identified in Urine by Culture Urine Culture [facility] Start: 08-10-2024 Doppler ultrasonogra phy of kidney US renal doppler [facility] Start: 08-10-2024 US Unspecified body region [facility] Start: 07-13-2024 Aldosterone [Mass/vo lume] in Serum or Plasma [facility] Start: 07-13-2024 Renin [Enzymatic activity/volume] in Plasma [facility] Start: 07-13-2024 [facility] Start: 07-08-2024 [facility] Start: 02-10-2024 Patient referral [facility] Work Phone: Aldosterone [Mass/vo lume] in Serum or Plasma [facility] Creatinine [Mass/vol ume] in Urine [facility] Immunofixation for Urine Fir [facility] Metanephrines [Mass/ volume] in 24 hour Urine [facility] Metanephrines/Creati nine [Mass Ratio] in Urine [facility] Normetanephrine [Mass/volume] in 24 hour Urine [facility] Patient referral [facility] Work Phone: Renal function 2000 panel - Serum or Plasma [facility] Renin [Enzymatic activity/volume] in Plasma [facility] US Lower extremity v ein - bilateral [facility] US Lower extremity v ein - bilateral [facility] US Unspecified body region F [facility] Immunizations Immunization Date Immunization Notes Care Provider Fa lisbeth 08-14-2020 Do not use COVID-19 Pfizer 2 dose Juvencio Rosa Other [facility] 07-24-2020 COVID-19 Vaccine Pfizer - Documentation Purposes Only Juvencio Rosa Other [facility] NEGATED: Highlighted row has not occurred!01-23-2021 influenza, injectable, quadrivalent, contains preservative Patient Objection Juvencio Rosa Other [employer] [facility] Other NEGATED: Highlighted row has not occurred!12-09-2019 influenza, injectable, quadrivalent, contains preservative Patient Objection Juvencio Rosa Other [employer] [facility] Other NEGATED: Highlighted row has not occurred!01-05-2019 influenza, injectable, quadrivalent, contains preservative Patient Objection Juvencio Rosa Other [employer] [facility] Other NEGATED: Highlighted row has not occurred!01-04-2017 influenza, injectable, quadrivalent, contains preservative Patient Objection Juvencio Rosa Other [employer] Other Payers Date Payer Category Payer Self-pay [id number] 1975 Unknown [id number] [id number] [id number] 1975 Unknown [id number] 2.16.84 [id number] 1973 Unknown [id number] 2.16.8 [id number] 1973 Unknown [id number] 2.16.8 [id number] 1959 Unknown [id number] Unknown [id number] 2.16.8 [id number] Unknown [id number] 2.16.8 [id number] Unknown [id number] 2.16.8 [id number] Unknown [id number] 2.16.8 [id number] Unknown [id number] 2.16.8 [id number] Social History Date Type Detail Facility Tobacco smoking stat us AKIS Unknown if ever smoked [employer] Other Start: 1975 Sex Assigned At Male F [facility] Sex Assigned At [facility] Tobacco smoking status No Smokin g Status Entered [facility] Start: 12-25-2023 End: 11-09-2024 Tobacco smoking status NHIS Never smoked tobacco (finding) [facility] Start: 01-16-2024 End: 08-11-2024 Sex Male (finding) [facility] Clinical Notes 01-23-2021 to 09-17-2024 Note Date & Type Note Facility 09-17-2024 Evaluation note Diagnosis Onset Date Resolution Essential (primary) hypertension acute September 17, 2024 3:16pm Venous insufficiency of left leg acute September 24, 2024 3:37pm [facility] Work Phone: 1(657) 928-880507-17-2025 Evaluation note* Diagnosis Onset Date Resolution Status [...] Secondary hyperparathyroidism acute November 03, 2024 2:41pm [facility] Work Phone: 1(722) 154-689007-17-2025 Evaluation note* Diagnosis Onset Date Resolution Status [...] extremity acu te November 04, 2024 10:44am [facility] Work Phone: 1(781) 693-734107-17-2025 Evaluation note* Diagnosis Onset Date Resolution Status [...] extremity acu te November 04, 2024 10:44am Swelling of left lower extremity acu te November 09, 2024 1:57pm Venous insufficiency of left leg acu te November 09, 2024 1:57pm [facility] Work Phone: 1(655) 324-667807-17-2025 Evaluation note* Diagnosis Onset Date Resolution Status Admit Date Essential (primary) hypertension acute September 17, 2024 3:16pm Venous insufficiency of left leg acute September 24, 2024 3:37pm Anemia of renal [...] November 10:44am Swelling of left lower extremity acute November 04, 025 10:44am Swelling of left lower extremity acute November 09, 025 1:57pm Venous insufficiency of left leg acute November 09, 025 1:57pm Cellulitis acute November 10:57am Essential (primary) hypertension acute November 11, 2024 10:57am Superficial vein thrombosis acute November 11, 2024 10:57am Swelling of left lower extremity acute November 11, 2024 10:57am Venous insufficiency of left leg acute November 11, 2024 10:57am Dyspnea on exertion acute 2024 11:46am Essential (primary) hypertension acute November 13, 2024 11:46am Obstructive sleep apnea acute 2024 11:46am Elevated serum creatinine noneactive November 13, 2024 11:46am [facility] Work Phone: 1([phone]) 832-695205-07-2025 Evaluation note* Diagnosis Onset Date Resolution Status Admit Date Dyspnea on exertion acute July 082024 3:10pm Essential (primary) hypertension acute July 08, 2024 3: 10pm Obstructive sleep apnea acute M ay 2024 3:10pm Elevated serum creatinine noneactive July 08, 2024 3:10pm Essential (primary) hypertension acute September 17, 2024 3:16pm [facility] Work Phone: 1(299) 751-454004-09-2025 Evaluation note* Diagnosis Onset Date Resolution Status Admit Date Essential (primary) hypertension acute June 10, 2024 3:32pm Body mass index [BMI] 50.0-59.9, adult noneactive June 10, 2024 3:32pm Venous insufficiency of left leg acute June 18, 2024 3:36pm [facility] Work Phone: 1(435) 115-184404-09-2025 Evaluation note* Diagnosis Onset Date Resolution Status Admit Date Essential (primary) hypertension acute June 10, 2024 3:32pm Body mass index [BMI] 50.0-59.9, adult noneactive June 10, 2024 3:32pm Venous insufficiency of left leg acute June 18, 2024 3:36pm Dyspnea on exertion acute July 082024 3:10pm Essential (primary) hypertension acute July 08, 2024 3: 10pm Obstructive sleep apnea acute M ay 2024 3:10pm Elevated serum creatinine noneactive July 08, 2024 3:10pm [facility] Work Phone: 1(626) 126-489201-08-2025 Evaluation note* Diagnosis Onset Date Resolution Status Admit Date Essential (primary) hypertension acute March 11 3:24pm [facility] Work Phone: 1(991) 300-504410-23-2024 Evaluation note* Diagnosis Onset Date Resolution Status Admit Date Essential (primary) hypertension acute December 24 3:13pm Left leg swelling noneactive December 25, 2023 3:13pm Swelling of left lower extremity acute January 01 3:14pm [facility] Work Phone: [phone]) 247-604210-23-2024 Evaluation note* Diagnosis Onset Date Resolution Status Admit Date Essential (primary) hypertension acute December 24 3:13pm Left leg swelling noneactive December 25, 2023 3:13pm Swelling of left lower extremity acute January 01 3:14pm Essential (primary) hypertension acute February 09 3:07pm Obstructive sleep apnea acute D ecember 2023 3:07pm Venous insufficiency of left leg acute February 12, 024 3:29pm Essential (primary) hypertension acute March 11 3:24pm [facility] Work Phone: [phone]) 619-768712-28-2023 Evaluation note* Encounter Date Diagnosis Assessment Notes Treatment Notes Treatment Clinical Notes Feb, Decreased GFR (ICD-10 - R94.4) [employer] Other 10-05-2023 Evaluation note* Encounter Date Diagnosis Assessment Notes Treatment Notes Treatment Clinical Notes Dec, Decreased GFR (ICD-10 - R94.4) [employer] Other 09-19-2023 Evaluation note* Encounter Date Diagnosis Assessment Notes Treatment Notes Treatment Clinical Notes Nov, Essential (primary) hypertension (ICD-10 - I10) [employer] Other 09-05-2023 Evaluation note* Encounter Date Diagnosis [...] diet, and weight loss are always encouraged. [employer] Other 08-23-2023 Evaluation note* Encounter Date Diagnosis Assessment Notes Treatment Notes Treatment Clinical Notes Oct, Obstructive sleep apnea (ICD-10 - G47.33) [employer] Other 07-18-2023 Evaluation note* Encounter Date Diagnosis Assessment Notes Treatment Notes Treatment Clinical Notes Sep, Essential (primary) hypertension (ICD-10 - I10) [employer] Other 03-03-2023 Evaluation note* Encounter Date Diagnosis Assessment Notes Treatment Notes Treatment Clinical Notes May, Essential (primary) hypertension (ICD-10 - I10) [employer] Other 03-01-2023 Evaluation note* Encounter Date Diagnosis Assessment Notes Treatment Notes Treatment Clinical Notes May, Essential (primary) hypertension (ICD-10 - I10) May, Chronic fatigue (ICD-10 - R53.82) May, Other The goal of hypertension as always to have a blood pressure within acceptable limits, with patient staying compliant with medication. Increased activity, monitoring diet, and weight loss are always encouraged. [employer] Other 03-01-2023 Evaluation note* Encounter Date Diagnosis [...] diet, and weight loss are always encouraged. [employer] Other 11-30-2022 Evaluation note* Encounter Date Diagnosis [...] diet, and weight loss are always encouraged. [employer] Other 10-21-2022 Evaluation note* Encounter Date Diagnosis Assessment Notes Treatment Notes Treatment Clinical Notes Dec, Essential (primary) hypertension (ICD-10 - I10) [employer] Other 09-23-2022 Evaluation note* Encounter Date Diagnosis Assessment Notes Treatment Notes Treatment Clinical Notes Nov, Essential (primary) hypertension (ICD-10 - I10) eRX sent. Will recheck in 2-3 months. Nov, Other The goal of hypertension as always to have a blood pressure within acceptable limits, with patient staying compliant with medication. Increased activity, monitoring diet, and weight loss are always encouraged. [employer] Other 09-19-2022 Evaluation note* Encounter Date Diagnosis Assessment Notes Treatment Notes Treatment Clinical Notes Nov, Essential (primary) hypertension (ICD-10 - I10) [employer] Other 08-24-2022 Evaluation note* Encounter Date Diagnosis Assessment Notes Treatment Notes Treatment Clinical Notes Oct, Obstructive sleep apnea (ICD-10 - G47.33) [employer] Other 05-23-2022 Evaluation note* Encounter Date Diagnosis Assessment Notes Treatment Notes Treatment Clinical Notes July, Essential (primary) hypertension (ICD-10 - I10) [employer] Other 03-23-2022 Evaluation note* Encounter Date Diagnosis Assessment Notes Treatment Notes Treatment Clinical Notes May, Chronic fatigue (ICD-10 - R53.82) [employer] Other 02-11-2022 Evaluation note* Encounter Date Diagnosis Assessment Notes Treatment Notes Treatment Clinical Notes Apr, Essential (primary) hypertension (ICD-10 - I10) [employer] Other 01-05-2022 Evaluation note* Encounter Date Diagnosis [...] diet, and weight loss are always encouraged. [employer] Other 11-22-2021 Evaluation note* Encounter Date Diagnosis [...] diet, and weight loss are always encouraged. [employer] Other Evaluation + Plan note No data available for this section [facility] information available [facility] Work Phone: Evaluation noteNo [employer] Other Evaluation note* Diagnosis Onset Date Resolution Status Essential (primary) hypertension acute Left leg swelling noneactive [facility] Work Phone: Evaluation note* Diagnosis Onset Date Resolution Status Admit Date Essential (primary) hypertension acu te June 10, 2024 3:32pm [facility] Work Phone: History general Narrative - Reported* Type Description Date Medical History Hypertension [facility] Other History general Narrative - Reported* Type Description Date Medical History Hypertension Medical History Sleep Apnea [facility] Other Hospital Discharge instructions No data available for this section [facility] No data available for this section [facility] ([facility]arrative)No reason for referral [facility] Work Phone: Summary Purpose Family History [...] 2023 3:14pm GO OVER F/F DONE AT [facility] January 16, 2024 3:15pm Reason for Visit Admit Date Essential (primary) hypertension December 25, 2023 3:13pm Left leg swelling December 25, 2023 3 :13pm Swelling of left lower extremity 2024 3:14pm Chief Complaint Admit Date BP concerns December 25, 2023 3 :13pm REF BY DR. LEE FOR LEG SWELLING 2023 3:14pm GO OVER F/F DONE AT [facility] January 16, 2024 3:15pm [id number] February 05, 2024 3 :22pm Amb Documentation February 10, 2024 1 2:03pm chest congestion February 10, 2024 3 :07pm GO OVER F/F DONE AT [facility] February 13, 2024 3:29pm one month March 11, 2024 3: 24pm Reason for Visit Admit Date Essential (primary) hypertension December 25, 2023 3:13pm Left leg swelling December 25, 2023 3 :13pm Swelling of left lower extremity 2024 3:14pm Essential (primary) hypertension Decee r 2023 3:07pm Obstructive sleep apnea February 09 3:07pm [facility] Essential (primary) hypertension March [...] 242024 3:37pm Anemia of renal disease November 03 2:41pm CKD (chronic kidney disease) stage 4, [...] 2024 2:41pm Hospital follow up/ FMLA Paperwork [facility] 2024 10:44am Chief Complaint Admit Date 3 month follow up September 17, 2024 3:16 pm 3 mo VV F/U no testing September 24, 2024 3 :37pm Unknown October 23, 2024 9: 56pm Amb Documentation October 28, 2024 9: 25am CKD 4 November 03, 2024 2:41pm Hospital follow up/ FMLA Paperwork Neelima [facility] 2024 10:44am Ref: Dr. Sena Izquierdo - Cellulitis L. Low er Leg November 09, 2024 1:57pm Reason for Visit Admit Date Essential (primary) hypertension September 172024 3:16pm Venous insufficiency of left leg September 242024 3:37pm Anemia of renal disease November 03, 025 2:41pm CKD (chronic kidney disease) stage [...] 2024 10:44am Swelling of left lower extremity [facility] 2024 10:44am Chief Complaint Admit Date 3 month follow up September 17, 2024 3:16 pm 3 mo VV F/U no testing September 24, 2024 3 :37pm Unknown October 23, 2024 9: 56pm Amb Documentation October 28, 2024 9: 25am CKD 4 November 03, 2024 2:41pm Hospital follow up/ FMLA Paperwork [facility] 2024 10:44am Ref: Dr. Sena Izquierdo - Cellulitis LBaljeet Low er Leg November 09, 2024 1:57pm Superficial clot, [facility] on 0 10/27November 11, 2024 10:57am Reason for Visit Admit Date Essential (primary) hypertension September 172024 3:16pm Venous insufficiency of left leg September 242024 3:37pm Anemia of renal disease November 03 025 2:41pm CKD (chronic kidney disease) stage [...] 2024 10:44am Swelling of left lower extremity [facility] 2024 10:44am Swelling of left lower extremity [facility] 2024 1:57pm Venous insufficiency of left leg [facility] 2024 1:57pm Chief Complaint Admit Date 3 month follow up September 17, 2024 3:16 pm 3 mo VV F/U no testing September 24, 2024 3 :37pm Unknown October 23, 2024 9: 56pm Amb Documentation October 28, 2024 9: 25am CKD 4 November 03, 2024 2:41pm Hospital follow up/ FMLA Paperwork [facility] 2024 10:44am Ref: Dr. Shetty Diab - Cellulitis L. Low er Leg November 09, 2024 1:57pm Superficial clot, [facility] on 0 10/27November 11, 2024 10:57am 3 month f/u November 13, 2024 11:46am Reason for Visit Admit Date Essential (primary) hypertension September 172024 3:16pm Venous insufficiency of left leg September 242024 3:37pm Anemia of renal disease November 03 025 2:41pm CKD (chronic kidney disease) stage [...] 2024 10:44am Swelling of left lower extremity [facility] 2024 10:44am Swelling of left lower extremity [facility] 2024 1:57pm Venous insufficiency of left leg [facility] 2024 1:57pm Cellulitis November 11, 2024 10:57am Essential (primary) hypertension [facility] 2024 10:57am Superficial vein thrombosis November 112024 10:57am Swelling of left lower extremity [facility] 2024 10:57am Venous insufficiency of left leg [facility] 2024 10:57am Dyspnea on exertion November 13, 2024 11:46am Essential (primary) hypertension [facility] 2024 11:46am Obstructive sleep apnea November 13, 2024 11:46am Elevated serum creatinine November 11:46am Additional Source Comments (unrecognized sect ion and content) No Status Records FoundNo Status Records FoundNo Status Records Found INFORMATION SOURCE (unrecogn ized section and content) DATE CREATED AUTHOR 02/12/2021 [facility] DATE CREATED AUTHOR AUTHOR'S ORGANIZ ATION 01/18/2024 [facility] DATE CREATED AUTHOR AUTHOR'S ORGANIZ ATION 10/27/2024 [facility] Care Teams (unrecognized sec tion and content) Team Status: Inactive Member Role Status Dates Juvencio Lee , DO Primary Care Provider, Referring Provider Active Eber Krause MD Attending Provider Active Team Status: Active Member Role Status Dates Juvencio Lee , DO Primary Care Provider Active Team Status: Inactive Member Role Status Dates Juvencio Lee DO Primary Care Provider Active Michelle Cristina APRN [facility] Attending Provider Active Team Status: Inactive Member Role Status Dates Juvencio Lee DO Primary Care Provid er, Attending Provider Active Start: December 25, 2023 End: December 25, 2023 Team Status: Inactive Member Role Status Dates Juvencio Lee , DO Primary Care Provider Active Start: 2024 [...] Tyra Eugene Attending Provider Active Start: 2024 Team Status: Active Member Role Status [...] November 09, 2024 End: November 09, 2024 Team Status: Active Member Role Status Dates Juvencio Lee DO Primary Care Provider Active Start: November 10, 2024 María Santana MD Attending Provider Active Sta rt: November 10, 2024 Team Status: Inactive Member Role Status Dates Juvencio Lee DO Primary Care Provider Active Start: November 11, 2024 End: November 11, 2024 Skip Gomez MD Attending Provider Active Star t: November 11, 2024 End: November 11, 2024 Team Status: Inactive Member Role Status Dates Juvencio AbeBaljeet Lee , Primary Care Provider Active Start: November 13, 2024 End: November 13, 2024 Daniel Gloria MD Attending Provider Active Start: November End: November 13, 2024 Goals (unrecognized section and content) Goals [...] BE BASED ON THE PRIMARY CLINICAL RECORDS. [facility] [employer] [facility] provides no warranty or guarantee of the accuracy or completeness of information in this document.
[2024-11-17 13:45] LABS: Hematocrit 31.8 % (42.0-54.0); Hemoglobin 10.1 g/dL (14.0-18.0); Mean Corpuscular HGB Conc 31.8 g/dL (29.9-35.2); Mean Corpuscular Hemoglobin 27.9 pg (25.9-34.0); Mean Corpuscular Volume 87.8 fL (80.0-94.0); Platelet Count 418 10^3/uL (150-450); Red Blood Count 3.62 10^6/uL (4.70-6.10); White Blood Count 7.1 10^3/uL (4.0-11.0)
[2024-11-17 13:56] LABS: Glucose Urine UA NEGATIVE (NEGATIVE)
[2024-11-17 14:11] LABS: Cast Seen? SEEN #/LPF (NONE SEEN); Crystals Seen? None Seen #/HPF (None Seen)
[2024-11-17 14:30] LABS: Ferritin 224.0 ng/mL (26.0-388.0)
[2024-11-17 14:38] LABS: Iron 16.0 ug/dL (65.0-175.0); Percent Iron Saturation 8.7 %; Total Iron Binding Capacity 184.0 ug/dL (250.0-450.0)
[2024-11-19 15:09] LABS: Albumin 2.7 g/dL (2.9-4.4); Alpha-1-Globulin 0.4 g/dL (0.0-0.4); Alpha-2-Globulin 1.1 g/dL (0.4-1.0); Free Kappa Lt Chains,S 165.8 mg/L (3.3-19.4); Free Lambda Lt Chains,S 141.4 mg/L (5.7-26.3); Gamma Globulin 1.7 g/dL (0.4-1.8); Immunofixation Result, Serum Comment: (.); Immunoglobulin A, Qn, Serum 443 mg/dL (90-386); Kappa/Lambda Ratio,S 1.17 (0.26-1.65)
== END 2024-11-17 12:48 | disposition home or self-care (01) ==
PROVIDERS: PCP Family Medicine; Visit Provider Internal Medicine
DX: N25.81 Secondary hyperparathyroidism of renal origin (principal); I12.9 Hypertensive chronic kidney disease with stage 1 through stage 4 chronic kidney disease, or unspecified chronic kidney disease; R80.9 Proteinuria, unspecified; D63.1 Anemia in chronic kidney disease; N18.4 Chronic kidney disease, stage 4 (severe)
CPT/HCPCS: 36415; 80069; 81001; 82306; 82570; 82728; 82784; 83521; 83540; 83550; 83735; 83970; 84155; 84156; 84165; 84166; 84550; 85027; 86334; 86335

== ENCOUNTER 2025-01-14 15:07 | Outpatient (OUT) | payer BC, SELFPAY ==
--- OUTSIDE RECORDS SUMMARY | 2025-01-13 11:26 | XMS_ITS | Continuity of Care Document ---
Author Organization [facility] Address [address] [place] [address] Phone Care Team Providers Care Motorcycle Subassembler Name Role Phone Juvencio Lee DO Primary Care Provider [phone] Randi Garcia DO Attending Provider [phone] María Santana MD Attending Provider Tyra Eugene Attending Provider Unavailable Sena Izquierdo MD Attending Provider [phone] Verena Porras Attending Provider Juvencio Lee DO Attending Provider [phone] José Luis Marin MD Attending Provider Sena Izquierdo MD Referring Provider Skip Gomez MD Attending Provider [phone] Daniel Gloria MD Attending Provider Care Teams Patient Care Team Team Status: Active Member Role/Relationship Status Dates Juvencio Lee DO Primary Care Provider Active Visit Care Team Team Status: Active Member Role/Relationship Status Dates Juvencio Lee DO Primary Care Provider Active Start: October 23, 2024 Randi Garcia DOAttkevan ProviderActiveStart: October 23, 2024 Visit Care Team Team Status: Inactive Member Role/Relationship Status Dates Juvencio Lee DO Primary Care Provider Active Start: October 23, 2024 End: October 23, 2024RaIrina Borja ProviderActiveStart: October 23, 2024 End: October 23, 2024 Visit Care Team Team Status: Active Member Role/Relationship Status Dates Juvencio Lee DO Primary Care Provider Active Start: October 24, 2024 Evangelistneris Marianodoris MDAttending ProviderActiveStart: October 24, 2024 Visit Care Team Team Status: Active Member Role/Relationship Status Dates Juvencio Lee DO Primary Care Provider Active Start: October 25, 2024 Evangelistneris Marianodoris , MDAttending ProviderActiveStart: October 25, 2024 Visit Care Team Team Status: Active Member Role/Relationship Status Dates Juvencio Lee DO Primary Care Provider Active Start: October 26, 2024 Evangelistneris Santana , MDAttending ProviderActiveStart: October 26, 2024 Visit Care Team Team Status: Active Member Role/Relationship Status Dates Juvencio Lee DO Primary Care Provider Active Start: October 27, 2024 Evangelistneris Marianodoris , MDAttending ProviderActiveStart: October 27, 2024 Visit Care Team Team Status: Active Member Role/Relationship Status Dates Juvencio Lee DO Primary Care Provider Active Start: October 28, 2024 Tyra Mar ProviderActiveStart: October 28, 2024 Visit Care Team Team Status: Active Member Role/Relationship Status Dates Juvencio Lee DO Primary Care Provider Active Start: October 29, 2024 Sena Izquierdo MDAttending ProviderActiveStart: October 29, 2024 Visit Care Team Team Status: Inactive Member Role/Relationship Status Dates Juvencio Lee DO Primary Care Provider Active Start: November 03, 2024 End: November 03car Porras MDAttending ProviderActiveStart: November 03, 2024 End: November 03, 2024 Visit Care Team Team Status: Inactive Member Role/Relationship Status Dates Juvencio Lee DO Primary Care Provider Active Start: November 04, 2024 End: November 04, 2024Juvencio Lee DOAttkevan ProviderActiveStart: November 04, 2024 End: November 04, 2024 Visit Care Team Team Status: Inactive Member Role/Relationship Status Dates Juvencio Lee DO Primary Care Provider Active Start: November 09, 2024 End: November 09, 2024José Luis Marin MDAttending ProviderActiveStart: November 09, 2024 End: November 09, 2024Sena Izquierdo , MDReferring ProviderActiveStart: November 09, 2024 End: November 09, 2024 Visit Care Team Team Status: Active Member Role/Relationship Status Dates Juvencio Lee DO Primary Care Provider Active Start: November 10, 2024 María Santana , MDAttending ProviderActiveStart: November 10, 2024 Visit Care Team Team Status: Inactive Member Role/Relationship Status Dates Juvencio Lee DO Primary Care Provider Active Start: November 11, 2024 End: November 11kaylan Gomez MDAttending ProviderActiveStart: November 11, 2024 End: November 11, 2024 Visit Care Team Team Status: Inactive Member Role/Relationship Status Dates Juvencio Lee DO Primary Care Provider Active Start: November 13, 2024 End: November 13, 2024Georrosa maria Gloria MDAttending ProviderActive Start: November 13, 2024 End: November 13, 2024 Visit Care Team Team Status: Active Member Role/Relationship Status Dates Juvencio Lee DO Primary Care Provider Active Start: November 17, 2024 Norbert Porras MDAttending ProviderActiveStart: November 17, 2024 Visit Care Team Team Status: Inactive Member Role/Relationship Status Dates Juvencio Lee DO Primary Care Provider Active Start: November 23, 2024 End: November 23, 2024Micpaige Marin MDAttending ProviderActiveStart: November 23, 2024 End: November 23, 2024 Visit Care Team Team Status: Active Member Role/Relationship Status Dates Juvencio Lee DO Primary Care Provider Active Start: November 24, 2024 María Santana MDAttending ProviderActiveStart: November 24, 2024 Visit Care Team Team Status: Inactive Member Role/Relationship Status Dates Juvencio Lee DO Primary Care Provider Active Start: December 21, 2024 End: December 21, 2024Juvencio Lee DOAttending ProviderActiveStart: December 21, 2024 End: December 21, 2024 Patient Care Team Team Status: Inactive Member Role/Relationship Status Dates Juvencio Lee DO Primary Care Provider Active Start: January 13, 2025 End: January 13car ChiquitaEMANI morelttending ProviderActiveStart: January 13, 2025 End: January 13, 2025 Chief Complaint and Reason for Visit Chief Complaint Admit Date Unknown October 23, 2024 9: 56pm Amb Documentation October 28, 2024 9: 25am CKD 4 November 03, 2024 2:41pm [facility] 10[facility] Ref: Dr. Sena Izquierdo - Cellulitis L. Low er Leg November 09, 2024 1:57pm Superficial clot, [facility] on 0 10/27November 11, 2024 10:57am 3 month f/u November 13, 2024 11:46am 2 week f/u November 23, 2024 2:55pm 3 month follow up December 21, 2024 3 :09pm renal 6 week f/u January 13, 2025 3:54pm Reason for Visit Admit Date Anemia of renal disease November 03 2:41pm [...] 2024 10:44am Swelling of left lower extremity [facility] 2024 10:44am Swelling of left lower extremity [facility] 2024 1:57pm Venous insufficiency of left leg [facility] 2024 1:57pm Cellulitis November 11, 2024 10:57am Essential (primary) hypertension [facility] 2024 10:57am Superficial vein thrombosis November 112024 10:57am Swelling of left lower extremity [facility] 2024 10:57am Venous insufficiency of left leg [facility] 2024 10:57am Dyspnea on exertion November 13, 2024 11:46am Essential (primary) hypertension [facility] 2024 11:46am Obstructive sleep apnea November 13, 2024 11:46am Elevated serum creatinine November 11:46am Swelling of left lower [place] [facility] [place], 2025 2:55pm Venous insufficiency of left leg [facility] 2024 2:55pm CKD (chronic kidney disease) stage 4, GF R 15-29 ml/min December 21, 2024 3:09pm Essential (primary) hypertension December 21, 2024 3:09pm Obstructive sleep apnea December 21 3:09pm Lymphedema December 21, 2024 3 :09pm Anemia of renal disease January 13 3:54pm CKD (chronic kidney disease) stage 4, GF R 15-29 ml/min January 13, 2025 3:54pm Hypertensive chronic kidney disease with stage 1 through stage 4 chronic ki January 13, 2025 3:54pm Proteinuria January 13, 2025 3:54pm Secondary hyperparathyroidism January 022024 3:54pm Allergies, Adverse Reactions, Alerts Allergen Type Severity Reaction Last Updated Verified Status ertapenem Allergy Unknown Hives January 13, 2025 4:02pm Yes Active Social History Smoking Status Status Start Date End Date Date of Observa tion Never smoked tobacco (finding) December 21, 2024 3:20pm Observation Status Observation Response Date of Response Legal Sex [facility] ([facility]) [facility] Family History Relationship Condition Age at Onset Recorded Date/T lucas brother Diabetes mellitus Unknown DeceasedUnknownfatherDiabetes mellitusUnknownHypertensionUnknownmotherDeceased UnknownHypertensionUnknownDiabetes mellitusUnknownMalignant neoplasm of pancreas Unknown Problems Active Problems Problem Diagnosis/Recorded Date Onset Date Stat Obstructive sleep apnea May 07, 2023 4:41pm Unknown Active Swelling of left lower extremity 2024 2: 47pm Unknown Active Secondary hyperparathyroidism November 03, 2024 10:3 8am Unknown Active Dyspnea on exertion July 08, 2024 3:06pm Unknown Active CKD (chronic kidney disease) stage 4, GFR 15-29 ml/min November 03, 2024 10:37am Unknown Active Cellulitis November 09, 2024 1:02pm Unknown A ctive Hypertensive chronic kidney disease with stage 1 through stage 4 chronic kidney disease, or unspecified chronic kidney disease November 03, 2024 10:37am Unknown Active Venous insufficiency of left leg February 13, 2024 3 :58pm Unknown Active Proteinuria November 03, 2024 10:37am Unknown Active Essential (primary) hypertension May 07, 2023 4:41p m Unknown Active Anemia of renal disease November 03, 2024 10:37am Un known Active Superficial vein thrombosis November 11, 2024 10:46 am Unknown Active Medications Medication Status Dose Units Route Directions Qty Days Refills S tart Date Stop Date End Date Reason(s) Instructions Adherence Lisinopril 40 mg tablet Discontinued 0 .ROUTE.MLNBPHP320Zwjcx 2023 10:43amOctober 2023 2:27pmTAKE 1 TABLET BY MOUTH EVERY DAY FOR 30 DAYSHydrochlorothiazide 25 mg tsgqvnMdpjtacjeywm94SIBN Yzwze27547Ggipeoh 2024 12:39pmApril 2024 6:57amMetoprolol Succinate 200 mg tablet extended release 24 hrDiscontinued0.ROUTE.WOICQEO919Ljfgjdy 2024 2:24pmApril 2024 2:38pmTAKE 1 TABLET BY MOUTH DAILYHydrochlorothiazide 25 mg tabletDiscontinued0.ROUTE.IWEZWKC553Yafhm 2024 6:57amJuly 2024 2:48pmTAKE 1 TABLET BY MOUTH DAILYHydrochlorothiazide 25 mg tabletDiscontinued0 .ROUTE.KVJJLFQ758Ipuieg 2024 12:53pmSeptember 2024 1:50pmTAKE 1 TABLET BY MOUTH DAILYCarvedilol (Coreg) 25 mg jbdvixZcezit09DQFSItbiu bryje85701 December 23, 2024 11:44ammust administer with a meal/foodComplies with drug therapyHydralazine 50 mg yrhkrdQvlrbr04SGHPHrany rvzoe27378Wzfqmkk 22nd, 2025 11:44amComplies with drug therapyRivaroxaban (Xarelto) 10 mg cgsugqIvbaax00KUVW Rricm61014Odulvyl 22nd, 2025 11:44amComplies with drug therapyAmlodipine 10 mg veeteuZfqyvl64DSYBDdhdxGrlloklb 9th, 2024 12:00amComplies with drug therapy Clonidine Hcl 0.1 mg tabletDiscontinued0.2MGPOThree times dailyDece2023 12:00amMay 2024 2:16pmClonidine Hcl 0.1 mg tabletDiscontinued0.1MGPO Three times dailyJuly 08, 2024 2:16pmSeptember 2024 1:50pmCeftriaxone 1 gram recon nibySyxatebcbzwx9FFPXCjqfsDafsonpsl 2024 11:00pmSeptember 2024 1:01pmHydralazine 50 mg azcnblCrgxuoclodhr20FUFBCqaai dailySept2024 11:00pmOctober 2024 11:45amRivaroxaban (Xarelto) 10 mg tablet Toikeikhqjjt54IWPLUlsdvPcelxxhdm 1st, 2025 11:00pmSeptember 2024 9:53amfor 35 daysTorsemide 40 mg wkvushIzvjceovkwrt96PJERPiymh morningSept2024 11:00pmSept2024 9:53amRivaroxaban (Xarelto) 10 mg tabletDiscontinued 10MGPODailySept2024 9:52amOctober 2024 11:45amLisinopril 40 mg rdukgeLzphrmdonilw5ZSRWOFenxoApvpj 2023 12:00amMarch 2023 4:45pm FreeTextSi tablet Orally Once a day; Note: Source Status: Taking; Refills: 5; Qty: 30 Tablet; Provider: Rosa Henning MAmlodipine 10 mg tabletDiscontinued 0.5TABPODailyPremier Health 2023 12:00amMarch 2023 4:45pmFreeTextSi/2 tab Orally Once a day; Note: Source Status: Taking; Refills: 5; Provider: Rosa sauer MHydrochlorothiazide 25 mg mehsucGicrppanhuvb2NVMPNWtfksMxoso 2023 12:00amMarch 2023 4:45pmFreeTextSi tablet in the morning Orally Once a day; Note: Source Status: Taking; Refills: 5; Provider: Rosa Fish Acetaminophen (Tylenol Extra Strength) 500 mg hlxttzHcsfnnnhckwd2TILIBXuftm 6 hoursMar 2023 12:00amSept2024 1:51pmFreeTextSi tablet as needed Orally every 6 hrs; Note: Source Status: Taking; Provider: Rosa Henning ( )Metoprolol Succinate 50 mg tablet extended release 24 hr Dbhisnjssbma5XNPHUVhkczSbydv 2023 12:00amMarch 2023 4:45pmFreeTextSi tablet Orally Once a day; Note: Source Status: Refill; Refills: 1; Qty: 90 Tablet; Provider: Rosa Henning MCPAPActive0.Route.MEDSUPPLYPremier Health 2023 12:00amMedication Name: CPAP Machine; Note: Source Status: Taking; Provider: Rosa Henning ( )Hydrochlorothiazide 25 mg btjmzeVlupbooidyze00GH PODailyMarch 2023 4:44pmJanuary 2024 12:39pmLisinopril 40 mg tablet Imqrfvsvyfxe15ANGYVfsdgXgctt 2023 4:44pmApril 2023 10:43amMetoprolol Succinate 50 mg tablet extended release 24 qiJruvvfhpayvu89NPNMOeixmApxyj 2023 4:44pmMarch 2023 4:49pmAmlodipine 10 mg ehhsyeNcpixiphtzoe0CEGIOgytc May 07, 2023 4:44pmOctober 2023 2:17pmMetoprolol Succinate 100 mg tablet extended release 24 llIdekkrpslymt201RTJFHfkbd97687Pqdmk 2023 12:00amOctober 2023 2:33pmAcetaminophen (Tylenol Extra Strength) 500 mg whrnznQldsmr138KTYPWwksh 6 hours as neededSept2024 1:51pmFreeTextSi tablet as needed Orally every 6 hrs; Note: Source Status: Taking; Provider: Rosa Henning ( )Complies with drug therapyLisinopril 40 mg tablet Xydkwjazyokm51UAJWCksqzZjpgmiq 2023 2:27pmDecember 2023 3:13pm Metoprolol Succinate 200 mg tablet extended release 24 xyGpmjcnqnlrow943ZUDF Hgxop30287Znnuxwh 2023 2:33pmJanuary 2024 2:24pmClonidine Hcl 0.2 mg tabletDiscontinued0.2MGPOThree times kcagz020559Rgjvgli 2024 12:00amApril 2024 2:37pmCarvedilol (Coreg) 25 mg doprbkLsxfbizbjcjj87HUOMOjckh ejaan0384 3May 2024 11:00pmOctober 2024 11:45ammust administer with a meal/food Metoprolol Succinate 200 mg tablet extended release 24 yhJluticncopix299VUHY DailyApril 2024 2:37pmMay 2024 2:48pmHydrochlorothiazide 25 mg tablet Jxsntfswlaku33XXQGIepucCkwy 2024 2:48pmAugust 2024 12:53pmTorsemide 20 mg jralljPfjijtzkqdbt02LJWBXjtgeCyfcxrozs 2024 11:00pmOctober 2024 2:40pmTorsemide 20 mg xvfakpOjnvoc83JKXFUvcno19744Uzbfgga 2024 2:38pm Complies with drug therapy Immunizations Immunization Event Date Not Given Reason Dose Number [employer] Lot Number Reason(s) Given Vaccine Information Statement (VIS) Detail Administration Location COVID-19 mRNA, Comirnaty (Tapingo) July 24, 2020 COVID-19 mRNA, Comirnaty (Tapingo)August 14, 2020Tetanus, Diphtheria, Pertussis (Tdap)August 25, [id number] Procedures Procedure Date Performed Status Urine Culture October 23, 2024 completed Relevant Diagnostic Tests and/or Laboratory Data Laboratory Results Test Collection Date/Time Result Date/Time Result Interpretation Reference Range Result Comment Performing Site Troponin I High Sensitivity October 22, 2024 11:40pm October 22, 2024 11:40pm 44.8 pg/mL 4.0-76.1CUT-OFF POINTS HAVE BEEN ESTABLISHED BASED ON THE FOURTHUNIVERSAL DEFINITION OF MYOCARDIAL INFARCTION. THE UPPERREFERENCE LIMIT (URL) OF TROPONIN, DEFINED THE 99THPERCENTILE OF cTnI DISTRIBUTION IN A REFERENCE POPULATION,HAS BEEN CONFIRMED THE DECISION THRESHOLD FOR MIDIAGNOSIS.99TH PERCENTILE = 76.2 PG/MLNOTE: HIGH-SENSITIVITY TROPONIN ASSAY IS NOT INTENDED TO BEUSED IN ISOLATION BUT SHOULD BE INTERPRETED IN CONJUNCTIONWITH OTHER DIAGNOSTIC AND CLINICAL INFORMATION.Anion GapAugust 2024 11:40pmAugust 2024 11:40pm 13.1Lactic Acid LevelAugust 2024 11:40pmAugust 2024 11:40pm1.1 mmol/L0.4-2.0D-Dimer Quantitative (PE/DVT)October 22, 2024 11:40pmAugust 2024 11:40pm1.39 mg/L FEUAbove upper panic limits<=0.59RESULTS CALLED TO WALTER Martinez (Baker), RN @BY Jad Keane MLT at 0119Increases in D-Dimer con centration observed withthromboembolic events can be variable due to localization,size, and age of the thrombus. Therefore, a thromboembolicevent cannot be diagnosed with certainty on the basis of thereference range. D-Dimers may also be elevated for a varietyof disorders including advanced age, pre gnancy, coronarydisease, cancer, liver disease, infection, inflammation,hematoma, DIC, trauma, post-surgery, diabetes, thrombolyticor anticoagulant therapy, stress, and generalizedhospitalization.Activated Partial Thromboplast TimeAugust 2024 11:40pmAugus2024 11:40pm35.6 sec 22.3-36.2Prothromb Time International RatioAu2024 11:40pmAugus2024 11:40pm1.07DESIRED INR:2.0-3.0 CONDITIONS NOT LISTED BELOW2.5-3.5 FOR PROSTHETIC HEART VALVE REPLACEMENT2.5-3.5 RECURRENT THROMBOSISBasophils # (Auto) October 22, 2024 11:40pmAugust 2024 11:40pm0.1 10 3/uL0.0-0.1Urine Culture ReflexedAugust 2024 8:56pmYES-FRMCAnion GapAugust 2024 6:06amAugust 2024 6:06am14.7Basophils # (Auto)October 24, 2024 6:06am October 24, 2024 6:06am0.1 10 3/uL0.0-0.1Anion GapAugust 2024 5:22am October 25, 2024 5:22am16.0C-Reactive Protein, QuantitativeAugust 2024 5:22amAugust 2024 5:22am30.92 mg/dLAbove high normal<=0.50HematocritAugu2024 5:22amAugust 2024 5:22am31.3 %Below low fwcpuv45.0-54.0Anion GapAugust 2024 4:49amAugust 2024 4:49am15.9Anion GapAugust 2024 4:49amAugust 2024 4:49am15.5Anion GapAugust 2024 1:57pmAugust 2024 1:57pm11.9Basophils # (Auto)October 29, 2024 1:57pmAugust 2024 1:57pm0.1 10 3/uL0.0-0.1C-Reactive Protein, QuantitativeSept2024 10:39amSeptember 2024 10:39am16.04 mg/dLAbove high normal<=0.50Anion Gap November 10, 2024 10:39amSeptember 2024 10:39am15.1Basophils # (Auto) November 10, 2024 10:39amSeptember 2024 10:39am0.2 10 3/uLAbove high normal0.0-0.1Urine ImmunofixationSept2024 11:54amSept2024 11:54amComment.No monoclonality detected.Performed at: [address] [id number] Director: Ivan Marrufo PhD, Phone: [phone] Other CastsSept2024 11:54amSEEN #/LPFAbnormal (applies to non-numeric results)NONE SEENUrine Random CreatinineSept2024 11:54amSeptember 2024 11:22if603.69 mg/dL20.00-300.00Immunoglobulin G November 17, 2024 12:08pmSept2024 12:28oz9296 mg/dLAbnormal (applies to non-numeric results)603-1613Parathyroid Hormone (Intact)November 17, 2024 12:08pmSept2024 12:61eq927 pg/mLAbnormal (applies to non- numeric results)15-65Performed at: [facility] [address] [id number] Director: Ivan Marrufo PhD, Phone: [phone] SaturationSept2024 12:08pmSept2024 12:08pm8.7 %25- Hydroxy Vitamin D TotalSept2024 12:08pmSept2024 12:08pm 10.8 ng/mL<20 ng/mL Vit D nngpqmuob06-<30 ng/mL Vit D vmyrxvsbzyja35-863 ng/mL Vit D sufficient>100 ng/mL Potential ToxicityFerritinSept2024 12:08pmSept2024 12:84ov079.0 ng/mL26.0-388.0HematocritSept2024 12:08pmSept2024 12:08pm31.8 %Below low nebknd72.0-54.0 Magnesium LevelSept2024 12:08pmSept2024 12:08pm1.8 mg/dL 1.8-2.4Uric AcidSept2024 12:08pmSept2024 12:08pm9.2 mg/dLAbove high normal3.5-7.2Anion GapSept2024 12:08pmSept2024 12:08pm15.5C-Reactive Protein, QuantitativeSept2024 2:15pmSept2024 2:15pm6.64 mg/dLAbove high normal<=0.50Anion Gap November 24, 2024 2:15pmSept2024 2:15pm13.2Basophils # (Auto) November 24, 2024 2:15pmSept2024 2:15pm0.1 10 3/uL0.0-0.1 Albumin/Globulin RatioAugust 2024 11:40pmAugust 2024 11:40pm0.4 Prothrombin TimeAugust 2024 11:40pmAugust 2024 11:40pm11.3 sec 9.0-11.6Basophils (%) (Auto)October 22, 2024 11:40pmAugust 2024 11:40pm 0.2 %0.2-2.0Urine Other CastsAugu2024 8:56pmNONE SEEN #/LPFNONE SEEN BUN/Creatinine RatioAugust 2024 6:06amAugust 2024 6:06am13.3 Basophils (%) (Auto)October 24, 2024 6:06amAugust 2024 6:06am0.4 %0.2-2.0 BUN/Creatinine RatioAugust 2024 5:22amAugust 2024 5:22am13.2 HemoglobinAugust 2024 5:22amAugust 2024 5:22am10.4 g/dLBelow low afyfgs32.0-18.0BUN/Creatinine RatioAugust 2024 4:49amAugust 2024 4:49am13.2BUN/Creatinine RatioAugust 2024 4:49amAugust 2024 4:49am 13.6Albumin/Globulin RatioAugust 2024 1:57pmAugust 2024 1:57pm0.3 Basophils (%) (Auto)October 29, 2024 1:57pmAugust 2024 1:57pm0.5 %0.2-2.0 BUN/Creatinine RatioSeptember 2024 10:39amSeptember 2024 10:39am11.6 Basophils (%) (Auto)November 10, 2024 10:39amSeptember 2024 10:39am1.5 % 0.2-2.0Urine Other CrystalsSeptember 2024 11:54amNone Seen #/HPFNone Seen Urine Protein/Creatinine RatioSeptember 2024 11:54amSeptember , 2024 11:54am1.34Protein Electrophoresis M-SpikeSeptember 2024 12:08pmSeptember , 2024 12:08pmNot Observed g/dLNot ObservedIron LevelSeptember 2024 12:08pmSeptember , 2024 12:08pm16.0 ug/dLBelow low vzscoj76.0-175.0 HemoglobinSeptember 2024 12:08pmSeptember , 2024 12:08pm10.1 g/dLBelow low kasdie45.0-18.0AlbuminSeptember 2024 12:08pmSeptember , 2024 12:08pm2.5 g/dLBelow low normal3.4-5.0BUN/Creatinine RatioSeptember 2024 2:15pmSeptember 2024 2:15pm14.9Basophils (%) (Auto)November 24, 2024 2:15pmSeptember 2024 2:15pm0.8 %0.2-2.0AlbuminAugust 2024 11:40pm October 22, 2024 11:40pm2.4 g/dLBelow low normal3.4-5.0Eosinophils # (Auto) October 22, 2024 11:40pmAugust 2024 11:40pm0.2 10 3/uL0.0-0.7Urine Other CrystalsAugust 2024 8:56pmSeen #/HPFAbnormal (applies to non-numeric results)None SeenBlood Urea NitrogenAugust 2024 6:06amAugust 2024 6:06am45.0 mg/dLAbove high normal7.0-18.0Eosinophils # (Auto)October 24, 2024 6:06amAugust 2024 6:06am0.1 10 3/uL0.0-0.7Blood Urea NitrogenAugust 2024 5:22amAugust 2024 5:22am42.0 mg/dLAbove high normal7.0-18.0Mean Corpuscular HemoglobinAugust 2024 5:22amAugust 2024 5:22am28.7 pg 25.9-34.0Blood Urea NitrogenAugust 2024 4:49amAugust 2024 4:49am40.0 mg/dLAbove high normal7.0-18.0Blood Urea NitrogenAugust 2024 4:49amAugust 2024 4:49am39.0 mg/dLAbove high normal7.0-18.0AlbuminAugust 2024 1:57pmAugust 2024 1:57pm1.8 g/dLBelow low normal3.4-5.0Eosinophils # (Auto)October 29, 2024 1:57pmAugust 2024 1:57pm0.7 10 3/uL0.0-0.7Blood Urea NitrogenSeptember 2024 10:39amSeptember 2024 10:39am48.0 mg/dL Above high normal7.0-18.0Eosinophils # (Auto)November 10, 2024 10:39am November 10, 2024 10:39am0.2 10 3/uL0.0-0.7Urine BacteriaSeptember 2024 11:54amTRACE #/HPFAbnormal (applies to non-numeric results)NONE SEENUrine Random Total ProteinSept2024 11:54amSeptember 2024 11:09ks317.8 mg/dL Above high normal<=11.9Globulin (PEP)November 17, 2024 12:08pmSeptember 2024 12:08pm4.2 g/dLAbnormal (applies to non-numeric results)2.2-3.9Total Iron Binding CapacitySeptember 2024 12:08pmSeptember 2024 12:43qo454.0 ug/dLBelow low slzkuq431.0-450.0Mean Corpuscular HemoglobinSeptember 2024 12:08pmSeptember 2024 12:08pm27.9 pg25.9-34.0BUN/Creatinine RatioSept2024 12:08pmSeptember 2024 12:08pm9.8Blood Urea NitrogenSeptember 2024 2:15pmSeptember 2024 2:15pm49.0 mg/dLAbove high normal7.0-18.0 Eosinophils # (Auto)November 24, 2024 2:15pmSeptember 2024 2:15pm0.2 10 3/uL0.0-0.7Alkaline PhosphataseAugust 2024 11:40pmAugust 2024 11:40pm89 U/C53-455Imehhdpnnqk (%) (Auto)October 22, 2024 11:40pmAugust 2024 11:40pm0.8 %Below low normal0.9-7.0Urine Amorphous SedimentAugust 2024 8:56pmFEWCalcium LevelAugust 2024 6:06amAugust 2024 6:06am8.7 mg/dL8.5-10.1Eosinophils (%) (Auto)October 24, 2024 6:06amAugust 2024 6:06am0.4 %Below low normal0.9-7.0Calcium LevelAugust 2024 5:22amAugust 2024 5:22am8.6 mg/dL8.5-10.1Mean Corpuscular Hemoglobin ConcentAugust 2024 5:22amAugust 2024 5:22am33.2 g/dL29.9-35.2Calcium LevelAugust 2024 4:49amAugust 2024 4:49am8.6 mg/dL8.5-10.1Calcium LevelAugust 2024 4:49amAugust 2024 4:49am9.0 mg/dL8.5-10.1Alkaline Phosphatase October 29, 2024 1:57pmAugust 2024 1:51xq492 U/LAbove high hzanxf23-190 Eosinophils (%) (Auto)October 29, 2024 1:57pmAugust 2024 1:57pm3.6 % 0.9-7.0Calcium LevelSeptember 2024 10:39amSeptember 2024 10:39am9.2 mg/dL8.5-10.1Eosinophils (%) (Auto)November 10, 2024 10:39amSeptember 2024 10:39am1.8 %0.9-7.0Urine BilirubinSeptember 2024 11:54amNEGATIVE NEGATIVEAlbumin/Globulin (PEP)November 17, 2024 12:08pmSept2024 12:08pm0.70.7-1.7Mean Corpuscular Hemoglobin ConcentSept2024 12:08pm November 17, 2024 12:08pm31.8 g/dL29.9-35.2Blood Urea NitrogenSeptember 2024 12:08pmSeptember 2024 12:08pm37.0 mg/dLAbove high normal7.0-18.0 Calcium LevelSeptember 2024 2:15pmSeptember 2024 2:15pm8.2 mg/dL Below low normal8.5-10.1Eosinophils (%) (Auto)November 24, 2024 2:15pm November 24, 2024 2:15pm2.4 %0.9-7.0Alanine Aminotransferase (ALT/SGPT)October 22, 2024 11:40pmAugust 2024 11:40pm27 U/K66-67IjdcoujpdqRczwbh 2024 11:40pmAugust 2024 11:40pm35.5 %Below low rkyuoy23.0-54.0Urine BacteriaAugust 2024 8:56pmTRACE #/HPFAbnormal (applies to non-numeric results)NONE SEENChloride LevelAugust 2024 6:06amAugust 2024 6:06am 100 mmol/C26-361QntsrdwabtWdrins 2024 6:06amAugust 2024 6:06am34.5 % Below low nxwvla91.0-54.0Chloride LevelAugust 2024 5:22amAugust 2024 5:17ss196 mmol/D75-682Pwab Corpuscular VolumeAugust 2024 5:22amAugust 2024 5:22am86.2 fL80.0-94.0Chloride LevelAugust 2024 4:49amAugust 2024 4:38fg894 mmol/R69-681Oglxwyuh LevelAugust 2024 4:49amAugust 2024 4:58oj979 mmol/C77-551Kikzuor Aminotransferase (ALT/SGPT)October 29, 2024 1:57pmAugust 2024 1:57pm26 U/F53-70WjqicblnnhJbsdqa 2024 1:57pm October 29, 2024 1:57pm33.6 %Below low dntdem95.0-54.0Chloride LevelSeptember 2024 10:39amSeptember 2024 10:79uv266 mmol/X42-576TaymbbmxxwXgarmbtis 2024 10:39amSeptember 2024 10:39am36.1 %Below low pburqq16.0-54.0Urine Occult BloodSeptember 2024 11:54amTRACE-INEGATIVESerum Immunofixation InterpretationSeptember 2024 12:08pmSeptember 2024 12:08pmComment:. Presence of monoclonal protein is unclear at this time. Suggestrepeat in 3 to 6 months if clinically indicated.Mean Corpuscular VolumeSeptember 2024 12:08pmSeptember 2024 12:08pm87.8 fL80.0-94.0Calcium LevelSeptember 2024 12:08pmSeptember 2024 12:08pm8.7 mg/dL8.5-10.1Chloride LevelSeptember 2024 2:15pmSeptember 2024 2:97sz009 mmol/I04-581WihihenkiyEiwhgsqan 2024 2:15pmSeptember 2024 2:15pm28.4 %Below low qmylda42.0-54.0 Aspartate Amino Transf (AST/SGOT)October 22, 2024 11:40pmAugust 2024 11:40pm24 U/F07-92KppkocotlsOzlppp 2024 11:40pmAugust 2024 11:40pm 12.0 g/dLBelow low .0-18.0Urine BilirubinAugust 2024 8:56pm NEGATIVENEGATIVECarbon Dioxide LevelAugust 2024 6:06amAugust 2024 6:06am23.7 mmol/L21.0-32.0HemoglobinAugust 2024 6:06amAugust 2024 6:06am11.3 g/dLBelow low .0-18.0Carbon Dioxide LevelAugust 2024 5:22amAugust 2024 5:22am22.3 mmol/L21.0-32.0Mean Platelet VolumeAugust 2024 5:22amAugust 2024 5:22am10.5 fL9.5-13.5Carbon Dioxide Level October 26, 2024 4:49amAugust 2024 4:49am23.4 mmol/L21.0-32.0Carbon Dioxide LevelAugust 2024 4:49amAugust 2024 4:49am24.8 mmol/L 21.0-32.0Aspartate Amino Transf (AST/SGOT)October 29, 2024 1:57pmAugust 2024 1:57pm23 U/Z72-45JuyqqumaioSmmzrk 2024 1:57pmAugust 2024 1:57pm 10.8 g/dLBelow low .0-18.0Carbon Dioxide LevelSeptember 2024 10:39amSeptember 2024 10:39am26.2 mmol/L21.0-32.0HemoglobinSeptember 2024 10:39amSeptember 2024 10:39am11.6 g/dLBelow low .0-18.0Urine AppearanceSeptember 2024 11:54amCLEARCLEARProtein Electrophoresis Note November 17, 2024 12:08pmSeptember , 2024 12:08pmComment.Protein electrophoresis scan will follow via computer,mail, or torpedo worker delivery.Mean Platelet VolumeSeptember 2024 12:08pmSeptember , 2024 12:08pm10.0 fL 9.5-13.5Chloride LevelSeptember 2024 12:08pmSeptember , 2024 12:08pm 103 mmol/W25-465Zryawv Dioxide LevelSeptember 2024 2:15pmSeptember 2024 2:15pm23.4 mmol/L21.0-32.0HemoglobinSeptember 2024 2:15pmSeptember 2024 2:15pm9.0 g/dLBelow low rsgqsi46.0-18.0BUN/Creatinine RatioAugust 2024 11:40pmAugust 2024 11:40pm12.1Immature Granulocyte # (Auto) October 22, 2024 11:40pmAugust 2024 11:40pm0.10 10 3/uLAbove high normal 0.00-0.03Urine Occult BloodAugust 2024 8:56pmLARGEAbnormal (applies to non-numeric results)NEGATIVECreatinineAugust 2024 6:06amAugust 2024 6:06am3.38 mg/dLAbove high normal0.70-1.30Immature Granulocyte # (Auto)October 24, 2024 6:06amAugust 2024 6:06am0.10 10 3/uLAbove high normal0.00-0.03 CreatinineAugust 2024 5:22amAugust 2024 5:22am3.17 mg/dLAbove high normal0.70-1.30Platelet CountAugust 2024 5:22amAugust 2024 5:09yc305 10 3/dF783-671FolufydoxwIfsisz 25th, 2025 4:49amAugust 2024 4:49am3.04 mg/dLAbove high normal0.70-1.30CreatinineAugust 2024 4:49amAugust 2024 4:49am2.86 mg/dLAbove high normal0.70-1.30BUN/Creatinine RatioAugus2024 1:57pmAugust 2024 1:57pm12.3Immature Granulocyte # (Auto)October 29, 2024 1:57pmAugust 2024 1:57pm0.31 10 3/uLAbove high normal0.00-0.03 CreatinineSeptember 2024 10:39amSeptember 2024 10:39am4.15 mg/dLAbove high normal0.70-1.30Immature Granulocyte # (Auto)November 10, 2024 10:39am November 10, 2024 10:39am0.04 10 3/uLAbove high normal0.00-0.03Urine Color November 17, 2024 11:54amLT. YELLOWYELLOWFree [place] Light Chains, Quant November 17, 2024 12:08pmSeptember 2024 12:50rj080.8 mg/LAbnormal (applies to non-numeric results)3.3-19.4Platelet CountSept2024 12:08pmSeptember 2024 12:53ng338 10 3/yW201-877Thzbzs Dioxide Level November 17, 2024 12:08pmSeptember 2024 12:08pm23.7 mmol/L21.0-32.0 CreatinineSeptember 2024 2:15pmSeptember 2024 2:15pm3.29 mg/dLAbove high normal0.70-1.30Immature Granulocyte # (Auto)November 24, 2024 2:15pm November 24, 2024 2:15pm0.03 10 3/uL0.00-0.03Blood Urea NitrogenAugus2024 11:40pmAugust 2024 11:40pm46.0 mg/dLAbove high normal7.0-18.0Immature Granulocyte % (Auto)October 22, 2024 11:40pmAugust 2024 11:40pm0.5 % 0.0-0.5Urine AppearanceAugust 2024 8:56pmSL CLOUDYCLEAREstimated GFR ()October 24, 2024 6:06amAugu2024 6:21dm95Niity low normal>=60 mL/min/1.73m 2Immature Granulocyte % (Auto)October 24, 2024 6:06am October 24, 2024 6:06am0.6 %Above high normal0.0-0.5Estimated GFR ()October 25, 2024 5:2024 5:33vp58Safzc low normal>=60 mL/min/1.73m 2Red Blood CountAugus2024 5:222024 5:22am 3.63 10 6/uLBelow low normal4.70-6.10Estimated GFR ()October 26, 2024 4:49amAugu2024 4:16qh62Yljzk low normal>=60 mL/min/1.73m 2 Estimated GFR ()October 27, 2024 4:492024 4:49am 28Below low normal>=60 mL/min/1.73m 2Blood Urea NitrogenAugust 2024 1:57pm October 29, 2024 1:57pm41.0 mg/dLAbove high normal7.0-18.0Immature Granulocyte % (Auto)October 29, 2024 1:57pmAugust 2024 1:57pm1.7 %Above high normal 0.0-0.5Estimated GFR ()November 10, 2024 10:39amSept2024 10:82te84Kpbct low normal>=60 mL/min/1.73m 2Immature Granulocyte % (Auto) November 10, 2024 10:39amSeptember 2024 10:39am0.3 %0.0-0.5Urine Glucose (UA)November 17, 2024 11:54amNEGATIVE mg/dLNEGATIVEFree [place] Light Chains, QuantSeptember 2024 12:08pmSeptember 2024 12:52jh294.4 mg/LAbnormal (applies to non-numeric results)5.7-26.3Red Blood CountSeptember 2024 12:08pmSeptember , 2024 12:08pm3.62 10 6/uLBelow low normal4.70-6.10 CreatinineSeptember 2024 12:08pmSeptember , 2024 12:08pm3.78 mg/dL Above high normal0.70-1.30Estimated GFR ()November 24, 2024 2:15pmSeptember 2024 2:13kt04Ugkad low normal>=60 mL/min/1.73m 2Immature Granulocyte % (Auto)November 24, 2024 2:15pmSeptember 2024 2:15pm0.4 % 0.0-0.5Calcium LevelAugust 2024 11:40pmAugust 2024 11:40pm8.5 mg/dL 8.5-10.1Lymphocytes # (Auto)October 22, 2024 11:40pmAugust 2024 11:40pm 1.6 10 3/uL1.2-3.8Urine ColorAugust 2024 8:56pmLT. YELLOWYELLOWEstimated GFR (Non- AmericanAugust 2024 6:06amAugust 2024 6:41uo47Buesw low normal>=60 mL/min/1.73m 2Lymphocytes # (Auto)October 24, 2024 6:06amAugust 2024 6:06am1.6 10 3/uL1.2-3.8Estimated GFR (Non- AmericanAugust 2024 5:22amAugust 2024 5:76rn95Mbtse low normal>=60 mL/min/1.73m 2 Red Cell Distribution WidthAugust 2024 5:22amAugust 2024 5:22am13.7 %11.0-15.0Estimated GFR (Non- AmericanAugust 2024 4:49amAugust 2024 4:88zp49Hulra low normal>=60 mL/min/1.73m 2Estimated GFR (Non- AmericanAugust 2024 4:49amAugust 2024 4:97kv42Lsbxd low normal>=60 mL/min/1.73m 2Calcium LevelAugust 2024 1:57pmAugust 2024 1:57pm8.4 mg/dLBelow low normal8.5-10.1Lymphocytes # (Auto)October 29, 2024 1:57pmAugust 2024 1:57pm1.7 10 3/uL1.2-3.8Estimated GFR (Non- AmericanSept2024 10:39amSeptember 2024 10:56kf40Whkge low normal>=60 mL/min/1.73m 2Lymphocytes # (Auto)November 10, 2024 10:39amSeptember 2024 10:39am2.1 10 3/uL1.2-3.8Urine Hyaline CastsSeptember 2024 11:54amRAREFree [place]/Lambda Light Chain RatioSeptember 2024 12:08pmSeptember 2024 12:08pm1.170.26-1.65Performed at: [facility] [address] [id number] Director: Ivan Marrufo PhD, Phone: [phone] Cell Distribution WidthSeptember 2024 12:08pmSeptember 2024 12:08pm13.6 % 11.0-15.0Estimated GFR ()November 17, 2024 12:08pmSeptember 2024 12:74wk45Myzbd low normal>=60 mL/min/1.73m 2Estimated GFR (Non- AmericanSeptember 2024 2:15pmSept2024 2:86dv65Nzdng low normal>=60 mL/min/1.73m 2Lymphocytes # (Auto)November 24, 2024 2:15pm November 24, 2024 2:15pm2.0 10 3/uL1.2-3.8Chloride Levelgus2024 11:40pmAugust 2024 11:40pm97 mmol/LBelow low oscmei88-015Chnnrdcgvtq (%) (Auto)October 22, 2024 11:40pmAugust 2024 11:40pm7.6 %Below low normal 20.5-60.0Urine Glucose (UA)October 23, 2024 8:56pmNEGATIVE mg/dLNEGATIVEGlucose LevelAugus2024 6:06amAugust 2024 6:95hm991 mg/bU41-738Ioxtkvcwzzp (%) (Auto)October 24, 2024 6:06amAugu2024 6:06am9.5 %Below low normal 20.5-60.0Glucose LevelAugus2024 5:22amAugu2024 5:03vv679 mg/dL Above high reutta99-329Bzsswebem White Blood CountAugus2024 5:22ugu2024 5:22am15.7 10 3/uLAbove high normal4.0-11.0Glucose LevelOctober 26, 2024 4:49amAugu2024 4:62rm685 mg/dLAbove high dnymek85-914Ynndzlo Level October 27, 2024 4:49amAugust 2024 4:41cc728 mg/hQ16-411Xfmsecux Level October 29, 2024 1:57pmAugust 2024 1:78xu679 mmol/M81-786Uzbivovpvge (%) (Auto)October 29, 2024 1:57pmAugust 2024 1:57pm9.5 %Below low normal 20.5-60.0Glucose LevelSeptember 2024 10:39amSeptember 2024 10:39am95 mg/nE70-261Uhfiherbbfl (%) (Auto)November 10, 2024 10:39amSeptember 2024 10:39am16.7 %Below low wchlay26.5-60.0Urine KetonesSept2024 11:54am NEGATIVE mg/dLNEGATIVEImmunoglobulin ASeptember 2024 12:08pmSeptember 2024 12:65rc149 mg/dLAbnormal (applies to non-numeric results)90-386 Corrected White Blood CountSeptember 2024 12:08pmSeptember 2024 12:08pm7.1 10 3/uL4.0-11.0Estimated GFR (Non- AmericanSeptember 2024 12:08pmSeptember 2024 12:99ir01Lcale low normal>=60 mL/min/1.73m 2 Glucose LevelSeptember 2024 2:15pmSeptember 2024 2:98mc953 mg/dL Above high xsfipl41-824Fcenzhippnc (%) (Auto)November 24, 2024 2:15pm November 24, 2024 2:15pm25.2 %20.5-60.0Carbon Dioxide LevelAugust 2024 11:40pmAugust 2024 11:40pm25.1 mmol/L21.0-32.0Mean Corpuscular Hemoglobin October 22, 2024 11:40pmAugust 2024 11:40pm29.3 pg25.9-34.0Urine Ketones October 23, 2024 8:56pmNEGATIVE mg/dLNEGATIVEPotassium LevelAugust 2024 6:06amAugust 2024 6:06am3.4 mmol/LBelow low normal3.5-5.1Mean Corpuscular HemoglobinAugust 2024 6:06amAugust 2024 6:06am28.6 pg25.9-34.0 Potassium LevelAugust 2024 5:22amAugust 2024 5:22am3.3 mmol/LBelow low normal3.5-5.1Potassium LevelAugust 2024 4:49amAugust 2024 4:49am 3.3 mmol/LBelow low normal3.5-5.1Potassium LevelAugust 2024 4:49amAugust 2024 4:49am3.3 mmol/LBelow low normal3.5-5.1Carbon Dioxide LevelAugust 2024 1:57pmAugust 2024 1:57pm23.9 mmol/L21.0-32.0Mean Corpuscular HemoglobinAugust 2024 1:57pmAugust 2024 1:57pm28.3 pg25.9-34.0 Potassium LevelSeptember 2024 10:39amSeptember 2024 10:39am4.3 mmol/L 3.5-5.1Mean Corpuscular HemoglobinSeptember 2024 10:39amSeptember 2024 10:39am28.6 pg25.9-34.0Urine Leukocyte EsteraseSeptember 2024 11:54am NEGATIVENEGATIVEImmunoglobulin MSeptember 2024 12:08pmSeptember 2024 12:30ez559 mg/qR79-045Rhhulnc LevelSeptember 2024 12:08pmSeptember 2024 12:08pm94 mg/xN68-628Khidubxcw LevelSeptember 2024 2:15pmSeptember 2024 2:15pm3.6 mmol/L3.5-5.1Mean Corpuscular HemoglobinSeptember 2024 2:15pmSeptember 2024 2:15pm27.6 pg25.9-34.0CreatinineAugust 2024 11:40pmAugust 2024 11:40pm3.79 mg/dLAbove high normal0.70-1.30Mean Corpuscular Hemoglobin ConcentAugust 2024 11:40pmAugust 2024 11:40pm 33.8 g/dL29.9-35.2Urine Leukocyte EsteraseAugust 2024 8:56pmNEGATIVE NEGATIVESodium LevelAugust 2024 6:06amAugust 2024 6:27cp756 mmol/L Below low yefdum997-342Vtfj Corpuscular Hemoglobin ConcentAugust 2024 6:06amAugust 2024 6:06am32.8 g/dL29.9-35.2Sodium LevelAugust 2024 5:22amAugust 2024 5:18em793 mmol/LBelow low bwqqod757-446Gdepzj Level October 26, 2024 4:49amAugust 2024 4:02kz952 mmol/R233-469Fvhcdh Level October 27, 2024 4:49amAugust 2024 4:99pl759 mmol/G512-890Uvtojzofza October 29, 2024 1:57pmAugust 2024 1:57pm3.34 mg/dLAbove high normal 0.70-1.30Mean Corpuscular Hemoglobin ConcentAugust 2024 1:57pmAugust 2024 1:57pm32.1 g/dL29.9-35.2Sodium LevelSeptember 2024 10:39amSeptember 2024 10:31ie652 mmol/S576-024Atql Corpuscular Hemoglobin ConcentSept2024 10:39amSeptember 2024 10:39am32.1 g/dL29.9-35.2Urine Mucus November 17, 2024 11:54amTRACEAbnormal (applies to non-numeric results)NONE SEENSerum Total ProteinSeptember 2024 12:08pmSeptember 2024 12:08pm 6.9 g/dL6.0-8.5Potassium LevelSept2024 12:08pmSeptember 2024 12:08pm4.2 mmol/L3.5-5.1Sodium LevelSeptember 2024 2:15pmSeptember 2024 2:14vs900 mmol/LBelow low icyzkw027-834Bknx Corpuscular Hemoglobin Concent November 24, 2024 2:15pmSeptember 2024 2:15pm31.7 g/dL29.9-35.2 Estimated GFR ()October 22, 2024 11:40pmAugust 2024 11:73es29Ipwzd low normal>=60 mL/min/1.73m 2Mean Corpuscular VolumeAugust 2024 11:40pmAugust 2024 11:40pm86.6 fL80.0-94.0Urine MucusAugust 2024 8:56pmNONE SEENNONE SEENMean Corpuscular VolumeAugust 2024 6:06am October 24, 2024 6:06am87.3 fL80.0-94.0Estimated GFR ()October 29, 2024 1:57pmAugust 2024 1:99pp88Rttjm low normal>=60 mL/min/1.73m 2 Mean Corpuscular VolumeAugust 2024 1:57pmAugust 2024 1:57pm88.0 fL 80.0-94.0Mean Corpuscular VolumeSeptember 2024 10:39amSeptember 2024 10:39am88.9 fL80.0-94.0Urine NitriteSept2024 11:54amNEGATIVENEGATIVE Albumin (Send Out)November 17, 2024 12:08pmSeptember 2024 12:08pm2.7 g/dLAbnormal (applies to non-numeric results)2.9-4.4Sodium LevelSept2024 12:08pmSeptember 2024 12:51jt407 mmol/U968-483Pkwd Corpuscular Volume November 24, 2024 2:15pmSeptember 2024 2:15pm87.1 fL80.0-94.0Estimated GFR (Non- AmericanAugust 2024 11:40pmAugust 2024 11:40pm17 Below low normal>=60 mL/min/1.73m 2Monocytes # (Auto)October 22, 2024 11:40pm October 22, 2024 11:40pm0.7 10 3/uL0.3-0.8Urine NitriteAugust 2024 8:56pm NEGATIVENEGATIVEMonocytes # (Auto)October 24, 2024 6:06amAugust 2024 6:06am0.8 10 3/uL0.3-0.8Estimated GFR (Non- AmericanAugust 2024 1:57pmAugust 2024 1:61ru64Bwgrx low normal>=60 mL/min/1.73m 2Monocytes # (Auto)October 29, 2024 1:57pmAugust 2024 1:57pm1.0 10 3/uLAbove high normal0.3-0.8Monocytes # (Auto)November 10, 2024 10:39amSeptember 2024 10:39am0.9 10 3/uLAbove high normal0.3-0.8Urine pHSeptember 2024 11:54am 5.55.0-9.3Rlwsr-1-PahfcpsjcEeetvinjp 2024 12:08pmSeptember 2024 12:08pm0.4 g/dL0.0-0.4Phosphorus LevelSeptember 2024 12:08pmSeptember 2024 12:08pm5.3 mg/dLAbove high normal2.6-4.7Monocytes # (Auto)November 24, 2024 2:15pmSeptember 2024 2:15pm0.6 10 3/uL0.3-0.8GlobulinAugust 2024 11:40pmAugust 2024 11:40pm5.4 g/dLMonocytes (%) (Auto)October 22, 2024 11:40pmAugust 2024 11:40pm3.3 %1.7-12.0Urine pHAugust 2024 8:56pm5.55.0-9.0Monocytes (%) (Auto)October 24, 2024 6:06amAugust 2024 6:06am4.9 %1.7-12.0GlobulinAugust 2024 1:57pmAugust 2024 1:57pm 5.9 g/dLMonocytes (%) (Auto)October 29, 2024 1:57pmAugust 2024 1:57pm5.2 %1.7-12.0Monocytes (%) (Auto)November 10, 2024 10:39amSeptember 2024 10:39am7.3 %1.7-12.0Urine ProteinSeptember 2024 11:54am>=300 mg/dLAbnormal (applies to non-numeric results)NEG/OUCNHNorde-2-QwiwwsthsOzurjywce 2024 12:08pmSeptember 2024 12:08pm1.1 g/dLAbnormal (applies to non-numeric results)0.4-1.0Monocytes (%) (Auto)November 24, 2024 2:15pmSeptember 2024 2:15pm8.2 %1.7-12.0Glucose LevelAugust 2024 11:40pmAugust 2024 11:09ad822 mg/dLAbove high jhmutv76-438Hwpf Platelet VolumeAugust 2024 11:40pmAugust 2024 11:40pm10.3 fL9.5-13.5Urine ProteinAugust 2024 8:51sd735 mg/dLAbnormal (applies to non-numeric results)NEG/TRACEMean Platelet VolumeAugust 2024 6:06amAugust 2024 6:06am10.8 fL9.5-13.5Glucose LevelAugust 2024 1:57pmAugust 2024 1:68kq439 mg/dLAbove high normal 74-106Mean Platelet VolumeAugust 2024 1:57pmAugust 2024 1:57pm9.9 fL 9.5-13.5Mean Platelet VolumeSeptember 2024 10:39amSeptember 2024 10:39am10.3 fL9.5-13.5Urine RBCSeptember 2024 11:94ps0-4 #/HPF0-2Beta GlobulinsSeptember 2024 12:08pmSeptember 2024 12:08pm1.1 g/dL0.7-1.3 Mean Platelet VolumeSeptember 2024 2:15pmSeptember 2024 2:15pm9.6 fL 9.5-13.5Potassium LevelAugust 2024 11:40pmAugust 2024 11:40pm3.2 mmol/LBelow low normal3.5-5.1Neutrophils # (Auto)October 22, 2024 11:40pmAugust 2024 11:40pm18.9 10 3/uLAbove high normal1.4-6.5Urine RBCAugust 2024 8:92wm4-92 #/HPFAbnormal (applies to non-numeric results)0-2Neutrophils # (Auto) October 24, 2024 6:06amAugust 2024 6:06am14.1 10 3/uLAbove high normal 1.4-6.5Potassium LevelAugust 2024 1:57pmAugust 2024 1:57pm3.8 mmol/L 3.5-5.1Neutrophils # (Auto)October 29, 2024 1:57pmAugust 2024 1:57pm14.6 10 3/uLAbove high normal1.4-6.5Neutrophils # (Auto)November 10, 2024 10:39am November 10, 2024 10:39am8.9 10 3/uLAbove high normal1.4-6.5Urine Specific GravitySeptember 2024 11:54am1.0251.005-1.025Gamma GlobulinsSeptember 2024 12:08pmSeptember 2024 12:08pm1.7 g/dL0.4-1.8Neutrophils # (Auto)November 24, 2024 2:15pmSeptember 2024 2:15pm4.9 10 3/uL1.4-6.5 Sodium LevelAugust 2024 11:40pmAugust 2024 11:42tg303 mmol/LBelow low ivlaug526-692Innocwvznbm (%) (Auto)October 22, 2024 11:40pmAugust 2024 11:40pm87.6 %Above high ygnaso03.0-75.0Urine Specific GravityAugust 2024 8:56pm1.0251.005-1.025Neutrophils (%) (Auto)October 24, 2024 6:06amAugust 2024 6:06am84.2 %Above high mrusyf29.0-75.0Sodium LevelAugust 2024 1:57pmAugust 2024 1:07nx099 mmol/LBelow low vhgnuc017-442Unnwbcveliv (%) (Auto)October 29, 2024 1:57pmAugust 2024 1:57pm79.5 %Above high normal 43.0-75.0Neutrophils (%) (Auto)November 10, 2024 10:39amSeptember 2024 10:39am72.4 %43.0-75.0Urine SpermSeptember 2024 11:54amSEENNeutrophils (%) (Auto)November 24, 2024 2:15pmSeptember 2024 2:15pm63.0 %43.0-75.0Total BilirubinAugust 2024 11:40pmAugust 2024 11:40pm0.4 mg/dL0.2-1.0 Platelet CountAugust 2024 11:40pmAugust 2024 11:96jb987 10 3/uL 150-450Urine Squamous Epithelial CellsAugust 2024 8:56pmFEW #/LPFAbnormal (applies to non-numeric results)NONE/RAREPlatelet CountAugust 2024 6:06am October 24, 2024 6:09yt254 10 3/fJ634-720Uytrm BilirubinAugust 2024 1:57pmAugust 2024 1:57pm0.4 mg/dL0.2-1.0Platelet CountAugust 2024 1:57pmAugust 2024 1:82mm644 10 3/uLAbove high kssnyr163-833Ygdgukfk Count November 10, 2024 10:39amSeptember 2024 10:70en951 10 3/dN296-802Ubnuo Squamous Epithelial CellsSeptember 2024 11:54amRARE #/LPFNONE/RAREPlatelet CountSeptember 2024 2:15pmSeptember 2024 2:11bc349 10 3/sX603-184 Total ProteinAugust 2024 11:40pmAugust 2024 11:40pm7.8 g/dL6.4-8.2 Red Blood CountAugust 2024 11:40pmAugust 2024 11:40pm4.10 10 6/uL Below low normal4.70-6.10Urine UrobilinogenAugust 2024 8:56pm1.0 EU/dL 0.2-1.0Red Blood CountAugust 2024 6:06amAugust 2024 6:06am3.95 10 6/uLBelow low normal4.70-6.10Total ProteinAugust 2024 1:57pmAugust 2024 1:57pm7.7 g/dL6.4-8.2Red Blood CountAugust 2024 1:57pmAugust 2024 1:57pm3.82 10 6/uLBelow low normal4.70-6.10Red Blood CountSeptember 2024 10:39amSeptember 2024 10:39am4.06 10 6/uLBelow low normal4.70-6.10 Urine UrobilinogenSeptember 2024 11:54am0.2 EU/dL0.2-1.0Red Blood Count November 24, 2024 2:15pmSeptember 2024 2:15pm3.26 10 6/uLBelow low normal4.70-6.10Red Cell Distribution WidthAugust 2024 11:40pmAugust 2024 11:40pm13.6 %11.0-15.0Urine WBCAugust 2024 8:03fb5-9 #/HPFAbnormal (applies to non-numeric results)NONE SEENRed Cell Distribution WidthAugust 2024 6:06amAugu2024 6:06am13.5 %11.0-15.0Red Cell Distribution Width October 29, 2024 1:57pmAugust 2024 1:57pm14.1 %11.0-15.0Red Cell Distribution WidthSeptember 2024 10:39amSeptember 2024 10:39am14.0 % 11.0-15.0Urine WBCSeptember 2024 11:19ky1-2 #/HPFAbnormal (applies to non- numeric results)NONE SEENRed Cell Distribution WidthSeptember 2024 2:15pm November 24, 2024 2:15pm13.4 %11.0-15.0Corrected White Blood CountAugust 2024 11:40pmAugust 2024 11:40pm21.5 10 3/uLAbove high normal4.0-11.0 Corrected White Blood CountAugust 2024 6:06amAugust 2024 6:06am16.7 10 3/uLAbove high normal4.0-11.0Corrected White Blood CountAugust 2024 1:57pmAugust 2024 1:57pm18.4 10 3/uLAbove high normal4.0-11.0Corrected White Blood CountSeptember 2024 10:39amSeptember 2024 10:39am12.3 10 3/uLAbove high normal4.0-11.0Corrected White Blood CountSept2024 2:15pmSept2024 2:15pm7.8 10 3/uL4.0-11.0 Microbiology Results Procedure Source Result Collection Date/Time Result Date/Time Result Comment Performing Site Urine Culture Urine, Not Otherwise Specified No Growth 2 Days October 23, 2024 9:56pm October 26, 2024 12:17pm [facility] [id number] [address] [place] [id number] Vital Signs Vital Reading Result Reference Range Collection Date/Time Height 70 [in_i] November 03, 2024 1:18bzHtaiwx999.41 kgSept2024 1:42pmBody Giyxsgunnwt25.2 [degF]97.6-99.0Sept2024 1:42pmHeart Rate68 /jmv19-964 November 03, 2024 1:42pmRespiratory rate20 /mlu18-30Bfjmtuukb 2nd, 2025 1:42pm Oxygen saturation by Pulse %95-100Se2024 1:42pmBP Buqzetyi738 mm[Hg]100-140Sept2024 1:42pmBP Prrncahmb63 mm[Hg]60-100 November 03, 2024 1:42pmBMI (Body Mass Index)53.6 kg/z8Gnrkudpnk2024 1:53cqSjpitm04 [in_i]November 09, 2024 1:41ioKdovna962.64 kgSept2024 1:03pmBody Okvwwtrnewt23.0 [degF]97.6-99.0Sept2024 1:03pmHeart Rate77 /mxv92-875Mjlijppbx 8th, 2025 1:03pmBP Aacaptjl174 mm[Hg]100-140Sept2024 1:03pmBP Jooafbunk33 mm[Hg]60-100Sept2024 1:03pmBMI (Body Mass Index)53.6 kg/s1Hsppuqhzb2024 1:03pmBody Meybkctlfox79.8 [degF] 97.6-99.0Sept2024 10:18amHeart Rate82 /sfm09-359ZjmplsytfNovember 11, 2024 10:18amRespiratory rate16 /rrm80-13Xdtpsmhkp 2024 10:18amOxygen saturation by Pulse rphtroay07 %95-100September 2024 10:18amBP Sohwbrsc917 mm[Hg]100-140September 2024 10:18amBP Kycmneaju13 mm[Hg]60-100September 2024 10:59byAqurey54 [in_i]November 13, 2024 10:30qlCgapqx465.82 kg November 13, 2024 10:52amHeart Rate78 /ood76-596Txirbhbmj 2024 10:52am Respiratory rate18 /kpx01-41Smjhlnlwc 2024 10:52amOxygen saturation by Pulse umhnlrem28 %95-100ptember 2024 10:52amBP Xyizpsvz421 mm[Hg]100-140 November 13, 2024 10:52amBP Grvjnykgv05 mm[Hg]60-100September 2024 10:52amBMI (Body Mass Index)53.1 kg/b6Sdypsrmig 2024 10:57vuPreauv04 [in_i]November 23, 2024 2:61tgPganbm097.82 kgSeptember 2024 2:06pmBody Kobfnribtdp78.8 [degF]97.6-99.0September 2024 2:06pmHeart Rate76 /min 60-100September 2024 2:06pmBP Byigwhop442 mm[Hg]100-140September 2024 2:06pmBP Xlhocqssx50 mm[Hg]60-100September 2024 2:06pmBMI (Body Mass Index)53.1 kg/e5Ijjubndkq 2024 2:69spOluanb48 [in_i]December 21, 2024 2:42mmSdkahf163.04 kgOctober 2024 2:24pmBody Uifzbgarxqr80.1 [degF] 97.6-99.0October 2024 2:24pmHeart Rate69 /vhb95-141Gajshqy 2024 2:24pmRespiratory rate18 /swy49-38Pkfqiae 2024 2:24pmOxygen saturation by Pulse clelejnr69 %95-100Oct2024 2:24pmBP Zmxprcpe581 mm[Hg]100-140 December 21, 2024 2:24pmBP Sockdfqik02 mm[Hg]60-100Oct2024 2:24pmBMI (Body Mass Index)57.2 kg/w0Mtxamsg2024 2:31vbVacyup66 [in_i]January 13, 2025 3:83eeDnxcop193.91 [facility] 20[facility] 3:57pmHeart Rate78 /min -2024 3:57pmRespiratory rate18 /qbm86-93Blasryfw2024 3:57pmOxygen saturation by Pulse bdhymmgn98 %95-100Nov2024 3:57pmBP Lqnnmrda579 mm[Hg]100-140January 13, 2025 3:57pmBP Pclgnaqqt83 mm[Hg]60-100 January 13, 2025 3:57pmBMI (Body Mass Index)57.8 kg/m8Vffdryha2024 3:57pm Advance Directives Advance Directive Response Recorded Date/ Time Advance Directives No November 9:21am Insurance Providers Guarantor Suresh Vallejo Address mail return unSensser un [employer] Info.Home Phone: Coverage Status Update:2024 Payer Group Member ID Coverage Type Subscriber Relationship to Subscriber Effective Date Expiration Date Kevin QUIROGA Id: [id number] L Cox Id: [id number] mail return unk un unk Home Phone: Self Encounters Encounter Location(s) Arrival/Admit Date Discharge/Departure Date Discharge/Departure Disposition Provider(s) Non-patient / Non-visit -[facility] ugust 2024 12:40am Stephanie Parish [facility] 2024 9:57pmDischarged to home care or self care (routine discharge)María Santana MDNon-patient / Vaw-otvxq-[facility] 7:06Naun Larkin-patient / [facility] 6:22Naun Larkin- patient / Ffk-iaksz-[facility] 2024 5:49Naun Larkin-patient / Nmb-pjqsv-[facility] 5:49Naun Larkin-patient / Ohs[facility]biopu[facility] 9:25amMartha CoenNon-patient / Uis-osoja-[facility] 2024 2:57pmSena Izquierdo , THELMAeparted Physician/Provider [facility]Sept2024 2:41pmSeptember 2024 3:10pmDischarged to home care or self care (routine discharge)Norbert Porras MD Departed Physician/Provider Office Visit-[facility] 10:44amSeptember 2024 11:30amDischarged to home care or self care (routine discharge)Abe Villegas DODeparted Physician/Provider Office Visit- [facility] Infect DisSeptember 2024 1:57pmSeptember 2024 2:21pm Discharged to home care or self care (routine discharge)Naun Zayas- patient / [employer]jz[employer]zwlgo-Zwqvm [employer] 2024 11:39amTHELMA Cabaeparted Physician/Provider Office Visit-[facility] Vascular SurgSeptember 2024 10:57amSeptember 2024 11:42amDischarged to home care or self care (routine discharge)Heidi Zhaoeparted Physician/Provider Office Visit-[facility] CardiologySeptember 2024 11:46amSeptember 2024 11:59pmDischarged to home care or self care (routine discharge)Naun English-patient / Fny-nycxh-Ipzcn [employer]September 2024 12:54pmAbdul Chiquita , MDDeparted Physician/Provider Office Visit-[facility] Infect DisSeptember 2024 2:55pmSeptember 2024 3:16pmDischarged to home care or self care (routine discharge)José Luis Marin MDNon-patient / Kfn-dnawd-Cxxrf [employer]September 2024 3:15pmRaTHELMA Borjaeparted Physician/Provider Office Visit-[facility] 2024 3:09pmOctober 2024 3:46pmDischarged to home care or self care (routine discharge)Abe Villegas DODeparted Physician/Provider Office Visit-[facility] Neph Sand January 13, 2025 3:54pmNov2024 4:25pmDischarged to home care or self care (routine discharge)Norbert Porras MD Recent Diagnosis Onset Date Admit Date Anemia of renal disease Unknown 2024 2:41pm CKD (chronic kidney disease) stage 4, GFR 15-29 ml/min Unknown November 03, 2024 2:41pm Hypertensive chronic kidney disease with stage 1 through stage 4 chronic ki Unknown November 03, 2024 2:41pm Proteinuria Unknown November 03, 2:41pm Secondary hyperparathyroidism Unknown Se pt2024 2:41pm Hypertensive chronic kidney disease with stage 1 through stage 4 chronic ki Unknown November 04, 2024 10:44am Swelling of left lower extremity Unknown November 04, 2024 10:44am Swelling of left lower extremity Unknown November 09, 2024 1:57pm Venous insufficiency of left leg Unknown November 09, 2024 1:57pm Cellulitis Unknown November 11, 2024 10:57am Essential (primary) hypertension Unknown November 11, 2024 10:57am Superficial vein thrombosis Unknown Nov 10:57am Swelling of left lower extremity Unknown November 11, 2024 10:57am Venous insufficiency of left leg Unknown November 11, 2024 10:57am Dyspnea on exertion Unknown November 132024 11:46am Essential (primary) hypertension Unknown November 13, 2024 11:46am Obstructive sleep apnea Unknown 2024 11:46am Elevated serum creatinine Unknown 2024 11:46am Swelling of left lower extremity Unknown November 23, 2024 2:55pm Venous insufficiency of left leg Unknown November 23, 2024 2:55pm CKD (chronic kidney disease) stage 4, GFR 15-29 ml/min Unknown December 21, 2024 3:09pm Essential (primary) hypertension Unknown December 21, 2024 3:09pm Obstructive sleep apnea Unknown December 21, 2024 3:09pm Lymphedema Unknown December 21 3:09pm Anemia of renal disease Unknown January 13, 2025 3:54pm CKD (chronic kidney disease) stage 4, GFR 15-29 ml/min Unknown January 13, 2025 3:54pm Hypertensive chronic kidney disease with stage 1 through stage 4 chronic ki Unknown January 13, 2025 3:54pm Proteinuria Unknown January 13, 2 025 3:54pm Secondary hyperparathyroidism Unknown No vember 2024 3:54pm Assessments Diagnosis Onset Date Resolution Status Admit Date Anemia of renal disease acuteSeptember 2024 2:41pmCKD (chronic kidney disease) stage 4, GFR 15-29 ml/minacuteSeptember 2024 2:41pmHypertensive chronic kidney disease with stage 1 through stage 4 chronic kiacuteSeptember 2024 2:41pmProteinuria acuteSept2024 2:41pmSecondary hyperparathyroidismacuteSept2024 2:41pmHypertensive chronic kidney disease with stage 1 through stage 4 chronic kiacuteSeptember 2024 10:44amSwelling of left lower extremityacute November 04, 2024 10:44amSwelling of left lower extremityacuteSeptember 2024 1:57pmVenous insufficiency of left legacuteSeptember 2024 1:57pm CellulitisacuteSeptember 2024 10:57amEssential (primary) hypertensionacute November 11, 2024 10:57amSuperficial vein thrombosisacuteSept2024 10:57amSwelling of left lower extremityacuteSeptember 2024 10:57amVenous insufficiency of left legacuteSeptember 2024 10:57amDyspnea on exertion acuteSept2024 11:46amEssential (primary) hypertensionacuteSept2024 11:46amObstructive sleep apneaacuteSept2024 11:46am Elevated serum creatininenoneactiveSept2024 11:46amSwelling of left lower extremityacuteSeptember 2024 2:55pmVenous insufficiency of left leg acuteSeptember 2024 2:55pmCKD (chronic kidney disease) stage 4, GFR 15-29 ml/minacuteOctober 2024 3:09pmEssential (primary) hypertensionacuteOctober 2024 3:09pmObstructive sleep apneaacuteOctober 2024 3:09pm LymphedemanoneactiveOctober 2024 3:09pmAnemia of renal diseaseacute January 13, 2025 3:54pmCKD (chronic kidney disease) stage 4, GFR 15-29 ml/min acuteNov2024 3:54pmHypertensive chronic kidney disease with stage 1 through stage 4 chronic kiacuteNov2024 3:54pmProteinuriaacute January 13, 2025 3:54pmSecondary hyperparathyroidismacuteNov2024 3:54pm Plan of Treatment Author Norbert Porras [facility]2024 10:46amIt was a pleasure to see Mr. Vallejo [...] him to avoid NSAIDs or any other leal-arg-sorcvgv nephrotoxic medications. I discussed with the importance [...] Will check PTH and vitamin D. Author Daniel Gloria [facility] 2024 1:39pmAssessment: # Hypertension ??? has been difficult to control. We ruled out secondary causes. # CKD vs DELIO - most recent sCr is 4.1. Following with Nephrology # SOB on exertion - Need to r/o cardiomyopathy. No chest pain/angina. He is obese and deconditioned. # Other: Morbid obesity, ZEUS (cannot tolerate CPAP), chronic fatigue. EKG 07/08/2024 ??? sinus bradycardia, first-degree AV block, LVH, 58 bpm. Echo 08/10/2024: moderate concentric LVH, EF 55%, normal diastolic function, mild aortic root dilation, 4.0 cm Plan: - HTN: improved. Continue carvedilol 25 mg BID, amlodipine 10 mg daily, hydralazine 50 mg BID, torsemide 40 mg daily. Avoiding VIKI/ARB due to DELIO. - Keep home blood pressure log and bring to next visit. - Weight loss and consistent use of CPAP are paramount. - Continue routine follow up with Nephrology and PCP - Follow-up 6 months with JASSON Pham. Author Skip [facility] 11:17iz33-aleu-qli male with known venous insufficiency recently diagnosed with superficial vein thrombosis left lower extremity now on Xarelto. Has chronic left lower extremity swelling. Patient has BMI north of 50 and has been losing some weight including 15 pound weight loss since last being seen. Plan: Thorough discussion with patient about situation. He should continue on the Xarelto for his SVT. There is no other lower extremity venous options for him that would be appropriate this time given his weight given his SVT. I am going to see the patient again in 3 months. He committed to wearing compression during this time and will continue to lose weight. At that follow-up appointment we will discuss further options including potential venogram to make sure there is no iliac vein compression long as he maintains compression therapy and weight loss. Author Juvencio Lee [facility] 11:49amQuite lengthy discussion with patient today regarding his hospital stay as [...] well as nephrology. No other change today. [facility] paperwork completed, specifically in regard to him being off work until the -this will be after he sees cardiology but also infectious disease. We may need to extend this potentially. Author [facility] Por[facility] 20[facility] 4:15pmHe has a longstanding CKD likely due to the hypertension with most recent serum creatinine of 3.2 mg/dL. His renal ultrasound showed a right renal cyst with no evidence of kidney stone or hydronephrosis. I have advised him to avoid NSAIDs or any other npch-ezg-flgwzcb nephrotoxic medications. I discussed with the importance [...] Will check PTH and vitamin D. Author José Luis Marin [facility] 2:56pmI agree patient likely had cellulitis of the left lower extremity but when he is left with now his ongoing venous dependent erythema with suspected venous insufficiency. He has chronic left lower extremity edema he tells me from an injury years past. Currently he has dry cracking skin on the leg itself and both of his soles on his feet. He will benefit from moisturizing cream in lieu of lotion to the lower extremity. He would benefit from compression of the left lower extremity before edema throughout the day worsens. Patient states he has extra-large compression stockings that his was able to get and fit for him. Patient is at risk for secondary cellulitis given his current situation. Again patient told me he is not diabetic. Patient will attempt compression along with moisturizing cream and will reevaluate how things look in 2 to 3 weeks. He is to call me sooner if symptoms change/worsen in the left lower leg. He is also to call me if fevers or chills develop Author José Luis Marin [facility] 2:22pmThe leg cannot be visualized due to compression stocking in place today. Overall patient states his left leg has continued to improve since I last saw him. He is using moisturizing cream to aid in the dry cracking skin and is wearing a compression stocking at this time. He also has seen vascular his continued compression therapy along with weight loss. He will be observed off antibiotics. He can follow-up with me as needed Author Juvencio Lee [facility] HospitalAuthored[facility] 2024 11:54amLengthy discussion with patient today that I wonder if this really is something that he could benefit from seeing a specialty clinic. He is agreeable to at least considering this. Therefore, will send to [facility] in [place] - I am not sure that further meds will really improve this.... That being said, I think we can try increasing his furosemide slightly to 60 mg. Discussed with patient that his blood pressure here today is not great, but is stable for him. He will be following up with cardiology in the spring, but he does have an appointment with nephrology next month. Continue with treatment for sleep apnea, specifically the CPAP machine. This is quite concerning, and certainly secondary to his hypertension/excetra. I await any change or update from nephrology next month. Future Tests Future scheduled test information is unavailable Pending Tests Test Name Ordered Date Scheduled Date Renal Function Panel November 03, 2024 2:03pm 6 Weeks Immunofixation, (SARAH), Urine January 13, 2025 4:17pm Renal Function PanelNov2024 4:18pm6 WeeksRenal Function Panel January 13, 2025 4:17pm Future Visits Future appointment information is unavailable Future Procedures Procedure Name Ordered Date Scheduled Date Dipstick and Microscopic November 03, 2024 2:0 3pm 6 Weeks Ferritin November 03, 2024 2:03pm 6 Weyordy franco Immunofixation,Serum November 03, 2024 2:03pm 6 Weeks Free K+L LT Chains, Qn, S November 03, 2024 2: 03pm 6 Weeks Prot Electrophoresis w/Interp November 03 2:03pm 6 Weeks Protein Electrophoresis, Serum November 03 2:03pm 6 Weeks Uric Acid November 03, 2024 2:03pm 6 Wee ks Dipstick and Microscopic January 13, 2025 4:1 7pm Hemogram CBC Without DiffJanuary 13, 2025 4:17pmHemogram CBC Without Diff January 13, 2025 4:18pm6 WeeksIron and TIBC ProfileJanuary 13, 2025 4:17pm Iron and TIBC ProfileJanuary 13, 2025 4:18pm6 WeeksFerritinJanuary 13, 2025 4:17pmFerritinNov2024 4:18pm6 WeeksImmunofixation,SerumJanuary 13, 2025 4:17pmFree K+L LT Chains, Qn, SNovember 2024 4:17pmMagnesium January 13, 2025 4:18pm6 WeeksMagnesiumJanuary 13, 2025 4:17pmProtein Creat Ratio Ur RandomJanuary 13, 2025 4:17pmParathyroid Hormone Intact January 13, 2025 4:17pmParathyroid Hormone IntactJanuary 13, 2025 4:18pm6 WeeksProt Electrophoresis w/InterpNovemb2024 4:17pmProtein Electrophoresis, SerumJanuary 13, 2025 4:17pmUric AcidJanuary 13, 2025 4:17pmUric AcidNov2024 4:18pm6 WeeksVitamin D 25 Hydroxy Total January 13, 2025 4:17pmVitamin D 25 Hydroxy TotalJanuary 13, 2025 4:18pm6 Weeks Future Medications Future medication information is unavailable Patient Instructions Patient instructions are unavailable
--- OUTSIDE RECORDS SUMMARY | 2025-01-14 15:13 | XMS_ITS | Clinical Summary ---
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 Name Role Phone Unavailable Primary Care Provider Unavailabl e Social History Tobacco UseTypesPacks/DayYears UsedDateSmoking Tobacco: Never AssessedSex and Gender InformationValueDate RecordedSex Assigned at BirthNot on fileLegal Sex Male05/16/2022 9:49 PM EDTGender IdentityNot on fileSexual OrientationNot on file Last Filed Vital Signs Vital SignReadingTime TakenCommentsBlood Lokrfgkp835/9801/16/2019 12:00 PM EST Pulse--Temperature--Respiratory Rate--Oxygen Saturation--Inhaled Oxygen Concentration--Yahnbj580 kg (351 lb)01/16/2019 12:00 PM TJKYxogam198.3 cm (5' 11 )01/16/2019 12:00 PM ESTBody Mass Index48.9501/16/2019 12:00 PM EST Plan of Treatment Not on file Insurance
--- OUTSIDE RECORDS SUMMARY | 2025-01-14 15:13 | XMS_ITS | Clinical Summary ---
Author Organization [facility] Address [address] [place] [address] Phone Care Team Providers Care Connie Cleaner Name Role Phone Unavailable Primary Care Provider Unavailabl e Social History Tobacco UseTypesPacks/DayYears UsedDateSmoking Tobacco: Never AssessedSex and Gender InformationValueDate RecordedSex Assigned at BirthNot on fileLegal Sex Male08/10/2024 10:53 AM EDTGender IdentityNot on fileSexual OrientationNot on file Plan of Treatment Health MaintenanceDue DateLast DoneCommentsCT Bnkeejmporni1973Colonoscopy 1973Colorectal Cancer Hxtaxlxim1973FIT-DNA (Cologuard)1973FIT 1973HIV Fhmgprucs1973Lipid Panel1973 3732Shvrjkxiipauj1973 Yearly Adult Fydwcsbq1973MMR Vaccines (1 of 1 - Standard series)1974 Hepatitis C Onfhqnzer21/01/1991Hepatitis B Vaccines (1 of 3 - 19+ 3-dose series) 01/03/1992DTaP/Tdap/Td Vaccines (1 - Tdap)1995PSA Prostate Cancer Wyhkmiwjm19/01/2018Pneumococcal Vaccine (1 of 1 - PCV)2023Zoster Vaccines (1 of 2)2023Influenza Vaccine (#1)2024OVID-19 Vaccine (1 - 2024- season)2024HIB VaccinesAged OutNo longer eligible based on patient's age to complete this topicHPV VaccinesAged OutNo longer eligible based on patient's age to complete this topicHepatitis A VaccinesAged OutNo longer eligible based on patient's age to complete this topicIPV VaccinesAged OutNo longer eligible based on patient's age to complete this topicMeningococcal VaccineAged OutNo longer eligible based on patient's age to complete this topicRotavirus Vaccines Aged OutNo longer eligible based on patient's age to complete this topic Insurance
--- OUTSIDE RECORDS SUMMARY | 2025-01-14 15:18 | XMS_ITS | CCD ---
Author Organization [facility] CliniSyvt Care Team Providers Care Fleet Technician Name Role Phone ROSA, DR JOHANN Fish Consulting Unavailable ROSA, DR JOHANN Fish Attending Unavailable ROSA, DR JOHANN Fish Admitting Unavailable ROSA, DR JOHANN Fish Primary Care Unavailable ILAERMELINDA Admitting Unavailable ILAERMELINDA Attending Unavailable ROSA, DR JOHANN Fish Primary Care Unavailable Rosa, DO Johann M. Primary Care Provider Rosa, DO Johann M. Referring Provider MD Eber Krause Attending Provider Rosa, Johann Unavailable Michelle Cristina Unavailable Rosa, DO Johann M. Primary Care Provider MICHELE Cristina Attending Provider ROSA, JOHANN M Primary Care Physician Rosa, DO Johann M. Primary Care Provider MICHELE Cristina Attending Provider EDVIN HASTINGS. Attending Unavailab EDVIN Webb Referring Unavailab EDVIN Webb Admitting Unavailab le ROSA, JOHANN M Admitting Unavailable ROSA, JOHANN M Attending Unavailable ROSA, JOHANN M Referring Unavailable Rosa DO, Johann M. Primary Care Provider Edvin Hastings MD Attending Provider [phone] Rosa DO, Johann M. Primary Care Provider Daniel Gloria MD Attending Provider Rosa DO, Johann M. Primary Care Provider Rosa DO, Johann M. Referring Provider Daniel Gloria MD Attending Provider Rosa DO, Johann M. Attending Provider Edvin Hastings MD Attending Provider [phone] Rosa DO, Johann M. Primary Care Provider Daniel Gloria MD Attending Provider Marker Randi HOBSON Attending Provider María Santana MD Attending Provider Tyra Eugene Attending Provider Unavailable Sena Izquierdo MD Attending Provider Norbert Porras MD Attending Provider Rosa DO, Johann M. Primary Care Provider José Luis Marin MD Attending Provider Sena Izquierdo MD Referring Provider Skip Gomez MD Attending Provider Daniel Gloria MD Attending Provider Rosa DO, Johann M. Primary Care Provider Rosa DO, Johann M. Attending Provider [phone] Daniel Gloria Attending Unavai lable Rosa, Johann M. Primary Care Unavailable Daniel Gloria Admitting Unavai lable Rosa, Johann M. Primary Care Unavailable Edvin Hastings Admitting UnavailEdvin Perez Attending Unavailabl e Daniel Gloria Attending Unavai lable Rosa, Johann M. Primary Care Unavailable Daniel Gloria Admitting Unavai lable Rosa, Johann M. Primary Care Unavailable María Santana Admitting Unavailable María Santana Attending Unavailable Daniel Gloria Attending Johann Montanez Primary Care Unavailable Daniel Gloria Admitting Alvina wilcox Allergies Allergy ClassificationReported Allergen(s)Allergy TypeDate of OnsetReaction(s) Facility (1 source)ertapenemDrug Pwijjef37-15-1899OaejwctkgSouthview Medical Center Repository Medications Current Medications MedicationDrug Class(es)DatesSig (Normalized)Sig (Original)acetaminophen 500 mg oral tablet (20 sources)Start: 05-07-2023 End: 56-63-1279doci 1 tablet by mouth every six hours as neededAcetaminophen (Tylenol Extra Strength) 500 mg tablet Active 500 MG PO Every 6 hours as needed November 03, 2024 2:51pm FreeTextSi tablet as needed Orally every 6 hrs; Note: Source Status: Taking; Provider: Rosa Henning ( ) Complies with drug therapytake 1 tablet by mouth every six hoursTylenol Extra Strength 500 MG 1 tablet as needed Orally every 6 hrs ActiveamLODIPine 10 mg oral tablet (20 sources)Dihydropyridine Calcium Channel BlockerStart: 48-66-6675wxwk 1 tablet by mouth once dailyAmlodipine 10 mg tablet Active 10 MG PO Daily February 10, 2024 1:00am Complies with drug therapyStart: 05-07-2023 End: 62-04-1388exed 5 mg by mouth once dailyAmlodipine 10 mg tablet Discontinued 5 MG PO Daily May 07, 2023 5:44pm December 25, 2023 3:17pmStart: 05-07-2023 End: 90-73-5738hdyd 0.5 tablet by mouth once dailyAmlodipine 10 mg tablet Discontinued 0.5 TAB PO Daily May 07, 2023 1:00am May 07, 2023 5:45pm FreeTextSi/2 tab Orally Once a day; Note: Source Status: Taking; Refills: 5; Provider: Rosa Henning MStart: 05-07-2023 End: 11-09-4593akbe 5 mg by mouth once dailyAmlodipine Discontinued 5 MG PO Daily May 07, 2023 5:44pm December 25, 2023 3:17pmtake 0.5 tablet by mouth once dailyamLODIPine Besylate 10 MG 1/2 tab Orally Once a day for 30 days Active take 1 tablet by mouth every twenty-four hoursamLODIPine Besylate 10 MG 1 tablet Orally Once a day for 30 day(s) Activecarvedilol 25 mg oral tablet (14 sources)alpha-Adrenergic Jasson, beta-Adrenergic BlockerStart: 07-08-2024 take 1 tablet by mouth twice daily at mealtimeCarvedilol (Coreg) 25 mg tablet Active 25 MG PO Twice daily 60 30 3 July 08, 2024 12:00am must administer with a meal/food Complies with drug therapyCPAP (20 sources)Start: 70-77-4609FZIM Active 0 .Route .MEDSULY May 07, 2023 12:00am Medication Name: CPAP Machine; Note: SourceStatus: Taking; Provider: Rosa Henning ( )Start: 97-86-1966LAZO Active 0 .Route .MEDSUPPLY May 07, 2023 1:00am Medication Name: CPAP Machine; Note: Source Status: Taking; Provider: Rosa Henning ( )Start: 04-15-2820DWIU Active 0 .ROUTE .MEDSULY May 07, 2023 1:00am Medication Name: CPAP Machine; Note: Source Status: Taking; Provider: Rosa Henning ( )CPAP Machine (6 sources)CPAP Machine Activeergocalciferol 1.25 mg oral capsule (9 sources)Provitamin D2 CompoundStart: 13-82-4603ekbt 1 capsule by mouth every weekVitamin D (Ergocalciferol) 1.25 MG (45052 UT) 1 capsule Orally weekly for 90 days Oct, ActivehydrALAZINE hydrochloride 50 mg oral tablet (7 sources)Arteriolar VasodilatorStart: 93-88-5023nzfy 1 tablet by mouth twice dailyHydralazine 50 mg tablet Active 50 MG PO Twice daily November 03, 2024 12:00am Complies with drugtherapyrivaroxaban 10 mg oral tablet (13 sources)Factor Xa InhibitorStart: 10-88-2193gvso 1 tablet by mouth once dailyRivaroxaban (Xarelto) 10 mg tablet Active 10 MG PO Daily November 04, 2024 10:52am Complies with drug therapyStart: 11-03-2024 End: 73-66-8294fxhp 2 tablets by mouth once dailyRivaroxaban (Xarelto) 10 mg tablet Discontinued 20 MG PO Daily November 03, 2024 12:00am November 04, 2024 10:53am for 35 daystorsemide 20 mg oral tablet (14 sources)Loop DiureticStart: 09-30-4029hmio 3 tablets by mouth once daily Torsemide 20 mg tablet Active 60 MG PO Daily 90 30 0 December 21, 2024 3:38pm Complies with drug therapyStart: 11-04-2024 End: 31-84-9981cwnl 2 tablets by mouth once dailyTorsemide 20 mg tablet Discontinued 40 MG PO Daily November 04, 2024 12:00am December 21, 2024 3: 40pmStart: 11-03-2024 End: 62-82-6420mobh 1 tablet by mouth once daily in the morningTorsemide 40 mg tablet Discontinued 40 MG PO Every morning November 03, 2024 12:00am November 04, 2024 10:53amStart: 75-08-2324sbwo 1 tablet by mouth once daily in the morningTorsemide 40 mg tablet Active 40 MG PO Every morning November 03, 2024 12:00am Complies with drugtherapyTylenol Extra Strength 500 MG (12 sources)take 1 tablet by mouth every six hours as neededTylenol Extra Strength 500 MG 1 tablet as needed Orally every 6 hrs Active Completed/Discontinued Medications MedicationDrug Class(es)DatesSig (Normalized)Sig (Original)cefTRIAXone 1000 mg injection (7 sources)Cephalosporin AntibacterialStart: 11-03-2024 End: 18-13-1459yqrdbp 1 g by intramuscular injection once dailyCeftriaxone 1 gram recon soln Discontinued 1 GM IM Daily November 03, 2024 12:00am November 2:01pmcloNIDine hydrochloride 0.1 mg oral tablet (20 sources)Central alpha-2 Adrenergic AgonistStart: 07-08-2024 End: 15-57-1716bryl 1 tablet by mouth three times dailyClonidine Hcl 0.1 mg tablet Discontinued 0.1 MG PO Three times daily July 08, 2024 3:16pm November 03, 2024 2:50pmStart: 03-11-2024 End: 48-77-4573obmx 1 tablet by mouth three times dailyClonidine Hcl 0.2 mg tablet Discontinued 0.2 MG PO Three times daily 270 90 1 March 11, 2024 1:00 am June 10, 2024 3:37pmStart: 02-10-2024 End: 84-47-4812opoe 2 tablets by mouth three times dailyClonidine Hcl 0.1 mg tablet Discontinued 0.2 MG PO Three times daily February 10, 2024 1:00am July 082024 3:16pmhydroCHLOROthiazide 25 mg oral tablet (20 sources)Thiazide DiureticStart: 10-13-2024 End: 40-19-3335tyzs 1 tablet by mouth once dailyHydrochlorothiazide 25 mg tablet Discontinued 0 .ROUTE .COMPLEX 90 0 October 13, 2024 1:53pm November 03, 2024 2:50pm TAKE 1 TABLET BY MOUTH DAILYStart: 09-17-2024 End: 25-45-2382tvxw 1 tablet by mouth once dailyHydrochlorothiazide 25 mg tablet Discontinued 25 MG PO Daily September 17, 2024 3:48pm October 13, 2024 1:53pm Start: 06-18-2024 End: 28-73-2340lyix 1 tablet by mouth once dailyHydrochlorothiazide 25 mg tablet Discontinued 0 .ROUTE .COMPLEX 90 0 June 18, 2024 7:57am September 17, 2024 3:48pm TAKE 1 TABLET BY MOUTH DAILYStart: 05-07-2023 End: 19-06-2752rnol 1 tablet by mouth once dailyHydrochlorothiazide 25 mg tablet Discontinued 25 MG PO Daily May 07, 2023 5:44pm March 09, 2024 1:39pmtake 1 tablet by mouth every twenty-four hourshydroCHLOROthiazide 25 mg 1 tablet in the morning Orally Once a day for 30 day(s) Activelisinopril 40 mg oral tablet (20 sources)Angiotensin Converting Enzyme InhibitorStart: 12-25-2023 End: 54-11-0619gjbu 1 tablet by mouth once dailyLisinopril 40 mg tablet Discontinued 40 MG PO Daily December 25, 2023 3:27pm February 10, 2024 4:13pm Start: 06-03-2023 End: 22-66-1385wbdq 1 tablet by mouth once dailyLisinopril 40 mg tablet Discontinued 0 .ROUTE .COMPLEX 30 5 June 03, 2023 11:43am December 25, 2023 3:27pm TAKE 1 TABLET BY MOUTH EVERY DAY FOR 30 DAYSStart: 06-03-2023 End: 15-89-6159ulks 1 tablet by mouth once dailyLisinopril Discontinued 0 .ROUTE .COMPLEX 30 June 03, 2023 11:43am December 25, 2023 3:27pm TAKE1 TABLET BY MOUTH EVERY DAY FOR 30 DAYSStart: 05-07-2023 End: 02-37-5332qvut 1 tablet by mouth once dailyLisinopril 40 mg tablet Discontinued 40 MG PO Daily May 07, 2023 5:44pm June 03, 2023 11:43amtake 1 tablet by mouth every twenty-four hoursLisinopril 40 mg 1 tablet Orally Once a day for 30 day(s) Teahmt59 hr metoprolol succinate 200 mg extended release oral tablet (20 sources)beta-Adrenergic BlockerStart: 06-10-2024 End: 47-80-9793tjdc 1 tablet by mouth once dailyMetoprolol Succinate 200 mg tablet extended release 24 hr Discontinued 200 MG PO Daily June 10, 2024 3:37pm July 08, 2024 3:48pmStart: 03-31-2024 End: 24-87-1887uswj 1 tablet by mouth once dailyMetoprolol Succinate 200 mg tablet extended release 24 hr Discontinued 0 .ROUTE .COMPLEX 90 March 31, 2024 3:24pm June 10, 2024 3:38pm TAKE 1 TABLET BY MOUTH DAILYStart: 03-31-2024 End: 47-27-9825gpib 1 tablet by mouth once dailyMetoprolol Succinate 200 mg tablet extended release 24 hr Discontinued 0 .ROUTE .COMPLEX 2024 3:24pm June 10, 2024 3:38pm TAKE 1 TABLET BY MOUTH DAILYStart: 03-31-2024 take 1 tablet by mouth once dailyMetoprolol Succinate 200 mg tablet extended release 24 hr Active 0 .ROUTE .COMPLEX March 3:24pm TAKE 1 TABLET BY MOUTH DAILYStart: 12-25-2023 End: 57-13-5163owpu 1 tablet by mouth once dailyMetoprolol Succinate 200 mg tablet extended release 24 hr Discontinued 200 MG PO Daily 90 90 0 December 25, 2023 3:33pm March 31, 2024 3:24pmStart: 05-07-2023 End: 12-02-6174zhwr 1 tablet by mouth once dailyMetoprolol Succinate 100 mg tablet extended release 24 hr Discontinued 100 MG PO Daily 90 90 1 May 07, 2023 1:00am December 25, 2023 3:33pmStart: 05-07-2023 End: 07-27-5046iact 1 tablet by mouth once dailyMetoprolol Succinate 50 mg tablet extended release 24 hr Discontinued 50 MG PO Daily May 07, 2023 5:44pm May 07, 2023 5:49pmStart: 31-52-5248cuyj 1 tablet by mouth every twenty-four hoursMetoprolol Succinate ER 50 MG 1 tablet Orally Once a day for 90 days Nov, ActiveStart: 33-96-5056khpg 1 tablet by mouth every twenty-four hours Metoprolol Succinate ER 25 MG 1 tablet Orally Once a day for 30 days Nov, Active Problems Active Problems Problem ClassificationProblemDateDocumented DateEpisodic/ChronicChronic kidney disease (20 sources)Chronic kidney disease stage 4; Translations: [Chronic kidney disease, stage 4 (severe)]05-77-2735HiktnyfGxld; stupor; and brain damage (20 sources)Daytime somnolence; Translations: [Somnolence]Onset: 03-08-2021 Resolved: 44-24-6911HnshowofTjowjfszf hypertension (20 sources)Essential (primary) hypertension; Translations: [Malignant hypertension]Onset: 01-23-2021 Resolved: 36-98-0876MqqvemhAtrbaumbnyiul symptoms and ill-defined conditions (14 sources)Proteinuria; Translations: [Proteinuria, unspecified]11-03-2024 EpisodicHypertension with complications and secondary hypertension (19 sources)Chronic kidney disease due to hypertension; Translations: [Hypertensive chronic kidney disease withstage 1 through stage 4 chronic kidney disease, or unspecified chronic kidney disease]02-06-0037VkbbmdhPmnbsgq and fatigue (20 sources)Chronic fatigue, unspecified; Translations: [Fatigue]Onset: 01-23-2021 Resolved: 01-89-9705EygzfkjQwypi connective tissue disease (8 sources)Other specified soft tissue disorders; Translations: [Swelling of limb]29-19-7051ClfaohwdImgba connective tissue disease (20 sources)Swelling of left lower limb; Translations: [Other specified soft tissue disorders]29-35-2123QfujxxbtMmmwf diseases of kidney and ureters (14 sources)Secondary hyperparathyroidism; Translations: [Secondary hyperparathyroidism of renal origin]27-95-8787HdhajtpXpsep diseases of veins and lymphatics (1 source)Lymphedema; Translations: [Lymphedema, not elsewhere classified] 30-62-5730RrpovibOapfq diseases of veins and lymphatics (20 sources)Venous insufficiency of leg; Translations: [Venous insufficiency (chronic) (peripheral)]83-56-7988FpguzhlrConhs diseases of veins and lymphatics (5 sources)Venous insufficiency (chronic) (peripheral); Translations: [Venous (peripheral) insufficiency, unspecified]50-32-3065XkjfyrikArrzq lower respiratory disease (18 sources)Dyspnea on exertion; Translations: [Other forms of dyspnea] 43-46-6330ZflkxxtdZnedf lower respiratory disease (3 sources)Other forms of dyspnea; Translations: [Other respiratory abnormalities]71-79-6282LzsuiggoYxxwp nutritional; endocrine; and metabolic disorders (20 sources)Severe obesity; Translations: [Other obesity due to excess calories] ChronicOther nutritional; endocrine; and metabolic disorders (4 sources)Body mass index (BMI) 50.0-59.9, adult; Translations: [Body Mass Index 50.0-59.9, adult]48-32-2167HyxfpsnZbbwlespt; thrombophlebitis and thromboembolism (6 sources)Superficial vein thrombosis; Translations: [Acute embolism and thrombosis of other specified veins]93-38-1240KzeeajkhUnlasjpp codes; unclassified (20 sources)Obstructive sleep apnea syndrome; Translations: [Obstructive sleep apnea (adult) (pediatric)]35-10-6151LmfzomjVpzxihth codes; unclassified (6 sources)Obstructive sleep apnea (adult) (pediatric); Translations: [Obstructive sleep apnea (adult)(pediatric)]Onset: 10-25-2021 Resolved: 04-07-5449SzrwaopLaty and subcutaneous tissue infections (8 sources)Cellulitis; Translations: [Cellulitis, unspecified]26-10-9242Iyzrenhq Past or Other Problems Problem ClassificationProblemDateDocumented DateEpisodic/ChronicDiabetes mellitus without complication (1 source)Other abnormal glucose; Translations: [Other abnormal glucose]Onset: 27-37-6060QtjxghdgYhfcz lower respiratory disease (1 source)Dyspnea, unspecified; Translations: [Dyspnea, unspecified]Onset: 98-67-1084SyzljkcdOzrgk screening for suspected conditions (not mental disorders or infectious disease) (11 sources)Abnormal results of kidney function studies; Translations: [Other specified abnormal findings of blood chemistry]Onset: 85-32-6533EfxqyxcmCljdvoqt veins of lower extremity (1 source)Varicose veins of bilateral lower extremities with pain; Translations: [Varicose veins of bilaterallower extremities with pain]Onset: 02-05-2024 Episodic Results Test NameValueInterpretationReference RangeFacilityBasophils Auto (Bld) [#/Vol] Ordered By: María Santana on 25-81-2014Aimsqyqte (Bld) [#/Vol]0.1 10 3/uL0.0-0.1 [facility] CenterBasophils/100 WBC Auto (Bld)Ordered By: María Santana on 63-55-3398Rjtkdgwsl/100 WBC (Bld)0.8 %0.2-2.0[facility] CenterEosinophils/100 WBC Auto (Bld)Ordered By: María Santana on 81-48-1156Bhnybfvecyk/100 WBC (Bld)2.4 %0.9-7.0[facility] Erythrocyte distribution width Auto (RBC) [Ratio]Ordered By: María Santana on 76-09-5782Szfqquvdcbo distribution width (RBC) [Ratio]13.4 %11.0-15.0[facility] Medical CenterGlomerular filtration rate (GFR) estimation in non- AmericanOrdered By: María Santana on 62-93-8578JBV/1.73 sq M.predicted among non-blacks MDRD (S/P/Bld) [Vol rate/Area]20 mL/min/{1.73_m2}Low>=60 mL/min/1.73m 2FSelect Medical Cleveland Clinic Rehabilitation Hospital, AvonHematocrit Auto (Bld) [Volume fraction]Ordered By: María Santana on 78-23-6690Jcivmjcuyg (Bld) [Volume fraction]28.4 %Low42.0-54.0[facility] CenterHemoglobin [Mass/volume] in BloodOrdered By: María Santana on 94-13-5613Gfewjpciic (Bld) [Mass/Vol]9.0 g/dLLow14.0-18.0[facility] CenterLaboratory - Chemistry and Chemistry - challengeOrdered By: María Santana on 11-24-2024 Calcium [Mass/Vol]8.2 mg/dLLow8.5-10.1FSelect Medical Cleveland Clinic Rehabilitation Hospital, AvonChloride [Moles/Vol]102 mmol/X29-881ZzgkwrhobSouthview Medical CenterCO2 [Moles/Vol]23.4 mmol/L21.0-32.0[facility] CenterCreatinine [Mass/Vol]3.29 mg/dL High0.70-1.30[facility] CenterGFR/1.73 sq M.predicted MDRD (S/P/Bld) [Vol rate/Area]24 mL/min/{1.73_m2}Low>=60 mL/min/1.73m 2FSelect Medical Cleveland Clinic Rehabilitation Hospital, AvonGlucose [Mass/Vol]123 mg/wRVyun00-965UppstagyuSouthview Medical CenterPotassium [Moles/Vol]3.6 mmol/L3.5-5.1FRegency Hospital Cleveland Westodium [Moles/Vol]135 mmol/XBja602-160JsjwstquuSouthview Medical Center Urea nitrogen [Mass/Vol]49.0 mg/dLHigh7.0-18.0[facility] Urea nitrogen/Creatinine [Mass ratio]14.9 mg/mgSouthview Medical Center Laboratory - Hematology and Cell countsOrdered By: María Santana on 11-24-2024 Immature granulocytes/100 WBC (Bld)0.4 %0.0-0.5FSelect Medical Cleveland Clinic Rehabilitation Hospital, [place]on Leukocytes [#/volume] corrected for nucleated erythrocytes in Blood by Automated counOrdered By: María Santana on 22-47-4540HBW corrected for nucl RBC Auto (Bld) [#/Vol]7.8 10 3/uL4.0-11.0[facility] CenterLymphocytes Auto (Bld) [#/Vol]Ordered By: María Santana on 53-72-1586Oumuvxnkrbq (Bld) [#/Vol]2.0 10 3/uL1.2-3.8[facility] CenterLymphocytes/100 WBC Auto (Bld)Ordered By: María Snatana on 36-59-3928Lqqybuulldj/100 WBC (Bld)25.2 % 20.5-60.0[facility] HospitalH Auto (RBC) [Entitic mass]Ordered By: María Santana on 86-23-7786ZFD (RBC) [Entitic mass]27.6 pg25.9-34.0[facility] CenterMCHC Auto (RBC) [Mass/Vol]Ordered By: María Santana on 07-83-6226ESFP (RBC) [Mass/Vol]31.7 g/dL29.9-35.2FSelect Medical Cleveland Clinic Rehabilitation Hospital, AvonMCV Auto (RBC) [Entitic vol]Ordered By: María Santana on 56-71-4601HIO (RBC) [Entitic vol]87.1 fL80.0-94.0[facility] CenterMonocytes Auto (Bld) [#/Vol]Ordered By: María Santana on 42-46-0178Dsubvpesf (Bld) [#/Vol] 0.6 10 3/uL0.3-0.8[facility] CenterMonocytes/100 WBC Auto (Bld) Ordered By: María Santana on 86-83-3299Cujilttuw/100 WBC (Bld)8.2 %1.7-12.0 [facility] CenterNeutrophils Auto (Bld) [#/Vol]Ordered By: María Santana on 29-71-5850Sdcbhorqfyd (Bld) [#/Vol]4.9 10 3/uL1.4-6.5FSelect Medical Cleveland Clinic Rehabilitation Hospital, AvonNeutrophils/100 WBC Auto (Bld)Ordered By: María Santana on 26-24-6600Lpwgqkljafs/100 WBC (Bld)63.0 %43.0-75.0[facility] CenterNo Panel InformationOrdered By: María Santana on 56-67-4145O-Reactive Protein, Quantitative6.64 mg/dLHigh<=0.50[facility] Eosinophils # (Auto)0.2 10 3/uL0.0-0.7FSelect Medical Cleveland Clinic Rehabilitation Hospital, AvonImmature Granulocyte # (Auto)0.03 10 3/uL0.00-0.03[facility] Platelet mean volume Auto (Bld) [Entitic vol]Ordered By: María Santana on 77-07-7556Xfjyoomd mean volume (Bld) [Entitic vol]9.6 fL9.5-13.5FSelect Medical Cleveland Clinic Rehabilitation Hospital, AvonPlatelets Auto (Bld) [#/Vol]Ordered By: María Santana on 36-86-0273Qyitfkzud (Bld) [#/Vol]409 10 3/gD632-558DotinviaoSouthview Medical CenterRBC Auto (Bld) [#/Vol]Ordered By: María Santana on 57-78-5173YGB (Bld) [#/Vol]3.26 10 6/uLLow4.70-6.10[facility] Hospitalerum or plasma anion gap determinationOrdered By: María Santana on 54-72-6113Fdmgy gap [Moles/Vol]13.2 mmol/LFSelect Medical Cleveland Clinic Rehabilitation Hospital, AvonAlbumin [Mass/volume] in Serum or PlasmaOrdered By: Norbert Porras on 79-18-4528Wuxtibn [Mass/Vol]2.7 g/dL Abnormal2.9-4.4FSelect Medical Cleveland Clinic Rehabilitation Hospital, AvonErythrocyte distribution width Auto (RBC) [Ratio]Ordered By: Norbert Porras on 83-62-5035Ccgqoosxvvy distribution width (RBC) [Ratio]13.6 %11.0-15.0[facility] CenterGlomerular filtration rate (GFR) estimation in non- AmericanOrdered By: Norbert Porras on 19-23-3175RZT/1.73 sq M.predicted among non-blacks MDRD (S/P/Bld) [Vol rate/Area]17 mL/min/{1.73_m2}Low>=60 mL/min/1.73m 2FSelect Medical Cleveland Clinic Rehabilitation Hospital, AvonHematocrit Auto (Bld) [Volume fraction]Ordered By: Norbert Porras on 78-89-7348Xsztsiaqqs (Bld) [Volume fraction]31.8 %Low42.0-54.0[facility] CenterHemoglobin [Mass/volume] in BloodOrdered By: Norbert Chiquita on 72-36-0746Pfiupiflsg (Bld) [Mass/Vol]10.1 g/dLLow14.0-18.0[facility] CenterIgA [Mass/volume] in Serum or PlasmaOrdered By: Norbert Chiquita on 75-60-8756CuE [Mass/Vol]443 mg/rEJjbnsfwc30-644SkaxyimviSouthview Medical Center IgG [Mass/volume] in Serum or PlasmaOrdered By: Norbert Chiquita on 56-16-4231FsQ [Mass/Vol]1809 mg/hNWfohaumi389-7182QpwxfdqyvSouthview Medical CenterIgM [Mass/volume] in Serum or PlasmaOrdered By: Norbert Chiquita on 33-26-8994GpE [Mass/Vol]111 mg/kG31-351MrcyrdgmuSouthview Medical CenterImmunofixation for UrineOrdered By: Norbert Chiquita on 28-41-4745Ehophqecroramr Immunofixation (U) [Interp]Comment.[facility] CenterComment on above:No monoclonality detected.Performed at: [facility] [id number] Director: Ivan Marrufo PhD, Phone: [phone] Immunoglobulin light chains.kappa.free [Mass/volume] in SerumOrdered By: Norbert Chiquita on 87-04-7373Ylzoocwmjytjpy light chains.kappa.free (S) [Mass/Vol]165.8 mg/LAbnormal3.3-19.4FSelect Medical Cleveland Clinic Rehabilitation Hospital, AvonImmunoglobulin light chains.kappa.free/Immunoglobulin light chains.lambda.free [MassOrdered By: Norbert Chiquita on 54-31-7435Ydaadfcdpalauh light chains.kappa.free/Immunoglobulin light chains.lambda.free (S) [Mass ratio]1.170.26-1.65[facility] CenterComment on above:Performed at: - [facility] [id number] Director: Ivan Marrufo PhD, Phone: [phone] Immunoglobulin light chains.lambda.free [Mass/volume] in Serum or PlasmaOrdered By: Norbert Porras on 04-33-6087Gcqwbtvddmzllc light chains.lambda.free [Mass/Vol] 141.4 mg/LAbnormal5.7-26.3FSelect Medical Cleveland Clinic Rehabilitation Hospital, AvonIron binding capacity [Mass/volume] in Serum or PlasmaOrdered By: Norbert Porras on 98-41-6711Ddsm binding capacity [Mass/Vol]184.0 ug/jNBtd645.0-450.0[facility] CenterIron saturation [Mass Fraction] in Serum or PlasmaOrdered By: Norbert Porras on 17-27-5188Fqih saturation [Mass fraction]8.7 %[facility] CenterLaboratory - Chemistry and Chemistry - challengeOrdered By: Norbert Porras on 35-20-8914Ndeockb [Mass/Vol]2.5 g/dLLow3.4-5.0[facility] Calcium [Mass/Vol]8.7 mg/dL8.5-10.1FSelect Medical Cleveland Clinic Rehabilitation Hospital, AvonChloride [Moles/Vol]103 mmol/T41-769ZmxcorthnSouthview Medical CenterCO2 [Moles/Vol]23.7 mmol/L21.0-32.0[facility] CenterCreatinine [Mass/Vol]3.78 mg/dL High0.70-1.30[facility] CenterFerritin [Mass/Vol]224.0 ng/mL 26.0-388.0[facility] CenterGFR/1.73 sq M.predicted MDRD (S/P/Bld) [Vol rate/Area]21 mL/min/{1.73_m2}Low>=60 mL/min/1.73m 2FSelect Medical Cleveland Clinic Rehabilitation Hospital, AvonGlucose [Mass/Vol]94 mg/lZ35-576KwdcpyqtmSouthview Medical CenterIron [Mass/Vol]16.0 ug/dLLow65.0-175.0[facility] CenterMagnesium [Mass/Vol]1.8 mg/dL1.8-2.4FSelect Medical Cleveland Clinic Rehabilitation [facility], [place]on Potassium [Moles/Vol]4.2 mmol/L3.5-5.1FRegency Hospital Cleveland Westodium [Moles/Vol]138 mmol/K099-037PjnagapsbSouthview Medical CenterUrate [Mass/Vol]9.2 mg/dLHigh3.5-7.2FSelect Medical Cleveland Clinic Rehabilitation Hospital, AvonUrea nitrogen [Mass/Vol]37.0 mg/dLHigh7.0-18.0[facility] CenterUrea nitrogen/Creatinine [Mass ratio]9.8 mg/mgSouthview Medical CenterBilirubin Ql (U)Negative NEGATIVESouthview Medical CenterGlucose (U) [Mass/Vol]NegativeNEGATIVE [facility] CenterKetones Ql (U)NegativeNEGKettering Health MiamisburgpH (U)5.5 [pH]5.0-9.0[facility] Specific gravity (U) [Rel density]1.0251.005-1.025[facility] Medical CenterUrobilinogen Qn (U)0.2 {Abiola'U}/dL0.2-1.0[facility] CenterLaboratory - Specimen informationOrdered By: Norbert Porras on 11-17-2024 Appearance (U)CLEARCLESamaritan HospitalColor (U)LT. YELLOW YELLOWSouthview Medical CenterLaboratory - UrinalysisOrdered By: Norbert Porras on 46-54-6486Szpboys casts LM Ql (Urine sed)[facility] HospitalLeukocyte esterase Test strip Ql (U)NegativeNEGKettering Health MiamisburgMucus Ql (Urine sed)TRACEAbnormalNONE SEENSouthview Medical CenterNitrite Ql (U)NegativeNEGKettering Health Miamisburg Protein (U) [Mass/Vol]202.8 mg/dLHigh<=11.9[facility] Protein Ql (U)>=300 mg/dLAbnormalNEG/TRACESouthview Medical Center Leukocytes [#/volume] corrected for nucleated erythrocytes in Blood by Automated counOrdered By: Norbert Porras on 69-99-8108GTM corrected for nucl RBC Auto (Bld) [#/Vol]7.1 10 3/uL4.0-11.0[facility] HospitalH Auto (RBC) [Entitic mass]Ordered By: Norbert Porras on 02-07-6927UWM (RBC) [Entitic mass]27.9 pg25.9-34.0[facility] HospitalHC Auto (RBC) [Mass/Vol]Ordered By: Norbert Porras on 62-90-4310LRVL (RBC) [Mass/Vol]31.8 g/dL29.9-35.2FCleveland Clinic Mercy HospitalV Auto (RBC) [Entitic vol]Ordered By: Norbert Porras on 53-13-9111YZX (RBC) [Entitic vol]87.8 fL80.0-94.0[facility] CenterNo Panel InformationOrdered By: Norbert Porras on 951129-Uqagjcc Vitamin D Total10.8 ng/mLSouthview Medical CenterComment on above:<20 ng/mL Vit D yhelaorjb42-<30 ng/mL Vit D oafagidgkjir90-095 ng/mL Vit D sufficient>100 ng/mL Potential ToxicityParathyroid Hormone (Intact)199 pg/mL Xpifllpp57-44FafodfwacSouthview Medical CenterComment on above:Performed at: - Lab[address] [id number] Director: Ivan Marrufo PhD, Phone: [phone] Level5.3 mg/dLHigh2.6-4.7FSelect Medical Cleveland Clinic Rehabilitation Hospital, AvonProtein Electrophoresis M-SpikeNot Observed g/dLNot ObservedSouthview Medical CenterProtein Electrophoresis NoteComment. [facility] Medical CenterComment on above:Protein electrophoresis scan will follow via computer,mail, or automotive parts counter associate delivery.Urine BacteriaTRACE #/HPF AbnormalNONE [facility] HospitalUrine Occult BloodTRACE-I NEGATIVESouthview Medical CenterUrine Other CastsSEEN #/LPFAbnormalNONE [facility] HospitalUrine Other CrystalsNone Seen #/HPFNone [facility] CenterUrine Random Zznncpvach462.69 mg/dL 20.00-300.00[facility] Medical CenterUrine RBC0-2 #/HPF0-2FSelect Medical Cleveland Clinic Rehabilitation Hospital, AvonUrine SpermSEENSouthview Medical CenterUrine Squamous Epithelial CellsRARE #/LPFNONE/RARESouthview Medical Center Urine WBC0-2 #/HPFAbnormalNONE SEENSouthview Medical CenterPlatelet mean volume Auto (Bld) [Entitic vol]Ordered By: Norbert Chiquita on 11-17-2024 Platelet mean volume (Bld) [Entitic vol]10.0 fL9.5-13.5FSelect Medical Cleveland Clinic Rehabilitation Hospital, AvonPlatelets Auto (Bld) [#/Vol]Ordered By: Norbert Chiquita on 11-17-2024 Platelets (Bld) [#/Vol]418 10 3/uE316-678NpwokjbjlSouthview Medical Center Protein [Mass/volume] in Serum or PlasmaOrdered By: Norbert Chiquita on 11-17-2024 Protein [Mass/Vol]6.9 g/dL6.0-8.5FSelect Medical Cleveland Clinic Rehabilitation Hospital, AvonRBC Auto (Bld) [#/Vol]Ordered By: Norbert Chiquita on 08-31-6192BKS (Bld) [#/Vol]3.62 10 6/uLLow 4.70-6.10[facility] Hospitalerum globulin measurement (mass/volume)Ordered By: Norbert Chiquita on 43-77-3697Svzstbwo (S) [Mass/Vol]4.2 g/dLAbnormal2.2-3.9[facility] Memorial Hospitalerum or plasma albumin/globulin mass ratioOrdered By: Norbert Chiquita on 38-40-5120Zizbutx/Globulin [Mass ratio]0.7 {ratio}0.7-1.7FRegency Hospital Cleveland Westerum or plasma alpha 1 globulin measurement by electrophoresis (mass/volume)Ordered By: Norbert Chiquita on 52-53-6186Hczfa 1 globulin Elph [Mass/Vol]0.4 g/dL0.0-0.4FRegency Hospital Cleveland Westerum or plasma alpha 2 globulin measurement by electrophoresis (mass/volume)Ordered By: Norbert Chiquita on 70-42-1974Ftzbm 2 globulin Elph [Mass/Vol]1.1 g/dLAbnormal0.4-1.0[facility] Serum or plasma anion gap determinationOrdered By: Norbert Porras on 11-17-2024 Anion gap [Moles/Vol]15.5 mmol/LFRegency Hospital Cleveland Westerum or plasma beta globulin measurement by electrophoresis (mass/volume)Ordered By: Norbert Porras on 87-86-8353Nyls globulin Elph [Mass/Vol]1.1 g/dL0.7-1.3FRegency Hospital Cleveland Westerum or plasma gamma globulin measurement by electrophoresis (mass/volume)Ordered By: Norbert Porras on 61-13-1165Chgkg globulin Elph [Mass/Vol]1.7 g/dL0.4-1.8[facility] Hospitalerum or plasma immunoelectrophoresis interpretationOrdered By: Norbert Porras on 11-17-2024 Interpretation IEP [Interp]Comment:.[facility] Medical CenterComment on above:Presence of monoclonal protein is unclear at this time. Suggestrepeat in 3 to 6 months if clinically indicated.Urine protein/creatinine ratioOrdered By: Norbert Porras on 67-16-4157Chazmix/Creatinine (U) [Ratio]1.34[facility] Medical CenterBasophils Auto (Bld) [#/Vol]Ordered By: María Santana on 29-23-5020Ijwtbaugj (Bld) [#/Vol]0.2 10 3/uLHigh0.0-0.1FSelect Medical Cleveland Clinic Rehabilitation Hospital, AvonBasophils/100 WBC Auto (Bld)Ordered By: María Santana on 48-29-6449Zmjstoucb/100 WBC (Bld)1.5 %0.2-2.0[facility] Eosinophils/100 WBC Auto (Bld)Ordered By: María Santana on 11-10-2024 Eosinophils/100 WBC (Bld)1.8 %0.9-7.0[facility] Erythrocyte distribution width Auto (RBC) [Ratio]Ordered By: María Santana on 20-84-1109Cohdwqefgdd distribution width (RBC) [Ratio]14.0 %11.0-15.0[facility] Medical CenterGlomerular filtration rate (GFR) estimation in non- AmericanOrdered By: María Santana on 97-16-9531AOW/1.73 sq M.predicted among non-blacks MDRD (S/P/Bld) [Vol rate/Area]15 mL/min/{1.73_m2}Low>=60 mL/min/1.[address]m [address] [place], [place] [address]Hematocrit Auto (Bld) [Volume fraction]Ordered By: María Santana on 15-12-0308Kyhdukznbc (Bld) [Volume fraction]36.1 %Low42.0-54.0[facility] CenterHemoglobin [Mass/volume] in BloodOrdered By: María Santana on 29-87-1375Ebylsdevya (Bld) [Mass/Vol]11.6 g/dLLow14.0-18.0[facility] CenterLaboratory - Chemistry and Chemistry - challengeOrdered By: María Santana on 11-10-2024 Calcium [Mass/Vol]9.2 mg/dL8.5-10.1FSelect Medical Cleveland Clinic Rehabilitation Hospital, AvonChloride [Moles/Vol]100 mmol/S31-810TnmsajqdiSouthview Medical CenterCO2 [Moles/Vol]26.2 mmol/L21.0-32.0[facility] CenterCreatinine [Mass/Vol]4.15 mg/dL High0.70-1.30[facility] CenterGFR/1.73 sq M.predicted MDRD (S/P/Bld) [Vol rate/Area]19 mL/min/{1.73_m2}Low>=60 mL/min/1.73m [address] [place], [place] [address]Glucose [Mass/Vol]95 mg/wZ40-857KsniongqsSouthview Medical CenterPotassium [Moles/Vol]4.3 mmol/L3.5-5.1FRegency Hospital Cleveland Westodium [Moles/Vol]137 mmol/C065-415JctrkxwmoSouthview Medical CenterUrea nitrogen [Mass/Vol]48.0 mg/dLHigh7.0-18.0[facility] CenterUrea nitrogen/Creatinine [Mass ratio]11.6 mg/mgSouthview Medical Center Laboratory - Hematology and Cell countsOrdered By: María Santana on 11-10-2024 Immature granulocytes/100 WBC (Bld)0.3 %0.0-0.5FSelect Medical Cleveland Clinic Rehabilitation [facility], [place]on Leukocytes [#/volume] corrected for nucleated erythrocytes in Blood by Automated counOrdered By: María Santana on 03-73-1522SUX corrected for nucl RBC Auto (Bld) [#/Vol]12.3 10 3/uLHigh4.0-11.0[facility] Lymphocytes Auto (Bld) [#/Vol]Ordered By: María Santana on 31-80-0419Tdjdakrtihe (Bld) [#/Vol]2.1 10 3/uL1.2-3.8[facility] CenterLymphocytes/100 WBC Auto (Bld)Ordered By: María Santana on 31-36-2410Esfpvvjrnub/100 WBC (Bld) 16.7 %Low20.5-60.0[facility] Medical CenterMCH Auto (RBC) [Entitic mass] Ordered By: María Santana on 25-11-1415HTA (RBC) [Entitic mass]28.6 pg25.9-34.0 [facility] Medical CenterMCHC Auto (RBC) [Mass/Vol]Ordered By: María Santana on 11-67-4289LMYB (RBC) [Mass/Vol]32.1 g/dL29.9-35.2FSelect Medical Cleveland Clinic Rehabilitation Hospital, AvonMCV Auto (RBC) [Entitic vol]Ordered By: María Santana on 25-06-7220CBR (RBC) [Entitic vol]88.9 fL80.0-94.0[facility] CenterMonocytes Auto (Bld) [#/Vol]Ordered By: María Santana on 11-10-2024 Monocytes (Bld) [#/Vol]0.9 10 3/uLHigh0.3-0.8[facility] Monocytes/100 WBC Auto (Bld)Ordered By: María Santana on 21-30-2489Froqxdmll/100 WBC (Bld)7.3 %1.7-12.0[facility] Medical CenterNeutrophils Auto (Bld) [#/Vol]Ordered By: María Santana on 01-85-0242Pymuteymhwg (Bld) [#/Vol]8.9 10 3/uLHigh1.4-6.5FSelect Medical Cleveland Clinic Rehabilitation Hospital, AvonNeutrophils/100 WBC Auto (Bld) Ordered By: María Santana on 34-58-5679Sjswjbjntxw/100 WBC (Bld)72.4 %43.0-75.0 [facility] CenterNo Panel InformationOrdered By: María Santaan on 85-82-8503M-Reactive Protein, Ebgtummqxkqw17.04 mg/dLHigh<=0.50[facility] CenterEosinophils # (Auto)0.2 10 3/uL0.0-0.7FSelect Medical Cleveland Clinic Rehabilitation Hospital, AvonImmature Granulocyte # (Auto)0.04 10 3/uLHigh0.00-0.03[facility] CenterPlatelet mean volume Auto (Bld) [Entitic vol]Ordered By: María Santana on 18-69-2220Xifofvqb mean volume (Bld) [Entitic vol]10.3 fL 9.5-13.5FSelect Medical Cleveland Clinic Rehabilitation Hospital, AvonPlatelets Auto (Bld) [#/Vol]Ordered By: María Santana on 05-32-8404Xrwxzeuyc (Bld) [#/Vol]436 10 3/pI418-503JcbynvgisSouthview Medical CenterRBC Auto (Bld) [#/Vol]Ordered By: María Santana on 00-27-1764XGJ (Bld) [#/Vol]4.06 10 6/uLLow4.70-6.10[facility] Hospitalerum or plasma anion gap determinationOrdered By: María Santana on 58-41-1540Yoetl gap [Moles/Vol]15.1 mmol/LFSelect Medical Cleveland Clinic Rehabilitation [facility], [place] Basophils Auto (Bld) [#/Vol]Ordered By: Sena Izquierdo on 64-63-7311Umgsuqxws (Bld) [#/Vol]0.1 10 3/uL0.0-0.1FSelect Medical Cleveland Clinic Rehabilitation Hospital, AvonBasophils/100 WBC Auto (Bld)Ordered By: Sena Izquierdo on 58-87-1358Damdyxzry/100 WBC (Bld)0.5 % 0.2-2.0[facility] CenterEosinophils/100 WBC Auto (Bld)Ordered By: Sena Timbo on 02-24-7875Flnykwrqzik/100 WBC (Bld)3.6 %0.9-7.0[facility] CenterErythrocyte distribution width Auto (RBC) [Ratio]Ordered By: Sena Timbo on 25-50-1504Cmrufwdnoxc distribution width (RBC) [Ratio]14.1 % 11.0-15.0[facility] CenterGlobulin Calc (S) [Mass/Vol]Ordered By: Sena Timbo on 03-17-6627Pqyyhung (S) [Mass/Vol]5.9 g/dLSouthview Medical CenterGlomerular filtration rate (GFR) estimation in non- AmericanOrdered By: Sena Timbo on 02-13-4182CEJ/1.73 sq M.predicted among non- blacks MDRD (S/P/Bld) [Vol rate/Area]20 mL/min/{1.73_m2}Low>=60 mL/min/1.73m 2 [facility] CenterHematocrit Auto (Bld) [Volume fraction]Ordered By: [facility] on 16-50-0856Oowobbxuja (Bld) [Volume fraction]33.6 %Low 42.0-54.0[facility] CenterHemoglobin [Mass/volume] in Blood Ordered By: Sena Timbo on 23-71-8873Oxhhafouzn (Bld) [Mass/Vol]10.8 g/dLLow 14.0-18.0[facility] CenterLaboratory - Chemistry and Chemistry - challengeOrdered By: Sena Timbo on 10-15-7638Rohexmx [Mass/Vol]1.8 g/dLLow 3.4-5.0[facility] CenterALP [Catalytic activity/Vol]128 U/LHigh 46-116[facility] CenterALT [Catalytic activity/Vol]26 U/L16-63 [facility] CenterAST [Catalytic activity/Vol]23 U/L15-37 [facility] CenterBilirubin [Mass/Vol]0.4 mg/dL0.2-1.0[facility] CenterCalcium [Mass/Vol]8.4 mg/dLLow8.5-10.1FSelect Medical Cleveland Clinic Rehabilitation Hospital, AvonChloride [Moles/Vol]102 mmol/O21-878QjvpaggshSouthview Medical CenterCO2 [Moles/Vol]23.9 mmol/L21.0-32.0[facility] Creatinine [Mass/Vol]3.34 mg/dLHigh0.70-1.30[facility] GFR/1.73 sq M.predicted MDRD (S/P/Bld) [Vol rate/Area]24 mL/min/{1.73_m2}Low>=60 mL/min/1.73m 2FSelect Medical Cleveland Clinic Rehabilitation Hospital, AvonGlucose [Mass/Vol]112 mg/dLHigh 74-106[facility] CenterPotassium [Moles/Vol]3.8 mmol/L3.5-5.1 [facility] CenterProtein [Mass/Vol]7.7 g/dL6.4-8.2FRegency Hospital Cleveland Westodium [Moles/Vol]134 mmol/KOnd332-800AcrqjdrfpSouthview Medical CenterUrea nitrogen [Mass/Vol]41.0 mg/dLHigh7.0-18.0[facility] CenterUrea nitrogen/Creatinine [Mass ratio]12.3 mg/mgSouthview Medical CenterLaboratory - Hematology and Cell countsOrdered By: Sena Izquierdo on 95-03-1660Hidqrniu granulocytes/100 WBC (Bld)1.7 %High0.0-0.5FSelect Medical Cleveland Clinic Rehabilitation Hospital, AvonLeukocytes [#/volume] corrected for nucleated erythrocytes in Blood by Automated counOrdered By: Sena Izquierdo on 16-79-0198LCM corrected for nucl RBC Auto (Bld) [#/Vol]18.4 10 3/uLHigh4.0-11.0[facility] CenterLymphocytes Auto (Bld) [#/Vol]Ordered By: Sena Izquierdo on 10-29-2024 Lymphocytes (Bld) [#/Vol]1.7 10 3/uL1.2-3.8[facility] Lymphocytes/100 WBC Auto (Bld)Ordered By: Sena Izquierdo on 10-29-2024 Lymphocytes/100 WBC (Bld)9.5 %Low20.5-60.0[facility] HospitalH Auto (RBC) [Entitic mass]Ordered By: Sena Timbo on 53-99-1996TLU (RBC) [Entitic mass]28.3 pg25.9-34.0[facility] HospitalHC Auto (RBC) [Mass/Vol]Ordered By: Sena Izquierdo on 82-38-3347TVKP (RBC) [Mass/Vol]32.1 g/dL 29.9-35.2FSelect Medical Cleveland Clinic Rehabilitation Hospital, AvonMCV Auto (RBC) [Entitic vol]Ordered By: Sena Timbo on 36-60-2141WBH (RBC) [Entitic vol]88.0 fL80.0-94.0[facility] CenterMonocytes Auto (Bld) [#/Vol]Ordered By: Sena Timbo on 19-42-0110Yzdrjzglc (Bld) [#/Vol]1.0 10 3/uLHigh0.3-0.8[facility] CenterMonocytes/100 WBC Auto (Bld)Ordered By: Sena Timbo on 10-29-2024 Monocytes/100 WBC (Bld)5.2 %1.7-12.0[facility] CenterNeutrophils Auto (Bld) [#/Vol]Ordered By: Sena Timbo on 69-95-4412Zdzvqhlfxbo (Bld) [#/Vol]14.6 10 3/uLHigh1.4-6.5FSelect Medical Cleveland Clinic Rehabilitation Hospital, AvonNeutrophils/100 WBC Auto (Bld)Ordered By: Sena Izquierdo on 64-51-3631Mossmqpeckk/100 WBC (Bld)79.5 %High43.0-75.0[facility] CenterNo Panel InformationOrdered By: Sena Timbo on 91-32-1215Pdyrxdkfohv # (Auto)0.7 10 3/uL0.0-0.7FSelect Medical Cleveland Clinic Rehabilitation Hospital, AvonImmature Granulocyte # (Auto)0.31 10 3/uLHigh0.00-0.03 [facility] CenterPlatelet mean volume Auto (Bld) [Entitic vol] Ordered By: Sena Timbo on 51-90-4976Ytiujlmc mean volume (Bld) [Entitic vol]9.9 fL9.5-13.5FSelect Medical Cleveland Clinic Rehabilitation Hospital, AvonPlatelets Auto (Bld) [#/Vol]Ordered By: Sena Izquierdo on 70-83-4415Nshimlccv (Bld) [#/Vol]547 10 3/mRHymu589-029 [facility] CenterRBC Auto (Bld) [#/Vol]Ordered By: Sena Izquierdo on 76-67-5493DYH (Bld) [#/Vol]3.82 10 6/uLLow4.70-6.10[facility] Hospitalerum or plasma albumin/globulin mass ratioOrdered By: Sena Izquierdo on 94-45-6460Qoisusl/Globulin [Mass ratio]0.3 {ratio}[facility] Hospitalerum or plasma anion gap determinationOrdered By: Sena Izquierdo on 12-42-4751Ahfik gap [Moles/Vol]11.9 mmol/LFSelect Medical Cleveland Clinic Rehabilitation [facility], [place] Glomerular filtration rate (GFR) estimation in non- AmericanOrdered By: María Santana on 72-66-5548KDF/1.73 sq M.predicted among non-blacks MDRD (S/P/Bld) [Vol rate/Area]23 mL/min/{1.73_m2}Low>=60 mL/min/1.73m 2FSelect Medical Cleveland Clinic Rehabilitation Hospital, AvonLaboratory - Chemistry and Chemistry - challengeOrdered By: María Santana on 35-84-5130Alokvzb [Mass/Vol]9.0 mg/dL8.5-10.1FSelect Medical Cleveland Clinic Rehabilitation Hospital, AvonChloride [Moles/Vol]101 mmol/I98-169TobudaculSouthview Medical CenterCO2 [Moles/Vol]24.8 mmol/L21.0-32.0[facility] CenterCreatinine [Mass/Vol]2.86 mg/dLHigh0.70-1.30[facility] CenterGFR/1.73 sq M.predicted MDRD (S/P/Bld) [Vol rate/Area]28 mL/min/{1.73_m2} Low>=60 mL/min/1.[address]m [address] [place], [place] [address]Glucose [Mass/Vol]104 mg/jY68-711LickjfbppSouthview Medical CenterPotassium [Moles/Vol]3.3 mmol/LLow 3.5-5.1FRegency Hospital Cleveland Westodium [Moles/Vol]138 mmol/Z967-737 [facility] CenterUrea nitrogen [Mass/Vol]39.0 mg/dLHigh7.0-18.0 [facility] CenterUrea nitrogen/Creatinine [Mass ratio]13.6 mg/mg [facility] Hospitalerum or plasma anion gap determinationOrdered By: María Santana on 53-77-3651Hrarp gap [Moles/Vol]15.5 mmol/LFSelect Medical Cleveland Clinic Rehabilitation Hospital, AvonGlomerular filtration rate (GFR) estimation in non- AmericanOrdered By: María Santana on 29-15-8859IRM/1.73 sq M.predicted among non-blacks MDRD (S/P/Bld) [Vol rate/Area]22 mL/min/{1.73_m2}Low>=60 mL/min/1.73m 2FSelect Medical Cleveland Clinic Rehabilitation Hospital, AvonLaboratory - Chemistry and Chemistry - challengeOrdered By: María Santana on 42-73-8154Xydpwqe [Mass/Vol] 8.6 mg/dL8.5-10.1FSelect Medical Cleveland Clinic Rehabilitation Hospital, AvonChloride [Moles/Vol]100 mmol/L 98-107[facility] CenterCO2 [Moles/Vol]23.4 mmol/L21.0-32.0 [facility] CenterCreatinine [Mass/Vol]3.04 mg/dLHigh0.70-1.30 [facility] CenterGFR/1.73 sq M.predicted MDRD (S/P/Bld) [Vol rate/Area]27 mL/min/{1.73_m2}Low>=60 mL/min/1.73m 2FSelect Medical Cleveland Clinic Rehabilitation Hospital, AvonGlucose [Mass/Vol]123 mg/qMFumk62-945NpgiaoqznSouthview Medical Center Potassium [Moles/Vol]3.3 mmol/LLow3.5-5.1FRegency Hospital Cleveland Westodium [Moles/Vol]136 mmol/A107-126IlkwyldubSouthview Medical CenterUrea nitrogen [Mass/Vol]40.0 mg/dLHigh7.0-18.0[facility] CenterUrea nitrogen/Creatinine [Mass ratio]13.2 mg/mgOhioHealth Hardin Memorial Hospitalerum or plasma anion gap determinationOrdered By: María Santana on 03-03-3685Aataj gap [Moles/Vol]15.9 mmol/LFSelect Medical Cleveland Clinic Rehabilitation Hospital, AvonErythrocyte distribution width Auto (RBC) [Ratio]Ordered By: María Santana on 10-25-2024 Erythrocyte distribution width (RBC) [Ratio]13.7 %11.0-15.0[facility] Medical CenterGlomerular filtration rate (GFR) estimation in non- AmericanOrdered By: María Santana on 32-98-3641WLZ/1.73 sq M.predicted among non-blacks MDRD (S/P/Bld) [Vol rate/Area]21 mL/min/{1.73_m2}Low>=60 mL/min/1.[address]m [address] [place], [place] [address]Hematocrit Auto (Bld) [Volume fraction]Ordered By: María Santana on 08-75-5105Ergqgpwcmq (Bld) [Volume fraction]31.3 %Low 42.0-54.0[facility] CenterHemoglobin [Mass/volume] in Blood Ordered By: María Santana on 06-98-0724Zjpmhlvzoj (Bld) [Mass/Vol]10.4 g/dLLow 14.0-18.0[facility] CenterLaboratory - Chemistry and Chemistry - challengeOrdered By: María Santana on 14-57-9619Nbveyry [Mass/Vol]8.6 mg/dL 8.5-10.1FSelect Medical Cleveland Clinic Rehabilitation Hospital, AvonChloride [Moles/Vol]100 mmol/L98-107 [facility] CenterCO2 [Moles/Vol]22.3 mmol/L21.0-32.0[facility] CenterCreatinine [Mass/Vol]3.17 mg/dLHigh0.70-1.30[facility] CenterGFR/1.73 sq M.predicted MDRD (S/P/Bld) [Vol rate/Area]25 mL/min/{1.73_m2}Low>=60 mL/min/1.[address]m [address] [place], [place] [address]Glucose [Mass/Vol]111 mg/cVXzhj45-413KqbopzuugSouthview Medical CenterPotassium [Moles/Vol]3.3 mmol/LLow3.5-5.1FRegency Hospital Cleveland Westodium [Moles/Vol]135 mmol/GSku380-917WgwogpvxeSouthview Medical CenterUrea nitrogen [Mass/Vol]42.0 mg/dLHigh7.0-18.0[facility] CenterUrea nitrogen/Creatinine [Mass ratio]13.2 mg/mgSouthview Medical Center Leukocytes [#/volume] corrected for nucleated erythrocytes in Blood by Automated counOrdered By: María Santana on 13-46-0384ZWG corrected for nucl RBC Auto (Bld) [#/Vol]15.7 10 3/uLHigh4.0-11.0[facility] Auto (RBC) [Entitic mass]Ordered By: María Santana on 82-21-1568YVB (RBC) [Entitic mass]28.7 pg25.9-34.0[facility] Auto (RBC) [Mass/Vol] Ordered By: María Santana on 95-99-7190WWUN (RBC) [Mass/Vol]33.2 g/dL29.9-35.2 [facility] CenterMCV Auto (RBC) [Entitic vol]Ordered By: María Santana on 60-28-3626MRM (RBC) [Entitic vol]86.2 fL80.0-94.0[facility] CenterNo Panel InformationOrdered By: María Santana on 09-31-2371M- Reactive Protein, Purolumymujw88.92 mg/dLHigh<=0.50[facility] CenterPlatelet mean volume Auto (Bld) [Entitic vol]Ordered By: María Santana on 74-77-3239Iuxqqerq mean volume (Bld) [Entitic vol]10.5 fL9.5-13.5FSelect Medical Cleveland Clinic Rehabilitation Hospital, AvonPlatelets Auto (Bld) [#/Vol]Ordered By: María Santana on 95-75-8948Rgiuqlckh (Bld) [#/Vol]279 10 3/yI522-994XxsgqlxcwSouthview Medical CenterRBC Auto (Bld) [#/Vol]Ordered By: María Santana on 33-10-1680PFE (Bld) [#/Vol]3.63 10 6/uLLow4.70-6.10[facility] Hospitalerum or plasma anion gap determinationOrdered By: María Santana on 00-57-5872Njqqb gap [Moles/Vol]16.0 mmol/LFSelect Medical Cleveland Clinic Rehabilitation Hospital, AvonBasophils Auto (Bld) [#/Vol]Ordered By: María Santana on 90-18-4282Cmvoyrxom (Bld) [#/Vol]0.1 10 3/uL 0.0-0.1FSelect Medical Cleveland Clinic Rehabilitation Hospital, AvonBasophils/100 WBC Auto (Bld)Ordered By: María Santana on 61-50-0381Wojgbcweg/100 WBC (Bld)0.4 %0.2-2.0[facility] CenterEosinophils/100 WBC Auto (Bld)Ordered By: María Santana on 83-58-7450Vlwvxbmgypa/100 WBC (Bld)0.4 %Low0.9-7.0[facility] CenterErythrocyte distribution width Auto (RBC) [Ratio]Ordered By: María Santana on 01-17-9287Dhejvtbhsac distribution width (RBC) [Ratio]13.5 %11.0-15.0 [facility] CenterGlomerular filtration rate (GFR) estimation in non- AmericanOrdered By: María Santana on 12-01-3129DDA/1.73 sq M.predicted among non-blacks MDRD (S/P/Bld) [Vol rate/Area]19 mL/min/{1.73_m2} Low>=60 mL/min/1.73m 2FSelect Medical Cleveland Clinic Rehabilitation Hospital, AvonHematocrit Auto (Bld) [Volume fraction]Ordered By: María Santana on 20-54-0560Eckdhojhgu (Bld) [Volume fraction]34.5 %Low42.0-54.0[facility] CenterHemoglobin [Mass/volume] in BloodOrdered By: María Santana on 25-73-8582Zcdflosejh (Bld) [Mass/Vol]11.3 g/dLLow14.0-18.0[facility] CenterLaboratory - Chemistry and Chemistry - challengeOrdered By: María Santana on 10-24-2024 Calcium [Mass/Vol]8.7 mg/dL8.5-10.1FSelect Medical Cleveland Clinic Rehabilitation Hospital, AvonChloride [Moles/Vol]100 mmol/I52-202UqqyfdwlkSouthview Medical CenterCO2 [Moles/Vol]23.7 mmol/L21.0-32.0[facility] CenterCreatinine [Mass/Vol]3.38 mg/dL High0.70-1.30[facility] CenterGFR/1.73 sq M.predicted MDRD (S/P/Bld) [Vol rate/Area]23 mL/min/{1.73_m2}Low>=60 mL/min/1.73m 2FSelect Medical Cleveland Clinic Rehabilitation Hospital, AvonGlucose [Mass/Vol]106 mg/vS90-312XkzzjbixfSouthview Medical CenterPotassium [Moles/Vol]3.4 mmol/LLow3.5-5.1FRegency Hospital Cleveland Westodium [Moles/Vol]135 mmol/NLza198-190YecrerozpSouthview Medical CenterUrea nitrogen [Mass/Vol]45.0 mg/dLHigh7.0-18.0[facility] CenterUrea nitrogen/Creatinine [Mass ratio]13.3 mg/mgSouthview Medical CenterLaboratory - Hematology and Cell countsOrdered By: María Santana on 50-39-9273Qvdnrtcf granulocytes/100 WBC (Bld)0.6 %High0.0-0.5FSelect Medical Cleveland Clinic Rehabilitation Hospital, AvonLeukocytes [#/volume] corrected for nucleated erythrocytes in Blood by Automated counOrdered By: María Santana on 01-20-2186NMP corrected for nucl RBC Auto (Bld) [#/Vol]16.7 10 3/uLHigh4.0-11.0[facility] CenterLymphocytes Auto (Bld) [#/Vol]Ordered By: María Santana on 10-24-2024 Lymphocytes (Bld) [#/Vol]1.6 10 3/uL1.2-3.8[facility] Lymphocytes/100 WBC Auto (Bld)Ordered By: María Santana on 10-24-2024 Lymphocytes/100 WBC (Bld)9.5 %Low20.5-60.0[facility] CenterMCH Auto (RBC) [Entitic mass]Ordered By: María Santana on 99-81-8986FIS (RBC) [Entitic mass]28.6 pg25.9-34.0[facility] Medical CenterMCHC Auto (RBC) [Mass/Vol]Ordered By: María Santana on 91-54-4932EHTH (RBC) [Mass/Vol]32.8 g/dL 29.9-35.2FSelect Medical Cleveland Clinic Rehabilitation Hospital, AvonMCV Auto (RBC) [Entitic vol]Ordered By: María Santana on 17-89-3132NGJ (RBC) [Entitic vol]87.3 fL80.0-94.0[facility] CenterMonocytes Auto (Bld) [#/Vol]Ordered By: María Santana on 84-13-9025Wdhhvykbe (Bld) [#/Vol]0.8 10 3/uL0.3-0.8[facility] CenterMonocytes/100 WBC Auto (Bld)Ordered By: María Santana on 10-24-2024 Monocytes/100 WBC (Bld)4.9 %1.7-12.0[facility] CenterNeutrophils Auto (Bld) [#/Vol]Ordered By: María Santana on 74-99-3835Utwxxxdrkqe (Bld) [#/Vol]14.1 10 3/uLHigh1.4-6.5FSelect Medical Cleveland Clinic Rehabilitation Hospital, AvonNeutrophils/100 WBC Auto (Bld)Ordered By: María Santana on 63-68-8460Jjwhumgfmrx/100 WBC (Bld) 84.2 %High43.0-75.0[facility] CenterNo Panel InformationOrdered By: María Santana on 54-95-0674Avqigpyjqks # (Auto)0.1 10 3/uL0.0-0.7FSelect Medical Cleveland Clinic Rehabilitation Hospital, AvonImmature Granulocyte # (Auto)0.10 10 3/uLHigh0.00-0.03 [facility] CenterPlatelet mean volume Auto (Bld) [Entitic vol] Ordered By: María Santana on 91-58-2628Cuztllot mean volume (Bld) [Entitic vol] 10.8 fL9.5-13.5FSelect Medical Cleveland Clinic Rehabilitation Hospital, AvonPlatelets Auto (Bld) [#/Vol] Ordered By: María Santana on 66-10-2217Agctvsmsb (Bld) [#/Vol]257 10 3/hG115-737 [facility] CenterRBC Auto (Bld) [#/Vol]Ordered By: María Santana on 46-96-6786BHC (Bld) [#/Vol]3.95 10 6/uLLow4.70-6.10[facility]in Memorial Hospitalerum or plasma anion gap determinationOrdered By: María Santana on 45-91-9943Qijhr gap [Moles/Vol]14.7 mmol/LFSelect Medical Cleveland Clinic Rehabilitation Hospital, Avon Activated partial thromboplastin time (aPTT) in platelet poor plasma by coagulation aOrdered By: Randi Marker on 67-63-6596sBFN Coag (PPP) [Time]35.6 s22.3-36.2FSelect Medical Cleveland Clinic Rehabilitation Hospital, AvonBasophils Auto (Bld) [#/Vol]Ordered By: Randi Marker on 94-53-1990Scmvdbaym (Bld) [#/Vol]0.1 10 3/uL0.0-0.1 [facility] CenterBasophils/100 WBC Auto (Bld)Ordered By: Randi Marker on 97-87-6411Ymssiwvao/100 WBC (Bld)0.2 %0.2-2.0[facility] CenterEosinophils/100 WBC Auto (Bld)Ordered By: Randi Marker on 89-74-3591Wpmednpuaqn/100 WBC (Bld)0.8 %Low0.9-7.0[facility] CenterErythrocyte distribution width Auto (RBC) [Ratio]Ordered By: Randi Marker on 14-60-1351Cpbcxsyvpgm distribution width (RBC) [Ratio]13.6 %11.0-15.0 [facility] CenterFibrin D-dimer [Presence] in Platelet poor plasma by Latex agglutinationOrdered By: Randi Marker on 20-59-7666Jmevzp D- dimer LA Ql (PPP)1.39 mg/L FEUCritically high<=0.59[facility] Medical CenterComment on above:RESULTS CALLED TO WALTER Martinez (Baker), RN @BY Jad Keane MLT at 0119Increases in D-Dimer concentration observed withthromboembolic events can be variable due to localization,size, and age of t he thrombus. Therefore, a thromboembolicevent cannot be diagnosed with certainty on the basis of thereference range. D-Dimers may also be elevated for a varietyof disorders including advanced age, , coronarydisease, cancer, liver disease, infection, inflammation,hematoma, DIC, trauma, post-surgery, diabetes, thrombolyticor anticoagulant therapy, stress, and generalizedhospitalization.Globulin Calc (S) [Mass/Vol]Ordered By: Randi Marker on 18-63-5276Inskpkku (S) [Mass/Vol]5.4 g/dLSouthview Medical CenterGlomerular filtration rate (GFR) estimation in non- AmericanOrdered By: Randi Marker on 99-40-7353DZZ/1.73 sq M.predicted among non-blacks MDRD (S/P/Bld) [Vol rate/Area]17 mL/min/{1.73_m2}Low>=60 mL/min/1.73m 2FSelect Medical Cleveland Clinic Rehabilitation Hospital, AvonHematocrit Auto (Bld) [Volume fraction]Ordered By: Randi Marker on 85-60-7512Mpycgqbdgr (Bld) [Volume fraction]35.5 %Low42.0-54.0 [facility] CenterHemoglobin [Mass/volume] in BloodOrdered By: Randi Marker on 01-06-2262Edoxoaishe (Bld) [Mass/Vol]12.0 g/dLLow14.0-18.0 [facility] CenterINR in Platelet poor plasma by Coagulation assayOrdered By: Randi Marker on 27-70-1561HMP Coag (PPP) [Relative time]1.07 {INR}[facility] CenterComment on above:DESIRED INR:2.0-3.0 CONDITIONS NOT LISTED BELOW2.5-3.5 FOR PROSTHETIC HEART VALVE REPLACEMENT2.5-3.5 RECURRENT THROMBOSISLaboratory - Chemistry and Chemistry - challengeOrdered By: María Quintanadanielasif on 29-29-4386Wpudywgqk Ql (U)NegativeNEGATIVESouthview Medical CenterGlucose (U) [Mass/Vol]NegativeNEGATIVESouthview Medical CenterKetones Ql (U)NegativeNEGATIVESouthview Medical CenterpH (U)5.5 [pH]5.0-9.0[facility] Memorial Hospitalpecific gravity (U) [Rel density] 1.0251.005-1.025[facility] Medical CenterUrobilinogen Qn (U)1.0 {Abiola'U}/dL0.2-1.0[facility] CenterLaboratory - Chemistry and Chemistry - challengeOrdered By: Randi Garcia on 56-16-7804Bhelquj [Mass/Vol] 2.4 g/dLLow3.4-5.0[facility] CenterALP [Catalytic activity/Vol] 89 U/O64-823AgcxjbggdSouthview Medical CenterALT [Catalytic activity/Vol]27 U/L 16-63[facility] CenterAST [Catalytic activity/Vol]24 U/L15-37 [facility] CenterBilirubin [Mass/Vol]0.4 mg/dL0.2-1.0[facility] CenterCalcium [Mass/Vol]8.5 mg/dL8.5-10.1FSelect Medical Cleveland Clinic Rehabilitation Hospital, AvonChloride [Moles/Vol]97 mmol/SWdz58-064ZykxyqsbxSouthview Medical CenterCO2 [Moles/Vol]25.1 mmol/L21.0-32.0[facility] Creatinine [Mass/Vol]3.79 mg/dLHigh0.70-1.30[facility] GFR/1.73 sq M.predicted MDRD (S/P/Bld) [Vol rate/Area]21 mL/min/{1.73_m2}Low>=60 mL/min/1.73m 2FSelect Medical Cleveland Clinic Rehabilitation Hospital, AvonGlucose [Mass/Vol]119 mg/dLHigh 74-106[facility] CenterLactate [Moles/Vol]1.1 mmol/L0.4-2.0 [facility] CenterPotassium [Moles/Vol]3.2 mmol/LLow3.5-5.1 [facility] CenterProtein [Mass/Vol]7.8 g/dL6.4-8.2FRegency Hospital Cleveland Westodium [Moles/Vol]132 mmol/PDas968-881QuxhrhvthSouthview Medical CenterUrea nitrogen [Mass/Vol]46.0 mg/dLHigh7.0-18.0[facility] CenterUrea nitrogen/Creatinine [Mass ratio]12.1 mg/mgSouthview Medical CenterLaboratory - Hematology and Cell countsOrdered By: Randi Marker on 04-39-4647Jdwoyavc granulocytes/100 WBC (Bld)0.5 %0.0-0.5FSelect Medical Cleveland Clinic Rehabilitation Hospital, AvonLaboratory - Specimen informationOrdered By: María Santana on 94-38-1955Xfezhfpwui (U)SL CLOUDYCLEARFSelect Medical Cleveland Clinic Rehabilitation Hospital, AvonColor (U) LT. YELLOWYELLOWSouthview Medical CenterLaboratory - UrinalysisOrdered By: María Santana on 97-95-2403Inxpbmlze sediment LM Ql (Urine sed)[facility] Doctors HospitalLeukocyte esterase Test strip Ql (U)NegativeNEGATIVE [facility] CenterMucus Ql (Urine sed)NONE SEENNONE [facility] HospitalNitrite Ql (U)NegativeNEGATIVESouthview Medical CenterProtein Ql (U)100 mg/dLAbnormalNEG/TRACESouthview Medical Center Leukocytes [#/volume] corrected for nucleated erythrocytes in Blood by Automated counOrdered By: Randi Marker on 13-90-7674CUO corrected for nucl RBC Auto (Bld) [#/Vol]21.5 10 3/uLHigh4.0-11.0[facility] Lymphocytes Auto (Bld) [#/Vol]Ordered By: Randi Marker on 10-23-2024 Lymphocytes (Bld) [#/Vol]1.6 10 3/uL1.2-3.8[facility] Lymphocytes/100 WBC Auto (Bld)Ordered By: Randi Marker on 10-23-2024 Lymphocytes/100 WBC (Bld)7.6 %Low20.5-60.0[facility] CenterMCH Auto (RBC) [Entitic mass]Ordered By: Randi Marker on 45-38-0316PFF (RBC) [Entitic mass]29.3 pg25.9-34.0[facility] CenterMCHC Auto (RBC) [Mass/Vol]Ordered By: Randi Marker on 98-58-5096IOVD (RBC) [Mass/Vol]33.8 g/dL 29.9-35.2FSelect Medical Cleveland Clinic Rehabilitation Hospital, AvonMCV Auto (RBC) [Entitic vol]Ordered By: Randi Marker on 29-67-7519NOT (RBC) [Entitic vol]86.6 fL80.0-94.0[facility] CenterMonocytes Auto (Bld) [#/Vol]Ordered By: Randi Marker on 19-51-9493Ekkmhfxho (Bld) [#/Vol]0.7 10 3/uL0.3-0.8[facility] CenterMonocytes/100 WBC Auto (Bld)Ordered By: Randi Marker on 10-23-2024 Monocytes/100 WBC (Bld)3.3 %1.7-12.0[facility] CenterNeutrophils Auto (Bld) [#/Vol]Ordered By: Randi Marker on 09-69-3024Qdikttphafg (Bld) [#/Vol]18.9 10 3/uLHigh1.4-6.5FSelect Medical Cleveland Clinic Rehabilitation Hospital, AvonNeutrophils/100 WBC Auto (Bld)Ordered By: Randi Marker on 01-40-3795Fjjivsnjxwn/100 WBC (Bld) 87.6 %High43.0-75.0[facility] CenterNo Panel InformationOrdered By: María Santana on 84-41-5036Xoqbs BacteriaTRACE #/HPFAbnormalNONE SEEN [facility] CenterUrine Culture ReflexedYES-FRMary Rutan HospitalUrine Occult BloodLARGEAbnormalNEGATIVESouthview Medical CenterUrine Other CastsNONE SEEN #/LPFNONE SEENSouthview Medical CenterUrine Other CrystalsSeen #/HPFAbnormalNone SeenSouthview Medical CenterUrine RBC5-10 #/HPFAbnormal0-2FSelect Medical Cleveland Clinic Rehabilitation [facility], Avon Urine Squamous Epithelial CellsFEW #/LPFAbnormalNONE/RARESouthview Medical CenterUrine WBC2-5 #/HPFAbnormalNONE SEENSouthview Medical CenterNo Panel InformationOrdered By: Randi Marker on 08-76-5291Yaxhakcorpi # (Auto)0.2 10 3/uL0.0-0.7FSelect Medical Cleveland Clinic Rehabilitation Hospital, AvonImmature Granulocyte # (Auto)0.10 10 3/uLHigh0.00-0.03[facility] CenterTroponin I High Cjwrmbdsheh96.8 pg/mL4.0-76.1FSelect Medical Cleveland Clinic Rehabilitation Hospital, AvonComment on above: CUT-OFF POINTS HAVE BEEN ESTABLISHED BASED ON THE FOURTHUNIVERSAL DEFINITION OF MYOCARDIAL INFARCTION. THE UPPERREFERENCE LIMIT (URL) OF TROPONIN, DEFINED THE 99THPERCENTILE OF cTnI DISTRIBUTION IN A REFERENCE POPULATION,HAS BEEN CONFIRMED THE DECISION THRESHOLD FOR MIDIAGNOSIS.99TH PERCENTILE = 76.2 PG/MLNOTE: HIGH-SENSITIVITY TROPONIN ASSAY IS NOT INTENDED TO BEUSED IN ISOLATION BUT SHOULD BE INTERPRETED IN CONJUNCTIONWITH OTHER DIAGNOSTIC AND CLINICAL INFORMATION.Platelet mean volume Auto (Bld) [Entitic vol]Ordered By: Randi Marker on 59-80-0246Cuxcqyer mean volume (Bld) [Entitic vol]10.3 fL 9.5-13.5FSelect Medical Cleveland Clinic Rehabilitation Hospital, AvonPlatelets Auto (Bld) [#/Vol]Ordered By: Randi Marker on 41-22-7144Tyjctnnlf (Bld) [#/Vol]257 10 3/wR405-188YbodkkrxaSouthview Medical CenterProthrombin time (PT)Ordered By: Randi Marker on 04-84-9090WI Coag (PPP) [Time]11.3 s9.0-11.6FSelect Medical Cleveland Clinic Rehabilitation Hospital, AvonRBC Auto (Bld) [#/Vol]Ordered By: Randi Marker on 09-26-2756CHY (Bld) [#/Vol]4.10 10 6/uLLow4.70-6.10Ohio[facility]in Memorial Hospitalerum or plasma albumin/globulin mass ratioOrdered By: Randi Marker on 10-23-2024 Albumin/Globulin [Mass ratio]0.4 {ratio}[facility] Memorial Hospitalerum or plasma anion gap determinationOrdered By: Randi Marker on 64-60-3435Eauwz gap [Moles/Vol]13.1 mmol/LFSelect Medical Cleveland Clinic Rehabilitation Hospital, AvonUrine Cultureon 12-02-0552Ybvxwekg identified Cx Nom (U)No Growth 2 Days PERFORMED BY: [place] [address] PATHOLOGIST NURSE COMPANION SHLOMO FIGUEROA M.D.NormalThe Formerly [facility] Physician GroupComment on above: Performed By: #### [facility] #### [place] [address] USAUrine cultureOrdered By: María Santana on 10-23-2024 Bacteria identified Cx Nom (U)No Growth 2 DaysSouthview Medical Center US renal doppleron 11-69-7224HY renal dopplerKETTERING [facility] Main [place] [address] [place] [address] Ultrasound Report Signed Patient: Suresh Vallejo MR#: [id number] 0 : 1975 Acct:[id number] Age/Sex: 49 / M ADM Date: 08/10/24 Loc: Room: Type: [facility] Attending Dr: Daniel Gloria MD Ordering Provider: Daniel Gloria MD Date of Service: 08/10/24 US/US renal doppler: R/O Renal artery stenosis Copies to: Daniel Gloria MD Renal artery duplex examination performed using B-mode, color flow and spectral Doppler assessment (CPT: 14858) INDICATION: FINDINGS: Aorta: PSV 54.2 cm/s Right [...] Hastings MD,FACS,FSVS 08/11/2024 12:33 PM Dictation Location: [place] [address] Tech: Elis Sotelo Transcribed By: PWS 08/11/24 1233 Dictated By: Edvin Hastings MD 08/11/24 1232 Signed By: 08/11/24 1233[facility] Physician [facility] HospitalECH echo transthoracicon 54-39-5814MLJ echo transthoracicKETTERING HEALTH MAIN CAMPUS Main [place] [address] [place] [address] Echocardiogram Signed Patient: Suresh Vallejo MR#: [id number] 0 : 1975 Acct:[id number] Age/Sex: 49 / M ADM Date: 08/10/24 Loc: Room: Type: [facility] Attending Dr: Daniel Gloria MD Ordering Provider: Daniel Gloria MD Date of Service: 08/10/2411/27/847 ECH/ECH echo transthoracic: I10 - Essential (primary) hypertension Copies to: MD Brian English MD, [facility] Weight: 380 lb Performed By: ALICIA Amador [...] V1 max: 105.7 cm/sec (0.7-1.7m/s)MV E max marquita: 96.0 cm/sec(0.8-1.3m/s) MV A max marquita: 93.1 cm/sec(0.0-0.0m/s) MV E/A: 1.0 (<1.5) MMode/2D Measurements Calculations RVDd: 3.7 cm FS: 35.8 % Ao root area: LVOT diam: 2.8 cm TAPSE: 3.6 cm EDV(Teich): 12.1 cm2 LVOT area: 6.0 cm2 RV S Marquita: 133.6 ml 19.4 cm/sec ESV(Teich): 46.8 ml [...] max: E/E' lat: 11.8 MV P1/2t max marquita: 0.31 sec 98.3 cm/sec E/E' med: 10.1 92.9 cm/sec MV max PG: MV P1/2t: 87.4 msec 33.0 mmHg MV V2 mean: MVA(P1/2t): 2.5 cm2 60.2 cm/sec MV dec slope: MV mean P.4 cm/sec2 1.7 mmHg MV V2 VTI: 41.3 cm MVA(VTI): 3.9 cm2 __ Ao V2 max: LV V1 max PG: MR max marquita: RAP systole: 5.0 mmHg 182.3 cm/sec 4.5 mmHg 288.1 cm/sec Ao max PG: LV V1 mean PG: MR max P.3 mmHg 2.5 mmHg 33.2 mmHg Ao mean PG: LV V1 mean: 6.0 mmHg 74.8 cm/sec Ao V2 mean: LV V1 VTI: 113.8 cm/sec 27.2 cm Ao V2 VTI: 45.7 cm MARGAUX(I,D): 3.6 cm2 MARGAUX(V,D): 3.5 cm2 Transcribed By: GENET Performed At: 08/10/24937 Signed By: Brian Ochoa MD, [facility] 08/10/[address] [place] [address] Physician GivsjI4M with Estimated Average Gluon 95-86-0266Soiivam [Mass/Vol]128 mg/dL NormalHca Florida Fort Walton-Destin Hospital Physician GroupComment on above:Result Comment: PERFORMED BY: [place] [address] PATHOLOGIST NURSE COMPANION SEBASTIAN SIMMS M.D.Performed By: #### RENACT, UMETRA, ALD #### [facility] , #### A1C WTH eA, BMP #### [facility] [address] [place] [address] USAAldosteroneon 15-07-2850Eggupxovhqu2.6 ng/dLNormal0.0-30.0 The [facility] Physician GroupComment on above:Result Comment: This test was developed and its performance characteristics determined by [facility]. It has not been cleared or approved by the Food and Drug Administration. Performed at: [address] [id number] [employer]: John Mandel MD, Phone: [phone] PERFORMED BY: [place] [address] PATHOLOGIST NURSE COMPANION SEBASTIAN SIMMS M.D.Performed By: #### RENACT, UMETRA, ALD #### [facility] , #### A1C WTH eA, BMP #### [facility] [address] [place], [place] [address] USABasic Metabolic Panelon 73-12-7905Ihffmhnnf GFR29.915 mL/MinNormalThe [facility] Physician GroupComment on above:Performed By: #### RENACT, UMETRA, ALD #### [facility] , #### A1C WTH eA, BMP #### [facility] [address] [place] [address] USABlood estimated average glucose determination by estimation from glycated hemoglobinOrdered By: Daniel Gloria on 07-13-2024 Average glucose Estimated from glycated hemoglobin (Bld) [Mass/Vol]Glucose mean value [Mass/volume] in Blood Estimated from glycated hemoglobinSouthview Medical CenterAverage glucose Estimated from glycated hemoglobin (Bld) [Mass/Vol]128 mg/dLSouthview Medical CenterCalcium [Mass/volume] in Serum or PlasmaOrdered By: Daniel Gloria on 68-16-5159Eaymgew [Mass/Vol]Calcium [Mass/volume] in Serum or Plasma8.6-10.3FSelect Medical Cleveland Clinic Rehabilitation Hospital, [facility]on Calcium [Mass/Vol]8.8 mg/dLNormal8.6-10.3FSelect Medical Cleveland Clinic Rehabilitation Hospital, [facility]on Comment on above:Result Comment: PERFORMED BY: [facility] [address] [place] [address] PATHOLOGIST NURSE COMPANION SEBASTIAN SIMMS M.D.Performed By: #### SHANA SORIANO, ALD #### [facility] , #### A1C WTH eA, BMP #### [facility] [address] [place] [address] USACarbon dioxide, total [Moles/volume] in Serum or Plasma Ordered By: Daniel Gloria on 82-43-2089SF0 [Moles/Vol]Carbon dioxide, total [Moles/volume] in Serum or Aoojzz25.0-31.0[facility] Medical CenterCO2 [Moles/Vol]27.0 mmol/QFozwml80.0-31.0[facility] CenterComment on above:Performed By: #### SHANA SORIANO, ALD #### [facility] , #### A1C WTH eA, BMP #### [facility] [address] [place], [place] [address] USAChloride [Moles/volume] in Serum or PlasmaOrdered By: Daniel Gloria on 06-89-6258Wzrpxmkw [Moles/Vol]Chloride [Moles/volume] in Serum or Kbezvz79-609WckkcjgwfSouthview Medical CenterChloride [Moles/Vol]103 mmol/L Gyrgrf25-199Ejmrffk[address] [place], [place] [address]Comment on above:Performed By: #### RENACTKATHYETRA, ALD #### [facility] , #### A1C WTH eA, BMP #### [facility] [address] [place], [place] [address] USACreatinine [Mass/volume] in Serum or PlasmaOrdered By: Daniel Gloria on 67-35-6520Cmydvgmpwc [Mass/Vol]Creatinine [Mass/volume] in Serum or PlasmaHigh0.70-1.30[facility] Medical CenterCreatinine [Mass/Vol]2.53 mg/dLHigh0.70-1.30[facility] Medical CenterComment on above:Performed By: #### SHANA SORIANO, ALD #### [facility] , #### A1C WT eA, BMP #### [facility] [address] [place] [address] USAGlucose [Mass/volume] in Serum or PlasmaOrdered By: Daniel Gloria on 14-99-9990Plkcswb [Mass/Vol]Glucose [Mass/volume] in Serum or Plasma Jenc97-942ElibdhmjvSouthview Medical CenterComment on above:ADA recommended reference rangeRandom Glucose Reference Range is dependent on time and content of last meal. Glucose of more than 200 mg/dL in a nonstressed, ambulatory subject supports the diagnosisof Diabetes Mellitus.Glucose [Mass/Vol]119 mg/dL Pmrg79-788Somaszroc80 Medina StreetComment on above:ADA recommended reference rangeRandom Glucose Reference Range is dependent on time and content of last meal. Glucose of more than 200 mg/dL in a nonstressed, ambulatory subject supports the diagnosisof Diabetes Mellitus.Result Comment: Random Glucose Reference Range is dependent on time and content of last meal. Glucose of more than 200 mg/dL in a nonstressed, ambulatory subject supports the diagnosis of Diabetes Mellitus. ADA recommended reference rangePerformed By: #### SHANA SORIANO, ALD #### [facility] , #### A1C WTH eA, BMP #### [facility] [address] [place] [id number] USAHemoglobin A1c/Hemoglobin.total in BloodOrdered By: Daniel Gloria on 40-91-0622ZyX7n (Bld) [Mass fraction]Hemoglobin A1c percentageHigh 4.3-5.6FSelect Medical Cleveland Clinic Rehabilitation Hospital, AvonComment on above:Increased risk for diabetes: 5.7 - 6.4diabetes: >6.4glycemic control for adults with diabetes: &l t;7.0HbA1c (Bld) [Mass fraction]6.1 %High4.3-5.6FSelect Medical Cleveland Clinic Rehabilitation Hospital, AvonComment on above:Increased risk for diabetes: 5.7 - 6.4diabetes: >6.4glycemic control for adults with diabetes: <7.0Result Comment: Increased risk for diabetes: 5.7 - 6.4 diabetes: >6.4 glycemic control for adults with diabetes: <7.0Performed By: #### RENACT, UMETRA, ALD #### [facility] , #### A1C WTH eA, BMP #### [facility] [address] [place] [id number] USAMetanephrine Urine Randomon 51-56-9982Pahateutkg, Random Ur73.3 mg/dLNormalNot Estab.The [facility] Physician GroupComment on above: Performed By: #### RENACT, UMETRA, ALD #### [facility] , #### A1C WTH eA, BMP #### [facility] [address] [place] [id number] USAMetanephrine Random Suuzs50YmljxaTornxjmfdMic [facility] Physician [facility] General HospitalComment on above:Result Comment: This test was developed and its performance characteristics determined by [facility]. It has not been cleared or approved by the Food and Drug Administration.Performed By: #### RENACT, UMETRA, ALD #### [facility] , #### A1C WTH eA, BMP #### [facility] [address] [place] [id number] USAMetanephrine/Creatinine Ratio0.7Beugbg4.0-1.0The [facility] Physician Wayne General HospitalComment on above:Result Comment: Result Units: ug/mg Creat Performed at: [address] [id number] [employer]: John Mandel MD, Phone: [phone] By: #### RENACT, UMETRA, ALD #### [facility] , #### A1C WTH eA, BMP #### [facility] [address] [place] [address] USANormetanephrine Random Wvxzr084OzyjzrRzpjywyawXao [facility] Physician GroupComment on above:Result Comment: This test was developed and its performance characteristics determined by [facility]. It has not been cleared or approved by the Food and Drug Administration. PERFORMED BY: [facility] [address] [place] [id number] PATHOLOGIST NURSE COMPANION SEBASTIAN SIMMS M.D.Performed By: #### RENACT, UMETRA, ALD #### [facility] , #### A1C WTH eA, BMP #### [facility] [address] [place] [id number] USAMetanephrines [Mass/volume] in 24 hour UrineOrdered By: Daniel Gloria on 37-37-9756Cnozpkngspdmg (24H U) [Mass/Vol]Metanephrines [Mass/volume] in 24 hour UrineUndefinedSouthview Medical CenterComment on above:This test was developed and its performance characteristicsdetermined by [facility]. It has not been cleared orapproved by the Food and Drug Administration.Metanephrines (24H U) [Mass/Vol]49 ug/LUndefinedSouthview Medical CenterComment on above:This test was developed and its performance characteristicsdetermined by [facility]. It has not been cleared orapproved by the Food and Drug Administration.Metanephrines/Creatinine [Mass Ratio] in UrineOrdered By: Daniel Gloria on 87-47-7992Vntupqhlkturi/Creatinine (U) [Mass ratio]Metanephrines/Creatinine [Mass Ratio] in Urine0.0-1.0[facility] Medical CenterComment on above:Result Units: ug/mg CreatPerformed at: - Lab[address] [id number] Director: John Mandel MD, Phone: [phone]/Creatinine (U) [Mass ratio] 0.40.0-1.0[facility] Medical CenterComment on above:Result Units: ug/mg CreatPerformed at: - [facility] [address] [place], [place] [address]Lab Director: John Mandel MD, Phone: [phone] Panel Information Ordered By: Daniel Gloria on 08-61-3828Yuvvjmgiq GFR (CKD-EPI)29.915 mL/Min [facility] Medical CenterPharmacy Creatinine Clearance (ChemN/AFSelect Medical Cleveland Clinic Rehabilitation Hospital, AvonNormetanephrine [Mass/volume] in 24 hour UrineOrdered By: Daniel Gloria on 84-30-9777Pnhaksgittizqms (24H U) [Mass/Vol]Normetanephrine [Mass/volume] in 24 hour UrineUndMercy Health Clermont HospitalComment on above:This test was developed and its performance characteristicsdetermined by [facility]. It has not been cleared orapproved by the Food and Drug Administration.Normetanephrine (24H U) [Mass/Vol]199 ug/LUndefinedSouthview Medical CenterComment on above:This test was developed and its performance characteristicsdetermined by [facility]. It has not been cleared orapproved by the Food and Drug Administration.Potassium [Moles/volume] in Serum or PlasmaOrdered By: Daniel Gloria on 06-19-5582Jwqciqmme [Moles/Vol]Potassium [Moles/volume] in Serum or Plasma3.5-5.1FSelect Medical Cleveland Clinic Rehabilitation Hospital, [facility]on Potassium [Moles/Vol]3.8 mmol/LNormal3.5-5.1FSelect Medical Cleveland Clinic Rehabilitation [facility], [place] Comment on above:Performed By: #### RENACT, UMETRA, ALD #### [facility] , #### A1C WT eA, BMP #### [facility] [address] [place] [address] USARenin Activityon 80-00-9501Vffrt Activity0.247Normal 0.167-5.380The [facility] Physician GroupComment on above:Result Comment: This test was developed and its performance characteristics determined by [facility]. It has not been cleared or approved by the Food and Drug Administration. Performed at: - [facility] [address] [place], [place] [id number] [employer]: John Mandel MD, Phone: [phone] PERFORMED BY: [facility] [address] [place] [address] PATHOLOGIST NURSE COMPANION SEBASTIAN SIMMS M.D.Performed By: #### RENACT, UMETRA, ALD #### [facility] , #### A1C WTH eA, BMP #### [facility] [address] [place] [address] USARenin activityOrdered By: Daniel Gloria on 07-13-2024 Renin (P) [Catalytic activity/Vol]Renin activity0.167-5.380[facility] Medical CenterComment on above:This test was developed and its performance characteristicsdetermined by [employer]. It has not been cleared orapproved by the Food and Drug Administration.Performed at: [address] [id number] Director: John Mandel MD, Phone: [phone] (P) [Catalytic activity/Vol]0.247 ng/mL/hr0.167-5.380[facility] Medical CenterComment on above:This test was developed and its performance characteristicsdetermined by [employer]. It has not been cleared orapproved by the Food and Drug Administration.Performed at: [address] [id number] Director: John Mandel MD, Phone: [phone] or plasma aldosterone measurement (mass/volume) Ordered By: Daniel Gloria on 41-59-0198Utbdbrhgmaz [Mass/Vol]Serum or plasma aldosterone measurement (mass/volume)0.0-30.0[facility] Comment on above:This test was developed and its performance characteristicsdetermined by [employer]. It has not been cleared orapproved by the Food and Drug Administration.Performed at: [facility] [employer] [id number] Director: John Mandel MD, Phone: [phone] [Mass/Vol]8.6 ng/dL0.0-30.0[facility] Medical CenterComment on above:This test was developed and its performance characteristicsdetermined by [employer]. It has not been cleared orapproved by the Food and Drug Administration.Performed at: [address] [id number] Director: John Mandel MD, Phone: [phone] or plasma anion gap determinationOrdered By: Daniel Gloria on 01-31-2149Vnzwg gap [Moles/Vol]Serum or plasma anion gap determination6.0-15.0 [facility] CenterAnion gap [Moles/Vol]11.8 mmol/LNormal6.0-15.0 [facility] CenterComment on above:Performed By: #### SHANA SORIANO ALD #### [facility] , #### A1C WTH eA, BMP #### [facility] [address] [place] [address] USASodium [Moles/volume] in Serum or PlasmaOrdered By: Daniel Gloria on 75-88-4789Wpdujv [Moles/Vol]Sodium [Moles/volume] in Serum or Plasma 136-145Ohio[facility] Hardin Memorial Hospitalodium [Moles/Vol]138 mmol/LNormal 136-145South[facility] Medical CenterComment on above:Performed By: #### SHANA SORIANO ALD #### [facility] , #### A1C WTH eA, BMP #### [facility] [address] [id number] USAUrea nitrogen [Mass/volume] in Serum or PlasmaOrdered By: Daniel Gloria on 53-15-9245Aifk nitrogen [Mass/Vol]Urea nitrogen [Mass/volume] in Serum or PlasmaHigh7-25[facility] Medical CenterUrea nitrogen [Mass/Vol]40 mg/dLHigh7-25[facility] Medical CenterComment on above: Performed By: #### SHANA SORIANO, ALD #### [facility] , #### A1C WTH eA, BMP #### [facility] [address] [id number] USAUrine creatinine measurement (mass/volume)Ordered By: Daniel Gloria on 08-96-5687Crxmvayurz (U) [Mass/Vol]Creatinine [Mass/volume] in UrineNot Estab.[facility] Medical CenterCreatinine (U) [Mass/Vol]73.3 mg/dLNot Estab.[facility] Medical CenterFPG ECG *CARDIOLOGY ONLY*on 76-76-2733EDH ECG *CARDIOLOGY ONLY*[facility] [place] [address] Electrocardiograph Report Signed Patient: Suresh Vallejo MR#: [id number] 0 : 1975 Acct:[id number] Age/Sex: 49 / M ADM Date: 07/08/24 Loc: EKGCARDIO Room: Type: [facility] Attending Dr: Daniel Gloria MD Ordering [...] previous ECGs available Confirmed by Daniel Gloria ([id number]) on 07/08/2024 4:29:16 PM Referred By: Electronically Signed By: Daniel Gloria Transcribed By: MUS Signed By Daniel Gloria MD 07/08/24 1629[facility] Physician GroupBasophils Auto (Bld) [#/Vol]on 20-03-6926Cktbdfdjl (Bld) [#/Vol]Automated basophil count0.0-0.1FSelect Medical Cleveland Clinic Rehabilitation Hospital, AvonBasophils/100 WBC Auto (Bld)on 12-57-4604Exdurvgoi/100 WBC (Bld)Automated basophil %0.2-2.0[facility] Eosinophils/100 WBC Auto (Bld)on 51-29-0974Meahoxqundj/100 WBC (Bld)Automated eosinophil %0.9-7.0[facility] Medical CenterErythrocyte distribution width Auto (RBC) [Ratio]on 69-41-7538Ltrwtfwjrjo distribution width (RBC) [Ratio]Erythrocyte distribution width [Ratio] by Automated count11.0-15.0 [facility] CenterEstimated glomerular filtration rate (GFR) non- Americanon 78-63-2296WNC/1.73 sq M.predicted among non-blacks MDRD (S/P/Bld) [Vol rate/Area]Estimated glomerular filtration rate (GFR) non- AmericanLow>=60 mL/min/1.73m 2FSelect Medical Cleveland Clinic Rehabilitation Hospital, AvonHematocrit Auto (Bld) [Volume fraction]on 84-12-6188Lkjpnudisl (Bld) [Volume fraction]Hematocrit [Volume Fraction] of Blood by Automated gmrcsDwm15.0-54.0[facility] Medical CenterHemoglobin [Mass/volume] in Bloodon 90-33-4787Kdpjwzitrx (Bld) [Mass/Vol]Hemoglobin [Mass/volume] in IbcsgKcg35.0-18.0[facility] Medical CenterLaboratory - Chemistry and Chemistry - challengeon 02-09-2024 Calcium [Mass/Vol]8.6 mg/dL8.5-10.1FSelect Medical Cleveland Clinic Rehabilitation Hospital, AvonChloride [Moles/Vol]109 mmol/VMyyf19-084EulshturgSouthview Medical CenterCO2 [Moles/Vol] 24.4 mmol/L21.0-32.0[facility] CenterCreatinine [Mass/Vol]2.50 mg/dLHigh0.70-1.30[facility] Medical CenterGFR/1.73 sq M.predicted MDRD (S/P/Bld) [Vol rate/Area]33 mL/min/{1.73_m2}Low>=60 mL/min/1.73m 2FSelect Medical Cleveland Clinic Rehabilitation Hospital, AvonGlucose [Mass/Vol]81 mg/hK70-480OqpppccodSouthview Medical CenterNatriuretic peptide B (Bld) [Mass/Vol]1600.0 pg/mLCritically high <=900.0[facility] Medical CenterComment on above:RESULTS CALLED TO JEAN CLAUDE VELASQUEZ RN @BY Kim [place] [id number] [Moles/Vol]4.3 mmol/L3.5-5.1 [facility] Hospitalodium [Moles/Vol]144 mmol/L328-832LwrcfplrtSouthview Medical CenterUrea nitrogen [Mass/Vol]38.0 mg/dLHigh7.0-18.0[facility] CenterUrea nitrogen/Creatinine [Mass ratio]15.2 mg/mgSouthview Medical CenterLaboratory - Hematology and Cell countson 02-09-2024 Immature granulocytes/100 WBC (Bld)0.1 %0.0-0.5FSelect Medical Cleveland Clinic Rehabilitation Hospital, Avon Leukocytes [#/volume] corrected for nucleated erythrocytes in Blood by Automated counon 92-12-2048PLX corrected for nucl RBC Auto (Bld) [#/Vol]Leukocytes [#/volume] corrected for nucleated erythrocytes in Blood by Automated coun 4.0-11.0[facility] Medical CenterLymphocytes Auto (Bld) [#/Vol]on 78-04-0317Qnbrybupgsn (Bld) [#/Vol]Lymphocytes [#/volume] in Blood by Automated count1.2-3.8[facility] Medical CenterLymphocytes/100 WBC Auto (Bld)on 04-14-4290Mbhzjsrsmsh/100 WBC (Bld)Lymphocytes/100 leukocytes in Blood by Automated count20.5-60.0[facility] Medical CenterMCH Auto (RBC) [Entitic mass]on 10-61-2015SVJ (RBC) [Entitic mass]MCH [Entitic mass] by Automated count 25.9-34.0[facility] Medical CenterMCHC Auto (RBC) [Mass/Vol]on 59-71-4058JYSR (RBC) [Mass/Vol]MCHC [Mass/volume] by Automated count29.9-35.2 [facility] CenterMCV Auto (RBC) [Entitic vol]on 34-20-0440ISD (RBC) [Entitic vol]MCV [Entitic volume] by Automated count80.0-94.0[facility] CenterMonocytes Auto (Bld) [#/Vol]on 71-67-2651Kfcxkyidh (Bld) [#/Vol]Automated blood monocyte count0.3-0.8[facility] Monocytes/100 WBC Auto (Bld)on 89-85-6785Fleorwiau/100 WBC (Bld)Automated monocyte %1.7-12.0[facility] Medical CenterNeutrophils Auto (Bld) [#/Vol]on 78-49-5644Dztbeiudswp (Bld) [#/Vol]Neutrophils [#/volume] in Blood by Automated count1.4-6.5FSelect Medical Cleveland Clinic Rehabilitation Hospital, AvonNeutrophils/100 WBC Auto (Bld)on 77-95-1224Brwwipyjfqy/100 WBC (Bld)Automated neutrophil %43.0-75.0 [facility] CenterNo Panel Informationon 30-79-6685Lmbqeexopte # (Auto)0.4 10 3/uL0.0-0.7FSelect Medical Cleveland Clinic Rehabilitation Hospital, AvonImmature Granulocyte # (Auto)0.01 10 3/uL0.00-0.03[facility] Medical CenterPlatelet mean volume Auto (Bld) [Entitic vol]on 61-27-5704Omdzekdh mean volume (Bld) [Entitic vol] Platelet mean volume [Entitic volume] in Blood by Automated count9.5-13.5 [facility] CenterPlatelets Auto (Bld) [#/Vol]on 02-09-2024 Platelets (Bld) [#/Vol]Platelets [#/volume] in Blood by Automated -042 [facility] CenterRBC Auto (Bld) [#/Vol]on 90-74-8902NPY (Bld) [#/Vol]Erythrocytes [#/volume] in Blood by Automated countLow4.70-6.10Ohio[facility] Hardin Memorial Hospitalerum or plasma anion gap determinationon 93-98-4372Btrsz gap [Moles/Vol]Serum or plasma anion gap determinationSouthview Medical CenterActivated partial thromboplastin time (aPTT) in platelet poor plasma by coagulation aon 76-34-0302iCGC Coag (PPP) [Time]Activated partial thromboplastin time (aPTT) in platelet poor plasma by coagulation a22.3-36.2 [facility] CenterBasophils Auto (Bld) [#/Vol]on 02-08-2024 Basophils (Bld) [#/Vol]Automated basophil count0.0-0.1FSelect Medical Cleveland Clinic Rehabilitation Hospital, AvonBasophils/100 WBC Auto (Bld)on 19-15-8319Odvdjyiwh/100 WBC (Bld)Automated basophil %0.2-2.0[facility] CenterEosinophils/100 WBC Auto (Bld)on 39-07-5962Jwyzrdrdjje/100 WBC (Bld)Automated eosinophil %0.9-7.0 [facility] CenterErythrocyte distribution width Auto (RBC) [Ratio]on 81-76-5931Xtdcocijpgu distribution width (RBC) [Ratio]Erythrocyte distribution width [Ratio] by Automated count11.0-15.0[facility] CenterEstimated glomerular filtration rate (GFR) non- Americanon 63-53-9377NJH/1.73 sq M.predicted among non-blacks MDRD (S/P/Bld) [Vol rate/Area]Estimated glomerular filtration rate (GFR) non- AmericanLow>=60 mL/min/1.73m 2FSelect Medical Cleveland Clinic Rehabilitation Hospital, AvonGlobulin Calc (S) [Mass/Vol]on 49-23-7326Xuwopriq (S) [Mass/Vol]Serum globulin measurement by calculation (mass/volume)[facility] Medical CenterHematocrit Auto (Bld) [Volume fraction]on 77-85-7874Lxenkkvhfm (Bld) [Volume fraction]Hematocrit [Volume Fraction] of Blood by Automated qqpaqXle38.0-54.0[facility] CenterHemoglobin [Mass/volume] in Bloodon 89-62-6250Ujzmztzcrb (Bld) [Mass/Vol] Hemoglobin [Mass/volume] in MmzadTda16.0-18.0[facility] INR in Platelet poor plasma by Coagulation assayon 81-81-5122QOO Coag (PPP) [Relative time]INR in Platelet poor plasma by Coagulation assaySouthview Medical CenterComment on above:DESIRED INR:2.0-3.0 CONDITIONS NOT LISTED BELOW2.5-3.5 FOR PROSTHETIC HEART VALVE REPLACEMENT2.5-3.5 RECURRENT THROMBOSISLaboratory - Chemistry and Chemistry - challengeon 04-55-1667Simvmgu [Mass/Vol]2.6 g/dLLow3.4-5.0[facility] CenterALP [Catalytic activity/Vol]98 U/W62-655RmpspzauzSouthview Medical CenterALT [Catalytic activity/Vol]26 U/U70-19OmepaxvdbSouthview Medical CenterAST [Catalytic activity/Vol]19 U/Q13-02HxawhyqwvSouthview Medical CenterBilirubin [Mass/Vol]0.6 mg/dL0.2-1.0[facility] CenterCalcium [Mass/Vol]8.8 mg/dL 8.5-10.1FSelect Medical Cleveland Clinic Rehabilitation Hospital, AvonChloride [Moles/Vol]109 mmol/LHigh 98-107[facility] CenterCO2 [Moles/Vol]23.6 mmol/L21.0-32.0 [facility] CenterCreatinine [Mass/Vol]2.55 mg/dLHigh0.70-1.30 [facility] CenterGFR/1.73 sq M.predicted MDRD (S/P/Bld) [Vol rate/Area]32 mL/min/{1.73_m2}Low>=60 mL/min/1.73m 2FSelect Medical Cleveland Clinic Rehabilitation Hospital, AvonGlucose [Mass/Vol]82 mg/uD91-273FlsntqwzlSouthview Medical CenterMagnesium [Mass/Vol]1.9 mg/dL1.8-2.4FSelect Medical Cleveland Clinic Rehabilitation Hospital, AvonNatriuretic peptide B (Bld) [Mass/Vol]4053.0 pg/mLCritically high<=900.0[facility] Medical CenterComment on above:RESULTS CALLED TO PAMELA SANTO RN @BY Kim Madrid at 0731Potassium [Moles/Vol]3.9 mmol/L3.5-5.1FSelect Medical Cleveland Clinic Rehabilitation Hospital, Avon Protein [Mass/Vol]7.1 g/dL6.4-8.2FRegency Hospital Cleveland Westodium [Moles/Vol]143 mmol/N597-672ZfpkwccivSouthview Medical CenterT4 [Mass/Vol]6.90 ug/dL4.50-12.10[facility] CenterTSH Qn2.921 m[IU]/L0.358-3.740 [facility] CenterUrea nitrogen [Mass/Vol]36.0 mg/dLHigh7.0-18.0 [facility] CenterUrea nitrogen/Creatinine [Mass ratio]14.1 mg/mg [facility] CenterLaboratory - Hematology and Cell countson 77-67-0092Pdcxrcsy granulocytes/100 WBC (Bld)0.1 %0.0-0.5FSelect Medical Cleveland Clinic Rehabilitation Hospital, AvonLeukocytes [#/volume] corrected for nucleated erythrocytes in Blood by Automated counon 98-08-9406FWM corrected for nucl RBC Auto (Bld) [#/Vol]Leukocytes [#/volume] corrected for nucleated erythrocytes in Blood by Automated coun4.0-11.0[facility] Medical CenterLymphocytes Auto (Bld) [#/Vol]on 70-40-5449Ngnlxikektp (Bld) [#/Vol]Lymphocytes [#/volume] in Blood by Automated count1.2-3.8[facility] CenterLymphocytes/100 WBC Auto (Bld)on 64-18-0259Depkhsdomml/100 WBC (Bld)Lymphocytes/100 leukocytes in Blood by Automated count20.5-60.0[facility] Medical CenterMCH Auto (RBC) [Entitic mass]on 16-90-3353UZP (RBC) [Entitic mass]MCH [Entitic mass] by Automated count25.9-34.0[facility] Medical CenterMCHC Auto (RBC) [Mass/Vol]on 64-78-0555YNLY (RBC) [Mass/Vol]MCHC [Mass/volume] by Automated count29.9-35.2FSelect Medical Cleveland Clinic Rehabilitation Hospital, AvonMCV Auto (RBC) [Entitic vol]on 49-69-3974GRQ (RBC) [Entitic vol]MCV [Entitic volume] by Automated count 80.0-94.0[facility] CenterMonocytes Auto (Bld) [#/Vol]on 76-96-9622Uhtdtsytu (Bld) [#/Vol]Automated blood monocyte count0.3-0.8[facility] CenterMonocytes/100 WBC Auto (Bld)on 35-22-5686Jjzfkqfdc/100 WBC (Bld)Automated monocyte %1.7-12.0[facility] Neutrophils Auto (Bld) [#/Vol]on 70-75-5029Vmuqurlwrvh (Bld) [#/Vol]Neutrophils [#/volume] in Blood by Automated count1.4-6.5FSelect Medical Cleveland Clinic Rehabilitation Hospital, Avon Neutrophils/100 WBC Auto (Bld)on 65-16-5335Gcjxwgoldbv/100 WBC (Bld)Automated neutrophil %43.0-75.0[facility] CenterNo Panel Informationon 30-93-3267Esbdypvbpys # (Auto)0.3 10 3/uL0.0-0.7FSelect Medical Cleveland Clinic Rehabilitation Hospital, AvonImmature Granulocyte # (Auto)0.01 10 3/uL0.00-0.03[facility] Medical CenterPhosphorus Level4.0 mg/dL2.6-4.7FSelect Medical Cleveland Clinic Rehabilitation Hospital, [place]on Platelet mean volume Auto (Bld) [Entitic vol]on 24-60-4455Kruxnqth mean volume (Bld) [Entitic vol]Platelet mean volume [Entitic volume] in Blood by Automated count9.5-13.5FSelect Medical Cleveland Clinic Rehabilitation Hospital, AvonPlatelets Auto (Bld) [#/Vol]on 40-79-4440Mkeczbsca (Bld) [#/Vol]Platelets [#/volume] in Blood by Automated tcfev804-108IfaixrctiSouthview Medical CenterProthrombin time (PT)on 02-08-2024 PT Coag (PPP) [Time]Prothrombin time (PT)9.0-11.6FSelect Medical Cleveland Clinic Rehabilitation Hospital, AvonRBC Auto (Bld) [#/Vol]on 19-23-6264QNM (Bld) [#/Vol]Erythrocytes [#/volume] in Blood by Automated countLow4.70-6.10[facility] Memorial Hospitalerum or plasma albumin/globulin mass ratioon 24-98-0338Esfsvou/Globulin [Mass ratio]Serum or plasma albumin/globulin mass ratioOhioHealth Hardin Memorial Hospitalerum or plasma anion gap determinationon 77-56-2103Eguoq gap [Moles/Vol]Serum or plasma anion gap determinationSouthview Medical CenterBuprenorphine [Presence] in Urineon 50-80-5430Dxexjrlopsjay Ql (U) Buprenorphine [Presence] in UrineNEGATIVESouthview Medical Center Comment on above:DRUG CLASS TEST SYSTEM CUT-OFF CONCENTRATIONS ARE ASFOLLOWS:AMP (Amphetamine): 500 ng/mLBAR (Barbiturates): 200 ng/mLBZO (Benzodiazepines): 150 ng/mLBUP (Buprenorphine): 10 ng/mLCOC (Cocaine): 150 ng/mLmAMP (Methamphetamine): 500 ng/mLMTD (Methadone): 200 ng/mLOPI (Opiates): 100 ng/mLOXY (Oxycodone): 100 ng/mLPCP (Phencyclidine): 25 ng/mLTHC (Cannabinoids): 50 ng/mLTCA (Trycyclic Antidepressants): 300 ng/mLLaboratory - Chemistry and Chemistry - challengeon 25-81-3016Qmqhusczy Ql (U)NegativeNEGKettering Health MiamisburgGlucose (U) [Mass/Vol]NegativeNEGATIVESouthview Medical CenterKetones Ql (U)NegativeNEGKettering Health MiamisburgpH (U)6.5 [pH]5.0-9.0[facility] Memorial Hospitalpecific gravity (U) [Rel density]1.0151.005-1.025[facility] Medical CenterUrobilinogen Qn (U)0.2 {Abiola'U}/dL0.2-1.0[facility] CenterMagnesium [Mass/Vol]2.1 mg/dL1.8-2.4FSelect Medical Cleveland Clinic Rehabilitation Hospital, AvonNatriuretic peptide B (Bld) [Mass/Vol]3918.0 pg/mLCritically high<=900.0[facility] Comment on above:RESULTS CALLED TO RICHIE Tang @BY Rogelio [place] 193Laboratory - Drug toxicologyon 09-08-2802Ocgyzuxywgxj Ql (U)NegativeNEGATIVE [facility] CenterBenzodiazepines Ql (U)NegativeNEGATIVESouthview Medical CenterCocaine Ql (U)NegativeNEGATIVESouthview Medical CenterOpiates Ql (U)NegativeNEGKettering Health Miamisburg Phencyclidine Ql (U)NegativeNEGKettering Health MiamisburgLaboratory - Specimen informationon 61-96-9479Uoinqagxxh (U)CLEARCLEARFSelect Medical Cleveland Clinic Rehabilitation Hospital, AvonColor (U)LT. YELLOWYELLOWSouthview Medical Center Laboratory - Urinalysison 51-81-0076Mfpdrlxxn esterase Test strip Ql (U)Negative NEGATIVESouthview Medical CenterMucus Ql (Urine sed)NONE SEENNONE SEEN [facility] CenterNitrite Ql (U)NegativeNEGATIVESouthview Medical CenterProtein Ql (U)>=300 mg/dLAbnormalNEG/TRACESouthview Medical CenterMethadone [Presence] in Urine by Screen methodon 36-37-7703Cwhewxxyn Screen Ql (U)Methadone [Presence] in Urine by Screen method NEGATIVESouthview Medical CenterNo Panel Informationon 91-35-3882Hzaiu BacteriaTRACE #/HPFAbnormalNONE [facility] HospitalUrine Barbiturates ScreenNegativeNEGATIVESouthview Medical CenterUrine Marijuana (THC) ScreenNegativeNEGKettering Health MiamisburgUrine Methamphetamines ScreenNegativeNEGKettering Health MiamisburgUrine Occult BloodSMALLAbnormnjNEGKettering Health MiamisburgUrine Other CastsNONE SEEN #/LPFNONE [facility] HospitalUrine Other CrystalsNone Seen #/HPFNone [facility] CenterUrine RBC0-2 #/HPF0-2FSelect Medical Cleveland Clinic Rehabilitation Hospital, AvonUrine Squamous Epithelial CellsNONE SEEN #/LPFNONE/RARESouthview Medical CenterUrine WBC0-2 #/HPFAbnormal NONE [facility] HospitalTroponin I High Kqspxaqxttr67.6 pg/mL 4.0-76.1FSelect Medical Cleveland Clinic Rehabilitation Hospital, AvonComment on above:CUT-OFF POINTS HAVE BEEN ESTABLISHED BASED ON THE FOURTHUNIVERSAL DEFINITION OF MYOCARDIAL INFARCTIO N. THE UPPERREFERENCE LIMIT (URL) OF TROPONIN, DEFINED THE 99THPERCENTILE OF cTnI DISTRIBUTION IN A REFERENCE POPULATION,HAS BEEN CONFIRMED THE DECISION THRESHOLD FOR MIDIAGNOSIS.99TH PERCENTILE = 76.2 PG/MLNOTE: HIGH-SENSITIVITY TROPONIN ASSAY IS NOT INTENDED TO BEUSED IN ISOLATION BUT SHOULD BE INTERPRETED IN CONJUNCTIONWITH OTHER DIAGNOSTIC AND CLINICAL INFORMATION.Urine tricyclic antidepressant measurementon 78-52-7024Rxrmcdwha antidepressants (U) [Mass/Vol] Urine tricyclic antidepressant measurementNEGATIVESouthview Medical CenteroxyCODONE+oxyMORphone [Presence] in Urine by Screen methodon 02-07-2024 oxyCODONE+oxyMORphone Screen Ql (U)oxyCODONE+oxyMORphone [Presence] in Urine by Screen methodNEGATIVESouthview Medical CenterUS venous duplex LE BIon 44-58-8162KU venous duplex LE [facility] [place] [address] [place], [place] [address] Ultrasound Report Signed Patient: Suresh Vallejo MR#: [id number] 0 : 1975 Acct:[id number] Age/Sex: 49 / M ADM Date: 02/05/24 Loc: Room: Type: [facility] Attending Dr: Edvin Hastings MD Ordering Provider: [...] Edvin Hastings MD02/06/2024 4:14 PM Dictation Location: [facility] Tech: Oksana Lucia Transcribed By: LAKSHMI 02/06/241613 Dictated By: Edvin Hastings MD 02/06/241612 Signed By: 02/06/24 [facility] Physician GroupUS Lower Extremity Venous Duplex Bilateralon 61-22-5458RN Lower Extremity Venous Duplex BilateralExam Date/Time: 01/08/2024 15:51 EST Reason for Exam: [...] Kenn Crow MD Transcribed by: MARTINEZ Technologist: [facility], Edwin ShawUS Lower Extremity Venous Duplex Lefton 85-34-0940OQ Lower Extremity Venous Duplex Left Exam Date/Time: [...] visualized right common femoral vein. Ordering Provider: JOHANN LEE FINAL REPORT Dictated: 12/26/2023 11:00 am Kenn Crow MD Signed (Electronic Signature): 12/26/2023 11:00 am Signed by: Kenn Crow MD Transcribed by: MARTINEZ Technologist: [facility], Edwin ShawCHEMISTRY Ordered By: SYSTEM SYSTEM on 126805-jkhapjsfpsyhwz D3 [Mass/Vol]13.6 ng/mL Low30.0 - 100.0 ng/mLFTMC RemisolAlbumin [Mass/Vol]3.8 g/dLNormal3.3 - 5.0 gm/dL [facility] RemisolAlbumin/Globulin [Mass ratio]0.9 {ratio}Low1.1 - 2.2[facility] RemisolALP [Catalytic activity/Vol]78 [iU]/yBthzhr32 - 98 Int._Unit/LFTMC RemisolALT No additional P-5'-P [Catalytic activity/Vol]32 [iU]/dNormal6 - 46 Int._Unit/LFTMC RemisolAnion gap [Moles/Vol]11 mmol/LNormal6 - 16 mEq/LFTMC RemisolAST [Catalytic activity/Vol]23 [iU]/dNormal5 - 43 Int._Unit/LFTMC RemisolBilirubin [Mass/Vol]0.5 mg/dLNormal0.0 - 1.1 mg/dLFTMC RemisolCalcium [Mass/Vol]9.2 mg/dL Normal8.9 - 11.1 mg/dLFTMC RemisolChloride [Moles/Vol]103 mmol/TOojefu870 - 111 mmol/LFTMC RemisolCholesterol [Mass/Vol]165 mg/kRHjpndt927 - 200 mg/dLFTMC RemisolCholesterol in HDL [Mass/Vol]46 mg/dLInvalid Interpretation CodeFTMC RemisolCholesterol in LDL [Mass/Vol]96 mg/dLNormal<=129mg/dLFTMC Remisol Cholesterol in VLDL [Mass/Vol]14 mg/dLNormal7 - 40 mg/dLFTMC RemisolCO2 [Moles/Vol]28 mmol/EUbilfy90 - 31 mmol/LFTMC RemisolCobalamin (Vitamin B12) [Mass/Vol]279 pg/hIRlmyiv24 - 1500 pg/mLFTMC RemisolCreatinine [Mass/Vol]1.7 mg/dLHigh0.5 - 1.3 mg/dLFTMC RemisolGFR/1.73 sq M.predicted among non-blacks MDRD (S/P/Bld) [Vol rate/Area]49 mL/min/1.73 m2Low>=59mL/min/1.73 m2FTMC Chem S Globulin (S) [Mass/Vol]4.4 g/dLHigh1.4 - 4.0 gm/dLFTMC RemisolGlucose [Mass/Vol] 90 mg/pQCtsqjl12 - 199 mg/dLFTMC RemisolPotassium [Moles/Vol]3.3 mmol/LLow3.5 - 5.3 mmol/LFTMC RemisolProtein [Mass/Vol]8.2 g/dLHigh6.0 - 7.8 gm/dLFTMC Remisol Sodium [Moles/Vol]139 mmol/MCanaxa573 - 145 mmol/LFTMC RemisolTriglyceride [Mass/Vol]71 mg/dLNormal<=149mg/dLFTMC RemisolTSH Qn1.71 m[IU]/LNormal0.34 - 5.60 mcIU/mLFTMC RemisolUrea nitrogen [Mass/Vol]16 mg/dLNormal5 - 21 mg/dLFTMC RemisolUrea nitrogen/Creatinine [Mass ratio]9 mg/mgLow10 - 20FT[facility] Remisol HEMATOLOGYOrdered By: SYSTEM SYSTEM on 49-59-6359Cccdnjwza/100 WBC (Bld)1.1 % Normal0.0 - 2.0 %[facility] HemeAutoSSBasophils/Leukocytes Auto (Bld) [Pure # fraction]0.1 E9/LNormal0.0 - 0.2 E9/LFTMC HemeAutoSSEosinophils/100 WBC (Bld)1.5 %Normal0.0 - 8.0 %[facility] HemeAutoSSEosinophils/Leukocytes Auto (Bld) [Pure # fraction]0.1 E9/LNormal0.0 - 0.5 E9/LFTMC HemeAutoSSLymphocytes/100 WBC (Bld) 26.6 %Nialis60.0 - 50.0 %[facility] HemeAutoSSLymphocytes/Leukocytes Auto (Bld) [Pure # fraction]2.4 E9/LNormal1.0 - 4.0 E9/LFTMC HemeAutoSSMonocytes/100 WBC (Bld)5.8 %Normal4.0 - 14.0 %[facility] HemeAutoSSMonocytes/Leukocytes Auto (Bld) [Pure # fraction]0.5 E9/LNormal0.2 - 1.0 E9/LFTMC HemeAutoSSNeutrophils/100 WBC (Bld) 65.0 %Oegaze10.0 - 75.0 %[facility] HemeAutoSSNeutrophils/Leukocytes Auto (Bld) [Pure # fraction]5.8 E9/LNormal2.0 - 7.5 E9/LFTMC HemeAutoSSHEMATOLOGYOrdered By: Rosalinda Guevara on 53-55-7616Hrevndyuydd distribution width (RBC) [Ratio]14.3 % High10.9 - 14.2 %[facility] HemeAutoSSHematocrit (Bld) [Volume fraction]44.9 %Normal 37.7 - 49.0 %[facility] HemeAutoSSHemoglobin (Bld) [Mass/Vol]15.1 g/tENwngyv70.5 - 17.5 gm/dLFTMC HemeAutoSSMCH (RBC) [Entitic mass]28.7 qvIcdqkm31.0 - 34.0 pgFTMC HemeAutoSSMCHC (RBC) [Mass/Vol]33.7 g/hIZfgmnh45.4 - 36.0 gm/dLFTMC HemeAutoSS MCV (RBC) [Entitic vol]85.2 tCRhhvnv29.0 - 100.0 fLFTMC HemeAutoSSPlatelet mean volume (Bld) [Entitic vol]8.6 fLNormal6.4 - 10.8 fLFTMC HemeAutoSSPlatelets (Bld) [#/Vol]316.0 E9/BChtssr373.0 - 500.0 E9/LFT[facility] HemeAutoSSRBC (Bld) [#/Vol] 5.3 E12/LNormal4.3 - 5.9 E12/LFTMC HemeAutoSSWBC corrected for nucl RBC Auto (Bld) [#/Vol]8.9 E9/LNormal4.0 - 11.0 E9/LFTMC HemeAutoSSCBC AUTO DIFFon [id number] #0.1 103/ulNormal0.0-0.1The [facility] HospitalComment on above: Performed By: #### CBC #### [facility] [address] [place] [address] Dr. Aubrey Tylersophils/100 WBC (Bld)0.8 %Normal0.2-2.0[facility] Comment on above:Performed By: #### CBC #### [facility] [address] [place] [address] Dr. Aubrey Gonzalez #0.1 103/ulNormal0.0-0.7The [facility] HospitalComment on above: Performed By: #### CBC #### [facility] [address] [place] [address] Dr. Aubrey Wardosinophils/100 WBC (Bld)1.3 %Normal0.9-7.0[facility] Comment on above:Performed By: #### CBC #### [facility] [address] [place] [address] Dr. Aubrey Wardrythrocyte distribution width (RBC) [Ratio]13.6 %Jpzzfn76.0-15.0 [facility] CenterComment on above:Performed By: #### CBC #### [facility] [address] [place] [address] Dr. Aubrey Pikeatocrit (Bld) [Volume fraction]41.0 %Critically low42.0-54.0 [facility] CenterComment on above:Performed By: #### CBC #### [facility] [address] [place] [address] Dr. Aubrey TatumHemoglobin (Bld) [Mass/Vol]13.0 g/dLCritically low14.0-18.0The [facility] HospitalComment on above:Performed By: #### CBC #### [facility] [address] [place] [address] Dr. Aubrey Romo #0.02 10e3/ulNormal0.00-0.03The [facility] HospitalComment on above:Performed By: #### CBC #### [facility] [address] [place] [address] Dr. Aubrey Romo %0.2 %Normal0.0-0.5The [facility] HospitalComment on above: Performed By: #### CBC #### [facility] [address] [place] [address] Dr. Aubrey Patel #2.0 103/ulNormal1.2-3.8The [facility] HospitalComment on above:Performed By: #### CBC #### [facility] [address] [place] [address] Dr. Aubrey Hayshocytes/100 WBC (Bld)21.8 %Itixdf49.5-60.0The [facility] HospitalComment on above:Performed By: #### CBC #### [facility] [address] [place] [address] Dr. Aubrey Juárez DIFF REQNONormalThe [facility] HospitalComment on above: Performed By: #### CBC #### [facility] [address] [place] [address] Dr. Aubrey Dewitt (RBC) [Entitic mass]28.1 gsAdussm85.9-34.0The [facility] HospitalComment on above:Performed By: #### CBC #### [facility] [address] [place] [address] Dr. Aubrey Dewitt (RBC) [Mass/Vol]31.7 g/xTKsaejf77.9-35.2The [facility] HospitalComment on above:Performed By: #### CBC #### [facility] [address] [place] [address] Dr. Aubrey Dewitt (RBC) [Entitic vol]88.7 xGFshyku28.0-94.0The [facility] HospitalComment on above:Performed By: #### CBC #### [facility] [address] [place] [address] Dr. Aubrey Chen #0.5 103/ulNormal0.3-0.8The [facility] HospitalComment on above:Performed By: #### CBC #### [facility] [address] [place] [address] Dr. Aubrey Rhodesocytes/100 WBC (Bld)5.7 %Normal1.7-12.0The [facility] Comment on above:Performed By: #### CBC #### [facility] [address] [place] [address] Dr. Aubrey FarrisUT #6.4 103/ulNormal1.4-6.5The [facility] HospitalComment on above:Performed By: #### CBC #### [facility] [address] [place] [address] Dr. Aubrey Farrisutrophils/100 WBC (Bld)70.2 %Mhlthn16.0-75.0The [facility] HospitalComment on above:Performed By: #### CBC #### [facility] [address] [place] [address] Dr. Aubrey Remylet mean volume (Bld) [Entitic vol]9.6 fLNormal9.5-13.5The [facility] HospitalComment on above:Performed By: #### CBC #### [facility] [address] [place] [address] Dr. Aubrey TatumPLT334 103/bgUnqjoi421-553Uuv [facility] HospitalComment on above: Performed By: #### CBC #### [facility] [address] [place] [address] Dr. Aubrey TatumRBC4.62 106/ulCritically low4.70-6.10The [facility] HospitalComment on above:Performed By: #### CBC #### [facility] [address] [place] [address] Dr. Aubrey TatumWBC9.1 103/ulNormal4.0-11.0The [facility] HospitalComment on above: Performed By: #### CBC #### [facility] [address] [place] [address] Dr. Aubrey TatumFRKALYN T3on [id number] T32.57 pg/mlLCritically low2.77-5.27The [facility] HospitalComment on above:Performed By: #### LIPID, CMP, FT3, TSH #### [facility] [address] [address] [address] Aubrey Ni T4on 50-44-6313Nsws T4 [Mass/Vol]0.93 ng/dLNormal0.78-2.19 [facility] CenterCommemorial healthcare on above:Performed By: #### FT4 #### [facility] [address] [address] [address] Aubrey Marrufo PROFILEon [id number]-HDL RATIO NORMSEE BELOWUniversity Hospitals Elyria Medical CenterComment on above:Result Comment: 3.3 - 4.4 LOW RISK 4.4 - 7.1 AVERAGE RISK 7.1 - 11.0 MODERATE RISK >11.0 HIGH RISKPerformed By: #### LIPID, CMP, FT3, TSH #### [facility] [address] [address] [address] Aubrey TatumCholesterol [Mass/Vol]155 mg/dLNormal<=200[facility] Comment on above:Performed By: #### LIPID, CMP, FT3, TSH #### [facility] [address] [address] [address] Aubrey Zhengesterol in HDL [Mass/Vol]51 mg/dLUniversity Hospitals Elyria Medical Center Comment on above:Performed By: #### LIPID, CMP, FT3, TSH #### [facility] [address] [address] [address] Aubrey Zhengesterol in LDL [Mass/Vol]94.2 mg/dLUniversity Hospitals Elyria Medical CenterComment on above:Performed By: #### LIPID, CMP, FT3, TSH #### [facility] [address] [address] [address] Aubrey Nash.total/Cholesterol in HDL [Mass ratio]3.0 {ratio} NormalTrumbull Regional Medical CenterCommemorial healthcare on above:Performed By: #### LIPID, CMP, FT3, TSH #### [facility] [address] [place] [address] Dr. Aubrey Keita NORMAL> or = 60 mg/dl - LOW CARDIOVASCULAR RISK <40 mg/dl - HIGH CARDIOVASCULAR RISKNoGreen Cross HospitalComment on above:Performed By: #### LIPID, CMP, FT3, TSH #### [facility] [address] [address] [address] Aubrey Bar CALC NORMALSEE BELOWUniversity Hospitals Elyria Medical CenterComment on above:Result Comment: <100 mg/dl OPTIMAL 100 - 129 mg/dl NEAR OR ABOVE OPTIMAL 130 - 159 mg/dl BORDERLINE HIGH 160 - 189 mg/dl HIGH >190 mg/dl VERY HIGH Performed By: #### LIPID, CMP, FT3, TSH #### [facility] [address] [address] [address] Aubrey TatumTriglyceride [Mass/Vol]49 mg/dLNormal<=150The [facility] Comment on above:Performed By: #### LIPID, CMP, FT3, TSH #### [facility] [address] [place] [address] Dr. Aubrey TatumVLDL CALC9.8 mg/dLNoGreen Cross HospitalComment on above: Performed By: #### LIPID, CMP, FT3, TSH #### [facility] [address] [place] [address] Dr. Aubrey TatumPROF 14(COMP METB)on 13-01-5169Tmjmxmm [Mass/Vol]3.1 g/dL Critically low3.5-5.0[facility] on above:Performed By: #### LIPID, CMP, FT3, TSH #### [facility] [address] [place] [address] Dr. Aubrey TatumAlbumin/Globulin [Mass ratio]0.7 {ratio}NormalThe [facility] HospitalCommemorial healthcare on above:Performed By: #### LIPID, CMP, FT3, TSH #### [facility] [address] [place] [address] Dr. Aubrey Massey [Catalytic activity/Vol]86 U/QCqspoj92-664[facility] on above:Performed By: #### LIPID, CMP, FT3, TSH #### [facility] [address] [place] [address] Dr. Yilan ChangALT [Catalytic activity/Vol]45 U/MQkqvho09-51FrpTrumbull Regional Medical CenterComment on above:Performed By: #### LIPID, CMP, FT3, TSH #### [facility] [address] [address] [address] Aubrey Ortizon gap [Moles/Vol]11.7 mmol/LNormalTrumbull Regional Medical Center Comment on above:Performed By: #### LIPID, CMP, FT3, TSH #### [facility] [address] [address] [address] Aubrey TatumAST [Catalytic activity/Vol]26 U/RLlqauh56-80PeeTrumbull Regional Medical CenterComment on above:Performed By: #### LIPID, CMP, FT3, TSH #### [facility] [address] [place] [address] Dr. Aubrey TatumBilirubin [Mass/Vol]0.4 mg/dLNormal0.2-1.3TGrant [facility] Comment on above:Performed By: #### LIPID, CMP, FT3, TSH #### [facility] [address] [place] [address] Dr. Aubrey TatumCalcium [Mass/Vol]9.0 mg/dLNormal8.4-10.2[facility] Comment on above:Performed By: #### LIPID, CMP, FT3, TSH #### [facility] [address] [address] [address] Aubrey TatumChloride [Moles/Vol]103 mmol/VOmceah97-792Lyn [facility] Comment on above:Performed By: #### LIPID, CMP, FT3, TSH #### [facility] [address] [place] [address] Dr. Aubrey TatumCO2 [Moles/Vol]27.9 mmol/TNjtjpc12.0-30.0The [facility] Comment on above:Performed By: #### LIPID, CMP, FT3, TSH #### [facility] [address] [place] [address] Dr. Aubrey TatumCreatinine [Mass/Vol]1.31 mg/dLCritically high0.66-1.25The [facility] HospitalComment on above:Performed By: #### LIPID, CMP, FT3, TSH #### [facility] [address] [address] [address] Aubrey WardGFR-AF ROMANIAN>60Normal>=60The [facility] HospitalComment on above:Performed By: #### LIPID, CMP, FT3, TSH #### [facility] [address] [address] [address] Aubrey WardGFR-NON AF VXDZQGFP70 mL/min/1.81k4Hxyjufqfal low>=60The [facility] HospitalComment on above:Performed By: #### LIPID, CMP, FT3, TSH #### [facility] [address] [place] [address] Dr. Aubrey TatumGlobulin (S) [Mass/Vol]4.5 g/dLNormalThProMedica Flower HospitalComment on above:Performed By: #### LIPID, CMP, FT3, TSH #### [facility] [address] [place] [address] Dr. Aubrey TatumGlucose [Mass/Vol]85 mg/rRQmmicq80-629PswTrumbull Regional Medical Center Comment on above:Performed By: #### LIPID, CMP, FT3, TSH #### [facility] [address] [place] [address] Dr. Aubrey TatumPotassium [Moles/Vol]3.6 mmol/LNormal3.4-5.0[facility] Comment on above:Performed By: #### LIPID, CMP, FT3, TSH #### [facility] [address] [place] [address] Dr. Aubrey TatumProtein [Mass/Vol]7.6 g/dLNormal6.1-8.2[facility] Comment on above:Performed By: #### LIPID, CMP, FT3, TSH #### [facility] [address] [place] [address] Dr. Aubrey TatumSodium [Moles/Vol]139 mmol/WEkbqcz248-323FsxTrumbull Regional Medical Center Comment on above:Performed By: #### LIPID, CMP, FT3, TSH #### [facility] [address] [address] [address] Aubrey Trujillo nitrogen [Mass/Vol]26.0 mg/dLCritically high9.0-20.0The [facility] HospitalComment on above:Performed By: #### LIPID, CMP, FT3, TSH #### [facility] [address] [place] [address] Dr. Aubrey Trujillo nitrogen/Creatinine [Mass ratio]19.8 mg/mgNoGreen Cross HospitalComment on above:Performed By: #### LIPID, CMP, FT3, TSH #### [facility] [address] [place] [address] Dr. Aubrey Gamboa 09-94-4782ESM7.234 uIU/mLNormal0.470-4.680The [facility] HospitalComment on above:Performed By: #### LIPID, CMP, FT3, TSH #### [facility] [address] [place] [address] Dr. Aubrey Singh [facility] BELOWUniversity Hospitals Elyria Medical CenterComment on above: Result Comment: <0.34 UIU/ml HYPERTHYROID 0.34-5.60 UIU/ml EUTHYROID >5.60 UIU/ml HYPOTHYROIDPerformed By: #### LIPID, CMP, FT3, TSH #### [facility] [address] [place] [address] Dr. Aubrey Tatum Vital Signs Date TimeVital SignValuePerforming [id number] 15:24-0400Body .8 cmSeth Rosa DO Work Phone: [facility]10-20-2025 15:24-0400 Body mass index (BMI) [Ratio]57.2 kg/m2Set Rosa DO Work Phone: [facility]10-20-2025 15:24-0400 Body psvhocvjsca77.1 [degF]Johann Rosa DO Work Phone: [facility]10-20-2025 15:24-0400 Body .04 kgSeth Rosa DO Work Phone: [phone])[address] [place], [place] 4603810-20-2025 15:24-0400 Diastolic blood knipebfl67 mm[Hg]Johann Rosa DO Work Phone: [phone])[address] [place], [place] 4603810-20-2025 15:24-0400 Heart rate69 /minSeth Rosa DO Work Phone: [phone])[address] [place], [place] 4603810-20-2025 15:24-0400 Respiratory rate18 /minSeth Rosa DO Work Phone: [phone])[address] [place], [place] 4603810-20-2025 15:24-0400 SaO2% (BldA) [Mass fraction]98 %Johann Rosa DO Work Phone: [phone])[address] [place], [place] 4603810-20-2025 15:24-0400 Systolic blood sedusaqw593 mm[Hg]Johann Rosa DO Work Phone: [phone])[address] [place], [place] 4603809-22-2025 15:06-0400 Body ukmvoq924.8 cmSeth Rosa DO Work Phone: [address] [place], [place] 4603809-22-2025 15:06-0400 Body mass index (BMI) [Ratio]53.1 kg/m2Seth Rosa DO Work Phone: [phone])[address] [place], [place] 4603809-22-2025 15:06-0400 Body ibbbzhbmhmp42.8 [degF]Johann Rosa DO Work Phone: [phone])[address] [place], [place] 4603809-22-2025 15:06-0400 Body ylrqgq305.82 kgSeth Rosa DO Work Phone: [phone])[address] [place], [place] 4603809-22-2025 15:06-0400 Diastolic blood obrxxsec82 mm[Hg]Johann Rosa DO Work Phone: [phone])[address] [place], [place] 4603809-22-2025 15:06-0400 Heart rate76 /minSeth Rosa DO Work Phone: [address] [place], [place] 4603809-22-2025 15:06-0400 Systolic blood tgmobudl211 mm[Hg]Johann Rosa DO Work Phone: [phone] [place], [place] 4603809-12-2025 11:52-0400 Body kaeohr115.8 cmSeth Rosa DO Work Phone: [address] [place], [place] 4603809-12-2025 11:52-0400 Body mass index (BMI) [Ratio]53.1 kg/m2Seth Rosa DO Work Phone: [address] [place], [place] 4603809-12-2025 11:52-0400 Body qfduuo554.82 kgSeth Rosa DO Work Phone: [address] [place], [place] 4603809-12-2025 11:52-0400 Diastolic blood jxdqbwaq29 mm[Hg]Johann Rosa DO Work Phone: [address] [place], [place] 4603809-12-2025 11:52-0400 Heart rate78 /minSeth Rosa DO Work Phone: [address] [place], [place] 4603809-12-2025 11:52-0400 Respiratory rate18 /minSeth Rosa DO Work Phone: [address] [place], [place] 4603809-12-2025 11:52-0400 SaO2% (BldA) [Mass fraction]98 %Johann Rosa DO Work Phone: [phone] [place], [place] 4603809-12-2025 11:52-0400 Systolic blood ydgejadt920 mm[Hg]Johann Rosa DO Work Phone: [address] [place], [place] 4603809-10-2025 11:18-0400 Body tovmglyupka27.8 [degF]Johann Rosa DO Work Phone: [address] [place], [place] 4603809-10-2025 11:18-0400 Diastolic blood ktughhyi33 mm[Hg]Johann Rosa DO Work Phone: 1(565)[address] [place], [place] 4603809-10-2025 11:18-0400 Heart rate82 /minSeth Rosa DO Work Phone: [phone])[address] [place], [place] 4603809-10-2025 11:18-0400 Respiratory rate16 /minSeth Rosa DO Work Phone: [phone])[address] [place], [place] 4603809-10-2025 11:18-0400 SaO2% (BldA) [Mass fraction]98 %Johann Rosa DO Work Phone: [phone])[address] [place], [place] 4603809-10-2025 11:18-0400 Systolic blood mm[Hg]Johann Rosa DO Work Phone: [phone])[address] [place], [place] 4603809-08-2025 14:03-0400 Body .8 cmSeth Rosa DO Work Phone: [phone])[address] [place], [place] 4603809-08-2025 14:03-0400 Body mass index (BMI) [Ratio]53.6 kg/m2Seth Rosa DO Work Phone: [phone])[address] [place], [place] 4603809-08-2025 14:03-0400 Body thyutkyixpc86 [degF]Johann Rosa DO Work Phone: [phone])[address] [place], [place] 4603809-08-2025 14:03-0400 Body tbczij966.64 kgSeth Rosa DO Work Phone: 1419)[address] [place], [place] 4603809-08-2025 14:03-0400 Diastolic blood mm[Hg]Johann Rosa DO Work Phone: 1419)[address] [place], [place] 4603809-08-2025 14:03-0400 Heart rate77 /minSeth Rosa DO Work Phone: [phone])[address] [place], [place] 4603809-08-2025 14:03-0400 Systolic blood mm[Hg]Johann Rosa DO Work Phone: 1419)[address] [place], [place] 4603809-02-2025 14:42-0400 Body gziqzx003.8 cmSeth Rosa DO Work Phone: 1419)[address] [place], [place] 4603809-02-2025 14:42-0400 Body mass index (BMI) [Ratio]53.6 kg/m2Seth Rosa DO Work Phone: [phone])[address] [place], [place] 4603809-02-2025 14:42-0400 Body wxladmmlior03.2 [degF]Johann Rosa DO Work Phone: [address] [place], [place] 4603809-02-2025 14:42-0400 Body nhgmam956.41 kgSeth Rosa DO Work Phone: [address] [place], [place] 4603809-02-2025 14:42-0400 Diastolic blood xrdvzdni32 mm[Hg]Johann Rosa DO Work Phone: 1(484)[address] [place], [place] 4603809-02-2025 14:42-0400 Heart rate68 /minSeth Rosa DO Work Phone: 1(906)[address] [place], [place] 4603809-02-2025 14:42-0400 Respiratory rate20 /minSeth Rosa DO Work Phone: [phone])[address] [place], [place] 4603809-02-2025 14:42-0400 SaO2% (BldA) [Mass fraction]98 %Johann Rosa DO Work Phone: [phone])[address] [place], [place] 4603809-02-2025 14:42-0400 Systolic blood owlfoook295 mm[Hg]Johann Rosa DO Work Phone: 1(260)[address] [place], [place] 4603807-24-2025 15:38-0400 Body vomqjboqiyu60.5 [degF]Johann Rosa DO Work Phone: 1(674)[address] [place], [place] 4603807-24-2025 15:38-0400 Diastolic blood gzahvzpt11 mm[Hg]Johann Rosa DO Work Phone: 1(897)[address] [place], [place] 4603807-24-2025 15:38-0400 Heart rate78 /minSeth Rosa DO Work Phone: 1(555)[address] [place], [place] 4603807-24-2025 15:38-0400 SaO2% (BldA) [Mass fraction]97 %Johann Rosa DO Work Phone: 1(493)1-[address] [place], [place] 5442207-24-2025 15:38-0400 Systolic blood lkikcdjd734 mm[Hg]Johann Rosa DO Work Phone: 1(335)[address] [place], [place] 4603807-17-2025 15:37-0400 Body zarcqg306.8 cmSeth Rosa DO Work Phone: 1(844)[address] [place], [place] 4603807-17-2025 15:37-0400 Body mass index (BMI) [Ratio]55.1 kg/m2Seth Rosa DO Work Phone: 1(816)[address] [place], [place] 4603807-17-2025 15:37-0400 Body rbagvzearmt58 [degF]Johann Rosa DO Work Phone: 1(479)[address] [place], [place] 4603807-17-2025 15:37-0400 Body vmjjet991.34 kgSeth Rosa DO Work Phone: 1(301)[address] [place], [place] 4603807-17-2025 15:37-0400 Diastolic blood ikwgudeb856 mm[Hg]Johann Rosa DO Work Phone: 1(096)[address] [place], [place] 4603807-17-2025 15:37-0400 Heart rate74 /minSeth Rosa DO Work Phone: 1(206)[address] [place], [place] 4603807-17-2025 15:37-0400 Respiratory rate18 /minSeth Rosa DO Work Phone: 1(892)[address] [place], [place] 4603807-17-2025 15:37-0400 SaO2% (BldA) [Mass fraction]96 %Johann Rosa DO Work Phone: 1(511)[address] [place], [place] 4603807-17-2025 15:37-0400 Systolic blood uhancdcn594 mm[Hg]Johann Rosa DO Work Phone: 1(579)[address] [place], [place] 4603805-07-2025 15:21-0400 Body .8 cmSeth Rosa DO Work Phone: 1419)[address] [place], [place] 4603805-07-2025 15:21-0400 Body mass index (BMI) [Ratio]55.2 kg/m2Seth Rosa DO Work Phone: 1419)[address] [place], [place] 4603805-07-2025 15:21-0400 Body nvkejw956.63 kgSeth Rosa DO Work Phone: 1419)[address] [place], [place] 4603805-07-2025 15:21-0400 Diastolic blood zcsbpnut83 mm[Hg]Johann Rosa DO Work Phone: 1419)[address] [place], [place] 4603805-07-2025 15:21-0400 Heart rate95 /minSeth Rosa DO Work Phone: 1419)[address] [place], [place] 4603805-07-2025 15:21-0400 Respiratory rate18 /minSeth Rosa DO Work Phone: 1419)[address] [place], [place] 4603805-07-2025 15:21-0400 SaO2% (BldA) [Mass fraction]95 %Johann Rosa DO Work Phone: 1419)[address] [place], [place] 4603805-07-2025 15:21-0400 Systolic blood ifwwkxoa893 mm[Hg]Johann Rosa DO Work Phone: 1419)[address] [place], [place] 4603804-17-2025 15:39-0400 Body .8 cmSeth Rosa DO Work Phone: 1419)[address] [place], [place] 4603804-17-2025 15:39-0400 Body mass index (BMI) [Ratio]54.1 kg/m2Seth Rosa DO Work Phone: 1419)[address] [place], [place] 4603804-17-2025 15:39-0400 Body qywcxjeuzgd44.5 [degF]Johann Rosa DO Work Phone: 1419)[address] [place], [place] 4603804-17-2025 15:39-0400 Body bldcby982 kgSeth Rosa DO Work Phone: [phone]04-17-2025 15:39-0400 Diastolic blood gxbdcmiv85 mm[Hg]Johann Rosa DO Work Phone: [facility]04-17-2025 15:39-0400 Heart rate60 /minSeth Rosa DO Work Phone: [facility]04-17-2025 15:39-0400 SaO2% (BldA) [Mass fraction]99 %Johann Rosa DO Work Phone: [facility]04-17-2025 15:39-0400 Systolic blood drbihaiu424 mm[Hg]Johann Rosa DO Work Phone: [facility]04-09-2025 15:34-0400 Body pyldpc966.8 cmSouthview Medical Center04-09-2025 15:34-0400Body mass index (BMI) [Ratio]54.2 kg/a9NumixmrgdSouthview Medical Center04-09-2025 15:34-0400Body fidrjignzzo64.8 [degF][facility]04-09-2025 15:34-0400Body zycuxm898.45 kgSouthview Medical Center04-09-2025 15:34-0400Diastolic blood fepfberb860 mm[Hg][facility] 06-10-2024 15:34-0400Heart rate62 /[facility] 06-10-2024 15:34-0400Respiratory rate18 /[facility] 06-10-2024 15:34-7112LeW7% (BldA) [Mass fraction]98 %[facility]04-09-2025 15:34-0400Systolic blood ilbpjqfd689 mm[Hg][facility]01-08-2025 15:38-0500Body tqolrg828.8 cmSeth Rosa DO Work Phone: [facility]01-08-2025 15:38-0500 Body mass index (BMI) [Ratio]52.6 kg/m2Seth Rosa DO Work Phone: 1(997)974-[address] [place], [place] 5442201-08-2025 15:38-0500 Body mfgjfsszokp96.2 [degF]Johann Rosa DO Work Phone: 1(482)[address] [place], [place] 4603801-08-2025 15:38-0500 Body ficpes895.46 kgSeth Rosa DO Work Phone: [address] [place], [place] 4603801-08-2025 15:38-0500 Diastolic blood yrcysgef59 mm[Hg]Johann Rosa DO Work Phone: 1(910)[address] [place], [place] 4603801-08-2025 15:38-0500 Heart rate62 /minSeth Rosa DO Work Phone: 1(623)[address] [place], [place] 4603801-08-2025 15:38-0500 Respiratory rate18 /minSeth Rosa DO Work Phone: 1(593)[address] [place], [place] 4603801-08-2025 15:38-0500 SaO2% (BldA) [Mass fraction]97 %Johann Rosa DO Work Phone: 1(102)[address] [place], [place] 4603801-08-2025 15:38-0500 Systolic blood confakwq881 mm[Hg]Johann Rosa DO Work Phone: 1(826)[address] [place], [place] 4603812-09-2024 15:08-0500 Body pvlexl882.8 cmSeth Rosa DO Work Phone: 1(345)[address] [place], [place] 4603812-09-2024 15:08-0500 Body mass index (BMI) [Ratio]54.5 kg/m2Seth Rosa DO Work Phone: [address] [place], [place] 4603812-09-2024 15:08-0500 Body ntneaemzmyk77.2 [degF]Johann Rosa DO Work Phone: 1(271)[address] [place], [place] 4603812-09-2024 15:08-0500 Body oobotn230.36 kgSeth Rosa DO Work Phone: 1(138)[address] [place], [place] 4603812-09-2024 15:08-0500 Diastolic blood acmvlzyf748 mm[Hg]Johann Rosa DO Work Phone: [facility]12-09-2024 15:08-0500 Heart rate59 /minSeth Rosa DO Work Phone: [facility]12-09-2024 15:08-0500 Respiratory rate18 /minSeth Rosa DO Work Phone: [facility]12-09-2024 15:08-0500 SaO2% (BldA) [Mass fraction]99 %Johann Rosa DO Work Phone: [facility] [facility] 15:08-0500 Systolic blood edsrmutl391 mm[Hg]Johann Rosa DO Work Phone: [facility]11-14-2024 15:20-0500 Body .8 [facility] 15:20-0500Body mass index (BMI) [Ratio]52.4 kg/w4XnopqktcpSouthview Medical Center11-14-2024 15:20-0500Body tqgtcndrkum58.8 [degF][facility]11-14-2024 15:20-0500Body ootwep550 kg[facility]11-14-2024 15:20-0500Diastolic blood kqqcxgiy73 mm[Hg][facility] 01-16-2024 15:20-0500Heart rate72 /[facility] 01-16-2024 15:20-0500Respiratory rate16 /[facility] 01-16-2024 15:20-5257RaI8% (BldA) [Mass fraction]98 %[facility]11-14-2024 15:20-0500Systolic blood mm[Hg][facility]10-31-2024 15:17-0400Body snenwk038.8 cm[facility]10-[facility]-2024 15:17-0400Body mass index (BMI) [Ratio]52.4 kg/j3VbfojegvxSouthview Medical Center10-31-2024 15:17-0400Body ojvvsquydjo27.6 [degF][facility]10-31-2024 15:17-0400Body envpqr492 kg[facility]10-31-2024 15:17-0400Diastolic blood deeuesje93 mm[Hg][facility]10-31-2024 15:17-0400Heart rate74 /[facility]10-31-2024 15:17-0400Respiratory rate16 /[facility]10-31-2024 15:17-7662NcI7% (BldA) [Mass fraction]98 %[facility]10-31-2024 15:17-0400Systolic blood xsubblor085 mm[Hg] [facility]10-23-2024 15:18-0400Diastolic blood pressure 100 mm[Hg][facility]10-23-2024 15:18-0400Systolic blood mqmcpdib068 mm[Hg][facility]10-23-2024 15:15-0400Body hwivgw222.8 cm[facility]10-23-2024 15:15-0400Body mass index (BMI) [Ratio]52.6 kg/z1YsgguchbnSouthview Medical Center10-23-2024 15:15-0400Body .46 kgSouth[facility]10-23-2024 15:15-0400Heart rate70 /[facility]10-23-2024 15:15-0400Respiratory rate18 /[facility]10-23-2024 15:15-5005PqN1% (BldA) [Mass fraction]98 %[facility] 11-06-2022 16:30-0400Body jemjyc103.8 [facility] Rosa Other [employer] Other 09-05-2023 16:30-0400Body mass index (BMI) [Ratio] 49.93 kg/m2Set Rosa Other [employer] Other 09-05-2023 16:30-0400Body rxcrmuknyan34.7 [degF]Johann Rosa Other [employer] Other 09-05-2023 16:30-0400Body qpvfey215.85 kgSeth Rosa Other [employer] Other 09-05-2023 16:30-0400Diastolic blood gyzdqktk68 mm[Hg] Johann Rosa Other [employer] Other 09-05-2023 16:30-0400Respiratory rate20 /minSeth Rosa Other [employer] Other 09-05-2023 16:30-6290YtD4% (BldA) [Mass fraction]97 % Johann Rosa Other [employer] Other 09-05-2023 16:30-0400Systolic blood ppdirjtx338 mm[Hg] Johann Rosa Other [employer] Other 08-23-2023 15:15-0400Body .8 cmHeidi Ibeth Other [employer] Other 08-23-2023 15:15-0400Body mass index (BMI) [Ratio] 50.64 kg/t3Kwcvb Ibeth Other [employer] Other 08-23-2023 15:15-0400Body bjhcag020.12 kgHeidi Ibeth Other [employer] Other 08-23-2023 15:15-0400Diastolic blood chkaeciu61 mm[Hg] Michelle Ibeth Other [employer] Other 08-23-2023 15:15-4282TeZ6% (BldA) [Mass fraction]97 % Michelle Ibeth Other [employer] Other 08-23-2023 15:15-0400Systolic blood pjabsavs333 mm[Hg] Michelle Ibeth Other [employer] Other 03-01-2023 16:30-0500Body tawjlg913.8 cmSeth Rosa Other [employer] Other 03-01-2023 16:30-0500Body mass index (BMI) [Ratio] 53.94 kg/m2Seth Rosa Other [employer] Other 03-01-2023 16:30-0500Body jjxvecomlpc42.5 [degF]Johann Rosa Other [employer] Other 03-01-2023 16:30-0500Body icrpaw204.55 kgSeth Rosa Other [employer] Other 03-01-2023 16:30-0500Diastolic blood mm[Hg] Johann Rosa Other [employer] Other 03-01-2023 16:30-0500Respiratory rate20 /minSeth Rosa Other [employer] Other 03-01-2023 16:30-6338StI2% (BldA) [Mass fraction]97 % Johann Rosa Other [employer] Other 03-01-2023 16:30-0500Systolic blood bbbizpqs117 mm[Hg] Johann Rosa Other [employer] Other 11-30-2022 19:45-0500Body uemckq955.8 cmSeth Rosa Other [employer] Other 11-30-2022 19:45-0500Body mass index (BMI) [Ratio] 54.95 kg/m2Seth Rosa Other [employer] Other 11-30-2022 19:45-0500Body ppmciqcjmlb46.1 [degF]Johann Rosa Other [employer] Other 11-30-2022 19:45-0500Body abumjy562.73 kgSeth Rosa Other [employer] Other 11-30-2022 19:45-0500Diastolic blood btgyjuxa22 mm[Hg] Johann Rosa Other [employer] Other 11-30-2022 19:45-0500Respiratory rate20 /minSeth Rosa Other [employer] Other 11-30-2022 19:45-0202ZtF8% (BldA) [Mass fraction]98 % Johann Rosa Other [employer] Other 11-30-2022 19:45-0500Systolic blood jwiyomcw523 mm[Hg] Johann Rosa Other [employer] Other 09-23-2022 09:45-0400Body xjufbd532.8 cmSeth Rosa Other [employer] Other 09-23-2022 09:45-0400Body mass index (BMI) [Ratio] 53.23 kg/m2Seth Rosa Other [employer] Other 09-23-2022 09:45-0400Body zxpjsoopkjd39.6 [degF]Johann Rosa Other [employer] Other 09-23-2022 09:45-0400Body kieoiz382.29 kgSeth Rosa Other [employer] Other 09-23-2022 09:45-0400Diastolic blood mqvhiiwj790 mm[Hg]Johann Rosa Other [employer] Other 09-23-2022 09:45-0400Respiratory rate20 /minSeth Rosa Other [employer] Other 09-23-2022 09:45-7407DbG1% (BldA) [Mass fraction]99 % Johann Rosa Other [employer] Other 09-23-2022 09:45-0400Systolic blood mm[Hg] Johann Rosa Other [employer] Other 08-24-2022 16:15-0400Body .8 cmHeidi Ibeth Other [employer] Other 08-24-2022 16:15-0400Body mass index (BMI) [Ratio] 54.09 kg/i4Muqdl Ibeth Other [employer] Other 08-24-2022 16:15-0400Body iyozxkslvyd62.3 [degF]Michelle Ibeth Other [employer] Other 08-24-2022 16:15-0400Body ndvimo881.01 kgHeidi Ibeth Other [employer] Other 08-24-2022 16:15-0400Diastolic blood yuwlnylj173 mm[Hg]Michelle Ibeth Other [employer] Other 08-24-2022 16:15-9995BwR1% (BldA) [Mass fraction]96 % Michelle Ibeth Other [employer] Other 08-24-2022 16:15-0400Systolic blood hnznievy951 mm[Hg] Michelle Ibeth Other [employer] Other 01-05-2022 17:30-0500Body .8 cmSeth Rosa Other [employer] Other 01-05-2022 17:30-0500Body mass index (BMI) [Ratio] 57.93 kg/m2Seth Rosa Other [employer] Other 01-05-2022 17:30-0500Body rtznaizsott28.9 [degF]Johann Rosa Other [employer] Other 01-05-2022 17:30-0500Body .16 kgSeth Rosa Other [employer] Other 01-05-2022 17:30-0500Diastolic blood fyqnaiym64 mm[Hg] Johann Rosa Other [employer] Other 01-05-2022 17:30-0500Respiratory rate20 /minSeth Rosa Other [employer] Other 01-05-2022 17:30-5868WgL0% (BldA) [Mass fraction]96 % Johann Rosa Other [employer] Other 01-05-2022 17:30-0500Systolic blood gskchvpo208 mm[Hg] Johann Rosa Other [employer] Other 11-22-2021 17:45-0500Body jyfxqy069.8 cmSeth Rosa Other [employer] Other 11-22-2021 17:45-0500Body mass index (BMI) [Ratio] 57.24 kg/m2Seth Rosa Other [employer] Other 11-22-2021 17:45-0500Body placcyrjsow68.7 [degF]Johann Rosa Other [employer] Other 11-22-2021 17:45-0500Body gaoaic868.99 kgSeth Rosa Other [employer] Other 11-22-2021 17:45-0500Diastolic blood upfywroo36 mm[Hg] Johann [facility] Other [facility] [employer] Other 11-22-2021 17:45-0500Respiratory rate20 /minSeth Rosa Other [place] [employer] Other 11-22-2021 17:45-7246YiE5% (BldA) [Mass fraction]98 % Johannasif AdamsRosa Other [facility] [employer] Other 11-22-2021 17:45-0500Systolic blood gdjvvzex250 mm[Hg] Johannasif AdamsRosa Other [facility] Other Encounters Encounter DateEncounter TypeCare ProviderFacilityStart: 12-21-2024 End: 32-65-4070cwmigaxcbdCgze AbeBaljeet Rosa DO Work Phone: -[facility] 12-21-2024 End: 71-68-4058Ouqxdxy encounter procedureSeth Rosa M DO-[facility] Work Phone: Start: 72-79-6145Llt-patient / Non-visitRalatha Santana MD-[facility] Work Phone: Start: 11-23-2024 End: 30-86-1437qhqtabbmcwCtmm AbeBaljeet Rosa DO Work Phone: [facility] Work Phone: Start: 11-23-2024 End: 31-51-3007Vcxlyse encounter procedureMicpaige Marin MD-[facility] Work Phone: Start: 20-34-4588Ifr-patient / Non-visitNorbert Porras MD -[facility] Work Phone: Start: 11-13-2024 End: 71-81-3006cjbzorudpqCxmo Abe. Rosa DO Work Phone: [facility] Work Phone: Start: 11-13-2024 End: 14-44-5136Troxsez encounter procedureGegretel Gloria MD-[facility] Work Phone: Start: 11-11-2024 End: 66-24-4635pktzxixndwNlln M. Rosa DO Work Phone: [facility] Work Phone: Start: 11-11-2024 End: 42-93-9592Ajwhmfg encounter procedureSkip Gordon MD-[facility] Work Phone: Start: 40-26-4591Pnx-patient / Non-visitRafik Esther ANTOINE-[facility] Work Phone: Start: 11-09-2024 End: 61-44-8767xtlbzfxhcmYvrm M. Rosa DO Work Phone: [facility] Work Phone: Start: 11-09-2024 End: 85-25-7300Qnugdcj encounter procedureMicpaige Marin MD-[facility] Work Phone: Start: 11-04-2024 End: 82-09-2157fpakksxzixDyvw M. Rosa DO Work Phone: [facility] Work Phone: Start: 11-04-2024 End: 76-82-0619Kmimoxh encounter procedureSeth Rosa Fsih DO-[facility] Family [facility] Work Phone: Start: 11-03-2024 End: 96-26-9472dukjaonoaaLmcq M. Rosa DO Work Phone: [facility] Work Phone: Start: 11-03-2024 End: 47-13-0985Spbxqmq encounter procedureNorbert Porras MD-[facility] Work Phone: Start: 32-62-2425Rms-patient / Non-visitSena Izquierdo MD-[facility] Work Phone: Start: 78-64-5148Ini-patient / Non-visitMarpradeep Eugene- [facility] Work Phone: Start: 70-73-5953Kpm-patient / Non-visitRalatha Santana MD-[facility] Work Phone: Start: 52-06-0680Izz-patient / Non-visitRalatha Santana MD-[facility] Work Phone: Start: 41-60-4802Xvd-patient / Non-visitRalatha Santana MD-[facility] Work Phone: Start: 77-04-7819Tvq-patient / Non-visitMaría Santana MD-[facility] Work Phone: Start: 10-23-2024 End: 09-05-6682kafsedgiuiJqdn M. Ruggles DO Work Phone: [facility] Work Phone: Start: 10-23-2024 End: 85-35-4309Oelnchxk ReferredMaría Santana MD-[facility] Start: 69-40-4094Gnr-patient / Non-visitMelissa Chiquita Garcia DO-[facility] Work Phone: Start: 09-24-2024 End: 94-89-1784ooforedjotUfwc M. Ruggles DO Work Phone: [facility] Work Phone: Start: 09-24-2024 End: 17-27-8101Vcpkfqo encounter procedureMattnapoleon Hastings MD-[facility] Vascular Surgery [place] Work Phone: Start: 09-17-2024 End: 27-68-3429eksihncokxLobz M. Rosa DO Work Phone: [facility] Work Phone: Start: 09-17-2024 End: 38-87-8299Safegeq encounter procedureSeth Rosa M DO-[facility] Family [facility] Work Phone: Start: 08-10-2024 End: 11-60-1137ikjsonzkusLfde M. Rosa DO Work Phone: [facility] Work Phone: Start: 08-10-2024 End: 35-77-3843Yjgsevu encounter procedureSeth Rosa DO Work Phone: [facility]-Ultrasound [facility] [place] Work Phone: Start: 07-13-2024 End: 97-86-8796Uyshakk encounter procedureSeth Rosa DO Work Phone: [facility]-Lab [facility] [place] Work Phone: Start: 07-13-2024 End: 00-17-8968yolmxdwpbqCckk M. Rosa DO Work Phone: [facility] Work Phone: Start: 07-08-2024 End: 33-24-5433xpccsoceqbNuya M. Rosa DO Work Phone: [facility] Work Phone: Start: 07-08-2024 End: 11-86-5445Pahzzqo encounter procedureSeth Rosa DO Work Phone: [facility] Work Phone: Start: 06-18-2024 End: 01-11-5253Knbpwvw encounter procedureSeth Rosa DO Work Phone: [facility] Vascular Surgery [place] Work Phone: Start: 06-10-2024 End: 66-71-2926yjlsptowtcKdllbchnaProMedica Memorial Hospital Work Phone: Start: 06-10-2024 End: 19-41-6836Yzcxkux encounter procedureFirelena Physician Group-[facility] Family Medicine [place] Work Phone: Start: 05-20-2024 End: 60-90-7066svxakcetmhXkeidsjgjProMedica Memorial Hospital Work Phone: Start: 05-20-2024 End: 54-33-4925Znhhira encounter procedureFirelena Physician GroupB[facility] Work Phone: Start: 03-11-2024 End: 20-93-6846pfpijqpfvsCgqz AbeBaljeet Rosa DO Work Phone: [facility] Work Phone: Start: 03-11-2024 End: 00-25-3844Idyyrto encounter procedureSeth Rosa DO Work Phone: [facility] Work Phone: Start: 02-13-2024 End: 00-51-3002Aiajegr encounter procedureSeth Rosa DO Work Phone: [facility] Vascular Surg Work Phone: Start: 02-10-2024 End: 73-92-2359Acnpdud encounter procedureSeth Rosa DO Work Phone: [facility] Work Phone: Start: 05-43-2363Fki-patient / Non-visitSeth Rosa DO Work Phone: [facility] [place] Work Phone: Start: 61-81-2490Cyw-patient / Non-visitSeth Rosa DO Work Phone: [facility] Work Phone: Start: 89-93-4039Njn-patient / Non-visitSeth Rosa DO Work Phone: [facility] Work Phone: Start: 77-74-7211Vpr-patient / Non-visitSeth Rosa DO Work Phone: [facility] Work Phone: Start: 02-05-2024 End: 33-09-6279Yanbwfq encounter procedureSeth Rosa DO Work Phone: [facility] Work Phone: Start: 02-05-2024 End: 44-05-4088tcphctsiwmYdqy M. RugglesFacility:[facility]: 01-16-2024 End: 26-72-0598kzwmbbbicbFeteormawMercy Health Defiance Hospital Work Phone: Start: 01-16-2024 End: 58-52-2791Coawvnm encounter procedureWakemed North Hospitaldwain [facility]ician [facility] V[facility] Surgery [place] Work Phone: Start: 01-08-2024 End: 63-07-9730ljdufvtssfYRAKDJOChandrika HASTINGSFacility:[facility]tart: 01-08-2024 End: 64-90-5245Exzuzeb encounter Manisha HASTINGS [facility] Start: 2024 End: 06-05-3745yaayrlulxuUgytvhfhlMercy Health Defiance Hospital Work Phone: Start: 2024 End: 60-72-4679Qktsxun encounter procedureFormerly [facility] Vascular Surgery [place] Work Phone: Start: 12-25-2023 End: 95-67-8889exaaheznboTYVP M RUGGLESFacility:FTMCStart: 12-25-2023 End: 04-95-4637Ncevcgl encounter procedureSETH M ROSA [facility] Start: 12-25-2023 End: 90-00-4478osxidkmflvNlmxwstlf [facility] Work Phone: Start: 12-25-2023 End: 46-56-2048Jparbcc encounter procedureFormerly [facility] GroupSequ[facility] Work Phone: Start: 04-12-2023 End: 11-13-5913qlxalxaupkSsrh Rosa Other [employer] Other Start: 88-25-1089Wlbedaqyd encounterSeth RugglesFPG [facility]: 02-28-2023 End: 14-44-1377pgzwkfaphjFgrl Rosa Other [employer] Other Start: 60-40-5928Dbunvokrz encounterSeth RugglesFPG [facility]: 01-08-2023 End: 77-07-8881bugkddrawtMjpk Rosa Other [employer] Other Start: 26-64-0511Qqkomktar encounterSeth RugglesFPG [facility]tart: 12-06-2022 End: 40-52-5436jivvzopxnhUnff Rosa Other [employer] Other Start: 10-97-5518Grypcbpab encounterSeth RugglesFPG [facility] Hospitalrt: 11-20-2022 End: 08-03-2555hurxrtndyeQlsd Rosa Other [employer] Other Start: 97-05-6787Xlovsfvto encounterSeth RugglesFPG Family [facility] Hospitaltart: 11-06-2022 End: 09-46-7908tngwpodsmsSyqt Rosa Other [facility] [employer] Other Start: 22-43-2051Ylklwo outpatient visit 15 minutes Johann RugglesFPG Family [facility] [place] Hospitaltart: 10-30-2022 End: 92-81-9856gztflovkacGfhf Rosa Other [facility] [employer] Other Start: 49-69-9077Mnmgheroa encounterSeth RugglesFPG Family [facility] Hospitalrt: 10-24-2022 End: 20-85-0126Bhcreyl encounter procedureDO Johann Rosa Work Phone: [facility]-Sleep Lab Work Phone: Start: 10-24-2022 End: 87-63-3330wcxfiwrlxsWC Johann M. Rosa Work Phone: [facility] Work Phone: Start: 72-66-6451Mqwvub outpatient visit 10 minutes [facility]: 10-16-2022 End: 21-76-4590tktwupnqstMcsg Rosa Other [facility] [employer] Other Start: 64-09-6411Mmvuubtvl encounterSeth RugglesFPG [facility] Hospitalrt: 10-10-2022 End: 07-47-0582Sqflmrn encounter procedureSETH M ROSA [facility] Start: 09-18-2022 End: 80-79-4028ywfnxowhkvCowz Rosa Other [place] [employer] Other start: 19-86-7146Vcsglhain encounterSeth RugglesFPG [facility] [place] Hospitaltart: 05-07-2022 End: 20-45-7802zbkakuutvxMzbd Rosa Other [facility] [employer] Other Start: 74-29-6293Fssnqchky encounterSeth RugglesFPG [facility] [facility]tart: 05-04-2022 End: 78-75-5806whzztxujciCwlj Rosa Other [facility] [employer] Other Start: 39-85-2209Bxredaozz encounterSeth RugglesFPG [facility] [place] Hospitaltart: 05-02-2022 End: 26-19-8722ucutnbiekhYotp Rosa Other [facility] [employer] Other Start: 10-83-4080Ectsex outpatient visit 15 minutes Johann RugglesFPG [facility] Hospitaltart: 01-31-2022 End: 74-30-5391omiqubuuyfBwat Rosa Other [facility] [employer] Other Start: 14-38-1932Npyfse outpatient visit 15 minutes Johann RugglesFPG [facility] [place] Hospitaltart: 12-22-2021 End: 94-05-5709wbpgkjfkmeBmnk Rosa Other [facility] [employer] Other Start: 32-97-7498Farbhfudo encounterSeth RugglesFPG [facility] Hospitaltart: 11-24-2021 End: 11-58-7489rormggvcfpWbac Rosa Other [facility] [employer] Other Start: 24-73-6392Mzwxmt outpatient visit 15 minutes Johann RugglesFPG [facility] Hospitaltart: 11-20-2021 End: 74-16-0951feqkqvuoahFdjs Rosa Other [facility] [employer] Other Start: 30-89-7949Icvwyjsyq encounterSeth RugglesFPG [facility] [place] [facility]tart: 10-25-2021 End: 31-92-9108Jwirjxn encounter procedureDO Johann Rosa Work Phone: [facility]-Sleep LabStart: 10-25-2021 End: 09-87-9320qnpozhcmtsAudzx Ibeth Other [facility] [employer] Other Start: 01-56-0317Ybgimb outpatient visit 10 minutes [facility]Start: 09-07-2021 End: 84-37-5823bymkimjrdlUxqv Rosa Other [facility] [employer] Other Start: 38-34-3087Dvcatumua encounterSeth RugglesFPG [facility] [place] Hospitaltart: 07-24-2021 End: 05-90-5709ctnuxutuhlGkju Rosa Other [place] [employer] Other Start: 36-48-7932Dwegfhpau encounterSeth RugglesFPG [facility] Hospitalrt: 05-31-2021 End: 75-18-7051gdzvmsiqonRqov Rosa Other [place] [employer] Other Start: 58-99-6268Iketrrvth encounterSeth RugglesFPG [facility] Hospitalrt: 05-30-2021 End: 36-77-8767Ljkkodh encounter procedureDO Johann Rosa Work Phone: [facility]-Sleep LabStart: 05-24-2021 End: 24-60-1712pjlbsoruymIxbw Rosa Other no [employer] Other Start: 96-64-7667Srawftvib encounterSeth RugglesFPG [facility] [place] Hospitaltart: 05-16-2021 End: 07-94-2568aurybiqdcrFfbg Rosa Other [facility] [employer] Other Start: 35-10-7858Dvlddoegf encounterSeth RugglesFPG [facility] [place] Hospitaltart: 04-14-2021 End: 63-38-0221tifgtivbetZhyn Rosa Other [facility] [employer] Other Start: 50-48-2978Cygjevxxm encounterSeth RugglesFPG Family [facility]rt: 03-08-2021 End: 24-15-1355oypozrfhdeRfkb Rosa Other [facility] [employer] Other Start: 97-64-5021Uevhkv outpatient visit 15 minutes Johann RugglesFPG [facility] [place] [facility]tart: 87-67-1260Gneskibst encounterSeth RugglesFPG [facility] [place] [facility]tart: 02-07-2021 End: 70-13-7933zitmsmlnoyWY JOHANN M RUGGLESFacility:G2Pyacq: 01-23-2021 End: 82-09-9980bwdmhgylvkHtog Rosa Other [facility] [employer] Other Start: 73-88-2085Rhaolt outpatient visit 25 minutes Johann RugglesFPG [facility]tart: 76-03-0847ftcukhfbjtOXZPFJSK CULLENFacility:H1 Procedures DateProcedureProcedure DetailPerforming ClinicianStart: 91-40-5024Knpcx culture Johann Rosa DO Work Phone: Start: 48-69-3024Itacrni ultrasonography of kidneySeth Rosa DO Work Phone: Start: 87-18-5033Riqswx scan of lower limb veinsSeth Rosa DO Work Phone: Plan of Treatment DateCare ActivityDetailAuthorStart: 71-26-8220Xfrtv cultureOhioHealth Hardin Memorial Hospitaltart: 52-48-8910Vicekext identified in Urine by CultureUrine CultureOhioHealth Hardin Memorial Hospitaltart: 13-39-7721Azoahbh ultrasonography of kidneyUS renal dopplerOhioHealth Hardin Memorial Hospitaltart: 25-35-9995RM Unspecified body [facility]: 07-13-2024 Aldosterone [Mass/volume] in Serum or [facility] Start: 06-48-6820Ngotn [Enzymatic activity/volume] in [facility]: 01-39-0530LqgrpkdipOhioHealth Hardin Memorial Hospitaltart: 95-26-0824IvxgblivaOhioHealth Hardin Memorial Hospitaltart: 97-23-8824Cwncpna referral [facility] Work Phone: Aldosterone [Mass/volume] in Serum or [facility] HospitalCreatinine [Mass/volume] in UrineSouthview Medical CenterImmunofixation for UrineSouthview Medical Center Metanephrines [Mass/volume] in 24 hour UrineSouthview Medical Center Metanephrines/Creatinine [Mass Ratio] in [facility] Normetanephrine [Mass/volume] in 24 hour UrineSouthview Medical Center Patient [facility] Work Phone: Renal function 2000 panel - Serum or [facility] HospitalRenin [Enzymatic activity/volume] in [facility] HospitalUS Heart TransthoracicSouthview Medical CenterUS Lower extremity vein - bilateralSouthview Medical CenterUS Lower extremity vein - [facility] HospitalUS Unspecified body [facility] Immunizations Immunization DateImmunizationNotesCare QoqlmwjkLuuyctsd25-12-9675Co not use COVID-19 Pfizer 2 doseSeth Rosa Other [facility]05-23-2021COVID-19 Vaccine Pfizer - Documentation Purposes OnlySeth Rosa Other [facility] CenterNEGATED: Highlighted row has not occurred!17-99-2619bkbfbhgxx, injectable, quadrivalent, contains preservativePatient ObjectionSeth Rosa Other [facility] [employer] Other NEGATED: Highlighted row has not occurred!12-09-2019 influenza, injectable, quadrivalent, contains preservativePatient ObjectionSeth Rosa Other [facility] [employer] Other NEGATED: Highlighted row has not occurred!01-05-2019 influenza, injectable, quadrivalent, contains preservativePatient ObjectionSeth Rosa Other [facility] [employer] Other NEGATED: Highlighted row has not occurred!01-04-2017 influenza, injectable, quadrivalent, contains preservativePatient ObjectionSeth Rosa Other [facility] [employer] Other Payers DatePayer CategoryPayerPolicy [id number] 2..[id number] 2..[id number] 2..[id number] 2..[id number] 2..[id number] [id number] [id number] [id number] [id number] 2..[id number] Social History DateTypeDetailFacilityTobacco smoking status NHISUnknown if ever smokedNort [employer] Other Start: 67-50-3822Vbd [facility] statusNo [facility] End: 56-31-6700[place] smoking status NHISNever smoked tobacco (finding) [facility] End: 34-93-3287PzxVutd (finding)[facility] Clinical Notes 01-23-2021 to 09-24-2024 Note Date & [id number] Evaluation note* Diagnosis Onset Date Resolution Status Admit Date Venous insufficiency of left leg acuteJuly 2024 3:37pmAnemia of renal diseaseacuteSeptember 2024 2:41pmCKD (chronic kidney disease) stage 4, GFR 15-29 ml/minacuteSeptember 2024 2:41pmHypertensive chronic kidney disease with stage 1 through stage 4 chronic kiacuteSeptember 2024 2:41pmProteinuriaacuteSeptember 2024 2:41pmSecondary hyperparathyroidismacuteSeptember 2024 2:41pmHypertensive chronic kidney disease with stage 1 through stage 4 chronic kiacuteSeptember 2024 10:44amSwelling of left lower extremityacuteSeptember 2024 10:44amSwelling of left lower extremityacuteSeptember 2024 1:57pmVenous insufficiency of left legacuteSeptember 2024 1:57pmCellulitisacuteSeptember 2024 10:57amEssential (primary) hypertensionacuteSeptember 2024 10:57amSuperficial vein thrombosisacuteSeptember 2024 10:57amSwelling of left lower extremityacuteSeptember 2024 10:57amVenous insufficiency of left legacuteSeptember 2024 10:57amDyspnea on exertionacuteSeptember 2024 11:46amEssential (primary) hypertensionacuteSeptember 2024 11:46am Obstructive sleep apneaacuteSeptember 2024 11:46amElevated serum creatininenoneactiveSeptember 2024 11:46amSwelling of left lower extremity acuteSeptember 2024 2:55pmVenous insufficiency of left legacuteSeptember 2024 2:55pmLymphedemanoneactiveOctober 2024 3:09pm [facility] Work Phone: 1(983) 284-210507-17-2025 Evaluation note* Diagnosis Onset Date Resolution Status Admit Date Essential (primary) hypertension acuteJuly 2024 3:16pmVenous insufficiency of left legacuteJuly 2024 3:37pm [facility] Work Phone: 1(504) 665-545907-17-2025 Evaluation note* Diagnosis Onset Date Resolution Status Admit Date Essential (primary) hypertension acuteJuly 2024 3:16pmVenous insufficiency of left legacuteJuly 2024 3:37pmAnemia of renal diseaseacuteSeptember 2024 2:41pmCKD (chronic kidney disease) stage 4, GFR 15-29 ml/minacuteSeptember 2024 2:41pmHypertensive chronic kidney disease with stage 1 through stage 4 chronic kiacuteSeptember 2024 2:41pmProteinuriaacuteSeptember 2024 2:41pmSecondary hyperparathyroidismacuteSeptember 2024 2:41pm [facility] Work Phone: 1(312) 347-338307-17-2025 Evaluation note* Diagnosis Onset Date Resolution Status Admit Date Essential (primary) hypertension acuteJuly 2024 3:16pmVenous insufficiency of left legacuteJuly 2024 3:37pmAnemia of renal diseaseacuteSeptember 2024 2:41pmCKD (chronic kidney disease) stage 4, GFR 15-29 ml/minacuteSeptember 2024 2:41pmHypertensive chronic kidney disease with stage 1 through stage 4 chronic kiacuteSeptember 2024 2:41pmProteinuriaacuteSeptember 2024 2:41pmSecondary hyperparathyroidismacuteSeptember 2024 2:41pmHypertensive chronic kidney disease with stage 1 through stage 4 chronic kiacuteSeptember 2024 10:44am Swelling of left lower extremityacuteSeptember 2024 10:44am [facility] Work Phone: 1(632) 232-960407-17-2025 Evaluation note* Diagnosis Onset Date Resolution Status Admit Date Essential (primary) hypertension acuteJuly 2024 3:16pmVenous insufficiency of left legacuteJuly 2024 3:37pmAnemia of renal diseaseacuteSeptember 2024 2:41pmCKD (chronic kidney disease) stage 4, GFR 15-29 ml/minacuteSeptember 2024 2:41pmHypertensive chronic kidney disease with stage 1 through stage 4 chronic kiacuteSeptember 2024 2:41pmProteinuriaacuteSeptember 2024 2:41pmSecondary hyperparathyroidismacuteSeptember 2024 2:41pmHypertensive chronic kidney disease with stage 1 through stage 4 chronic kiacuteSeptember 2024 10:44am Swelling of left lower extremityacuteSeptember 2024 10:44amSwelling of left lower extremityacuteSeptember 2024 1:57pmVenous insufficiency of left leg acuteSeptember 2024 1:57pm [facility] Work Phone: 1([phone]) 705-662407-17-2025 Evaluation note* Diagnosis Onset Date Resolution Status Admit Date Essential (primary) hypertension acuteJuly 2024 3:16pmVenous insufficiency of left legacuteJuly 2024 3:37pmAnemia of renal diseaseacuteSeptember 2024 2:41pmCKD (chronic kidney disease) stage 4, GFR 15-29 ml/minacuteSeptember 2024 2:41pmHypertensive chronic kidney disease with stage 1 through stage 4 chronic kiacuteSeptember 2024 2:41pmProteinuriaacuteSeptember 2024 2:41pmSecondary hyperparathyroidismacuteSeptember 2024 2:41pmHypertensive chronic kidney disease with stage 1 through stage 4 chronic kiacuteSeptember 2024 10:44am Swelling of left lower extremityacuteSeptember 2024 10:44amSwelling of left lower extremityacuteSeptember 2024 1:57pmVenous insufficiency of left leg acuteSeptember 2024 1:57pmCellulitisacuteSeptember 2024 10:57am Essential (primary) hypertensionacuteSeptember 2024 10:57amSuperficial vein thrombosisacuteSeptember 2024 10:57amSwelling of left lower extremity acuteSeptember 2024 10:57amVenous insufficiency of left legacuteSeptember 2024 10:57amDyspnea on exertionacuteSeptember 2024 11:46amEssential (primary) hypertensionacuteSeptember 2024 11:46amObstructive sleep apnea acuteSeptember 2024 11:46amElevated serum creatininenoneactiveSeptember 2024 11:46am [facility] Work Phone: 1(463) 909-407605-07-2025 Evaluation note* Diagnosis Onset Date Resolution Status Admit Date Dyspnea on exertion acuteMay 2024 3:10pmEssential (primary) hypertensionacuteMay 2024 3:10pmObstructive sleep apneaacuteMay 2024 3:10pmElevated serum creatinine noneactiveMay 2024 3:10pmEssential (primary) hypertensionacuteJuly 2024 3:16pm [facility] Work Phone: 1(925) 422-903204-09-2025 Evaluation note* Diagnosis Onset Date Resolution Status Admit Date Essential (primary) hypertension acuteApril 2024 3:32pmBody mass index [BMI] 50.0-59.9, adultnoneactiveApril 2024 3:32pmVenous insufficiency of left legacuteApril 2024 3:36pm [facility] Work Phone: 1(494) 470-791304-09-2025 Evaluation note* Diagnosis Onset Date Resolution Status Admit Date Essential (primary) hypertension acuteApril 2024 3:32pmBody mass index [BMI] 50.0-59.9, adultnoneactiveApril 2024 3:32pmVenous insufficiency of left legacuteApril 2024 3:36pm Dyspnea on exertionacuteMay 2024 3:10pmEssential (primary) hypertension acuteMay 2024 3:10pmObstructive sleep apneaacuteMa2024 3:10pm Elevated serum creatininenoneactiveJuly 08, 2024 3:10pm [facility] Work Phone: 1([phone]) 241-598701-08-2025 Evaluation note* Diagnosis Onset Date Resolution Status Admit Date Essential (primary) hypertension acuteJanuary 2024 3:24pm [facility] Work Phone: 1([phone]) 691-733610-23-2024 Evaluation note* Diagnosis Onset Date Resolution Status Admit Date Essential (primary) hypertension acuteOctober 2023 3:13pmLeft leg swellingnoneactiveOctober 2023 3:13pmSwelling of left lower extremityacuteOctober 2023 3:14pm [facility] Work Phone: 1(679) 481-684210-23-2024 Evaluation note* Diagnosis Onset Date Resolution Status Admit Date Essential (primary) hypertension acuteOctober 2023 3:13pmLeft leg swellingnoneactiveOctober 2023 3:13pmSwelling of left lower extremityacuteOctober 2023 3:14pmEssential (primary) hypertensionacuteDecember 2023 3:07pmObstructive sleep apneaacute [place] 2023 3:07pmVenous insufficiency of left legacuteDecember 2023 3:29pmEssential (primary) hypertensionacuteJanuary 2024 3:24pm [facility] Work Phone: 1(558) 179-988812-28-2023 Evaluation note* Encounter Date Diagnosis Assessment Notes Treatment Notes Treatment Clinical Notes Feb, Decreased GFR (ICD-10 - R94.4) [employer] Other 10-05-2023 Evaluation note* Encounter Date Diagnosis Assessment Notes Treatment Notes Treatment Clinical Notes Dec, Decreased GFR (ICD-10 - R94.4) [employer] Other 09-19-2023 Evaluation note* Encounter Date Diagnosis Assessment Notes Treatment Notes Treatment Clinical Notes Nov, Essential (primary) hypertension (ICD-10 - I10) [employer] Other 09-05-2023 Evaluation note* Encounter Date Diagnosis Assessment Notes Treatment Notes Treatment Clinical Notes Nov, Essential (primary) hypertension (ICD-10 - I10) eRX sent. Pt to take two fo current med then start new one a day med. Nov,OtherThe goal of hypertension as always to have a blood pressure within acceptable limits, with patient staying compliant with medication. Increased activity, monitoring diet, and weight loss are always encouraged. [employer] Other 08-23-2023 Evaluation note* Encounter Date Diagnosis Assessment Notes Treatment Notes Treatment Clinical Notes Oct, Obstructive sleep apnea (ICD-10 - G47.33) [employer] Other 07-18-2023 Evaluation note* Encounter Date Diagnosis Assessment Notes Treatment Notes Treatment Clinical Notes Sep, Essential (primary) hypertension (ICD-10 - I10) [employer] Other 03-03-2023 Evaluation note* Encounter Date Diagnosis Assessment Notes Treatment Notes Treatment Clinical Notes May, Essential (primary) hypertension (ICD-10 - I10) [employer] Other 03-01-2023 Evaluation note* Encounter Date Diagnosis Assessment Notes Treatment Notes Treatment Clinical Notes May, Essential (primary) hypertension (ICD-10 - I10) May,hronic fatigue (ICD-10 - R53.82) May,OtherThe goal of hypertension as always to have a blood pressure within acceptable limits, with patient staying compliant with medication. Increased activity, monitoring diet, and weight loss are always encouraged. [employer] Other 03-01-2023 Evaluation note* Encounter Date Diagnosis Assessment Notes Treatment Notes Treatment Clinical Notes May, Essential (primary) hypertension (ICD-10 - I10) May,hronic fatigue (ICD-10 - R53.82)Discussed with patient that we can pursue some blood work, I would suggest thyroid as well as some vitamin review. He voices agreement and understanding and we will call him with results. May,OtherThe goal of hypertension as always to have a blood pressure within acceptable limits, with patient staying compliant with medication. Increased activity, monitoring diet, and weight loss are always encouraged. [employer] Other 11-30-2022 Evaluation note* Encounter Date Diagnosis Assessment Notes Treatment Notes Treatment Clinical Notes Jan, Essential (primary) hypertension (ICD-10 - I10) Better control with his blood pressure with the quadruple therapy. I am somewhat concerned about his increased swelling in his legs. I wonder if this could be secondary to his amlodipine. Therefore Iwould like him to decrease the amlodipine to 5 mg. We may need to adjust his other medication if the swelling improves but his blood pressure increases. He voices agreement and understanding and willcall with update. Jan,therThe goal of hypertension as always to have a blood pressure within acceptable limits, with patient staying compliant with medication. Increased activity, monitoring diet, and weight loss are always encouraged. [employer] Other 10-21-2022 Evaluation note* Encounter Date Diagnosis Assessment Notes Treatment Notes Treatment Clinical Notes Dec, Essential (primary) hypertension (ICD-10 - I10) [employer] Other 09-23-2022 Evaluation note* Encounter Date Diagnosis Assessment Notes Treatment Notes Treatment Clinical Notes Nov, Essential (primary) hypertension (ICD-10 - I10) eRX sent. Will recheck in 2-3 months. Nov,2OtherThe goal of hypertension as always to have a blood pressure within acceptable limits, with patient staying compliant with medication. Increased activity, monitoring diet, and weight loss are always encouraged. [employer] Other 09-19-2022 Evaluation note* Encounter Date Diagnosis Assessment Notes Treatment Notes Treatment Clinical Notes Nov, Essential (primary) hypertension (ICD-10 - I10) [employer] Other 08-24-2022 Evaluation note* Encounter Date Diagnosis Assessment Notes Treatment Notes Treatment Clinical Notes Oct, Obstructive sleep apnea (ICD-10 - G47.33) [employer] Other 05-23-2022 Evaluation note* Encounter Date Diagnosis Assessment Notes Treatment Notes Treatment Clinical Notes July, Essential (primary) hypertension (ICD-10 - I10) [employer] Other 03-23-2022 Evaluation note* Encounter Date Diagnosis Assessment Notes Treatment Notes Treatment Clinical Notes May, Chronic fatigue (ICD-10 - R53.82 ) [employer] Other 02-11-2022 Evaluation note* Encounter Date Diagnosis Assessment Notes Treatment Notes Treatment Clinical Notes Apr, Essential (primary) hypertension (ICD-10 - I10) [employer] Other 01-05-2022 Evaluation note* Encounter Date Diagnosis [...] and understanding to the all of this. Mar,aytime somnolence (ICD-10 - R40.0) Lengthy discussion with patient today that I think it is quite reasonable to have him see sleep medicine for review. He would like to go ahead and pursue this. We will make referral. Mar,therThe goal of hypertension as always to have a blood pressure within acceptable limits, with patient staying compliant with medication. Increased activity, monitoring diet, and weight loss are always encouraged. [employer] Other 11-22-2021 Evaluation note* Encounter Date Diagnosis [...] needs to lose a lot of weight. Jan,hronic fatigue (ICD-10 - R53.82) Lengthy 30+ minute discussion today. I think I would like to pursue some blood work, as we need to make sure there are not any abnormalities on the blood work that could be contributing to his weightgain, specifically thyroid. Jan,OtherThe goal of hypertension as always to have a blood pressure within acceptable limits, with patient staying compliant with medication. Increased activity, monitoring diet, and weight loss are always encouraged. [place] [employer] Other Evaluation + Plan note No data available for this section [facility] noteNo assessment information available [facility] Work Phone: Evaluation noteNo InformationNortFirst [facility]&ALL Other Evaluation note* Diagnosis Onset Date Resolution Status Essential (primary) hypertension acuteLeft leg swellingnoneactive [facility] Work Phone: Evaluation note* Diagnosis Onset Date Resolution Status Admit Date Essential (primary) hypertension acuteApril 2024 3:32pm [facility] Work Phone: History general Narrative - Reported* Type Description Date Medical History Hypertension [facility] LOC&ALL Other History general Narrative - Reported* Type Description Date Medical History Hypertension Medical HistorySleep Apnea [facility] LOC&ALL Other Hospital Discharge instructions No data available for this section [facility] No data available for this section [facility] CenterReason for referral (narrative)No reason for referral information availableBlanchard Valley Health [facility] Work Phone: Summary Purpose Family History No Family History Records Found Relationship Condition Age at Onset Recorded Date/T lucas brother Diabetes mellitus Unknown DeceasedUnknownfatherDiabetes mellitusUnknownHypertensionUnknownmotherDeceased UnknownDiabetes mellitusUnknownMalignant neoplasm of pancreasUnknown Advance Directives No Advanced Directives Records Found [...] concerns REF BY DR. LEE FOR LEG SWELLINGReason for VisitEssential (primary) hypertension Left leg swelling Chief Complaint Admit Date BP concerns December 25, 2023 3 :13pm REF BY DR. LEE FOR LEG SWELLING 2023 3:14pm GO OVER F/F DONE [place] [facility] January 16, 2024 3:15pm Reason for Visit Admit Date Essential (primary) hypertension December 25, 2023 3:13pm Left leg swelling December 25, 2023 3 :13pm Swelling of left lower extremity 2024 3:14pm Chief Complaint Admit Date BP concerns December 25, 2023 3 :13pm REF BY DR. LEE FOR LEG SWELLING 2023 3:14pm GO OVER F/F DONE AT [facility] January 16, 2024 3:15pm I83.813 February 05, 2024 3 :22pm Amb Documentation February 10, 2024 1 2:03pm chest congestion February 10, 2024 3 :07pm GO OVER F/F DONE AT [facility] February 13, 2024 3:29pm one month March [...] 2024 2:41pm Hospital follow up/ FMLA Paperwork [facility] 2024 10:44am Chief Complaint Admit Date 3 month follow up September 17, 2024 3:16 pm 3 mo VV F/U no testing September 24, 2024 3 :37pm Unknown October 23, 2024 9: 56pm Amb Documentation October 28, 2024 9: 25am CKD 4 November 03, 2024 2:41pm Hospital follow up/ FMLA Paperwork [facility] 2024 10:44am Ref: Dr. Shetty Diab [...] 2024 10:44am Swelling of left lower extremity [facility] 2024 10:44am Chief Complaint Admit Date 3 month follow up September 17, 2024 3:16 pm 3 mo VV F/U no testing September 24, 2024 3 :37pm Unknown October 23, 2024 9: 56pm Amb Documentation October 28, 2024 9: 25am CKD 4 November 03, 2024 2:41pm Hospital follow up/ FMLA Paperwork [facility] 2024 10:44am Ref: Dr. Shetty Diab - Cellulitis LBaljeet Low er Leg November 09, 2024 1:57pm Superficial clot, [facility] on 0 10/27November 11, 2024 10:57am [...] 2024 10:44am Swelling of left lower extremity [facility] 2024 10:44am Swelling of left lower extremity [facility] 2024 1:57pm Venous insufficiency of left leg [facility] 2024 1:57pm Chief Complaint Admit Date 3 month follow up September 17, 2024 3:16 pm 3 mo VV F/U no testing September 24, 2024 3 :37pm Unknown October 23, 2024 9: 56pm Amb Documentation October 28, 2024 9: 25am CKD 4 November 03, 2024 2:41pm Hospital follow up/ FMLA Paperwork [facility] 2024 10:44am Ref: Dr. Shetty Diab - Cellulitis LBaljeet Low er Leg November 09, 2024 1:57pm Superficial clot, [facility] on 0 10/27November 11, 2024 10:57am [...] 2024 10:44am Swelling of left lower extremity [facility] 2024 10:44am Swelling of left lower extremity [facility] 2024 1:57pm Venous insufficiency of left leg [facility] 2024 1:57pm Cellulitis November 11, 2024 10:57am Essential (primary) hypertension [facility] 2024 10:57am Superficial vein thrombosis November 112024 10:57am Swelling of left lower extremity [facility] 2024 10:57am Venous insufficiency of left leg [facility] 2024 10:57am Dyspnea on exertion November 13, 2024 11:46am Essential (primary) hypertension [facility] 2024 11:46am Obstructive sleep apnea November 13, 2024 11:46am Elevated serum creatinine November 11:46am Chief Complaint Admit Date 3 month follow up September 17, 2024 3:16 pm 3 mo VV F/U no testing September 24, 2024 3 :37pm Unknown October 23, 2024 9: 56pm Amb Documentation October 28, 2024 9: 25am CKD 4 November 03, 2024 2:41pm Hospital follow up/ FMLA Paperwork [employer] 2024 10:44am Ref: Dr. Sena Izquierdo - Cellulitis LBaljeet Low er Leg November 09, 2024 1:57pm Superficial clot, [facility] on 0 10/27November 11, 2024 10:57am 3 month f/u November 13, 2024 11:46am 2 week f/u November 23, 2024 2:55pm Chief Complaint Admit Date 3 mo VV F/U no testing September 24, 2024 3 :37pm Unknown October 23, 2024 9: 56pm Amb Documentation October 28, 2024 9: 25am CKD 4 November 03, 2024 2:41pm [facility] follow [facility] 2024 10:44am Ref: Dr. Sena Izquierdo - Cellulitis L. Low er Leg November 09, 2024 1:57pm Superficial clot, [facility] on 0 10/27November 11, 2024 10:57am 3 month f/u November 13, 2024 11:46am 2 week f/u November 23, 2024 2:55pm 3 month follow up December 21, 2024 3 :09pm Reason for Visit Admit Date Venous insufficiency of left leg September 242024 [...] 2024 10:44am Swelling of left lower extremity [facility] 2024 10:44am Swelling of left lower extremity [facility] 2024 1:57pm Venous insufficiency of left leg [facility] 2024 1:57pm Cellulitis November 11, 2024 10:57am Essential (primary) hypertension [facility] 2024 10:57am Superficial vein thrombosis November 112024 10:57am Swelling of left lower extremity [facility] 2024 10:57am Venous insufficiency of left leg [facility] 2024 10:57am Dyspnea on exertion November 13, 2024 11:46am Essential (primary) hypertension [facility] 2024 11:46am Obstructive sleep apnea November 13, 2024 11:46am Elevated serum creatinine November 11:46am Swelling of left lower extremity [facility] 2024 2:55pm Venous insufficiency of left leg [facility] 2024 2:55pm Lymphedema December 21, 2024 3 :09pm Additional Source Comments (unrecognized sect ion and content) No Status Records FoundNo Status Records FoundNo Status Records Found INFORMATION SOURCE (unrecogn ized section and content) DATE CREATED AUTHOR 02/12/2021 [facility] DATE CREATED AUTHOR AUTHOR'S ORGANIZ ATION 01/18/2024 [facility] DATE CREATED AUTHOR AUTHOR'S ORGANIZ ATION 01/05/2025 [facility] Care Teams (unrecognized sec tion and content) Team Status: Inactive Member Role Status Dates Johann Lee DO Primary Care Provider, Referring Provider Active Eber Krause MDAttkevan ProviderActive Team Status: Active Member Role Status Dates Johann Lee DO Primary Care Provider Active Team Status: Inactive Member Role Status Dates Johann Lee DO Primary Care Provider Active Michelle Cristina APRN ACNP-BCAttkevan ProviderActive Team Status: Inactive Member Role Status Dates Johann Lee DO Primary Care Provid er, Attending Provider Active Start: December 25, 2023 End: December 25, 2023 Team Status: Inactive Member Role Status Dates Johann Lee DO Primary Care Provider Active Start: 2024 End: January 02, 2024Edvin Hastings MDAttkevan ProviderActiveStart: 2024 End: 2024 Team Status: Inactive Member Role Status Dates Johann Lee DO Primary Care Provider Active Start: January 16, 2024 End: January 16, 2024Irina Mera ProviderActiveStart: January 16, 2024 End: January 16, 2024 Team Status: Inactive Member Role Status Dates Johann Lee DO Primary Care Provider Active Start: February 05, 2024 End: February 05, 2024Irina Mera ProviderActiveStart: February 05, 2024 End: February 05, 2024 Team Status: Active Member Role Status Dates Johann Lee DO Primary Care Provider Active Start: February 07, 2024 Suresh Naik DOAttkevan ProviderActiveStart: February 07, 2024 Team Status: Active Member Role Status Dates Johann Lee DO Primary Care Provider Active Start: February 08, 2024 Irina James ProviderActiveStart: February 08, 2024 Team Status: Active Member Role Status Dates Johann Lee DO Primary Care Provider Active Start: February 09, 2024 Irina James ProviderActiveStart: February 09, 2024 Team Status: Active Member Role Status Dates Johann Lee DO Primary Care Provider Active Start: February 10, 2024 Chad White ProviderActiveStart: February 10, 2024 Team Status: Inactive Member Role Status Dates Johann Lee DO Primary Care Provid er, Attending Provider Active Start: February 10, 2024 End: February 10, 2024 Team Status: Inactive Member Role Status Dates Johann Lee DO Primary Care Provider Active Start: February 13, 2024 End: February 13, 2024MaIrina Roberts ProviderActiveStart: February 13, 2024 End: February 13, 2024 Team Status: Inactive Member Role Status Dates Johann Lee DO Primary Care Provid er, Attending Provider Active Start: March 11, 2024 End: March 11, 2024 Team Status: Inactive Member Role Status Dates Johann Lee DO Primary Care Provider Active Start: May 20, 2024 End: May 20, 2024Irina Mera ProviderActiveStart: May 20, 2024 End: May 20, 2024 Team Status: Inactive Member Role Status Dates Johann Lee DO Primary Care Provid er, Attending Provider Active Start: June 10, 2024 End: June 10, 2024 Team Status: Inactive Member Role Status Dates Johann Lee DO Primary Care Provider Active Start: June 18, 2024 End: June 18, 2024Irina Mera ProviderActiveStart: June 18, 2024 End: June 18, 2024 Team Status: Inactive Member Role Status Dates Johann Lee DO Primary Care Provid er, Referring Provider Active Start: July 08, 2024 End: July 08, 2024GeIrina Jenkins ProviderActiveStart: July 08, 2024 End: July 08, 2024 Team Status: Active Member Role Status Dates Johann Lee DO Primary Care Provider Active Start: July 08, 2024 Daniel Gloria , MDAttending ProviderActiveStart: July 08, 2024 Team Status: Inactive Member Role Status Dates Johann Lee DO Primary Care Provider Active Start: July 08, 2024 End: July 08, 2024Georrosa maria Gloria , MDAttending ProviderActiveStart: July 08, 2024 End: July 08, 2024 Team Status: Inactive Member Role Status Dates Johann Lee DO Primary Care Provider Active Start: July 13, 2024 End: July 13, 2024Georrosa maria Gloria , MDAttending ProviderActiveStart: July 13, 2024 End: July 13, 2024 Team Status: Inactive Member Role Status Dates Johann Lee DO Primary Care Provider Active Start: August 10, 2024 End: August 10, 2024Georrosa maria Gloria , MDAttending ProviderActiveStart: August 10, 2024 End: August 10, 2024 Team Status: Inactive Member Role Status Dates Johann Lee DO Primary Care Provider Active Start: July 08, 2024 End: July 08, 2024SetRajiv Magañaing ProviderActiveStart: July 08, 2024 End: July 08, 2024Georrosa maria Gloria , MDAttending ProviderActiveStart: July 08, 2024 End: July 08, 2024 Team Status: Inactive Member Role Status Dates Johann Lee DO Primary Care Provider Active Start: September 17, 2024 End: September 17, 2024Setasif Lee DOAttending ProviderActiveStart: September 17, 2024 End: September 17, 2024 Team Status: Inactive Member Role Status Dates Johann Lee DO Primary Care Provider Active Start: September 24, 2024 End: September 24, 2024Edvin Hastings MDAttending ProviderActiveStart: September 24, 2024 End: September 24, 2024 Team Status: Active Member Role Status Dates Johann Lee DO Primary Care Provider Active Start: October 23, 2024 Randi Garcia , DOAttending ProviderActiveStart: October 23, 2024 Team Status: Inactive Member Role Status Dates Johann Lee DO Primary Care Provider Active Start: October 23, 2024 End: October 23, 2024Rarollyflora Santana , MDAttending ProviderActiveStart: October 23, 2024 End: October 23, 2024 Team Status: Active Member Role Status Dates Johann Lee DO Primary Care Provider Active Start: October 24, 2024 Rafneris Massouh , MDAttending ProviderActiveStart: October 24, 2024 Team Status: Active Member Role Status Dates Johann Lee DO Primary Care Provider Active Start: October 25, 2024 Rafneris Massdanielh , MDAttending ProviderActiveStart: October 25, 2024 Team Status: Active Member Role Status Dates Johann Lee DO Primary Care Provider Active Start: October 26, 2024 Rafneris Massouh , MDAttending ProviderActiveStart: October 26, 2024 Team Status: Active Member Role Status Dates Johann Lee DO Primary Care Provider Active Start: October 27, 2024 María Quintanaouh , MDAttending ProviderActiveStart: October 27, 2024 Team Status: Active Member Role Status Dates Johann Lee DO Primary Care Provider Active Start: October 28, 2024 Tyra Mar ProviderActiveStart: October 28, 2024 Team Status: Active Member Role Status Dates Johann Lee DO Primary Care Provider Active Start: October 29, 2024 Sena Izquierdo , MDAttending ProviderActiveStart: October 29, 2024 Team Status: Inactive Member Role Status Dates Johann Lee DO Primary Care Provider Active Start: November 03, 2024 End: November 03car Porras , MDAttending ProviderActiveStart: November 03, 2024 End: November 03, 2024 Team Status: Inactive Member Role Status Dates Johann Lee DO Primary Care Provider Active Start: November 04, 2024 End: November 04, 2024Johann Lee DOAttending ProviderActiveStart: November 04, 2024 End: November 04, 2024 Team Status: Inactive Member Role Status Dates Johann Lee DO Primary Care Provider Active Start: November 09, 2024 End: November 09, 2024Micpaige Marin , MDAttending ProviderActiveStart: November 09, 2024 End: November 09, 2024Sena Izquierdo , MDReferring ProviderActiveStart: November 09, 2024 End: November 09, 2024 Team Status: Active Member Role Status Dates Johann Lee DO Primary Care Provider Active Start: November 10, 2024 María Santana , MDAttending ProviderActiveStart: November 10, 2024 Team Status: Inactive Member Role Status Dates Johann Lee DO Primary Care Provider Active Start: November 11, 2024 End: November 11kaylan Gomez , MDAttending ProviderActiveStart: November 11, 2024 End: November 11, 2024 Team Status: Inactive Member Role Status Dates Johann Lee DO Primary Care Provider Active Start: November 13, 2024 End: November 13, 2024Gegretel Gloria MDAttending ProviderActive Start: November 13, 2024 End: November 13, 2024 Team Status: Active Member Role Status Dates Johann Lee DO Primary Care Provider Active Start: November 17, 2024 Norbert Porras MDAttending ProviderActiveStart: November 17, 2024 Team Status: Inactive Member Role Status Dates Johann Lee DO Primary Care Provider Active Start: November 23, 2024 End: November 23, 2024Micpaige Marin , MDAttending ProviderActiveStart: November 23, 2024 End: November 23, 2024 Team Status: Active Member Role/Relationship Status Dates Johann Lee DO Primary Care Provider Active Team Status: Inactive Member Role/Relationship Status Dates Johann Lee DO Primary Care Provider Active Start: September 24, 2024 End: September 24, 2024Edvin Hastings MDAttending ProviderActiveStart: September 24, 2024 End: September 24, 2024 Team Status: Active Member Role/Relationship Status Dates Johann Lee DO Primary Care Provider Active Start: October 23, 2024 Randi Chiquita Marker , DOAttending ProviderActiveStart: October 23, 2024 Team Status: Inactive Member Role/Relationship Status Dates Johann Lee DO Primary Care Provider Active Start: October 23, 2024 End: October 23, 2024Rarollyflora Santana , MDAttending ProviderActiveStart: October 23, 2024 End: October 23, 2024 Team Status: Active Member Role/Relationship Status Dates Johann Lee DO Primary Care Provider Active Start: October 24, 2024 María Quintanaouh , MDAttending ProviderActiveStart: October 24, 2024 Team Status: Active Member Role/Relationship Status Dates Johann Lee DO Primary Care Provider Active Start: October 25, 2024 María Quintanadoris , MDAttending ProviderActiveStart: October 25, 2024 Team Status: Active Member Role/Relationship Status Dates Johann Lee DO Primary Care Provider Active Start: October 26, 2024 María Quintanadoris , MDAttending ProviderActiveStart: October 26, 2024 Team Status: Active Member Role/Relationship Status Dates Johann Lee DO Primary Care Provider Active Start: October 27, 2024 María Quintanadanielasif , MDAttending ProviderActiveStart: October 27, 2024 Team Status: Active Member Role/Relationship Status Dates Johann Lee DO Primary Care Provider Active Start: October 28, 2024 Tyra Marksding ProviderActiveStart: October 28, 2024 Team Status: Active Member Role/Relationship Status Dates Johann Lee DO Primary Care Provider Active Start: October 29, 2024 Sena Izquierdo , MDAttending ProviderActiveStart: October 29, 2024 Team Status: Inactive Member Role/Relationship Status Dates Johann Lee DO Primary Care Provider Active Start: November 03, 2024 End: November 03car Porras , MDAttending ProviderActiveStart: November 03, 2024 End: November 03, 2024 Team Status: Inactive Member Role/Relationship Status Dates Johann Lee DO Primary Care Provider Active Start: November 04, 2024 End: November 04, 2024Johann Lee DOAttending ProviderActiveStart: November 04, 2024 End: November 04, 2024 Team Status: Inactive Member Role/Relationship Status Dates Johann Lee DO Primary Care Provider Active Start: November 09, 2024 End: November 09, 2024Michael Blank , MDAttending ProviderActiveStart: November 09, 2024 End: November 09, 2024Sena Izquierdo , MDReferring ProviderActiveStart: November 09, 2024 End: November 09, 2024 Team Status: Active Member Role/Relationship Status Dates Johann Lee DO Primary Care Provider Active Start: November 10, 2024 María Santana , MDAttending ProviderActiveStart: November 10, 2024 Team Status: Inactive Member Role/Relationship Status Dates Johann Lee DO Primary Care Provider Active Start: November 11, 2024 End: November 11kaylan Gomez , MDAttending ProviderActiveStart: November 11, 2024 End: November 11, 2024 Team Status: Inactive Member Role/Relationship Status Dates Johann Lee DO Primary Care Provider Active Start: November 13, 2024 End: November 13, 2024Georrosa maria Gloria , MDAttending ProviderActive Start: November 13, 2024 End: November 13, 2024 Team Status: Active Member Role/Relationship Status Dates Johann Lee DO Primary Care Provider Active Start: November 17, 2024 Norbert Porras , MDAttending ProviderActiveStart: November 17, 2024 Team Status: Inactive Member Role/Relationship Status Dates Johann Lee DO Primary Care Provider Active Start: November 23, 2024 End: November 23, 2024Micpaige Blank , MDAttending ProviderActiveStart: November 23, 2024 End: November 23, 2024 Team Status: Active Member Role/Relationship Status Dates Johann Lee DO Primary Care Provider Active Start: November 24, 2024 María Santana , MDAttending ProviderActiveStart: November 24, 2024 Team Status: Inactive Member Role/Relationship Status Dates Johann Lee DO Primary Care Provider Active Start: December 21, 2024 End: December 21, 2024Johann Lee DOAttending ProviderActiveStart: December 21, 2024 End: December 21, 2024 Goals (unrecognized section and content) Goals [...] BE BASED ON THE PRIMARY CLINICAL RECORDS. [employer] [facility]. provides no warranty or guarantee of the accuracy or completeness of information in this document.
[2025-01-14 15:38] LABS: Hematocrit 30.8 % (42.0-54.0); Hemoglobin 9.8 g/dL (14.0-18.0); Mean Corpuscular HGB Conc 31.8 g/dL (29.9-35.2); Mean Corpuscular Hemoglobin 27.3 pg (25.9-34.0); Mean Corpuscular Volume 85.8 fL (80.0-94.0); Platelet Count 302 10^3/uL (150-450); Red Blood Count 3.59 10^6/uL (4.70-6.10); White Blood Count 7.8 10^3/uL (4.0-11.0)
[2025-01-14 15:50] LABS: Glucose Urine UA NEGATIVE (NEGATIVE)
[2025-01-14 15:57] LABS: Cast Seen? NONE SEEN #/LPF (NONE SEEN); Crystals Seen? None Seen #/HPF (None Seen)
[2025-01-14 16:00] LABS: Albumin Level 2.9 g/dL (3.4-5.0); Anion Gap 10.9; Blood Urea Nitrogen 43.0 mg/dL (7.0-18.0); Calcium 8.5 mg/dL (8.5-10.1); Carbon Dioxide 23.7 mmol/L (21.0-32.0); Chloride 108 mmol/L (98-107); Estimated GFR (African America 25 (>=60 mL/min/1.73m^2); Estimated GFR (Non-African Ame 20 (>=60 mL/min/1.73m^2); Glucose 91 mg/dL (74-106); Magnesium 2.0 mg/dL (1.8-2.4); Potassium 3.6 mmol/L (3.5-5.1); Sodium 139 mmol/L (136-145); Uric Acid 7.7 mg/dL (3.5-7.2)
[2025-01-14 16:20] LABS: Protein Creatinine Ratio Urine 5.48; Total Protein Urine Random 413.0 mg/dL (<=11.9)
[2025-01-14 17:11] LABS: Iron 26.0 ug/dL (65.0-175.0); Percent Iron Saturation 9.7 %; Total Iron Binding Capacity 267.0 ug/dL (250.0-450.0)
[2025-01-14 17:35] LABS: Ferritin 89.0 ng/mL (26.0-388.0)
[2025-01-18 16:09] LABS: Albumin 3.0 g/dL (2.9-4.4); Alpha-1-Globulin 0.3 g/dL (0.0-0.4); Alpha-2-Globulin 0.8 g/dL (0.4-1.0); Free Kappa Lt Chains,S 135.6 mg/L (3.3-19.4); Free Lambda Lt Chains,S 123.2 mg/L (5.7-26.3); Gamma Globulin 1.8 g/dL (0.4-1.8); Immunofixation Result, Serum Comment: (.); Immunoglobulin A, Qn, Serum 386 mg/dL (90-386); Kappa/Lambda Ratio,S 1.10 (0.26-1.65)
== END 2025-01-14 15:08 | disposition home or self-care (01) ==
PROVIDERS: PCP Family Medicine; Visit Provider Internal Medicine
DX: N25.81 Secondary hyperparathyroidism of renal origin (principal); I12.9 Hypertensive chronic kidney disease with stage 1 through stage 4 chronic kidney disease, or unspecified chronic kidney disease; R80.9 Proteinuria, unspecified; N18.9 Chronic kidney disease, unspecified; D63.1 Anemia in chronic kidney disease; N18.4 Chronic kidney disease, stage 4 (severe)
CPT/HCPCS: 36415; 80069; 81001; 82306; 82570; 82728; 82784; 83521; 83540; 83550; 83735; 83970; 84155; 84156; 84165; 84166; 84550; 85027; 86334; 86335